=== PATIENT | male | born 1965 | race Caucasian/White ===

== ENCOUNTER 2024-02-22 17:30 | Outpatient (RCR) | payer SELFPAY | END 2024-02-22 23:59 | LOC: NS 17:30 | DX: Z71.3 Dietary counseling and surveillance (principal) ==

== ENCOUNTER 2025-03-17 12:22 | Inpatient (IN) | payer OTHER, SELFPAY ==
[2025-03-17 12:22] VITALS: BMI 38.8
--- OUTSIDE RECORDS SUMMARY | 2025-03-17 12:24 | XMS RPT_ITS | CCD ---
Author Organization [facility] Care Team Providers Care Application Chemist Name Role Phone Juan R Osullivan MD Primary Care Provider Referred, Self Attending Unavailable Referred, Self Attending Unavailable Juan R Osullivan MD Primary Care Provider [place] PATIENT SERVICE TECHNICIAN PST.[place] OLMEDO Unavailable [place] PATIENT SERVICE TECHNICIAN PST.Karla OLMEDO Unavailable PODLOGAR, [place] Referring Unavailable JUAN R OSULLIVAN Primary Care Unavailab le PODLOGAR, [place] Attending Unavailable JUAN R OSULLIVAN Primary Care Unavailab le [place] PATIENT SERVICE TECHNICIAN PST.Karla OLMEDO Unavailable Allergies Allergy Classification Reported Allergen(s) Allergy Type Date of Onset Reaction(s) Facility Angiotensin 2 Receptor Blockers (ARB) (1 source) Losartan Drug Allergy 2 GI Upset [facility] Work Phone: (20 sources) Seasonal allergy; Translations: [SEASONAL ALLERGIES] Allergy to substance 7 Other: See [facility] (20 sources) Losartan; Translations: [LOSARTAN] Drug Allergy 2 GI Upset [facility] Work Phone: (1 source) ALLERGIES NOT ON FILE; Translations: [ALLERGIES NOT ON FILE] Propensity to adverse reactions (disorder) [facility] Medications Current Medications Medication Drug Class(es) Dates Sig (Normalized) Sig (Original) atorvastatin 20 mg oral tablet (20 sources) HMG-CoA Reductase Inhibitor Start: 06-01-2022 End: 12-05-2023 take 1 tablet by mouth once daily at bedtime for hyperlipidemia atorvastatin (LIPITOR) 20 mg tablet Indications: Hyperlipidemia, mixed Take 1 tablet by mouth daily at bedtime. For cholesterol. 30 tablet 5 12/05/2023 Active Start: 03-09-2021 take 1 tablet by inge th once daily at bedtime for hyperlipidemia atorvastatin (LIPITOR) 20 mg tablet Indications: Hyperlipidemia, mixed Take 1 tablet by mouth daily at bedtime. For cholesterol. 30 tablet 5 03/09/2021 Active Comment on above: Take 1 tablet by inge th daily at bedtime. For cholesterol. bisacodyl 5 mg delayed release oral tablet (1 source) Stimulant Laxative Start: 03-15-20 25 Bisacodyl (DULCOLAX) 5 mg tab Take 2 tablets by mouth as needed for constipation. 20 tablet 03/15/2025 Active 12 hr cetirizine hydrochloride 5 mg / pseudoephedrine hydrochloride 120 mg extended release oral tablet (20 sources) alpha-Adrenergic Agonist, Histamine-1 Receptor Antagonist take 1 tablet by mouth once daily cetirizine-pseudoe phedrine (ZYRTEC-D) 5-120 mg per tablet Take 1 tablet by mouth once daily. Active Comment on above: Take 1 tablet by inge th once daily. CPAP (20 sources) Start: 10-18-19 18 CPAP Indications: SILVANO (obstructive sleep apnea) Initiate Auto PAP @ 5-20 cm of water with humidification. Mask (per patient preference) optional chin strap (if indicated) , filters, tubing, humidifier and lifetime supplies. 1 Device 10/17/2017 Active Start: 10-17-2017 CPAP Indicatio ns: SILVANO (obstructive sleep apnea) Initiate Auto PAP @ 5-20 cm of water with humidification. Mask (per patient preference) optional chin strap (if indicated) , filters, tubing, humidifier and lifetime supplies. 1 Device 0 10/17/2017 Active Comment on above: Initiate Auto PAP @ 5-20 cm of water with humidification. Mask (per patient preference) optional chin strap (if indicated) , filters, tubing, humidifier and lifetime supplies. empagliflozin 10 mg oral tablet (20 sources) Sodium-Glucose Cotransporter 2 Inhibitor Start: 024 End: 025 take 1 tablet by mouth once daily, then take 1 tablet by mouth once daily in the morning empagliflozin (JARDIANCE) 10 mg tablet Indications: Type 2 diabetes mellitus with hyperglycemia, unspecified whether jail insulin use (HCC) Take 1 tablet by mouth once daily. Take 1 tablet once daily in the morning 30 tablet 08/29/2024 Active Start: 12-23-2023 take 1 tablet by inge th once daily, then take 1 tablet by mouth once daily in the morning empagliflozin (JARDIANCE) 10 mg tablet Take 1 tablet by mouth once daily. Take 1 tablet once daily in the morning 30 tablet 1 12/23/2023 Active 3 ml insulin glargine 100 unt/ml pen injector (17 sources) Insulin Analog Start: 03-05-2024 End: 11-27-2024 inject 10 [IU] by subcutaneous injection once daily at bedtime insulin glargine (LANTUS SOLOSTAR U-100 INSULIN) 100 unit/mL (3 mL) Inject 10 Units subcutaneously daily at bedtime. 9 mL 08/29/2024 Active Start: 12-23-2023 inject 10 [IU] by lamar bcutaneous injection once daily at bedtime insulin glargine (LANTUS SOLOSTAR U-100 INSULIN) 100 unit/mL (3 mL) Inject 10 Units subcutaneously daily at bedtime. 3 Each 0 12/23/2023 Active lisinopril 10 mg oral tablet (20 sources) Angiotensin Converting Enzyme Inhibitor Start: 12-05-2023 take 1 tablet by mouth once daily lisinopril (ZESTRIL) 10 mg tablet Take 1 tablet by mouth once daily. 30 tablet 1 12/05/2023 Active Start: 05-27-2022 End: 12-05-2023 take 1 tablet by mouth once daily lisinopril (ZESTRIL, PRINIVIL) 20 mg tablet Indications: Essential hypertension Take 1 tablet by mouth once daily. 30 tablet 2 05/27/2022 12/05/2023 Discontinued Comment on above: Take 1 tablet by inge th once daily. polyethylene glycol 3350 40028 mg powder for oral solution (1 source) Osmotic Laxative Start: 03-15-2025 polyethylene glycol 3350 (MIRALAX) 17 gram/dose powder Dissolve dose in 4 - 8 ounces of liquid and take as directed. 116 g 03/15/2025 Active predniSONE 10 mg oral tablet (1 source) Start: 04-12-2023 End: 04-21-2023 predniSONE (DELTASONE) 10 mg tablet Indications: Irritant contact dermatitis, unspecified trigger Take 4 tabs daily for 3 days, then 2 tabs daily for 3 days, then 1 tab daily for 3 days with food. 21 tablet 0 04/12/2023 04/21/2023 Active Comment on above: Take 4 tabs daily fo r 3 days, then 2 tabs daily for 3 days, then 1 tab daily for 3 days with food. tadalafil 10 mg oral tablet (20 sources) Phosphodiesterase 5 Inhibitor Start: 06-22-2022 Tadalafil (CIALIS) 10 mg tablet Take 1 tablet by mouth as needed (Prior to sexual intercourse). 12 tablet 1 06/22/2022 Active Comment on above: Take 1 tablet by inge th as needed (Prior to sexual intercourse). Completed/Discontinued Medications Medication Drug Class(es) Dates Sig (Normalized) Sig (Original) famotidine 20 mg oral tablet (1 source) Histamine-2 Receptor Antagonist Start: 03-06-2021 End: 11-04-2021 take 1 tablet by mouth at bedtime as needed famotidine (PEPCID) 20 mg tablet Indications: Heartburn Take 1 tablet by mouth at bedtime as needed. 90 tablet 1 03/06/2021 11/04/2021 Discontinued (Course of therapy completed) Comment on above: Take 1 tablet by inge th at bedtime as needed. fluticasone propionate 0.05 mg/actuat metered dose nasal spray (3 sources) Corticosteroid End: 05-27-2022 take 1 spray(s) nasal route once daily fluticasone (FLONASE) 50 mcg/actuation nasal spray Use 1 [place] in each nostril once daily. 0 05/27/2022 Discontinued Comment on above: Use 1 [place] in each nostril once daily. losartan potassium 25 mg oral tablet (3 sources) Angiotensin 2 Receptor Gabriela Start: 11-04-2021 End: 05-27-2022 take 1 tablet by mouth once daily losartan (COZAAR) 25 mg tablet Indications: Hypertension, essential Take 1 tablet by mouth once daily. 90 tablet 1 11/04/2021 05/27/2022 Discontinued Comment on above: Take 1 tablet by inge th once daily. 24 hr metFORMIN hydrochloride 500 mg extended release oral tablet (7 sources) Biguanide Start: 06-01-2022 End: 12-05-2023 take 2 tablets by mouth twice daily at mealtime metFORMIN ER (GLUCOPHAGE XR) 500 mg 24 hr tablet Indications: Type 2 diabetes mellitus without complication, without long-term current use of insulin (HCC) Take 2 tablets by mouth twice daily with meals. 360 tablet 0 06/01/2022 12/05/2023 Discontinued (Course of therapy completed) Start: 05-27-2022 End: 11-23-2022 take 1 tablet by mouth once daily at breakfast metFORMIN ER (GLUCOPHAGE XR) 500 mg 24 hr tablet Indications: Type 2 diabetes mellitus without complication, without long-term current use of insulin (HCC) Take 1 tablet by mouth daily with breakfast. 90 tablet 1 05/27/2022 11/23/2022 Active Start: 03-09-2021 End: 05-27-2022 take 1 tablet by mouth once daily at breakfast metFORMIN (GLUCOPHAGE) 500 mg tablet Indications: Type 2 diabetes mellitus without complication, without long-term current use of insulin (HCC) Take 1 tablet by mouth daily with breakfast. 30 tablet 11 03/09/2021 05/27/2022 Discontinued Comment on above: Take 1 tablet by inge th daily with breakfast. Take 2 tablets by mo uth twice daily with meals. sildenafil 100 mg oral tablet (4 sources) Phosphodiesterase 5 Inhibitor Start: 11-26-2017 End: 06-22-2022 sildenafil (VIAGRA) 100 mg tablet Indications: Skin tag Take 1 tablet by mouth as needed (sexual intercourse). 6 tablet 2 11/26/2017 06/22/2022 Discontinued Comment on above: Take 1 tablet by inge th as needed (sexual intercourse). Problems Active Problems Problem Classification Problem Date Documented Da te Episodic/Chronic Allergic reactions (1 source) Irritant contact dermatitis; Translations: [Irritant contact dermatitis, unspecified cause] 04-12-2023 Episodic Diabetes mellitus with complications (5 sources) Hyperglycemia due to type 2 diabetes mellitus; Translations: [Type 2 diabetes mellitus with hyperglycemia] Onset: 5 03-06-2024 Chronic Diabetes mellitus without complication (20 sources) Type 2 diabetes mellitus without complication; Translations: [Type 2 diabetes mellitus without complications] Onset: 1 Chronic Diabetes mellitus without complication (20 sources) Prediabetes; Translations: [Prediabetes] 06-07-2017 Episodic Disorders of lipid metabolism (20 sources) Hyperlipidemia; Translations: [Hyperlipidemia, unspecified] Onset: 4 05-05-2017 Chronic Esophageal disorders (20 sources) Gastroesophageal reflux disease; Translations: [Gastro-esophageal reflux disease without esophagitis] 05-05-2017 Chronic Essential hypertension (20 sources) Essential hypertension; Translations: [Essential (primary) hypertension] Onset: 2 Chronic Immunizations and screening for infectious disease (2 sources) Needs influenza immunization; Translations: [Encounter for immunization] Episodic Other and unspecified benign neoplasm (1 source) Apocrine cystadenoma; Translations: [Other benign neoplasm of skin, unspecified] Episodic Other gastrointestinal disorders (4 sources) Acute constipation; Translations: [Constipation, unspecified] 03-15-2025 Episodic Other lower respiratory disease (20 sources) Snoring; Translations: [Snoring] 05-05-2017 Episodic Other male genital disorders (20 sources) Male erectile dysfunction, unspecified; Translations: [Impotence of organic origin] Onset: 8 10-17-2017 Chronic Other nutritional; endocrine; and metabolic disorders (20 sources) Body mass index 40+ - severely obese; Translations: [Morbid (severe) obesity due to excess calories] 05-05-2017 Chronic Other screening for suspected conditions (not mental disorders or infectious disease) (2 sources) Patient encounter status; Translations: [Encounter for screening for malignant neoplasm of prostate] Episodic Other skin disorders (1 source) Skin tag; Translations: [Other hypertrophic disorders of the skin] Episodic Other upper respiratory disease (20 sources) Seasonal allergy; Translations: [Other seasonal allergic rhinitis] 05-05-2017 Chronic Residual codes; unclassified (20 sources) Obstructive sleep apnea syndrome; Translations: [Obstructive sleep apnea (adult) (pediatric)] Chronic Residual codes; unclassified (1 source) Obstructive sleep apnea (adult) (pediatric); Translations: [SILVANO (obstructive sleep apnea)] Onset: 8 Chronic Past or Other Problems Problem Classification Problem Date Documented Da te Episodic/Chronic Other skin disorders (20 sources) Hidradenitis suppurativa; Translations: [Hidradenitis suppurativa] Onset: 07-22-2021 07-22-2021 Episodic Screening and history of mental health and substance abuse codes (1 source) Encounter for screening for depression; Translations: [Depression screening] Onset: 12-05-2023 Episodic Results Test Name Value Interpretation Reference Range Facil ity XR Abdomen Supine and Uprigh ton 03-15-2025 IMPRESSION: Moderate to large stool burden. Intranet Developer: MAYELIN Transcribe Date/Time: Mar 15 2025 2:49P Dictated by : RAUL YUSUF MD This examination was interpreted and the report reviewed and electronically signed by: RAUL YUSUF MD on Mar 15 2025 2:49PM EST DIVISION OF RADIOLOGY * * *Final Report* * * DATE OF EXAM: Mar 15 2025 2:37PM [id number] - XR ABD 2V SUPINE W UPR/DECUB/CTL / PROCEDURE REASON: Acute constipation * * * * Physician Interpretation * * * * EXAMINATION / TECHNIQUE: XR ABD 2V SUPINE W UPR/DECUB/CTL HISTORY: Acute constipation COMPARISON: None RESULT: Moderate to large stool burden. Nonobstructive bowel gas pattern. Degenerative spine changes. DIVISION OF RADIOLOGY Provider, [facility] - 03/15/2025 * * *Final Report* * * DATE OF EXAM: Mar 15 2025 2:37PM [id number] - XR ABD 2V SUPINE W UPR/DECUB/CTL / PROCEDURE REASON: Acute constipation * * * * Physician Interpretation * * * * EXAMINATION / TECHNIQUE: XR ABD 2V SUPINE W UPR/DECUB/CTL HISTORY: Acute constipation COMPARISON: None RESULT: Moderate to large stool burden. Nonobstructive bowel gas pattern. Degenerative spine changes. IMPRESSION IMPRESSION: Moderate to large stool burden. Intranet Developer: MAYELIN Transcribe Date/Time: Mar 15 2025 2:49P Dictated by : RAUL YUSUF MD This examination was interpreted and the report reviewed and electronically signed by: RAUL YUSUF MD on Mar 15 2025 2:49PM EST [facility] Radiology Study observation (narrative) [facility] XR Abdomen Supine and Uprigh tOrdered By: Cc Provider on 03-15-2025 [facility] Steven 11-14-2024 CNPN Telephone (FAMPWS) PHI GONZALEZ ([id number]) 1965 M Date Time Provider Department 11/14/24 JUAN R OSULLIVAN During your visit today, we recorded the following information about you: Juan R Osullivan MD 11/14/2024 2:57 PM Signed Patient is due for f/u on DM and SILVANO. Cancelled last 2 OV's. I got the following message from DM education: Saw this patient today for diabetes ed, just some thoughts for consideration. Refer to [facility] for evaluation, not using his CPAP at all. Second thought, consider a GLP-1, if he is a good candidate from a medical stand point, he is interested. Sleep apnea is now an indicator for [place]. Not sure if his insurance will cover and which one is preferred, but worth considering. Recommend OV in next 1-2 weeks. Jessica Wynn LPN 11/14/2024 3:26 PM Signed Contacted patient and agreeable. Patient scheduled for 11/30/24. Jessica Wynn LPN Allergies As of Date: 11/14/2024 Noted Allergy Reaction LOSARTAN 05/27/2022 8 - GI Upset SEASONAL ALLERGIES 05/05/2017 14 - Other: See Comments Comments: Watery eyes, cough, and stuffy nose Date Reviewed: 12/05/2023 Reviewed by: Trevor Hill LPN - Fully Assessed Reason for Visit: Appointment [[id number]] Prescriptions as of 11/14/2024 - insulin needles, DISPOSABLE, (PEN NEEDLE) 31 gauge x 5/16 Use one needle per dose. once per day. - insulin glargine (LANTUS SOLOSTAR U-100 INSULIN) 100 unit/mL (3 mL) Inject 10 Units subcutaneously daily at bedtime. - empagliflozin (JARDIANCE) 10 mg tablet Take 1 tablet by mouth once daily. Take 1 tablet once daily in the morning - empagliflozin (JARDIANCE) 10 mg tablet Take 1 tablet by mouth once daily. Take 1 tablet once daily in the morning - Lancets Test blood sugar(s) 3 times daily. Dx: Type 2 DM - Uncontrolled E11.65 Insulin: Yes - blood sugar diagnostic (BLOOD GLUCOSE TEST) test strip Test blood sugar(s) 3 times daily. Dx: Type 2 DM - Uncontrolled E11.65 Insulin: Yes - lisinopril (ZESTRIL) 10 mg tablet Take 1 tablet by mouth once daily. - atorvastatin (LIPITOR) 20 mg tablet Take 1 tablet by mouth daily at bedtime. For cholesterol. - Tadalafil (CIALIS) 10 mg tablet Take 1 tablet by mouth as needed (Prior to sexual intercourse). - CPAP Initiate Auto PAP @ 5-20 cm of water with humidification. Mask (per patient preference) optional chin strap (if indicated) , filters, tubing, humidifier and lifetime supplies. - cetirizine-pseudoeph edrine (ZYRTEC-D) 5-120 mg per tablet Take 1 tablet by mouth once daily. Problem List As Of Date 11/14/2024 Noted Resolved Morbid obesity with BMI of 40.0-44.9, adult (HC* GERD (gastroesophageal reflux disease) [K21.9] Seasonal allergies [J30.2] Snoring [R06.83] Hyperlipidemia [E78.5] Prediabetes [R73.03] SIVLANO (obstructive sleep apnea) [G47.33] Erectile dysfunction [N52.9] 10/17/2017 Type 2 diabetes mellitus without complication, *03/09/2021 Hidradenitis suppurativa [L73.2] 07/22/2021 Essential hypertension [I10] 05/27/2022 Encounter Status:Closed by JESSICA WYNN on 11/14/24 [facility] 10-18-2024 CNNURSE Nurse Visit (EDEDSJ) PHI GONZALEZ ([id number]) 1965 M Date Time Provider Department 10/18/24 3:00 PM DANIELE MCKEON During your visit today, we recorded the following information about you: Daniele Mckeon RN 10/18/2024 6:00 PM Signed DIABETES SELF-MANAGEMENT EDUCATION AND SUPPORT Location: [facility] Type of visit: Virtual (with video) individual I have communicated my name and active licensure. The patient's identity and physical location were verified at the time of this visit. Either the patient or their legal key account representative has been informed of the risks and benefits of -- and alternatives to -- treatment through a remote evaluation and consents to proceed with the evaluation remotely. Types of DSMES: Initial/Comprehensiv e (add to or update ADA spreadsheet) PATIENT'S MAIN CONCERN TODAY: my doctor suggested this visit a year ago but I never scheduled it. When my A1c went up to over 11, his nurse practitioner said I really need to take insulin, so I started. Support person present for education today: none Cognitive ability: Alert and oriented Motivation to learn: Interested Learning barriers identified by educator: none and openly discussed his lack of motivation to make healthy lifestyle changes but after more discussion, determined he has made some effort and praised for same Method of instruction: verbal INTERVENTIONS/TOPICS COVERED: -Diabetes Pathophysiology: diabetes disease process, role of insulin in the body, role of glucose in the body, difference between Type 1 and Type 2, Type 2 diabetes risk factors, progression of Type 2 , and symptoms of diabetes -Monitoring: A1c meaning and target <7%, BG targets, Pt able to do a successful self-check of BG with no coaching, and sharps disposal -Healthy Eating: impact of carbs on BG and portion sizes -Medications: medication safety/timing, reviewed home DM meds, basal insulin, oral agents discussed: empagliflozin (Jardiance), and discussed GLP-1 as an option, he was very interested, suggested he follow up discussion with PCP to determine if he would be a good candidate -Physical Activity: benefits of exercise and types of exercise -Acute Complications: hyperglycemia s/sx/tx -Chronic Complications: importance of BG control to reduce risks -Healthy Coping and Support: benefits of a support system, types of support (ex:family, friends, support groups, diabetes groups on social media) DIABETES ASSESSMENT: Referring Physician: [place] Tavares Previous Diabetes Education? No What are you hoping to gain from this visit? Help with a plan to manage and motivate In your words, what is diabetes? Body produces too much sugar What concerns you about having diabetes? Not really sure what it will take to make me take it more serious, even with my A1c high. There are things I can do to make it better, not sure why I don't. Diabetes History: Type of Diabetes: Type 2 What year were you diagnosed? 2021 Does anyone in your family have diabetes? asked/not answered unknown, adopted How do you learn best? 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 never How often does someone help you read your pill bottles? never How often does someone have to help you take care of your diabetes? never Major stressors:asked/not answered How do you manage stress? asked/not answered Do any of the following things get in the way of managing your diabetes? No self-identified issues Health History: Most recent eye exam: Asked/not answered Most recent dental exam:Asked/not answered Most recent foot exam:Asked/not answered How often do you inspect your feet at home? Asked/Not answered Do you use tobacco? Asked/not answered Do you use alcohol? Yes, How much? Has stopped drinking during the week, now just weekends, sips bourban, stopped Old fashion mixed drink, too much sugar In the past 12 months have you had any: Hospital Admissions: Asked/not answered ER Visits: Asked/not answered Primary Care Visits: Asked/not answered What are your general feelings about you overall health? Other I have sleep apnea, overweight, sedentary lifestyle, don't eat healthy, I have not changed and don't know why Medical Issues/Complications : reviewed below PAST MEDICAL HISTORY Diagnosis Date Coronary artery disease Erectile dysfunction Essential hypertension GERD (gastroesophageal reflux disease) Hyperlipidemia Morbid obesity with BMI of 40.0-44.9, adult (HCC) SILVANO (obstructive sleep apnea) severe (more content not included)... Normal [facility] Steven 08-29-2024 CNPN Telephone (FAMPWS) LISAPHI ([id number]) 1965 M Date Time Provider Department 08/29/24 JUAN R OSULLIVAN During your visit today, we recorded the following information about you: Carole Greer 08/29/2024 8:38 AM Signed Patient is asking for a refill that is empagliflozin (JARDIANCE) 10 mg tablet ( Patient last seen 12/05/23 Future visit scheduled: no PHARMACY: [facility]. Masha Aguayo MA 08/29/2024 8:48 AM Signed Per EPIC, Jardiance last prescribed 05/29/24, #30. Phone call to patient to see if he has been taking the jardiance. Pt states that he finished that prescription in June, so he has gone without all of July. Pt KILEY with [place] 12/04/24 and was asked to follow up in 3 months. DAVID Guillory Christopher B, MD 08/29/2024 9:52 AM Signed I will send in another 30 day refill, but needs OV in the next 1 month for DM follow up. Jessica Wynn LPN 08/29/2024 2:25 PM Signed Phoned patient and updated him with provider's message. Patient voiced understanding. Jessica Wynn LPN Allergies As of Date: 08/29/2024 Noted Allergy Reaction LOSARTAN 05/27/2022 8 - GI Upset SEASONAL ALLERGIES 05/05/2017 14 - Other: See Comments Comments: Watery eyes, cough, and stuffy nose Date Reviewed: 12/05/2023 Reviewed by: Trevor Hill LPN - Fully Assessed Reason for Visit: requesting refill that is [Other] Primary Visit Diagnosis:Type 2 diabetes mellitus with hyperglycemia, unspecified whether predatory animal exterminator insulin use (HCC) [E11.65] Order(s):empaglifloz in (JARDIANCE) 10 mg tabletTake 1 tablet by mouth once daily. Take 1 tablet once daily in the morningDisp: 30 tabletRfl: 0 Prescriptions as of 08/29/2024 - insulin glargine (LANTUS SOLOSTAR U-100 INSULIN) 100 unit/mL (3 mL) Inject 10 Units subcutaneously daily at bedtime. - empagliflozin (JARDIANCE) 10 mg tablet Take 1 tablet by mouth once daily. Take 1 tablet once daily in the morning - empagliflozin (JARDIANCE) 10 mg tablet Take 1 tablet by mouth once daily. Take 1 tablet once daily in the morning - insulin needles, DISPOSABLE, (PEN NEEDLE) 31 gauge x 5/16 Use one needle per dose. once per day. - Lancets Test blood sugar(s) 3 times daily. Dx: Type 2 DM - Uncontrolled E11.65 Insulin: Yes - blood sugar diagnostic (BLOOD GLUCOSE TEST) test strip Test blood sugar(s) 3 times daily. Dx: Type 2 DM - Uncontrolled E11.65 Insulin: Yes - lisinopril (ZESTRIL) 10 mg tablet Take 1 tablet by mouth once daily. - atorvastatin (LIPITOR) 20 mg tablet Take 1 tablet by mouth daily at bedtime. For cholesterol. - Tadalafil (CIALIS) 10 mg tablet Take 1 tablet by mouth as needed (Prior to sexual intercourse). - CPAP Initiate Auto PAP @ 5-20 cm of water with humidification. Mask (per patient preference) optional chin strap (if indicated) , filters, tubing, humidifier and lifetime supplies. - cetirizine-pseudoeph edrine (ZYRTEC-D) 5-120 mg per tablet Take 1 tablet by mouth once daily. Problem List As Of Date 08/29/2024 Noted Resolved Morbid obesity with BMI of 40.0-44.9, adult (HC* GERD (gastroesophageal reflux disease) [K21.9] Seasonal allergies [J30.2] Snoring [R06.83] Hyperlipidemia [E78.5] Prediabetes [R73.03] SILVANO (obstructive sleep apnea) [G47.33] Erectile dysfunction [N52.9] 10/17/2017 Type 2 diabetes mellitus without complication, *03/09/2021 Hidradenitis suppurativa [L73.2] 07/22/2021 Essential hypertension [I10] 05/27/2022 Prescriptions ordered this encounter Disp Refills Start End EMPAGLIFLOZIN 10 MG TABLET 30 t* 0 08/29/2024 09/28/2024 Route: ORAL Sig: Take 1 tablet by mouth once daily. Take 1 tablet once daily in the morning Medications Discontinued During This Encounter Prescriptions - empagliflozin (JARDIANCE) 10 mg tablet (Discontinued) Take 1 tablet by mouth once daily. Take 1 tablet once daily in the morning Encounter Status:Closed by JESSICA WYNN on 08/29/24 [facility] 06-27-2024 CNPN Telephone (FAMPWS) PHI GONZALEZ ([id number]) 1965 M Date Time Provider Department 06/27/24 JUAN R OSULLIVAN During your visit today, we recorded the following information about you: India Miller 06/27/2024 9:53 AM Signed Derik is calling Juan R Osullivan MD today to request an order for labs for his upcoming appointment. Please send a message in [employer] when labs are ordered. TY Patient has been identified by name and birthdate. Duration of symptoms: N/A Person calling: self Call patient at: at home [phone] (home) [phone] (cell) Was an appointment scheduled: No Closing statement: Results or non-symptom based questions: Thank you for calling [facility], your call will be returned within the next business day. Juan R Meng MD 06/27/2024 11:27 AM Signed Labs ordered to be completed 1-2 days prior to OV. Anthony Curran RN 06/27/2024 11:56 AM Signed [employer] msg sent to pt as requested. Allergies As of Date: 06/27/2024 Noted Allergy Reaction LOSARTAN 05/27/2022 8 - GI Upset SEASONAL ALLERGIES 05/05/2017 14 - Other: See Comments Comments: Watery eyes, cough, and stuffy nose Date Reviewed: 12/05/2023 Reviewed by: Trevor Hill LPN - Fully Assessed Reason for Visit: Orders [681] Primary Visit Diagnosis:Type 2 diabetes mellitus with hyperglycemia, unspecified whether jail insulin use (HCC) [E11.65] Order(s):ALBUMIN/CRE ATININE RATIO, URINE [SQUACR] Order #: [id number] FUTURE COMPREHENSIVE METABOLIC PANEL [SQCMP] Order #: [id number] FUTURE HEMOGLOBIN A1C [EEDWN1C] Order #: [id number] FUTURE COMPLETE BLOOD COUNT AND DIFFERENTIAL [SQCBCDIF] Order #: [id number] FUTURE LIPID PANEL, NONFASTING [SQLIPNF] Order #: [id number] FUTURE Prescriptions as of 06/27/2024 - empagliflozin (JARDIANCE) 10 mg tablet Take 1 tablet by mouth once daily. Take 1 tablet once daily in the morning - insulin glargine (LANTUS SOLOSTAR U-100 INSULIN) 100 unit/mL (3 mL) Inject 10 Units subcutaneously daily at bedtime. - insulin needles, DISPOSABLE, (PEN NEEDLE) 31 gauge x 5/16 Use one needle per dose. once per day. - Lancets Test blood sugar(s) 3 times daily. Dx: Type 2 DM - Uncontrolled E11.65 Insulin: Yes - blood sugar diagnostic (BLOOD GLUCOSE TEST) test strip Test blood sugar(s) 3 times daily. Dx: Type 2 DM - Uncontrolled E11.65 Insulin: Yes - lisinopril (ZESTRIL) 10 mg tablet Take 1 tablet by mouth once daily. - atorvastatin (LIPITOR) 20 mg tablet Take 1 tablet by mouth daily at bedtime. For cholesterol. - Tadalafil (CIALIS) 10 mg tablet Take 1 tablet by mouth as needed (Prior to sexual intercourse). - CPAP Initiate Auto PAP @ 5-20 cm of water with humidification. Mask (per patient preference) optional chin strap (if indicated) , filters, tubing, humidifier and lifetime supplies. - cetirizine-pseudoeph edrine (ZYRTEC-D) 5-120 mg per tablet Take 1 tablet by mouth once daily. Problem List As Of Date 06/27/2024 Noted Resolved Morbid obesity with BMI of 40.0-44.9, adult (HC* GERD (gastroesophageal reflux disease) [K21.9] Seasonal allergies [J30.2] Snoring [R06.83] Hyperlipidemia [E78.5] Prediabetes [R73.03] SILVANO (obstructive sleep apnea) [G47.33] Erectile dysfunction [N52.9] 10/17/2017 Type 2 diabetes mellitus without complication, *03/09/2021 Hidradenitis suppurativa [L73.2] 07/22/2021 Essential hypertension [I10] 05/27/2022 Encounter Status:Closed by ANTHONY CURRAN on 06/27/24 Normal [facility] CNCOon 05-07-2024 CNCO Letter Text Normal [facility] CNPNon 03-06-2024 CNPN Telephone (FAMPWS) PHI GONZALEZ ([id number]) 1965 M Date Time Provider Department 03/06/[facility] During your visit today, we recorded the following information about you: Daniele Cortez 03/06/2024 8:43 AM Signed Patient called to request lab orders for his upcoming follow up appt with Dr. Osullivan. Please call him at [phone] when placed. Juan R Osullivan MD 03/06/2024 10:06 AM Signed Labs ordered. Come in this week to have them done so we can review at his appointment. Iliana Irving LPN 03/06/2024 10:26 AM Signed Phoned patient left message to return call and ask to speak to a nurse. Yudi Pimentel MA 03/09/2024 10:51 AM Signed [employer] message sent to pt notifying him we tried to contact him with message left for a call back. Notified pt that fasting labs and a urine have been ordered to complete this week for his upcoming appt next week. Will keep encounter open to make sure pt has read his message. DAVID Jeter Lori, LPN 03/12/2024 3:33 PM Signed Phoned patient and advised him PCP placed orders last week and recommend at least 2 days prior to appt to complete labs. Patient reports he will try to come tomorrow to complete. Jessica Wynn LPN Allergies As of Date: 03/06/2024 Noted Allergy Reaction LOSARTAN 05/27/2022 8 - GI Upset SEASONAL ALLERGIES 05/05/2017 14 - Other: See Comments Comments: Watery eyes, cough, and stuffy nose Date Reviewed: 12/05/2023 Reviewed by: Trevor Hill LPN - Fully Assessed Reason for Visit: Lab Orders [1688] Primary Visit Diagnosis:Type 2 diabetes mellitus with hyperglycemia, unspecified whether jail insulin use (HCC) [E11.65] Order(s):COMPLETE BLOOD COUNT AND DIFFERENTIAL [SQCBCDIF] Order #: [id number] FUTURE COMPREHENSIVE METABOLIC PANEL [SQCMP] Order #: [id number] FUTURE HEMOGLOBIN A1C [VYFPH0R] Order #: [id number] FUTURE ALBUMIN/CREATININE RATIO, URINE [SQUACR] Order #: [id number] FUTURE LIPID PANEL, NONFASTING [SQLIPNF] Order #: [id number] FUTURE Prescriptions as of 03/12/2024 - empagliflozin (JARDIANCE) 10 mg tablet Take 1 tablet by mouth once daily. Take 1 tablet once daily in the morning - insulin glargine (LANTUS SOLOSTAR U-100 INSULIN) 100 unit/mL (3 mL) Inject 10 Units subcutaneously daily at bedtime. - insulin needles, DISPOSABLE, (PEN NEEDLE) 31 gauge x 5/16 Use one needle per dose. once per day. - Lancets Test blood sugar(s) 3 times daily. Dx: Type 2 DM - Uncontrolled E11.65 Insulin: Yes - blood sugar diagnostic (BLOOD GLUCOSE TEST) test strip Test blood sugar(s) 3 times daily. Dx: Type 2 DM - Uncontrolled E11.65 Insulin: Yes - lisinopril (ZESTRIL) 10 mg tablet Take 1 tablet by mouth once daily. - atorvastatin (LIPITOR) 20 mg tablet Take 1 tablet by mouth daily at bedtime. For cholesterol. - Tadalafil (CIALIS) 10 mg tablet Take 1 tablet by mouth as needed (Prior to sexual intercourse). - CPAP Initiate Auto PAP @ 5-20 cm of water with humidification. Mask (per patient preference) optional chin strap (if indicated) , filters, tubing, humidifier and lifetime supplies. - cetirizine-pseudoeph edrine (ZYRTEC-D) 5-120 mg per tablet Take 1 tablet by mouth once daily. Problem List As Of Date 03/06/2024 Noted Resolved Morbid obesity with BMI of 40.0-44.9, adult (HC* GERD (gastroesophageal reflux disease) [K21.9] Seasonal allergies [J30.2] Snoring [R06.83] Hyperlipidemia [E78.5] Prediabetes [R73.03] SILVANO (obstructive sleep apnea) [G47.33] Erectile dysfunction [N52.9] 10/17/2017 Type 2 diabetes mellitus without complication, *03/09/2021 Hidradenitis suppurativa [L73.2] 07/22/2021 Essential hypertension [I10] 05/27/2022 Encounter Status:Closed by JESSICA WYNN on 03/12/24 [facility] 02-02-2024 [facility] Telephone (PHMEWO) PHI GONZALEZ ([id number]) 1965 M Date Time Provider Department 02/02/24 CHARISSE NGUYEN KAIDEN During your visit today, we recorded the following information about you: Charisse Nguyen RPh 02/02/2024 3:58 PM Signed Primary Care Pharmacy Rescheduling Outreach Call center, please contact patient and reschedule in person, telephone, and virtual visit for Diabetes management within ~4 week(s). (Visit length: 60 minutes - NEW) Thank you, Charisse Nguyen, PharmD, BCACP Primary Care Clinical Director Of [employer] 02/02/2024 3:57 PM Madi Regan 02/02/2024 5:06 PM Signed Telephoned the patient regarding missed appt. Left a message. First attempt. Jennifer Regan HUC 02/03/2024 9:35 AM Addendum Telephoned the patient to schedule a new Primary Care pharmacy appt. Left a message.Second attempt. Made two attempts to contact the patient. Patient was sent [employer] message. If the patient returns a call, an appt will be scheduled. Madi Regan 02/09/2024 10:26 AM Signed Patient has not responded to outreach attempts via phone or [employer]. Two attempts to contact have been made. Routing to [facility]. Allergies As of Date: 02/02/2024 Noted Allergy Reaction LOSARTAN 05/27/2022 8 - GI Upset SEASONAL ALLERGIES 05/05/2017 14 - Other: See Comments Comments: Watery eyes, cough, and stuffy nose Date Reviewed: 12/05/2023 Reviewed by: Trevor Hill LPN - Fully Assessed Reason for Visit: Missed Appointment [1304] Cmt: Pharmacy Visit Rescheduling Prescriptions as of 02/09/2024 - insulin needles, DISPOSABLE, (PEN NEEDLE) 31 gauge x 5/16 Use one needle per dose. once per day. - Lancets Test blood sugar(s) 3 times daily. Dx: Type 2 DM - Uncontrolled E11.65 Insulin: Yes - blood sugar diagnostic (BLOOD GLUCOSE TEST) test strip Test blood sugar(s) 3 times daily. Dx: Type 2 DM - Uncontrolled E11.65 Insulin: Yes - empagliflozin (JARDIANCE) 10 mg tablet Take 1 tablet by mouth once daily. Take 1 tablet once daily in the morning - insulin glargine (LANTUS SOLOSTAR U-100 INSULIN) 100 unit/mL (3 mL) Inject 10 Units subcutaneously daily at bedtime. - lisinopril (ZESTRIL) 10 mg tablet Take 1 tablet by mouth once daily. - atorvastatin (LIPITOR) 20 mg tablet Take 1 tablet by mouth daily at bedtime. For cholesterol. - Tadalafil (CIALIS) 10 mg tablet Take 1 tablet by mouth as needed (Prior to sexual intercourse). - CPAP Initiate Auto PAP @ 5-20 cm of water with humidification. Mask (per patient preference) optional chin strap (if indicated) , filters, tubing, humidifier and lifetime supplies. - cetirizine-pseudoeph edrine (ZYRTEC-D) 5-120 mg per tablet Take 1 tablet by mouth once daily. Problem List As Of Date 02/02/2024 Noted Resolved Morbid obesity with BMI of 40.0-44.9, adult (HC* GERD (gastroesophageal reflux disease) [K21.9] Seasonal allergies [J30.2] Snoring [R06.83] Hyperlipidemia [E78.5] Prediabetes [R73.03] SILVANO (obstructive sleep apnea) [G47.33] Erectile dysfunction [N52.9] 10/17/2017 Type 2 diabetes mellitus without complication, *03/09/2021 Hidradenitis suppurativa [L73.2] 07/22/2021 Essential hypertension [I10] 05/27/2022 Encounter Status:[facility] (NANCY[facility] PHI GONZALEZ ([id number]) 1965 M Date Time Provider Department 01/27/24 INDIA TAVARES During your visit today, we recorded the following information about you: Masha Oreilly 01/27/2024 12:23 PM Livia More is calling India Tavares APRN.CNP today to request Medication Problem (Patient states that the insulin pen needles were not sent to the pharmacy. Please send script over to his pharmacy ) Patient has been identified by name and birthdate. Duration of symptoms: N/A Person calling: self Call patient at: at home [phone] (home) [phone] (cell) Was an appointment scheduled: No Closing statement: Results or non-symptom based questions: Thank you for calling [facility], your call will be returned within the next business day. India Mora APRN.CNP 01/27/2024 12:53 PM Signed Prescription sent. India Tavares APRN.Jessica Julien LPN 01/27/2024 12:59 PM Signed Patient updated and voiced understanding. Jessica Wynn LPN Allergies As of Date: 01/27/2024 Noted Allergy Reaction LOSARTAN 05/27/2022 8 - GI Upset SEASONAL ALLERGIES 05/05/2017 14 - Other: See Comments Comments: Watery eyes, cough, and stuffy nose Date Reviewed: 12/05/2023 Reviewed by: Trevor Hill LPN - Fully Assessed Reason for Visit: Medication Problem [65] Cmt: Patient states that the insulin pen needles were not sent to the pharmacy. Please send script over to his pharmacy Order(s):insulin needles, DISPOSABLE, (PEN NEEDLE) 31 gauge x 5/16Use one needle per dose. once per day.Disp: 100 EachRfl: 11 Prescriptions as of 01/27/2024 - insulin needles, DISPOSABLE, (PEN NEEDLE) 31 gauge x 5/16 Use one needle per dose. once per day. - Lancets Test blood sugar(s) 3 times daily. Dx: Type 2 DM - Uncontrolled E11.65 Insulin: Yes - blood sugar diagnostic (BLOOD GLUCOSE TEST) test strip Test blood sugar(s) 3 times daily. Dx: Type 2 DM - Uncontrolled E11.65 Insulin: Yes - empagliflozin (JARDIANCE) 10 mg tablet Take 1 tablet by mouth once daily. Take 1 tablet once daily in the morning - insulin glargine (LANTUS SOLOSTAR U-100 INSULIN) 100 unit/mL (3 mL) Inject 10 Units subcutaneously daily at bedtime. - lisinopril (ZESTRIL) 10 mg tablet Take 1 tablet by mouth once daily. - atorvastatin (LIPITOR) 20 mg tablet Take 1 tablet by mouth daily at bedtime. For cholesterol. - Tadalafil (CIALIS) 10 mg tablet Take 1 tablet by mouth as needed (Prior to sexual intercourse). - CPAP Initiate Auto PAP @ 5-20 cm of water with humidification. Mask (per patient preference) optional chin strap (if indicated) , filters, tubing, humidifier and lifetime supplies. - cetirizine-pseudoeph edrine (ZYRTEC-D) 5-120 mg per tablet Take 1 tablet by mouth once daily. Problem List As Of Date 01/27/2024 Noted Resolved Morbid obesity with BMI of 40.0-44.9, adult (HC* GERD (gastroesophageal reflux disease) [K21.9] Seasonal allergies [J30.2] Snoring [R06.83] Hyperlipidemia [E78.5] Prediabetes [R73.03] SILVANO (obstructive sleep apnea) [G47.33] Erectile dysfunction [N52.9] 10/17/2017 Type 2 diabetes mellitus without complication, *03/09/2021 Hidradenitis suppurativa [L73.2] 07/22/2021 Essential hypertension [I10] 05/27/2022 Prescriptions ordered this encounter Disp Refills Start End PEN NEEDLE, DIABETIC 31 GAUGE X 12/07 100 * 11 01/27/2024 Sig: Use one needle per dose. once per day. Encounter Status:Closed by JESSICA WYNN on 01/27/24 [facility] 12-26-2023 CNPN Telephone (PHARMN) PHI GONZALEZ ([id number]) 1965 M Date Time Provider Department 12/26/23 PHARMACIST PHARMN During your visit today, we recorded the following information about you: McconnellHemalatha Dodge 12/26/2023 10:26 AM Signed Called and spoke to patient to schedule Primary Care Pharmacy consult on 02/02/2024 (soonest available at [facility]). Allergies As of Date: 12/26/2023 Noted Allergy Reaction LOSARTAN 05/27/2022 8 - GI Upset SEASONAL ALLERGIES 05/05/2017 14 - Other: See Comments Comments: Watery eyes, cough, and stuffy nose Date Reviewed: 12/05/2023 Reviewed by: Trevor Hill LPN - Fully Assessed Reason for Visit: Appointment [186] Cmt: Primary Care Pharmacy Prescriptions as of 12/26/2023 - Lancets Test blood sugar(s) 3 times daily. Dx: Type 2 DM - Uncontrolled E11.65 Insulin: Yes - blood sugar diagnostic (BLOOD GLUCOSE TEST) test strip Test blood sugar(s) 3 times daily. Dx: Type 2 DM - Uncontrolled E11.65 Insulin: Yes - empagliflozin (JARDIANCE) 10 mg tablet Take 1 tablet by mouth once daily. Take 1 tablet once daily in the morning - insulin glargine (LANTUS SOLOSTAR U-100 INSULIN) 100 unit/mL (3 mL) Inject 10 Units subcutaneously daily at bedtime. - lisinopril (ZESTRIL) 10 mg tablet Take 1 tablet by mouth once daily. - atorvastatin (LIPITOR) 20 mg tablet Take 1 tablet by mouth daily at bedtime. For cholesterol. - Tadalafil (CIALIS) 10 mg tablet Take 1 tablet by mouth as needed (Prior to sexual intercourse). - CPAP Initiate Auto PAP @ 5-20 cm of water with humidification. Mask (per patient preference) optional chin strap (if indicated) , filters, tubing, humidifier and lifetime supplies. - cetirizine-pseudoeph edrine (ZYRTEC-D) 5-120 mg per tablet Take 1 tablet by mouth once daily. Problem List As Of Date 12/26/2023 Noted Resolved Morbid obesity with BMI of 40.0-44.9, adult (HC* GERD (gastroesophageal reflux disease) [K21.9] Seasonal allergies [J30.2] Snoring [R06.83] Hyperlipidemia [E78.5] Prediabetes [R73.03] SILVANO (obstructive sleep apnea) [G47.33] Erectile dysfunction [N52.9] 10/17/2017 Type 2 diabetes mellitus without complication, *03/09/2021 Hidradenitis suppurativa [L73.2] 07/22/2021 Essential hypertension [I10] 05/27/2022 Encounter Status:Closed by HEMALATHA DELANEY on 12/26/23 Normal [facility] Albumin/Creatinineon 30-2 024 Albumin/Creatinine DL <= 20 mg/L (U) [Mass ratio] 6.2 ug/mg Creat Normal <30.0 [facility] Comment on above: Performed By: #### 1 4959-1 #### TAO Loza ([id number]) [facility] ([facility]) [id number] [place] [address] 20298 Albumin/Creatinine DL <= 20 mg/L (U) [Mass ratio]on 12-22-2023 Albumin DL <= 20 mg/L (U) [Mass/Vol] 10.2 mg/L Normal Not established [facility] Comment on above: Performed By: #### 1 4959-1 #### TAO Loza ([id number]) [facility] ([facility]) [address] [place] [address] 01937 Creatinine (U) [Mass/Vol] 163.9 mg/dL Normal 20.0-370.0 [facility] Comment on above: Performed By: #### 1 4959-1 #### TAO Loza ([id number]) [facility] ([facility]) [address] [place] [address] 13921 CBC W Auto Differential pane l (Bld)on 12-22-2023 Basophils (Bld) [#/Vol] 0.06 x10*3/uL Normal 0.00-0.10 [facility] Comment on above: Performed By: #### 5 7021-8 #### ISABEL MENDEZ ([id number]) [facility] ([facility]) [address] [place] [address] 73580 Basophils/100 WBC (Bld) 0.9 % Normal 0.0-2.0 [facility] Comment on above: Performed By: #### 5 7021-8 #### SIABEL MENDEZ ([id number]) [facility] ([facility]) [address] [place] [address] 26759 Eosinophils (Bld) [#/Vol] 0.27 x10*3/uL Normal 0.00-0.70 [facility] Comment on above: Performed By: #### 5 7021-8 #### ISABEL MENDEZ ([id number]) [facility] ([facility]) [address] [place] [address] 81415 Eosinophils/100 WBC (Bld) 4.1 % Normal 0.0-6.0 [facility] Comment on above: Performed By: #### 5 7021-8 #### ISABEL MENDEZ ([id number]) [facility] ([facility]) [address] [place] [address] 15445 Erythrocyte distribution width (RBC) [Ratio] 12.1 % Normal 11.5-14.5 [facility] Comment on above: Performed By: #### 5 7021-8 #### ISABEL MENDEZ ([id number]) [facility] ([facility]) [address] [place] [address] Hematocrit (Bld) [Volume fraction] 46.0 % Normal 41.0-52.0 [facility] Comment on above: Performed By: #### 5 7021-8 #### ISABEL MENDEZ ([id number]) [facility] ([facility]) [address] [place] [address] Hemoglobin (Bld) [Mass/Vol] 15.3 g/dL Normal 13.5-17.5 [facility] Comment on above: Performed By: #### 5 7021-8 #### ISABEL MENDEZ ([id number]) [facility] ([facility]) [address] [place] [address] 35609 Immature granulocytes (Bld) [#/Vol] 0.02 x10*3/uL Normal 0.00-0.70 [facility] Comment on above: Performed By: #### 5 7021-8 #### ISABEL MENDEZ ([id number]) [facility] ([facility]) [address] [place] [address] 57385 Immature granulocytes/100 WBC (Bld) 0.3 % Normal 0.0-0.9 [facility] Comment on above: Result Comment: Debra ture Granulocyte Count (IG) includes promyelocytes, myelocytes and metamyelocytes but does not include bands. Percent differential counts (%) should be interpreted in the context of the absolute cell counts (cells/UL). Performed By: #### 5 7021-8 #### ISABEL MENDEZ ([id number]) [facility] ([facility]) [address] [place] [address] 47857 Lymphocytes (Bld) [#/Vol] 2.00 x10*3/uL Normal 1.20-4.80 [facility] Comment on above: Performed By: #### 5 7021-8 #### ISABEL MENDEZ ([id number]) [facility] ([facility]) [address] [place] [address] 18416 Lymphocytes/100 WBC (Bld) 30.4 % Normal 13.0-44.0 [facility] Comment on above: Performed By: #### 5 70-8 #### ISABEL MENDEZ ([id number]) [facility] ([facility]) [address] [place] [address] 10318 MCH (RBC) [Entitic mass] 28.9 pg Normal 26.0-34.0 [facility] Comment on above: Performed By: #### 5 7021-8 #### ISABEL MENDEZ ([id number]) [facility] ([facility]) [address] [place] [address] 73890 MCHC (RBC) [Mass/Vol] 33.3 g/dL Normal 32.0-36.0 [facility] Comment on above: Performed By: #### 5 7021-8 #### ISABEL MENDEZ ([id number]) [facility] ([facility]) [address] [place] [address] 46661 MCV (RBC) [Entitic vol] 87 fL Normal 80-100 [facility] Comment on above: Performed By: #### 5 7021-8 #### ISABEL MENDEZ ([id number]) [facility] ([facility]) [address] [place] [address] 13467 Monocytes (Bld) [#/Vol] 0.35 x10*3/uL Normal 0.10-1.00 [facility] Comment on above: Performed By: #### 5 7021-8 #### ISABEL MENDEZ ([id number]) [facility] ([facility]) [address] [place] [address] 00633 Monocytes/100 WBC (Bld) 5.3 % Normal 2.0-10.0 [facility] Comment on above: Performed By: #### 7021-8 #### ISABEL MENDEZ ([id number]) [facility] ([facility]) [address] [place] [address] 13780 Neutrophils (Bld) [#/Vol] 3.87 x10*3/uL Normal 1.20-7.70 [facility] Comment on above: Result Comment: Perc ent differential counts (%) should be interpreted in the context of the absolute cell counts (cells/uL). Performed By: #### 5 7021-8 #### ISABEL MENDEZ ([id number]) [facility] ([facility]) [address] [place] [address] 03526 Neutrophils/100 WBC (Bld) 59.0 % Normal 40.0-80.0 [facility] Comment on above: Performed By: #### 5 7021-8 #### ISABEL MENDEZ ([id number]) [facility] ([facility]) [address] [place] [address] 89695 Nucleated RBC/100 WBC (Bld) [Ratio] 0.0 /100 WBCs Normal 0.0-0.0 [facility] Comment on above: Performed By: #### 5 7021-8 #### ISABEL MENDEZ ([id number]) [facility] ([facility]) [address] [place] [address] 35116 Platelets (Bld) [#/Vol] 272 x10*3/uL Normal 150-450 [facility] Comment on above: Performed By: #### 5 7021-8 #### ISABEL MENDEZ ([id number]) [facility] ([facility]) [address] [place] [address] 62668 RBC (Bld) [#/Vol] 5.30 x10*6/uL Normal 4.50-5.90 [facility] Comment on above: Performed By: #### 5 7021-8 #### ISABEL MENDEZ ([id number]) [facility] ([facility]) [address] [place] [address] 39819 WBC (Bld) [#/Vol] 6.6 x10*3/uL Normal 4.4-11.3 [facility] Comment on above: Performed By: #### 5 7021-8 #### ISABEL MENDEZ ([id number]) [facility] ([facility]) [address] [place] [address] Cholesterol in LDL Direct as say [Mass/Vol]on 12-22-2023 Cholesterol in LDL [Mass/Vol] 110 mg/dL Normal 0-129 [facility] Comment on above: Order Comment: Tustin feliica levels of LDL cholesterol are recognized as a cleveland factor in the development of atherosclerosis and CHD. The direct LDL cholesterol test can be used to assess cardiovascular risk and monitor therapy as a follow up to a lipid profile when triglycerides are significantly elevated. Performed By: #### 1 8262-6 #### TAO Loza ([id number]) [facility] ([facility]) [address] [place] [address] Comprehensive metabolic 2000 panelon 12-22-2023 Albumin BCP dye [Mass/Vol] 3.9 g/dL Normal 3.4-5.0 [facility] Comment on above: Performed By: #### 2 4323-8 #### ISABEL MENDEZ ([id number]) [facility] ([facility]) [address] [place] [address] 23075 ALP [Catalytic activity/Vol] 56 U/L Normal 33-120 [facility] Comment on above: Performed By: #### 2 4323-8 #### ISABEL MENDEZ ([id number]) [facility] ([facility]) [address] [place] [address] 65362 ALT With P-5'-P [Catalytic activity/Vol] 22 U/L Normal 10-52 [facility] Comment on above: Result Comment: Ofelia ents treated with Sulfasalazine may generate falsely decreased results for ALT. Performed By: #### 2 4323-8 #### ISABEL MENDEZ ([id number]) [facility] ([facility]) [employer] [place] [address] Anion gap [Moles/Vol] 11 mmol/L Normal 10-20 [facility] Comment on above: Performed By: #### 2 4323-8 #### ISABEL MENDEZ ([id number]) [facility] ([facility]) [employer] [place] [address] AST With P-5'-P [Catalytic activity/Vol] 14 U/L Normal 9-39 [facility] Comment on above: Performed By: #### 2 4323-8 #### ISABEL MENDEZ ([id number]) [facility] ([facility]) [address] [place] [address] Bilirubin [Mass/Vol] 0.7 mg/dL Normal 0.0-1.2 [facility] Comment on above: Performed By: #### 2 4323-8 #### ISABEL MENDEZ ([id number]) [facility] ([facility]) [address] [place] [address]65 Calcium [Mass/Vol] 9.1 mg/dL Normal 8.6-10.3 [facility] Comment on above: Performed By: #### 2 4323-8 #### ISABEL MENDEZ ([id number]) [facility] ([facility]) [address] [place] [address] 59232 Chloride [Moles/Vol] 103 mmol/L Normal 98-107 [facility] Comment on above: Performed By: #### 2 4323-8 #### ISABEL MENDEZ ([id number]) [facility] ([facility]) [address] [place] [address] CO2 [Moles/Vol] 26 mmol/L Normal 21-[address] [facility] Comment on above: Performed By: #### 2 4323-8 #### ISABEL MENDEZ ([id number]) [facility] ([facility]) [address] [place] [address] 85606 Creatinine [Mass/Vol] 0.87 mg/dL Normal 0.50-1.30 [facility] Comment on above: Performed By: #### 2 4323-8 #### ISABEL MENDEZ ([id number]) [facility] ([facility]) [address] [place] [address] 22336 GFR/1.73 sq M.predicted MDRD (S/P/Bld) [Vol rate/Area] mL/min/{1.73_m2} Normal >60 [facility] Comment on above: Result Comment: Calc ulations of estimated GFR are performed using the 2021 CKD-EPI Study Refit equation without the race variable for the IDMS-Traceable creatinine methods. https://jasn.asnjournals.org/content//ASN.50859358 88 Performed By: #### 2 4323-8 #### ISABEL MENDEZ ([id number]) [facility] ([facility]) [address] [place] [address] 86671 Glucose [Mass/Vol] 217 mg/dL High 74-99 [facility] Comment on above: Performed By: #### 2 4323-8 #### ISABEL MENDEZ ([id number]) [facility] ([facility]) [address] [place] [address] 8[address] Potassium [Moles/Vol] 3.8 mmol/L Normal 3.5-5.3 [facility] Comment on above: Performed By: #### 2 3-8 #### ISABEL MENDEZ ([id number]) [facility] ([facility]) [address] [place] [address] 07226 Protein [Mass/Vol] 7.1 g/dL Normal 6.4-8.2 [facility] Comment on above: Performed By: #### 2 4323-8 #### ISABEL MENDEZ ([id number]) [facility] ([facility]) [address] [place] [address] 97787 Sodium [Moles/Vol] 136 mmol/L Normal 136-145 [facility] Comment on above: Performed By: #### 2 4323-8 #### ISABEL MENDEZ ([id number]) [facility] ([facility]) [address] [place] [address] 57504 Urea nitrogen [Mass/Vol] 15 mg/dL Normal 6-23 [facility] Comment on above: Performed By: #### 2 4323-8 #### ISABEL MENDEZ ([id number]) [facility] ([facility]) [address] [place] [address] 10070 HbA1c (Bld) [Mass fraction]o n 12-22-2023 Average glucose Estimated from glycated hemoglobin (Bld) [Mass/Vol] 278 mg/dL Normal Not Established [facility] Comment on above: Order Comment: Diagn osis of Diabetes-Adults Non-Diabetic: < or = 5.6% Increased risk for developing diabetes: 5.7-6.4% Diagnostic of diabetes: > or = 6.5% Monitoring of Diabetes Age (y)....................... Therapeutic Goal (%) Adults: >18.........................<7.0 Pediatrics: 13-18...................<7.5 Pediatrics: 7-12....................<8.0 Pediatrics: 0-6..................... 7.5-8.5 [place] [employer]. Diabetes Care 33(S1), Jul 2009 Performed By: #### 4 548-4 #### HALL ANDREA ([id number]) [facility] ([facility]) [address] [place] [address] Hemoglobin A1c/Hemoglobin.to yamileth 12-22-2023 HbA1c (Bld) [Mass fraction] 11.3 % High see below [facility] Comment on above: Order Comment: Diagn osis of Diabetes-Adults Non-Diabetic: < or = 5.6% Increased risk for developing diabetes: 5.7-6.4% Diagnostic of diabetes: > or = 6.5% Monitoring of Diabetes Age (y)....................... Therapeutic Goal (%) Adults: >18.........................<7.0 Pediatrics: 13-18...................<7.5 Pediatrics: 7-12....................<8.0 Pediatrics: 0-6..................... 7.5-8.5 [place] [employer]. Diabetes Care 33(S1), Jul 2009 Performed By: #### 4 548-4 #### ISABEL MENDEZ ([id number]) [facility] ([facility]) [employer] [place] [address] Lipid 1996 panelon 4 Cholesterol [Mass/Vol] 155 mg/dL Normal 0-199 [facility] Comment on above: Result Comment: Age Desirable Borderline High High 0-19 Y 0 - 169 170 - 199 >/= 200 20-24 Y 0 - 189 190 - 224 >/= 225 >24 Y 0 - 199 200 - 239 >/= 240 All ranges are based on fasting samples. Specific therapeutic targets will vary based on patient-specific cardiac risk. Pediatric guidelines reference:Pediatrics 2011, 128(S5).Adult guidelines reference: NCEP ATPIII Guidelines,RENZO 2001, 258:2486-97 Venipuncture immediately after or during the administration of Metamizole may lead to falsely low results. Testing should be performed immediately prior to Metamizole dosing. Performed By: #### 2 4331-1 #### ISABEL MENDEZ ([id number]) [facility] ([facility]) [employer] [place] [address] Cholesterol in HDL [Mass/Vol] 32.0 mg/dL Normal [facility] Comment on above: Result Comment: Age Very Low Low Normal High 0-19 Y < 35 < 40 40-45 ---- 20-24 Y ---- < 40 >45 ---- >24 Y ---- < 40 40-60 >60 Performed By: #### 2 4331-1 #### ISABEL MENDEZ ([id number]) [facility] ([facility]) [employer] [place] [address] Cholesterol in LDL [Mass/Vol] 86 mg/dL Normal <=99 [facility] Comment on above: Result Comment: Near Borderline AGE Desirable Optimal High High Very High 0-19 Y 0 - 109 --- 110-129 >/= 130 ---- 20-24 Y 0 - 119 --- 120-159 >/= 160 ---- >24 Y 0 - 99 100-129 130-159 160-189 >/=190 Performed By: #### 2 4331-1 #### ISABEL MENDEZ ([id number]) [facility] ([facility]) [address] [place] [address] 28651 Cholesterol in VLDL [Mass/Vol] 37 mg/dL Normal 0-40 [facility] Comment on above: Performed By: #### 2 4331-1 #### ISABEL MENDEZ ([id number]) [facility] ([facility]) [address] [place] [address] 03847 CHOLESTEROL/HDL RATIO 4.8 Normal [facility] Comment on above: Result Comment: Ref Values Desirable < 3.4 High Risk > 5.0 Performed By: #### 2 4331-1 #### ISABEL MENDEZ ([id number]) [facility] ([facility]) [address] [place] [address] 51759 NON HDL CHOLESTEROL 123 mg/dL Normal 0-149 [facility] Comment on above: Result Comment: Age Desirable Borderline High High Very High 0-19 Y 0 - 119 120 - 144 >/= 145 >/= 160 20-24 Y 0 - 149 150 - 189 >/= 190 ---- >24 Y 30 mg/dL above LDL Cholesterol goal Performed By: #### 2 4331-1 #### ISABEL MENDEZ ([id number]) [facility] ([facility]) [address] [place] [address] 50689 Triglyceride [Mass/Vol] 186 mg/dL High 0-149 [facility] Comment on above: Result Comment: Age Desirable Borderline High High Very High 0 D-90 D 19 - 174 ---- ---- ---- 91 D- 9 Y 0 - 74 75 - 99 >/= 100 ---- 10-19 Y 0 - 89 90 - 129 >/= 130 ---- 20-24 Y 0 - 114 115 - 149 >/= 150 ---- >24 Y 0 - 149 150 - 199 200- 499 >/= 500 Venipuncture immediately after or during the administration of Metamizole may lead to falsely low results. Testing should be performed immediately prior to Metamizole dosing. Performed By: #### 2 4331-1 #### ISABEL MENDEZ ([id number]) [facility] ([facility]) [address] [place] [id number] [facility] CNPN Telephone (FAMPWS) PHI GONZALEZ ([id number]) 1965 M Date Time Provider Department 12/13/23 JUAN R OSULLIVAN During your visit today, we recorded the following information about you: Carole Greer 12/13/2023 11:53 AM Signed Derik is calling Juan R Osullivan MD today with concern regarding CPAP order. Patient states that when he was in office a CPAP machine order was to be faxed to [facility]. [facility] [place] not yet received the order. Patient asking for the order to be faxed to [facility] today. Patient has been identified by name and birthdate. Duration of symptoms: N/A Person calling: self Call patient at: on cell [phone] (home) [phone] (cell) Was an appointment scheduled: No Closing statement: Results or non-symptom based questions: Thank you for calling [facility], your call will be returned within the next business day. Trevor Tidwell LPN 12/13/2023 1:24 PM Signed Order, demographics and office note faxed to [facility] at [phone]. Patient telephoned and notified. Will follow up with [facility]. Patient will call office back if has any further issues. Trevor Hill LPN Allergies As of Date: 12/13/2023 Noted Allergy Reaction LOSARTAN 05/27/2022 8 - GI Upset SEASONAL ALLERGIES 05/05/2017 14 - Other: See Comments Comments: Watery eyes, cough, and stuffy nose Date Reviewed: 12/05/2023 Reviewed by: Trevor Hill LPN - Fully Assessed Reason for Visit: CPAP order [Other] Prescriptions as of 12/13/2023 - lisinopril (ZESTRIL) 10 mg tablet Take 1 tablet by mouth once daily. - atorvastatin (LIPITOR) 20 mg tablet Take 1 tablet by mouth daily at bedtime. For cholesterol. - Tadalafil (CIALIS) 10 mg tablet Take 1 tablet by mouth as needed (Prior to sexual intercourse). - CPAP Initiate Auto PAP @ 5-20 cm of water with humidification. Mask (per patient preference) optional chin strap (if indicated) , filters, tubing, humidifier and lifetime supplies. - cetirizine-pseudoeph edrine (ZYRTEC-D) 5-120 mg per tablet Take 1 tablet by mouth once daily. Problem List As Of Date 12/13/2023 Noted Resolved Morbid obesity with BMI of 40.0-44.9, adult (HC* GERD (gastroesophageal reflux disease) [K21.9] Seasonal allergies [J30.2] Snoring [R06.83] Hyperlipidemia [E78.5] Prediabetes [R73.03] SILVANO (obstructive sleep apnea) [G47.33] Erectile dysfunction [N52.9] 10/17/2017 Type 2 diabetes mellitus without complication, *03/09/2021 Hidradenitis suppurativa [L73.2] 07/22/2021 Essential hypertension [I10] 05/27/2022 Encounter Status:Closed by TREVOR HILL on 12/13/23 [facility] 12-05-2023 [facility] Office Visit ([facility]) PHI GONZALEZ ([id number]) 1965 M Date Time Provider Department 12/05/23 2:40 PM INDIA TAVARES During your visit today, we recorded the following information about you: Pulse Respiration Blood pressure Weight 85/minute 18/minute 128/86 119.9 kg India Tavares APRN.CNP 12/05/2023 4:13 PM Signed 12/05/2023 Patient presents with: Yearly Exam SUBJECTIVE: This is a 58 year old that is here today for Above Complaints. Patient last seen in office on 05/27/2022. Has not taken any of his medications since that time Reports metformin made him have diarrhea. He also tried the extended release which did the same thing. Not checking blood sugars. Admits to polyuria and polydipsia. Inquiring about Jardiance - has a friend on it BP medication made him feel nervous so he quit taking. Does not check BP at home SILVANO: does not use CPAP- reports he has tried for years and he cannot fall asleep with something on his face. Reports Dr. Osullivan wrote order for different mas by he never went to try. PAST MEDICAL HISTORY Diagnosis Date Coronary artery disease Erectile dysfunction Essential hypertension GERD (gastroesophageal reflux disease) Hyperlipidemia Morbid obesity with BMI of 40.0-44.9, adult ([facility]) SILVANO (obstructive sleep apnea) severe Seasonal allergies Snoring Type 2 diabetes mellitus without complication, without long-term current use of insulin ([facility]) 03/09/2021 ALLERGIES Losartan and Seasonal Allergies MEDICATIONS Current Outpatient Medications Medication Sig Tadalafil (CIALIS) 10 mg tablet Take 1 tablet by mouth as needed (Prior to sexual intercourse). atorvastatin (LIPITOR) 20 mg tablet Take 1 tablet by mouth daily at bedtime. For cholesterol. metFORMIN ER (GLUCOPHAGE XR) 500 mg 24 hr tablet Take 2 tablets by mouth twice daily with meals. lisinopril (ZESTRIL, PRINIVIL) 20 mg tablet Take 1 tablet by mouth once daily. CPAP Initiate Auto PAP @ 5-20 cm of water with humidification. Mask (per patient preference) optional chin strap (if indicated) , filters, tubing, humidifier and lifetime supplies. (Patient not taking: Reported on 12/05/2023) cetirizine-pseudoeph edrine (ZYRTEC-D) 5-120 mg per tablet Take 1 tablet by mouth once daily. No current facility-administere d medications for this visit. Medications and allergies reviewed by this provider. SOCIAL HISTORY Social History Tobacco Use Smoking status: Never Smokeless tobacco: Never Substance Use Topics Alcohol use: Yes Comment: Occasionally twice per month Drug use: No REVIEW OF SYSTEMS GENERAL: No weight loss, malaise or fevers HEENT: Negative for frequent or significant headaches, No changes in hearing or vision, no nose bleeds or other nasal problems NECK: Negative for lumps, goiter, pain and significant neck swelling RESPIRATORY: Negative for cough, hemoptysis, wheezing, COPD, dyspnea or shortness of breath CARDIOVASCULAR: Negative for chest pain, leg swelling, hypertension, CHF or palpitations GI: No nausea, vomiting, or diarrhea : No history of dysuria, frequency or incontinence MUSCULOSKELETAL: Negative for joint pain or swelling, back pain or muscle pain SKIN: Negative for lesions, rash, and itching PSYCH: Negative for sleep disturbance, mood disorder and recent psychosocial stressors HEMATOLOGY/LYMPHOLOG Y: Negative for prolonged bleeding, bruising easily or swollen nodes ENDOCRINE: Negative for cold or heat intolerance, and goiter NEURO: No history of headaches, syncope, paralysis, seizures or tremors All other reviewed and negative other than HPI. OBJECTIVE: BP 128/86 Pulse 85 Resp 18 Wt 119.9 kg (264 lb 6.4 oz) SpO2 96% BMI 39.84 kg/m? . Vital signs reviewed by this provider. APPEARANCE Well appearing, alert, in no acute distress, well-hydrated, well nourished. EYES conjunctiva and sclera normal. NECK Supple, no adenopathy; thyroid symmetric, normal size, no bruits HEART RRR with normal S1 and S2, no murmurs, no gallops, no JVD appreciated LUNG clear to auscultation. No wheezes, rhonchi or rales EXTREMITIES Extremities normal, No deformities, No skin discoloration, No edema, and Normal pulses bilaterally. SKIN Skin color, texture, turgor normal, no suspicious rashes or lesions to exposed skin DM foot exam: shoes and socks removed, No deformities, ulcers, calluses, normal distal pulses, sensitive to 10 gm monofilament, and left great notable for Crumbly, Deformed, Hypertrophic, or Yellowish Pneumococcal Vaccine(1 of 2 - PCV) Never done Dilated Retinal Exam Never done BP Controlled (<130/80) Never done Shingrix Vaccine(1 of 2) Never done Urine Albumin:Creatinine Ratio due on 11/04/2022 HbA1C due on 11/24/2022 Covid-19 Vaccine(2022-24 season) Never done LDL Cholesterol due on 05/27/2023 Behavioral Health Screening Never done I (more content not included)... Normal [facility] CBC panel Auto (Bld)on 05-27 Erythrocyte distribution width (RBC) [Ratio] 12.2 % 11.5 - 15.0 % [facility] Hematocrit (Bld) [Volume fraction] 50.3 % 39.0 - 51.0 % [facility] Hemoglobin (Bld) [Mass/Vol] 16.8 g/dL 13.0 - 17.0 g/dL [facility] MCH (RBC) [Entitic mass] 29.4 pg 26.0 - 34.0 pg [facility] MCHC (RBC) [Mass/Vol] 33.4 g/dL 30.5 - 36.0 g/dL [facility] MCV (RBC) [Entitic vol] 88.1 fL 80.0 - 100.0 fL [facility] Nucleated RBC (Bld) [#/Vol] <0.01 k/uL [facility] Platelet mean volume (Bld) [Entitic vol] 9.4 fL 9.0 - 12.7 fL [facility] Platelets (Bld) [#/Vol] 274 10*3/uL 150 - 400 k/uL [facility] RBC (Bld) [#/Vol] 5.71 10*6/uL 4.20 - 6.00 m/uL [facility] WBC (Bld) [#/Vol] 10.76 10*3/uL 3.70 - 11 .00 k/uL [facility] Vital Signs Date Time Vital Sign Value Performing Clinician Scar nicoel 03-15-2025 14:14-0400 Body mass index (BMI) [Ratio] 39.03 kg/m2 Ingrid Saravia APRN.CNP Work Phone: [facility] 03-15-2025 14:140400 Body temperature 97.81 [degF] Ingrid Saravia APRN.AIR SURVEILLANCE OPERATOR Work Phone: [facility] 03-15-2025 14:14040 Body weight 117.5 kg Ingrid Saravia APRN.CNP Work Phone: [facility] 03-15-2025 14:140400 Diastolic blood pressure 100 mm[Hg] Ingrid Saravia APRN.CNP Work Phone: [facility] 03-15-2025 14:14-0400 Heart rate 79 /min Ingrid Saravia PATIENT SERVICE TECHNICIAN PST.AIR SURVEILLANCE OPERATOR Work Phone: [facility] 03-15-2025 14:14-0400 Respiratory rate 18 /min Ingrid Saravia PATIENT SERVICE TECHNICIAN PST.AIR SURVEILLANCE OPERATOR Work Phone: [facility] 03-15-2025 14:14-0400 SaO2% (BldA) [Mass fraction] 99 % Ingrid Saravia PATIENT SERVICE TECHNICIAN PST.AIR SURVEILLANCE OPERATOR Work Phone: [facility] 03-15-2025 14:14-0400 Systolic blood pressure 151 mm[Hg] Ingrid Saravia PATIENT SERVICE TECHNICIAN PST.AIR SURVEILLANCE OPERATOR Work Phone: [facility] 12-05-2023 14:47-0400 Body mass index (BMI) [Ratio] 39.84 kg/m2 India Podlogar PATIENT SERVICE TECHNICIAN PST.AIR SURVEILLANCE OPERATOR Work Phone: [facility] 12-05-2023 14:47-0400 Body weight 119.93 kg India Podlogar PATIENT SERVICE TECHNICIAN PST.AIR SURVEILLANCE OPERATOR Work Phone: [facility] 12-05-2023 14:47-0400 Diastolic blood pressure 86 mm[Hg] India Podlogar PATIENT SERVICE TECHNICIAN PST.AIR SURVEILLANCE OPERATOR Work Phone: [facility] 12-05-2023 14:47-0400 Heart rate 85 /min India Podlogar PATIENT SERVICE TECHNICIAN PST.AIR SURVEILLANCE OPERATOR Work Phone: [facility] 12-05-2023 14:47-0400 Respiratory rate 18 /min India Podlogar PATIENT SERVICE TECHNICIAN PST.AIR SURVEILLANCE OPERATOR Work Phone: [facility] 12-05-2023 14:47-0400 SaO2% (BldA) [Mass fraction] 96 % India Podlogar PATIENT SERVICE TECHNICIAN PST.AIR SURVEILLANCE OPERATOR Work Phone: [facility] 12-05-2023 14:47-0400 Systolic blood pressure 128 mm[Hg] India Podlogar PATIENT SERVICE TECHNICIAN PST.AIR SURVEILLANCE OPERATOR Work Phone: [facility] 05-27-2022 13:23-0400 Body height 173.5 cm Juan R Osullivan MD Work Phone: [facility] 05-27-2022 13:23-0400 Body weight 125.47 kg Juan R Osullivan MD Work Phone: [facility] 05-27-2022 13:23-0400 Diastolic blood pressure 78 mm[Hg] Juan R Osullivan MD Work Phone: [facility] 05-27-2022 13:23-0400 Heart rate 89 /min Juan R Osullivan MD Work Phone: [facility] 05-27-2022 13:23-0400 Respiratory rate 16 /min Juan R Osullivan MD Work Phone: [facility] 05-27-2022 13:23-0400 SaO2% (BldA) [Mass fraction] 96 % Juan R Osullivan MD Work Phone: [facility] 05-27-2022 13:23-0400 Systolic blood pressure 150 mm[Hg] Juan R Osullivan MD Work Phone: [facility] 11-04-2021 13:50-0400 Diastolic blood pressure 94 mm[Hg] India Podlogar PATIENT SERVICE TECHNICIAN PST.AIR SURVEILLANCE OPERATOR Work Phone: [facility] 11-04-2021 13:50-0400 Heart rate 88 /min India Podlogar PATIENT SERVICE TECHNICIAN PST.AIR SURVEILLANCE OPERATOR Work Phone: [facility] 11-04-2021 13:50-0400 Systolic blood pressure 149 mm[Hg] India Podlogar PATIENT SERVICE TECHNICIAN PST.AIR SURVEILLANCE OPERATOR Work Phone: [facility] 11-04-2021 13:12-0400 Body weight 121.66 kg India Podlogar PATIENT SERVICE TECHNICIAN PST.AIR SURVEILLANCE OPERATOR Work Phone: [facility] 11-04-2021 13:12-0400 Respiratory rate 18 /min India Podlogar PATIENT SERVICE TECHNICIAN PST.AIR SURVEILLANCE OPERATOR Work Phone: [facility] 11-04-2021 13:12-0400 SaO2% (BldA) [Mass fraction] 96 % India Podlogar PATIENT SERVICE TECHNICIAN PST.AIR SURVEILLANCE OPERATOR Work Phone: [facility] Encounters Encounter Date Encounter Type Care Provider Facility Start: 03-15-2025 End: 03-15-2025 Patient encounter procedure Ingrid Saravia PATIENT SERVICE TECHNICIAN PST.AIR SURVEILLANCE OPERATOR Work Phone: [facility] Comment on above: Acute constipation ( Primary Dx); Essential (primary) hypertension; Gastro-esophageal reflux disease without esophagitis; Type 2 diabetes mellitus without complication, unspecified whether predatory animal exterminator insulin use (HCC) Start: 03-15-2025 End: 03-15-2025 Subsequent hospital visit by physician Xr [facility] Work Phone: Radiology Comment on above: Acute constipation [ K59.00] Start: 10-18-2024 End: 10-18-2024 Nursing evaluation of patient and report Daniele Mckeon RN Work Phone: Diabetic Education [facility] Comment on above: Type 2 diabetes jayme itus with hyperglycemia, unspecified whether predatory animal exterminator insulin use (HCC) Start: 10-18-2024 End: 10-18-2024 ambulatory Daniele Mckeon RN Work Phone: Diabetic Education [facility] Comment on above: contact information Start: 10-18-2024 End: 10-18-2024 E-mail encounter from caregiver Daniele Mckeon RN Work Phone: Diabetic Education [facility] Start: 09-19-2024 End: 09-20-2024 Refill Juan R Osullivan MD Work Phone: [facility] Comment on above: Refill Request Start: 08-29-2024 End: 08-29-2024 Telephone encounter Juan R Osullivan MD Work Phone: [facility] Comment on above: requesting refill th at is Start: 06-27-2024 End: 06-27-2024 Telephone encounter Juan R Osullivan MD Work Phone: [facility] Comment on above: Orders Start: 05-28-2024 End: 05-29-2024 Refill Juan R Osullivan MD Work Phone: [facility] Comment on above: Refill Request Start: 05-07-2024 End: 05-07-2024 Refill Juan R Osullivan MD Work Phone: [facility] Comment on above: Refill Request Start: 04-17-2024 End: 04-17-2024 Refill Juan R Osullivan MD Work Phone: [facility] Comment on above: Refill Request Start: 03-06-2024 End: 03-12-2024 Patient Msg [facility] Provider [facility] Comment on above: Need lab orders Lab Orders Start: 03-04-2024 ambulatory Self Referred Facility: [facility] Start: 02-22-2024 End: 02-22-2024 ambulatory Self Referred Facility:[facility] Start: 02-14-2024 E-mail encounter virginia baumann caregiver Charisse Wendy [facility] Work Phone: [facility] Start: 02-14-2024 Patient encounter procedure Charissehernandez Nguyen [facility] Work Phone: [facility] Comment on above: Primary Care Pharmac ist Visit Start: 02-02-2024 Telephone encounter Charissehernandez Nguyen [facility] Work Phone: [facility] Comment on above: Missed Appointment ( Pharmacy Visit Rescheduling) Start: 01-27-2024 Telephone encounter India cast PATIENT SERVICE TECHNICIAN PST.AIR SURVEILLANCE OPERATOR Work Phone: [facility] Comment on above: Medication Problem ( Patient states that the insulin pen needles were not sent to the pharmacy. Please send script over to his pharmacy ) Start: 12-26-2023 Telephone encounter Pharmacist [facility] Comment on above: Appointment (Primary Care Pharmacy) Start: 12-22-2023 End: 12-22-2023 ambulatory [facility] Start: 12-13-2023 Telephone encounter Pepe Osullivan MD Work Phone: [facility] Comment on above: CPAP order Start: 12-05-2023 End: 12-05-2023 ambulatory INDIA PODLOGAR Facility:[facility] Start: 12-05-2023 End: 12-05-2023 Patient encounter procedure India Tavares APRN.AIR SURVEILLANCE OPERATOR Work Phone: [facility] Comment on above: Annual physical exam (Primary Dx); Type 2 diabetes mellitus without complication, without long-term current use of insulin (HCC); Elevated triglycerides with high cholesterol; Essential hypertension; Hyperlipidemia, mixed; SILVANO (obstructive sleep apnea); Depression screening Start: 04-12-2023 End: 04-12-2023 ambulatory India Tavares APRN.AIR SURVEILLANCE OPERATOR Work Phone: [facility] Comment on above: Irritant contact ashley matitis, unspecified trigger (Primary Dx) Start: 04-12-2023 End: 04-12-2023 Telemedicine consultation with patient India Tavares APRN.AIR SURVEILLANCE OPERATOR Work Phone: [facility] Start: 06-22-2022 Refill Juan R Osullivan MD Work Phone: [facility] Comment on above: Refill Request Start: 06-01-2022 Telephone encounter Pepe Osullivan MD Work Phone: [facility] Comment on above: Erroneous encounter- disregard Start: 05-27-2022 End: 05-27-2022 Patient encounter procedure Juan R Osullivan MD Work Phone: [facility] Comment on above: Annual physical exam (Primary Dx); Essential hypertension; Type 2 diabetes mellitus without complication, without long-term current use of insulin (HCC); SILVANO (obstructive sleep apnea); Hydrocystoma; Gastroesophageal reflux disease, unspecified whether esophagitis present; Morbid obesity with BMI of 40.0-44.9, adult (HCC); Pure hypercholesterolemia; Erectile dysfunction, unspecified erectile dysfunction type; Seasonal allergies; Need for influenza vaccination; Screening for HIV (human immunodeficiency virus); Screening for prostate cancer Start: 11-06-2021 Telephone encounter India cast APRN.AIR SURVEILLANCE OPERATOR Work Phone: [facility] Comment on above: Results Start: 11-04-2021 End: 11-04-2021 Patient encounter procedure India Tavares APRN.AIR SURVEILLANCE OPERATOR Work Phone: [facility] Comment on above: Type 2 diabetes jayme itus without complication, without long- term current use of insulin (HCC) (Primary Dx); Hypertension, essential; SILVANO (obstructive sleep apnea) Procedures Date Procedure Procedure Detail Performing Clinician Start: 03-15-2025 Radiologic exam abdo men 2 views Ingrid Saravia PATIENT SERVICE TECHNICIAN PST.AIR SURVEILLANCE OPERATOR Work Phone: Start: 12-05-2023 Adult depression scr eening assessment [facility] Provider Start: 05-27-2022 INFLUENZA VACCINE QUADRIVALENT 6 MO - 64 YRS IM Juan R Osullivan MD Work Phone: Start: 03-06-2021 Adult depression scr eening assessment India Tavares PATIENT SERVICE TECHNICIAN PST.AIR SURVEILLANCE OPERATOR Work Phone: Start: 09-22-2017 Colonoscopy India cast PATIENT SERVICE TECHNICIAN PST.AIR SURVEILLANCE OPERATOR Work Phone: Plan of Treatment Date Care Activity Detail Author Start: 09-23-2027 Colonoscopy COLONOSCOPY [facility] Start: 09-23-2027 COLORECTAL CANCER SCREENING COLORECTAL CANCER SCREENING [facility] Start: 09-23-2027 Screening for malignant neoplasm of colon [facility] Start: 05-27-2027 PROSTATE CANCER SCREENING DISCUSSION PROSTATE CANCER SCREENING DISCUSSION [facility] Start: 05-27-2027 Prostate specific antigen measurement Prostate Cancer Screening Discussion [facility] Start: 05-05-2027 Urine microalbumin profile [facility] Start: 03-25-2025 Influenza vaccination Influenza Vaccine (#1) [facility] Start: 03-19-2025 End: 03-19-2025 Patient encounter procedure 03/19/2025 7:20 AM EDT Office Visit [facility] [address] [place] [id number] Juan R Osullivan MD [address] [place] [id number] ov to discuss recommendations by DM educator and routine [facility] Comment on above: ov to discuss recommendations by DM educ ator and routine Start: 12-21-2024 Hepatitis B screening Urine Albumin:Creatinine Ratio [facility] Start: 12-21-2024 Hepatitis B surface antibody level LDL Cholesterol [facility] Start: 12-04-2024 Annual PCP Team Chronic Disease Visit Annual PCP Team Chronic Disease Visit [facility] Start: 12-04-2024 Anxiety Screening Anxiety Screening [facility] Start: 12-04-2024 Depression Screening Depression Screening [facility] Start: 12-04-2024 Diabetic foot examination Diabetic Foot Exam [facility] Start: 11-22-2024 End: 11-22-2024 ambulatory 11/22/2024 9:00 AM EDT [facility] Diabetic Education [facility] [id number] [place] [address] [place] [address] uncontrolled diabetes Diabetic [facility] Comment on above: uncontrolled diabetes Start: 10-26-2024 End: 10-26-2024 Nursing evaluation of patient and report 10/26/2024 3:00 PM EDT Nurse Visit Diabetic Education [facility] [address] [place] [address] [place] [address] [place] [address] follow up Diabetic Education [facility] Comment on above: follow up Start: 10-24-2024 End: 10-24-2024 Patient encounter procedure 10/24/2024 3:20 PM EDT Office Visit Family [facility] [address] [place] [address] India Tavares, PATIENT SERVICE TECHNICIAN PST.AIR SURVEILLANCE OPERATOR [address] [place] [address] past due 3 month follow up Family [facility] Comment on above: past due 3 month follow up Start: 10-01-2024 End: 10-01-2024 Patient encounter procedure 10/01/2024 1:40 PM EDT Office Visit Family [facility] M[facility] [address] [facility] [place] [address] India Tavares, PATIENT SERVICE TECHNICIAN PST.AIR SURVEILLANCE OPERATOR [address] [place] [address] past due 3 month follow up Family [facility]the[facility] Comment on above: past due 3 month follow up Start: 09-03-2024 End: 09-03-2024 Patient encounter procedure 09/03/2024 2:40 PM EST Office Visit Family [facility] [address] [facility] [place] [address] India Tavares APRN.AIR SURVEILLANCE OPERATOR [address] [facility] [place] [address] past due 3 month follow up Family [facility] Comment on above: past due 3 month follow up Start: 08-30-2024 End: 08-30-2024 ambulatory 08/30/2024 7:45 AM EST Results Only [facility] [address] [place] [address] [facility] Start: 07-10-2024 End: 07-10-2024 Nursing evaluation of patient and report 07/10/2024 3:00 PM EST Nurse Visit Endocrinology [address] [place] [address] Benitez Patricio, RN [address] [address] Controlling my blood sugar and working with meds Endocrinology Comment on above: Controlling my blood sugar and working w [facility] meds Start: 07-02-2024 End: 07-02-2024 Patient encounter procedure 07/02/2024 7:20 AM EST Office Visit Family Althea [facility] [address] [place] [address] India Tavares APRN.AIR SURVEILLANCE OPERATOR [address] [facility] [place] [address] follow up DM [facility] Comment on above: follow up DM Start: 06-29-2024 End: 06-29-2024 ambulatory 06/29/2024 8:45 AM EST Results Only [facility] [address] [place] [address] [facility] Start: 06-27-2024 End: 09-26-2024 CBC W Auto Differential panel - Blood COMPLETE BLOOD COUNT AND DIFFERENTIAL Lab Routine Type 2 diabetes mellitus with hyperglycemia, unspecified whether jail insulin use (HCC) Expected: 06/27/2024, Expires: 09/26/2024 [facility] Comment on above: Expected: 06/27/2024, Expires: Start: 06-27-2024 End: 09-26-2024 Comprehensive metabolic 2000 panel - Serum or Plasma COMPREHENSIVE METABOLIC PANEL Lab Routine Type 2 diabetes mellitus with hyperglycemia, unspecified whether predatory animal exterminator insulin use (HCC) Expected: 06/27/2024, Expires: 09/26/2024 [facility] Comment on above: Expected: 06/27/2024, Expires: Start: 06-27-2024 End: 09-26-2024 Hemoglobin A1c in Blood HEMOGLOBIN A1C Lab Routine Type 2 diabetes mellitus with hyperglycemia, unspecified whether predatory animal exterminator insulin use (HCC) Expected: 06/27/2024, Expires: 09/26/2024 [facility] Comment on above: Expected: 06/27/2024, Expires: Start: 06-27-2024 End: 09-26-2024 LIPID PANEL, NONFASTING LIPID PANEL, NONFASTING Lab Routine Type 2 diabetes mellitus with hyperglycemia, unspecified whether predatory animal exterminator insulin use (HCC) Expected: 06/27/2024, Expires: 09/26/2024 [facility] Comment on above: Expected: 06/27/2024, Expires: Start: 06-27-2024 End: 09-26-2024 Microalbumin/Creatinine [Mass Ratio] in Urine ALBUMIN/CREATININE RATIO, URINE Lab Routine Type 2 diabetes mellitus with hyperglycemia, unspecified whether jail insulin use (HCC) Expected: 06/27/2024, Expires: 09/26/2024 [facility] Work Phone: Comment on above: Expected: 06/27/2024, Expires: Start: 06-23-2024 Hemoglobin A1c measurement HbA1C [facility] Start: 06-05-2024 End: 06-05-2024 Patient encounter procedure 06/05/2024 8:40 AM EST Office Visit [facility] [address] [place] [address] India Tavares APRN.AIR SURVEILLANCE OPERATOR [address] [facility] [place] [address] follow up DM [facility] Comment on above: follow up DM Start: 05-07-2024 End: 05-07-2024 Patient encounter procedure [facility] [place] Comment on above: General appointment - changes in skin te xture and brown spots on head 3 month follow up Start: 04-12-2024 Annual PCP Team Chronic Disease Visit Annual PCP Team Chronic Disease Visit [facility] Start: 03-25-2024 Covid-19 Vaccine () Covid-19 Vaccine () [facility] Start: 03-25-2024 Influenza vaccination [facility] Start: 03-15-2024 End: 03-15-2024 Patient encounter procedure 03/15/2024 2:20 PM EDT Office Visit Family Althea Moyer [address] [place] [address] Juan R Osullivan MD [address] [place] [address] 3 month follow up Family [facility] Comment on above: 3 month follow up Start: 03-07-2024 End: 03-07-2024 ambulatory 03/07/2024 8:45 AM EDT Results Only [facility] [address] [place] [address] labs [facility] Comment on above: labs Start: 03-06-2024 End: 06-05-2024 CBC W Auto Differential panel - Blood COMPLETE BLOOD COUNT AND DIFFERENTIAL Lab Routine Type 2 diabetes mellitus with hyperglycemia, unspecified whether predatory animal exterminator insulin use (HCC) Expected: 03/06/2024, Expires: 06/05/2024 [facility] Work Phone: Comment on above: Expected: 03/06/2024, Expires: Start: 03-06-2024 End: 06-05-2024 Comprehensive metabolic 2000 panel - Serum or Plasma COMPREHENSIVE METABOLIC PANEL Lab Routine Type 2 diabetes mellitus with hyperglycemia, unspecified whether predatory animal exterminator insulin use (HCC) Expected: 03/06/2024, Expires: 06/05/2024 [facility] Comment on above: Expected: 03/06/2024, Expires: Start: 03-06-2024 End: 06-05-2024 Hemoglobin A1c in Blood HEMOGLOBIN A1C Lab Routine Type 2 diabetes mellitus with hyperglycemia, unspecified whether jail insulin use (HCC) Expected: 03/06/2024, Expires: 06/05/2024 [facility] Comment on above: Expected: 03/06/2024, Expires: Start: 03-06-2024 End: 06-05-2024 LIPID PANEL, NONFASTING LIPID PANEL, NONFASTING Lab Routine Type 2 diabetes mellitus with hyperglycemia, unspecified whether predatory animal exterminator insulin use (HCC) Expected: 03/06/2024, Expires: 06/05/2024 [facility] Comment on above: Expected: 03/06/2024, Expires: Start: 03-06-2024 End: 06-05-2024 Microalbumin/Creatinine [Mass Ratio] in Urine ALBUMIN/CREATININE RATIO, URINE Lab Routine Type 2 diabetes mellitus with hyperglycemia, unspecified whether predatory animal exterminator insulin use (HCC) Expected: 03/06/2024, Expires: 06/05/2024 [facility] Comment on above: Expected: 03/06/2024, Expires: Start: 03-06-2024 End: 03-06-2024 Patient encounter procedure 03/06/2024 10:40 AM EDT Office Visit [facility] [place] [address] [place] [id number] Kenia Manrique MD [address] [place] [address] General appointment - changes in skin texture and brown spots on head [facility] [place] Comment on above: General appointment - changes in skin te xture and brown spots on head Start: 02-02-2024 End: 02-02-2024 Patient encounter procedure 02/02/2024 3:00 PM EDT Office Visit [facility] [address] [place] [address] Charisse Nguyen, [facility] [address] [place], [place] [id number] Type 2 diabetes mellitus with hyperglycemia, unspecified whether jail insulin use (HCC) [E11.65] [facility] Comment on above: Type 2 diabetes mellitus with hyperglyce olman, unspecified whether predatory animal exterminator insulin use (HCC) [E11.65] Start: 2024 RSV Vaccine (1 - 1-dose 60+ series) RSV Vaccine (1 - 1-dose 60+ series) [facility] Start: 2024 RSV Vaccine (1 - Risk 60-74 years 1-dose series) RSV Vaccine (1 - Risk 60-74 years 1-dose series) [facility] Start: 12-05-2023 End: 03-05-2024 CBC panel - Blood by Automated count COMPLETE BLOOD COUNT Lab Routine Essential hypertension Expected: 12/05/2023, Expires: 03/05/2024 [facility] Comment on above: Expected: 12/05/2023, Expires: Start: 12-05-2023 End: 03-05-2024 Cholesterol in LDL [Mass/volume] in Serum or Plasma LDL CHOLESTEROL DIR Lab Routine Elevated triglycerides with high cholesterol Expected: 12/05/2023, Expires: 03/05/2024 [facility] Comment on above: Expected: 12/05/2023, Expires: Start: 12-05-2023 End: 03-05-2024 Comprehensive metabolic 2000 panel - Serum or Plasma COMPREHENSIVE METABOLIC PANEL Lab Routine Essential hypertension Expected: 12/05/2023, Expires: 03/05/2024 [facility] Comment on above: Expected: 12/05/2023, Expires: Start: 12-05-2023 End: 03-05-2024 Hemoglobin A1c in Blood HEMOGLOBIN A1C Lab Routine Type 2 diabetes mellitus without complication, without long-term current use of insulin (HCC) Expected: 12/05/2023, Expires: 03/05/2024 [facility] Work Phone: Comment on above: Expected: 12/05/2023, Expires: Start: 12-05-2023 End: 03-05-2024 Lipid 1996 panel - Serum or Plasma LIPID PANEL BASIC Lab Routine Elevated triglycerides with high cholesterol Expected: 12/05/2023, Expires: 03/05/2024 [facility] Comment on above: Expected: 12/05/2023, Expires: 4 Start: 12-05-2023 End: 03-05-2024 Microalbumin/Creatinine [Mass Ratio] in Urine ALBUMIN/CREATININE RATIO, URINE Lab Routine Type 2 diabetes mellitus without complication, without long-term current use of insulin (HCC) Expected: 12/05/2023, Expires: 03/05/2024 [facility] Comment on above: Expected: 12/05/2023, Expires: 4 Start: 05-27-2023 ANNUAL PCP TEAM CHRONIC DISEASE VISIT ANNUAL PCP TEAM CHRONIC DISEASE VISIT [facility] Start: 05-27-2023 COVID-19 VACCINE (#1) COVID-19 VACCINE (#1) [facility] Comment on above: Postponed from 1964 (Declined at t his time) Start: 05-27-2023 Hepatitis B surface antibody level LDL CHOLESTEROL [facility] Start: 05-27-2023 SHINGRIX VACCINE (1 of 2) SHINGRIX VACCINE (1 of 2) [facility] Comment on above: Postponed from 01/20/2014 (Declined at t his time) Start: 03-25-2023 Covid-19 Vaccine ( season) Covid-19 Vaccine ( season) [facility] Start: 03-25-2023 Influenza [facility] Start: 11-24-2022 Hemoglobin A1c measurement HbA1C [facility] Start: 11-24-2022 Hemoglobin A1c/Hemoglobin.total in Blood HBA1C [facility] Start: 11-04-2022 3 comp foot exam completed DIABETIC FOOT EXAM [facility] Start: 11-04-2022 ANNUAL PCP TEAM CHRONIC DISEASE VISIT ANNUAL PCP TEAM CHRONIC DISEASE VISIT [facility] Start: 11-04-2022 Hepatitis B screening URINE ALBUMIN:CREATININE RATIO [facility] Start: 07-25-2022 DEPRESSION ASSESSMENT DEPRESSION ASSESSMENT [facility] Start: 07-21-2022 ONE PNEUMOVAX PRIOR TO AGE 65 ONE PNEUMOVAX PRIOR TO AGE 65 [facility] Comment on above: Postponed from 1980 (Declined at t his time) Start: 07-21-2022 PNEUMOCOCCAL (1 - PCV) PNEUMOCOCCAL (1 - PCV) [facility] Comment on above: Postponed from 01/20/1970 (Declined at t his time) Start: 05-27-2022 End: 07-27-2022 Comprehensive metabolic 2000 panel - Serum or Plasma [facility] Work Phone: Comment on above: Expected: 05/27/2022, Expires: 3 Start: 05-27-2022 End: 07-27-2022 Hemoglobin A1c in Blood [facility] Work Phone: Comment on above: Expected: 05/27/2022, Expires: 3 Start: 05-27-2022 End: 07-27-2022 HIV 1+2 Ab [Presence] in Serum or Plasma by Immunoassay [facility] Work Phone: Comment on above: Expected: 05/27/2022, Expires: 3 Start: 05-27-2022 End: 07-27-2022 LIPID PANEL, NONFASTING [facility] Work Phone: Comment on above: Expected: 05/27/2022, Expires: 3 Start: 05-06-2022 Hemoglobin A1c/Hemoglobin.total in Blood HBA1C [facility] Start: 05-05-2022 PROSTATE CANCER SCREENING DISCUSSION PROSTATE CANCER SCREENING DISCUSSION [facility] Start: 03-25-2022 Influenza vaccination INFLUENZA (Season Ended) [facility] Start: 03-06-2022 Adult depression screening assessment DEPRESSION SCREENING [facility] Start: 03-06-2022 Hepatitis B surface antibody level LDL CHOLESTEROL [facility] Start: 03-06-2022 HIV SCREENING HIV SCREENING [facility] Comment on above: Postponed from 01/20/1982 (Declined at t his time) Start: 11-04-2021 End: 01-04-2022 ALBUMIN/CREAT RATIO RND UR [facility] Work Phone: Comment on above: Expected: 11/04/2021, Expires: 2 Start: 11-04-2021 End: 01-04-2022 Comprehensive metabolic 2000 panel - Serum or Plasma [facility] Work Phone: Comment on above: Expected: 11/04/2021, Expires: 2 Start: 11-04-2021 End: 01-04-2022 Hemoglobin A1c/Hemoglobin.total in Blood [facility] Work Phone: Comment on above: Expected: 11/04/2021, Expires: 2 Start: 09-06-2021 Hemoglobin A1c/Hemoglobin.total in Blood HBA1C [facility] Start: 01-20-2014 SHINGRIX VACCINE (1 of 2) SHINGRIX VACCINE (1 of 2) [facility] Start: 01-20-2009 COLOGUARD (FIT-DNA) COLOGUARD (FIT-DNA) [facility] Start: 01-20-[address] COLONOGRAPHY [facility] Start: 01-20-2009 FECAL OCCULT BLOOD FECAL OCCULT BLOOD [facility] Start: 01-20-2009 Screening for malignant neoplasm of colon [facility] Start: 01-20-2009 SIGMOIDOSCOPY SIGMOIDOSCOPY [facility] Start: 01-20-1983 Pneumococcal Vaccine: 50+ (1 of 2 - PCV) Pneumococcal Vaccine: 50+ (1 of 2 - PCV) [facility] Start: 01-20-1982 BP CONTROLLED (<130/80) BP CONTROLLED (<130/80) [facility] Start: 01-20-1982 HIV SCREENING HIV SCREENING [facility] Start: 01-20-1974 Glaucoma screening Dilated Retinal Exam [facility] Start: 01-20-1974 Hepatitis B screening URINE ALBUMIN:CREATININE RATIO [facility] Start: 01-20-1974 Hepatitis C antibody, confirmatory test DILATED RETINAL EXAM [facility] [facility]: [facility] PNEUMOCOCCAL (1 - PCV) PNEUMOCOCCAL (1 - PCV) [facility] ic Start: 01-20-1970 Pneumococcal vaccination [facility] Start: 01-20-1969 COVID-19 VACCINE (1) COVID-19 VACCINE (1) [facility] Immunizations Immunization Date Immunization Notes Care Provider Janell blanchard 05-27-2022 influenza, injectabl e, quadrivalent, contains preservative Juan R Osullivan MD Work Phone: [facility] 05-27-2022 influenza virus vaccine, unspecified formulation [employer] PATIENT SERVICE TECHNICIAN PST.AIR SURVEILLANCE OPERATOR Work Phone: [facility] 05-14-2018 influenza, injectabl e, quadrivalent, preservative free Juan R Osullivan MD Work Phone: [facility] Work Phone: 05-05-2017 influenza, injectabl e, quadrivalent, contains preservative [employer] PATIENT SERVICE TECHNICIAN PST.AIR SURVEILLANCE OPERATOR Work Phone: [facility] 05-05-2017 tetanus toxoid, reduced diphtheria toxoid, and acellular pertussis vaccine, adsorbed [employer] PATIENT SERVICE TECHNICIAN PST.AIR SURVEILLANCE OPERATOR Work Phone: [facility] Payers Date Payer Category Payer Self-pay 2024 Self-pay 2022 Private Health Insurance [id number] 2021 Private Health Insurance [id number] 2021 Unknown [employer] SS PPO [id number] 2021-Present [phone] [address] [place] [address] PPO [id number] 2020 Unknown EYE CARE PLAN OF [employer] [id number] 07/25/2020-Present [address] [place] [address] Indemnity [id number] 1965 Unknown [id number] Unknown [id number] Unknown [id number] Social History Date Type Detail Facility Start: 05-27-2022 Tobacco smoking status NHIS Never smoked tobacco [facility] Start: 11-04-2021 End: 03-15-2025 Alcohol intake Current drinker of alcohol (finding) [facility] Start: 07-20-2021 History SDOH Alcohol Frequency 4 [facility] Start: 07-20-2021 End: 05-26-2022 History SDOH Alcohol Std Drinks 1 [facility] Start: 05-05-2017 History SDOH Alcohol Comment Occasionally once per month [facility] Start: 07-20-2021 History SDOH Social Connections Phone 5 [facility] Start: 07-20-2021 History SDOH Social Connections Get Together 3 [facility] Start: 07-20-2021 End: 05-26-2022 History SDOH Stress 2 [facility] Start: 1965 Sex Assigned At Male [facility] Start: 10-16-2021 End: 05-27-2022 Exposure to SARS-CoV-2 (event) Not sure [facility] Work Phone: Start: 05-27-2022 Tobacco use and exposure Smokeless tobacco non-user [facility] Start: 05-27-2022 Alcohol Comment Occasionally twice per month [facility] Start: 12-05-2022 End: 01-07-2023 History of Social function [facility] Start: 12-05-2022 End: 01-07-2023 Social connection and isolation panel [facility] Start: 06-25-2012 Active Member of Clubs or Organizations Not on file [facility] Are you now , , , , never or living with a partner? [facility] How often to you hav e a drink containing alcohol? 2-4 times a month [facility] How many standard dr inks containing alcohol do you have on a typical day? 3 or 4 [facility] How often do you hav e 6 or more drinks on 1 occasion? Never [facility] Do you feel stress - tense, restless, nervous, or anxious, or unable to sleep at night because your mind is troubled all the time - these days [OSQ] To some extent [facility] (I/We) worried wheth er (my/our) food would run out before (I/we) got money to buy more. Never true [facility] In the past 12 month s, was there a time when you were not able to pay the mortgage or rent on time? No [facility] Start: 03-05-2021 Gender identity Identifies as male gender (finding) [facility] Start: 03-05-2021 Sexual orientation Heterosexual (finding) [facility] Medical Equipment Procedure Code Equipment Code Equipment Origin al Text Equipment Identifier Dates [id number] Start: 12-23-2023 Test blood sugar (s) 3 times daily. Dx: Type 2 DM - Uncontrolled E11.65 Insulin: Yes [id number] Start: 12-23-2023 Use one needle p er dose. once per day. [id number] Start: 01-27-2024 End: 09-19-2024 Use one needle p er dose. once per day. [id number] Start: 09-20-2024 Clinical Notes 11-04-2021 to 03-15-2025 Ingrid Sraavia APRN.AIR SURVEILLANCE OPERATOR - 03/15/2025 3:11 PM EDTPatient InstructionsRob Mckeon RT(R) - 03/15/2025 2:50 PM EDTCDaniele palencia RN - 10/18/2024 5:31 PM EDTPatient Instructions Note Date & Type Note Facility 03-15-2025 History of Present illness Narrative [facility] Phi Gonzalez is a 60 year old male. Patient presents with: Constipation: X9 days, used mag citrate w/o relief Constipation Constipation: - Chronic constipation for years, with episodes typically lasting 4-5 days. - Current episode of severe constipation lasting 9 days. - Minimal liquid stool passage; no solid stool passage. +flatus - Mild relief with taking magnesium citrate yesterday. - Took magnesium citrate yesterday afternoon; reports some stool passage and flatus since then. - Reports nausea and emesis of bile after straining. - Denies history of abdominal surgeries. Hypertension: - History of HTN. GERD: - History of acid reflux. Diabetes: - History of diabetes. PAST MEDICAL HISTORY Diagnosis Date Coronary artery disease Erectile dysfunction Essential hypertension GERD (gastroesophageal reflux disease) Hyperlipidemia Morbid obesity with BMI of 40.0-44.9, adult ([facility]) SILVANO (obstructive sleep apnea) severe Seasonal allergies Snoring Type 2 diabetes mellitus without complication, without long-term current use of insulin ([facility]) 03/09/2021 PAST SURGICAL HISTORY Procedure Laterality Date COLONOSCOPY FLX DX W/COLLJ SPEC WHEN PFRMD 09/22/2017 Colonoscopy ENDOSCOPIC EXCISION N-P MASS 11/10/2017 excision cyst mass colon ALLERGIES Losartan and Seasonal Allergies MEDICATIONS insulin needles, DISPOSABLE, (PEN NEEDLE) 31 gauge x /16 Use one needle per dose. once per day. insulin glargine (LANTUS SOLOSTAR U-100 INSULIN) 100 unit/mL (3 mL) Inject 10 Units subcutaneously daily at bedtime. empagliflozin (JARDIANCE) 10 mg tablet Take 1 tablet by mouth once daily. Take 1 tablet once daily in the morning Lancets Test blood sugar(s) 3 times daily. Dx: Type 2 DM - Uncontrolled E11.65 Insulin: Yes blood sugar diagnostic (BLOOD GLUCOSE TEST) test strip Test blood sugar(s) 3 times daily. Dx: Type 2 DM - Uncontrolled E11.65 Insulin: Yes lisinopril (ZESTRIL) 10 mg tablet Take 1 tablet by mouth once daily. atorvastatin (LIPITOR) 20 mg tablet Take 1 tablet by mouth daily at bedtime. For cholesterol. cetirizine-pseudoephedrine (ZYRTEC-D) 5-120 mg per tablet Take 1 tablet by mouth once daily. polyethylene glycol 3350 (MIRALAX) 17 gram/dose powder Dissolve dose in 4 - 8 ounces of liquid and take as directed. Bisacodyl (DULCOLAX) 5 mg tab Take 2 tablets by mouth as needed for constipation. empagliflozin (JARDIANCE) 10 mg tablet Take 1 tablet by mouth once daily. Take 1 tablet once daily in the morning (Patient not taking: Reported on 03/15/2025) Tadalafil (CIALIS) 10 mg tablet Take 1 tablet by mouth as needed (Prior to sexual intercourse). (Patient not taking: Reported on 03/15/2025) CPAP Initiate Auto PAP @ 5-20 cm of water with humidification. Mask (per patient preference) optional chin strap (if indicated) , filters, tubing, humidifier and lifetime supplies. (Patient not taking: Reported on 12/05/2023) FAMILY HISTORY Adopted: Yes Family history unknown: Yes SOCIAL HISTORY[1] Review of Systems Gastrointestinal: Positive for constipation. Constitutional: (+) fatigue Gastrointestinal: (+) constipation, (+) abdominal cramping, (+) nausea, (+) vomiting, (+) diarrhea, (+) hematochezia, (+) flatulence Objective BP 151/100 Pulse 79 Temp 36.6 C (97.8 F) Resp 18 Wt 117.5 kg (259 lb 0.7 oz) SpO2 99% BMI 39.03 kg/m Physical Exam Vitals and nursing note reviewed. Constitutional: General: He is not in acute distress. Appearance: Normal appearance. He is not ill-appearing, toxic-appearing or diaphoretic. HENT: Head: Normocephalic and atraumatic. Right Ear: External ear normal. Left Ear: External ear normal. Nose: Nose normal. No congestion or rhinorrhea. Mouth/Throat: Mouth: Mucous membranes are moist. Pharynx: Oropharynx is clear. No oropharyngeal exudate or posterior oropharyngeal erythema. Eyes: General: Right eye: No discharge. Left eye: No discharge. Extraocular Movements: Extraocular movements intact. Conjunctiva/sclera: Conjunctivae normal. Pupils: Pupils are equal, round, and reactive to light. Cardiovascular: Rate and Rhythm: Normal rate and regular rhythm. Pulses: Normal pulses. Heart sounds: Normal heart sounds. No murmur heard. No friction rub. No gallop. Pulmonary: Effort: Pulmonary effort is normal. No respiratory distress. Breath sounds: Normal breath sounds. No stridor. No wheezing, rhonchi or rales. Chest: Chest wall: No tenderness. Abdominal: General: Abdomen is flat. Bowel sounds are normal. There is no distension. Palpations: Abdomen is soft. There is no mass. Tenderness: There is no abdominal tenderness. There is no guarding or rebound. Hernia: No hernia is present. Musculoskeletal: General: No swelling, tenderness, deformity or signs of injury. Normal range of motion. Cervical back: Normal range of motion and neck supple. No rigidity or tenderness. Right lower leg: No edema. Left lower leg: No edema. Lymphadenopathy: Cervical: No cervical adenopathy. Skin: General: Skin is warm and dry. Capillary Refill: Capillary refill takes less than 2 seconds. Coloration: Skin is not jaundiced or pale. Findings: No bruising, lesion or rash. Neurological: General: No focal deficit present. Mental Status: He is alert and oriented to person, place, and time. Cranial Nerves: No cranial nerve deficit. Sensory: No sensory deficit. Motor: No weakness. Coordination: Coordination normal. Gait: Gait normal. Deep Tendon Reflexes: Reflexes normal. Psychiatric: Mood and Affect: Mood normal. Behavior: Behavior normal. Thought Content: Thought content normal. { 1. Acute constipation (K59.00) - Chronic constipation with acute exacerbation; KUB x-ray reveals moderate stool burden, non-obstructive bowel gas pattern. - Start Miralax twice a day - Start bisacodyl 10 mg tablet this evening, one-time dose. - Increase dietary fiber and fluid intake. Discussed red flags 2. Essential (primary) hypertension (I10) Continue medicines 3. Gastro-esophageal reflux disease without esophagitis (K21.9) Continue medicines 4. Type 2 diabetes mellitus without complication, unspecified whether predatory animal exterminator insulin use (HCC) (E11.9) and Recording using [employer]arch software for draft documentation of the visit was discussed with the patient/authorized key account representative; all questions welcomed and answered. Patient/authorized key account representative agreed to proceed MDM Procedures [1] Social History Tobacco Use Smoking status: Never Smokeless tobacco: Never Substance Use Topics Alcohol use: Yes Comment: Occasionally twice per month Drug use: No documented in this encounter [facility] 03-15-2025 Instructions Ingrid Saravia APRN.CNP - 03/15/2025 2:57 PM EDT Constipation Constipation can be an unpleasant topic to talk about. Most people have experienced constipation at some point in their life. Though typically not serious, constipation can be both painful and frustrating. What is constipation? Constipation occurs when bowel movements become difficult or less frequent than normal. The frequency or time between bowel movements ranges widely from person to person. Some people have bowel movements several times a day while others only one to two times a week. Going longer than three days without a bowel movement is too long. After three days, the stool becomes harder and more difficult to pass. What causes constipation? Constipation is most commonly caused by inadequate fiber in the diet or a disruption of the regular diet or routine. Chronic constipation may be due to a poor diet, dehydration, certain medications (such as antidepressants, strong pain medications), stress, or the pressure of other activities that force you to ignore the urge to empty the bowel. Various medical conditions can also cause or aggravate constipation. Some of the more common medical conditions that cause constipation include endocrine problems, such as decreased function of the thyroid gland or diabetes. Colorectal cancer is another medical condition that can cause constipation but it usually also accompanied by other symptoms including blood in the stool and weight loss. Common causes of constipation include the following: A diet low in fiber Not drinking enough water Lack of exercise Travel or another change in routine Eating large amounts of milk or cheese Stress or resisting the urge to have a bowel movement Medications strong pain medicines such as narcotics antidepressants antacids containing calcium or aluminum such as TUMS iron pills allergy medications such as antihistamines certain blood pressure medicines psychiatric medications herbal supplements Irritable bowel syndrome (IBS) Neurologic disorders including spinal cord injury and multiple sclerosis (MS) Slow transit of the colon How is constipation evaluated? Most people do not need extensive testing to evaluate constipation. Only a small number of patients with constipation have a serious underlying medical problem (such as poor function of the thyroid gland, diabetes, or colorectal cancer). If you have constipation that has persisted for more than two weeks, you should see a doctor to determine if you need further evaluation. For a patient who has colorectal cancer, early detection and treatment may be life-saving. Standard evaluation for constipation includes performing blood tests and examining the colon by colonoscopy, particularly for patients older than 50 years.. Other tests include colonic transit studies (time it takes for stools to move through the colon) and anal manometry (measures pressure and muscle function in the rectum and anus). Most patients with serious constipation, and without any obvious illness to explain their symptoms, suffer from one of two problems: Colonic inertia (also called lazy colon): a condition in which the colon contracts poorly and retains stool. This can be determined by colon transit studies. Obstructed defecation: a condition in which the colon contracts normally, but the patient is unable to expel stool from the rectum. This condition can be confirmed by a test called anal manometry. How can I prevent constipation? Eat a well-balanced diet with plenty of fiber. Good sources of fiber are fruits, vegetables, legumes, and whole-grain breads and cereals. Fiber and water help the colon pass stool. Most of the fiber in fruits is found in the skins, such as in apples. Fruits with seeds you can eat, like strawberries, have the most fiber. Bran is a great source of fiber: eat bran cereal or add bran cereal to other foods, like soup and yogurt. Drink eight 8-ounce glasses of water a day. (Note: Milk can cause constipation in some people.) Liquids that contain caffeine, such as coffee and soft drinks, have a dehydrating effect and may need to be avoided until your bowel habits return to normal. Exercise regularly. Move your bowels when you feel the urge. How is constipation treated? Drink two to four extra glasses of water a day. Try warm liquids, especially in the morning. Add fruits and vegetables to your diet. Eat prunes and/or bran cereal. Add supplemental fiber to your diet (there are several types, such as Metamucil, Citrucel, and Benefiber). If needed, use a very mild stool softener or laxative (such as colace [docusate] or Milk of Magnesia). Do not use laxatives for more than two weeks without calling your health care provider, as laxative overuse can aggravate your symptoms. When should I call my health care provider? Call your health care provider if: Constipation is a new problem for you. You have blood in your stool. You are losing weight unintentionally. You have severe pain with bowel movements. Your constipation has lasted more than three weeks. Where can I learn more? National Digestive Diseases Information Clearinghouse2 Information [place], [place] [address] www.digestive.niddk.nih.gov email: References: National Digestive Diseases Information Clearinghouse. Constipation. digestive.niddk.nih.gov Accessed April 28, 2012. [employer]. Understanding Constipation. www.gastro.org. Accessed April 28, 2012. Copyright 3518-9027 [facility]. All rights reserved This information is provided by the [facility] and is not intended to replace the medical advice of your doctor or health care provider. Please consult your health care provider for advice about a specific medical condition. For additional health information, please contact the Center for Consumer Health Information at the [facility] or toll-free extension [phone]. If you prefer, you may visit [email or web address].[email or web address]/ or www.[email or web address]. This document was last reviewed on: 2012 index #[id number] documented in this encounter [facility] 03-15-2025 History of Present illness Narrative Radiology Service Progress Note PATIENT NAME: Phi Gonzalez DATE OF SERVICE: March 15, 2025 TIME: 2:29 PM PATIENT IDENTITY VERIFICATION COMPLETED USING TWO (2) IDENTIFIERS: Name and Date of confirmed by patient verbally. FALL SCREENING: Has the patient had 2 falls in the last year or 1 fall with injury or currently using an Ambulatory Assistive Device (Walker, Cane, Wheelchair, Crutches, etc.)? No PATIENT GENDER DATA: Assigned male at PATIENT RELEVANT IMPLANT DATA REVIEWED: Not Applicable PATIENT PRESENTS WITH AN IMPLANTABLE OR ATTACHED MOVIE WRITER: No RADIOLOGY DEPARTMENT: General X-ray: Exam(s) Completed: Abdomen X-Ray: Abdomen with Upright PERIPHERAL IV DATA: Not applicable SIGNED BY: RT Aaron(R) March 15, 2025 2:29 PM documented in this encounter [facility] 10-18-2024 Note HNO ID: [id number] Author: DANIELE MCKEON RN Service: ? Author Type: Registered Nurse Type: Progress Notes Filed: 10/18/2024 18:00 Note Text: DIABETES SELF-MANAGEMENT EDUCATION AND SUPPORT Location: [facility] Type of visit: Virtual (with video) individual I have communicated my name and active licensure. The patient's identity and physical location were verified at the time of this visit. Either the patient or their legal key account representative has been informed of the risks and benefits of -- and alternatives to -- treatment through a remote evaluation and consents to proceed with the evaluation remotely. Types of DSMES: Initial/Comprehensive (add to or update ADA spreadsheet) PATIENT'S MAIN CONCERN TODAY: my doctor suggested this visit a year ago but I never scheduled it. When my A1c went up to over 11, his nurse practitioner said I really need to take insulin, so I started. Support person present for education today: none Cognitive ability: Alert and oriented Motivation to learn: Interested Learning barriers identified by educator: none and openly discussed his lack of motivation to make healthy lifestyle changes but after more discussion, determined he has made some effort and praised for same Method of instruction: verbal INTERVENTIONS/TOPICS COVERED: -Diabetes Pathophysiology: diabetes disease process, role of insulin in the body, role of glucose in the body, difference between Type 1 and Type 2, Type 2 diabetes risk factors, progression of Type 2 , and symptoms of diabetes -Monitoring: A1c meaning and target <7%, BG targets, Pt able to do a successful self-check of BG with no coaching, and sharps disposal -Healthy Eating: impact of carbs on BG and portion sizes -Medications: medication safety/timing, reviewed home DM meds, basal insulin, oral agents discussed: empagliflozin (Jardiance), and discussed GLP-1 as an option, he was very interested, suggested he follow up discussion with PCP to determine if he would be a good candidate -Physical Activity: benefits of exercise and types of exercise -Acute Complications: hyperglycemia s/sx/tx -Chronic Complications: importance of BG control to reduce risks -Healthy Coping and Support: benefits of a support system, types of support (ex:family, friends, support groups, diabetes groups on social media) DIABETES ASSESSMENT: Referring Physician: India Tavares Previous Diabetes Education? No What are you hoping to gain from this visit? Help with a plan to manage and motivate In your words, what is diabetes? Body produces too much sugar What concerns you about having diabetes? Not really sure what it will take to make me take it more serious, even with my A1c high. There are things I can do to make it better, not sure why I don't. Diabetes History: Type of Diabetes: Type 2 What year were you diagnosed? 2021 Does anyone in your family have diabetes? asked/not answered unknown, adopted How do you learn best? 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 never How often does someone help you read your pill bottles? never How often does someone have to help you take care of your diabetes? never Major stressors:asked/not answered How do you manage stress? asked/not answered Do any of the following things get in the way of managing your diabetes? No self-identified issues Health History: Most recent eye exam: Asked/not answered Most recent dental exam:Asked/not answered Most recent foot exam:Asked/not answered How often do you inspect your feet at home? Asked/Not answered Do you use tobacco? Asked/not answered Do you use alcohol? Yes, How much? Has stopped drinking during the week, now just weekends, sips bourban, stopped Old fashion mixed drink, too much sugar In the past 12 months have you had any: Hospital Admissions: Asked/not answered ER Visits: Asked/not answered Primary Care Visits: Asked/not answered What are your general feelings about you overall health? Other I have sleep apnea, overweight, sedentary lifestyle, don't eat healthy, I have not changed and don't know why Medical Issues/Complications: reviewed below PAST MEDICAL HISTORY Diagnosis Date Coronary artery disease Erectile dysfunction Essential hypertension GERD (gastroesophageal reflux disease) Hyperlipidemia Morbid obesity with BMI of 40.0-44.9, adult ([facility]) SILVANO (obstructive sleep apnea) severe Seasonal allergies Snoring Type 2 diabetes mellitus without complication, without long-term current use of insulin ([facility]) 03/09/2021 Most recent A1C Lab Results Component V (more content not included)... [facility] 10-18-2024 History of Present illness Narrative DIABETES SELF-MANAGEMENT EDUCATION AND SUPPORT Location: [facility] Type of visit: Virtual (with video) individual I have communicated my name and active licensure. The patient's identity and physical location were verified at the time of this visit. Either the patient or their legal key account representative has been informed of the risks and benefits of -- and alternatives to -- treatment through a remote evaluation and consents to proceed with the evaluation remotely. Types of DSMES: Initial/Comprehensive (add to or update ADA spreadsheet) PATIENT'S MAIN CONCERN TODAY: my doctor suggested this visit a year ago but I never scheduled it. When my A1c went up to over 11, his nurse practitioner said I really need to take insulin, so I started. Support person present for education today: none Cognitive ability: Alert and oriented Motivation to learn: Interested Learning barriers identified by educator: none and openly discussed his lack of motivation to make healthy lifestyle changes but after more discussion, determined he has made some effort and praised for same Method of instruction: verbal INTERVENTIONS/TOPICS COVERED: -Diabetes Pathophysiology: diabetes disease process, role of insulin in the body, role of glucose in the body, difference between Type 1 and Type 2, Type 2 diabetes risk factors, progression of Type 2 , and symptoms of diabetes -Monitoring: A1c meaning and target <7%, BG targets, Pt able to do a successful self-check of BG with no coaching, and sharps disposal -Healthy Eating: impact of carbs on BG and portion sizes -Medications: medication safety/timing, reviewed home DM meds, basal insulin, oral agents discussed: empagliflozin (Jardiance), and discussed GLP-1 as an option, he was very interested, suggested he follow up discussion with PCP to determine if he would be a good candidate -Physical Activity: benefits of exercise and types of exercise -Acute Complications: hyperglycemia s/sx/tx -Chronic Complications: importance of BG control to reduce risks -Healthy Coping and Support: benefits of a support system, types of support (ex:family, friends, support groups, diabetes groups on social media) DIABETES ASSESSMENT: Referring Physician: India Tavares Previous Diabetes Education? No What are you hoping to gain from this visit? Help with a plan to manage and motivate In your words, what is diabetes? Body produces too much sugar What concerns you about having diabetes? Not really sure what it will take to make me take it more serious, even with my A1c high. There are things I can do to make it better, not sure why I don't. Diabetes History: Type of Diabetes: Type 2 What year were you diagnosed? 2021 Does anyone in your family have diabetes? asked/not answered unknown, adopted How do you learn best? 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 never How often does someone help you read your pill bottles? never How often does someone have to help you take care of your diabetes? never Major stressors:asked/not answered How do you manage stress? asked/not answered Do any of the following things get in the way of managing your diabetes? No self-identified issues Health History: Most recent eye exam: Asked/not answered Most recent dental exam:Asked/not answered Most recent foot exam:Asked/not answered How often do you inspect your feet at home? Asked/Not answered Do you use tobacco? Asked/not answered Do you use alcohol? Yes, How much? Has stopped drinking during the week, now just weekends, sips bourban, stopped Old fashion mixed drink, too much sugar In the past 12 months have you had any: Hospital Admissions: Asked/not answered ER Visits: Asked/not answered Primary Care Visits: Asked/not answered What are your general feelings about you overall health? Other I have sleep apnea, overweight, sedentary lifestyle, don't eat healthy, I have not changed and don't know why Medical Issues/Complications: reviewed below PAST MEDICAL HISTORY Diagnosis Date Coronary artery disease Erectile dysfunction Essential hypertension GERD (gastroesophageal reflux disease) Hyperlipidemia Morbid obesity with BMI of 40.0-44.9, adult ([facility]) SILVANO (obstructive sleep apnea) severe Seasonal allergies Snoring Type 2 diabetes mellitus without complication, without long-term current use of insulin ([facility]) 03/09/2021 Most recent A1C Lab Results Component Value Date HBA1C 7.9 05/27/2022 HBA1C 6.2 11/04/2021 HBA1C 6.5 03/06/2021 HBA1C 5.9 10/17/2017 HBA1C 6.2 06/06/2017 Physical Activity: Do you do a regular exercise? No does track steps and gets 6 to 7000 at work Sick Days: How do you manage your diabetes when you are sick? Asked/not answered Sleep: Do you get at least 7 hrs of sleep most nights? Yes, not using CPAP, despite new smaller mask, cannot tolerate, feels like he is suffocating, would benefit from a new sleep assessment and recommended he discuss with PCP, ask for referral Current Outpatient Medications Medication Sig insulin needles, DISPOSABLE, (PEN NEEDLE) 31 gauge x 5/16 Use one needle per dose. once per day. insulin glargine (LANTUS SOLOSTAR U-100 INSULIN) 100 unit/mL (3 mL) Inject 10 Units subcutaneously daily at bedtime. empagliflozin (JARDIANCE) 10 mg tablet Take 1 tablet by mouth once daily. Take 1 tablet once daily in the morning Lancets Test blood sugar(s) 3 times daily. Dx: Type 2 DM - Uncontrolled E11.65 Insulin: Yes blood sugar diagnostic (BLOOD GLUCOSE TEST) test strip Test blood sugar(s) 3 times daily. Dx: Type 2 DM - Uncontrolled E11.65 Insulin: Yes lisinopril (ZESTRIL) 10 mg tablet Take 1 tablet by mouth once daily. atorvastatin (LIPITOR) 20 mg tablet Take 1 tablet by mouth daily at bedtime. For cholesterol. Tadalafil (CIALIS) 10 mg tablet Take 1 tablet by mouth as needed (Prior to sexual intercourse). empagliflozin (JARDIANCE) 10 mg tablet Take 1 tablet by mouth once daily. Take 1 tablet once daily in the morning CPAP Initiate Auto PAP @ 5-20 cm of water with humidification. Mask (per patient preference) optional chin strap (if indicated) , filters, tubing, humidifier and lifetime supplies. (Patient not taking: Reported on 12/05/2023) cetirizine-pseudoephedrine (ZYRTEC-D) 5-120 mg per tablet Take 1 tablet by mouth once daily. No current facility-administered medications for this visit. Medications for Diabetes: Name of Medication Dose When taken How often missed jardiance 10 mg daily never lantus 10 units bedtime never Injections Technique: Do you take insulin or a medication you inject for your diabetes? Yes;then if so answer the following questions: How do you inject your medicine Pen Where are your injections done? Stomach/abdomen Who prepares your syringes, pen, or pump infusion set? Self Who gives you injections or changes your pump sites? Me Where do you throw away your needles? sharps container Glucose Monitoring: Device: fingerstick meter (type: freestyle lite) Checking frequency: 2 times per day Checking times: before breakfast and before all/most meals How are glucose levels shared with diabetes provider? verbal listing from memory Lancet disposal: sharps container Management of Low Blood Sugar: What has been your lowest blood sugar in the last month? 170 to 180 fasting What are your symptoms of lows?never had How do you treat lows? asked/not answered Do you drive? yes If you are on a pump or MDI, do you have a prescription for Glucagon? n/a - not on a pump or MDI Management of High Blood Sugar: What has been you highest blood sugar in the last month? Mid 200's What are your symptoms of highs? Tired How do you treat your highs? Started taking insulin, I do take my medications consistently Meal Planning: Are you currently following any meal plan? None. Has been for 12 years, was doing all cooking so he shared he is not interested and either dines out or has used meal delivery in the past. Has questions about best options, wants something that requires no or minimal preparation and willing to pay for convenience. Who does the cooking in your house? Self Who does the grocery shopping? Self How often do you eat out? 6 or more times per week How many meals do you eat per day? Three Breakfast: eggs, toast and pancakes, Lunch: fast food, Dinner: restaurant most nights, trying to eat more fish instead of red meat, grills out at home, sides of more NS vegetables instead of potatoes, Which meals do you tend to skip? None Beverages: water, alcohol noted above, decreased frequency and content Reproductive Status (Females): Have you reached menopause? N/A (male patient) EDUCATION HANDOUTS: None LEARNING RESPONSE: Diabetes pathophysiology: Demonstrated understanding/competency today or at previous visit Healthy eating: Needs further instruction/review Being active: Needs further instruction/review Taking medications: Demonstrated understanding/competency today or at previous visit Monitoring glucose: Demonstrated understanding/competency today or at previous visit Acute complications: Demonstrated understanding/competency today or at previous visit Chronic complications: Demonstrated understanding/competency today or at previous visit Healthy coping: Demonstrated understanding/competency today or at previous visit Diabetes distress and support: Demonstrated understanding/competency today or at previous visit PATIENT SELECTED THE FOLLOWING GOALS: -Problem solving goal: address sleep apnea 2: I might be ready to make a plan -Other goal: consider GLP-1 if candidate and recommended by PCP 2: I might be ready to make a plan POSSIBLE FUTURE TOPICS: 1. The following topics were not assessed due to time limitations, but should be assessed at the next visit: all areas were assessed today or within the last 12 months. 2. The following topics should be taught or reinforced at the next visit: review most current A1c, review recommendations from PCP. DIABETES EDUCATION PLAN: Individual follow-up next week after visit with PCP and lab done, scheduled visit for MNT Time Spent (Minutes): 45 This visit note will be communicated to the healthcare provider via access to shared medical record. SIGNATURE: Daniele Mckeon RN PATIENT NAME: Phi Gonzalez DATE: October 18, 2024 TIME: 5:31 PM PAGER: documented in this encounter [facility] 09-20-2024 Telephone encounter Note Overdue for OV. Needs to schedule in next 30 days. [facility] 09-20-2024 Miscellaneous Notes Overdue for OV. Needs to schedule in next 30 days. The patient has been identified by name and date of : Yes Caregiver verified no other encounters exist for this prescription request: Yes Caregiver confirmed with patient/requestor that no other refills are due, in the near future, with this provider at this time: Yes The last office visit in the department: 12/05/2023 Does the patient have a future office visit with this provider/department: Yes 10/01/2024 Requested Prescriptions Pending Prescriptions Disp Refills insulin needles, DISPOSABLE, (PEN NEEDLE) 31 gauge x 5/16 100 Each 11 Sig: Use one needle per dose. once per day. Myriam Lynch RN September 19, 2024 4:58 PM documented in this encounter [facility] 09-19-2024 Telephone encounter Note The patient has been identified by name and date of : Yes Caregiver verified no other encounters exist for this prescription request: Yes Caregiver confirmed with patient/requestor that no other refills are due, in the near future, with this provider at this time: Yes The last office visit in the department: 12/05/2023 Does the patient have a future office visit with this provider/department: Yes 10/01/2024 Requested Prescriptions Pending Prescriptions Disp Refills insulin needles, DISPOSABLE, (PEN NEEDLE) 31 gauge x 5/16 100 Each 11 Sig: Use one needle per dose. once per day. Myriam Lynch RN September 19, 2024 4:58 PM [facility] 08-29-2024 Telephone encounter Note Phoned patient and updated him with provider's message. Patient voiced understanding. Jessica Wynn LPN [facility] 08-29-2024 Miscellaneous Notes Phoned patient and updated him with provider's message. Patient voiced understanding. Jessica Wynn LPN I will send in another 30 day refill, but needs OV in the next 1 month for DM follow up. Per EPIC, Jardiance last prescribed 05/29/24, #30. Phone call to patient to see if he has been taking the jardiance. Pt states that he finished that prescription in June, so he has gone without all of July. Pt KILEY with [place] 12/04/24 and was asked to follow up in 3 months. Masha Aguayo MA Patient is asking for a refill that is empagliflozin (JARDIANCE) 10 mg tablet ( Patient last seen 12/05/23 Future visit scheduled: no PHARMACY: [facility]. documented in this encounter [facility] 08-29-2024 Telephone encounter Note I will send in another 30 day refill, but needs OV in the next 1 month for DM follow up. [facility] 08-29-2024 Telephone encounter Note Per EPIC, Jardiance last prescribed 05/29/24, #30. Phone call to patient to see if he has been taking the jardiance. Pt states that he finished that prescription in June, so he has gone without all of July. Pt KILEY with [place] 12/04/24 and was asked to follow up in 3 months. Masha Aguayo MA [facility] 08-29-2024 Telephone encounter Note Patient is asking for a refill that is empagliflozin (JARDIANCE) 10 mg tablet ( Patient last seen 12/05/23 Future visit scheduled: no PHARMACY: [facility]. [facility] 06-27-2024 Telephone encounter Note MyChart msg sent to pt as requested. [facility] 06-27-2024 Miscellaneous Notes MyChart msg sent to pt as requested. Labs ordered to be completed 1-2 days prior to OV. Derik is calling Juan R Osullivan MD today to request an order for labs for his upcoming appointment. Please send a message in [employer] when labs are ordered. TY Patient has been identified by name and birthdate. Duration of symptoms: N/A Person calling: self Call patient at: at home [phone] (home) [phone] (cell) Was an appointment scheduled: No Closing statement: Results or non-symptom based questions: Thank you for calling [facility], your call will be returned within the next business day. India Miller documented in this encounter [facility] 06-27-2024 Telephone encounter Note Labs ordered to be completed 1-2 days prior to OV. [facility] 06-27-2024 Telephone encounter Note Derik is calling Juan R Osullivan MD today to request an order for labs for his upcoming appointment. Please send a message in [employer] when labs are ordered. TY Patient has been identified by name and birthdate. Duration of symptoms: N/A Person calling: self Call patient at: at home [phone] (home) [phone] (cell) Was an appointment scheduled: No Closing statement: Results or non-symptom based questions: Thank you for calling [facility], your call will be returned within the next business day. India Miller [facility] 05-29-2024 Telephone encounter Note Spoke with pt and apt booked and pt will get blood work done prior to apt. Sandhya Jackson LPN [facility] 05-29-2024 Miscellaneous Notes Spoke with pt and apt booked and pt will get blood work done prior to apt. Sandhya Jackson LPN Please let patient know he is overdue for follow up and needs schedule. Prescription Refill Information The patient has been identified by name and date of : Yes Caregiver verified no other encounters exist for this prescription request: Yes Caregiver confirmed with patient/requestor that no other refills are due, in the near future, with this provider at this time: Yes The last office visit in the department: 12-05-23 Does the patient have a future office visit with this provider/department: No Requested Prescriptions Pending Prescriptions Disp Refills empagliflozin (JARDIANCE) 10 mg tablet 90 tablet 0 Sig: Take 1 tablet by mouth once daily. Take 1 tablet once daily in the morning Klarissa Luna May 28, 2024 3:12 PM documented in this encounter [facility] 05-29-2024 Telephone encounter Note Please let patient know he is overdue for follow up and needs schedule. [facility] 05-28-2024 Telephone encounter Note Prescription Refill Information The patient has been identified by name and date of : Yes Caregiver verified no other encounters exist for this prescription request: Yes Caregiver confirmed with patient/requestor that no other refills are due, in the near future, with this provider at this time: Yes The last office visit in the department: 12-05-23 Does the patient have a future office visit with this provider/department: No Requested Prescriptions Pending Prescriptions Disp Refills empagliflozin (JARDIANCE) 10 mg tablet 90 tablet 0 Sig: Take 1 tablet by mouth once daily. Take 1 tablet once daily in the morning Klarissa Luna May 28, 2024 3:12 PM [facility] Work Phone: 05-07-2024 Telephone encounter Note Prescription Refill Information The patient has been identified by name and date of : Yes Caregiver verified no other encounters exist for this prescription request: Yes Caregiver confirmed with patient/requestor that no other refills are due, in the near future, with this provider at this time: Yes The last office visit in the department: 12-05-23 Does the patient have a future office visit with this provider/department: Yes Requested Prescriptions Pending Prescriptions Disp Refills insulin glargine (LANTUS SOLOSTAR U-100 INSULIN) 100 unit/mL (3 mL) 3 Each 0 Sig: Inject 10 Units subcutaneously daily at bedtime. Martita Luna May 07, 2024 1:31 PM [facility] 05-07-2024 Miscellaneous Notes Prescription Refill Information The patient has been identified by name and date of : Yes Caregiver verified no other encounters exist for this prescription request: Yes Caregiver confirmed with patient/requestor that no other refills are due, in the near future, with this provider at this time: Yes The last office visit in the department: 12-05-23 Does the patient have a future office visit with this provider/department: Yes Requested Prescriptions Pending Prescriptions Disp Refills insulin glargine (LANTUS SOLOSTAR U-100 INSULIN) 100 unit/mL (3 mL) 3 Each 0 Sig: Inject 10 Units subcutaneously daily at bedtime. Martita Luna May 07, 2024 1:31 PM documented in this encounter [facility] 04-17-2024 Telephone encounter Note Prescription Refill Information The patient has been identified by name and date of : Yes Caregiver verified no other encounters exist for this prescription request: Yes Caregiver confirmed with patient/requestor that no other refills are due, in the near future, with this provider at this time: Yes The last office visit in the department: 12/05/2023 Does the patient have a future office visit with this provider/department: Yes Requested Prescriptions Pending Prescriptions Disp Refills empagliflozin (JARDIANCE) 10 mg tablet 30 tablet 0 Sig: Take 1 tablet by mouth once daily. Take 1 tablet once daily in the morning Please send a 90 day supply to mail order pharmacy [facility] Quintero April 17, 2024 3:47 PM [facility] 04-17-2024 Miscellaneous Notes Prescription Refill Information The patient has been identified by name and date of : Yes Caregiver verified no other encounters exist for this prescription request: Yes Caregiver confirmed with patient/requestor that no other refills are due, in the near future, with this provider at this time: Yes The last office visit in the department: 12/05/2023 Does the patient have a future office visit with this provider/department: Yes Requested Prescriptions Pending Prescriptions Disp Refills empagliflozin (JARDIANCE) 10 mg tablet 30 tablet 0 Sig: Take 1 tablet by mouth once daily. Take 1 tablet once daily in the morning Please send a 90 day supply to mail order pharmacy [facility] Qu[facility] April 17, 2024 3:47 PM documented in this encounter [facility] 03-12-2024 Telephone encounter Note Phoned patient and advised him PCP placed orders last week and recommend at least 2 days prior to appt to complete labs. Patient reports he will try to come tomorrow to complete. Jessica Wynn LPN [facility] 03-12-2024 Miscellaneous Notes Phoned patient and advised him PCP placed orders last week and recommend at least 2 days prior to appt to complete labs. Patient reports he will try to come tomorrow to complete. Jessica Wynn LPN Mychart message sent to pt notifying him we tried to contact him with message left for a call back. Notified pt that fasting labs and a urine have been ordered to complete this week for his upcoming appt next week. Will keep encounter open to make sure pt has read his message. Yudi Pimentel MA Phoned patient left message to return call and ask to speak to a nurse. Labs ordered. Come in this week to have them done so we can review at his appointment. Patient called to request lab orders for his upcoming follow up appt with Dr. Osullivan. Please call him at [phone] when placed. documented in this encounter [facility] 03-09-2024 Telephone encounter Note Mychart message sent to pt notifying him we tried to contact him with message left for a call back. Notified pt that fasting labs and a urine have been ordered to complete this week for his upcoming appt next week. Will keep encounter open to make sure pt has read his message. Yudi Pimentel MA [facility] 03-06-2024 Telephone encounter Note Phoned patient left message to return call and ask to speak to a nurse. [facility] 03-06-2024 Telephone encounter Note Labs ordered. Come in this week to have them done so we can review at his appointment. [facility] 03-06-2024 Telephone encounter Note Patient called to request lab orders for his upcoming follow up appt with Dr. Osullivan. Please call him at [phone] when placed. [facility] 02-02-2024 Telephone encounter Note Telephoned the patient regarding missed appt. Left a message. First attempt. [facility] 02-02-2024 Miscellaneous Notes Telephoned the patient regarding missed appt. Left a message. First attempt. [facility] Pharmacy Rescheduling Outreach Call center, please contact patient and reschedule in person, telephone, and virtual visit for Diabetes management within ~4 week(s). (Visit length: 60 minutes - NEW) Thank you, Charisse Nguyen PharmD, BCACP [facility] [employer] 02/02/2024 3:57 PM documented in this encounter [facility] 02-02-2024 Telephone encounter Note Primary Care Pharmacy Rescheduling Outreach Call center, please contact patient and reschedule in person, telephone, and virtual visit for Diabetes management within ~4 week(s). (Visit length: 60 minutes - NEW) Thank you, Charisse Nguyen PharmD, BCACP Primary Care Clinical [facility] [employer] 02/02/2024 3:57 PM [facility] Work Phone: 01-27-2024 Telephone encounter Note Patient updated and voiced understanding. Jessica Wynn LPN [facility] 01-27-2024 Miscellaneous Notes Patient updated and voiced understanding. Jessica Wynn LPN Prescription sent. India Tavares APRN.CNP Derik is calling India Tavares APRN.CNP today to request Medication Problem (Patient states that the insulin pen needles were not sent to the pharmacy. Please send script over to his pharmacy ) Patient has been identified by name and birthdate. Duration of symptoms: N/A Person calling: self Call patient at: at home [phone] (home) [phone] (cell) Was an appointment scheduled: No Closing statement: Results or non-symptom based questions: Thank you for calling [facility], your call will be returned within the next business day. Masha Luna documented in this encounter [facility] 01-27-2024 Telephone encounter Note Prescription sent. India Tavares APRN.CNP [facility] 01-27-2024 Telephone encounter Note Derik is calling India Tavares APRN.CNP today to request Medication Problem (Patient states that the insulin pen needles were not sent to the pharmacy. Please send script over to his pharmacy ) Patient has been identified by name and birthdate. Duration of symptoms: N/A Person calling: self Call patient at: at home [phone] (home) [phone] (cell) Was an appointment scheduled: No Closing statement: Results or non-symptom based questions: Thank you for calling [facility], your call will be returned within the next business day. Masha Luna [facility] Work Phone: 12-26-2023 Telephone encounter Note Called and spoke to patient to schedule Primary Care Pharmacy consult on 02/02/2024 (soonest available at [facility]). [facility] 12-26-2023 Miscellaneous Notes Called and spoke to patient to schedule Primary Care Pharmacy consult on 02/02/2024 (soonest available at [facility]). documented in this encounter [facility] 12-13-2023 Telephone encounter Note Order, demographics and office note faxed to [facility] at [phone]. Patient telephoned and notified. Will follow up with [facility]. Patient will call office back if has any further issues. Trevor Hill LPN [facility] 12-13-2023 Miscellaneous Notes Order, demographics and office note [place] [facility] at [phone]. Patient telephoned and notified. Will follow up with [facility]. Patient will call office back if has any further issues. Trevor Hill LPN Derik is calling Juan R Osullivan MD today with concern regarding CPAP order. Patient states that when he was in office a CPAP machine order was to be faxed to [facility]. [facility] has not yet received the order. Patient asking for the order to be faxed to [facility] today. Patient has been identified by name and birthdate. Duration of symptoms: N/A Person calling: self Call patient at: on cell [phone] (home) [phone] (cell) Was an appointment scheduled: No Closing statement: Results or non-symptom based questions: Thank you for calling [facility], your call will be returned within the next business day. Carole Greer documented in this encounter [facility] 12-13-2023 Telephone encounter Note Derik is calling Juan R Osullivan MD today with concern regarding CPAP order. Patient states that when he was in office a CPAP machine order was to be faxed to [facility]. [facility] has not yet received the order. Patient asking for the order to be faxed to [facility] today. Patient has been identified by name and birthdate. Duration of symptoms: N/A Person calling: self Call patient at: on cell [phone] (home) [phone] (cell) Was an appointment scheduled: No Closing statement: Results or non-symptom based questions: Thank you for calling [facility], your call will be returned within the next business day. Carole Greer [facility] 12-05-2023 Instructions PodIndia breen APRN.HONORIO - 12/05/2023 3:15 PM EDT Images from the original note were not included. To schedule a diabetic eye exam at the [facility] [place], please call: [phone] Online resources to learn more https://my.[facility].org/hea lt/diseases/3759-fpdkabre-jturcph athy https://www.diabetes.org/diabetes/ complications/eye-complications https://www.aoa.org/healthy-eyes/e nj-jed-vjtixu-conditions/diabetic- retinopathy?sso=y https://www.[employer] References 1. National Diabetes Statistics Report 2020: Estimates of Diabetes and Its [place] in the [facility]. Center for Disease Control and Prevention; 2020. Available at: https://www.cdc.gov/diabetes/pdfs/ data/statistics/national-diabetes- statistics-report.pdf 2. Estefania Rios, Razia Bush, Bala [place], Kasie Hermosillo, Klarissa Farrell, Red Lewis, Walt Siegel, Madi Genao; Diabetic Retinopathy: A Position Statement by the [place] [employer]. Diabetes Care 22 September 2016; 40 (3): 412-418 documented in this encounter [facility] 12-05-2023 Note HNO ID: [id number] Author: INDIA TAVARES APRN.AIR SURVEILLANCE OPERATOR Service: ? Author Type: Nurse Practitioner Type: Progress Notes Filed: 12/05/2023 16:13 Note Text: 12/05/2023 Patient presents with: Yearly Exam SUBJECTIVE: This is a 58 year old that is here today for Above Complaints. Patient last seen in office on 05/27/2022. Has not taken any of his medications since that time Reports metformin made him have diarrhea. He also tried the extended release which did the same thing. Not checking blood sugars. Admits to polyuria and polydipsia. Inquiring about Jardiance - has a friend on it BP medication made him feel nervous so he quit taking. Does not check BP at home SILVANO: does not use CPAP- reports he has tried for years and he cannot fall asleep with something on his face. Reports Dr. Osullivan wrote order for different mas by he never went to try. PAST MEDICAL HISTORY Diagnosis Date Coronary artery disease Erectile dysfunction Essential hypertension GERD (gastroesophageal reflux disease) Hyperlipidemia Morbid obesity with BMI of 40.0-44.9, adult (HCC) SILVANO (obstructive sleep apnea) severe Seasonal allergies Snoring Type 2 diabetes mellitus without complication, without long-term current use of insulin ([facility] 03/09/2021 ALLERGIES Losartan and Seasonal Allergies MEDICATIONS Current Outpatient Medications Medication Sig Tadalafil (CIALIS) 10 mg tablet Take 1 tablet by mouth as needed (Prior to sexual intercourse). atorvastatin (LIPITOR) 20 mg tablet Take 1 tablet by mouth daily at bedtime. For cholesterol. metFORMIN ER (GLUCOPHAGE XR) 500 mg 24 hr tablet Take 2 tablets by mouth twice daily with meals. lisinopril (ZESTRIL, PRINIVIL) 20 mg tablet Take 1 tablet by mouth once daily. CPAP Initiate Auto PAP @ 5-20 cm of water with humidification. Mask (per patient preference) optional chin strap (if indicated) , filters, tubing, humidifier and lifetime supplies. (Patient not taking: Reported on 12/05/2023) cetirizine-pseudoephedrine (ZYRTEC-D) 5-120 mg per tablet Take 1 tablet by mouth once daily. No current facility-administered medications for this visit. Medications and allergies reviewed by this provider. SOCIAL HISTORY Social History Tobacco Use Smoking status: Never Smokeless tobacco: Never Substance Use Topics Alcohol use: Yes Comment: Occasionally twice per month Drug use: No REVIEW OF SYSTEMS GENERAL: No weight loss, malaise or fevers HEENT: Negative for frequent or significant headaches, No changes in hearing or vision, no nose bleeds or other nasal problems NECK: Negative for lumps, goiter, pain and significant neck swelling RESPIRATORY: Negative for cough, hemoptysis, wheezing, COPD, dyspnea or shortness of breath CARDIOVASCULAR: Negative for chest pain, leg swelling, hypertension, CHF or palpitations GI: No nausea, vomiting, or diarrhea : No history of dysuria, frequency or incontinence MUSCULOSKELETAL: Negative for joint pain or swelling, back pain or muscle pain SKIN: Negative for lesions, rash, and itching PSYCH: Negative for sleep disturbance, mood disorder and recent psychosocial stressors HEMATOLOGY/LYMPHOLOGY: Negative for prolonged bleeding, bruising easily or swollen nodes ENDOCRINE: Negative for cold or heat intolerance, and goiter NEURO: No history of headaches, syncope, paralysis, seizures or tremors All other reviewed and negative other than HPI. OBJECTIVE: BP 128/86 Pulse 85 Resp 18 Wt 119.9 kg (264 lb 6.4 oz) SpO2 96% BMI 39.84 kg/m? . Vital signs reviewed by this provider. APPEARANCE Well appearing, alert, in no acute distress, well-hydrated, well nourished. EYES conjunctiva and sclera normal. NECK Supple, no adenopathy; thyroid symmetric, normal size, no bruits HEART RRR with normal S1 and S2, no murmurs, no gallops, no JVD appreciated LUNG clear to auscultation. No wheezes, rhonchi or rales EXTREMITIES Extremities normal, No deformities, No skin discoloration, No edema, and Normal pulses bilaterally. SKIN Skin color, texture, turgor normal, no suspicious rashes or lesions to exposed skin DM foot exam: shoes and socks removed, No deformities, ulcers, calluses, normal distal pulses, sensitive to 10 gm monofilament, and left great notable for Crumbly, Deformed, Hypertrophic, or Yellowish Pneumococcal Vaccine(1 of 2 - PCV) Never done Dilated Retinal Exam Never done BP Controlled (<130/80) Never done Shingrix Vaccine(1 of 2) Never done Urine Albumin:Creatinine Ratio due on 11/04/2022 HbA1C due on 11/24/2022 Covid-19 Vaccine( season) Never done LDL Cholesterol due on 05/27/2023 Behavioral Health Screening Never done Influenza Vaccine(Season Ended) due on 03/25/2024 Diabetic Foot Exam due on 12/04/2024 Annual PCP Team Chronic Disease Visit due on 12/04/2024 DTaP,Tdap,Td Vaccine(2 - Td or Tdap) due on 05/05/2027 Prostate Cancer Screening Discussion due on 05/27/2027 Col (more content not included)... [facility] 12-05-2023 History of Present illness Narrative 12/05/2023 Patient presents with: Yearly Exam SUBJECTIVE: This is a 58 year old that is here today for Above Complaints. Patient last seen in office on 05/27/2022. Has not taken any of his medications since that time Reports metformin made him have diarrhea. He also tried the extended release which did the same thing. Not checking blood sugars. Admits to polyuria and polydipsia. Inquiring about Jardiance - has a friend on it BP medication made him feel nervous so he quit taking. Does not check BP at home SILVANO: does not use CPAP- reports he has tried for years and he cannot fall asleep with something on his face. Reports Dr. Osullivan wrote order for different mas by he never went to try. PAST MEDICAL HISTORY Diagnosis Date Coronary artery disease Erectile dysfunction Essential hypertension GERD (gastroesophageal reflux disease) Hyperlipidemia Morbid obesity with BMI of 40.0-44.9, adult ([facility]) SILVANO (obstructive sleep apnea) severe Seasonal allergies Snoring Type 2 diabetes mellitus without complication, without long-term current use of insulin ([facility]) 03/09/2021 ALLERGIES Losartan and Seasonal Allergies MEDICATIONS Current Outpatient Medications Medication Sig Tadalafil (CIALIS) 10 mg tablet Take 1 tablet by mouth as needed (Prior to sexual intercourse). atorvastatin (LIPITOR) 20 mg tablet Take 1 tablet by mouth daily at bedtime. For cholesterol. metFORMIN ER (GLUCOPHAGE XR) 500 mg 24 hr tablet Take 2 tablets by mouth twice daily with meals. lisinopril (ZESTRIL, PRINIVIL) 20 mg tablet Take 1 tablet by mouth once daily. CPAP Initiate Auto PAP @ 5-20 cm of water with humidification. Mask (per patient preference) optional chin strap (if indicated) , filters, tubing, humidifier and lifetime supplies. (Patient not taking: Reported on 12/05/2023) cetirizine-pseudoephedrine (ZYRTEC-D) 5-120 mg per tablet Take 1 tablet by mouth once daily. No current facility-administered medications for this visit. Medications and allergies reviewed by this provider. SOCIAL HISTORY Social History Tobacco Use Smoking status: Never Smokeless tobacco: Never Substance Use Topics Alcohol use: Yes Comment: Occasionally twice per month Drug use: No REVIEW OF SYSTEMS GENERAL: No weight loss, malaise or fevers HEENT: Negative for frequent or significant headaches, No changes in hearing or vision, no nose bleeds or other nasal problems NECK: Negative for lumps, goiter, pain and significant neck swelling RESPIRATORY: Negative for cough, hemoptysis, wheezing, COPD, dyspnea or shortness of breath CARDIOVASCULAR: Negative for chest pain, leg swelling, hypertension, CHF or palpitations GI: No nausea, vomiting, or diarrhea : No history of dysuria, frequency or incontinence MUSCULOSKELETAL: Negative for joint pain or swelling, back pain or muscle pain SKIN: Negative for lesions, rash, and itching PSYCH: Negative for sleep disturbance, mood disorder and recent psychosocial stressors HEMATOLOGY/LYMPHOLOGY: Negative for prolonged bleeding, bruising easily or swollen nodes ENDOCRINE: Negative for cold or heat intolerance, and goiter NEURO: No history of headaches, syncope, paralysis, seizures or tremors All other reviewed and negative other than HPI. OBJECTIVE: BP 128/86 Pulse 85 Resp 18 Wt 119.9 kg (264 lb 6.4 oz) SpO2 96% BMI 39.84 kg/m . Vital signs reviewed by this provider. APPEARANCE Well appearing, alert, in no acute distress, well-hydrated, well nourished. EYES conjunctiva and sclera normal. NECK Supple, no adenopathy; thyroid symmetric, normal size, no bruits HEART RRR with normal S1 and S2, no murmurs, no gallops, no JVD appreciated LUNG clear to auscultation. No wheezes, rhonchi or rales EXTREMITIES Extremities normal, No deformities, No skin discoloration, No edema, and Normal pulses bilaterally. SKIN Skin color, texture, turgor normal, no suspicious rashes or lesions to exposed skin DM foot exam: shoes and socks removed, No deformities, ulcers, calluses, normal distal pulses, sensitive to 10 gm monofilament, and left great notable for Crumbly, Deformed, Hypertrophic, or Yellowish Pneumococcal Vaccine(1 of 2 - PCV) Never done Dilated Retinal Exam Never done BP Controlled (<130/80) Never done Shingrix Vaccine(1 of 2) Never done Urine Albumin:Creatinine Ratio due on 11/04/2022 HbA1C due on 11/24/2022 Covid-19 Vaccine( season) Never done LDL Cholesterol due on 05/27/2023 Behavioral Health Screening Never done Influenza Vaccine(Season Ended) due on 03/25/2024 Diabetic Foot Exam due on 12/04/2024 Annual PCP Team Chronic Disease Visit due on 12/04/2024 DTaP,Tdap,Td Vaccine(2 - Td or Tdap) due on 05/05/2027 Prostate Cancer Screening Discussion due on 05/27/2027 Colorectal Cancer Screening due on 09/23/2027 Hepatitis C Screening Completed HIV Screening Completed ASSESSMENT/PLAN: 1. Annual physical exam - ICD9: V70.0, ICD10: Z00.00 (primary diagnosis) - Counseled on healthy diet and regular exercise - Discussed need for and benefit of weight loss. BMI 39.84 kg/(m^2) - Follow up for annual exam in one year 2. Type 2 diabetes mellitus without complication, without long-term current use of insulin (HCC) - ICD9: 250.00, ICD10: E11.9 - Control undetermined, due for labs - Statin prescribed - atorvastatin - Blood glucose monitoring on a twice daily schedule - Counseled on healthy diet and regular exercise - Discussed need for and benefit of weight loss. BMI 39.84 kg/(m^2) - HEMOGLOBIN A1C - ALBUMIN/CREATININE RATIO, URINE - will need to await A!C to determine medication needs - follow-up in 3 months 3. Elevated triglycerides with high cholesterol - ICD9: 272.2, ICD10: E78.2 - Uncontrolled - Restart atorvastatin (Lipitor) - Counseled on healthy diet and regular exercise - Discussed need for and benefit of weight loss. BMI 39.84 kg/(m^2) - Follow up in 3 months, sooner should any other issues arise. - LIPID PANEL BASIC - LDL CHOLESTEROL DIR 4. Essential hypertension - ICD9: 401.9, ICD10: I10 - Uncontrolled - restart lisinopril - Recommend home blood pressure monitoring, to bring results to next visit - Encouraged sodium restriction, DASH or Mediterranean diet - Recommend regular aerobic exercise - Discussed need for and benefit of weight loss. BMI 39.84 kg/(m^2) - Follow up in 3 months for hypertension visit - COMPREHENSIVE METABOLIC PANEL - COMPLETE BLOOD COUNT 5. Hyperlipidemia, mixed - ICD9: 272.2, ICD10: E78.2 - Control undetermined, due for labs - Counseled on healthy diet and regular exercise - Discussed need for and benefit of weight loss. BMI 39.84 kg/(m^2) - Follow up in 3 months, sooner should any other issues arise. - ATORVASTATIN 20 MG TABLET 6. SILVANO (obstructive sleep apnea) - ICD9: 327.23, ICD10: G47.33 - willing to try nasal pillow- [place] [facility] [place] discussed risks of untreated sleep apnea- verbalizes understanding - CPAP DEVICE, WITH HUMIDIFIER 7. Depression screening - ICD9: V79.0, ICD10: Z13.31 - BEHAVIORAL HEALTH SCREENING India Tavares APRN.AIR SURVEILLANCE OPERATOR Prescription instructions reviewed with patient as applicable. Patient advised if symptoms do not improve or if symptoms worsen sooner, to contact their primary care physician. Potential red flag symptoms discussed with the patient. Reviewed appropriate action plan to take if red flag symptoms occur. Patient agreeable to treatment plan. documented in this encounter [facility] 04-12-2023 History of Present illness Narrative 04/12/2023 Patient presents with: Rash I have communicated my name and active licensure. The patient's identity and physical location were verified at the time of this visit. Either the patient or their legal key account representative has been informed of the risks and benefits of -- and alternatives to -- treatment through a remote evaluation and consents to proceed with the evaluation remotely. SUBJECTIVE: This is a 58 year old that is here today for Above Complaints. Developed rash eight days ago after doing some landscaping. Originally on right arm, but has spread to the left arm and now a couple of spots on his left thigh. Has been using caladryl and medicated soap with little relief. Areas are itching PAST MEDICAL HISTORY Diagnosis Date Coronary artery disease Erectile dysfunction Essential hypertension GERD (gastroesophageal reflux disease) Hyperlipidemia Morbid obesity with BMI of 40.0-44.9, adult ([facility]) SILVANO (obstructive sleep apnea) severe Seasonal allergies Snoring Type 2 diabetes mellitus without complication, without long-term current use of insulin ([facility]) 03/09/2021 ALLERGIES Losartan and Seasonal Allergies MEDICATIONS Current Outpatient Medications Medication Sig Tadalafil (CIALIS) 10 mg tablet Take 1 tablet by mouth as needed (Prior to sexual intercourse). atorvastatin (LIPITOR) 20 mg tablet Take 1 tablet by mouth daily at bedtime. For cholesterol. metFORMIN ER (GLUCOPHAGE XR) 500 mg 24 hr tablet Take 2 tablets by mouth twice daily with meals. lisinopril (ZESTRIL, PRINIVIL) 20 mg tablet Take 1 tablet by mouth once daily. CPAP Initiate Auto PAP @ 5-20 cm of water with humidification. Mask (per patient preference) optional chin strap (if indicated) , filters, tubing, humidifier and lifetime supplies. cetirizine-pseudoephedrine (ZYRTEC-D) 5-120 mg per tablet Take 1 tablet by mouth once daily. No current facility-administered medications for this visit. Medications and allergies reviewed by this provider. SOCIAL HISTORY Social History Tobacco Use Smoking status: Never Smokeless tobacco: Never Substance Use Topics Alcohol use: Yes Comment: Occasionally twice per month Drug use: No REVIEW OF SYSTEMS All other reviewed and negative other than HPI. OBJECTIVE: There were no vitals taken for this visit.. Vital signs reviewed by this provider. APPEARANCE Well appearing, alert, in no acute distress, well-hydrated, well nourished. SKIN Forearms with multiple linear areas of vesicles formation without surrounding erythema or drainage Pneumococcal Vaccine(1 - PCV) Never done Dilated Retinal Exam Never done BP Controlled (<130/80) Never done Depression Assessment due on 07/25/2022 Urine Albumin:Creatinine Ratio due on 11/04/2022 Diabetic Foot Exam due on 11/04/2022 HbA1C due on 11/24/2022 Influenza Vaccine(1) due on 03/25/2023 Shingrix Vaccine(1 of 2) due on 05/27/2023 Covid-19 Vaccine(1) due on 05/27/2023 LDL Cholesterol due on 05/27/2023 Annual PCP Team Chronic Disease Visit due on 04/12/2024 DTaP,Tdap,Td Vaccine(2 - Td or Tdap) due on 05/05/2027 Prostate Cancer Screening Discussion due on 05/27/2027 Colorectal Cancer Screening due on 09/23/2027 Hepatitis C Screening Completed HIV Screening Completed ASSESSMENT/PLAN: 1. Irritant contact dermatitis, unspecified trigger - ICD9: 692.9, ICD10: L24.9 - Oral Steriod tx -Prednisone taper - Anti itch therapy of Calomine lotion, Oatmeal baths, and Oral Benydryl recommended prn - discussed skin care of rash - follow up if symptoms persist or worsen. - PREDNISONE 10 MG TABLET- common side effects discussed - follow-up if symptoms fail to improve India Tavares APRN.CNP Prescription instructions reviewed with patient as applicable. Patient advised if symptoms do not improve or if symptoms worsen sooner, to contact their primary care physician. Potential red flag symptoms discussed with the patient. Reviewed appropriate action plan to take if red flag symptoms occur. Patient agreeable to treatment plan. I spent a total of 15 minutes on the date of the service which included preparing to see the patient, [id number] patient care, completing clinical documentation, obtaining and/or reviewing separately obtained history, performing a medically appropriate examination, counseling and educating the patient/family/caregiver, and ordering medications, tests, or procedures. documented in this encounter [facility] 06-22-2022 Miscellaneous Notes Rx for Cialis 10 mg sent to pharmacy. Contact our office if symptoms not improved on this dosage. Patient contacted and states he would like to try the Cialis due to wanting something stronger than Viagra 100 mg. Uses [facility] in [place]. Thank you. He is on 100 mg of viagra which is max dose for this medication. Does he still want the refill? Would he like to try Cialis PRN instead to see if it works better for him? Pt calling and requesting refill of Viagra. He is also asking PCP if he can have a stronger dose? Script pended for review and completion. Please advise patient. Thank you. documented in this encounter [facility] 05-27-2022 History of Present illness Narrative Chief Complaint Patient presents with: Physical HPI Phi Gonzalez is a 57 year old male who presents here today for annual physical. DIABETES MELLITUS: Mr. Gonzalez was last seen 6 months ago. Since our last visit he denies excessive thirst or increased frequency of urination, new or unusual visual symptoms, and low sugar/hypoglycemic reactions. Positive for Neuropathy in 4th and 5th digits of left hand. Follows a diabetic diet generally not very much. He is compliant with medication(s) and is tolerating med(s) with diarrhea/loose stools 3x per day. Does not check sugars at home. Patient's last HgA1C was Hemoglobin A1C (%) Date Value 11/04/2021 6.2 03/06/2021 6.5 10/17/2017 5.9 ) Last Ophthalmology exam was within the past [address] Brandt in [place]. Reports this was normal/negative. Last Podiatry exam was within the past 12 months HTN: Mr. Gonzalez indicates that he is feeling well and denies any symptoms referable to elevated blood pressure. Specifically denies headache, chest pain, palpitations, dyspnea, and peripheral edema. Patient admits to having side effects of stomach aches with losartan. He does not check BP's generally. 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 He watches his diet for sodium, low fat and low cholesterol generally not very much. Last 3 Encounter BP Readings: Date: BP: 05/27/2022 150/78 11/04/2021 149/94 07/21/2021 140/78 SILVANO: Patient has auto pap at home and has not been using consistently because he still feels uncomfortable wearing his full face mask. Discussed trial of nasal pillows or nasal mask. PHQ-2 / Depression screen He in the past two weeks denies having felt down, depressed, hopeless or with little interest or pleasure in doing things. Has cysts on corners of his eyes for the last couple of months without pain or drainage. Would like flu shot today. Past medical history, appointments, medications, allergies reviewed. Previous Medical History PAST MEDICAL HISTORY Diagnosis Date Coronary artery disease Erectile dysfunction GERD (gastroesophageal reflux disease) Hyperlipidemia Morbid obesity with BMI of 40.0-44.9, adult ([facility]) SILVANO (obstructive sleep apnea) severe Prediabetes Seasonal allergies Snoring Type 2 diabetes mellitus without complication, without long-term current use of insulin ([facility]) 03/09/2021 Previous Surgical History PAST SURGICAL HISTORY Procedure Laterality Date COLONOSCOPY FLX DX W/COLLJ SPEC WHEN PFRMD 09/22/2017 Colonoscopy ENDOSCOPIC EXCISION N-P MASS 11/10/2017 excision cyst mass colon Family History FAMILY HISTORY Adopted: Yes Family history unknown: Yes Patient Allergies ALLERGIES Allergen Reactions Seasonal Allergies Other: See Comments Watery eyes, cough, and stuffy nose Current Medications Current Outpatient Medications on File Prior to Visit Medication Sig losartan (COZAAR) 25 mg tablet Take 1 tablet by mouth once daily. (Patient taking differently: Take 25 mg by mouth once daily. Taking once weekly per patient-) metFORMIN (GLUCOPHAGE) 500 mg tablet Take 1 tablet by mouth daily with breakfast. atorvastatin (LIPITOR) 20 mg tablet Take 1 tablet by mouth daily at bedtime. For cholesterol. sildenafil (VIAGRA) 100 mg tablet Take 1 tablet by mouth as needed (sexual intercourse). CPAP Initiate Auto PAP @ 5-20 cm of water with humidification. Mask (per patient preference) optional chin strap (if indicated) , filters, tubing, humidifier and lifetime supplies. cetirizine-pseudoephedrine (ZYRTEC-D) 5-120 mg per tablet Take 1 tablet by mouth once daily. fluticasone (FLONASE) 50 mcg/actuation nasal spray Use 1 [place] in each nostril once daily. (Patient not taking: Reported on 07/21/2021 ) No current facility-administered medications on file prior to visit. Social History Social History Tobacco Use Smoking status: Never Smokeless tobacco: Never Substance Use Topics Alcohol use: Yes Comment: Occasionally once per month Drug use: No Review of Symptoms REVIEW OF SYSTEMS GENERAL: No weight loss, malaise or fevers HEENT: Negative for frequent or significant headaches, No changes in hearing or vision, no nose bleeds or other nasal problems NECK: Negative for lumps, goiter, pain and significant neck swelling RESPIRATORY: Negative for cough, hemoptysis, wheezing, COPD, dyspnea or shortness of breath CARDIOVASCULAR: Negative for chest pain, leg swelling, hypertension, CHF or palpitations GI: No nausea, vomiting : No history of dysuria, frequency or incontinence, No difficulty urinating, nocturia > 1 time per night or hematuria MUSCULOSKELETAL: Negative for joint pain or swelling, back pain or muscle pain SKIN: See HPI EXAM: BP 150/78 Pulse 89 Resp 16 Ht 173.5 cm (5' 8.31) Wt 125.5 kg (276 lb 9.6 oz) SpO2 96% BMI 41.68 kg/m General Appearance: Well appearing, alert, in no acute distress, well-hydrated, well nourished.. Skin: Cysts on lateral corner of eyes bilaterally Head: Normocephalic, no masses, lesions, tenderness or abnormalities. Eyes: Anicteric sclera. Pupils are equally round and reactive to light. Extraocular movements are intact. . Ears: External ears normal, canals clear. Oropharynx: Lips, mucosa, and tongue normal, and Positive findings: Tonsills 2+ chronically with mild erythema. Broken molars on left lower jaw without infection or drainage. Neck: Supple, no adenopathy; thyroid symmetric, normal size, no bruits. Lungs: Lungs clear to auscultation. No wheezing, rhonchi, rales.. Heart: RRR without murmur, gallop, or rubs. No ectopy. Abdomen: Normal abdominal exam, Abdomen soft, non-tender. Bowel sounds normal. No masses, organomegaly. Extremities: No deformities, edema, skin discoloration, clubbing or cyanosis. Good capillary refill. Health Maintenance List HEPATITIS B(1 of 3 - 3-dose series) Never done COVID-19 VACCINE(1) Never done DILATED RETINAL EXAM Never done HIV SCREENING Never done SHINGRIX VACCINE(1 of 2) Never done DEPRESSION ASSESSMENT Never done LDL CHOLESTEROL due on 03/06/2022 INFLUENZA(1) due on 03/25/2022 HBA1C due on 05/06/2022 PROSTATE CANCER SCREENING DISCUSSION due on 05/05/2022 PNEUMOCOCCAL(1 - PCV) due on 07/21/2022 URINE ALBUMIN:CREATININE RATIO due on 11/04/2022 DIABETIC FOOT EXAM due on 11/04/2022 ANNUAL PCP TEAM CHRONIC DISEASE VISIT due on 11/04/2022 DTAP,TDAP,TD(2 - Td or Tdap) due on 05/05/2027 COLORECTAL CANCER SCREENING due on 09/23/2027 HEPATITIS C SCREENING Completed Data reviewed Component Latest Ref Rng & Units 03/06/2021 11/04/2021 Protein, Total 6.3 - 8.0 g/dL 7.5 7.8 Albumin 3.9 - 4.9 g/dL 3.7 (L) 4.1 Calcium 8.5 - 10.2 mg/dL 9.4 9.5 Bilirubin, Total 0.2 - 1.3 mg/dL 0.2 0.5 Alkaline Phosphatase 38 - 113 U/L 66 74 AST 14 - 40 U/L 19 22 Glucose 74 - 99 mg/dL 122 (H) 139 (H) BUN 9 - 24 mg/dL 16 17 Creatinine 0.73 - 1.22 mg/dL 0.94 0.97 Sodium 136 - 144 mmol/L 138 137 Potassium 3.7 - 5.1 mmol/L 4.1 3.8 Chloride 97 - 105 mmol/L 104 101 CO2 22 - 30 mmol/L 25 24 Anion Gap 9 - 18 mmol/L 9 12 ALT 10 - 54 U/L 21 18 eGFR- >60 eGFR-All Other Races . >60 eGFR >=60 mL/min/1.73m 91 Cholesterol, Total <200 mg/dL 198 Triglyceride <150 mg/dL 139 HDL Cholesterol >39 mg/dL 28 (L) LDL Cholesterol <100 mg/dL 142 (H) Non HDL Cholesterol <130 mg/dL 170 (H) Fasting Time hrs 12 VLDL Cholesterol <30 mg/dL 28 TC:HDL Ratio <5.10 7.07 (H) LDL:HDL Ratio <2.54 5.07 (H) Creatinine, Ur Random (UCRR) 20.0 - 300.0 mg/dL 269.5 Albumin, Urine Random mg/L 28.6 Albumin/Creat Ratio <30 mg/g 11 Hemoglobin A1C 4.3 - 5.6 % 6.5 (H) 6.2 (H) Estimated Average Glucose mg/dL 140 131 ASSESSMENT/PLAN: 1. Annual physical exam - ICD9: V70.0, ICD10: Z00.00 (primary diagnosis) - Counseled on healthy diet and regular exercise - Discussed need for and benefit of weight loss. BMI 41.68 kg/(m^2) - Counseled on limiting alcohol intake to 2 drinks per day - Depression screening tool completed and reviewed with patient. Based on score and interview, patient is not at risk for depression and recommended no further intervention at this time. - Follow up for annual exam in one year - DEPRESSION SCREENING/ASSESSMENT 2. Essential hypertension - ICD9: 401.9, ICD10: I10 - poor control - Add lisinopril (Zestril/Prinivil) - Discontinue losartan(Cozaar) - Encouraged dietary sodium restriction/DASH diet - Recommended regular aerobic exercise. - Follow up in 2 weeks for BP recheck. - Reviewed risks of HTN and principles of treatment - Goal of BP <140/90 - LISINOPRIL 20 MG TABLET 3. Type 2 diabetes mellitus without complication, without long-term current use of insulin (HCC) - ICD9: 250.00, ICD10: E11.9 Controlled. - Continue current medications - Encouraged regular aerobic exercise and weight loss - Daily Asprin therapy recommended - Follow up in 6 months, sooner should any other issues arise. - Discussed diabetic education issues of predatory animal exterminator diabetic complications, hypoglycemic symptoms, hyperglycemic symptoms, diet, medications- side effects and need for compliance, importance of exercise, and importance of annual examinations with Opthalmology with patient. - CBC - COMP METABOLIC PANEL - HGB A1C - METFORMIN ER 500 MG TABLET,EXTENDED RELEASE 24 HR 4. SILVANO (obstructive sleep apnea) - ICD9: 327.23, ICD10: G47.33 Having difficulty with full face mask. Will give rx for new supplies and he can try nasal mask/pillow. If not working, will refer to sleep medicine. 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 Discussed contacting optho for further evaluation and applying warm compresses. 6. Gastroesophageal reflux disease, unspecified whether esophagitis present - ICD9: 530.81, ICD10: K21.9 - Discussed lifestyle modifications including losing weight, limiting caffeine, no meals three hours before sleep, and head of bed elevation 7. Morbid obesity with BMI of 40.0-44.9, adult (HCC) - ICD9: 278.01, V85.41, ICD10: E66.01, Z68.41 Weight increasing - Behavioral intervention 8. Pure hypercholesterolemia - ICD9: 272.0, ICD10: E78.00 check - LIPID PANEL, NONFASTING 9. Erectile dysfunction, unspecified erectile dysfunction type - ICD9: 607.84, ICD10: N52.9 Continue viagra PRN. 10. Seasonal allergies - ICD9: 477.9, ICD10: J30.2 Continue zyrtec PRN. 11. Need for influenza vaccination - ICD9: V04.81, ICD10: Z23 - INFLUENZA VACCINE QUADRIVALENT 6 MO - 64 YRS IM 12. Screening for HIV (human immunodeficiency virus) - ICD9: V73.89, ICD10: Z11.4 - HIV 1 2 COMBO(AG/AB),WITH REFLEX TO DIFFERENTIATION 13. Screening for prostate cancer - ICD9: V76.44, ICD10: Z12.5 Denies symptoms of BPH. No known family history. No need for PSA at this time. Juan R Osullivan MD documented in this encounter [facility] 11-06-2021 Miscellaneous Notes Patient notified and voiced his understanding. Patient telephoned. Message left to call back for update. Trevor Hill LPN Please call patient and let him know A1c hs improved- continue current medication, diet and exercise. The rest of his blood work and his urine is normal. India Tavares APRN.HONORIO documented in this encounter [facility] 11-04-2021 History of Present illness Narrative 11/04/2021 Patient presents with: Diabetes Physical SUBJECTIVE: This is a 56 year old that is here today for Above Complaints. . DIABETES MELLITUS: Mr. Gonzalez was last seen on 03/23/2022. Since our last visit he denies excessive thirst or increased frequency of urination, chest pain or dyspnea , numbness, tingling or pain in extremities, new or unusual visual symptoms, low sugar/hypoglycemic reactions, weight loss/gain, lightheadedness/dizziness and bowel changes/loose stools. Follows a diabetic diet most of the time. He is compliant with medication(s) and is tolerating med(s) without any side effects. He reports checking his glucose on a infrequent to not at all basis schedule Patient's last HgA1C was Hemoglobin A1C (%) Date Value 03/06/2021 6.5 10/17/2017 5.9 ) Last Ophthalmology exam scheduled SILVANO: doesn't use as often as he should- uses it once every week. Doesn't like how it feels over his mouth and face. BP elevated today on arrival BP w/Orthostatic Vitals Date and Time Orthostatic BP Orthostatic Pulse BP Pulse BP Position BP Site BP Cuff Size 11/04/21 1350 -- -- 149/94 88 -- -- -- 11/04/21 1312 -- -- 140/88 87 -- -- -- Peak Flow Date and Time PF Resp 11/04/21 1312 -- 18 PAST MEDICAL HISTORY Diagnosis Date Coronary artery disease Erectile dysfunction GERD (gastroesophageal reflux disease) Hyperlipidemia Morbid obesity with BMI of 40.0-44.9, adult ([facility]) SILVANO (obstructive sleep apnea) severe Prediabetes Seasonal allergies Snoring Type 2 diabetes mellitus without complication, without long-term current use of insulin ([facility]) 03/09/2021 ALLERGIES Seasonal Allergies MEDICATIONS Current Outpatient Medications Medication Sig metFORMIN (GLUCOPHAGE) 500 mg tablet Take 1 tablet by mouth daily with breakfast. atorvastatin (LIPITOR) 20 mg tablet Take 1 tablet by mouth daily at bedtime. For cholesterol. sildenafil (VIAGRA) 100 mg tablet Take 1 tablet by mouth as needed (sexual intercourse). CPAP Initiate Auto PAP @ 5-20 cm of water with humidification. Mask (per patient preference) optional chin strap (if indicated) , filters, tubing, humidifier and lifetime supplies. cetirizine-pseudoephedrine (ZYRTEC-D) 5-120 mg per tablet Take 1 tablet by mouth once daily. fluticasone (FLONASE) 50 mcg/actuation nasal spray Use 1 [place] in each nostril once daily. (Patient not taking: Reported on 07/21/2021 ) No current facility-administered medications for this visit. Medications and allergies reviewed by this provider. SOCIAL HISTORY Social History Tobacco Use Smoking status: Never Smoker Smokeless tobacco: Never Used Substance Use Topics Alcohol use: Yes Comment: Occasionally once per month Drug use: No REVIEW OF SYSTEMS All other reviewed and negative other than HPI. OBJECTIVE: BP 149/94 Pulse 88 Resp 18 Wt 121.7 kg (268 lb 3.2 oz) SpO2 96% BMI 40.78 kg/m . Vital signs reviewed by this provider. APPEARANCE Well appearing, alert, in no acute distress, well-hydrated, well nourished. EYES PERRLA, conjunctiva and sclera normal. HEART RRR with normal S1 and S2, no murmurs, no gallops, no JVD appreciated LUNG clear to auscultation. No wheezes, rhonchi, or rales EXTREMITIES Extremities normal, No deformities, No skin discoloration, No edema and Normal pulses bilaterally. SKIN Skin color, texture, turgor normal, no suspicious rashes or lesions to exposed skin DM foot exam: shoes and socks removed, No deformities, ulcers, calluses, normal distal pulses and sensitive to 10 gm monofilament Component Latest Ref Rng & Units 03/06/2021 Protein, Total 6.3 - 8.0 g/dL 7.5 Albumin 3.9 - 4.9 g/dL 3.7 (L) Calcium 8.5 - 10.2 mg/dL 9.4 Bilirubin, Total 0.2 - 1.3 mg/dL 0.2 Alkaline Phosphatase 38 - 113 U/L 66 AST 14 - 40 U/L 19 Glucose 74 - 99 mg/dL 122 (H) BUN 9 - 24 mg/dL 16 Creatinine 0.73 - 1.22 mg/dL 0.94 Sodium 136 - 144 mmol/L 138 Potassium 3.7 - 5.1 mmol/L 4.1 Chloride 97 - 105 mmol/L 104 CO2 22 - 30 mmol/L 25 Anion Gap 9 - 18 mmol/L 9 ALT 10 - 54 U/L 21 eGFR- >60 eGFR-All Other Races . >60 Cholesterol, Total <200 mg/dL 198 Triglyceride <150 mg/dL 139 HDL Cholesterol >39 mg/dL 28 (L) LDL Cholesterol <100 mg/dL 142 (H) Non HDL Cholesterol <130 mg/dL 170 (H) Fasting Time hrs 12 VLDL Cholesterol <30 mg/dL 28 TC:HDL Ratio <5.10 7.07 (H) LDL:HDL Ratio <2.54 5.07 (H) Hemoglobin A1C 4.3 - 5.6 % 6.5 (H) Estimated Average Glucose mg/dL 140 COVID-19 VACCINE(1) Never done URINE ALBUMIN:CREATININE RATIO Never done DILATED RETINAL EXAM Never done SHINGRIX VACCINE(1 of 2) Never done HBA1C due on 09/06/2021 HIV SCREENING due on 03/06/2022 ONE PNEUMOVAX PRIOR TO AGE 65 due on 07/21/2022 LDL CHOLESTEROL due on 03/06/2022 DEPRESSION SCREENING due on 03/06/2022 INFLUENZA(Season Ended) due on 03/25/2022 PROSTATE CANCER SCREENING DISCUSSION due on 05/05/2022 DIABETIC FOOT EXAM due on 11/04/2022 ANNUAL PCP TEAM CHRONIC DISEASE VISIT due on 11/04/2022 DTAP,TDAP,TD(2 - Td or Tdap) due on 05/05/2027 COLORECTAL CANCER SCREENING due on 09/23/2027 HEPATITIS C SCREENING Completed MENINGOCOCCAL CONJUGATE Aged Out ASSESSMENT/PLAN: 1. Type 2 diabetes mellitus without complication, without long-term current use of insulin (HCC) - ICD9: 250.00, ICD10: E11.9 (primary diagnosis) Controlled. - Continue current medications - Blood glucose monitoring on a every other day schedule - Follow up in 6 months, sooner should any other issues arise. - BP goal of <130/80 - LDL goal of <100 - ALBUMIN/CREAT RATIO RND UR - HGB A1C - COMP METABOLIC PANEL 2. Hypertension, essential - ICD9: 401.9, ICD10: I10 - newly diagnosed - Begin losartan(Cozaar) - Encouraged dietary sodium restriction/DASH diet - Recommended regular aerobic exercise. - Recommend home blood pressure monitoring, to bring results in on next visit - Discussed need and benefit for weight loss. - Recheck in 2 weeks, sooner should new symptoms or problems arise. - Goal of BP <130/80 - Recommended no refined sugar, low refined starch, healthy oil intake (olive oil), healthy protein (fish) along the lines of the Mediterranean diet. - LOSARTAN 25 MG TABLET 3. SILVANO (obstructive sleep apnea) - ICD9: 327.23, ICD10: G47.33 - encouraged to work up to wearing nightly India Tavares APRN.CNP Prescription instructions reviewed with patient as applicable. Patient advised if symptoms do not improve or if symptoms worsen sooner, to contact their primary care physician. Potential red flag symptoms discussed with the patient. Reviewed appropriate action plan to take if red flag symptoms occur. Patient agreeable to treatment plan. documented in this encounter [facility] Evaluation note Diagnosis Type 2 diabetes mellitus without complication, without long-term current use of insulin (HCC)- Primary Hypertension, essential Unspecified essential hypertension SILVANO (obstructive sleep apnea) Obstructive sleep apnea (adult) (pediatric) [facility] Diagnosis Annual physical exam- Primary Routine general medical examination at a health care facility Essential hypertension Unspecified essential hypertension Type 2 diabetes mellitus without complication, without long-term current use of insulin (HCC) SILVANO (obstructive sleep apnea) Obstructive sleep apnea (adult) (pediatric) Hydrocystoma Benign neoplasm of skin, site unspecified Gastroesophageal reflux disease, unspecified whether esophagitis present Morbid obesity with BMI of 40.0-44.9, adult (HCC) Morbid obesity Pure hypercholesterolemia Erectile dysfunction, unspecified erectile dysfunction type Seasonal allergies Allergic rhinitis, cause unspecified Need for influenza vaccination Need for prophylactic vaccination and inoculation against influenza Screening for HIV (human immunodeficiency virus) Special screening examination for other specified viral diseases Screening for prostate cancer Special screening for malignant neoplasm of prostate documented in this encounter [facility] note* Diagnosis Skin tag Unspecified hypertrophic and atrophic condition of skin documented in this encounter [facility] note* Diagnosis Irritant contact dermatitis, unspecified trigger- Primary documented in this encounter [facility] note* Diagnosis Annual physical exam- Primary Routine general medical examination at a health care facility Type 2 diabetes mellitus without complication, without long-term current use of insulin (HCC) Elevated triglycerides with high cholesterol Mixed hyperlipidemia Essential hypertension Unspecified essential hypertension Hyperlipidemia, mixed Mixed hyperlipidemia SILVANO (obstructive sleep apnea) Obstructive sleep apnea (adult) (pediatric) Depression screening Screening for depression documented in this encounter [facility] note* Diagnosis Type 2 diabetes mellitus with hyperglycemia, unspecified whether jail insulin use (HCC)- Primary documented in this encounter [facility] note* Diagnosis Type 2 diabetes mellitus with hyperglycemia, unspecified whether jail insulin use (HCC)- Primary documented in this encounter [facility] note* Diagnosis Type 2 diabetes mellitus with hyperglycemia, unspecified whether predatory animal exterminator insulin use (HCC)- Primary documented in this encounter [facility] note* Diagnosis Type 2 diabetes mellitus with hyperglycemia, unspecified whether predatory animal exterminator insulin use (HCC) documented in this encounter [facility] note* Diagnosis Acute constipation- Primary Unspecified constipation Essential (primary) hypertension Unspecified essential hypertension Gastro-esophageal reflux disease without esophagitis Esophageal reflux Type 2 diabetes mellitus without complication, unspecified whether predatory animal exterminator insulin use (HCC) Acute constipation Unspecified constipation documented in this encounter [facility] note* Diagnosis Acute constipation Unspecified constipation documented in this encounter [facility] for visit Narrative* Diagnostic Procedure Only (Urgent) - Closed Specialty Diagnoses / Procedures Referred By Contac t Referred To Contact XR IMAGING Diagnoses Acute constipation Procedures XR ABDOMEN 2V ROUTINE SUPINE W UPRIGHT/DECUB/CTL RADIOLOGIC EXAM ABDOMEN 2 VIEWS Ingrid Saravia APRN.AIR SURVEILLANCE OPERATOR [id number] [facility] [place] [address] Phone: tel: fax: [place] [phone] Referral ID Status Reason Start Date Expiration Date V isits Requested Visits Authorized [id number] Closed Auto-Generate d Referral 03/15/2025 04/14/2026 1 1 [facility] Advance Directives Documents on File Type Date Recorded 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 Advance Directive(s) 11/10/2017 6:35 AM Advance Directive(s) 09/22/2017 7:48 AM Advance Directive(s) 09/14/2017 2:30 PM Summary Purpose Family History No Family History Records FoundNo Family History Records FoundNo Family History Records Found Additional Source Comments Source Comments (unrecognize d section and content) In the event this informatio n is protected by the Federal Confidentiality of Alcohol and Drug Abuse Patient Records regulations: The Federal rules restrict any use of the information to criminally investigate or prosecute any alcohol or drug abuse patient.[facility] the event this information is protected by the Federal Confidentiality of Alcohol and Drug Abuse Patient Records regulations: The Federal rules restrict any use of the information to criminally investigate or prosecute any alcohol or drug abuse patient.[facility] the event this information is protected by the Federal Confidentiality of Alcohol and Drug Abuse Patient Records regulations: The Federal rules restrict any use of the information to criminally investigate or prosecute any alcohol or drug abuse patient.[facility] the event this information is protected by the Federal Confidentiality of Alcohol and Drug Abuse Patient Records regulations: The Federal rules restrict any use of the information to criminally investigate or prosecute any alcohol or drug abuse patient.[facility] the event this information is protected by the Federal Confidentiality of Alcohol and Drug Abuse Patient Records regulations: The Federal rules restrict any use of the information to criminally investigate or prosecute any alcohol or drug abuse patient.[facility] the event this information is protected by the Federal Confidentiality of Alcohol and Drug Abuse Patient Records regulations: The Federal rules restrict any use of the information to criminally investigate or prosecute any alcohol or drug abuse patient.[facility] the event this information is protected by the Federal Confidentiality of Alcohol and Drug Abuse Patient Records regulations: The Federal rules restrict any use of the information to criminally investigate or prosecute any alcohol or drug abuse patient.[facility] the event this information is protected by the Federal Confidentiality of Alcohol and Drug Abuse Patient Records regulations: The Federal rules restrict any use of the information to criminally investigate or prosecute any alcohol or drug abuse patient.[facility] the event this information is protected by the Federal Confidentiality of Alcohol and Drug Abuse Patient Records regulations: The Federal rules restrict any use of the information to criminally investigate or prosecute any alcohol or drug abuse patient.[facility] the event this information is protected by the Federal Confidentiality of Alcohol and Drug Abuse Patient Records regulations: The Federal rules restrict any use of the information to criminally investigate or prosecute any alcohol or drug abuse patient.[facility] the event this information is protected by the Federal Confidentiality of Alcohol and Drug Abuse Patient Records regulations: The Federal rules restrict any use of the information to criminally investigate or prosecute any alcohol or drug abuse patient.[facility] Hospital[facility] the event this information is protected by the Federal Confidentiality of Alcohol and Drug Abuse Patient Records regulations: The Federal rules restrict any use of the information to criminally investigate or prosecute any alcohol or drug abuse patient.[facility] the event this information is protected by the Federal Confidentiality of Alcohol and Drug Abuse Patient Records regulations: The Federal rules restrict any use of the information to criminally investigate or prosecute any alcohol or drug abuse patient.[facility] HospitalIn the event this information is protected by the Federal Confidentiality of Alcohol and Drug Abuse Patient Records regulations: The Federal rules restrict any use of the information to criminally investigate or prosecute any alcohol or drug abuse patient.[facility] HospitalIn the event this information is protected by the Federal Confidentiality of Alcohol and Drug Abuse Patient Records regulations: The Federal rules restrict any use of the information to criminally investigate or prosecute any alcohol or drug abuse patient.[facility] HospitalIn the event this information is protected by the Federal Confidentiality of Alcohol and Drug Abuse Patient Records regulations: The Federal rules restrict any use of the information to criminally investigate or prosecute any alcohol or drug abuse patient.[facility] HospitalIn the event this information is protected by the Federal Confidentiality of Alcohol and Drug Abuse Patient Records regulations: The Federal rules restrict any use of the information to criminally investigate or prosecute any alcohol or drug abuse patient.[facility] HospitalIn the event this information is protected by the Federal Confidentiality of Alcohol and Drug Abuse Patient Records regulations: The Federal rules restrict any use of the information to criminally investigate or prosecute any alcohol or drug abuse patient.[facility] HospitalIn the event this information is protected by the Federal Confidentiality of Alcohol and Drug Abuse Patient Records regulations: The Federal rules restrict any use of the information to criminally investigate or prosecute any alcohol or drug abuse patient.[facility] HospitalIn the event this information is protected by the Federal Confidentiality of Alcohol and Drug Abuse Patient Records regulations: The Federal rules restrict any use of the information to criminally investigate or prosecute any alcohol or drug abuse patient.[facility] HospitalIn the event this information is protected by the Federal Confidentiality of Alcohol and Drug Abuse Patient Records regulations: The Federal rules restrict any use of the information to criminally investigate or prosecute any alcohol or drug abuse patient.[facility] HospitalIn the event this information is protected by the Federal Confidentiality of Alcohol and Drug Abuse Patient Records regulations: The Federal rules restrict any use of the information to criminally investigate or prosecute any alcohol or drug abuse patient.[facility] HospitalIn the event this information is protected by the Federal Confidentiality of Alcohol and Drug Abuse Patient Records regulations: The Federal rules restrict any use of the information to criminally investigate or prosecute any alcohol or drug abuse patient.[facility] HospitalIn the event this information is protected by the Federal Confidentiality of Alcohol and Drug Abuse Patient Records regulations: The Federal rules restrict any use of the information to criminally investigate or prosecute any alcohol or drug abuse patient.[facility] Reason for Visit (unrecogniz ed section and content) Reason Comments Diabetes Physical Reason Comments Results Reason Onset Date Comments Physical Immunizations 05/27/2022 Flu vaccination Specialty Diagnoses / Procedures Referred By Contac t Referred To Contact Family Medicine / FAMILY MEDICINE Diagnoses My a1c and general overall health Procedures [facility] Pcp, Juan R Ascencio MD [address] [place] [address] Referral ID Status Reason Start Date Expiration Date V isits Requested Visits Authorized [id number] Pending Review 05/04/2022 08/02/2022 1 1 Reason Onset Date Comments Refill Request 06/22/2022 Reason Comments Erroneous encounter-disregard Reason Comments Rash Reason Comments Yearly Exam Reason Comments CPAP order Reason Comments Appointment Primary Care Pharmac y Reason Comments Medication Problem Patient states that the insulin pen needles were not sent to the pharmacy. Please send script over to his pharmacy Reason Comments Missed Appointment Pharmacy Visit Stephany eduling Reason Comments Lab Orders Reason Onset Date Comments Refill Request 04/17/2024 Reason Onset Date Comments Refill Request 05/07/2024 Reason Onset Date Comments Refill Request 05/28/2024 Reason Comments Orders Reason Comments requesting refill that is Reason Onset Date Comments Refill Request 09/19/2024 Reason Comments Diabetes Specialty Diagnoses / Procedures Referred By Contac t Referred To Contact Diagnoses Type 2 diabetes mellitus with hyperglycemia, unspecified whether predatory animal exterminator insulin use (HCC) Procedures CONSULT TO DIABETES EDUCATION DSME/MNT MEDICAL NUTRITION ASSMT&IVNTJ INDIV EACH 15 [place] MEDICAL NUTRITION ASSMT&IVNTJ INDIV EACH 15 [place] MEDICAL NUTRITION ASSMT&IVNTJ INDIV EACH 15 [place] MEDICAL NUTRITION ASSMT&IVNTJ INDIV EACH 15 [place] [employer] breen APRN.AIR SURVEILLANCE OPERATOR [address] [place] [address] Phone: tel: fax: Endocrinology [address] [place] [address] Phone: tel: Referral ID Status Reason Start Date Expiration Date V isits Requested Visits Authorized [id number] Closed PCP Requested Referral 12/23/2023 12/22/2024 1 1 Reason Comments Constipation X9 days, used mag ci trate w/o relief Care Teams (unrecognized sec tion and content) Application Chemist Relationship Specialty Start Date End Date Juan R Osullivan MD [address], [place] [id number] PCP - General Family Practice 05/05/17 Application Chemist Relationship Specialty Start Date End Date Juan R Osullivan MD [address] [place], [place] [id number] PCP - General Family Practice 05/05/17 Application Chemist Relationship Specialty Start Date End Date Juan R Osullivan MD [address], [place] [id number] PCP - General Family Medicine 05/05/17 Application Chemist Relationship Specialty Start Date End Date Juan R Osullivan MD [address] [facility] [place] [address] PCP - General Family Medicine 05/05/17 Application Chemist Relationship Specialty Start Date End Date Juan R Osullivan MD [address] [facility] [place] [address] PCP - General Family Medicine 05/05/17 Application Chemist Relationship Specialty Start Date End Date Juan R Osullivan MD [address] [facility] [place] [address] PCP - General Family Medicine 05/05/17 Application Chemist Relationship Specialty Start Date End Date Juan R Osullivan MD [address] [facility] [place] [address] PCP - General Family Medicine 05/05/17 Application Chemist Relationship Specialty Start Date End Date Juan R Osullivan MD [address] [facility] [place] [address] PCP - General Family Medicine 05/05/17 Application Chemist Relationship Specialty Start Date End Date Juan R Osullivan MD [address] [facility] [place] [address] PCP - General Family Medicine 05/05/17 Application Chemist Relationship Specialty Start Date End Date Juan R Osullivan MD [address] [facility] [place] [address] PCP - General Family Medicine 05/05/17 Application Chemist Relationship Specialty Start Date End Date Juan R Osullivan MD [address] [facility] [place] [address] PCP - General Family Medicine 05/05/17 Application Chemist Relationship Specialty Start Date End Date Juan R Osullivan MD [address] [facility] [place] [address] PCP - General Family Medicine 05/05/17 Application Chemist Relationship Specialty Start Date End Date Juan R Osullivan MD [address] [facility] [place] [address] PCP - General Family Medicine 05/05/17 Application Chemist Relationship Specialty Start Date End Date Juan R Osullivan MD [address] [facility] [place] [address] PCP - General Family Medicine 05/05/17 Application Chemist Relationship Specialty Start Date End Date Juan R Osullivan MD [address] [place] [address] PCP - General Family Medicine 05/05/17 Application Chemist Relationship Specialty Start Date End Date Juan R Osullivan MD [address] [place] [address] PCP - General Family Medicine 05/05/17 [employer] APRN.AIR SURVEILLANCE OPERATOR [address] [facility] [place] [address] Electrical Helper Family Medicine 06/30/24 Application Chemist Relationship Specialty Start Date End Date Juan R Osullivan MD [address] [facility] [place] [address] PCP - General Family Medicine 05/05/17 [employer], ANDRES Osborne.AIR SURVEILLANCE OPERATOR [address] [facility] [place] [address] [facility] 06/30/24 Karla Almonte APRN.AIR SURVEILLANCE OPERATOR [address] [place] [address] [facility] 10/15/24 Application Chemist Relationship Specialty Start Date End Date Juan R Osullivan MD [address] [facility] [place] [address] PCP - General Family Medicine 05/05/17 [employer] PATIENT SERVICE TECHNICIAN PST.AIR SURVEILLANCE OPERATOR [address] [place] [address] [facility] 06/30/24 Karla Almonte APRN.AIR SURVEILLANCE OPERATOR [address] [place] [address] [facility] 10/15/24 Application Chemist Relationship Specialty Start Date End Date Juan R Osullivan MD [address] [facility] [place] [address] PCP - General Family Medicine 05/05/17 [employer] PATIENT SERVICE TECHNICIAN PST.AIR SURVEILLANCE OPERATOR [address] [place] [address] [facility] 06/30/24 Karla Almonte PATIENT SERVICE TECHNICIAN PST.AIR SURVEILLANCE OPERATOR [address] [facility] [place] [address] [facility] 01/03/25 Application Chemist Relationship Specialty Start Date End Date Juan R Osullivan MD [address] [facility] [place] [address] PCP - General Family Medicine 05/05/17 India Tavares, PATIENT SERVICE TECHNICIAN PST.AIR SURVEILLANCE OPERATOR [address] [place], [place] [address] [facility] 06/30/24 Karla Almonte APRN.AIR SURVEILLANCE OPERATOR [address] [place], [place] [id number] [facility] 01/03/25 (unrecognized sect ion and content) No Status Records FoundNo Status Records FoundNo Status Records Found INFORMATION SOURCE (unrecogn ized section and content) DATE CREATED AUTHOR 12/26/2023 [facility] DATE CREATED AUTHOR AUTHOR'S ORGANIZ ATION 03/10/2024 [facility] DATE CREATED AUTHOR AUTHOR'S ORGANIZ ATION 11/26/2024 [facility] FOR RECORDS PERTAINING TO PATIENTS WHO ARE OR HAVE BEEN ENROLLED IN A CHEMICAL DEPENDENCY/SUBSTANCEABUSE PROGRAM, SOME INFORMATION MAY BE OMITTED. This clinical summary was aggregated from multiple sources. Caution should be exercised in using it in the provision of clinical care. This summary normalizes information from multiple sources, and as a consequence, information in this document may materially change the coding, format and clinical context of patient data. In addition, data may be omitted in some cases. CLINICAL DECISIONS SHOULD BE BASED ON THE PRIMARY CLINICAL RECORDS. [facility]. provides no warranty or guarantee of the accuracy or completeness of information in this document.
[2025-03-17 12:27] VITALS: BP 134/84; PULSE 96; RESP 18; TEMP 36.9; O2SAT 98
--- OUTSIDE RECORDS SUMMARY | 2025-03-17 12:38 | XMS RPT_ITS | CCD ---
Author Organization [facility] Care Team Providers Care Centerless Grinder Set Up Operator Name Role Phone Juan R Osullivan MD Primary Care Provider Referred, Self Attending Unavailable Referred, Self Attending Unavailable Juan R Osullivan MD Primary Care Provider Podlogar SHIPPER RECEIVER.India OLMEDO Unavailable [place]le SHIPPER RECEIVER.Karla OLMEDO Unavailable PODLOGAR, [place] Referring Unavailable JUAN R OSULLIVAN Primary Care Unavailab le PODLOGAR, [place] Attending Unavailable JUAN R OSULLIVAN Primary Care Unavailab le [place]le SHIPPER RECEIVER.Karla OLMEDO Unavailable Allergies Allergy Classification Reported Allergen(s) Allergy Type Date of Onset Reaction(s) Facility Angiotensin 2 Receptor Blockers (ARB) (1 source) Losartan Drug Allergy 2 GI Upset [facility] Work Phone: (20 sources) Seasonal allergy; Translations: [SEASONAL ALLERGIES] Allergy to substance 7 Other: See [facility] (20 sources) Losartan; Translations: [LOSARTAN] Drug Allergy 2 GI Upset [facility] Work Phone: (1 source) ALLERGIES NOT ON FILE; Translations: [ALLERGIES NOT ON FILE] Propensity to adverse reactions (disorder) [facility] Medications Current Medications Medication Drug Class(es) Dates [...] 2 diabetes mellitus with hyperglycemia, unspecified whether residential insulin use (HCC) Take 1 tablet by [...] inge th once daily. polyethylene glycol 3350 90243 mg powder for oral solution (1 source) [...] (FLONASE) 50 mcg/actuation nasal spray Use 1 [place] in each nostril once daily. 0 05/27/2022 Discontinued Comment on above: Use 1 [place] in each nostril once daily. losartan potassium [...] 03-15-2025 IMPRESSION: Moderate to large stool burden. Package Clerk: MAYELIN Transcribe Date/Time: Mar 15 2025 2:49P [...] Degenerative spine changes. DIVISION OF RADIOLOGY Provider, [facility] [place] - 03/15/2025 * * *Final Report* * [...] IMPRESSION IMPRESSION: Moderate to large stool burden. Package Clerk: MAYELIN Transcribe Date/Time: Mar 15 2025 2:49P Dictated by : RAUL YUSUF MD This examination was interpreted and the report reviewed and electronically signed by: RAUL YUSUF MD on Mar 15 2025 2:49PM EST [facility] Radiology Study observation (narrative) [facility] XR Abdomen Supine and Uprigh tOrdered By: Cc Provider on 03-15-2025 [facility] Steven 11-14-2024 CNPN Telephone (FAMPWS) PHI GONZALEZ ([id number]) 1965 M Date Time Provider Department 11/14/24 [...] Encounter Status:Closed by JESSICA WYNN on 11/14/24 [facility] 10-18-2024 CNNURSE Nurse Visit (EDEDSJ) PHI GONZALEZ ([id number]) 1965 M Date Time Provider Department 10/18/24 3:00 PM DANIELE MCKEON During your visit today, we recorded the following information about you: Daniele Mckeon RN 10/18/2024 6:00 PM Signed DIABETES SELF-MANAGEMENT EDUCATION AND SUPPORT [facility] Type of visit: Virtual (with video) individual I have communicated my name and active licensure. The patient's identity and physical location were verified at the time of this visit. 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 Normal [facility] Steven 08-29-2024 CNPN Telephone (FAMPWS) LISAPHI ([id number]) 1965 M Date Time Provider Department 08/29/24 [...] Encounter Status:Closed by JESSICA WYNN on 08/29/24 [facility] 06-27-2024 CNPN Telephone (FAMPWS) PHI GONZALEZ ([id number]) 1965 M Date Time Provider Department 06/27/24 JUAN R OSULLIVAN During your visit today, we recorded the following information about you: India Miller 06/27/2024 9:53 AM Signed Derik is calling Juan R Osullivan MD today to request an order for labs for his upcoming appointment. Please send a message in Correlor when labs are ordered. TY Patient has been identified by name and birthdate. Duration of symptoms: N/A Person calling: self Call patient at: at home [phone] (home) [phone] (cell) Was an appointment scheduled: No Closing statement: Results or non-symptom based questions: Thank you for calling [facility], your call will be returned within the next business day. Juan R Meng MD 06/27/2024 11:27 AM Signed Labs ordered to be completed 1-2 days prior to OV. Anthony Curran RN 06/27/2024 11:56 AM Signed [employer] msg sent to pt as requested. Allergies As of Date: 06/27/2024 Noted Allergy Reaction LOSARTAN 05/27/2022 8 - GI Upset SEASONAL ALLERGIES 05/05/2017 14 - Other: See Comments Comments: Watery eyes, cough, and stuffy nose Date Reviewed: 12/05/2023 Reviewed by: Trevor Hill LPN - Fully Assessed Reason for Visit: Orders [681] Primary Visit Diagnosis:Type 2 diabetes mellitus with hyperglycemia, unspecified whether residential insulin use (HCC) [E11.65] Order(s):ALBUMIN/CRE ATININE RATIO, URINE [SQUACR] Order #: [id number] FUTURE COMPREHENSIVE METABOLIC PANEL [SQCMP] Order #: [id number] FUTURE HEMOGLOBIN A1C [VZQXM0X] Order #: [id number] FUTURE COMPLETE BLOOD COUNT AND DIFFERENTIAL [SQCBCDIF] Order #: [id number] FUTURE LIPID PANEL, NONFASTING [SQLIPNF] Order #: [id number] FUTURE Prescriptions as of 06/27/2024 - empagliflozin [...] Status:Closed by ANTHONY CURRAN on 06/27/24 Normal [facility] CNCOon 05-07-2024 CNCO Letter Text Normal [facility] CNPNon 03-06-2024 CNPN Telephone (FAMPWS) PHI GONZALEZ ([id number]) 1965 M Date Time Provider Department 03/06/24 [facility]AN R [facility]ULLIVAN [facility] During your visit today, we recorded the following information about you: Daniele Cortez 03/06/2024 8:43 AM Signed Patient called to request lab orders for his upcoming follow up appt with Dr. Osullivan. Please call him at [phone] when placed. Juan R Osullivan MD 03/06/2024 10:06 AM Signed Labs ordered. Come in this week to have them done so we can review at his appointment. Iliana Irving LPN 03/06/2024 10:26 AM Signed Phoned patient left message to return call and ask to speak to a nurse. Yudi Pimentel MA 03/09/2024 10:51 AM Signed [employer] message sent to pt notifying him we [...] 2 diabetes mellitus with hyperglycemia, unspecified whether residential insulin use (HCC) [E11.65] Order(s):COMPLETE BLOOD COUNT AND DIFFERENTIAL [SQCBCDIF] Order #: [id number] FUTURE COMPREHENSIVE METABOLIC PANEL [SQCMP] Order #: [id number] FUTURE HEMOGLOBIN A1C [[id number]] Order #: [id number] FUTURE ALBUMIN/CREATININE RATIO, URINE [SQUACR] Order #: [id number] FUTURE LIPID PANEL, NONFASTING [SQLIPNF] Order #: [id number] FUTURE Prescriptions as of 03/12/2024 - empagliflozin [...] Encounter Status:Closed by JESSICA WYNN on 03/12/24 [facility] Steven 02-02-2024 [facility] Telephone (PHMEWO) PHI GONZALEZ ([id number]) 1965 M Date Time Provider Department 02/02/24 [...] Charisse Nguyen, PharmD, BCACP Primary Care Clinical Ssrs Report Developer 02/02/2024 3:57 PM Madi Regan 02/02/2024 5:06 PM Signed Telephoned the patient regarding missed appt. Left a message. First attempt. Jennifer Regan HUC 02/03/2024 9:35 AM Addendum Telephoned the patient to schedule a new Primary Care pharmacy appt. Left a message.Second attempt. Made two attempts to contact the patient. Patient was sent [employer] message. If the patient returns a call, an appt will be scheduled. Madi Regan 02/09/2024 10:26 AM Signed Patient has not responded to outreach attempts via phone or [facility]. Two attempts to contact have been made. Routing to [facility]. Allergies As of Date: 02/02/2024 Noted [...] Encounter Status:Closed by [facility]ADI REG[facility] Tele[facility] (NANCY) PHI GONZALEZ ([id number]) 1965 M Date Time Provider Department 01/27/24 [...] calling: self Call patient at: at home [phone] (home) [phone] (cell) Was an appointment scheduled: No Closing statement: Results or non-symptom based questions: Thank you for calling [facility], your call will be returned within [...] Status:Closed by JESSICA WYNN on 01/27/24 Normal [facility] Steven 12-26-2023 CNPN Telephone (PHARMN) PHI GONZALEZ ([id number]) 1965 M Date Time Provider Department 12/26/23 PHARMACIST PHARMN During your visit today, we recorded the following information about you: McconnellHemalatha Dodge 12/26/2023 10:26 AM Signed Called and spoke to patient to schedule Primary Care Pharmacy consult on 02/02/2024 (soonest available at [facility]). Allergies As of Date: 12/26/2023 Noted [...] Status:Closed by HEMALATHA DELANEY on 12/26/23 Normal [facility] Albumin/Creatinineon 30-2 024 Albumin/Creatinine DL <= 20 mg/L (U) [Mass ratio] 6.2 ug/mg Creat Normal <30.0 [facility] Comment on above: Performed By: #### 1 4959-1 #### TAO Loza ([id number]) [facility] ([facility]) [address] [place] [address] 79890 Albumin/Creatinine DL <= 20 mg/L (U) [Mass ratio]on 12-22-2023 Albumin DL <= 20 mg/L (U) [Mass/Vol] 10.2 mg/L Normal Not established [facility] Comment on above: Performed By: #### 1 4959-1 #### TAO Loza ([id number]) [facility] ([facility]) [address] [place] [address] 14850 Creatinine (U) [Mass/Vol] 163.9 mg/dL Normal 20.0-370.0 [facility] Comment on above: Performed By: #### 1 4959-1 #### TAO Loza ([id number]) [facility] ([facility]) [address] [place] [address] 03927 CBC W Auto Differential pane l (Bld)on 12-22-2023 Basophils (Bld) [#/Vol] 0.06 x10*3/uL Normal 0.00-0.10 [facility] Comment on above: Performed By: #### 5 7021-8 #### ISABEL MENDEZ ([id number]) [facility] ([facility]) [address] [place] [address] 97839 Basophils/100 WBC (Bld) 0.9 % Normal 0.0-2.0 [facility] Comment on above: Performed By: #### 5 7021-8 #### ISABEL MENDEZ ([id number]) [facility] ([facility]) [address] [place] [address] 47399 Eosinophils (Bld) [#/Vol] 0.27 x10*3/uL Normal 0.00-0.70 [facility] Comment on above: Performed By: #### 5 7021-8 #### ISABEL MENDEZ ([id number]) [facility] ([facility]) [address] [place] [address] 27674 Eosinophils/100 WBC (Bld) 4.1 % Normal 0.0-6.0 [facility] Comment on above: Performed By: #### 5 7021-8 #### ISABEL MENDEZ ([id number]) [facility] ([facility]) [address] [place] [address] 08979 Erythrocyte distribution width (RBC) [Ratio] 12.1 % Normal 11.5-14.5 [facility] Comment on above: Performed By: #### 5 7021-8 #### ISABEL MENDEZ ([id number]) [facility] ([facility]) [address] [place] [address] Hematocrit (Bld) [Volume fraction] 46.0 % Normal 41.0-52.0 [facility] Comment on above: Performed By: #### 5 7021-8 #### ISABEL MENDEZ ([id number]) [facility] ([facility]) [address] [place] [address] Hemoglobin (Bld) [Mass/Vol] 15.3 g/dL Normal 13.5-17.5 [facility] Comment on above: Performed By: #### 5 7021-8 #### ISABEL MENDEZ ([id number]) [facility] ([facility]) [address] [place] [address] 33335 Immature granulocytes (Bld) [#/Vol] 0.02 x10*3/uL Normal 0.00-0.70 [facility] Comment on above: Performed By: #### 5 7021-8 #### ISABEL MENDEZ ([id number]) [facility] ([facility]) [address] [place] [address] 51709 Immature granulocytes/100 WBC (Bld) 0.3 % Normal 0.0-0.9 [facility] Comment on above: Result Comment: Debra ture Granulocyte Count (IG) includes promyelocytes, myelocytes and metamyelocytes but does not include bands. Percent differential counts (%) should be interpreted in the context of the absolute cell counts (cells/UL). Performed By: #### 5 7021-8 #### ISABEL MENDEZ ([id number]) [facility] ([facility]) [address] [place] [address] 17194 Lymphocytes (Bld) [#/Vol] 2.00 x10*3/uL Normal 1.20-4.80 [facility] Comment on above: Performed By: #### 5 7021-8 #### ISABEL MENDEZ ([id number]) [facility] ([facility]) [address] [place] [address] 54579 Lymphocytes/100 WBC (Bld) 30.4 % Normal 13.0-44.0 [facility] Comment on above: Performed By: #### 5 70-8 #### ISABEL MENDEZ ([id number]) [facility] ([facility]) [address] [place] [address] 93500 MCH (RBC) [Entitic mass] 28.9 pg Normal 26.0-34.0 [facility] Comment on above: Performed By: #### 5 7021-8 #### ISABEL MENDEZ ([id number]) [facility] ([facility]) [address] [place] [address] 12077 MCHC (RBC) [Mass/Vol] 33.3 g/dL Normal 32.0-36.0 [facility] Comment on above: Performed By: #### 5 7021-8 #### ISABEL MENDEZ ([id number]) [facility] ([facility]) [address] [place] [address] 90739 MCV (RBC) [Entitic vol] 87 fL Normal 80-100 [facility] Comment on above: Performed By: #### 5 7021-8 #### ISABEL MENDEZ ([id number]) [facility] ([facility]) [address] [place] [address] 49221 Monocytes (Bld) [#/Vol] 0.35 x10*3/uL Normal 0.10-1.00 [facility] Comment on above: Performed By: #### 5 7021-8 #### ISABEL MENDEZ ([id number]) [facility] ([facility]) [address] [place] [address] 74769 Monocytes/100 WBC (Bld) 5.3 % Normal 2.0-10.0 [facility] Comment on above: Performed By: #### 7021-8 #### ISABEL MENDEZ ([id number]) [facility] ([facility]) [address] [place] [address] 63564 Neutrophils (Bld) [#/Vol] 3.87 x10*3/uL Normal 1.20-7.70 [facility] Comment on above: Result Comment: Perc ent differential counts (%) should be interpreted in the context of the absolute cell counts (cells/uL). Performed By: #### 5 7021-8 #### ISABEL MENDEZ ([id number]) [facility] ([facility]) [address] [place] [address] 99624 Neutrophils/100 WBC (Bld) 59.0 % Normal 40.0-80.0 [facility] Comment on above: Performed By: #### 5 7021-8 #### ISABEL MENDEZ ([id number]) [facility] ([facility]) [address] [place] [address] 00787 Nucleated RBC/100 WBC (Bld) [Ratio] 0.0 /100 WBCs Normal 0.0-0.0 [facility] Comment on above: Performed By: #### 5 7021-8 #### ISABEL MENDEZ ([id number]) [facility] ([facility]) [address] [place] [address] 54610 Platelets (Bld) [#/Vol] 272 x10*3/uL Normal 150-450 [facility] Comment on above: Performed By: #### 5 7021-8 #### ISABEL MENDEZ ([id number]) [facility] ([facility]) [address] [place] [address] 16334 RBC (Bld) [#/Vol] 5.30 x10*6/uL Normal 4.50-5.90 [facility] Comment on above: Performed By: #### 5 7021-8 #### ISABEL MENDEZ ([id number]) [facility] ([facility]) [address] [place] [address] 34078 WBC (Bld) [#/Vol] 6.6 x10*3/uL Normal 4.4-11.3 [facility] Comment on above: Performed By: #### 5 7021-8 #### ISABEL MENDEZ ([id number]) [facility] ([facility]) [address] [place] [address] Cholesterol in LDL Direct as say [Mass/Vol]on 12-22-2023 Cholesterol in LDL [Mass/Vol] 110 mg/dL Normal 0-129 [facility] Comment on above: Order Comment: [place] felicia levels of LDL cholesterol are recognized as a [place] factor in the development of atherosclerosis and CHD. The direct LDL cholesterol test can be used to assess cardiovascular risk and monitor therapy as a follow up to a lipid profile when triglycerides are significantly elevated. Performed By: #### 1 8262-6 #### TAO Loza ([id number]) [facility] ([facility]) [address] [place] [address] Comprehensive metabolic 2000 panelon 12-22-2023 Albumin BCP dye [Mass/Vol] 3.9 g/dL Normal 3.4-5.0 [facility] Comment on above: Performed By: #### 2 4323-8 #### ISABEL MENDEZ ([id number]) [facility] ([facility]) [address] [place] [address] 47521 ALP [Catalytic activity/Vol] 56 U/L Normal 33-120 [facility] Comment on above: Performed By: #### 2 4323-8 #### ISABEL MENDEZ ([id number]) [facility] ([facility]) [address] [place] [address] 21194 ALT With P-5'-P [Catalytic activity/Vol] 22 U/L Normal 10-52 [facility] Comment on above: Result Comment: Ofelia ents treated with Sulfasalazine may generate falsely decreased results for ALT. Performed By: #### 2 4323-8 #### ISABEL MENDEZ ([id number]) [facility] ([facility]) [facility] [place] [address] Anion gap [Moles/Vol] 11 mmol/L Normal 10-20 [facility] Comment on above: Performed By: #### 2 4323-8 #### ISABEL MENDEZ (08059) [facility] ([facility]) [facility] [place] [address] AST With P-5'-P [Catalytic activity/Vol] 14 U/L Normal 9-39 [facility] Comment on above: Performed By: #### 2 4323-8 #### ISABEL MENDEZ ([id number]) [facility] ([facility]) [address] [place] [address] Bilirubin [Mass/Vol] 0.7 mg/dL Normal 0.0-1.2 [facility] Comment on above: Performed By: #### 2 4323-8 #### ISABEL MENDEZ ([id number]) [facility] ([facility]) [address] [place] [address] 12836 Calcium [Mass/Vol] 9.1 mg/dL Normal 8.6-10.3 [facility] Comment on above: Performed By: #### 2 4323-8 #### ISABEL MENDEZ ([id number]) [facility] ([facility]) [address] [place] [address] 68106 Chloride [Moles/Vol] 103 mmol/L Normal 98-107 [facility] Comment on above: Performed By: #### 2 4323-8 #### ISABEL MENDEZ ([id number]) [facility] ([facility]) [address] [place] [address] CO2 [Moles/Vol] 26 mmol/L Normal 21-32 [facility] Comment on above: Performed By: #### 2 4323-8 #### ISABEL MENDEZ ([id number]) [facility] ([facility]) [address] [place] [address] 73134 Creatinine [Mass/Vol] 0.87 mg/dL Normal 0.50-1.30 [facility] Comment on above: Performed By: #### 2 4323-8 #### ISABEL MENDEZ (85924) [facility] ([facility]) [address] [place] [address] 50666 GFR/1.73 sq M.predicted MDRD (S/P/Bld) [Vol rate/Area] mL/min/{1.73_m2} Normal >60 [facility] Comment on above: Result Comment: Calc ulations of estimated GFR are performed using the 2021 CKD-EPI Study Refit equation without the race variable for the IDMS-Traceable creatinine methods. https://jasn.asnjournals.org/content//ASN.98351473 88 Performed By: #### 2 4323-8 #### ISABEL MENDEZ (20925) [facility] ([facility]) [address] [place] [address] 40653 Glucose [Mass/Vol] 217 mg/dL High 74-99 [facility] Comment on above: Performed By: #### 2 4323-8 #### ISABEL MENDEZ ([id number]) [facility] ([facility]) [address] [place] [address] 09882 Potassium [Moles/Vol] 3.8 mmol/L Normal 3.5-5.3 [facility] Comment on above: Performed By: #### 2 3-8 #### ISABEL MENDEZ ([id number]) [facility] ([facility]) [address] [place] [address] 75229 Protein [Mass/Vol] 7.1 g/dL Normal 6.4-8.2 [facility] Comment on above: Performed By: #### 2 4323-8 #### ISABEL MENDEZ ([id number]) [facility] ([facility]) [address] [place] [address] 64707 Sodium [Moles/Vol] 136 mmol/L Normal 136-145 [facility] Comment on above: Performed By: #### 2 4323-8 #### ISABEL MENDEZ (99862) [facility] ([facility]) [address] [place] [address] 35553 Urea nitrogen [Mass/Vol] 15 mg/dL Normal 6-23 [facility] Comment on above: Performed By: #### 2 4323-8 #### ISABEL MENDEZ ([id number]) [facility] ([facility]) [address] [place] [address] 48360 HbA1c (Bld) [Mass fraction]o n 12-22-2023 Average glucose Estimated from glycated hemoglobin (Bld) [Mass/Vol] 278 mg/dL Normal Not Established [facility] Comment on above: Order Comment: Diagn osis of Diabetes-Adults Non-Diabetic: < or = 5.6% Increased risk for developing diabetes: 5.7-6.4% Diagnostic of diabetes: > or = 6.5% Monitoring of Diabetes Age (y)....................... Therapeutic Goal (%) Adults: >18.........................<7.0 Pediatrics: 13-18...................<7.5 Pediatrics: 7-12....................<8.0 Pediatrics: 0-6..................... 7.5-8.5 [place] [employer]. Diabetes Care 33(S1), Jul 2009 Performed By: #### 4 548-4 #### HALL ANDREA (33244) [facility] ([facility]) [address] [place] [address] Hemoglobin A1c/Hemoglobin.to yamileth 12-22-2023 HbA1c (Bld) [Mass fraction] 11.3 % High see below [facility] Comment on above: Order Comment: Diagn osis of Diabetes-Adults Non-Diabetic: < or = 5.6% Increased risk for developing diabetes: 5.7-6.4% Diagnostic of diabetes: > or = 6.5% Monitoring of Diabetes Age (y)....................... Therapeutic Goal (%) Adults: >18.........................<7.0 Pediatrics: 13-18...................<7.5 Pediatrics: 7-12....................<8.0 Pediatrics: 0-6..................... 7.5-8.5 [place] [employer]. Diabetes Care 33(S1), Jul 2009 Performed By: #### 4 548-4 #### ISABEL MENDEZ (19588) [facility] ([facility]) [facility] [place] [address] Lipid 1996 panelon 4 Cholesterol [Mass/Vol] 155 mg/dL Normal 0-199 [facility] Comment on above: Result Comment: Age [...] By: #### 2 4331-1 #### ISABEL MENDEZ (38405) [facility] ([facility]) [facility] [place] [address] Cholesterol in HDL [Mass/Vol] 32.0 mg/dL Normal [facility] Comment on above: Result Comment: Age Very Low Low Normal High 0-19 Y < 35 < 40 40-45 ---- 20-24 Y ---- < 40 >45 ---- >24 Y ---- < 40 40-60 >60 Performed By: #### 2 4331-1 #### ISABEL MENDEZ ([id number]) [facility] ([facility]) [facility] [place] [address] Cholesterol in LDL [Mass/Vol] 86 mg/dL Normal <=99 [facility] Comment on above: Result Comment: Near Borderline AGE Desirable Optimal High High Very High 0-19 Y 0 - 109 --- 110-129 >/= 130 ---- 20-24 Y 0 - 119 --- 120-159 >/= 160 ---- >24 Y 0 - 99 100-129 130-159 160-189 >/=190 Performed By: #### 2 4331-1 #### ISABEL MENDEZ (12434) [facility] ([facility]) [address] [place] [address] 36221 Cholesterol in VLDL [Mass/Vol] 37 mg/dL Normal 0-40 [facility] Comment on above: Performed By: #### 2 4331-1 #### ISABEL MENDEZ ([id number]) [facility] ([facility]) [address] [place] [address] 70309 CHOLESTEROL/HDL RATIO 4.8 Normal [facility] Comment on above: Result Comment: Ref Values Desirable < 3.4 High Risk > 5.0 Performed By: #### 2 4331-1 #### ISABEL MENDEZ (55571) [facility] ([facility]) [address] [place] [id number] NON HDL CHOLESTEROL 123 mg/dL Normal 0-149 [facility] Comment on above: Result Comment: Age Desirable Borderline High High Very High 0-19 Y 0 - 119 120 - 144 >/= 145 >/= 160 20-24 Y 0 - 149 150 - 189 >/= 190 ---- >24 Y 30 mg/dL above LDL Cholesterol goal Performed By: #### 2 4331-1 #### ISABEL MENDEZ ([id number]) [facility] ([facility]) [address] [place] [id number] Triglyceride [Mass/Vol] 186 mg/dL High 0-149 [facility] Comment on above: Result Comment: Age [...] By: #### 2 4331-1 #### ISABEL MENDEZ ([id number]) [facility] ([facility]) [address] [id number] [facility] CNPN Telephone (FAMPWS) PHI GONZALEZ ([id number]) 1965 M Date Time Provider Department 12/13/23 JUAN R OSULLIVAN During your visit today, we recorded the following information about you: Carole Greer 12/13/2023 11:53 AM Signed Derik is calling Juan R Osullivan MD today with concern regarding CPAP order. Patient states that when he was in office a CPAP machine order was to be faxed to [employer]. [facility] has not yet received the order. Patient asking for the order to be faxed to [employer] today. Patient has been identified by name and birthdate. Duration of symptoms: N/A Person calling: self Call patient at: on cell [phone] (home) [phone] (cell) Was an appointment scheduled: No Closing statement: Results or non-symptom based questions: Thank you for calling [facility], your call will be returned within the next business day. Trevor Tdiwell LPN 12/13/2023 1:24 PM Signed Order, demographics and office note faxed to [employer] at [phone]. Patient telephoned and notified. Will follow up with [employer]. Patient will call office back if has [...] Essential hypertension [I10] 05/27/2022 Encounter Status:Closed by TRVEOR HILL on 12/13/23 [facility] 12-05-2023 [facility] Office Visit ([facility]) PHI GONZALEZ ([id number]) 1965 M Date Time Provider Department 12/05/23 [...] Morbid obesity with BMI of 40.0-44.9, adult ([facility]) SILVANO (obstructive sleep apnea) severe Seasonal allergies Snoring Type 2 diabetes mellitus without complication, without long-term current use of insulin ([facility]) 03/09/2021 ALLERGIES Losartan and Seasonal Allergies MEDICATIONS [...] done I (more content not included)... Normal [facility] CBC panel Auto (Bld)on 05-27 Erythrocyte distribution width (RBC) [Ratio] 12.2 % 11.5 - 15.0 % [facility] Hematocrit (Bld) [Volume fraction] 50.3 % 39.0 - 51.0 % [facility] Hemoglobin (Bld) [Mass/Vol] 16.8 g/dL 13.0 - 17.0 g/dL [facility] MCH (RBC) [Entitic mass] 29.4 pg 26.0 - 34.0 pg [facility] MCHC (RBC) [Mass/Vol] 33.4 g/dL 30.5 - 36.0 g/dL [facility] MCV (RBC) [Entitic vol] 88.1 fL 80.0 - 100.0 fL [facility] Nucleated RBC (Bld) [#/Vol] <0.01 k/uL [facility] Platelet mean volume (Bld) [Entitic vol] 9.4 fL 9.0 - 12.7 fL [facility] Platelets (Bld) [#/Vol] 274 10*3/uL 150 - 400 k/uL [facility] RBC (Bld) [#/Vol] 5.71 10*6/uL 4.20 - 6.00 m/uL [facility] WBC (Bld) [#/Vol] 10.76 10*3/uL 3.70 - 11 .00 k/uL [facility] Vital Signs Date Time Vital Sign Value Performing Clinician Scar nicole 03-15-2025 14:14-0400 Body mass index (BMI) [Ratio] 39.03 kg/m2 Ingrid Saravia APRN.CNP Work Phone: [facility] 03-15-2025 14:140400 Body temperature 97.81 [degF] Ingrid Saravia APRN.PACKAGE CHECKER Work Phone: [facility] 03-15-2025 14:14040 Body weight 117.5 kg Ingrid Saravia APRN.CNP Work Phone: [facility] 03-15-2025 14:140400 Diastolic blood pressure 100 mm[Hg] Ingrid Saravia APRN.CNP Work Phone: [facility] 03-15-2025 14:14-0400 Heart rate 79 /min Ingrid Saravia SHIPPER RECEIVER.PACKAGE CHECKER Work Phone: [facility] 03-15-2025 14:14-0400 Respiratory rate 18 /min Ingrid Saravia SHIPPER RECEIVER.PACKAGE CHECKER Work Phone: [facility] 03-15-2025 14:14-0400 SaO2% (BldA) [Mass fraction] 99 % Ingrid Saravia SHIPPER RECEIVER.PACKAGE CHECKER Work Phone: [facility] 03-15-2025 14:14-0400 Systolic blood pressure 151 mm[Hg] Ingrid Saravia SHIPPER RECEIVER.PACKAGE CHECKER Work Phone: [facility] 12-05-2023 14:47-0400 Body mass index (BMI) [Ratio] 39.84 kg/m2 India Podlogar SHIPPER RECEIVER.PACKAGE CHECKER Work Phone: [facility] 12-05-2023 14:47-0400 Body weight 119.93 kg India Podlogar SHIPPER RECEIVER.PACKAGE CHECKER Work Phone: [facility] 12-05-2023 14:47-0400 Diastolic blood pressure 86 mm[Hg] India Podlogar SHIPPER RECEIVER.PACKAGE CHECKER Work Phone: [facility] 12-05-2023 14:47-0400 Heart rate 85 /min India Podlogar SHIPPER RECEIVER.PACKAGE CHECKER Work Phone: [facility] 12-05-2023 14:47-0400 Respiratory rate 18 /min India Podlogar SHIPPER RECEIVER.PACKAGE CHECKER Work Phone: [facility] 12-05-2023 14:47-0400 SaO2% (BldA) [Mass fraction] 96 % India Podlogar SHIPPER RECEIVER.PACKAGE CHECKER Work Phone: [facility] 12-05-2023 14:47-0400 Systolic blood pressure 128 mm[Hg] India Podlogar SHIPPER RECEIVER.PACKAGE CHECKER Work Phone: [facility] 05-27-2022 13:23-0400 Body height 173.5 cm Juan R Osullivan MD Work Phone: [facility] 05-27-2022 13:23-0400 Body weight 125.47 kg Juan R Osullivan MD Work Phone: [facility] 05-27-2022 13:23-0400 Diastolic blood pressure 78 mm[Hg] Juan R Osullivan MD Work Phone: [facility] 05-27-2022 13:23-0400 Heart rate 89 /min Juan R Osullivan MD Work Phone: [facility] 05-27-2022 13:23-0400 Respiratory rate 16 /min Juan R Osullivan MD Work Phone: [facility] 05-27-2022 13:23-0400 SaO2% (BldA) [Mass fraction] 96 % Juan R Osullivan MD Work Phone: [facility] 05-27-2022 13:23-0400 Systolic blood pressure 150 mm[Hg] Juan R Osullivan MD Work Phone: [facility] 11-04-2021 13:50-0400 Diastolic blood pressure 94 mm[Hg] India Podlogar SHIPPER RECEIVER.PACKAGE CHECKER Work Phone: [facility] 11-04-2021 13:50-0400 Heart rate 88 /min India Podlogar SHIPPER RECEIVER.PACKAGE CHECKER Work Phone: [facility] 11-04-2021 13:50-0400 Systolic blood pressure 149 mm[Hg] India Podlogar SHIPPER RECEIVER.PACKAGE CHECKER Work Phone: [facility] 11-04-2021 13:12-0400 Body weight 121.66 kg India Podlogar SHIPPER RECEIVER.PACKAGE CHECKER Work Phone: [facility] 11-04-2021 13:12-0400 Respiratory rate 18 /min India Podlogar SHIPPER RECEIVER.PACKAGE CHECKER Work Phone: [facility] 11-04-2021 13:12-0400 SaO2% (BldA) [Mass fraction] 96 % India Podlogar SHIPPER RECEIVER.PACKAGE CHECKER Work Phone: [facility] Encounters Encounter Date Encounter Type Care Provider Facility Start: 03-15-2025 End: 03-15-2025 Patient encounter procedure Ingrid Saravia SHIPPER RECEIVER.PACKAGE CHECKER Work Phone: [facility] Comment on above: Acute constipation ( Primary Dx); Essential (primary) hypertension; Gastro-esophageal reflux disease without esophagitis; Type 2 diabetes mellitus without complication, unspecified whether predatory animal exterminator insulin use (HCC) Start: 03-15-2025 End: 03-15-2025 Subsequent hospital visit by physician [facility] Work Phone: Radiology Comment on above: Acute constipation [ K59.00] Start: 10-18-2024 End: 10-18-2024 Nursing evaluation of patient and report Daniele Mckeon RN Work Phone: Di[facility] Comment on above: Type 2 diabetes jayme itus with hyperglycemia, unspecified whether predatory animal exterminator insulin use (HCC) Start: 10-18-2024 End: 10-18-2024 ambulatory Daniele Mckeon RN Work Phone: [facility] Comment on above: contact information Start: 10-18-2024 End: 10-18-2024 E-mail encounter from caregiver Daniele Mckeon RN Work Phone: [facility] Start: 09-19-2024 End: 09-20-2024 Refill [...] Refill Juan R Osullivan MD Work Phone: [facility] Comment on above: Refill Request Start: 04-17-2024 End: 04-17-2024 Refill Juan R Osullivan MD Work Phone: [facility] Comment on above: Refill Request Start: 03-06-2024 End: 03-12-2024 Patient Msg [facility] Provider [facility] Comment on above: Need lab orders Lab Orders Start: 03-04-2024 ambulatory Self Referred Facility: [facility] Start: 02-22-2024 End: 02-22-2024 ambulatory Self Referred Facility:[facility] Start: 02-14-2024 E-mail encounter virginia baumann caregiver Charisse Wendy [facility] Work Phone: [facility] Start: 02-14-2024 Patient encounter procedure Charissehernandez Nguyen [facility] Work Phone: [facility] Comment on above: Primary Care Pharmac ist Visit Start: 02-02-2024 Telephone encounter Charissehernandez Nguyen [facility] Work Phone: [facility] Comment on above: Missed Appointment ( Pharmacy Visit Rescheduling) Start: 01-27-2024 Telephone encounter India cast SHIPPER RECEIVER.PACKAGE CHECKER Work Phone: [facility] Comment on above: Medication Problem ( Patient states that the insulin pen needles were not sent to the pharmacy. Please send script over to his pharmacy ) Start: 12-26-2023 Telephone encounter Pharmacist [facility] Comment on above: Appointment (Primary Care Pharmacy) Start: 12-22-2023 End: 12-22-2023 ambulatory [facility] Start: 12-13-2023 Telephone encounter Pepe Osullivan MD Work Phone: [facility] Comment on above: CPAP order Start: 12-05-2023 End: 12-05-2023 ambulatory INDIA PODLOGAR Facility:[facility] Start: 12-05-2023 End: 12-05-2023 Patient encounter procedure India Tavares APRN.PACKAGE CHECKER Work Phone: [facility] Comment on above: Annual physical exam (Primary Dx); Type 2 diabetes mellitus without complication, without long-term current use of insulin (HCC); Elevated triglycerides with high cholesterol; Essential hypertension; Hyperlipidemia, mixed; SILVANO (obstructive sleep apnea); Depression screening Start: 04-12-2023 End: 04-12-2023 ambulatory India Tavares APRN.PACKAGE CHECKER Work Phone: [facility] Comment on above: Irritant contact ashley matitis, unspecified trigger (Primary Dx) Start: 04-12-2023 End: 04-12-2023 Telemedicine consultation with patient India Tavares APRN.PACKAGE CHECKER Work Phone: [facility] Start: 06-22-2022 Refill Juan R Osullivan MD Work Phone: [facility] Comment on above: Refill Request Start: 06-01-2022 Telephone encounter Pepe Osullivan MD Work Phone: [facility] Comment on above: Erroneous encounter- disregard Start: 05-27-2022 End: 05-27-2022 Patient encounter procedure Juan R Osullivan MD Work Phone: [facility] Comment on above: Annual physical exam [...] cancer Start: 11-06-2021 Telephone encounter India cast APRN.PACKAGE CHECKER Work Phone: [facility] Comment on above: Results Start: 11-04-2021 End: 11-04-2021 Patient encounter procedure India Tavares APRN.PACKAGE CHECKER Work Phone: [facility] Comment on above: Type 2 diabetes jyame itus without complication, without long- term current use of insulin (HCC) (Primary Dx); Hypertension, essential; SILVANO (obstructive sleep apnea) Procedures Date Procedure Procedure Detail Performing Clinician Start: 03-15-2025 Radiologic exam abdo men 2 views Ingrid Saravia SHIPPER RECEIVER.PACKAGE CHECKER Work Phone: Start: 12-05-2023 Adult depression scr eening assessment [facility] Provider Start: 05-27-2022 INFLUENZA VACCINE QUADRIVALENT 6 MO - 64 YRS IM Juan R Osullivan MD Work Phone: Start: 03-06-2021 Adult depression scr eening assessment India Tavares SHIPPER RECEIVER.PACKAGE CHECKER Work Phone: Start: 09-22-2017 Colonoscopy India cast SHIPPER RECEIVER.PACKAGE CHECKER Work Phone: Plan of Treatment Date Care Activity Detail Author Start: 09-23-2027 Colonoscopy COLONOSCOPY [facility] Start: 09-23-2027 COLORECTAL CANCER SCREENING COLORECTAL CANCER SCREENING [facility] Start: 09-23-2027 Screening for malignant neoplasm of colon [facility] Start: 05-27-2027 PROSTATE CANCER SCREENING DISCUSSION PROSTATE CANCER SCREENING DISCUSSION [facility] Start: 05-27-2027 Prostate specific antigen measurement Prostate Cancer Screening Discussion [facility] Start: 05-05-2027 Urine microalbumin profile [facility] Start: 03-25-2025 Influenza vaccination Influenza Vaccine (#1) [facility] Start: 03-19-2025 End: 03-19-2025 Patient encounter procedure 03/19/2025 7:20 AM EDT Office Visit [facility] [address] [place], [place] [id number] Juan R Osullivan MD [address] [place] [id number] ov to discuss recommendations by DM educator and routine [facility] Comment on above: ov to discuss recommendations by DM educ ator and routine Start: 12-21-2024 Hepatitis B screening Urine Albumin:Creatinine Ratio [facility] Start: 12-21-2024 Hepatitis B surface antibody level LDL Cholesterol [facility] Start: 12-04-2024 Annual PCP Team Chronic Disease Visit Annual PCP Team Chronic Disease Visit [facility] Start: 12-04-2024 Anxiety Screening Anxiety Screening [facility] Start: 12-04-2024 Depression Screening Depression Screening [facility] Start: 12-04-2024 Diabetic foot examination Diabetic Foot Exam [facility] Start: 11-22-2024 End: 11-22-2024 ambulatory 11/22/2024 9:00 AM EDT [facility] [address] [id number] [place] [address] [place] [address] uncontrolled diabetes [facility] Comment on above: uncontrolled diabetes Start: 10-26-2024 End: 10-26-2024 Nursing evaluation of patient and report 10/26/2024 3:00 PM EDT Nurse Visit [facility] [address] [place] [address] [place] [address] [place] [address] follow up [facility] Comment on above: follow up Start: 10-24-2024 End: 10-24-2024 Patient encounter procedure 10/24/2024 3:20 PM EDT Office Visit Family [facility]thea M[facility] [address] [place] [address] India Tavares, SHIPPER RECEIVER.PACKAGE CHECKER [address] [place] [address] past due 3 month follow up Family [facility] Comment on above: past due 3 month follow up Start: 10-01-2024 End: 10-01-2024 Patient encounter procedure 10/01/2024 1:40 PM EDT Office Visit Family Althea Moyer [address] [facility] [place] [address] India Tavares, SHIPPER RECEIVER.PACKAGE CHECKER [address] [place] [address] past due 3 month follow up Family Althea Moyer Comment on above: past due 3 month follow up Start: 09-03-2024 End: 09-03-2024 Patient encounter procedure 09/03/2024 2:40 PM EST Office Visit Family [facility] [address] [facility] [address] India Tavares APRN.PACKAGE CHECKER [address] [facility] [place] [address] past due 3 month follow up Family [facility] Comment on above: past due 3 month follow up Start: 08-30-2024 End: 08-30-2024 ambulatory 08/30/2024 7:45 AM EST Results Only [facility] [address] [place] [address] [facility] Start: 07-10-2024 End: 07-10-2024 Nursing evaluation of patient and report 07/10/2024 3:00 PM EST Nurse Visit Endocrinology [address] [place] [address] Benitez Patricio, RN [address] [address] Controlling my blood sugar and working with meds Endocrinology Comment on above: Controlling my blood sugar and working w [facility] meds Start: 07-02-2024 End: 07-02-2024 Patient encounter procedure 07/02/2024 7:20 AM EST Office Visit Family [facility] [address] [facility] [place] [address] India Tavares APRN.PACKAGE CHECKER [address] [facility] [place] [address] follow up DM [facility] Comment on above: follow up DM Start: 06-29-2024 End: 06-29-2024 ambulatory 06/29/2024 8:45 AM EST Results Only [facility] [address] [place] [address] [facility] Start: 06-27-2024 End: 09-26-2024 CBC W Auto Differential panel - Blood COMPLETE BLOOD COUNT AND DIFFERENTIAL Lab Routine Type 2 diabetes mellitus with hyperglycemia, unspecified whether residential insulin use (HCC) Expected: 06/27/2024, Expires: 09/26/2024 [facility] Comment on above: Expected: 06/27/2024, Expires: Start: 06-27-2024 End: 09-26-2024 Comprehensive metabolic 2000 panel - Serum or Plasma COMPREHENSIVE METABOLIC PANEL Lab Routine Type 2 diabetes mellitus with hyperglycemia, unspecified whether predatory animal exterminator insulin use (HCC) Expected: 06/27/2024, Expires: 09/26/2024 [facility] Comment on above: Expected: 06/27/2024, Expires: Start: 06-27-2024 End: 09-26-2024 Hemoglobin A1c in Blood HEMOGLOBIN A1C Lab Routine Type 2 diabetes mellitus with hyperglycemia, unspecified whether predatory animal exterminator insulin use (HCC) Expected: 06/27/2024, Expires: 09/26/2024 [facility] Comment on above: Expected: 06/27/2024, Expires: Start: 06-27-2024 End: 09-26-2024 LIPID PANEL, NONFASTING LIPID PANEL, NONFASTING Lab Routine Type 2 diabetes mellitus with hyperglycemia, unspecified whether predatory animal exterminator insulin use (HCC) Expected: 06/27/2024, Expires: 09/26/2024 [facility] Comment on above: Expected: 06/27/2024, Expires: Start: 06-27-2024 End: 09-26-2024 Microalbumin/Creatinine [Mass Ratio] in Urine ALBUMIN/CREATININE RATIO, URINE Lab Routine Type 2 diabetes mellitus with hyperglycemia, unspecified whether residential insulin use (HCC) Expected: 06/27/2024, Expires: 09/26/2024 [facility] Work Phone: Comment on above: Expected: 06/27/2024, Expires: Start: 06-23-2024 Hemoglobin A1c measurement HbA1C [facility] Start: 06-05-2024 End: 06-05-2024 Patient encounter procedure 06/05/2024 8:40 AM EST Office [facility] [address] [place] [address] India Tavares APRN.PACKAGE CHECKER [address] [facility] [place] [address] follow up DM [facility] Comment on above: follow up DM Start: 05-07-2024 End: 05-07-2024 Patient encounter procedure [facility] [place] Comment on above: General appointment - changes in skin te xture and brown spots on head 3 month follow up Start: 04-12-2024 Annual PCP Team Chronic Disease Visit Annual PCP Team Chronic Disease Visit [facility] Start: 03-25-2024 Covid-19 Vaccine () Covid-19 Vaccine () [facility] Start: 03-25-2024 Influenza vaccination [facility] Start: 03-15-2024 End: 03-15-2024 Patient encounter procedure 03/15/2024 2:20 PM EDT Office Visit Family [facility]thea [facility] [address] [place] [address] Juan R Osullivan MD [address] [place] [address] 3 month follow up Family [facility] Comment on above: 3 month follow up Start: 03-07-2024 End: 03-07-2024 ambulatory 03/07/2024 8:45 AM EDT Results Only [facility] [address] [place] [address] labs [facility] Comment on above: labs Start: 03-06-2024 End: 06-05-2024 CBC W Auto Differential panel - Blood COMPLETE BLOOD COUNT AND DIFFERENTIAL Lab Routine Type 2 diabetes mellitus with hyperglycemia, unspecified whether predatory animal exterminator insulin use (HCC) Expected: 03/06/2024, Expires: 06/05/2024 [facility] Work Phone: Comment on above: Expected: 03/06/2024, Expires: Start: 03-06-2024 End: 06-05-2024 Comprehensive metabolic 2000 panel - Serum or Plasma COMPREHENSIVE METABOLIC PANEL Lab Routine Type 2 diabetes mellitus with hyperglycemia, unspecified whether predatory animal exterminator insulin use (HCC) Expected: 03/06/2024, Expires: 06/05/2024 [facility] Comment on above: Expected: 03/06/2024, Expires: Start: 03-06-2024 End: 06-05-2024 Hemoglobin A1c in Blood HEMOGLOBIN A1C Lab Routine Type 2 diabetes mellitus with hyperglycemia, unspecified whether residential insulin use (HCC) Expected: 03/06/2024, Expires: 06/05/2024 [facility] Comment on above: Expected: 03/06/2024, Expires: Start: 03-06-2024 End: 06-05-2024 LIPID PANEL, NONFASTING LIPID PANEL, NONFASTING Lab Routine Type 2 diabetes mellitus with hyperglycemia, unspecified whether predatory animal exterminator insulin use (HCC) Expected: 03/06/2024, Expires: 06/05/2024 [facility] Comment on above: Expected: 03/06/2024, Expires: Start: 03-06-2024 End: 06-05-2024 Microalbumin/Creatinine [Mass Ratio] in Urine ALBUMIN/CREATININE RATIO, URINE Lab Routine Type 2 diabetes mellitus with hyperglycemia, unspecified whether predatory animal exterminator insulin use (HCC) Expected: 03/06/2024, Expires: 06/05/2024 [facility] Comment on above: Expected: 03/06/2024, Expires: Start: 03-06-2024 End: 03-06-2024 Patient encounter procedure 03/06/2024 10:40 AM EDT Office Visit [facility] [place] [address] [place] [id number] Kenia Manrique MD [address] [place] [address] General appointment - changes in skin texture and brown spots on head [facility] [place] Comment on above: General appointment - changes in skin te xture and brown spots on head Start: 02-02-2024 End: 02-02-2024 Patient encounter procedure 02/02/2024 3:00 PM EDT Office Visit [facility] [address] [place] [address] Charisse Nguyen, [facility] [address], [place] [id number] Type 2 diabetes mellitus with hyperglycemia, unspecified whether residential insulin use (HCC) [E11.65] [facility] Comment on above: Type 2 diabetes mellitus with hyperglyce olman, unspecified whether predatory animal exterminator insulin use (HCC) [E11.65] Start: 2024 RSV Vaccine (1 - 1-dose 60+ series) RSV Vaccine (1 - 1-dose 60+ series) [facility] Start: 2024 RSV Vaccine (1 - Risk 60-74 years 1-dose series) RSV Vaccine (1 - Risk 60-74 years 1-dose series) [facility] Start: 12-05-2023 End: 03-05-2024 CBC panel - Blood by Automated count COMPLETE BLOOD COUNT Lab Routine Essential hypertension Expected: 12/05/2023, Expires: 03/05/2024 [facility] Comment on above: Expected: 12/05/2023, Expires: Start: 12-05-2023 End: 03-05-2024 Cholesterol in LDL [Mass/volume] in Serum or Plasma LDL CHOLESTEROL DIR Lab Routine Elevated triglycerides with high cholesterol Expected: 12/05/2023, Expires: 03/05/2024 [facility] Comment on above: Expected: 12/05/2023, Expires: Start: 12-05-2023 End: 03-05-2024 Comprehensive metabolic 2000 panel - Serum or Plasma COMPREHENSIVE METABOLIC PANEL Lab Routine Essential hypertension Expected: 12/05/2023, Expires: 03/05/2024 [facility] Comment on above: Expected: 12/05/2023, Expires: Start: 12-05-2023 End: 03-05-2024 Hemoglobin A1c in Blood HEMOGLOBIN A1C Lab Routine Type 2 diabetes mellitus without complication, without long-term current use of insulin (HCC) Expected: 12/05/2023, Expires: 03/05/2024 [facility] Work Phone: Comment on above: Expected: 12/05/2023, Expires: Start: 12-05-2023 End: 03-05-2024 Lipid 1996 panel - Serum or Plasma LIPID PANEL BASIC Lab Routine Elevated triglycerides with high cholesterol Expected: 12/05/2023, Expires: 03/05/2024 [facility] Comment on above: Expected: 12/05/2023, Expires: 4 Start: 12-05-2023 End: 03-05-2024 Microalbumin/Creatinine [Mass Ratio] in Urine ALBUMIN/CREATININE RATIO, URINE Lab Routine Type 2 diabetes mellitus without complication, without long-term current use of insulin (HCC) Expected: 12/05/2023, Expires: 03/05/2024 [facility] Comment on above: Expected: 12/05/2023, Expires: 4 Start: 05-27-2023 ANNUAL PCP TEAM CHRONIC DISEASE VISIT ANNUAL PCP TEAM CHRONIC DISEASE VISIT [facility] Start: 05-27-2023 COVID-19 VACCINE (#1) COVID-19 VACCINE (#1) [facility] Comment on above: Postponed from 1965 (Declined at t his time) Start: 05-27-2023 Hepatitis B surface antibody level LDL CHOLESTEROL [facility] Start: 05-27-2023 SHINGRIX VACCINE (1 of 2) SHINGRIX VACCINE (1 of 2) [facility] Comment on above: Postponed from 01/20/2014 (Declined at t his time) Start: 03-25-2023 Covid-19 Vaccine ( season) Covid-19 Vaccine ( season) [facility] Start: 03-25-2023 Influenza [facility] Start: 11-24-2022 Hemoglobin A1c measurement HbA1C [facility] Start: 11-24-2022 Hemoglobin A1c/Hemoglobin.total in Blood HBA1C [facility] Start: 11-04-2022 3 comp foot exam completed DIABETIC FOOT EXAM [facility] Start: 11-04-2022 ANNUAL PCP TEAM CHRONIC DISEASE VISIT ANNUAL PCP TEAM CHRONIC DISEASE VISIT [facility] Start: 11-04-2022 Hepatitis B screening URINE ALBUMIN:CREATININE RATIO [facility] Start: 07-25-2022 DEPRESSION ASSESSMENT DEPRESSION ASSESSMENT [facility] Start: 07-21-2022 ONE PNEUMOVAX PRIOR TO AGE 65 ONE PNEUMOVAX PRIOR TO AGE 65 [facility] Comment on above: Postponed from 1980 (Declined at t his time) Start: 07-21-2022 PNEUMOCOCCAL (1 - PCV) PNEUMOCOCCAL (1 - PCV) [facility] Comment on above: Postponed from 01/20/1970 (Declined at t his time) Start: 05-27-2022 End: 07-27-2022 Comprehensive metabolic 2000 panel - Serum or Plasma [facility] Work Phone: Comment on above: Expected: 05/27/2022, Expires: 3 Start: 05-27-2022 End: 07-27-2022 Hemoglobin A1c in Blood [facility] Work Phone: Comment on above: Expected: 05/27/2022, Expires: 3 Start: 05-27-2022 End: 07-27-2022 HIV 1+2 Ab [Presence] in Serum or Plasma by Immunoassay [facility] Work Phone: Comment on above: Expected: 05/27/2022, Expires: 3 Start: 05-27-2022 End: 07-27-2022 LIPID PANEL, NONFASTING [facility] Work Phone: Comment on above: Expected: 05/27/2022, Expires: 3 Start: 05-06-2022 Hemoglobin A1c/Hemoglobin.total in Blood HBA1C [facility] Start: 05-05-2022 PROSTATE CANCER SCREENING DISCUSSION PROSTATE CANCER SCREENING DISCUSSION [facility] Start: 03-25-2022 Influenza vaccination INFLUENZA (Season Ended) [facility] Start: 03-06-2022 Adult depression screening assessment DEPRESSION SCREENING [facility] Start: 03-06-2022 Hepatitis B surface antibody level LDL CHOLESTEROL [facility] Start: 03-06-2022 HIV SCREENING HIV SCREENING [facility] Comment on above: Postponed from 01/20/1982 (Declined at t his time) Start: 11-04-2021 End: 01-04-2022 ALBUMIN/CREAT RATIO RND UR [facility] Work Phone: Comment on above: Expected: 11/04/2021, Expires: 2 Start: 11-04-2021 End: 01-04-2022 Comprehensive metabolic 2000 panel - Serum or Plasma [facility] Work Phone: Comment on above: Expected: 11/04/2021, Expires: 2 Start: 11-04-2021 End: 01-04-2022 Hemoglobin A1c/Hemoglobin.total in Blood [facility] Work Phone: Comment on above: Expected: 11/04/2021, Expires: 2 Start: 09-06-2021 Hemoglobin A1c/Hemoglobin.total in Blood HBA1C [facility] Start: 01-20-2014 SHINGRIX VACCINE (1 of 2) SHINGRIX VACCINE (1 of 2) [facility] Start: 01-20-2009 COLOGUARD (FIT-DNA) COLOGUARD (FIT-DNA) [facility] Start: 01-20-[address] COLONOGRAPHY [facility] Start: 01-20-2009 FECAL OCCULT BLOOD FECAL OCCULT BLOOD [facility] Start: 01-20-2009 Screening for malignant neoplasm of colon [facility] Start: 01-20-2009 SIGMOIDOSCOPY SIGMOIDOSCOPY [facility] Start: 01-20-1983 Pneumococcal Vaccine: 50+ (1 of 2 - PCV) Pneumococcal Vaccine: 50+ (1 of 2 - PCV) [facility] Start: 01-20-1982 BP CONTROLLED (<130/80) BP CONTROLLED (<130/80) [facility] Start: 01-20-1982 HIV SCREENING HIV SCREENING [facility] Start: 01-20-1974 Glaucoma screening Dilated Retinal Exam [facility] Start: 01-20-1974 Hepatitis B screening URINE ALBUMIN:CREATININE RATIO [facility] Start: 01-20-1974 Hepatitis C antibody, confirmatory test DILATED RETINAL EXAM [facility] Start: 01-20-1970 PNEUMOCOCCAL (1 - PCV) PNEUMOCOCCAL (1 - PCV) [facility] Start: 01-20-1970 Pneumococcal vaccination [facility] Start: 01-20-1969 COVID-19 VACCINE (1) COVID-19 VACCINE (1) [facility] Immunizations Immunization Date Immunization Notes Care Provider Janell blanchard 05-27-2022 influenza, injectabl e, quadrivalent, contains preservative Juan R Osullivan MD Work Phone: [facility] 05-27-2022 influenza virus vaccine, unspecified formulation [employer] SHIPPER RECEIVER.PACKAGE CHECKER Work Phone: [facility] 05-14-2018 influenza, injectabl e, quadrivalent, preservative free Juan R Osullivan MD Work Phone: [facility] Work Phone: 05-05-2017 influenza, injectabl e, quadrivalent, contains preservative [employer] SHIPPER RECEIVER.PACKAGE CHECKER Work Phone: [facility] 05-05-2017 tetanus toxoid, reduced diphtheria toxoid, and acellular pertussis vaccine, adsorbed [employer] SHIPPER RECEIVER.PACKAGE CHECKER Work Phone: [facility] Payers Date Payer Category Payer Self-pay 2024 Self-pay 2022 Private Health Insurance [id number] 2021 Private Health Insurance [id number] 2021 Unknown [employer] SS PPO [id number] 2021-Present [phone] [address] [place] [address] PPO [id number] 2020 Unknown EYE CARE PLAN OF [employer] [id number] 07/25/2020-Present [address] [place] [address] Indemnity [id number] 1965 Unknown [id number] Unknown [id number] Unknown [id number] Social History Date Type Detail Facility Start: 05-27-2022 Tobacco smoking status NHIS Never smoked tobacco [facility] Start: 11-04-2021 End: 03-15-2025 Alcohol intake Current drinker of alcohol (finding) [facility] Start: 07-20-2021 History SDOH Alcohol Frequency 4 [facility] Start: 07-20-2021 End: 05-26-2022 History SDOH Alcohol Std Drinks 1 [facility] Start: 05-05-2017 History SDOH Alcohol Comment Occasionally once per month [facility] Start: 07-20-2021 History SDOH Social Connections Phone 5 [facility] Start: 07-20-2021 History SDOH Social Connections Get Together 3 [facility] Start: 07-20-2021 End: 05-26-2022 History SDOH Stress 2 [facility] Start: 1965 Sex Assigned At Male [facility] Start: 10-16-2021 End: 05-27-2022 Exposure to SARS-CoV-2 (event) Not sure [facility] Work Phone: Start: 05-27-2022 Tobacco use and exposure Smokeless tobacco non-user [facility] Start: 05-27-2022 Alcohol Comment Occasionally twice per month [facility] Start: 12-05-2022 End: 01-07-2023 History of Social function [facility] Start: 12-05-2022 End: 01-07-2023 Social connection and isolation panel [facility] Start: 06-25-2012 Active Member of Clubs or Organizations Not on file [facility] Are you now , , , , never or living with a partner? [facility] How often to you hav e a drink containing alcohol? 2-4 times a month [facility] How many standard dr inks containing alcohol do you have on a typical day? 3 or 4 [facility] How often do you hav e 6 or more drinks on 1 occasion? Never [facility] Do you feel stress - tense, restless, nervous, or anxious, or unable to sleep at night because your mind is troubled all the time - these days [OSQ] To some extent [facility] (I/We) worried wheth er (my/our) food would run out before (I/we) got money to buy more. Never true [facility] In the past 12 month s, was there a time when you were not able to pay the mortgage or rent on time? No [facility] Start: 03-05-2021 Gender identity Identifies as male gender (finding) [facility] Start: 03-05-2021 Sexual orientation Heterosexual (finding) [facility] Medical Equipment Procedure Code Equipment Code Equipment Origin al Text Equipment Identifier Dates [id number] Start: 12-23-2023 Test blood sugar (s) 3 times daily. Dx: Type 2 DM - Uncontrolled E11.65 Insulin: Yes [id number] Start: 12-23-2023 Use one needle p er dose. once per day. [id number] Start: 01-27-2024 End: 09-19-2024 Use one needle p er dose. once per day. [id number] Start: 09-20-2024 Clinical Notes 11-04-2021 to 03-15-2025 Ingrid Saravia APRN.PACKAGE CHECKER - 03/15/2025 3:11 PM EDTPatient InstructionsRob Mckeon RT(R) - 03/15/2025 2:50 PM EDTCDaniele palencia RN - 10/18/2024 5:31 PM EDTPatient Instructions Note Date & Type Note Facility 03-15-2025 History of Present illness Narrative URGENT CARE [facility]i Gonzalez is a 60 year old [...] Morbid obesity with BMI of 40.0-44.9, adult ([facility]) SILVANO (obstructive sleep apnea) severe Seasonal allergies Snoring Type 2 diabetes mellitus without complication, without long-term current use of insulin ([facility]) 03/09/2021 PAST SURGICAL HISTORY Procedure Laterality Date [...] insulin use (HCC) (E11.9) and Recording using [employer] software for draft documentation of the visit was discussed with the patient/authorized personal financial representative; all questions welcomed and answered. Patient/authorized personal financial representative agreed to proceed MDM Procedures [1] Social History Tobacco Use Smoking status: Never Smokeless tobacco: Never Substance Use Topics Alcohol use: Yes Comment: Occasionally twice per month Drug use: No documented in this encounter [facility] 03-15-2025 Instructions Ingrid Saravia APRN.CNP - [...] more? National Digestive Diseases Information Clearinghouse2 Information [place], [place] [address] www.digestive.niddk.nih.gov email: References: National Digestive Diseases Information Clearinghouse. Constipation. digestive.niddk.nih.gov Accessed April 28, 2012. [place] [employer]. Understanding Constipation. www.gastro.org. Accessed April 28, 2012. Copyright 9547-8093 [facility]. All rights reserved This information is provided by the [facility] and is not intended to replace the medical advice of your doctor or health care provider. Please consult your health care provider for advice about a specific medical condition. For additional health information, please contact the Center for Consumer Health Information at the [facility] or toll-free extension [phone]. If you prefer, you may visit [email or web address]/ or [email or web address]. This document was last reviewed on: 2012 index #[id number] documented in this encounter [facility] 03-15-2025 History of Present illness Narrative [...] PATIENT PRESENTS WITH AN IMPLANTABLE OR ATTACHED APPLIANCES SAMPLE MAKER: No RADIOLOGY DEPARTMENT: General X-ray: Exam(s) Completed: Abdomen X-Ray: Abdomen with Upright PERIPHERAL IV DATA: Not applicable SIGNED BY: RT Aaron(R) March 15, 2025 2:29 PM documented in this encounter [facility] 10-18-2024 Note HNO ID: [id number] Author: DANIELE MCKEON RN Service: ? Author Type: Registered Nurse Type: Progress Notes Filed: 10/18/2024 18:00 Note Text: DIABETES SELF-MANAGEMENT EDUCATION AND SUPPORT [facility] Type of visit: Virtual (with video) individual I have communicated my name and active licensure. The patient's identity and physical location were verified at the time of this visit. 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 [facility] 10-18-2024 History of Present illness Narrative DIABETES SELF-MANAGEMENT EDUCATION AND SUPPORT [facility] Type of visit: Virtual (with video) individual I have communicated my name and active licensure. The patient's identity and physical location were verified at the time of this visit. 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 Needs to schedule in next 30 days. [facility] 09-20-2024 Miscellaneous Notes Overdue for OV. [...] 2024 4:58 PM documented in this encounter [facility] 09-19-2024 Telephone encounter Note The patient [...] Lynch RN September 19, 2024 4:58 PM [facility] 08-29-2024 Telephone encounter Note Phoned patient and updated him with provider's message. Patient voiced understanding. Jessica Wynn LPN [facility] 08-29-2024 Miscellaneous Notes Phoned patient and [...] PHARMACY: [facility]. documented in this encounter [facility] 08-29-2024 Telephone encounter Note I will send in another 30 day refill, but needs OV in the next 1 month for DM follow up. [facility] 08-29-2024 Telephone encounter Note Per EPIC, Jardiance last prescribed 05/29/24, #30. Phone call to patient to see if he has been taking the jardiance. Pt states that he finished that prescription in June, so he has gone without all of July. Pt KILEY with [place] 12/04/24 and was asked to follow up in 3 months. Masha Aguayo MA [facility] 08-29-2024 Telephone encounter Note Patient is asking for a refill that is empagliflozin (JARDIANCE) 10 mg tablet ( Patient last seen 12/05/23 Future visit scheduled: no PHARMACY: [facility]. [facility] 06-27-2024 Telephone encounter Note MyChart msg sent to pt as requested. [facility] 06-27-2024 Miscellaneous Notes MyChart msg sent to pt as requested. Labs ordered to be completed 1-2 days prior to OV. Derik is calling Juan R Osullivan MD today to request an order for labs for his upcoming appointment. Please send a message in Correlor when labs are ordered. TY Patient has been identified by name and birthdate. Duration of symptoms: N/A Person calling: self Call patient at: at home [phone] (home) [phone] (cell) Was an appointment scheduled: No Closing statement: Results or non-symptom based questions: Thank you for calling [facility], your call will be returned within the next business day. India Miller documented in this encounter [facility] 06-27-2024 Telephone encounter Note Labs ordered to be completed 1-2 days prior to OV. [facility] 06-27-2024 Telephone encounter Note Derik is calling Juan R Osullivan MD today to request an order for labs for his upcoming appointment. Please send a message in Correlor when labs are ordered. TY Patient has been identified by name and birthdate. Duration of symptoms: N/A Person calling: self Call patient at: at home [phone] (home) [phone] (cell) Was an appointment scheduled: No Closing statement: Results or non-symptom based questions: Thank you for calling [facility], your call will be returned within the next business day. India Miller [facility] 05-29-2024 Telephone encounter Note Spoke with pt and apt booked and pt will get blood work done prior to apt. Sandhya Jackson LPN [facility] 05-29-2024 Miscellaneous Notes Spoke with pt [...] 2024 3:12 PM documented in this encounter [facility] 05-29-2024 Telephone encounter Note Please let patient know he is overdue for follow up and needs schedule. [facility] 05-28-2024 Telephone encounter Note Prescription Refill [...] Klarissa Luna May 28, 2024 3:12 PM [facility] Work Phone: 05-07-2024 Telephone encounter Note [...] Martita Luna May 07, 2024 1:31 PM [facility] 05-07-2024 Miscellaneous Notes Prescription Refill Information [...] 2024 1:31 PM documented in this encounter [facility] 04-17-2024 Telephone encounter Note Prescription Refill [...] Clarisse Quintero April 17, 2024 3:47 PM [facility] 04-17-2024 Miscellaneous Notes Prescription Refill Information [...] 2024 3:47 PM documented in this encounter [facility] 03-12-2024 Telephone encounter Note Phoned patient and advised him PCP placed orders last week and recommend at least 2 days prior to appt to complete labs. Patient reports he will try to come tomorrow to complete. Jessica Wynn LPN [facility] 03-12-2024 Miscellaneous Notes Phoned patient and [...] with Dr. Osullivan. Please call him at [phone] when placed. documented in this encounter [facility] 03-09-2024 Telephone encounter Note Mychart message sent to pt notifying him we tried to contact him with message left for a call back. Notified pt that fasting labs and a urine have been ordered to complete this week for his upcoming appt next week. Will keep encounter open to make sure pt has read his message. Yudi Pimentel MA [facility] 03-06-2024 Telephone encounter Note Phoned patient left message to return call and ask to speak to a nurse. [facility] 03-06-2024 Telephone encounter Note Labs ordered. Come in this week to have them done so we can review at his appointment. [facility] 03-06-2024 Telephone encounter Note Patient called to request lab orders for his upcoming follow up appt with Dr. Osullivan. Please call him at [phone] when placed. [facility] 02-02-2024 Telephone encounter Note Telephoned the patient regarding missed appt. Left a message. First attempt. [facility] 02-02-2024 Miscellaneous Notes Telephoned the patient regarding missed appt. Left a message. First attempt. Primary Care Pharmacy Rescheduling Outreach Call center, please contact patient and reschedule in person, telephone, and virtual visit for Diabetes management within ~4 week(s). (Visit length: 60 minutes - NEW) Thank you, Charisse Nguyen PharmD, BCACP [facility] Clinical Ssrs Report Developer 02/02/2024 3:57 PM documented in this encounter [facility] 02-02-2024 Telephone encounter Note Primary Care Pharmacy Rescheduling Outreach Call center, please contact patient and reschedule in person, telephone, and virtual visit for Diabetes management within ~4 week(s). (Visit length: 60 minutes - NEW) Thank you, Charisse Nguyen PharmD, BCACP Primary Care Clinical Ssrs Report Developer 02/02/2024 3:57 PM [facility] Work Phone: 01-27-2024 Telephone encounter Note Patient updated and voiced understanding. Jessica Wynn LPN [facility] 01-27-2024 Miscellaneous Notes Patient updated and [...] calling: self Call patient at: at home [phone] (home) [phone] (cell) Was an appointment scheduled: No Closing statement: Results or non-symptom based questions: Thank you for calling [facility], your call will be returned within the next business day. Masha Luna documented in this encounter [facility] 01-27-2024 Telephone encounter Note Prescription sent. India Tavares APRN.CNP [facility] 01-27-2024 Telephone encounter Note Derik is calling India Tavares APRN.CNP today to request Medication Problem (Patient states that the insulin pen needles were not sent to the pharmacy. Please send script over to his pharmacy ) Patient has been identified by name and birthdate. Duration of symptoms: N/A Person calling: self Call patient at: at home [phone] (home) [phone] (cell) Was an appointment scheduled: No Closing statement: Results or non-symptom based questions: Thank you for calling [facility], your call will be returned within the next business day. Masha Luna [facility] Work Phone: 12-26-2023 Telephone encounter Note Called and spoke to patient to schedule Primary Care Pharmacy consult on 02/02/2024 (soonest available at [facility]). [facility] 12-26-2023 Miscellaneous Notes Called and spoke to patient to schedule Primary Care Pharmacy consult on 02/02/2024 (soonest available at [facility]). documented in this encounter [facility] 12-13-2023 Telephone encounter Note Order, demographics and office note faxed to [facility] at [phone]. Patient telephoned and notified. Will follow up with [employer]. Patient will call office back if has any further issues. Trevor Hill LPN [facility] 12-13-2023 Miscellaneous Notes Order, demographics and office note faxed to [facility] [place] at [phone]. Patient telephoned and notified. Will follow up [...] calling: self Call patient at: on cell [phone] (home) [phone] (cell) Was an appointment scheduled: No Closing statement: Results or non-symptom based questions: Thank you for calling [facility], your call will be returned within the next business day. Carole Greer documented in this encounter [facility] 12-13-2023 Telephone encounter Note Derik is [...] calling: self Call patient at: on cell [phone] (home) [phone] (cell) Was an appointment scheduled: No Closing statement: Results or non-symptom based questions: Thank you for calling [facility], your call will be returned within the next business day. Carole Greer [facility] 12-05-2023 Instructions PodIndia breen APRN.HONORIO - 12/05/2023 3:15 PM EDT Images from the original note were not included. To schedule a diabetic eye exam at the [facility] [place], please call: [phone] Online resources to learn more [email or web address]://[email or web address].org/hea lt/diseases/2496-azvxtjyu-uvlztte athy https://www.diabetes.org/diabetes/ complications/eye-complications https://www.aoa.org/healthy-eyes/e zb-cck-oujumz-conditions/diabetic- retinopathy?sso=y https://www.[employer] References 1. National Diabetes Statistics Report 2020: Estimates of Diabetes and Its [place] in the [facility]. Center for Disease Control and Prevention; 2020. Available at: https://www.cdc.gov/diabetes/pdfs/ data/statistics/national-diabetes- statistics-report.pdf 2. Estefania Rios, Razia Bush, Bala Monten[place], Kasie Hermosillo, Klarissa Farrell, Red Lewis, Walt Siegel, Madi Genao; Diabetic Retinopathy: A Position Statement by the [place] [employer] Association. Diabetes Care 22 September 2016; 40 (3): 412-418 documented in this encounter [facility] 12-05-2023 Note HNO ID: [id number] Author: INDIA TAVARES APRN.PACKAGE CHECKER Service: ? Author Type: Nurse Practitioner Type: [...] complication, without long-term current use of insulin ([facility]) 03/09/2021 ALLERGIES Losartan and Seasonal Allergies MEDICATIONS [...] on 05/27/2027 Col (more content not included)... [facility] 12-05-2023 History of Present [...] Morbid obesity with BMI of 40.0-44.9, adult ([facility]) SILVANO (obstructive sleep apnea) severe Seasonal allergies Snoring Type 2 diabetes mellitus without complication, without long-term current use of insulin ([facility]) 03/09/2021 ALLERGIES Losartan and Seasonal Allergies MEDICATIONS [...] to try nasal pillow- order faxed to [facility] [place] - discussed risks of untreated sleep apnea- verbalizes understanding - CPAP DEVICE, WITH HUMIDIFIER 7. Depression screening - ICD9: V79.0, ICD10: Z13.31 - BEHAVIORAL HEALTH SCREENING India Tavares APRN.PACKAGE CHECKER Prescription instructions reviewed with patient as applicable. Patient advised if symptoms do not improve or if symptoms worsen sooner, to contact their primary care physician. Potential red flag symptoms discussed with the patient. Reviewed appropriate action plan to take if red flag symptoms occur. Patient agreeable to treatment plan. documented in this encounter [facility] 04-12-2023 History of Present illness Narrative 04/12/2023 Patient presents with: Rash I have communicated my name and active licensure. The patient's identity and physical location were verified at the time of this visit. Either the patient or their legal personal financial representative has been informed of the risks [...] Morbid obesity with BMI of 40.0-44.9, adult ([facility]) SILVANO (obstructive sleep apnea) severe Seasonal allergies Snoring Type 2 diabetes mellitus without complication, without long-term current use of insulin ([facility]) 03/09/2021 ALLERGIES Losartan and Seasonal Allergies MEDICATIONS [...] which included preparing to see the patient, zljk-[id number] patient care, completing clinical documentation, obtaining and/or reviewing separately obtained history, performing a medically appropriate examination, counseling and educating the patient/family/caregiver, and ordering medications, tests, or procedures. documented in this encounter [facility] 06-22-2022 Miscellaneous Notes Rx for Cialis 10 mg sent to pharmacy. Contact our office if symptoms not improved on this dosage. Patient contacted and states he would like to try the Cialis due to wanting something stronger than Viagra 100 mg. Uses [facility] in [place]. Thank you. He is on 100 mg [...] patient. Thank you. documented in this encounter [facility] 05-27-2022 History of Present illness Narrative [...] past [address] Brandt in [place]. Reports this was normal/negative. Last Podiatry exam [...] Morbid obesity with BMI of 40.0-44.9, adult ([facility]) SILVANO (obstructive sleep apnea) severe Prediabetes Seasonal allergies Snoring Type 2 diabetes mellitus without complication, without long-term current use of insulin ([facility]) 03/09/2021 Previous Surgical History PAST SURGICAL HISTORY [...] (FLONASE) 50 mcg/actuation nasal spray Use 1 [place] in each nostril once daily. (Patient not [...] R Osullivan MD documented in this encounter [facility] 11-06-2021 Miscellaneous Notes Patient notified and voiced his understanding. Patient telephoned. Message left to call back for update. Trevor Hill LPN Please call patient and let him know A1c hs improved- continue current medication, diet and exercise. The rest of his blood work and his urine is normal. India Tavares APRN.HONORIO documented in this encounter [facility] 11-04-2021 History of Present illness Narrative [...] Morbid obesity with BMI of 40.0-44.9, adult ([facility]) SILVANO (obstructive sleep apnea) severe Prediabetes Seasonal allergies Snoring Type 2 diabetes mellitus without complication, without long-term current use of insulin ([facility]) 03/09/2021 ALLERGIES Seasonal Allergies MEDICATIONS Current Outpatient [...] (FLONASE) 50 mcg/actuation nasal spray Use 1 [place] in each nostril once daily. (Patient not [...] to treatment plan. documented in this encounter [facility] Evaluation note Diagnosis Type 2 diabetes mellitus without complication, without long-term current use of insulin (HCC)- Primary Hypertension, essential Unspecified essential hypertension SILVANO (obstructive sleep apnea) Obstructive sleep apnea (adult) (pediatric) [facility] Diagnosis Annual physical exam- Primary [...] neoplasm of prostate documented in this encounter [facility] note* Diagnosis Skin tag Unspecified hypertrophic and atrophic condition of skin documented in this encounter [facility] note* Diagnosis Irritant contact dermatitis, unspecified trigger- Primary documented in this encounter [facility] note* Diagnosis Annual physical exam- Primary Routine general medical examination at a health care facility Type 2 diabetes mellitus without complication, without long-term current use of insulin (HCC) Elevated triglycerides with high cholesterol Mixed hyperlipidemia Essential hypertension Unspecified essential hypertension Hyperlipidemia, mixed Mixed hyperlipidemia SILVANO (obstructive sleep apnea) Obstructive sleep apnea (adult) (pediatric) Depression screening Screening for depression documented in this encounter [facility] note* Diagnosis Type 2 diabetes mellitus with hyperglycemia, unspecified whether residential insulin use (HCC)- Primary documented in this encounter [facility] note* Diagnosis Type 2 diabetes mellitus with hyperglycemia, unspecified whether residential insulin use (HCC)- Primary documented in this encounter [facility] note* Diagnosis Type 2 diabetes mellitus with hyperglycemia, unspecified whether predatory animal exterminator insulin use (HCC)- Primary documented in this encounter [facility] note* Diagnosis Type 2 diabetes mellitus with hyperglycemia, unspecified whether predatory animal exterminator insulin use (HCC) documented in this encounter [facility] note* Diagnosis Acute constipation- Primary Unspecified constipation Essential (primary) hypertension Unspecified essential hypertension Gastro-esophageal reflux disease without esophagitis Esophageal reflux Type 2 diabetes mellitus without complication, unspecified whether predatory animal exterminator insulin use (HCC) Acute constipation Unspecified constipation documented in this encounter [facility] note* Diagnosis Acute constipation Unspecified constipation documented in this encounter [facility] for visit Narrative* Diagnostic Procedure Only (Urgent) - Closed Specialty Diagnoses / Procedures Referred By Contac t Referred To Contact XR IMAGING Diagnoses Acute constipation Procedures XR ABDOMEN 2V ROUTINE SUPINE W UPRIGHT/DECUB/CTL RADIOLOGIC EXAM ABDOMEN 2 VIEWS Ingrid Saravia APRN.PACKAGE CHECKER [address] [facility] [place] [address] Phone: tel: fax: [place] [address] Referral ID Status Reason Start Date Expiration Date V isits Requested Visits Authorized [id number] Closed Auto-Generate d Referral 03/15/2025 04/14/2026 1 1 [facility] Advance Directives Documents on File Type Date Recorded Patient Lung Gun Operator Expl 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 Advance Directive(s) 11/10/2017 6:35 AM [...] or prosecute any alcohol or drug abuse patient.[facility] the event this information is protected by the Federal Confidentiality of Alcohol and Drug Abuse Patient Records regulations: The Federal rules restrict any use of the information to criminally investigate or prosecute any alcohol or drug abuse patient.[facility] the event this information is protected by the Federal Confidentiality of Alcohol and Drug Abuse Patient Records regulations: The Federal rules restrict any use of the information to criminally investigate or prosecute any alcohol or drug abuse patient.[facility] the event this information is protected by the Federal Confidentiality of Alcohol and Drug Abuse Patient Records regulations: The Federal rules restrict any use of the information to criminally investigate or prosecute any alcohol or drug abuse patient.[facility] the event this information is protected by the Federal Confidentiality of Alcohol and Drug Abuse Patient Records regulations: The Federal rules restrict any use of the information to criminally investigate or prosecute any alcohol or drug abuse patient.[facility] the event this information is protected by the Federal Confidentiality of Alcohol and Drug Abuse Patient Records regulations: The Federal rules restrict any use of the information to criminally investigate or prosecute any alcohol or drug abuse patient.[facility] the event this information is protected by the Federal Confidentiality of Alcohol and Drug Abuse Patient Records regulations: The Federal rules restrict any use of the information to criminally investigate or prosecute any alcohol or drug abuse patient.[facility] the event this information is protected by the Federal Confidentiality of Alcohol and Drug Abuse Patient Records regulations: The Federal rules restrict any use of the information to criminally investigate or prosecute any alcohol or drug abuse patient.[facility] the event this information is protected by the Federal Confidentiality of Alcohol and Drug Abuse Patient Records regulations: The Federal rules restrict any use of the information to criminally investigate or prosecute any alcohol or drug abuse patient.[facility] the event this information is protected by the Federal Confidentiality of Alcohol and Drug Abuse Patient Records regulations: The Federal rules restrict any use of the information to criminally investigate or prosecute any alcohol or drug abuse patient.[facility] the event this information is protected by the Federal Confidentiality of Alcohol and Drug Abuse Patient Records regulations: The Federal rules restrict any use of the information to criminally investigate or prosecute any alcohol or drug abuse patient.[facility] the event this information is protected by the Federal Confidentiality of Alcohol and Drug Abuse Patient Records regulations: The Federal rules restrict any use of the information to criminally investigate or prosecute any alcohol or drug abuse patient.[facility] the event this information is protected by the Federal Confidentiality of Alcohol and Drug Abuse Patient Records regulations: The Federal rules restrict any use of the information to criminally investigate or prosecute any alcohol or drug abuse patient.[facility] the event this information is protected by the Federal Confidentiality of Alcohol and Drug Abuse Patient Records regulations: The Federal rules restrict any use of the information to criminally investigate or prosecute any alcohol or drug abuse patient.[facility] the event this information is protected by the Federal Confidentiality of Alcohol and Drug Abuse Patient Records regulations: The Federal rules restrict any use of the information to criminally investigate or prosecute any alcohol or drug abuse patient.[facility] the event this information is protected by the Federal Confidentiality of Alcohol and Drug Abuse Patient Records regulations: The Federal rules restrict any use of the information to criminally investigate or prosecute any alcohol or drug abuse patient.[facility] the event this information is protected by the Federal Confidentiality of Alcohol and Drug Abuse Patient Records regulations: The Federal rules restrict any use of the information to criminally investigate or prosecute any alcohol or drug abuse patient.[facility] the event this information is protected by the Federal Confidentiality of Alcohol and Drug Abuse Patient Records regulations: The Federal rules restrict any use of the information to criminally investigate or prosecute any alcohol or drug abuse patient.[facility] the event this information is protected by the Federal Confidentiality of Alcohol and Drug Abuse Patient Records regulations: The Federal rules restrict any use of the information to criminally investigate or prosecute any alcohol or drug abuse patient.[facility] the event this information is protected by the Federal Confidentiality of Alcohol and Drug Abuse Patient Records regulations: The Federal rules restrict any use of the information to criminally investigate or prosecute any alcohol or drug abuse patient.[facility] the event this information is protected by the Federal Confidentiality of Alcohol and Drug Abuse Patient Records regulations: The Federal rules restrict any use of the information to criminally investigate or prosecute any alcohol or drug abuse patient.[facility] the event this information is protected by the Federal Confidentiality of Alcohol and Drug Abuse Patient Records regulations: The Federal rules restrict any use of the information to criminally investigate or prosecute any alcohol or drug abuse patient.[facility] the event this information is protected by the Federal Confidentiality of Alcohol and Drug Abuse Patient Records regulations: The Federal rules restrict any use of the information to criminally investigate or prosecute any alcohol or drug abuse patient.[facility] the event this information is protected by the Federal Confidentiality of Alcohol and Drug Abuse Patient Records regulations: The Federal rules restrict any use of the information to criminally investigate or prosecute any alcohol or drug abuse patient.[facility] Reason for Visit (unrecogniz ed section and content) Reason Comments Diabetes Physical Reason Comments Results Reason Onset Date Comments Physical Immunizations 05/27/2022 Flu vaccination Specialty Diagnoses / Procedures Referred By Contac t Referred To Contact Family Medicine / FAMILY MEDICINE Diagnoses My a1c and general overall health Procedures [facility] Pcp, Juan R Ascencio MD [address] [place] [address] Referral ID Status Reason Start Date Expiration Date V isits Requested Visits Authorized [id number] Pending Review 05/04/2022 08/02/2022 1 1 Reason [...] DSME/MNT MEDICAL NUTRITION ASSMT&IVNTJ INDIV EACH 15 TX MEDICAL NUTRITION ASSMT&IVNTJ INDIV EACH 15 TX MEDICAL NUTRITION ASSMT&IVNTJ INDIV EACH 15 [place] MEDICAL NUTRITION ASSMT&IVNTJ INDIV EACH 15 [place] PodIndia breen APRN.PACKAGE CHECKER [address] [place] [address] Phone: tel: fax: Endocrinology [address] [place] [address] Phone: tel: Referral ID Status Reason Start Date Expiration Date V isits Requested Visits Authorized [id number] Closed PCP Requested Referral 12/23/2023 12/22/2024 1 1 Reason Comments Constipation X9 days, used mag ci trate w/o relief Care Teams (unrecognized sec tion and content) Centerless Grinder Set Up Operator Relationship Specialty Start Date End Date Juan R Osullivan MD [address] [place], [place] [id number] PCP - General Family Practice 05/05/17 Centerless Grinder Set Up Operator Relationship Specialty Start Date End Date Juan R Osullivan MD [address] [place], [place] [id number] PCP - General Family Practice 05/05/17 Centerless Grinder Set Up Operator Relationship Specialty Start Date End Date Juan R Osullivan MD [address] [place], [place] [id number] PCP - General Family Medicine 05/05/17 Centerless Grinder Set Up Operator Relationship Specialty Start Date End Date Juan R Osullivan MD [address] [facility] [place] [address] PCP - General Family Medicine 05/05/17 Centerless Grinder Set Up Operator Relationship Specialty Start Date End Date Juan R Osullivan MD [address] [facility] [place] [address] PCP - General Family Medicine 05/05/17 Centerless Grinder Set Up Operator Relationship Specialty Start Date End Date Juan R Osullivan MD [address] [facility] [place] [address] PCP - General Family Medicine 05/05/17 Centerless Grinder Set Up Operator Relationship Specialty Start Date End Date Juan R Osullivan MD [address] [facility] [place] [address] PCP - General Family Medicine 05/05/17 Centerless Grinder Set Up Operator Relationship Specialty Start Date End Date Juan R Osullivan MD [address] [facility] [place] [address] PCP - General Family Medicine 05/05/17 Centerless Grinder Set Up Operator Relationship Specialty Start Date End Date Juan R Osullivan MD [address] [facility] [place] [address] PCP - General Family Medicine 05/05/17 Centerless Grinder Set Up Operator Relationship Specialty Start Date End Date Juan R Osullivan MD [address] [facility] [place] [address] PCP - General Family Medicine 05/05/17 Centerless Grinder Set Up Operator Relationship Specialty Start Date End Date Juan R Osullivan MD [address] [facility] [place] [address] PCP - General Family Medicine 05/05/17 Centerless Grinder Set Up Operator Relationship Specialty Start Date End Date Juan R Osullivan MD [address] [facility] [place] [address] PCP - General Family Medicine 05/05/17 Centerless Grinder Set Up Operator Relationship Specialty Start Date End Date Juan R Osullivan MD [address] [facility] [place] [address] PCP - General Family Medicine 05/05/17 Centerless Grinder Set Up Operator Relationship Specialty Start Date End Date Juan R Osullivan MD [address] [facility] [place] [address] PCP - General Family Medicine 05/05/17 Centerless Grinder Set Up Operator Relationship Specialty Start Date End Date Juan R Osullivan MD [address] [place] [address] PCP - General Family Medicine 05/05/17 Centerless Grinder Set Up Operator Relationship Specialty Start Date End Date Juan R Osullivan MD [address] [place] [address] PCP - General Family Medicine 05/05/17 PodlogarIndia APRN.PACKAGE CHECKER [address] [facility] [place] [address] Supervisor Cytology Family Medicine 06/30/24 Centerless Grinder Set Up Operator Relationship Specialty Start Date End Date Juan R Osullivan MD [address] [facility] [place] [address] PCP - General Family Medicine 05/05/17 Podlogar, ANDRES Osborne.PACKAGE CHECKER [address] [facility] [place] [address] [facility] 06/30/24 Karla Almonte APRN.PACKAGE CHECKER [address] [facility] [place] [address] [facility] 10/15/24 Centerless Grinder Set Up Operator Relationship Specialty Start Date End Date Juan R Osullivan MD [address] [facility] [place] [address] PCP - General Family Medicine 05/05/17 PodlogarIndia SHIPPER RECEIVER.PACKAGE CHECKER [address] [place] [address] [facility] 06/30/24 Karla Almonte APRN.PACKAGE CHECKER [address] [place] [address] [facility] 10/15/24 Centerless Grinder Set Up Operator Relationship Specialty Start Date End Date Juan R Osullivan MD [address] [facility] [place] [address] PCP - General Family Medicine 05/05/17 PodlogarIndia SHIPPER RECEIVER.PACKAGE CHECKER [address] [place] [address] [facility] 06/30/24 Karla Almonte SHIPPER RECEIVER.PACKAGE CHECKER [address] [facility] [place] [address] [facility] 01/03/25 Centerless Grinder Set Up Operator Relationship Specialty Start Date End Date Juan R Osullivan MD [address] [facility] [place] [address] PCP - General Family Medicine 05/05/17 India Tavares, SHIPPER RECEIVER.PACKAGE CHECKER [address] [place], [place] [id number] [facility] 06/30/24 Karla Almonte APRN.PACKAGE CHECKER [address] [place], [place] [address] [facility] 01/03/25 (unrecognized sect ion and content) No Status Records FoundNo Status Records FoundNo Status Records Found INFORMATION SOURCE (unrecogn ized section and content) DATE CREATED AUTHOR 12/26/2023 [facility] DATE CREATED AUTHOR AUTHOR'S ORGANIZ ATION 03/10/2024 [facility] DATE CREATED AUTHOR AUTHOR'S ORGANIZ ATION 11/26/2024 [facility] FOR RECORDS PERTAINING TO [...] BE BASED ON THE PRIMARY CLINICAL RECORDS. [employer] [facility]. provides no warranty or guarantee of the accuracy or completeness of information in this document.
--- OUTSIDE RECORDS SUMMARY | 2025-03-17 12:39 | XMS RPT_ITS | CCD ---
Author Organization [facility] Care Team Providers Care Fur Drummer Name Role Phone Juan R Osullivan MD Primary Care Provider Referred, Self Attending Unavailable Referred, Self Attending Unavailable Juan R Osullivan MD Primary Care Provider Podlogar TUBULAR RIVETER.[place] OLMEDO Unavailable [place] TUBULAR RIVETER.Karla OLMEDO Unavailable PODLOGAR, [place] Referring Unavailable JUAN R OSULLIVAN Primary Care Unavailab le PODLOGAR, [place] Attending Unavailable JUAN R OSULLIVAN Primary Care Unavailab le [place] TUBULAR RIVETER.Karla OLMEDO Unavailable Allergies Allergy Classification Reported Allergen(s) Allergy Type Date of Onset Reaction(s) Facility Angiotensin 2 Receptor Blockers (ARB) (1 source) Losartan Drug Allergy 2 GI Upset [facility] Work Phone: (20 sources) Seasonal allergy; Translations: [SEASONAL ALLERGIES] Allergy to substance 7 Other: See [facility] (20 sources) Losartan; Translations: [LOSARTAN] Drug Allergy 2 GI Upset [facility] Work Phone: (1 source) ALLERGIES NOT ON FILE; Translations: [ALLERGIES NOT ON FILE] Propensity to adverse reactions (disorder) [facility] Medications Current Medications Medication Drug Class(es) [...] Comment on above: Take 1 tablet by nige th once daily. CPAP (20 sources) Start: [...] 2 diabetes mellitus with hyperglycemia, unspecified whether care home insulin use (HCC) Take 1 tablet by [...] inge th once daily. polyethylene glycol 3350 64926 mg powder for oral solution (1 source) [...] (FLONASE) 50 mcg/actuation nasal spray Use 1 Pomeroy in each nostril once daily. 0 05/27/2022 Discontinued Comment on above: Use 1 Pomeroy in each nostril once daily. losartan potassium [...] 03-15-2025 IMPRESSION: Moderate to large stool burden. Manager School: [employer] Transcribe Date/Time: Mar 15 2025 2:49P [...] OF RADIOLOGY Provider, [facility] - 03/15/2025 * * *Final Report* * [...] IMPRESSION IMPRESSION: Moderate to large stool burden. Manager School: [employer] Transcribe Date/Time: Mar 15 2025 2:49P Dictated by : RAUL YUSUF MD This examination was interpreted and the report reviewed and electronically signed by: RAUL YUSUF MD on Mar 15 2025 2:49PM EST [facility] Radiology Study observation (narrative) [facility] XR Abdomen Supine and Uprigh tOrdered By: Cc Provider on 03-15-2025 [facility] Steven 11-14-2024 CNPN Telephone (FAMPWS) PHI GONZALEZ ([id number]) 1965 M Date Time Provider Department 11/14/24 [...] Encounter Status:Closed by JESSICA WYNN on 11/14/[address] [facility] 10-18-2024 CNNURSE Nurse Visit (EDEDSJ) PHI GONZALEZ ([id number]) 1965 M Date Time Provider Department 10/18/24 3:00 PM DANIELE MCKEON During your visit today, we recorded the following information about you: Daniele Mckeon RN 10/18/2024 6:00 PM Signed DIABETES SELF-MANAGEMENT EDUCATION AND SUPPORT Location: [facility] Type of visit: Virtual (with video) individual I have communicated my name and active licensure. The patient's identity and physical location were verified at the time of this visit. 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 Normal [facility] Steven 08-29-2024 CNPN Telephone (FAMPWS) LISAPHI ([id number]) 1965 M Date Time Provider Department 08/29/24 [...] 1 month for DM follow up. Jessica Wnyn LPN 08/29/2024 2:25 PM Signed Phoned patient [...] 2 diabetes mellitus with hyperglycemia, unspecified whether parts counterman insulin use (HCC) [E11.65] Order(s):empaglifloz in (JARDIANCE) [...] Encounter Status:Closed by JESSICA WYNN on 08/29/24 [facility] 06-27-2024 CNPN Telephone (FAMPWS) PHI GONZALEZ ([id number]) 1965 M Date Time Provider Department 06/27/24 JUAN R OSULLIVAN During your visit today, we recorded the following information about you: India Miller 06/27/2024 9:53 AM Signed Derik is calling Juan R Osullivan MD today to request an order for labs for his upcoming appointment. Please send a message in Biglion when labs are ordered. TY Patient has been identified by name and birthdate. Duration of symptoms: N/A Person calling: self Call patient at: at home [phone] (home) [phone] (cell) Was an appointment scheduled: No Closing statement: Results or non-symptom based questions: Thank you for calling [facility], your call will be returned within the next business day. Juan R Meng MD 06/27/2024 11:27 AM Signed Labs ordered to be completed 1-2 days prior to OV. Anthony Curran RN 06/27/2024 11:56 AM Signed [employer] msg sent to pt as requested. Allergies As of Date: 06/27/2024 Noted Allergy Reaction LOSARTAN 05/27/2022 8 - GI Upset SEASONAL ALLERGIES 05/05/2017 14 - Other: See Comments Comments: Watery eyes, cough, and stuffy nose Date Reviewed: 12/05/2023 Reviewed by: Trevor Hill LPN - Fully Assessed Reason for Visit: Orders [681] Primary Visit Diagnosis:Type 2 diabetes mellitus with hyperglycemia, unspecified whether care home insulin use (HCC) [E11.65] Order(s):ALBUMIN/CRE ATININE RATIO, URINE [SQUACR] Order #: [id number] FUTURE COMPREHENSIVE METABOLIC PANEL [SQCMP] Order #: [id number] FUTURE HEMOGLOBIN A1C [RGAME4H] Order #: [id number] FUTURE COMPLETE BLOOD COUNT AND DIFFERENTIAL [SQCBCDIF] Order #: [id number] FUTURE LIPID PANEL, NONFASTING [SQLIPNF] Order #: [id number] FUTURE Prescriptions as of 06/27/2024 - empagliflozin [...] Status:Closed by ANTHONY CURRAN on 06/27/24 Normal [facility] CNCOon 05-07-2024 CNCO Letter Text Normal [facility] CNPNon 03-06-2024 CNPN Telephone (FAMPWS) PHI GONZALEZ ([id number]) 1965 M Date Time Provider Department 03/06/24 [facility]AN R [facility]ULLIVAN [facility] During your visit today, we recorded the following information about you: Daniele Cortez 03/06/2024 8:43 AM Signed Patient called to request lab orders for his upcoming follow up appt with Dr. Osullivan. Please call him at [phone] when placed. Juan R Osullivan MD 03/06/2024 10:06 AM Signed Labs ordered. Come in this week to have them done so we can review at his appointment. Iliana Irving LPN 03/06/2024 10:26 AM Signed Phoned patient left message to return call and ask to speak to a nurse. Yudi Pimentel MA 03/09/2024 10:51 AM Signed [employer] message sent to pt notifying him we [...] 2 diabetes mellitus with hyperglycemia, unspecified whether care home insulin use (HCC) [E11.65] Order(s):COMPLETE BLOOD COUNT AND DIFFERENTIAL [SQCBCDIF] Order #: [id number] FUTURE COMPREHENSIVE METABOLIC PANEL [SQCMP] Order #: [id number] FUTURE HEMOGLOBIN A1C [QYAIC8W] Order #: [id number] FUTURE ALBUMIN/CREATININE RATIO, URINE [SQUACR] Order #: [id number] FUTURE LIPID PANEL, NONFASTING [SQLIPNF] Order #: [id number] FUTURE Prescriptions as of 03/12/2024 - empagliflozin [...] Encounter Status:Closed by JESSICA WYNN on 03/12/24 [facility] Steven 02-02-2024 [place] Telephone (PHMEWO) PHI GONZALEZ ([id number]) 1965 M Date Time Provider Department 02/02/24 [...] Charisse Nguyen, PharmD, BCACP Primary Care Clinical Grievance And Appeals Specialist 02/02/2024 3:57 PM Madi Regan 02/02/2024 5:06 PM Signed Telephoned the patient regarding missed appt. Left a message. First attempt. Jennifer Regan HUC 02/03/2024 9:35 AM Addendum Telephoned the patient to schedule a new Primary Care pharmacy appt. Left a message.Second attempt. Made two attempts to contact the patient. Patient was sent [employer] message. If the patient returns a call, an appt will be scheduled. Madi Regan 02/09/2024 10:26 AM Signed Patient has not responded to outreach attempts via phone or Plaxicah[employer]. Two attempts to contact have been made. Routing to [facility]. Allergies As of Date: 02/02/2024 Noted Allergy [...] Encounter Status:Closed by MADI REGAN on 02/02/24 [facility] [place] Telephone (NANCY) PHI GONZALEZ ([id number]) 1965 M Date Time Provider Department 01/27/24 [...] calling: self Call patient at: at home [phone] (home) [phone] (cell) Was an appointment scheduled: No Closing statement: Results or non-symptom based questions: Thank you for calling [facility], your call will be returned within [...] Status:Closed by JESSICA WYNN on 01/27/24 Normal [facility] Steven 12-26-2023 CNPN Telephone (PHARMN) PHI GONZALEZ ([id number]) 1965 M Date Time Provider Department 12/26/23 PHARMACIST PHARMN During your visit today, we recorded the following information about you: McconnellHemalatha Dodge 12/26/2023 10:26 AM Signed Called and spoke to patient to schedule Primary Care Pharmacy consult on 02/02/2024 (soonest available at [facility]). Allergies As of Date: 12/26/2023 Noted Allergy [...] Status:Closed by HEMALATHA DELANEY on 12/26/23 Normal [facility] Albumin/Creatinineon 30-2 024 Albumin/Creatinine DL <= 20 mg/L (U) [Mass ratio] 6.2 ug/mg Creat Normal <30.0 [facility] Comment on above: Performed By: #### 1 4959-1 #### TAO Loza ([id number]) [facility] ([facility]) [id number] [place] [address] 24796 Albumin/Creatinine DL <= 20 mg/L (U) [Mass ratio]on 12-22-2023 Albumin DL <= 20 mg/L (U) [Mass/Vol] 10.2 mg/L Normal Not established [facility] Comment on above: Performed By: #### 1 4959-1 #### TAO Loza ([id number]) [facility] ([facility]) [id number] [place] [address] 44790 Creatinine (U) [Mass/Vol] 163.9 mg/dL Normal 20.0-370.0 [facility] Comment on above: Performed By: #### 1 4959-1 #### TAO Loza ([id number]) [facility] ([facility]) [id number] [place] [address] 17715 CBC W Auto Differential pane l (Bld)on 12-22-2023 Basophils (Bld) [#/Vol] 0.06 x10*3/uL Normal 0.00-0.10 [facility] Comment on above: Performed By: #### 5 7021-8 #### ISABEL MENDEZ ([id number]) [facility]) [address] [place] [address] 24288 Basophils/100 WBC (Bld) 0.9 % Normal 0.0-2.0 [facility] Comment on above: Performed By: #### 5 7021-8 #### ISABEL MENDEZ (05853) [facility]) [address] [place] [address] 82539 Eosinophils (Bld) [#/Vol] 0.27 x10*3/uL Normal 0.00-0.70 [facility] Comment on above: Performed By: #### 5 7021-8 #### ISABEL MENDEZ (93091) [facility]) [address] [place] [address] 32336 Eosinophils/100 WBC (Bld) 4.1 % Normal 0.0-6.0 [facility] Comment on above: Performed By: #### 5 7021-8 #### ISABEL MENDEZ (47287) [facility]) [address] [place] [address] 72650 Erythrocyte distribution width (RBC) [Ratio] 12.1 % Normal 11.5-14.5 [facility] Comment on above: Performed By: #### 5 7021-8 #### ISABEL MENDEZ (18809) [facility]) [address] [place] [address] Hematocrit (Bld) [Volume fraction] 46.0 % Normal 41.0-52.0 [facility] Comment on above: Performed By: #### 5 7021-8 #### ISABEL MENDEZ (91813) [facility]) [address] [place] [address] Hemoglobin (Bld) [Mass/Vol] 15.3 g/dL Normal 13.5-17.5 [facility] Comment on above: Performed By: #### 5 7021-8 #### ISABEL MENDEZ ([id number]) [facility]) [address] [place] [address] 76269 Immature granulocytes (Bld) [#/Vol] 0.02 x10*3/uL Normal 0.00-0.70 [facility] Comment on above: Performed By: #### 5 7021-8 #### ISABEL MENDEZ ([id number]) [facility]) [address] [place] [address] 45935 Immature granulocytes/100 WBC (Bld) 0.3 % Normal 0.0-0.9 [facility] Comment on above: Result Comment: Debra ture Granulocyte Count (IG) includes promyelocytes, myelocytes and metamyelocytes but does not include bands. Percent differential counts (%) should be interpreted in the context of the absolute cell counts (cells/UL). Performed By: #### 5 7021-8 #### ISABEL MENDEZ ([id number]) [facility]) [address] [place] [address] 78558 Lymphocytes (Bld) [#/Vol] 2.00 x10*3/uL Normal 1.20-4.80 [facility] Comment on above: Performed By: #### 5 7021-8 #### ISABEL MENDEZ (67073) [facility]) [address] [place] [address] 29844 Lymphocytes/100 WBC (Bld) 30.4 % Normal 13.0-44.0 [facility] Comment on above: Performed By: #### 5 70-8 #### ISABEL MENDEZ ([id number]) [facility]) [address] [place] [address] 40190 MCH (RBC) [Entitic mass] 28.9 pg Normal 26.0-34.0 [facility] Comment on above: Performed By: #### 5 7021-8 #### ISABEL MENDEZ ([id number]) [facility]) [address] [place] [address] 71443 MCHC (RBC) [Mass/Vol] 33.3 g/dL Normal 32.0-36.0 [facility] Comment on above: Performed By: #### 5 7021-8 #### ISABEL MENDEZ (75587) [facility] ([facility]) [address] [place] [address] 18694 MCV (RBC) [Entitic vol] 87 fL Normal 80-100 [facility] Comment on above: Performed By: #### 5 7021-8 #### ISABEL MENDEZ ([id number]) [facility] ([facility]) [address] [place] [address] 33140 Monocytes (Bld) [#/Vol] 0.35 x10*3/uL Normal 0.10-1.00 [facility] Comment on above: Performed By: #### 5 7021-8 #### ISABEL MENDEZ (05425) [facility] ([facility]) [address] [place] [address] 80901 Monocytes/100 WBC (Bld) 5.3 % Normal 2.0-10.0 [facility] Comment on above: Performed By: #### 7021-8 #### ISABEL MENDEZ (83971) [facility] ([facility]) [address] [place] [address] 04959 Neutrophils (Bld) [#/Vol] 3.87 x10*3/uL Normal 1.20-7.70 [facility] Comment on above: Result Comment: Perc ent differential counts (%) should be interpreted in the context of the absolute cell counts (cells/uL). Performed By: #### 5 7021-8 #### ISABEL MENDEZ (23067) [facility]) [address] [place] [address] 71879 Neutrophils/100 WBC (Bld) 59.0 % Normal 40.0-80.0 [facility] Comment on above: Performed By: #### 5 7021-8 #### ISABEL MENDEZ (24358) [facility] ([facility]) [address] [place] [address] 33919 Nucleated RBC/100 WBC (Bld) [Ratio] 0.0 /100 WBCs Normal 0.0-0.0 [facility] Comment on above: Performed By: #### 5 7021-8 #### ISABEL MENDEZ (17101) [facility] ([facility]) [address] [place] [address] 46171 Platelets (Bld) [#/Vol] 272 x10*3/uL Normal 150-450 [facility] Comment on above: Performed By: #### 5 7021-8 #### ISABEL MENDEZ (56890) [facility]) [address] [place] [address] 17206 RBC (Bld) [#/Vol] 5.30 x10*6/uL Normal 4.50-5.90 [facility] Comment on above: Performed By: #### 5 7021-8 #### ISABEL MENDEZ (00546) [facility] ([facility]) [address] [place] [address] 67260 WBC (Bld) [#/Vol] 6.6 x10*3/uL Normal 4.4-11.3 [facility] Comment on above: Performed By: #### 5 7021-8 #### ISABEL MENDEZ ([id number]) [facility] ([facility]) [address] [place] [address] Cholesterol in LDL Direct as say [Mass/Vol]on 12-22-2023 Cholesterol in LDL [Mass/Vol] 110 mg/dL Normal 0-129 [facility] Comment on above: Order Comment: [place] felicia levels of LDL cholesterol are recognized as a [place] factor in the development of atherosclerosis and CHD. The direct LDL cholesterol test can be used to assess cardiovascular risk and monitor therapy as a follow up to a lipid profile when triglycerides are significantly elevated. Performed By: #### 1 8262-6 #### TAO Loza (55493) [facility] ([facility]) [address] [place] [address] Comprehensive metabolic 2000 panelon 12-22-2023 Albumin BCP dye [Mass/Vol] 3.9 g/dL Normal 3.4-5.0 [facility] Comment on above: Performed By: #### 2 4323-8 #### ISABEL MENDEZ (52066) [facility] ([facility]) [address] [place] [address] 20007 ALP [Catalytic activity/Vol] 56 U/L Normal 33-120 [facility] Comment on above: Performed By: #### 2 4323-8 #### ISABEL MENDEZ (20011) [facility] ([facility]) [address] [place] [address] 45267 ALT With P-5'-P [Catalytic activity/Vol] 22 U/L Normal 10-52 [facility] Comment on above: Result Comment: Ofelia ents treated with Sulfasalazine may generate falsely decreased results for ALT. Performed By: #### 2 4323-8 #### ISABEL MENDEZ ([id number]) [facility] ([facility]) [facility] [place] [address] Anion gap [Moles/Vol] 11 mmol/L Normal 10-20 [facility] Comment on above: Performed By: #### 2 4323-8 #### ISABEL MENDEZ ([id number]) [facility] ([facility]) [facility] [place] [address] AST With P-5'-P [Catalytic activity/Vol] 14 U/L Normal 9-39 [facility] Comment on above: Performed By: #### 2 4323-8 #### ISABEL MENDEZ (75438) [facility] ([facility]) [address] [place] [address] Bilirubin [Mass/Vol] 0.7 mg/dL Normal 0.0-1.2 [facility] Comment on above: Performed By: #### 2 4323-8 #### ISABEL MENDEZ (20041) [facility] ([facility]) [address] [place] [address] 25075 Calcium [Mass/Vol] 9.1 mg/dL Normal 8.6-10.3 [facility] Comment on above: Performed By: #### 2 4323-8 #### ISABEL MENDEZ (11952) [facility] ([facility]) [address] [place] [address] 84108 Chloride [Moles/Vol] 103 mmol/L Normal 98-107 [facility] Comment on above: Performed By: #### 2 4323-8 #### ISABEL MENDEZ (95802) [facility] ([facility]) [address] [place] [address] CO2 [Moles/Vol] 26 mmol/L Normal 21-32 [facility] Comment on above: Performed By: #### 2 4323-8 #### ISABEL MENDEZ ([id number]) [facility] ([facility]) [address] [place] [address] 66181 Creatinine [Mass/Vol] 0.87 mg/dL Normal 0.50-1.30 [facility] Comment on above: Performed By: #### 2 4323-8 #### ISABEL MENDEZ (00542) [facility] ([facility]) [address] [place] [address] 94314 GFR/1.73 sq M.predicted MDRD (S/P/Bld) [Vol rate/Area] mL/min/{1.73_m2} Normal >60 [facility] Comment on above: Result Comment: Calc ulations of estimated GFR are performed using the 2021 CKD-EPI Study Refit equation without the race variable for the IDMS-Traceable creatinine methods. https://jasn.asnjournals.org/content//ASN.76354113 88 Performed By: #### 2 4323-8 #### ISABEL MENDEZ (82478) [facility] ([facility]) [address] [place] [address] 03790 Glucose [Mass/Vol] 217 mg/dL High 74-99 [facility] Comment on above: Performed By: #### 2 4323-8 #### ISABEL MENDEZ (94813) [facility] ([facility]) [address] [place] [address] 05943 Potassium [Moles/Vol] 3.8 mmol/L Normal 3.5-5.3 [facility] Comment on above: Performed By: #### 2 3-8 #### ISABEL MENDEZ (42788) [facility] ([facility]) [address] [place] [address] 30630 Protein [Mass/Vol] 7.1 g/dL Normal 6.4-8.2 [facility] Comment on above: Performed By: #### 2 4323-8 #### ISABEL MENDEZ ([id number]) [facility] ([facility]) [address] [place] [address] 45256 Sodium [Moles/Vol] 136 mmol/L Normal 136-145 [facility] Comment on above: Performed By: #### 2 4323-8 #### ISABEL MENDEZ (59090) [facility] ([facility]) [address] [place] [address] 74929 Urea nitrogen [Mass/Vol] 15 mg/dL Normal 6-23 [facility] Comment on above: Performed By: #### 2 4323-8 #### ISABEL MENDEZ (50736) [facility] ([facility]) [address] [place] [address] 50900 HbA1c (Bld) [Mass fraction]o n 12-22-2023 Average glucose Estimated from glycated hemoglobin (Bld) [Mass/Vol] 278 mg/dL Normal Not Established [facility] Comment on above: Order Comment: Diagn osis of Diabetes-Adults Non-Diabetic: < or = 5.6% Increased risk for developing diabetes: 5.7-6.4% Diagnostic of diabetes: > or = 6.5% Monitoring of Diabetes Age (y)....................... Therapeutic Goal (%) Adults: >18.........................<7.0 Pediatrics: 13-18...................<7.5 Pediatrics: 7-12....................<8.0 Pediatrics: 0-6..................... 7.5-8.5 [place] [employer]. Diabetes Care 33(S1), Jul 2009 Performed By: #### 4 548-4 #### HALL ANDREA (11290) [facility]) [address] [place] [address] Hemoglobin A1c/Hemoglobin.to yamileth 12-22-2023 HbA1c (Bld) [Mass fraction] 11.3 % High see below [facility] Comment on above: Order Comment: Diagn osis of Diabetes-Adults Non-Diabetic: < or = 5.6% Increased risk for developing diabetes: 5.7-6.4% Diagnostic of diabetes: > or = 6.5% Monitoring of Diabetes Age (y)....................... Therapeutic Goal (%) Adults: >18.........................<7.0 Pediatrics: 13-18...................<7.5 Pediatrics: 7-12....................<8.0 Pediatrics: 0-6..................... 7.5-8.5 [place] [employer]. Diabetes Care 33(S1), Jul 2009 Performed By: #### 4 548-4 #### ISABEL MENDEZ (99890) [facility] ([facility]) [facility] [place] [address] Lipid 1996 panelon 4 Cholesterol [Mass/Vol] 155 mg/dL Normal 0-199 [facility] Comment on above: Result Comment: [...] By: #### 2 4331-1 #### ISABEL MENDEZ (18175) [facility]) [facility] [place] [address] Cholesterol in HDL [Mass/Vol] 32.0 mg/dL Normal [facility] Comment on above: Result Comment: Age Very Low Low Normal High 0-19 Y < 35 < 40 40-45 ---- 20-24 Y ---- < 40 >45 ---- >24 Y ---- < 40 40-60 >60 Performed By: #### 2 4331-1 #### ISABEL MENDEZ (74742) [facility] ([facility]) [facility] [place] [address] Cholesterol in LDL [Mass/Vol] 86 mg/dL Normal <=99 [facility] Comment on above: Result Comment: Near Borderline AGE Desirable Optimal High High Very High 0-19 Y 0 - 109 --- 110-129 >/= 130 ---- 20-24 Y 0 - 119 --- 120-159 >/= 160 ---- >24 Y 0 - 99 100-129 130-159 160-189 >/=190 Performed By: #### 2 4331-1 #### ISABEL MENDEZ (11649) [facility] LAB ([facility]) [address] [place] [address] [id number] Cholesterol in VLDL [Mass/Vol] 37 mg/dL Normal 0-40 [facility] Comment on above: Performed By: #### 2 4331-1 #### ISABEL MENDEZ ([id number]) [facility] ([facility]) [address] [place] [address] 06059 CHOLESTEROL/HDL RATIO 4.8 Normal [facility] Comment on above: Result Comment: Ref Values Desirable < 3.4 High Risk > 5.0 Performed By: #### 2 4331-1 #### ISABEL MENDEZ ([id number]) [facility] ([facility]) [address] [place] [address] 36650 NON HDL CHOLESTEROL 123 mg/dL Normal 0-149 [facility] Comment on above: Result Comment: Age Desirable Borderline High High Very High 0-19 Y 0 - 119 120 - 144 >/= 145 >/= 160 20-24 Y 0 - 149 150 - 189 >/= 190 ---- >24 Y 30 mg/dL above LDL Cholesterol goal Performed By: #### 2 4331-1 #### ISABEL MENDEZ ([id number]) [facility] ([facility]) [address] [place] [address] 17742 Triglyceride [Mass/Vol] 186 mg/dL High 0-149 [facility] Comment on above: Result Comment: [...] By: #### 2 4331-1 #### ISABEL MENDEZ ([id number]) [facility] ([facility]) [address] [id number] [facility] CNPN Telephone (FAMPWS) PHI GONZALEZ ([id number]) 1965 M Date Time Provider Department 12/13/23 JUAN R OSULLIVAN During your visit today, we recorded the following information about you: Carole Greer 12/13/2023 11:53 AM Signed Derik is calling Juan R Osullivan MD today with concern regarding CPAP order. Patient states that when he was in office a CPAP machine order was to be faxed to [facility]. [facility] has not yet received the order. Patient asking for the order to be faxed to [facility] today. Patient has been identified by name and birthdate. Duration of symptoms: N/A Person calling: self Call patient at: on cell [phone] (home) [phone] (cell) Was an appointment scheduled: No Closing statement: Results or non-symptom based questions: Thank you for calling [facility], your call will be returned within the next business day. Trevor Tidwell LPN 12/13/2023 1:24 PM Signed Order, demographics and office note faxed to [facility] at [phone]. Patient telephoned and notified. Will follow up with [facility]. Patient will call office back if has [...] Encounter Status:Closed by TREVOR HILL on 12/13/23 [facility] 12-05-2023 [facility] Office Visit ([facility]) PHI GONZALEZ ([id number]) 1965 M Date Time Provider Department 12/05/23 [...] Morbid obesity with BMI of 40.0-44.9, adult ([facility]) SILVANO (obstructive sleep apnea) severe Seasonal allergies Snoring Type 2 diabetes mellitus without complication, without long-term current use of insulin ([facility]) 03/09/2021 ALLERGIES Losartan and Seasonal Allergies MEDICATIONS [...] done I (more content not included)... Normal [facility] CBC panel Auto (Bld)on 05-27 Erythrocyte distribution width (RBC) [Ratio] 12.2 % 11.5 - 15.0 % [facility] Hematocrit (Bld) [Volume fraction] 50.3 % 39.0 - 51.0 % [facility] Hemoglobin (Bld) [Mass/Vol] 16.8 g/dL 13.0 - 17.0 g/dL [facility] MCH (RBC) [Entitic mass] 29.4 pg 26.0 - 34.0 pg [facility] MCHC (RBC) [Mass/Vol] 33.4 g/dL 30.5 - 36.0 g/dL [facility] MCV (RBC) [Entitic vol] 88.1 fL 80.0 - 100.0 fL [facility] Nucleated RBC (Bld) [#/Vol] <0.01 k/uL [facility] Platelet mean volume (Bld) [Entitic vol] 9.4 fL 9.0 - 12.7 fL [facility] Platelets (Bld) [#/Vol] 274 10*3/uL 150 - 400 k/uL [facility] RBC (Bld) [#/Vol] 5.71 10*6/uL 4.20 - 6.00 m/uL [facility] WBC (Bld) [#/Vol] 10.76 10*3/uL 3.70 - 11 .00 k/uL [facility] Vital Signs Date Time Vital Sign Value Performing Clinician Scar nicole 03-15-2025 14:14-0400 Body mass index (BMI) [Ratio] 39.03 kg/m2 Ingrid Saravia APRN.CNP Work Phone: [facility] 03-15-2025 14:140400 Body temperature 97.81 [degF] Ingrid Saravia APRN.PLASTER BLOCK LAYER Work Phone: [facility] 03-15-2025 14:14040 Body weight 117.5 kg Ingrid Saravia APRN.CNP Work Phone: [facility] 03-15-2025 14:140400 Diastolic blood pressure 100 mm[Hg] Ingrid Saravia APRN.CNP Work Phone: [facility] 03-15-2025 14:14-0400 Heart rate 79 /min Ingrid Saravia TUBULAR RIVETER.PLASTER BLOCK LAYER Work Phone: [facility] 03-15-2025 14:14-0400 Respiratory rate 18 /min Ingrid Saravia TUBULAR RIVETER.PLASTER BLOCK LAYER Work Phone: [facility] 03-15-2025 14:14-0400 SaO2% (BldA) [Mass fraction] 99 % Ingrid Saravia TUBULAR RIVETER.PLASTER BLOCK LAYER Work Phone: [facility] 03-15-2025 14:14-0400 Systolic blood pressure 151 mm[Hg] Ingrid Saravia TUBULAR RIVETER.PLASTER BLOCK LAYER Work Phone: [facility] 12-05-2023 14:47-0400 Body mass index (BMI) [Ratio] 39.84 kg/m2 India Podlogar TUBULAR RIVETER.PLASTER BLOCK LAYER Work Phone: [facility] 12-05-2023 14:47-0400 Body weight 119.93 kg India Podlogar TUBULAR RIVETER.PLASTER BLOCK LAYER Work Phone: [facility] 12-05-2023 14:47-0400 Diastolic blood pressure 86 mm[Hg] India Podlogar TUBULAR RIVETER.PLASTER BLOCK LAYER Work Phone: [facility] 12-05-2023 14:47-0400 Heart rate 85 /min India Podlogar TUBULAR RIVETER.PLASTER BLOCK LAYER Work Phone: [facility] 12-05-2023 14:47-0400 Respiratory rate 18 /min India Podlogar TUBULAR RIVETER.PLASTER BLOCK LAYER Work Phone: [facility] 12-05-2023 14:47-0400 SaO2% (BldA) [Mass fraction] 96 % India Podlogar TUBULAR RIVETER.PLASTER BLOCK LAYER Work Phone: [facility] 12-05-2023 14:47-0400 Systolic blood pressure 128 mm[Hg] India Podlogar TUBULAR RIVETER.PLASTER BLOCK LAYER Work Phone: [facility] 05-27-2022 13:23-0400 Body height 173.5 cm Juan R Osullivan MD Work Phone: [facility] 05-27-2022 13:23-0400 Body weight 125.47 kg Juan R Osullivan MD Work Phone: [facility] 05-27-2022 13:23-0400 Diastolic blood pressure 78 mm[Hg] Juan R Osullivan MD Work Phone: [facility] 05-27-2022 13:23-0400 Heart rate 89 /min Juan R Osullivan MD Work Phone: [facility] 05-27-2022 13:23-0400 Respiratory rate 16 /min Juan R Osullivan MD Work Phone: [facility] 05-27-2022 13:23-0400 SaO2% (BldA) [Mass fraction] 96 % Juan R Osullivan MD Work Phone: [facility] 05-27-2022 13:23-0400 Systolic blood pressure 150 mm[Hg] Juan R Osullivan MD Work Phone: [facility] 11-04-2021 13:50-0400 Diastolic blood pressure 94 mm[Hg] India Podlogar TUBULAR RIVETER.PLASTER BLOCK LAYER Work Phone: [facility] 11-04-2021 13:50-0400 Heart rate 88 /min India Podlogar TUBULAR RIVETER.PLASTER BLOCK LAYER Work Phone: [facility] 11-04-2021 13:50-0400 Systolic blood pressure 149 mm[Hg] India Podlogar TUBULAR RIVETER.PLASTER BLOCK LAYER Work Phone: [facility] 11-04-2021 13:12-0400 Body weight 121.66 kg India Podlogar TUBULAR RIVETER.PLASTER BLOCK LAYER Work Phone: [facility] 11-04-2021 13:12-0400 Respiratory rate 18 /min India Podlogar TUBULAR RIVETER.PLASTER BLOCK LAYER Work Phone: [facility] 11-04-2021 13:12-0400 SaO2% (BldA) [Mass fraction] 96 % India Podlogar TUBULAR RIVETER.PLASTER BLOCK LAYER Work Phone: [facility] Encounters Encounter Date Encounter Type Care Provider Facility Start: 03-15-2025 End: 03-15-2025 Patient encounter procedure Ingrid Saravia TUBULAR RIVETER.PLASTER BLOCK LAYER Work Phone: [facility] Comment on above: Acute constipation ( Primary Dx); Essential (primary) hypertension; Gastro-esophageal reflux disease without esophagitis; Type 2 diabetes mellitus without complication, unspecified whether parts counterman insulin use (HCC) Start: 03-15-2025 End: 03-15-2025 Subsequent hospital visit by physician Xr [facility] Work Phone: Radiology Comment on above: Acute constipation [ K59.00] Start: 10-18-2024 End: 10-18-2024 Nursing evaluation of patient and report Daniele Mckeon RN Work Phone: [facility] Comment on above: Type 2 diabetes jayme itus with hyperglycemia, unspecified whether parts counterman insulin use (HCC) Start: 10-18-2024 End: 10-18-2024 ambulatory Daniele Mckeon RN Work Phone: [facility] Comment on above: contact information Start: 10-18-2024 End: 10-18-2024 E-mail encounter from caregiver Daniele Mckeon RN Work Phone: [facility] Start: 09-19-2024 End: 09-20-2024 Refill Juan [...] Refill Juan R Osullivan MD Work Phone: [facility] Comment on above: Refill Request Start: 04-17-2024 End: 04-17-2024 Refill Juan R Osullivan MD Work Phone: [facility] Comment on above: Refill Request Start: 03-06-2024 End: 03-12-2024 Patient Msg [facility] Provider [facility] Comment on above: Need lab orders Lab Orders Start: 03-04-2024 ambulatory Self Referred Facility: [facility] Start: 02-22-2024 End: 02-22-2024 ambulatory Self Referred Facility:[facility] Start: 02-14-2024 E-mail encounter virginia baumann caregiver Charisse Wendy [facility] Work Phone: [facility] Start: 02-14-2024 Patient encounter procedure Charissehernandez Nguyen [facility] Work Phone: [facility] Comment on above: Primary Care Pharmac ist Visit Start: 02-02-2024 Telephone encounter Charissehernandez Nguyen [facility] Work Phone: [facility] Comment on above: Missed Appointment ( Pharmacy Visit Rescheduling) Start: 01-27-2024 Telephone encounter India cast TUBULAR RIVETER.PLASTER BLOCK LAYER Work Phone: [facility] Comment on above: Medication Problem ( Patient states that the insulin pen needles were not sent to the pharmacy. Please send script over to his pharmacy ) Start: 12-26-2023 Telephone encounter Pharmacist [facility] Comment on above: Appointment (Primary Care Pharmacy) Start: 12-22-2023 End: 12-22-2023 ambulatory [facility] Start: 12-13-2023 Telephone encounter Pepe Osullivan MD Work Phone: [facility] Comment on above: CPAP order Start: 12-05-2023 End: 12-05-2023 ambulatory INDIA PODLOGAR Facility:[facility] Start: 12-05-2023 End: 12-05-2023 Patient encounter procedure India Tavares APRN.PLASTER BLOCK LAYER Work Phone: [facility] Comment on above: Annual physical exam (Primary Dx); Type 2 diabetes mellitus without complication, without long-term current use of insulin (HCC); Elevated triglycerides with high cholesterol; Essential hypertension; Hyperlipidemia, mixed; SILVANO (obstructive sleep apnea); Depression screening Start: 04-12-2023 End: 04-12-2023 ambulatory India Tavares APRN.PLASTER BLOCK LAYER Work Phone: [facility] Comment on above: Irritant contact ashley matitis, unspecified trigger (Primary Dx) Start: 04-12-2023 End: 04-12-2023 Telemedicine consultation with patient India Tavares APRN.PLASTER BLOCK LAYER Work Phone: [facility] Start: 06-22-2022 Refill Juan R Osullivan MD Work Phone: [facility] Comment on above: Refill Request Start: 06-01-2022 Telephone encounter Pepe Osullivan MD Work Phone: [facility] Comment on above: Erroneous encounter- disregard Start: 05-27-2022 End: 05-27-2022 Patient encounter procedure Juan R Osullivan MD Work Phone: [facility] Comment on above: Annual physical [...] cancer Start: 11-06-2021 Telephone encounter India cast APRN.PLASTER BLOCK LAYER Work Phone: [facility] Comment on above: Results Start: 11-04-2021 End: 11-04-2021 Patient encounter procedure India Tavares APRN.PLASTER BLOCK LAYER Work Phone: [facility] Comment on above: Type 2 diabetes jayme itus without complication, without long- term current use of insulin (HCC) (Primary Dx); Hypertension, essential; SILVANO (obstructive sleep apnea) Procedures Date Procedure Procedure Detail Performing Clinician Start: 03-15-2025 Radiologic exam abdo men 2 views Ingrid Saravia TUBULAR RIVETER.PLASTER BLOCK LAYER Work Phone: Start: 12-05-2023 Adult depression scr eening assessment [facility] Provider Start: 05-27-2022 INFLUENZA VACCINE QUADRIVALENT 6 MO - 64 YRS IM Juan R Osullivan MD Work Phone: Start: 03-06-2021 Adult depression scr eening assessment India Tavares TUBULAR RIVETER.PLASTER BLOCK LAYER Work Phone: Start: 09-22-2017 Colonoscopy India cast TUBULAR RIVETER.PLASTER BLOCK LAYER Work Phone: Plan of Treatment Date Care Activity Detail Author Start: 09-23-2027 Colonoscopy COLONOSCOPY [facility] Start: 09-23-2027 COLORECTAL CANCER SCREENING COLORECTAL CANCER SCREENING [facility] Start: 09-23-2027 Screening for malignant neoplasm of colon [facility] Start: 05-27-2027 PROSTATE CANCER SCREENING DISCUSSION PROSTATE CANCER SCREENING DISCUSSION [facility] Start: 05-27-2027 Prostate specific antigen measurement Prostate Cancer Screening Discussion [facility] Start: 05-05-2027 Urine microalbumin profile [facility] Start: 03-25-2025 Influenza vaccination Influenza Vaccine (#1) [facility] Start: 03-19-2025 End: 03-19-2025 Patient encounter procedure 03/19/2025 7:20 AM EDT Office [facility] [address] [place] [id number] Juan R Osullivan MD [address] [place] [id number] ov to discuss recommendations by DM educator and routine [facility] Comment on above: ov to discuss recommendations by DM educ ator and routine Start: 12-21-2024 Hepatitis B screening Urine Albumin:Creatinine Ratio [facility] Start: 12-21-2024 Hepatitis B surface antibody level LDL Cholesterol [facility] Start: 12-04-2024 Annual PCP Team Chronic Disease Visit Annual PCP Team Chronic Disease Visit [facility] Start: 12-04-2024 Anxiety Screening Anxiety Screening [facility] Start: 12-04-2024 Depression Screening Depression Screening [facility] Start: 12-04-2024 Diabetic foot examination Diabetic Foot Exam [facility] Start: 11-22-2024 End: 11-22-2024 ambulatory 11/22/2024 9:00 AM EDT [facility] [address] [id number] [place] [address] [place] [address] uncontrolled diabetes [facility] Comment on above: uncontrolled diabetes Start: 10-26-2024 End: 10-26-2024 Nursing evaluation of patient and report 10/26/2024 3:00 PM EDT Nurse Visit Diabetic [facility] [address] [place] [address] [place] [address] [place] [address] follow up [facility] Comment on above: follow up Start: 10-24-2024 End: 10-24-2024 Patient encounter procedure 10/24/2024 3:20 PM EDT Office Visit Family Althea Moyer [address] [place] [address] India Tavares, TUBULAR RIVETER.PLASTER BLOCK LAYER [address] [place] [address] past due 3 month follow up Family Althea [facility] Comment on above: past due 3 month follow up Start: 10-01-2024 End: 10-01-2024 Patient encounter procedure 10/01/2024 1:40 PM EDT Office Visit Family Althea Moyer [address] [facility] [place] [address] India Tavares, TUBULAR RIVETER.PLASTER BLOCK LAYER [address] [place] [address] past due 3 month follow up Family Althea Moyer Comment on above: past due 3 month follow up Start: 09-03-2024 End: 09-03-2024 Patient encounter procedure 09/03/2024 2:40 PM EST Office Visit Family [facility] [address] [facility] [place] [address] India Tavares APRN.PLASTER BLOCK LAYER [address] [facility] [place] [place] [address] past due 3 month follow up Family [facility] Comment on above: past due 3 month follow up Start: 08-30-2024 End: 08-30-2024 ambulatory 08/30/2024 7:45 AM EST Results Only [facility] [address] [place] [address] [facility] Start: 07-10-2024 End: 07-10-2024 Nursing evaluation of patient and report 07/10/2024 3:00 PM EST Nurse Visit Endocrinology [address] [place] [address] Benitez Patricio, RN [address] [address] Controlling my blood sugar and working with meds Endocrinology Comment on above: Controlling my blood sugar and working w [facility] Start: 07-02-2024 End: 07-02-2024 Patient encounter procedure 07/02/2024 7:20 AM EST Office Visit Family [facility] [address] [facility] [place] [address] India Tavares APRN.PLASTER BLOCK LAYER [address] [facility] [place] [place] [address] follow up DM [facility] Comment on above: follow up DM Start: 06-29-2024 End: 06-29-2024 ambulatory 06/29/2024 8:45 AM EST Results Only [facility] [address] [place] [address] [facility] Start: 06-27-2024 End: 09-26-2024 CBC W Auto Differential panel - Blood COMPLETE BLOOD COUNT AND DIFFERENTIAL Lab Routine Type 2 diabetes mellitus with hyperglycemia, unspecified whether care home insulin use (HCC) Expected: 06/27/2024, Expires: 09/26/2024 [facility] Comment on above: Expected: 06/27/2024, Expires: Start: 06-27-2024 End: 09-26-2024 Comprehensive metabolic 2000 panel - Serum or Plasma COMPREHENSIVE METABOLIC PANEL Lab Routine Type 2 diabetes mellitus with hyperglycemia, unspecified whether parts counterman insulin use (HCC) Expected: 06/27/2024, Expires: 09/26/2024 [facility] Comment on above: Expected: 06/27/2024, Expires: Start: 06-27-2024 End: 09-26-2024 Hemoglobin A1c in Blood HEMOGLOBIN A1C Lab Routine Type 2 diabetes mellitus with hyperglycemia, unspecified whether parts counterman insulin use (HCC) Expected: 06/27/2024, Expires: 09/26/2024 [facility] Comment on above: Expected: 06/27/2024, Expires: Start: 06-27-2024 End: 09-26-2024 LIPID PANEL, NONFASTING LIPID PANEL, NONFASTING Lab Routine Type 2 diabetes mellitus with hyperglycemia, unspecified whether parts counterman insulin use (HCC) Expected: 06/27/2024, Expires: 09/26/2024 [facility] Comment on above: Expected: 06/27/2024, Expires: Start: 06-27-2024 End: 09-26-2024 Microalbumin/Creatinine [Mass Ratio] in Urine ALBUMIN/CREATININE RATIO, URINE Lab Routine Type 2 diabetes mellitus with hyperglycemia, unspecified whether care home insulin use (HCC) Expected: 06/27/2024, Expires: 09/26/2024 [facility] Work Phone: Comment on above: Expected: 06/27/2024, Expires: Start: 06-23-2024 Hemoglobin A1c measurement HbA1C [facility] Start: 06-05-2024 End: 06-05-2024 Patient encounter procedure 06/05/2024 8:40 AM EST Office Visit [facility] [address] [place] [address] India Tavares APRN.PLASTER BLOCK LAYER [address] [facility] [address] follow up DM [facility] Comment on above: follow up DM Start: 05-07-2024 End: 05-07-2024 Patient encounter procedure [facility] [place] Comment on above: General appointment - changes in skin te xture and brown spots on head 3 month follow up Start: 04-12-2024 Annual PCP Team Chronic Disease Visit Annual PCP Team Chronic Disease Visit [facility] Start: 03-25-2024 Covid-19 Vaccine () Covid-19 Vaccine () [facility] Start: 03-25-2024 Influenza vaccination [facility] Start: 03-15-2024 End: 03-15-2024 Patient encounter procedure 03/15/2024 2:20 PM EDT Office Visit Family Althea Moyer [address] [place] [address] Juan R Osullivan MD [address] [place] [address] 3 month follow up Family Althea [facility]oyer Comment on above: 3 month follow up Start: 03-07-2024 End: 03-07-2024 ambulatory 03/07/2024 8:45 AM EDT Results Only [facility] [address] [place] [address] labs [facility] Comment on above: labs Start: 03-06-2024 End: 06-05-2024 CBC W Auto Differential panel - Blood COMPLETE BLOOD COUNT AND DIFFERENTIAL Lab Routine Type 2 diabetes mellitus with hyperglycemia, unspecified whether parts counterman insulin use (HCC) Expected: 03/06/2024, Expires: 06/05/2024 [facility] Work Phone: Comment on above: Expected: 03/06/2024, Expires: Start: 03-06-2024 End: 06-05-2024 Comprehensive metabolic 2000 panel - Serum or Plasma COMPREHENSIVE METABOLIC PANEL Lab Routine Type 2 diabetes mellitus with hyperglycemia, unspecified whether parts counterman insulin use (HCC) Expected: 03/06/2024, Expires: 06/05/2024 [facility] Comment on above: Expected: 03/06/2024, Expires: Start: 03-06-2024 End: 06-05-2024 Hemoglobin A1c in Blood HEMOGLOBIN A1C Lab Routine Type 2 diabetes mellitus with hyperglycemia, unspecified whether care home insulin use (HCC) Expected: 03/06/2024, Expires: 06/05/2024 [facility] Comment on above: Expected: 03/06/2024, Expires: Start: 03-06-2024 End: 06-05-2024 LIPID PANEL, NONFASTING LIPID PANEL, NONFASTING Lab Routine Type 2 diabetes mellitus with hyperglycemia, unspecified whether parts counterman insulin use (HCC) Expected: 03/06/2024, Expires: 06/05/2024 [facility] Comment on above: Expected: 03/06/2024, Expires: Start: 03-06-2024 End: 06-05-2024 Microalbumin/Creatinine [Mass Ratio] in Urine ALBUMIN/CREATININE RATIO, URINE Lab Routine Type 2 diabetes mellitus with hyperglycemia, unspecified whether parts counterman insulin use (HCC) Expected: 03/06/2024, Expires: 06/05/2024 [facility] Comment on above: Expected: 03/06/2024, Expires: Start: 03-06-2024 End: 03-06-2024 Patient encounter procedure 03/06/2024 10:40 AM EDT Office Visit [facility] [place] [address] [place] [id number] Kenia Manrique MD [address] [place] [address] General appointment - changes in skin texture and brown spots on head [facility] [place] Comment on above: General appointment - changes in skin te xture and brown spots on head Start: 02-02-2024 End: 02-02-2024 Patient encounter procedure 02/02/2024 3:00 PM EDT Office Visit [facility] [address] [place] [address] Charisse Nguyen, [facility] [address], [place] [id number] Type 2 diabetes mellitus with hyperglycemia, unspecified whether care home insulin use (HCC) [E11.65] [facility] Comment on above: Type 2 diabetes mellitus with hyperglyce olman, unspecified whether parts counterman insulin use (HCC) [E11.65] Start: 2024 RSV Vaccine (1 - 1-dose 60+ series) RSV Vaccine (1 - 1-dose 60+ series) [facility] Start: 2024 RSV Vaccine (1 - Risk 60-74 years 1-dose series) RSV Vaccine (1 - Risk 60-74 years 1-dose series) [facility] Start: 12-05-2023 End: 03-05-2024 CBC panel - Blood by Automated count COMPLETE BLOOD COUNT Lab Routine Essential hypertension Expected: 12/05/2023, Expires: 03/05/2024 [facility] Comment on above: Expected: 12/05/2023, Expires: Start: 12-05-2023 End: 03-05-2024 Cholesterol in LDL [Mass/volume] in Serum or Plasma LDL CHOLESTEROL DIR Lab Routine Elevated triglycerides with high cholesterol Expected: 12/05/2023, Expires: 03/05/2024 [facility] Comment on above: Expected: 12/05/2023, Expires: Start: 12-05-2023 End: 03-05-2024 Comprehensive metabolic 2000 panel - Serum or Plasma COMPREHENSIVE METABOLIC PANEL Lab Routine Essential hypertension Expected: 12/05/2023, Expires: 03/05/2024 [facility] Comment on above: Expected: 12/05/2023, Expires: Start: 12-05-2023 End: 03-05-2024 Hemoglobin A1c in Blood HEMOGLOBIN A1C Lab Routine Type 2 diabetes mellitus without complication, without long-term current use of insulin (HCC) Expected: 12/05/2023, Expires: 03/05/2024 [facility] Work Phone: Comment on above: Expected: 12/05/2023, Expires: Start: 12-05-2023 End: 03-05-2024 Lipid 1996 panel - Serum or Plasma LIPID PANEL BASIC Lab Routine Elevated triglycerides with high cholesterol Expected: 12/05/2023, Expires: 03/05/2024 [facility] Comment on above: Expected: 12/05/2023, Expires: 4 Start: 12-05-2023 End: 03-05-2024 Microalbumin/Creatinine [Mass Ratio] in Urine ALBUMIN/CREATININE RATIO, URINE Lab Routine Type 2 diabetes mellitus without complication, without long-term current use of insulin (HCC) Expected: 12/05/2023, Expires: 03/05/2024 [facility] Comment on above: Expected: 12/05/2023, Expires: 4 Start: 05-27-2023 ANNUAL PCP TEAM CHRONIC DISEASE VISIT ANNUAL PCP TEAM CHRONIC DISEASE VISIT [facility] Start: 05-27-2023 COVID-19 VACCINE (#1) COVID-19 VACCINE (#1) [facility] Comment on above: Postponed from 1964 (Declined at t his time) Start: 05-27-2023 Hepatitis B surface antibody level LDL CHOLESTEROL [facility] Start: 05-27-2023 SHINGRIX VACCINE (1 of 2) SHINGRIX VACCINE (1 of 2) [facility] Comment on above: Postponed from 01/20/2014 (Declined at t his time) Start: 03-25-2023 Covid-19 Vaccine ( season) Covid-19 Vaccine ( season) [facility] Start: 03-25-2023 Influenza [facility] Start: 11-24-2022 Hemoglobin A1c measurement HbA1C [facility] Start: 11-24-2022 Hemoglobin A1c/Hemoglobin.total in Blood HBA1C [facility] Start: 11-04-2022 3 comp foot exam completed DIABETIC FOOT EXAM [facility] Start: 11-04-2022 ANNUAL PCP TEAM CHRONIC DISEASE VISIT ANNUAL PCP TEAM CHRONIC DISEASE VISIT [facility] Start: 11-04-2022 Hepatitis B screening URINE ALBUMIN:CREATININE RATIO [facility] Start: 07-25-2022 DEPRESSION ASSESSMENT DEPRESSION ASSESSMENT [facility] Start: 07-21-2022 ONE PNEUMOVAX PRIOR TO AGE 65 ONE PNEUMOVAX PRIOR TO AGE 64 [facility] Comment on above: Postponed from 1980 (Declined at t his time) Start: 07-21-2022 PNEUMOCOCCAL (1 - PCV) PNEUMOCOCCAL (1 - PCV) [facility] Comment on above: Postponed from 01/20/1970 (Declined at t his time) Start: 05-27-2022 End: 07-27-2022 Comprehensive metabolic 2000 panel - Serum or Plasma [facility] Work Phone: Comment on above: Expected: 05/27/2022, Expires: 3 Start: 05-27-2022 End: 07-27-2022 Hemoglobin A1c in Blood [facility] Work Phone: Comment on above: Expected: 05/27/2022, Expires: 3 Start: 05-27-2022 End: 07-27-2022 HIV 1+2 Ab [Presence] in Serum or Plasma by Immunoassay [facility] Work Phone: Comment on above: Expected: 05/27/2022, Expires: 3 Start: 05-27-2022 End: 07-27-2022 LIPID PANEL, NONFASTING [facility] Work Phone: Comment on above: Expected: 05/27/2022, Expires: 3 Start: 05-06-2022 Hemoglobin A1c/Hemoglobin.total in Blood HBA1C [facility] Start: 05-05-2022 PROSTATE CANCER SCREENING DISCUSSION PROSTATE CANCER SCREENING DISCUSSION [facility] Start: 03-25-2022 Influenza vaccination INFLUENZA (Season Ended) [facility] Start: 03-06-2022 Adult depression screening assessment DEPRESSION SCREENING [facility] Start: 03-06-2022 Hepatitis B surface antibody level LDL CHOLESTEROL [facility] Start: 03-06-2022 HIV SCREENING HIV SCREENING [facility] Comment on above: Postponed from 01/20/1982 (Declined at t his time) Start: 11-04-2021 End: 01-04-2022 ALBUMIN/CREAT RATIO RND UR [facility] Work Phone: Comment on above: Expected: 11/04/2021, Expires: 2 Start: 11-04-2021 End: 01-04-2022 Comprehensive metabolic 2000 panel - Serum or Plasma [facility] Work Phone: Comment on above: Expected: 11/04/2021, Expires: 2 Start: 11-04-2021 End: 01-04-2022 Hemoglobin A1c/Hemoglobin.total in Blood [facility] Work Phone: Comment on above: Expected: 11/04/2021, Expires: 2 Start: 09-06-2021 Hemoglobin A1c/Hemoglobin.total in Blood HBA1C [facility] Start: 01-20-2014 SHINGRIX VACCINE (1 of 2) SHINGRIX VACCINE (1 of 2) [facility] Start: 01-20-2009 COLOGUARD (FIT-DNA) COLOGUARD (FIT-DNA) [facility] Start: 01-20-[address] COLONOGRAPHY [facility] Start: 01-20-2009 FECAL OCCULT BLOOD FECAL OCCULT BLOOD [facility] Start: 01-20-2009 Screening for malignant neoplasm of colon [facility] Start: 01-20-2009 SIGMOIDOSCOPY SIGMOIDOSCOPY [facility] Start: 01-20-1983 Pneumococcal Vaccine: 50+ (1 of 2 - PCV) Pneumococcal Vaccine: 50+ (1 of 2 - PCV) [facility] Start: 01-20-1982 BP CONTROLLED (<130/80) BP CONTROLLED (<130/80) [facility] Start: 01-20-1982 HIV SCREENING HIV SCREENING [facility] Start: 01-20-1974 Glaucoma screening Dilated Retinal Exam [facility] Start: 01-20-1974 Hepatitis B screening URINE ALBUMIN:CREATININE RATIO [facility] Start: 01-20-1974 Hepatitis C antibody, confirmatory test DILATED RETINAL EXAM [facility] Start: 01-20-1970 PNEUMOCOCCAL (1 - PCV) PNEUMOCOCCAL (1 - PCV) [facility] Start: 01-20-1970 Pneumococcal vaccination [facility] Start: 01-20-1969 COVID-19 VACCINE (1) COVID-19 VACCINE (1) [facility] Immunizations Immunization Date Immunization Notes Care Provider Janell blanchard 05-27-2022 influenza, injectabl e, quadrivalent, contains preservative Juan R Osullivan MD Work Phone: [facility] 05-27-2022 influenza virus vaccine, unspecified formulation [employer] TUB[employer] RIVETER.[employer] Work Phone: [facility] 05-14-2018 influenza, injectabl e, quadrivalent, preservative free Juan R Osullivan MD Work Phone: [facility] Work Phone: 05-05-2017 influenza, injectabl e, quadrivalent, contains preservative [employer] TUBULAR RIVETER.PLASTER BLOCK LAYER Work Phone: [facility] 05-05-2017 tetanus toxoid, reduced diphtheria toxoid, and acellular pertussis vaccine, adsorbed [employer] TUBULAR RIVETER.PLASTER BLOCK LAYER Work Phone: [facility] Payers Date Payer Category Payer Self-pay 2024 Self-pay 2022 Private Health Insurance [id number] 2021 Private Health Insurance [id number] 2021 Unknown [employer] PPO [id number] 2021-Present [phone] [address] [place] [address] PPO [id number] 2020 Unknown EYE CARE PLAN OF [employer]ISION [id number] 07/25/2020-Present [address] [place] [address] Indemnity [id number] 1965 Unknown [id number] Unknown [id number] Unknown [id number] Social History Date Type Detail Facility Start: 05-27-2022 Tobacco smoking status NHIS Never smoked tobacco [facility] Start: 11-04-2021 End: 03-15-2025 Alcohol intake Current drinker of alcohol (finding) [facility] Start: 07-20-2021 History SDOH Alcohol Frequency 4 [facility] Start: 07-20-2021 End: 05-26-2022 History SDOH Alcohol Std Drinks 1 [facility] Start: 05-05-2017 History SDOH Alcohol Comment Occasionally once per month [facility] Start: 07-20-2021 History SDOH Social Connections Phone 5 [facility] Start: 07-20-2021 History SDOH Social Connections Get Together 3 [facility] Start: 07-20-2021 End: 05-26-2022 History SDOH Stress 2 [facility] Start: 1965 Sex Assigned At Male [facility] Start: 10-16-2021 End: 05-27-2022 Exposure to SARS-CoV-2 (event) Not sure [facility] Work Phone: Start: 05-27-2022 Tobacco use and exposure Smokeless tobacco non-user [facility] Start: 05-27-2022 Alcohol Comment Occasionally twice per month [facility] Start: 12-05-2022 End: 01-07-2023 History of Social function [facility] Start: 12-05-2022 End: 01-07-2023 Social connection and isolation panel [facility] Start: 06-25-2012 Active Member of Clubs or Organizations Not on file [facility] Are you now , , , , never or living with a partner? [facility] How often to you hav e a drink containing alcohol? 2-4 times a month [facility] How many standard dr inks containing alcohol do you have on a typical day? 3 or 4 [facility] How often do you hav e 6 or more drinks on 1 occasion? Never [facility] Do you feel stress - tense, restless, nervous, or anxious, or unable to sleep at night because your mind is troubled all the time - these days [OSQ] To some extent [facility] (I/We) worried wheth er (my/our) food would run out before (I/we) got money to buy more. Never true [facility] In the past 12 month s, was there a time when you were not able to pay the mortgage or rent on time? No [facility] Start: 03-05-2021 Gender identity Identifies as male gender (finding) [facility] Start: 03-05-2021 Sexual orientation Heterosexual (finding) [facility] Medical Equipment Procedure Code Equipment Code Equipment Origin al Text Equipment Identifier Dates [id number] Start: 12-23-2023 Test blood sugar (s) 3 times daily. Dx: Type 2 DM - Uncontrolled E11.65 Insulin: Yes [id number] Start: 12-23-2023 Use one needle p er dose. once per day. [id number] Start: 01-27-2024 End: 09-19-2024 Use one needle p er dose. once per day. [id number] Start: 09-20-2024 Clinical Notes 11-04-2021 to 03-15-2025 Ingrid Saravia APRN.PLASTER BLOCK LAYER - 03/15/2025 3:11 PM EDTPatient InstructionsRob Mckeon RT(R) - 03/15/2025 2:50 PM EDTCDaniele palencia RN - 10/18/2024 5:31 PM EDTPatient Instructions Note Date & Type Note Facility 03-15-2025 History of Present illness Narrative URGENT CARE [facility] Phi Gonzalez is a 60 [...] Morbid obesity with BMI of 40.0-44.9, adult ([facility]) SILVANO (obstructive sleep apnea) severe Seasonal allergies Snoring Type 2 diabetes mellitus without complication, without long-term current use of insulin ([facility]) 03/09/2021 PAST SURGICAL HISTORY Procedure Laterality Date [...] 2 diabetes mellitus without complication, unspecified whether parts counterman insulin use (HCC) (E11.9) and Recording using G2Link software for draft documentation of the visit was discussed with the patient/authorized employment program representative; all questions welcomed and answered. Patient/authorized employment program representative agreed to proceed MDM Procedures [1] Social History Tobacco Use Smoking status: Never Smokeless tobacco: Never Substance Use Topics Alcohol use: Yes Comment: Occasionally twice per month Drug use: No documented in this encounter [facility] 03-15-2025 Instructions Ingrid Saravia APRN.CNP - [...] more? National Digestive Diseases Information Clearinghouse2 Information [place], [place] [address] www.digestive.niddk.nih.gov email: References: National Digestive Diseases Information Clearinghouse. Constipation. digestive.niddk.nih.gov Accessed April 28, 2012. [place] [employer]. Understanding Constipation. www.gastro.org. Accessed April 28, 2012. Copyright 3012-3587 [facility]. All rights reserved This information is provided by the [facility] and is not intended to replace the medical advice of your doctor or health care provider. Please consult your health care provider for advice about a specific medical condition. For additional health information, please contact the Center for Consumer Health Information at the [facility] or toll-free extension [phone]. If you prefer, you may visit [email or web address]/ or [email or web address]. This document was last reviewed on: 2012 index #[id number] documented in this encounter [facility] 03-15-2025 History of Present illness Narrative [...] PATIENT PRESENTS WITH AN IMPLANTABLE OR ATTACHED BEFORE AND AFTER SCHOOL DAYCARE WORKER: No RADIOLOGY DEPARTMENT: General X-ray: Exam(s) Completed: Abdomen X-Ray: Abdomen with Upright PERIPHERAL IV DATA: Not applicable SIGNED BY: RT Aaron(R) March 15, 2025 2:29 PM documented in this encounter [facility] 10-18-2024 Note HNO ID: [id number] Author: DANIELE MCKEON RN Service: ? Author Type: Registered Nurse Type: Progress Notes Filed: 10/18/2024 18:00 Note Text: DIABETES SELF-MANAGEMENT EDUCATION AND SUPPORT Location: [facility] Type of visit: Virtual (with video) individual I have communicated my name and active licensure. The patient's identity and physical location were verified at the time of this visit. 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 [facility] 10-18-2024 History of Present illness Narrative DIABETES SELF-MANAGEMENT EDUCATION AND SUPPORT Location: [facility] Type of visit: Virtual (with video) individual I have communicated my name and active licensure. The patient's identity and physical location were verified at the time of this visit. 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 Needs to schedule in next 30 days. [facility] 09-20-2024 Miscellaneous Notes Overdue for OV. [...] 2024 4:58 PM documented in this encounter [facility] 09-19-2024 Telephone encounter Note The patient [...] Lynch RN September 19, 2024 4:58 PM [facility] 08-29-2024 Telephone encounter Note Phoned patient and updated him with provider's message. Patient voiced understanding. Jessica Wynn LPN [facility] 08-29-2024 Miscellaneous Notes Phoned patient and [...] PHARMACY: [facility]. documented in this encounter [facility] 08-29-2024 Telephone encounter Note I will send in another 30 day refill, but needs OV in the next 1 month for DM follow up. [facility] 08-29-2024 Telephone encounter Note Per EPIC, Jardiance last prescribed 05/29/24, #30. Phone call to patient to see if he has been taking the jardiance. Pt states that he finished that prescription in June, so he has gone without all of July. Pt KILEY with [place] 12/04/24 and was asked to follow up in 3 months. Masha Aguayo MA [facility] 08-29-2024 Telephone encounter Note Patient is asking for a refill that is empagliflozin (JARDIANCE) 10 mg tablet ( Patient last seen 12/05/23 Future visit scheduled: no PHARMACY: [facility]. [facility] 06-27-2024 Telephone encounter Note MyChart msg sent to pt as requested. [facility] 06-27-2024 Miscellaneous Notes MyChart msg sent to pt as requested. Labs ordered to be completed 1-2 days prior to OV. Derik is calling Juan R Osullivan MD today to request an order for labs for his upcoming appointment. Please send a message in Biglion when labs are ordered. TY Patient has been identified by name and birthdate. Duration of symptoms: N/A Person calling: self Call patient at: at home [phone] (home) [phone] (cell) Was an appointment scheduled: No Closing statement: Results or non-symptom based questions: Thank you for calling [facility], your call will be returned within the next business day. India Miller documented in this encounter [facility] 06-27-2024 Telephone encounter Note Labs ordered to be completed 1-2 days prior to OV. [facility] 06-27-2024 Telephone encounter Note Derik is calling Juan R Osullivan MD today to request an order for labs for his upcoming appointment. Please send a message in Biglion when labs are ordered. TY Patient has been identified by name and birthdate. Duration of symptoms: N/A Person calling: self Call patient at: at home [phone] (home) [phone] (cell) Was an appointment scheduled: No Closing statement: Results or non-symptom based questions: Thank you for calling [facility], your call will be returned within the next business day. India Miller [facility] 05-29-2024 Telephone encounter Note Spoke with pt and apt booked and pt will get blood work done prior to apt. Sandhya Jackson LPN [facility] 05-29-2024 Miscellaneous Notes Spoke with pt [...] 2024 3:12 PM documented in this encounter [facility] 05-29-2024 Telephone encounter Note Please let patient know he is overdue for follow up and needs schedule. [facility] 05-28-2024 Telephone encounter Note Prescription Refill [...] Klarissa Luna May 28, 2024 3:12 PM [facility] Work Phone: 05-07-2024 Telephone encounter Note [...] Martita Luna May 07, 2024 1:31 PM [facility] 05-07-2024 Miscellaneous Notes Prescription Refill Information [...] 2024 1:31 PM documented in this encounter [facility] 04-17-2024 Telephone encounter Note Prescription Refill [...] Clarisse Quintero April 17, 2024 3:47 PM [facility] 04-17-2024 Miscellaneous Notes Prescription Refill Information [...] 2024 3:47 PM documented in this encounter [facility] 03-12-2024 Telephone encounter Note Phoned patient and advised him PCP placed orders last week and recommend at least 2 days prior to appt to complete labs. Patient reports he will try to come tomorrow to complete. Jessica Wynn LPN [facility] 03-12-2024 Miscellaneous Notes Phoned patient and [...] with Dr. Osullivan. Please call him at [phone] when placed. documented in this encounter [facility] 03-09-2024 Telephone encounter Note Mychart message sent to pt notifying him we tried to contact him with message left for a call back. Notified pt that fasting labs and a urine have been ordered to complete this week for his upcoming appt next week. Will keep encounter open to make sure pt has read his message. Yudi Pimentel MA [facility] 03-06-2024 Telephone encounter Note Phoned patient left message to return call and ask to speak to a nurse. [facility] 03-06-2024 Telephone encounter Note Labs ordered. Come in this week to have them done so we can review at his appointment. [facility] 03-06-2024 Telephone encounter Note Patient called to request lab orders for his upcoming follow up appt with Dr. Osullivan. Please call him at [phone] when placed. [facility] 02-02-2024 Telephone encounter Note Telephoned the patient regarding missed appt. Left a message. First attempt. [facility] 02-02-2024 Miscellaneous Notes Telephoned the patient regarding missed appt. Left a message. First attempt. Primary Care Pharmacy Rescheduling Outreach Call center, please contact patient and reschedule in person, telephone, and virtual visit for Diabetes management within ~4 week(s). (Visit length: 60 minutes - NEW) Thank you, Charisse Nguyen PharmD, BCACP [facility] Clinical Grievance And Appeals Specialist 02/02/2024 3:57 PM documented in this encounter [facility] 02-02-2024 Telephone encounter Note Primary Care Pharmacy Rescheduling Outreach Call center, please contact patient and reschedule in person, telephone, and virtual visit for Diabetes management within ~4 week(s). (Visit length: 60 minutes - NEW) Thank you, Charisse Nguyen PharmD, BCACP Primary Care Clinical Grievance And Appeals Specialist 02/02/2024 3:57 PM [facility] Work Phone: 01-27-2024 Telephone encounter Note Patient updated and voiced understanding. Jessica Wynn LPN [facility] 01-27-2024 Miscellaneous Notes Patient updated and [...] calling: self Call patient at: at home [phone] (home) [phone] (cell) Was an appointment scheduled: No Closing statement: Results or non-symptom based questions: Thank you for calling [facility], your call will be returned within the next business day. Masha Luna documented in this encounter [facility] 01-27-2024 Telephone encounter Note Prescription sent. India Tavares APRN.CNP [facility] 01-27-2024 Telephone encounter Note Derik is calling India Tavares APRN.CNP today to request Medication Problem (Patient states that the insulin pen needles were not sent to the pharmacy. Please send script over to his pharmacy ) Patient has been identified by name and birthdate. Duration of symptoms: N/A Person calling: self Call patient at: at home [phone] (home) [phone] (cell) Was an appointment scheduled: No Closing statement: Results or non-symptom based questions: Thank you for calling [facility], your call will be returned within the next business day. Masha Luna [facility] Work Phone: 12-26-2023 Telephone encounter Note Called and spoke to patient to schedule Primary Care Pharmacy consult on 02/02/2024 (soonest available at [facility]). [facility] 12-26-2023 Miscellaneous Notes Called and spoke to patient to schedule Primary Care Pharmacy consult on 02/02/2024 (soonest available at [facility]). documented in this encounter [facility] 12-13-2023 Telephone encounter Note Order, demographics and office note faxed to [facility] at [phone]. Patient telephoned and notified. Will follow up with [employer]. Patient will call office back if has any further issues. Trevor Hill LPN [facility] 12-13-2023 Miscellaneous Notes Order, demographics and office note faxed to [facility] at [phone]. Patient telephoned and notified. Will follow up [...] calling: self Call patient at: on cell [phone] (home) [phone] (cell) Was an appointment scheduled: No Closing statement: Results or non-symptom based questions: Thank you for calling [facility], your call will be returned within the next business day. Carole Greer documented in this encounter [facility] 12-13-2023 Telephone encounter Note Derik is [...] calling: self Call patient at: on cell [phone] (home) [phone] (cell) Was an appointment scheduled: No Closing statement: Results or non-symptom based questions: Thank you for calling [facility], your call will be returned within the next business day. Carole Greer [facility] 12-05-2023 Instructions PodIndia breen APRN.HONORIO - 12/05/2023 3:15 PM EDT Images from the original note were not included. To schedule a diabetic eye exam at the [facility] [place], please call: [phone] Online resources to learn more [email or web address] lt/diseases/[email or web address]-yykygjyb-nvnjcbn athy https://www.diabetes.org/diabetes/ complications/eye-complications https://www.aoa.org/healthy-eyes/e te-ddd-swbvrs-conditions/diabetic- retinopathy?sso=y https://www.[employer].com.Oonair References 1. National Diabetes Statistics Report 2020: Estimates of Diabetes and Its [place] in the [facility]. Center for Disease Control and Prevention; 2020. Available at: https://www.cdc.gov/diabetes/pdfs/ data/statistics/national-diabetes- statistics-report.pdf 2. Estefania Rios, Razia Bush, Bala Montenegro, Kasie Hermosillo, Klarissa Farrell, Red Lewis, Walt Siegel, Madi Genao; Diabetic Retinopathy: A Position Statement by the [place] [employer]. Diabetes Care 22 September 2016; 40 (3): 412-418 documented in this encounter [facility] 12-05-2023 Note HNO ID: [id number] Author: INDIA TAVARES APRN.PLASTER BLOCK LAYER Service: ? Author Type: Nurse Practitioner Type: [...] complication, without long-term current use of insulin ([facility]) 03/09/2021 ALLERGIES Losartan and Seasonal Allergies MEDICATIONS [...] on 05/27/2027 Col (more content not included)... [facility] 12-05-2023 History of Present illness Narrative 12/05/2023 [...] Morbid obesity with BMI of 40.0-44.9, adult ([facility]) SILVANO (obstructive sleep apnea) severe Seasonal allergies Snoring Type 2 diabetes mellitus without complication, without long-term current use of insulin ([facility]) 03/09/2021 ALLERGIES Losartan and Seasonal Allergies MEDICATIONS [...] to try nasal pillow- order faxed to [facility] - discussed risks of untreated sleep apnea- verbalizes understanding - CPAP DEVICE, WITH HUMIDIFIER 7. Depression screening - ICD9: V79.0, ICD10: Z13.31 - BEHAVIORAL HEALTH SCREENING India Tavares APRN.PLASTER BLOCK LAYER Prescription instructions reviewed with patient as applicable. Patient advised if symptoms do not improve or if symptoms worsen sooner, to contact their primary care physician. Potential red flag symptoms discussed with the patient. Reviewed appropriate action plan to take if red flag symptoms occur. Patient agreeable to treatment plan. documented in this encounter [facility] 04-12-2023 History of Present illness Narrative 04/12/2023 Patient presents with: Rash I have communicated my name and active licensure. The patient's identity and physical location were verified at the time of this visit. Either the patient or their legal employment program representative has been informed of the risks [...] Morbid obesity with BMI of 40.0-44.9, adult ([facility]) SILVANO (obstructive sleep apnea) severe Seasonal allergies Snoring Type 2 diabetes mellitus without complication, without long-term current use of insulin ([facility]) 03/09/2021 ALLERGIES Losartan and Seasonal Allergies MEDICATIONS [...] which included preparing to see the patient, [id number] patient care, completing clinical documentation, obtaining and/or reviewing separately obtained history, performing a medically appropriate examination, counseling and educating the patient/family/caregiver, and ordering medications, tests, or procedures. documented in this encounter [facility] 06-22-2022 Miscellaneous Notes Rx for Cialis 10 mg sent to pharmacy. Contact our office if symptoms not improved on this dosage. Patient contacted and states he would like to try the Cialis due to wanting something stronger than Viagra 100 mg. Uses [facility] in [place]. Thank you. He is on 100 mg [...] patient. Thank you. documented in this encounter [facility] 05-27-2022 History of Present illness Narrative [...] past [address] Brandt in [place]. Reports this was normal/negative. Last Podiatry exam [...] Morbid obesity with BMI of 40.0-44.9, adult ([facility]) SILVANO (obstructive sleep apnea) severe Prediabetes Seasonal allergies Snoring Type 2 diabetes mellitus without complication, without long-term current use of insulin ([facility]) 03/09/2021 Previous Surgical History PAST SURGICAL HISTORY [...] (FLONASE) 50 mcg/actuation nasal spray Use 1 Pomeroy in each nostril once daily. (Patient not [...] arise. - Discussed diabetic education issues of parts counterman diabetic complications, hypoglycemic symptoms, hyperglycemic symptoms, diet, [...] R Osullivan MD documented in this encounter [facility] 11-06-2021 Miscellaneous Notes Patient notified and voiced his understanding. Patient telephoned. Message left to call back for update. Trevor Hill LPN Please call patient and let him know A1c hs improved- continue current medication, diet and exercise. The rest of his blood work and his urine is normal. India Tavares APRN.HONORIO documented in this encounter [facility] 11-04-2021 History of Present illness Narrative [...] Morbid obesity with BMI of 40.0-44.9, adult ([facility]) SILVANO (obstructive sleep apnea) severe Prediabetes Seasonal allergies Snoring Type 2 diabetes mellitus without complication, without long-term current use of insulin ([facility]) 03/09/2021 ALLERGIES Seasonal Allergies MEDICATIONS Current Outpatient [...] (FLONASE) 50 mcg/actuation nasal spray Use 1 Pomeroy in each nostril once daily. (Patient not [...] to treatment plan. documented in this encounter [facility] Evaluation note Diagnosis Type 2 diabetes mellitus without complication, without long-term current use of insulin (HCC)- Primary Hypertension, essential Unspecified essential hypertension SILVANO (obstructive sleep apnea) Obstructive sleep apnea (adult) (pediatric) [facility] Diagnosis Annual physical exam- Primary [...] neoplasm of prostate documented in this encounter [facility] note* Diagnosis Skin tag Unspecified hypertrophic and atrophic condition of skin documented in this encounter [facility] note* Diagnosis Irritant contact dermatitis, unspecified trigger- Primary documented in this encounter [facility] note* Diagnosis Annual physical exam- Primary Routine general medical examination at a health care facility Type 2 diabetes mellitus without complication, without long-term current use of insulin (HCC) Elevated triglycerides with high cholesterol Mixed hyperlipidemia Essential hypertension Unspecified essential hypertension Hyperlipidemia, mixed Mixed hyperlipidemia SILVANO (obstructive sleep apnea) Obstructive sleep apnea (adult) (pediatric) Depression screening Screening for depression documented in this encounter [facility] note* Diagnosis Type 2 diabetes mellitus with hyperglycemia, unspecified whether care home insulin use (HCC)- Primary documented in this encounter [facility] note* Diagnosis Type 2 diabetes mellitus with hyperglycemia, unspecified whether care home insulin use (HCC)- Primary documented in this encounter [facility] note* Diagnosis Type 2 diabetes mellitus with hyperglycemia, unspecified whether parts counterman insulin use (HCC)- Primary documented in this encounter [facility] note* Diagnosis Type 2 diabetes mellitus with hyperglycemia, unspecified whether parts counterman insulin use (HCC) documented in this encounter [facility] note* Diagnosis Acute constipation- Primary Unspecified constipation Essential (primary) hypertension Unspecified essential hypertension Gastro-esophageal reflux disease without esophagitis Esophageal reflux Type 2 diabetes mellitus without complication, unspecified whether parts counterman insulin use (HCC) Acute constipation Unspecified constipation documented in this encounter [facility] note* Diagnosis Acute constipation Unspecified constipation documented in this encounter [facility] for visit Narrative* Diagnostic Procedure Only (Urgent) - Closed Specialty Diagnoses / Procedures Referred By Contac t Referred To Contact XR IMAGING Diagnoses Acute constipation Procedures XR ABDOMEN 2V ROUTINE SUPINE W UPRIGHT/DECUB/CTL RADIOLOGIC EXAM ABDOMEN 2 VIEWS Ingrid Saravia APRN.PLASTER BLOCK LAYER [address] [facility] [place] [address] Phone: tel: fax: [place] [address] Referral ID Status Reason Start Date Expiration Date V isits Requested Visits Authorized [id number] Closed Auto-Generate d Referral 03/15/2025 04/14/2026 1 1 [facility] Advance Directives Documents on File Type Date Recorded 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 Advance Directive(s) 11/10/2017 6:35 AM [...] or prosecute any alcohol or drug abuse patient.[facility] the event this information is protected by the Federal Confidentiality of Alcohol and Drug Abuse Patient Records regulations: The Federal rules restrict any use of the information to criminally investigate or prosecute any alcohol or drug abuse patient.[facility] the event this information is protected by the Federal Confidentiality of Alcohol and Drug Abuse Patient Records regulations: The Federal rules restrict any use of the information to criminally investigate or prosecute any alcohol or drug abuse patient.[facility] the event this information is protected by the Federal Confidentiality of Alcohol and Drug Abuse Patient Records regulations: The Federal rules restrict any use of the information to criminally investigate or prosecute any alcohol or drug abuse patient.[facility] the event this information is protected by the Federal Confidentiality of Alcohol and Drug Abuse Patient Records regulations: The Federal rules restrict any use of the information to criminally investigate or prosecute any alcohol or drug abuse patient.[facility] the event this information is protected by the Federal Confidentiality of Alcohol and Drug Abuse Patient Records regulations: The Federal rules restrict any use of the information to criminally investigate or prosecute any alcohol or drug abuse patient.[facility] the event this information is protected by the Federal Confidentiality of Alcohol and Drug Abuse Patient Records regulations: The Federal rules restrict any use of the information to criminally investigate or prosecute any alcohol or drug abuse patient.[facility] Hospital[facility] the event this information is protected by the Federal Confidentiality of Alcohol and Drug Abuse Patient Records regulations: The Federal rules restrict any use of the information to criminally investigate or prosecute any alcohol or drug abuse patient.[facility] HospitalIn the event this information is protected by the Federal Confidentiality of Alcohol and Drug Abuse Patient Records regulations: The Federal rules restrict any use of the information to criminally investigate or prosecute any alcohol or drug abuse patient.[facility] Hospital[facility] the event this information is protected by the Federal Confidentiality of Alcohol and Drug Abuse Patient Records regulations: The Federal rules restrict any use of the information to criminally investigate or prosecute any alcohol or drug abuse patient.[facility] Hospital[facility] the event this information is protected by the Federal Confidentiality of Alcohol and Drug Abuse Patient Records regulations: The Federal rules restrict any use of the information to criminally investigate or prosecute any alcohol or drug abuse patient.[facility] Hospital[facility] the event this information is protected by the Federal Confidentiality of Alcohol and Drug Abuse Patient Records regulations: The Federal rules restrict any use of the information to criminally investigate or prosecute any alcohol or drug abuse patient.[facility] Hospital[facility] the event this information is protected by the Federal Confidentiality of Alcohol and Drug Abuse Patient Records regulations: The Federal rules restrict any use of the information to criminally investigate or prosecute any alcohol or drug abuse patient.[facility] HospitalIn the event this information is protected by the Federal Confidentiality of Alcohol and Drug Abuse Patient Records regulations: The Federal rules restrict any use of the information to criminally investigate or prosecute any alcohol or drug abuse patient.[facility] HospitalIn the event this information is protected by the Federal Confidentiality of Alcohol and Drug Abuse Patient Records regulations: The Federal rules restrict any use of the information to criminally investigate or prosecute any alcohol or drug abuse patient.[facility] HospitalIn the event this information is protected by the Federal Confidentiality of Alcohol and Drug Abuse Patient Records regulations: The Federal rules restrict any use of the information to criminally investigate or prosecute any alcohol or drug abuse patient.[facility] HospitalIn the event this information is protected by the Federal Confidentiality of Alcohol and Drug Abuse Patient Records regulations: The Federal rules restrict any use of the information to criminally investigate or prosecute any alcohol or drug abuse patient.[facility] HospitalIn the event this information is protected by the Federal Confidentiality of Alcohol and Drug Abuse Patient Records regulations: The Federal rules restrict any use of the information to criminally investigate or prosecute any alcohol or drug abuse patient.[facility] HospitalIn the event this information is protected by the Federal Confidentiality of Alcohol and Drug Abuse Patient Records regulations: The Federal rules restrict any use of the information to criminally investigate or prosecute any alcohol or drug abuse patient.[facility] HospitalIn the event this information is protected by the Federal Confidentiality of Alcohol and Drug Abuse Patient Records regulations: The Federal rules restrict any use of the information to criminally investigate or prosecute any alcohol or drug abuse patient.[facility] HospitalIn the event this information is protected by the Federal Confidentiality of Alcohol and Drug Abuse Patient Records regulations: The Federal rules restrict any use of the information to criminally investigate or prosecute any alcohol or drug abuse patient.[facility] HospitalIn the event this information is protected by the Federal Confidentiality of Alcohol and Drug Abuse Patient Records regulations: The Federal rules restrict any use of the information to criminally investigate or prosecute any alcohol or drug abuse patient.[facility] HospitalIn the event this information is protected by the Federal Confidentiality of Alcohol and Drug Abuse Patient Records regulations: The Federal rules restrict any use of the information to criminally investigate or prosecute any alcohol or drug abuse patient.[facility] HospitalIn the event this information is protected by the Federal Confidentiality of Alcohol and Drug Abuse Patient Records regulations: The Federal rules restrict any use of the information to criminally investigate or prosecute any alcohol or drug abuse patient.[facility] Reason for Visit (unrecogniz ed section and content) Reason Comments Diabetes Physical Reason Comments Results Reason Onset Date Comments Physical Immunizations 05/27/2022 Flu vaccination Specialty Diagnoses / Procedures Referred By Contac t Referred To Contact Family Medicine / FAMILY MEDICINE Diagnoses My a1c and general overall health Procedures [facility] Pcp, Juan R Ascencio MD [address] [place] [address] Referral ID Status Reason Start Date Expiration Date V isits Requested Visits Authorized [id number] Pending Review 05/04/2022 08/02/2022 1 1 Reason [...] 2 diabetes mellitus with hyperglycemia, unspecified whether parts counterman insulin use (HCC) Procedures CONSULT TO DIABETES EDUCATION DSME/MNT MEDICAL NUTRITION ASSMT&IVNTJ INDIV EACH 15 WI MEDICAL NUTRITION ASSMT&IVNTJ INDIV EACH 15 WI MEDICAL NUTRITION ASSMT&IVNTJ INDIV EACH 15 WI MEDICAL NUTRITION ASSMT&IVNTJ INDIV EACH 15 [place] PodIndia breen APRN.PLASTER BLOCK LAYER [address] [place] [address] Phone: tel: fax: Endocrinology [address] [place] [address] Phone: tel: Referral ID Status Reason Start Date Expiration Date V isits Requested Visits Authorized [id number] Closed PCP Requested Referral 12/23/2023 12/22/2024 1 1 Reason Comments Constipation X9 days, used mag ci trate w/o relief Care Teams (unrecognized sec tion and content) Fur Drummer Relationship Specialty Start Date End Date Juan R Osullivan MD [address] [place], [place] [id number] PCP - General Family Practice 05/05/17 Fur Drummer Relationship Specialty Start Date End Date Juan R Osullivan MD [address] [place], [place] [id number] PCP - General Family Practice 05/05/17 Fur Drummer Relationship Specialty Start Date End Date Juan R Osullivan MD [address] [place], [place] [id number] PCP - General Family Medicine 05/05/17 Fur Drummer Relationship Specialty Start Date End Date Juan R Osullivan MD [address] [place] [address] PCP - General Family Medicine 05/05/17 Fur Drummer Relationship Specialty Start Date End Date Juan R Osullivan MD [address] [place] [address] PCP - General Family Medicine 05/05/17 Fur Drummer Relationship Specialty Start Date End Date Juan R Osullivan MD [address] [place] [address] PCP - General Family Medicine 05/05/17 Fur Drummer Relationship Specialty Start Date End Date Juan R Osullivan MD [address] [place] [address] PCP - General Family Medicine 05/05/17 Fur Drummer Relationship Specialty Start Date End Date Juan R Osullivan MD [address] [place] [address] PCP - General Family Medicine 05/05/17 Fur Drummer Relationship Specialty Start Date End Date JuanR Osullivan MD [address] [place] [address] PCP - General Family Medicine 05/05/17 Fur Drummer Relationship Specialty Start Date End Date Juan R Osullivan MD [address] [place] [address] PCP - General Family Medicine 05/05/17 Fur Drummer Relationship Specialty Start Date End Date Juan R Osullivan MD [address] [place] [address] PCP - General Family Medicine 05/05/17 Fur Drummer Relationship Specialty Start Date End Date Juan R Osullivan MD [address] [place] [address] PCP - General Family Medicine 05/05/17 Fur Drummer Relationship Specialty Start Date End Date Juan R Osullivan MD [address] [place] [address] PCP - General Family Medicine 05/05/17 Fur Drummer Relationship Specialty Start Date End Date Juan R Osullivan MD [address] [place] [address] PCP - General Family Medicine 05/05/17 Fur Drummer Relationship Specialty Start Date End Date Juan R Osullivan MD [address] [place] [address] PCP - General Family Medicine 05/05/17 Fur Drummer Relationship Specialty Start Date End Date Juan R Osullivan MD [address] [place] [address] PCP - General Family Medicine 05/05/17 PodlogarIndia APRN.PLASTER BLOCK LAYER [address] [place] [address] Oxygraph Operator Family Medicine 06/30/24 Fur Drummer Relationship Specialty Start Date End Date Juan R Osullivan MD [address] [place] [address] PCP - General Family Medicine 05/05/17 Podlogar, ANDRES Osborne.PLASTER BLOCK LAYER [address] [place] [address] [facility] 06/30/24 Karla Almonte APRN.PLASTER BLOCK LAYER [address] [place] [address] [facility] 10/15/24 Fur Drummer Relationship Specialty Start Date End Date Juan R Osullivan MD [address] [place] [address] PCP - General Family Medicine 05/05/17 PodlogarIndia TUBULAR RIVETER.PLASTER BLOCK LAYER [address] [place] [address] [facility] 06/30/24 Karla Almonte APRN.PLASTER BLOCK LAYER [address] [place] [address] [facility] 10/15/24 Fur Drummer Relationship Specialty Start Date End Date Juan R Osullivan MD [address] [place] [address] PCP - General Family Medicine 05/05/17 PodlogarIndia TUBULAR RIVETER.PLASTER BLOCK LAYER [address] [place] [address] [facility] 06/30/24 Karla Almonte TUBULAR RIVETER.PLASTER BLOCK LAYER [address] [place] [address] [facility] 01/03/25 Fur Drummer Relationship Specialty Start Date End Date Juan R Osullivan MD [address] [place] [address] PCP - General Family Medicine 05/05/17 India Tavares, TUBULAR RIVETER.PLASTER BLOCK LAYER [address] [place], [place] [id number] [facility] 06/[facility]/24 Karla Almonte APRN.PLASTER BLOCK LAYER [address] [place], [place] [address] [facility] 01/03/25 (unrecognized sect ion and content) No Status Records FoundNo Status Records FoundNo Status Records Found INFORMATION SOURCE (unrecogn ized section and content) DATE CREATED AUTHOR 12/26/2023 [facility] DATE CREATED AUTHOR AUTHOR'S ORGANIZ ATION 03/10/2024 [facility] DATE CREATED AUTHOR AUTHOR'S ORGANIZ ATION 11/26/2024 [facility] FOR RECORDS PERTAINING TO PATIENTS WHO ARE [...] BE BASED ON THE PRIMARY CLINICAL RECORDS. [employer] [facility]. provides no warranty or guarantee of the accuracy or completeness of information in this document.
--- NOTE | 2025-03-17 12:46 | NURSING ---
Dr. Wilburn and Dr. Caceres notified of pt's arrival. Called [facility] ER and requested imaging be sent to [facility] as was not sent with the patient.
--- NOTE | 2025-03-17 12:49 | HP.PCM.HOS_ITS ---
HPI - General General Date of Admission: 03/17/25 Date of Service: 03/17/25 Chief Complaint: Constipation HPI Narrative PHI CHA, is a 60 M who presents with 11-day history of constipation. Patient initially presented to [place] emergency department CT of the abdomen and pelvis was questionable for diverticulitis with an abscess versus sigmoid mass. Patient did receive IV antibiotics plan was for patient to have been admitted for subsequent eval patient however requested to be transferred to [facility]. Patient did report nausea but denied any vomiting. Reports passing some mucus per rectum. The surgeon on-call was notified prior to patient being admitted. [facility] Medical History HTN (hypertension) Diabetes Sleep apnea Home Medications ?Medication ?Instructions ?Recorded ?Last Taken ?Type empagliflozin 10 mg tablet 10 mg PO DAILY 03/17/25 Unk nown History (Jardiance) insulin glargine 100 unit/mL (3 10 unit subcut QPM Unknown History mL) subcutaneous pen (Lantus Solostar U-100 Insulin) Allergy/AdvReac Type Severity Reaction Status Date / Time lisinopril AdvReac Mild Nausea Verified 03/17/25 12:48 Surgical History no surgical history Social History (System 03/08/24 @ 13:33 by Hetal Echols) Smoking Status: Never smoker ROS ROS Narrative GENERAL: denies fever, chills, night sweats, weight loss, anorexia HEENT: denies headache, sinus congestion, or drainage, dysphagia RESPIRATORY: denies cough, sputum production, shortness of breath, dyspnea on exertion CARDIAC: denies chest pain, palpitations, orthopnea, PND GASTROINTESTINAL: Constipation and nausea GENITOURINARY: denies dysuria, urgency, frequency, heamaturia EXTREMITY: denies swelling MUSCULOSKELETAL: denies current joint pain or tenderness NEUROLOGIC: denies focal numbness, weakness, tingling HEMATOLOGIC: denies easy bruising and/or hemorrhage INTEGUMENT: denies rashes PSYCHIATRIC: denies suicidal or homicidal ideation Vital Signs Vital Signs Vital Signs: 03/17/25 12:27 Temperature 98.5 F Temperature Source Oral Pulse Rate 96 Respiratory Rate 18 Blood Pressure 134/84 H Blood Pressure Mean 100 Blood Pressure Source Monitor Blood Pressure Position Semi-Fowlers Blood Pressure Location Right Arm Pulse Ox 98 Oxygen Delivery Method Room Air Weight Weight: 115.893 kg Body Mass Index (BMI) 38.8 Physical Exam Narrative GENERAL: cooperative HEENT: Atraumatic; normocephalic EYES; Anicteric, Normal Conjunctiva NECK; supple, normal thyroid, RESPIRATORY: Diminished to auscultation CARDIOVASCULAR: Regular S1 S2, GI: soft but protuberant, normoactive bowel sounds, : No Renal angle tenderness; EXTREMITIES: No edema, no clubbing, MUSCULOSKELETAL: no muscle wasting NEURO: Awake; no lateralizing signs. SKIN: No Rash PSYCH; Flat affect Assessment & Plan Assessment/Plan (1) Colonic mass: PLAN: Plan Patient is a 60-year-old gentleman presenting with 11-day history of constipation found to have colonic mass on imaging study obtained on outside hospital 1. Colonic mass ? Patient presented with 7-day history of constipation. Patient has been admitted to regular nursing floor. Bowel prep initiated. Consult placed to b [facility] GI?Dr. Wilburn as well as Dr. Caceres with general surgery 2. Hypokalemia this has been corrected per protocol repeat K levels ordered to assess response to therapy 3. Diabetes mellitus type II -patient's oral hypoglycemics held. Placed on long acting insulin, Accu-Cheks a.c. and at bedtime and covered with sliding scale insulin 4. Hypertension ? Blood pressure controlled, home medications continued with dose adjustment as needed 5. Class II obesity with BMI of 38.8 ? Complicating care weight loss advised 6. Dyslipidemia ?Patient is on statin therapy, continued at home dose 7. Obstructive sleep apnea ? Consistent use of PAP therapy encouraged 8. DVT prophylaxis ? SCDs for now with plan to initiate chemoprophylaxis following any surgical intervention Time spent in the patient's overall evaluation,decision-making process, review of diagnostic data, adjustment of management, discussion with other providers, nursing nursing and ancillary staff involved in patient's care documentation, 55 Minutes Advance planning; did discuss with the patient regarding advanced directives as well as CODE STATUS. Did explain the various scenarios involved ( FULL CODE, DNR CCA, DNR CCA with no intubation, and DNR CC and what each meant) patient elected to remain full code with CPR intubation if warranted. Order was placed. Time spent on discussion 16 minutes. Charges/Coding Multi Select Codes Visit Charges Visit Charges: 35649 Init Hosp L2 Hospitalists' Procedures Procedures: 85098 Advncd Care Plan 30 Min
--- NOTE | 2025-03-17 12:53 | CT_ITS ---
PROCEDURE: ABDOMEN/PELVIS WITH CONTRAST 03/17/2025 REASON FOR EXAM: CONSTIPATION QUESTIONABLE COLON MASS TECHNIQUE: ABDOMEN/PELVIS WITH CONTRAST Coronal and Sagittal reconstruction series were provided. CONTRAST: Isovue 370 VOLUME: 97 mL One or more dose reduction techniques were used (e.g., Automated exposure control, adjustment of the mA and/or kV according to patient size, use of iterative reconstruction technique. RADIATION DOSE SUMMARY: CTDlvol: 9.47 and 32.86 mGy DLP: 1872.67 mGycm FINDINGS: Lung bases: Clear. No pleural effusions. Normal Liver: Normal Gallbladder: Intact. Vague suggestion of radiolucent stones Spleen: Unremarkable Pancreas: No inflammatory stranding or pseudocyst. Unremarkable pancreas. Adrenals: Normal Kidneys: Bilateral small renal cysts, Bosniak 1 requiring no follow-up. Kidneys are otherwise normal in location, contour and enhancement. No hydronephrosis. Bladder: Unremarkable Reproductive Organs: Enlarged prostate Bowel: Thickening and inflammatory stranding in the distal sigmoid colon. This is likely diverticulitis but has a masslike appearance and neoplasm can not be entirely excluded. Appendix: Normal appendix. Lymph nodes: No adenopathy. Vasculature: Unremarkable aorta and IVC Peritoneum / Retroperitoneum: Trace fluid around the inflamed sigmoid colon. No free air. Bones: No aggressive bony process. CT/Abdomen/Pelvis WITH Contrast IMPRESSION: Inflammatory sigmoid colon finding. More likely than not this is diverticuliti s, but lesion has a masslike appearance is sigmoid colon carcinoma can not be entirely excluded. Subtle suggestion of radiolucent gallstones. Consider gallbladder ultrasound f ollow-up if clinically relevant Reading Location: [facility]
[2025-03-17 13:05] LABS: Hematocrit 40.9 % (40-54); Hemoglobin 14.2 g/dL (13.0-16.5); Immature Granulocytes Count 0.030 X10^3/uL (0.0-0.0); Mean Corp Hgb Conc 34.7 g/dL (32-36); Mean Corpuscular Volume 84.9 fL (80-94); Mean Platelet Vol. 8.7 fl (6.2-12.0); NRBC Flagged by Analyzer 0 % (0-5); Platelet Count 326 K/mm3 (150-450); RBC Distribution Width CV 11.7 % (11.6-14.6); RBC Distribution Width SD 35.8 fl (35.1-43.9); Red Blood Count 4.82 M/mm3 (4.6-6.2); White Blood Count 11.6 K/mm3 (4.4-11.0)
[2025-03-17 13:28] LABS: AST(SGOT) 15 U/L (<=37); Alanine Aminotransfer ALT/SGPT 12 U/L (<=46); Albumin, Serum 3.6 g/dL (3.4-4.8); Alkaline Phosphatase 69 U/L (40-129); Anion Gap 13 (5-15); BUN 9 mg/dL (4-19); BUN/Creat Ratio 9.9 RATIO (10-20); Calcium,Total 8.8 mg/dL (7.6-11.0); Carbon Dioxide 23.6 mmol/L (21.0-32.0); Chloride 97 mmol/L (98-108); Estimated Creatinine Clearance 99.89 ml/min (50-250); Globulin 3.8 g/dL (2.2-4.2); Glucose 171 mg/dL (70-99); Magnesium 2.3 mg/dL (1.5-2.2); Potassium 3.3 mmol/L (3.3-5.1)
[2025-03-17 14:07] VITALS: O2SAT 98
[2025-03-17] MEDS: 0.9% Saline Lock 10 ML Syringe IV ×2 (14:26→21:11)
[2025-03-17 14:28] VITALS: BP 148/89; PULSE 79; RESP 18; TEMP 36.6; O2SAT 97
[2025-03-17] MEDS: Potassium Chloride Oral Tablet 20 MEQ PO (16:35)
[2025-03-17] MEDS: Polyethylene Glycol 3350 BOWEL PREP PO (16:36)
--- NOTE | 2025-03-17 17:56 | EX.PCM.CON.S ---
Assessment & Plan Assessment/Plan (1) Colonic mass: PLAN: Patient is 60-year-old male, past medical history of poorly controlled diabetes, who presents from outside facility with diagnosis of left colon mass that is causing at least partial large bowel obstruction. Patient reports 1 previous colonoscopy approximately 10 years ago that was unremarkable and his findings. However, for the last 11 days he has not had a true bowel movement. CT imaging demonstrates 10 x 7 cm mass of the sigmoid colon with surrounding diverticular disease. Therefore, differential must include neoplastic versus diverticular disease with intramural abscess. Repeat CT imaging with p.o. contrast was obtained but phase was suboptimal since contrast is yet to reach the area of the mass lesion. I have discussed with radiology techs that we should plan to obtain delayed pictures. Patient is currently completing a bowel prep for planned colonoscopy tomorrow. I discussed findings of patient's workup thus far with him at some length. Hand drawings were used to illustrate relevant anatomy and I also reviewed with him his index CT imaging. I shared the possibility of laparoscopic assisted sigmoid colectomy versus LAR with primary colorectal anastomosis versus sigmoid colectomy with ostomy versus diverting ostomy. I shared that if he is unable to have much output with his colon prep and his A1c remains prohibitive then I would strongly recommend we proceed with a colostomy as his risks for anastomotic leak would be prohibitive. He confirmed understanding of this conversation. I have obtained a updated hemoglobin A1c to assess for his glucose control given that his previous value is now 15 months old. Will continue to follow and evaluate patient next tomorrow a.m. Please notify of any acute changes. Fadi Caceres MD General Surgery Endocrine Surgery Pager: [facility] [address] [place] [address], [address] [place] [address] Office: [phone] (2) Large bowel obstruction: HPI Consult Data Date of Consult: 03/17/25 HPI Narrative Reason for Consultation: Concern for left colon mass HPI Narrative: PHI GONZALEZ, is a 60 M who presents to [facility] in direct transfer from [facility] after he presented there with complaints of constipation over the last 11 days. He states that his last bowel movement was 12 days ago and the following day when he went to have a bowel movement he only passed mucus. Since that time he has had constant cramping of his left lower quadrant and the result of attempted bowel movements has always been the same; mucus with some bright red blood. He reports feeling hot several days but is unable to say whether or not he has had any fevers or chills. He denies any nausea or vomiting. He denies any recent weight loss, but states that he has been reluctant to eat. Patient's ED workup that outside hospital showed mild leukocytosis of 11,[address] imaging demonstrating evidence of a sigmoid based mass measuring 10 x 7 cm. I was contacted by outside hospital for possible transfer after patient requested. For the interim patient has been started on a bowel prep by gastroenterology and also a CT scan with p.o. contrast has been completed but not yet read. Patient has a history of intermittent constipation which she states occurred approximately every 12 to 14 months but never lasted more than 3 to 5 days. Outside of this he shares a history of a colonoscopy completed between 9 and 11 years ago at an outpatient facility in [facility]. He reports this was done with Dr. Gutierrez and denies recalling any significant findings. Mr. Gonzalez denies any personal history of diverticulitis and unfortunately is unclear on his family history as he is adopted. Patient has a history of diabetes and reports his last A1c was 10.9 but this was obtained in November 2023. He shares that he has had to cancel a number of visits with his PCP due to his restricted work schedule. However, for the last 14 months he does report that he has been working to improve his glycemic control. He has no history of prior abdominal surgery. [facility] Medical History HTN (hypertension) Diabetes Sleep apnea Home Medications ?Medication ?Instructions ?Recorded ?Last Taken ?Type empagliflozin 10 mg tablet 10 mg PO DAILY 03/17/25 Unknown History (Jardiance) insulin glargine 100 unit/mL (3 10 unit subcut QPM 03/17/25 Unknown History mL) subcutaneous pen (Lantus Solostar U-100 Insulin) Allergy/AdvReac Type Severity Reaction Status Date / Time lisinopril AdvReac Mild Nausea Verified 03/17/25 12:48 Surgical History no surgical history Social History (System 03/08/24 @ 13:33 by Hetal Echols) Smoking Status: Never smoker Physical Exam Const alert, oriented x3, no apparent distress and well nourished General Appearance: cooperative Nutritional Appearance: obese Resp normal respiratory effort GI GI Narrative: Morbidly obese, no scars, no visible hernia, mildly distended, soft, mild tenderness to palpation of the left lower quadrant. Lab / Micro Data 03/17/25 12:55 03/17/25 12:55 Labs: Laboratory Results - last 24 hr 03/17/25 12:55: WBC 11.6 H, RBC 4.82, Hgb 14.2, Hct 40.9, MCV 84.9, MCH 29.5, MCHC 34.7, RDW Std Deviation 35.8, RDW Coeff of Tre 11.7, Plt Count 326, MPV 8.7, Immature Gran % (Auto) 0.300, Neut % (Auto) 82.0 H, Lymph % (Auto) 10.9 L, Sterling % (Auto) 6.0, Eos % (Auto) 0.5, Baso % (Auto) 0.3, Absolute Neuts (auto) 9.5 H, Absolute Lymphs (auto) 1.27, Nucleated RBC % 0, Sodium 134, Potassium 3.3, Chloride 97 L, Carbon Dioxide 23.6, Anion Gap 13, BUN 9, Creatinine 0.96, Estim Creat Clear Calc 99.89, Est GFR (MDRD) Non-Af 90, BUN/Creatinine Ratio 9.9 L, Glucose 171 H, Calcium 8.8, Phosphorus 2.9, Magnesium 2.3 H, Total Bilirubin 0.67, AST 15, ALT 12, Alkaline Phosphatase 69, Total Protein 7.3, Albumin 3.6, Globulin 3.8, Albumin/Globulin Ratio 0.9 03/17/25 16:32: POC Glucose 128 H Charges/Coding Visit Charges Inpatient E&M: 13431 Init Hosp L2
--- NOTE | 2025-03-17 19:41 | CT_ITS ---
PROCEDURE: ABDOMEN/PELVIS WITHOUT IV CONTRAST 03/17/2025 REASON FOR EXAM: CONSTIPATION,QUESTIONABLE COLON MASS TECHNIQUE: ABDOMEN/PELVIS WITHOUT CONT Noncontrast technique limits evaluation of the abdominal and pelvic viscera. Coronal and Sagittal reconstruction series were provided. One or more dose reduction techniques were used (e.g., Automated exposure control, adjustment of the mA and/or kV according to patient size, use of iterative reconstruction technique). RADIATION DOSE SUMMARY: CTDlvol: 20.8 mGy DLP: 5 1151.22 mGycm COMPARISON: Earlier today FINDINGS: Lung bases: Unremarkable. No infiltrates or nodules. Liver: No evidence of liver metastatic disease. Gallbladder: Normal Spleen: Normal Pancreas: Normal Adrenals: Normal Kidneys: Simple cyst right kidney otherwise unremarkable Bladder: Unremarkable Reproductive Organs: Enlarged prostate Bowel: 10 cm lesion is located in the mid to proximal sigmoid colon. This seems to have a nearly apple-core appearance to it this is a barium enema finding indicating colon carcinoma. The thickened tumor produces a nearly occlusive passage to contrast, but there is contrast seen on both sides a vague suggestion of a string of contrast getting through, also findings associated with colon cancer Appendix: Normal Lymph nodes: No pathologically enlarged lymph nodes are identified. Questionable punctate lymph nodes in the mesentery Vasculature: Aorta and IVC are unremarkable. Peritoneum / Retroperitoneum: Trace fluid around the lesion no free air. Bones: No aggressive bony lesion identified. CT/Abdomen/Pelvis without Cont IMPRESSION: Large 10 cm lesion in the proximal to mid sigmoid colon, likely representing co jaime carcinoma. Diverticulitis is considered much less likely. Reading Location[facility]
[2025-03-17 21:05] VITALS: BP 127/79; PULSE 81; RESP 18; TEMP 37; O2SAT 97
[2025-03-17] MEDS: 0.9% Normal Saline (250mL Bag) 250 ML 15 ML IV (21:10)
[2025-03-17] MEDS: Piperacil/Tazobactam 3.375 GM in 0.9% Normal Saline (50mL MB+) 50 ML IV (21:13)
[2025-03-18] VITALS (12 sets, daily range): BP systolic 108–151; BP diastolic 71–89; PULSE 72–85; RESP 16–18; TEMP 36.1–37.1; O2SAT 95–99; BMI 38.2; BMI 38.3
--- NOTE | 2025-03-18 | MASS_PTH ---
PATIENT: PHI CHA LOC: MS3 U#:[id number] AGE/SX: 60/M ROOM: [facility] RE03/17/[address]: Dr. Henrry Tian MD : 1965 BED: 1 DIS: 03/19/2025 SPEC #: [id number] RECD: 03/18/25 15:47 STATUS: MADDISON REShruti #: [id number] MICHAEL: 03/18/25 00:[address]: Sae Wilburn DEPT: SURGICAL PATHOLOGY RECD BY: Tavon Duarte ENTERED: 03/18/25 16:00 SP TYPE: Mass OTHR DR: MD Dr. Benitez Coello MD Dr. Michael Bortz, MD Dr. Nicholas F Kotsonis, MD Dr. Prakash Chand, MD Heather Evans, AUTISM SPECIALIST-C Klarissa Butler, AUTISM SPECIALIST-C MATTHEW Brizuela Tissues: A - COLON BIOPSY B - COLON BIOPSY Procedures: Frozen Section (charge) Surgery Specimen Level IV HEADER OPERATION: Colonoscopy, biopsy, frozen section PRE-OP DIAGNOSIS: Large bowel obstruction, colonic mass TISSUE SUBMITTED: A- Colonic mass for frozen section, B- Colonic mass biopsy FROZEN SECTION DIAGNOSIS A. Colon, mass, biopsy: Inflammatory lesion. MS.mr 03/18/2025 MICROSCOPIC DIAGNOSIS A. Colon, mass, biopsy: - Colonic mucosa with acute and chronic inflammation. - Negative for malignancy. B. Colon, mass, biopsy: - Colonic mucosa with acute and chronic inflammation - see note. - Negative for malignancy. Note: Reactive epithelial change is noted. No definitive dysplasia or significant crypt distortion is observed in these sections. MICROSCOPIC DESCRIPTION Slides are reviewed. GROSS DESCRIPTION A. Received fresh for frozen section diagnosis labeled with the patient's name and date of . Designated as colonic mass are 4 rodrigues-red tissue fragments, 0.2 cm to 0.5 cm. Entirely submitted for frozen section diagnosis and subsequently placed in cassette A1 for permanent sections. B. Received in fixative is one container labeled with the patient's name and designated Colonic mass biopsy. The specimen consists of a 1.1 x 0.4 x 0.2 cm aggregate of rodrigues tissue fragments. Entirely submitted in 1 cassette. DE 03/18/2025 CPT:66739o6,26792
[2025-03-18 04:46] LABS: Hematocrit 41.8 % (40-54); Hemoglobin 14.3 g/dL (13.0-16.5); Immature Granulocytes Count 0.040 X10^3/uL (0.0-0.0); Mean Corp Hgb Conc 34.2 g/dL (32-36); Mean Corpuscular Volume 85.5 fL (80-94); Mean Platelet Vol. 9.0 fl (6.2-12.0); NRBC Flagged by Analyzer 0 % (0-5); Platelet Count 335 K/mm3 (150-450); RBC Distribution Width CV 11.8 % (11.6-14.6); RBC Distribution Width SD 37.1 fl (35.1-43.9); Red Blood Count 4.89 M/mm3 (4.6-6.2); White Blood Count 9.7 K/mm3 (4.4-11.0)
[2025-03-18] MEDS: Piperacil/Tazobactam 3.375 GM in 0.9% Normal Saline (50mL MB+) 50 ML IV ×3 (05:15→22:04)
[2025-03-18 05:18] LABS: Anion Gap 14 (5-15); BUN 12 mg/dL (4-19); BUN/Creat Ratio 12.0 RATIO (10-20); Calcium,Total 9.1 mg/dL (7.6-11.0); Carbon Dioxide 25.0 mmol/L (21.0-32.0); Chloride 98 mmol/L (98-108); Estimated Creatinine Clearance 95.89 ml/min (50-250); Glucose 114 mg/dL (70-99); Potassium 3.3 mmol/L (3.3-5.1)
--- NOTE | 2025-03-18 06:00 | EKG12_ITS ---
Test Reason : AM EKG Blood Pressure : */* mmHG Vent. Rate : 79 BPM Atrial Rate : 79 BPM P-R Int : 142 ms QRS Dur : 94 ms QT Int : 394 ms P-R-T Axes : 42 -16 20 degrees QTcB Int : 451 ms Normal sinus rhythm Normal ECG No previous ECGs available Confirmed by JOSÉ SKINNER, CLAY ([id number]), assignment editor MAYNOR KWONG ([id number]) on 03/18/2025 12:59:34 PM Referred By: TATE Confirmed By: CLAY KUMAR MD
[2025-03-18] MEDS: 0.9% Normal Saline (1000mL) 1,000 ML 75 ML IV ×2 (09:46→22:08)
--- NOTE | 2025-03-18 10:13 | PN.SURG_ITS ---
Subjective Subjective Patient evaluated resting comfortably in bed. He is currently bowel prepping for a colonoscopy today. He notes only small amount of of loose stools. He denies any other concerns or compliants. Objective Data Objective Data Vital Signs: Vital Signs Temp Pulse Resp BP Pulse Ox O2 Del Method 97.2 F L 80 18 121/71 H 99 Room Air 03/18/25 07:44 03/18/25 07:44 03/18/25 07:44 03/18/25 07:44 03/18/25 07:44 03/18/25 07:44 Oxygen Delivery Method Room Air Weight: 252 lb 6.868 oz Body Mass Index (BMI) 38.2 Intake & Output: Intake and Output for Last 24 Hours 03/16/25 03/17/25 03/18/25 23:59 23:59 23:59 Intake Total 1000.25 / 1000.25 160 / 160 Balance 1000.25 / 1000.25 160 / 160 Lab / Micro Data 03/18/25 03:51 03/18/25 03:51 Labs: Laboratory Results - last 24 hr 03/17/25 12:55: WBC 11.6 H, RBC 4.82, Hgb 14.2, Hct 40.9, MCV 84.9, MCH 29.5, MCHC 34.7, RDW Std Deviation 35.8, RDW Coeff of Tre 11.7, Plt Count 326, MPV 8.7, Immature Gran % (Auto) 0.300, Neut % (Auto) 82.0 H, Lymph % (Auto) 10.9 L, Wells % (Auto) 6.0, Eos % (Auto) 0.5, Baso % (Auto) 0.3, Absolute Neuts (auto) 9.5 H, Absolute Lymphs (auto) 1.27, Nucleated RBC % 0, Sodium 134, Potassium 3.3, Chloride 97 L, Carbon Dioxide 23.6, Anion Gap 13, BUN 9, Creatinine 0.96, Estim Creat Clear Calc 99.89, Est GFR (MDRD) Non-Af 90, BUN/Creatinine Ratio 9.9 L, Glucose 171 H, Hemoglobin A1c 9.9 H, Calcium 8.8, Phosphorus 2.9, Magnesium 2.3 H, Total Bilirubin 0.67, AST 15, ALT 12, Alkaline Phosphatase 69, Total Protein 7.3, Albumin 3.6, Globulin 3.8, Albumin/Globulin Ratio 0.9 03/17/25 16:32: POC Glucose 128 H 03/17/25 21:08: POC Glucose 150 H 03/18/25 03:51: WBC 9.7, RBC 4.89, Hgb 14.3, Hct 41.8, MCV 85.5, MCH 29.2, MCHC 34.2, RDW Std Deviation 37.1, RDW Coeff of Tre 11.8, Plt Count 335, MPV 9.0, Immature Gran % (Auto) 0.400, Neut % (Auto) 69.0, Lymph % (Auto) 20.0, Wells % (Auto) 8.0, Eos % (Auto) 1.9, Baso % (Auto) 0.7, Absolute Neuts (auto) 6.7, Absolute Lymphs (auto) 1.94, Nucleated RBC % 0, Sodium 137, Potassium 3.3, Chloride 98, Carbon Dioxide 25.0, Anion Gap 14, BUN 12, Creatinine 1.00, Estim Creat Clear Calc 95.89, Est GFR (MDRD) Non-Af 86, BUN/Creatinine Ratio 12.0, G lucose 114 H, Calcium 9.1, TSH 3.780 03/18/25 06:35: POC Glucose 127 H Radiography Diagnostic Testing: Radiology Impression Abdomen/Pelvis CT 03/17/25 12:53 IMPRESSION: Inflammatory sigmoid colon finding. More likely than not this is diverticulitis, but lesion has a masslike appearance is sigmoid colon carcinoma can not be entirely excluded. Subtle suggestion of radiolucent gallstones. Consider gallbladder ultrasound follow-up if clinically relevant Reading Location: [facility] Abdomen/Pelvis CT 03/17/25 19:41 IMPRESSION: Large 10 cm lesion in the proximal to mid sigmoid colon, likely representing colon carcinoma. Diverticulitis is considered much less likely. Reading Location: [facility] Physical Exam GI GI Narrative: Abdomen- obtunded. Soft. Non-tender Assessment & Plan Assessment/Plan (1) Colonic mass: (2) Large bowel obstruction: PLAN: Plan I am following this patient in conjunction with Dr. Caceres. He has independently evaluated this patient. Labs reviewed Repeat delayed CT scan yesterday demonstrated a 10 cm apple-core lesion within the sigmoid colon Dr. Wilburn will plan to perform a colonoscopy today Dr. Caceres has discussed a laparoscopic possible conversion to open sigmoid colectomy with possible colostomy creation on Tuesday morning We will continue to monitor this patient Charges/Coding Visit Charges Inpatient E&M: 53692 [facility] Hosp L2
--- NOTE | 2025-03-18 10:17 | PN.HOSP_ITS ---
Subjective Subjective No issues overnight, doing well. Plan for colonoscopy today with plan for possible surgical intervention on Tuesday or Objective Data Objective Data Vital Signs: Vital Signs Temp Pulse Resp BP Pulse Ox O2 Del Method 97.2 F L 80 18 121/71 H 99 Room Air 03/18/25 07:44 03/18/25 07:44 03/18/25 07:44 03/18/25 07:44 03/18/25 07:44 03/18/25 07:44 Oxygen Delivery Method Room Air Weight: 252 lb 6.868 oz Body Mass Index (BMI) 38.2 Intake & Output: Intake and Output for Last 24 Hours 03/17/25 03/18/25 03/19/25 03:59 03:59 03:59 Intake Total 1050.25 / 1050.25 110 / 110 Balance 1050.25 / 1050.25 110 / 110 Lab / Micro Data 03/18/25 03:51 03/18/25 03:51 Labs: Laboratory Results - last 24 hr 03/17/25 12:55: WBC 11.6 H, RBC 4.82, Hgb 14.2, Hct 40.9, MCV 84.9, MCH 29.5, MCHC 34.7, RDW Std Deviation 35.8, RDW Coeff of Tre 11.7, Plt Count 326, MPV 8.7, Immature Gran % (Auto) 0.300, Neut % (Auto) 82.0 H, Lymph % (Auto) 10.9 L, [place] % (Auto) 6.0, Eos % (Auto) 0.5, Baso % (Auto) 0.3, Absolute Neuts (auto) 9.5 H, Absolute Lymphs (auto) 1.27, Nucleated RBC % 0, Sodium 134, Potassium 3.3, Chloride 97 L, Carbon Dioxide 23.6, Anion Gap 13, BUN 9, Creatinine 0.96, Estim Creat Clear Calc 99.89, Est GFR (MDRD) Non-Af 90, BUN/Creatinine Ratio 9.9 L, Glucose 171 H, Hemoglobin A1c 9.9 H, Calcium 8.8, Phosphorus 2.9, Magnesium 2.3 H, Total Bilirubin 0.67, AST 15, ALT 12, Alkaline Phosphatase 69, Total Protein 7.3, Albumin 3.6, Globulin 3.8, Albumin/Globulin Ratio 0.9 03/17/25 16:32: POC Glucose 128 H 03/17/25 21:08: POC Glucose 150 H 03/18/25 03:51: WBC 9.7, RBC 4.89, Hgb 14.3, Hct 41.8, MCV 85.5, MCH 29.2, MCHC 34.2, RDW Std Deviation 37.1, RDW Coeff of Tre 11.8, Plt Count 335, MPV 9.0, Immature Gran % (Auto) 0.400, Neut % (Auto) 69.0, Lymph % (Auto) 20.0, [place] % (Auto) 8.0, Eos % (Auto) 1.9, Baso % (Auto) 0.7, Absolute Neuts (auto) 6.7, Absolute Lymphs (auto) 1.94, Nucleated RBC % 0, Sodium 137, Potassium 3.3, Chloride 98, Carbon Dioxide 25.0, Anion Gap 14, BUN 12, Creatinine 1.00, Estim Creat Clear Calc 95.89, Est GFR (MDRD) Non-Af 86, BUN/Creatinine Ratio 12.0, G lucose 114 H, Calcium 9.1, TSH 3.780 03/18/25 06:35: POC Glucose 127 H Radiography Diagnostic Testing: Radiology Impression Abdomen/Pelvis CT 03/17/25 12:53 IMPRESSION: Inflammatory sigmoid colon finding. More likely than not this is diverticulitis, but lesion has a masslike appearance is sigmoid colon carcinoma can not be entirely excluded. Subtle suggestion of radiolucent gallstones. Consider gallbladder ultrasound follow-up if clinically relevant Reading Location: [facility] Abdomen/Pelvis CT 03/17/25 19:41 IMPRESSION: Large 10 cm lesion in the proximal to mid sigmoid colon, likely representing colon carcinoma. Diverticulitis is considered much less likely. Reading Location: [facility] Physical Exam Narrative General: Alert, Oriented x3, Cooperative, No apparent distress HEENT: Atraumatic, PERRLA, EOMI, Normocephalic Oral: Moist Mucosa Neck: Supple, No JVD Lungs: Clear to auscultation, Normal air movement, No rhonchi, No wheeze, No rales Cardiovascular: Regular rate, Regular Rhythm, Normal S1, Normal S2, No murmurs Abdomen: Soft, Non Tender, Non-Distended, No Hepato-splenomegaly Extremities: No edema, Capillary Refill Less than 3 Seconds Skin: No rashes, No breakdown Musculoskeletal: No Tenderness to Palpation of Joints or Extremities Neurological: No focal neurological deficits, Motor Exam 5/5 strength throughout, Sensory exam intact to light touch and pain Psych/Mental Status: Normal Affect, Appropriate Assessment & Plan Assessment/Plan (1) Colonic mass: PLAN: Plan 1. Colonic mass ? Unclear etiology, he had a colonoscopy about 10 years ago which was unremarkable. ? Plan for colonoscopy today and then surgery on Tuesday or for possible ostomy ? It appears of the concern for the ostomy is due to his diabetes as his A1c was 9.9 however his blood sugars here in the hospital have been in the 130s to 150s so very controlled 2. DM2 ? A1c of 9.9 ? Takes Jardiance and Lantus at home ? Accu-Cheks, sliding scale insulin ? Will monitor make adjustments as necessary DVT: SCDs Charges/Coding Visit Charges Inpatient E&M: 73374 Subs Hosp L2
--- NOTE | 2025-03-18 11:34 | WOUNDNOTE ---
In to talk with patient per nursing request. had also talked with Dr Caceres this am about pt as well. pt is scheduled for lap, sigmoid colectomy with probable colostomy on 03/20/25. Pt slightly tearful with discussion. started some discussion about what a colostomy is, what an appliance looks like, changing and emptying the appliance, showering, etc. Reviewed the teaching booklet. after discussion, patient was very appreciative. will talk with patient again tomorrow and porter for stoma if Dr Caceres desires. will continue ostomy care with patient post op. encouraged patient to have home health care at discharge as well for continuation of teaching and support. pt denies further questions at this time.
--- NOTE | 2025-03-18 12:07 | CASEMGMT ---
RN WILMA Assessment Face to Face with patient for initial transition planning/care coordination assessment. RN CM introduced self and role at [facility], pt voices understanding. Pt is A&Ox4 and is resting comfortably in bed and is calm. Care providers, pharmacy, and demographics verified. Admitting dx: Jenn RODRIGES Strata: 1 PCP: Zach Osullivan Specialists: Denies Preferred Pharmacy: [facility] Insurance:[employer] Prescription Benefit: Yes LNOK: Kasey Gonzalez (Friend), Ele (Daughter) Living Arrangements: Pt reports that he lives alone in a 2 story home with 3 total steps to enter ADLs/IADLs: Indep. 6-Click score is 24. Denies concerns Transportation: Self, friend, daughter DME: CPAP @ HS with no additional oxygen. BGM with sufficient supplies HHC/SNF: Denies hx of Pt?s goal: Home Plan: Anticipate home with skilled HHC (SN). Per chart review, pt is scheduled for a scope today at 1600 and possible surgery for colostomy placement Tuesday, 03/20. See wound care center consultant note. At this time, the pt states that he would be interested in SN HHC to help care for the potential new ostomy. [facility] DPA notified and plans to generate a list of options for the pt. Pt thanks this RN CM and denies further questions or concerns at this time. CM to follow. Alicia Jefferson RN, CM
--- NOTE | 2025-03-18 12:42 | CASEMGMT ---
Social Work SW spoke w/pt, he states daughter Kenia and son Lloyd are his HCPOAs, and his daughter will bring in the documents tomorrow. LUCÍA Angel
--- NOTE | 2025-03-18 12:43 | CASEMGMT ---
Discharge Planning A list of?HH providers including quality and resource use data and consistent with the patient's preferred geographic region, medical needs, and insurance network was created in [employer] Guide.? This list was provided to the RN WILMA. Jessica Castro, Discharge Planning Asst.
[2025-03-18] MEDS: Lactated Ringers 1,000 ML 15 ML IV (14:23)
--- NOTE | 2025-03-18 14:32 | PRE.ANES_ITS ---
ASA Classification* ASA Classification ASA Classification: 3 Assessment & Plan Anesthesia* Anesthesia Assessment Anesthesia Assessment: Discussed sedation and/or anesthesia options, risks, benefits, and alternatives with patient/parents/legal guardian/POA. Questions invited. The patient/parents/legal guardian/POA seems to understand and agrees to proceed with anesthesia plan. Reviewed the physical assessment, medical history, allergy history and patient home medications list prior to surgery/procedure/anesthetic and documented any changes. Performed airway and anesthesia risk assessments. Anesthesia Type Anesthesia Type: MAC Anesthesia Focused Assessment* Temperature: 98.7 F Pulse Rate: 84 Blood Pressure: 138/81 Respiratory Rate: 18 Pulse Ox: 96 Oxygen Delivery Method: Room Air Airway Assessment Mouth opens: 2 cm Mallampati Score: II Teeth Condition: Intact Labs Anesthesia Preop lab: CBC WBC 9.7 K/mm3 (4.4-11.0) 03/18/25 03:51 03/18/25 RBC 4.89 M/mm3 (4.6-6.2) 03/18/25 03:51 03/18/25 Hgb 14.3 g/dL (13.0-16.5) 03/18/25 03:51 03/18/25 Hct 41.8 % (40-54) 03/18/25 03:51 03/18/25 Plt Count 335 K/mm3 (150-450) 03/18/25 03:51 03/18/25 CHEMISTRY Potassium 3.3 mmol/L (3.3-5.1) 03/18/25 03:51 03/18/25 Sodium 137 mmol/L (133-145) 03/18/25 03:51 03/18/25 Magnesium 2.3 mg/dL (1.5-2.2) H 03/17/25 12:55 03/17/25 Phosphorus 2.9 mg/dL (2.7-4.5) 03/17/25 12:55 03/17/25 BUN 12 mg/dL (4-19) 03/18/25 03:51 03/18/25 Creatinine 1.00 mg/dL (0.70-1.20) 03/18/25 03:51 03/18/25 Glucose 114 mg/dL (70-99) H 03/18/25 03:51 03/18/25 POC Glucose 119 mg/dL (74-106) H 03/18/25 11:42 03/18/25 TSH 3.780 uIU/mL (0.300-4.200) 03/18/25 03:51 02/23 12/16 COAG Pre-Assessment Diagnosis/Proposed Procedure Planned Operative Procedure(s): Colonoscopy Anesthesia History 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 When Was Last Pacemaker Check QUESTION #4 FULL TEXT: You/Your Family Experience fever (hyperthermia) with Anesthesia Last Oral Intake Last Oral intake: Last Oral Intake NPO since 00:00 03/18/25 13:53 Meds taken in AM with sips of water? Meds patient instructed to take am of surgery PONV PONV - healthcare sales representative: PONV - healthcare sales representative Female HX of Motion Sickness HX of N/V After Surgery Non-Smoker Duration of Surgery greater than 60 minutes Number of Risk Factors PONV Score Height & Weight Height & Weight: Anesthesia: Height & Weight Height 5 ft 8 in 03/18/25 13:53 Weight: 114.5 kg 03/18/25 13:53 Body Mass Index (BMI) 38.3 03/18/25 13:53 Respiratory Assessment Respiratory Assessment - healthcare sales representative: Respiratory Tract Infection Hx - healthcare sales representative Hx Respiratory Tract Infection No 03/18/25 03:44 STOP Sleep Apnea STOP Sleep Apnea - healthcare sales representative: STOP Sleep Apnea - healthcare sales representative Hx Hypertension Yes 03/17/25 12:22 Hx Sleep Apnea Yes 03/17/25 12:22 CPAP No 03/17/25 12:22 BIPAP No 03/17/25 12:22 Do you snore loudly (louder than talking or can be heard Do you often feel tired/ fatigued/ sleepy during daytime? Has anyone observed you stop breathing during sleep? STOP Results Positive 03/17/25 12:22 QUESTION #5 FULL TEXT : Do you snore loudly (louder than talking or can be heard through closed doors)? 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 Specify any problems Hx of Preganancy in last 3 N/A 03/17/25 12:22 Months Nurse Filling Out Transfusion KMESSENGE 03/17/25 12:22 & Questions: Date: 03/17/25 03/17/25 12:22 Time: 12:36 03/17/25 12:22 Patient unable to answer at this time (ie. confused, unrespo /Reproduction History /Reproductive History - healthcare sales representative: /Reproductive Hx- healthcare sales representative Hx Now Gestational Age (in weeks): EDC: Hx Hx Para Hx Section SAB Active Medications Active Medications: Current Medications Generic Name Dose Route Start Last Admin Trade Name Freq PRN Reason Stop Dose Admin Acetaminophen 650 mg 03/17/25 12:33 03/17/25 19:30 Acetaminophen 325 Mg Tablet PO 650 mg Q6H PRN PRN Administration Pain 1-10 Or Fever>100.7 Al Hydroxide/Mg Hydroxide 30 ml 03/17/25 12:33 Mag Hydrox/Al Hydrox/Simeth 30 Ml Udc PO Q6H PRN PRN Gastric Burning Albuterol Sulfate 2.5 mg 03/17/25 12:33 Albuterol 2.5 Mg/3 Ml Vial.Neb. INHALATION Q2H PRN PRN SOB &/OR WHEEZING Glucagon 1 mg 03/17/25 12:54 Glucagon 1 Mg/Ml Syringe IM X1 PRN Hypoglycemia Protocol Guaifenesin 20 ml 03/17/25 12:33 Guaifenesin 10 Ml Udc (200mg/10ml) PO Q4H PRN PRN COUGH Sodium Chloride 250 mls @ 15 mls/hr 03/17/25 12:24 03/18/25 05:15 IV 0 mls/hr .[id number] PRN Infusion Saline Flush Sodium Chloride 250 mls @ 15 mls/hr 03/17/25 12:24 IV .[id number] PRN Additional IVPB Infusion Dextrose 250 mls @ 0 mls/hr 03/17/25 12:54 Dextrose 10%-Water IV .Q0M PRN HYPOGLYCEMIA Protocol As Directed Piperacillin Sod/Tazobactam 50 mls @ 12.5 mls/hr 03/17/25 22:00 03/18/25 09:15 Sod 3.375 gm/ Sodium Chloride IV Infused Q8 DIDI Infusion Sodium Chloride 1,000 mls @ 75 mls/hr 03/18/25 09:30 03/18/25 09:46 IV 75 mls/hr .[id number] DIDI Administration Lactated Ringer's 1,000 mls @ 15 mls/hr 03/18/25 14:15 03/18/25 14:23 IV 15 mls/hr .Q48H DDII Administration Insulin Glargine 10 unit 03/17/25 22:00 03/17/25 21:09 Insulin Glargine-Yfgn 100 Unit/Ml Pen SC Not Given QHS DIDI Protocol Insulin Human Lispro 0 unit 03/17/25 16:00 03/18/25 14:18 Insulin Lispro 100 Unit/Ml Insuln.Pen SC Not Given ACHS DIDI Protocol Melatonin 3 mg 03/17/25 12:33 Melatonin 3 Mg Tablet PO QHS PRN PRN INSOMNIA Ondansetron HCl 4 mg 03/17/25 12:33 Ondansetron 4 Mg/2 Ml Vial IV Q8H PRN PRN NAUSEA/VOMITING Potassium Chloride 20 meq 03/17/25 17:00 03/18/25 09:51 Potassium Chloride Oral Tablet 20 Meq PO Not Given BIDCM DIDI Sodium Chloride 10 - 40 ml 03/17/25 12:24 03/17/25 21:11 0.9% Saline Lock 10 Ml Syringe IV 10 ml UD PRN Administration SALINE FLUSH PFSH Medical History HTN (hypertension) Diabetes Sleep apnea Home Medications ?Medication ?Instructions ?Recorded ?Last Taken ?Type empagliflozin 10 mg tablet 10 mg PO DAILY 03/17/25 Unk nown History (Jardiance) insulin glargine 100 unit/mL (3 10 unit subcut QPM Unknown History mL) subcutaneous pen (Lantus Solostar U-100 Insulin) Allergy/AdvReac Type Severity Reaction Status Date / Time lisinopril AdvReac Mild Nausea Verified 03/17/25 12:48 Surgical History no surgical history Social History (System 03/08/24 @ 13:33 by Hetal Echols) Smoking Status: Never smoker Review of Systems (Anesthesia) ROS Narrative System reviewed and no additional complaints, except as documented.
--- NOTE | 2025-03-18 15:16 | HP.PCM_ITS ---
HPI - General General Date of Admission: 03/17/25 Date of Service: 03/18/25 Chief Complaint: Constipation HPI Narrative PHI CHA, is a 60 M who presents with 11-day history of constipation. Patient initially presented to [place] emergency department CT of the abdomen and pelvis was questionable for diverticulitis with an abscess versus sigmoid mass. Patient did receive IV antibiotics plan was for patient to have been admitted for subsequent eval patient however requested to be transferred to [facility]. Patient did report nausea but denied any vomiting. Reports passing some mucus per rectum. CT/Abdomen/Pelvis WITH Contrast at outside institution IMPRESSION: Inflammatory sigmoid colon finding. More likely than not this is diverticulitis, but lesion has a masslike appearance is sigmoid colon carcinoma can not be entirely excluded. CT/Abdomen/Pelvis without Cont at our institution IMPRESSION: Large 10 cm lesion in the proximal to mid sigmoid colon, likely representing colon carcinoma. Diverticulitis is considered much less likely. [facility] Medical History HTN (hypertension) Diabetes Sleep apnea Home Medications ?Medication ?Instructions ?Recorded ?Last Taken ?Type empagliflozin 10 mg tablet 10 mg PO DAILY 03/17/25 Unk nown History (Jardiance) insulin glargine 100 unit/mL (3 10 unit subcut QPM Unknown History mL) subcutaneous pen (Lantus Solostar U-100 Insulin) Allergy/AdvReac Type Severity Reaction Status Date / Time lisinopril AdvReac Mild Nausea Verified 03/17/25 12:48 Surgical History no surgical history Social History Smoking Status: Never smoker ROS Constitutional Constitutional: Denies fatigue, fever(s), poor appetite, weight gain or weight loss Gastrointestinal Gastrointestinal: Denies belching, bloating, change in bowel habits, change in stool character, chewing difficulty, coffee ground emesis, constipation, cramping, diarrhea, dyspepsia, dysphagia, early satiety, excessive flatus, fecal incontinence, heartburn, hematemesis, hematochezia, hemorrhoids, loose stools, melena, nausea, odynophagia, rectal bleeding, tenesmus, vomiting or weight changes Vital Signs Vital Signs Vital Signs: 03/17/25 19:33 03/17/25 21:05 03/18/25 03:47 Temperature 98.6 F 97.3 F L Temperature Source Oral Oral Pulse Rate 81 82 Pulse Strength Respiratory Rate 18 18 Respiratory Effort Normal Respiratory Depth Normal Respiratory Pattern Normal Blood Pressure 127/79 H 132/84 H Blood Pressure Mean 95 100 Blood Pressure Source Blood Pressure Position Blood Pressure Location Pulse Ox 97 97 Oxygen Delivery Method Room Air Room Air Room Air 03/18/25 07:44 03/18/25 08:00 03/18/25 10:00 Temperature 97.2 F L Temperature Source Temporal Pulse Rate 80 Pulse Strength Normal (2+) Respiratory Rate 18 Respiratory Effort Respiratory Depth Respiratory Pattern Blood Pressure 121/71 H Blood Pressure Mean 87 Blood Pressure Source Monitor Blood Pressure Position Right Lateral Blood Pressure Location Right Arm Pulse Ox 99 Oxygen Delivery Method Room Air Room Air 03/18/25 10:30 03/18/25 13:53 03/18/25 13:53 Temperature 98.7 F 98.7 F Temperature Source Oral Oral Pulse Rate 84 84 Pulse Strength Respiratory Rate 18 18 Respiratory Effort Respiratory Depth Respiratory Pattern Blood Pressure 138/81 H Blood Pressure Mean 100 Blood Pressure Source Monitor Blood Pressure Position Semi-Fowlers Blood Pressure Location Right Arm Pulse Ox 97 96 96 Oxygen Delivery Method Room Air Room Air Room Air 03/18/25 14:32 Temperature 98.7 F Temperature Source Pulse Rate 84 Pulse Strength Respiratory Rate 18 Respiratory Effort Respiratory Depth Respiratory Pattern Blood Pressure 138/81 H Blood Pressure Mean Blood Pressure Source Blood Pressure Position Blood Pressure Location Pulse Ox 96 Oxygen Delivery Method Room Air Weight Weight: 252 lb 6.868 oz Body Mass Index (BMI) 38.3 Physical Exam Const alert, oriented x3, no apparent distress and healthy appearing General Appearance: cooperative GI normal to inspection, nondistended, normoactive bowel sounds, soft to palpation, non-tender and non-distended Percussion: normal to percussion Rectal Exam: deferred Results Lab / Micro Data 03/18/25 03:51 03/18/25 03:51 Labs: Laboratory Results - last 24 hr 03/17/25 12:55: Hemoglobin A1c 9.9 H 03/17/25 16:32: POC Glucose 128 H 03/17/25 21:08: POC Glucose 150 H 03/18/25 03:51: WBC 9.7, RBC 4.89, Hgb 14.3, Hct 41.8, MCV 85.5, MCH 29.2, MCHC 34.2, RDW Std Deviation 37.1, RDW Coeff of Tre 11.8, Plt Count 335, MPV 9.0, Immature Gran % (Auto) 0.400, Neut % (Auto) 69.0, Lymph % (Auto) 20.0, [place] % (Auto) 8.0, Eos % (Auto) 1.9, Baso % (Auto) 0.7, Absolute Neuts (auto) 6.7, Absolute Lymphs (auto) 1.94, Nucleated RBC % 0, Sodium 137, Potassium 3.3, Chloride 98, Carbon Dioxide 25.0, Anion Gap 14, BUN 12, Creatinine 1.00, Estim Creat Clear Calc 95.89, Est GFR (MDRD) Non-Af 86, BUN/Creatinine Ratio 12.0, G lucose 114 H, Calcium 9.1, TSH 3.780 03/18/25 06:35: POC Glucose 127 H 03/18/25 11:42: POC Glucose 119 H Imaging Radiology Impression Abdomen/Pelvis CT 03/17/25 12:53 IMPRESSION: Inflammatory sigmoid colon finding. More likely than not this is diverticulitis, but lesion has a masslike appearance is sigmoid colon carcinoma can not be entirely excluded. Subtle suggestion of radiolucent gallstones. Consider gallbladder ultrasound follow-up if clinically relevant Reading Location: [facility] Abdomen/Pelvis CT 03/17/25 19:41 IMPRESSION: Large 10 cm lesion in the proximal to mid sigmoid colon, likely representing colon carcinoma. Diverticulitis is considered much less likely. Reading Location: [facility] Assessment & Plan Assessment/Plan (1) Large bowel obstruction: (2) Colonic mass: PLAN: Plan Patient is a 60-year-old gentleman presenting with 11-day history of constipation found to have colonic mass on imaging study obtained on outside hospital and at our hospital in a patient with new onset constipation and weight loss. He will undergo colonoscopy to evaluate his lower GI tract. He was explained alternatives, risk and benefits include not withstanding bleeding, infection, sepsis, perforation, need for charge and . He will have an ASA of 3. Charges/Coding Visit Charges Inpatient E&M: 80846 Init Hosp L2
[2025-03-18] MEDS: Lactated Ringers 500 ML IV (15:25)
--- NOTE | 2025-03-18 15:32 | CASEMGMT ---
DALJIT CM into pt room to deliver HH list, pt is off of the floor at this time.
--- NOTE | 2025-03-18 15:51 | PCM.POST.ANE ---
Anesthesia: Postop Eval I Current Vital Signs Temperature: 97.9 F Pulse Rate: 85 Blood Pressure: 111/78 Respiratory Rate: 16 Pulse Ox: 98 Assessment Airway patent: Yes Spontaneous unlabored respirations: Yes nausea: No Vomiting: No Anesthesia Complication: No Fluid Hydration Crystalloid volume administer (ml): 500 Total IV fluid infused: 500 Progress Note Anesthesia document: Postop Eval 1 completed: Yes
--- NOTE | 2025-03-18 16:00 | OP.COLON_ITS ---
Patient Name: Azar Gonzalez Procedure Date: 03/18/2025 3:19 PM Date of : 1965 Age: 60 Procedure: Colonoscopy Indications: Abdominal pain in the left lower quadrant, Abnormal CT of the GI tract Providers: Sae Wilburn DO Medicines: Monitored Anesthesia Care Patient Profile: This is a 60 year old male. Refer to note in patient chart for documentation of history and physical. Last Colonoscopy: several years ago. Complications: No immediate complications. Procedure: Pre-Anesthesia Assessment: - Prior to the procedure, a History and Physical was performed, and patient medications and allergies were reviewed. The patient is competent. The risks and benefits of the procedure and the sedation options and risks were discussed with the patient. All questions were answered and informed consent was obtained. Patient identification and proposed procedure were verified by the physician in the pre-procedure area. Mental Status Examination: alert and oriented. Airway Examination: normal oropharyngeal airway and neck mobility. Respiratory Examination: clear to auscultation. CV Examination: normal. Prophylactic Antibiotics: The patient does not require prophylactic antibiotics. Prior Anticoagulants: The patient has taken no anticoagulant or antiplatelet agents. ASA Grade Assessment: III - A patient with severe systemic disease. After reviewing the risks and benefits, the patient was deemed in satisfactory condition to undergo the procedure. The anesthesia plan was to use monitored anesthesia care (MAC). Immediately prior to administration of medications, the patient was re-assessed for adequacy to receive sedatives. The heart rate, respiratory rate, oxygen saturations, blood pressure, adequacy of pulmonary ventilation, and response to care were monitored throughout the procedure. The physical status of the patient was re-assessed after the procedure. After I obtained informed consent, the scope was passed under direct vision. Throughout the procedure, the patient's blood pressure, pulse, and oxygen saturations were monitored continuously. The Colonoscope was introduced through the anus and advanced to the cecum, identified by appendiceal orifice and ileocecal valve. The colonoscopy was performed without difficulty. The patient tolerated the procedure well. The quality of the bowel preparation was poor. Anatomical landmarks were photographed. Scope In: 3:32:50 PM Scope Out: 3:43:03 PM Total Procedure Duration Time 0 hours 10 minutes 13 seconds Findings: The perianal and digital rectal examinations were normal. Multiple small and large-mouthed diverticula were found in the recto-sigmoid colon, sigmoid colon and descending colon. Segmental severe inflammation characterized by granularity and deep ulcerations was found in the recto-sigmoid colon, in the sigmoid colon and in the descending colon. Biopsies were taken with a cold forceps for histology. Verification of patient identification for the specimen was done. Estimated blood loss was minimal. An ulcerated non-obstructing large mass was found in the sigmoid colon and in the descending colon. The mass was circumferential. The mass measured seven cm in length. In addition, its diameter measured four mm. No bleeding was present. This was biopsied with a cold forceps for histology and diagnostic purposes. Verification of patient identification for the specimen was done. Estimated blood loss was minimal. A large amount of stool was found in the sigmoid colon, in the descending colon, at the splenic flexure, in the transverse colon, at the hepatic flexure, in the ascending colon and in the cecum. Impression: - Preparation of the colon was poor. - Diverticulosis in the recto-sigmoid colon, in the sigmoid colon and in the descending colon. - Segmental severe inflammation was found in the recto-sigmoid colon, in the sigmoid colon and in the descending colon secondary to ischemic colitis. Biopsied. - Benign tumor in the sigmoid colon and in the descending colon. Biopsied. - Stool in the sigmoid colon, in the descending colon, at the splenic flexure, in the transverse colon, at the hepatic flexure, in the ascending colon and in the cecum. Recommendation: - Return patient to [facility] for ongoing care. - Full liquid diet today. - Continue present medications. - Await pathology results. - Repeat colonoscopy in 4 months for surveillance. Procedure Code(s): --- Professional --- 12398, Colonoscopy, flexible; with biopsy, single or multiple CPT copyright 2021 [employer]. All rights reserved. The codes documented in this report are preliminary and upon medical billing coder review may be revised to meet current compliance requirements. Sae Wilburn DO 03/18/2025 3:59:43 PM This report has been signed electronically. Number of Addenda: 0 Note Initiated On: 03/18/2025 3:19 PM
--- NOTE | 2025-03-18 16:00 | OP.PROVAT_ITS ---
03/18/2025 Pepe Osullivan Re : Colonoscopy procedure for Azar Osullivan This procedure was performed on Tuesday, March 18, 2025. My impressions and recommendations are as follows: Impressions : - Preparation of the colon was poor. - Diverticulosis in the recto-sigmoid colon, in the sigmoid colon and in the descending colon. - Segmental severe inflammation was found in the recto-sigmoid colon, in the sigmoid colon and in the descending colon secondary to ischemic colitis. Biopsied. - Benign tumor in the sigmoid colon and in the descending colon. Biopsied. - Stool in the sigmoid colon, in the descending colon, at the splenic flexure, in the transverse colon, at the hepatic flexure, in the ascending colon and in the cecum. Recommendations : - Return patient to [facility] for ongoing care. - Full liquid diet today. - Continue present medications. - Await pathology results. - Repeat colonoscopy in 4 months for surveillance. My findings are described in the full procedure note, which is enclosed. If I can be of further assistance, please feel free to contact me at . Sincerely, Sae Wilburn, 03/18/2025 3:59:43 PM This report has been signed electronically.
[2025-03-18] MEDS: Potassium Chloride Oral Tablet 20 MEQ PO (17:44)
[2025-03-19 05:21] VITALS: BP 139/86; PULSE 80; RESP 16; TEMP 36.5; O2SAT 98
[2025-03-19] MEDS: Piperacil/Tazobactam 3.375 GM in 0.9% Normal Saline (50mL MB+) 50 ML IV (05:29)
[2025-03-19 06:00] VITALS: BMI 38.6
[2025-03-19 07:39] LABS: Hematocrit 39.2 % (40-54); Hemoglobin 13.5 g/dL (13.0-16.5); Immature Granulocytes Count 0.050 X10^3/uL (0.0-0.0); Mean Corp Hgb Conc 34.4 g/dL (32-36); Mean Corpuscular Volume 85.8 fL (80-94); Mean Platelet Vol. 9.1 fl (6.2-12.0); NRBC Flagged by Analyzer 0 % (0-5); Platelet Count 330 K/mm3 (150-450); RBC Distribution Width CV 11.8 % (11.6-14.6); RBC Distribution Width SD 36.9 fl (35.1-43.9); Red Blood Count 4.57 M/mm3 (4.6-6.2); White Blood Count 9.8 K/mm3 (4.4-11.0)
[2025-03-19 08:14] VITALS: O2SAT 95
[2025-03-19 08:31] LABS: Anion Gap 12 (5-15); BUN 12 mg/dL (4-19); BUN/Creat Ratio 13.6 RATIO (10-20); Calcium,Total 8.6 mg/dL (7.6-11.0); Carbon Dioxide 22.8 mmol/L (21.0-32.0); Chloride 102 mmol/L (98-108); Estimated Creatinine Clearance 108.63 ml/min (50-250); Glucose 98 mg/dL (70-99); Potassium 3.4 mmol/L (3.3-5.1)
[2025-03-19 08:38] VITALS: BP 133/77; PULSE 71; RESP 18; TEMP 36.3; O2SAT 99
[2025-03-19] MEDS: Potassium Chloride Oral Tablet 20 MEQ PO (08:41)
--- NOTE | 2025-03-19 08:52 | DCINST_ITS ---
Discharge Instructions DC O2, CPAP, BIPAP needs Home O2 Discharge instructions: No Dressing / Incision Discharge Activity: Return to Normal Activity Dressing / Incision Call your doctor if you observe: Fever of 101 or Higher, Shortness of breath, Dizziness, Fainting spells, Swelling in the ankles, Chest pain and Increased palpitations (irregular heartbeat) Follow Up Care Test Results: Test results from this visit will be discussed in further detail at your follow- up appointment, if applicable. Discharge Plan Admission Admit Date/Time: 03/17/25 12:22 Attending Provider: Henrry Tian Primary Care Provider: Pepe Osullivan Consulting Providers: Colby Romo; Sae Wilburn; Gwendolyn Cooper; Klarissa Butler; Caitie Sher; Fadi Caceres; Benitez Bianchi Instructions Patient Instructions: Diabetes Food Tips Ch, Diabetes Exercise Program Start, Diabetes Fitness Progress, Diabetes Carbs Fats Protein Discharge Orders/Prescriptions Prescriptions: New amoxicillin-pot clavulanate 875-125 mg tablet 1 tab PO BID Qty: 16 0RF Continued Jardiance 10 mg tablet 10 mg PO DAILY insulin glargine [Lantus Solostar U-100 Insulin] 100 unit/mL (3 mL) insulin pen 10 unit subcut QPM Referrals / Follow Up: Pepe Osullivan MD [Primary Care Provider] - Within 1 Week Fadi Caceres MD [Med Staff - Active Staff] - Within 2 Weeks Sae Wilburn DO [Med Staff - Active Staff] - Within 1 Month Disposition Disposition (needs filled in before D/C Order can be placed): Home, Self Care
--- NOTE | 2025-03-19 09:16 | CASEMGMT ---
Pt has an order for DC placed. Pt to DC as long as he tolerates his diet today. Per chart review, colostomy surgery for tomorrow has been canceled. See colonoscopy results. DALJIT CM to the pt room at this time. Pt is sitting up in the bed and is eating breakfast. Pt states that he is happy about the colonoscopy results and that he plans to follow up as an OP in 4 months for a repeat scope. Pt states that he feels safe returning home today and denies the need for HH now. Pt's only concern at this time is that he would like to talk to the solderer furnace prior to DC. TC to [facility] solderer furnace at this time and notified. Pt denies any further DC needs.
--- NOTE | 2025-03-19 10:31 | PHA.DC_ITS ---
Pharmacy [facility] [place] [facility] has performed discharge medication reconciliation and counseling for this patient. 1. AUGMENTIN 875MG PO BID X 8 DAYS The patient's discharge medication list was reviewed for discrepancies and discrepancies were resolved. The patient was counseled on the following discharge medications and changes in medications for homegoing were reviewed. The Reason for Use, instructions for use, and potential side effects were reviewed for all new medications. The patient's questions regarding all of their medications were answered. The patient was able to verbally demonstrate an understanding of their discharge medications. Medications at Discharge Home Medications empagliflozin 10 mg tablet (Jardiance) 10 mg PO DAILY 03/17/25 insulin glargine 100 unit/mL (3 mL) subcutaneous pen (Lantus Solostar U-100 Insulin) 10 unit subcut QPM 03/17/25 amoxicillin 875 mg-potassium clavulanate 125 mg tablet 1 tab PO BID #16 tabs 03/19/25
--- NOTE | 2025-03-19 11:24 | PCM.PN.SRG ---
Subjective Subjective Patient evaluated resting comfortably in bed. He notes feeling much improved. He denies any abdominal pain. He is passing a little flatus and having loose stools. He he notes tolerating full liquids. Objective Data Objective Data Vital Signs: Vital Signs Temp Pulse Resp BP Pulse Ox O2 Del Method 97.4 F L 71 18 133/77 H 99 Room Air 03/19/25 08:38 03/19/25 08:38 03/19/25 08:38 03/19/25 08:38 03/19/25 08:38 03/19/25 08:38 Oxygen Delivery Method Room Air Weight: 253 lb 15.56 oz Body Mass Index (BMI) 38.6 Intake & Output: Intake and Output for Last 24 Hours 03/17/25 03/18/25 03/19/25 23:59 23:59 23:59 Intake Total 1000. / 1000.25 1506.5 / 1506.5 400 / 400 Balance 1000. / 1000.25 1506.5 / 1506.5 400 / 400 Lab / Micro Data 03/19/25 06:31 03/19/25 06:31 Labs: Laboratory Results - last 24 hr 03/18/25 11:42: POC Glucose 119 H 03/18/25 17:25: POC Glucose 91 03/18/25 22:03: POC Glucose 117 H 03/19/25 06:31: WBC 9.8, RBC 4.57 L, Hgb 13.5, Hct 39.2 L, MCV 85.8, MCH 29.5, MCHC 34.4, RDW Std Deviation 36.9, RDW Coeff of Tre 11.8, Plt Count 330, MPV 9.1, Immature Gran % (Auto) 0.500, Neut % (Auto) 76.2 H, Lymph % (Auto) 12.8 L, [place] % (Auto) 7.2, Eos % (Auto) 2.8, Baso % (Auto) 0.5, Absolute Neuts (auto) 7.5, Absolute Lymphs (auto) 1.26, Nucleated RBC % 0, Sodium 137, Potassium 3.4, Chloride 102, Carbon Dioxide 22.8, Anion Gap 12, BUN 12, Creatinine 0.88, Estim Creat Clear Calc 108.63, Est GFR (MDRD) Non-Af 98, BUN/Creatinine Ratio 13.6, Glucose 98, Calcium 8.6 03/19/25 06:32: POC Glucose 104 Physical Exam GI GI Narrative: Abdomen- obese, nontender Assessment & Plan Assessment/Plan (1) Colonic mass: (2) Ischemic colitis: PLAN: Plan I am following this patient in conjunction with Dr. Boykin in Dr. Caceres's absence. he has independently evaluated this patient. Patient completed c-scope with Dr. Wilburn yesterday which demonstrated ischemic colitis with an inflammatory mass. Plan is to let patient start diet if tolerates may be discharged to home on oral antibiotics Plan for a colonoscopy in 3-[address] Wilburn and follow-up in 1 month Follow-up with Dr. Caceres in 2 weeks Discussed low residue/low fiber diet with the patient Tomorrow's OR procedure canceled for the patient Charges/Coding Visit Charges Inpatient E&M: 06388 Subs Hosp L2
--- NOTE | 2025-03-19 15:32 | DS.PCM_ITS ---
Providers Date of Admission: 03/17/25 Primary Care Physician: Dr. Pepe Osullivan MD Consultations 03/17/25 12:33 Consult: Gastroenterology Routine Consulting Provider: Seamus Gastroenteros[facility]is Reason for Consult: Colonic mass EMERGENT Consult: No Notified: Yes Date Notified: 03/17/25 Time Notified: 12:25 Method of Notification: Verbal Consult: General Surgery Routine Consulting Provider: Fadi Caceres Reason for Consult: Colonic mass EMERGENT Consult: No Notified: Yes Date Notified: 03/17/25 Time Notified: 12:25 Method of Notification: Verbal Reason For Visit: COLONIC MASS Diagnosis Discharge Diagnosis (1) Colonic mass: Status: Acute Code(s): K63.89 - Other specified diseases of intestine (2) Ischemic colitis: Status: Acute Code(s): K55.9 - Vascular disorder of intestine, unspecified Medications at Discharge Home Medications empagliflozin 10 mg tablet (Jardiance) 10 mg PO DAILY 03/17/25 insulin glargine 100 unit/mL (3 mL) subcutaneous pen (Lantus Solostar U-100 Insulin) 10 unit subcut QPM 03/17/25 amoxicillin 875 mg-potassium clavulanate 125 mg tablet 1 tab PO BID #16 tabs 03/19/25 Hospital Course Operations None Procedures Colonoscopy Summary of Care Provided Minutes Spent on Discharge: 42 Hospital Course: Per HPI: PHI CHA, is a 60 M who presents with 11-day history of constipation. Patient initially presented to [place] emergency department CT of the abdomen and pelvis was questionable for diverticulitis with an abscess versus sigmoid mass. Patient did receive IV antibiotics plan was for patient to have been admitted for subsequent eval patient however requested to be transferred to [facility]. Patient did report nausea but denied any vomiting. Reports passing some mucus per rectum. The surgeon on-call was notified prior to patient being admitted. Hospital Course: 1. Acute diverticulitis?60-year-old male presented to the hospital with significant constipation, he presented to [facility] where they performed a CT scan of his abdomen and pelvis that demonstrated diverticulitis versus sigmoid mass. Repeat CT scan here seem to show a more definitive sigmoid mass with obstruction so a colonoscopy was performed however it demonstrated inflammation and he was able to pass the scope through the obstruction. Today the abdominal pain is much improved and he is having bowel movements, albeit liquid, and is passing gas. Because of this improvement and the findings of the colonoscopy that did not demonstrate a colonic mass the possibility of discharge was discussed with him and he expressed understanding of the risks and benefits of going home and would like to try to go home today. I discussed the case with general surgery who was okay with it assuming he tolerated lunch which he did. He was given recommendations for a low residue diet and I did spend about 30 to 45 minutes discussing lifestyle modifications specifically dietary modifications for his diabetes and weight loss. The plan will be for him to follow-up with gastroenterology to schedule an outpatient colonoscopy in 3 to 4 months, and then he will follow-up with general surgery as well because he will still likely regardless of the pathology we will need his the sigmoid section resected however if he can get his blood sugar under control and he can potentially avoid an ostomy from his outpatient surgery. Also recommend follow-up with his PCP in 3 to 5 days. Will continue with Augmentin for another 8 days to complete treatment of his acute diverticulitis. 2. Type 2 diabetes?when extensive discussion on lifestyle modifications as well as dietary changes. Will not change his blood sugar medications at this time and will continue with his Lantus and his Jardiance. He will need close follow- up as he can become severely hypoglycemic if he does make significant lifestyle changes with these medications. Of note his A1c was 9.9 but he does admit to not following any kind of specific diet for the last 5 to 6 weeks because of work. Physical Exam Narrative General: Alert, Oriented x3, Cooperative, No apparent distress HEENT: Atraumatic, PERRLA, EOMI, Normocephalic Oral: Moist Mucosa Neck: Supple, No JVD Lungs: Clear to auscultation, Normal air movement, No rhonchi, No wheeze, No rales Cardiovascular: Regular rate, Regular Rhythm, Normal S1, Normal S2, No murmurs Abdomen: Soft, Non Tender, Non-Distended, No Hepato-splenomegaly Extremities: No edema, Capillary Refill Less than 3 Seconds Skin: No rashes, No breakdown Musculoskeletal: No Tenderness to Palpation of Joints or Extremities Neurological: No focal neurological deficits, Motor Exam 5/5 strength throughout, Sensory exam intact to light touch and pain Psych/Mental Status: Normal Affect, Appropriate Weight / BMI Weight Weight: 253 lb 15.56 oz Body Mass Index (BMI) 38.6 ABG / Lab / Microbiology Data 08/26/25 06:31 03/19/25 06:31 Laboratory: Laboratory Results - last 24 hr 03/18/25 17:25: POC Glucose 91 03/18/25 22:03: POC Glucose 117 H 03/19/25 06:31: WBC 9.8, RBC 4.57 L, Hgb 13.5, Hct 39.2 L, MCV 85.8, MCH 29.5, MCHC 34.4, RDW Std Deviation 36.9, RDW Coeff of Tre 11.8, Plt Count 330, MPV 9.1, Immature Gran % (Auto) 0.500, Neut % (Auto) 76.2 H, Lymph % (Auto) 12.8 L, [place] % (Auto) 7.2, Eos % (Auto) 2.8, Baso % (Auto) 0.5, Absolute Neuts (auto) 7.5, Absolute Lymphs (auto) 1.26, Nucleated RBC % 0, Sodium 137, Potassium 3.4, Chloride 102, Carbon Dioxide 22.8, Anion Gap 12, BUN 12, Creatinine 0.88, Estim Creat Clear Calc 108.63, Est GFR (MDRD) Non-Af 98, BUN/Creatinine Ratio 13.6, Glucose 98, Calcium 8.6 03/19/25 06:32: POC Glucose 104 D/C Instructions Call your doctor if you observe: Fever of 101 or Higher, Shortness of breath, Dizziness, Fainting spells, Swelling in the ankles, Chest pain and Increased palpitations (irregular heartbeat) DC O2, CPAP, BIPAP Needs Home O2 Discharge instructions: No Meaningful Use Info Meaningful Use Meaningful Use Diagnoses (Choose all that apply): None applicable Discharge Plan Admission Admit Date/Time: 03/17/25 12:22 Attending Provider: Henrry Tian Primary Care Provider: Pepe Osullivan Consulting Providers: Colby Romo; Sae Wilburn; Gwendolyn Cooper; Klarissa Butler; Caitie Sher; Fadi Caceres; Benitez Bianchi Instructions Patient Instructions: Diabetes Food Tips Ch, Diabetes Exercise Program Start, Diabetes Fitness Progress, Diabetes Carbs Fats Protein Additional Instructions / Restrictions: What are low-fiber foods? If your doctor tells you to follow a low-fiber diet, here are low-fiber foods you can eat and higher-fiber foods you should avoid. Remember to always choose foods that you would normally eat. Do not try any foods that caused you discomfort or allergic reactions in the past. If you are on a ?low-residue diet,? your food choices are even more restricted than those listed below. Talk with your cancer care team or dietitian if you have questions about certain foods or amounts. Meat, fish, poultry, and protein Eat: Tender cuts of meat Ground meat Tofu Fish and shellfish Smooth peanut butter Eggs Bake, broil, or poach meats, and use mild seasonings. Try preparing meats as stews, roasts, meatloaves, casseroles, sandwiches, and soups using ingredients on the approved lists. Scramble, poach, or boil eggs; or make omelets, souffl?s, custard, puddings, and casseroles, using ingredients noted below. You might want to ask your doctor, nurse, or dietitian about other foods may be OK for you to eat, and find out when you can go back to your normal diet. Avoid: All beans, nuts, peas, lentils, and legumes Processed meats, hot dogs, sausage, and cold cuts Tough meats with gristle Dairy: Milk and cheese Eat: Only in small to medium amounts and only if they don?t cause problems for you Milk, chocolate milk, buttermilk, and milk drinks Yogurt without seeds or granola Sour cream Cheese Cottage cheese Custard or pudding Ice cream or frozen desserts (without nuts) Cream sauces, soups, and casseroles You can use these items in desserts, snacks, or breads. Bread, cereals, and grains Eat: White breads, waffles, Lao toast, plain white rolls, or white bread toast Pretzels Plain pasta or noodles White rice Crackers, zwieback, cari, and matzoh (no cracked wheat or whole grains) Cereals without whole grains, added fiber, seeds, raisins, or other dried fruit Use white flour for baking and making sauces. Grains, such as white rice, Cream of Wheat, or grits, should be well-cooked. Include the above grains in casseroles, dumplings, souffl?s, cheese strata, kugels, and pudding. Avoid any food that contains: Brown or wild rice Whole grains, cracked grains, or whole wheat products Kasha (buckwheat) Cornbread or cornmeal Keegan crackers Bran Wheat germ Nuts Granola Coconut Dried fruit Seeds Vegetables and potatoes Eat: Tender, well-cooked fresh or canned vegetables without seeds, stems, or skins Cooked sweet or white potatoes without skins Strained vegetable juices without pulp or spices You can also eat these with cream sauces, or in soups, souffl?s, kugels, and casseroles. Avoid: All raw or steamed vegetables All types of beans Potatoes with skin Peas White Earth Cabbage, broccoli, cauliflower, [place] sprouts, and greens Sauerkraut Onions Fruits and desserts Eat: Soft canned or cooked fruit without seeds or skins (small amounts) Small amounts of well-ripened banana Strained or clear juices Small amounts of soft cantaloupe or honeydew melon Cookies and other desserts without whole grains, dried fruit, berries, nuts, or coconut Sherbet and popsicles Serving suggestions include gelatins, milk shakes, frozen desserts, puddings, tapioca, cakes, and sauces. Avoid: All raw or dried fruits Berries Prune juice, prunes, and raisins Other foods Eat: Mayonnaise and mild salad dressings Margarine, butter, cream, and oils in small amounts Plain gravies Plain bouillon and broth Ketchup and mild mustard Spices, cooked herbs, and salt Sugar, honey, and syrup Clear jellies Hard candy and marshmallows Plain chocolate Avoid: Marmalade Pickles, olives, relish, and horseradish Popcorn Potato chips Liquids Keep in mind that low-fiber foods cause fewer bowel movements and smaller stools. You may need to drink extra fluids to help prevent constipation while you are on a low-fiber diet. Drink plenty of water unless your doctor tells you otherwise, and use juices and milk as noted above. Discharge Orders/Prescriptions Prescriptions: New amoxicillin-pot clavulanate 875-125 mg tablet 1 tab PO BID Qty: 16 0RF Continued Jardiance 10 mg tablet 10 mg PO DAILY insulin glargine [Lantus Solostar U-100 Insulin] 100 unit/mL (3 mL) insulin pen 10 unit subcut QPM Referrals / Follow Up: Pepe Osullivan MD [Primary Care Provider] - Within 1 Week Fadi Caceres MD [Med Staff - Active Staff] - Within 2 Weeks Sae Wilburn DO [Med Staff - Active Staff] - Within 1 Month Disposition Disposition (needs filled in before D/C Order can be placed): Home, Self Care Charges/Coding Visit Charges Inpatient E&M: 39358 Disch Hosp >30min
== END 2025-03-19 15:37 | disposition home or self-care (01) | DRG 394 ==
PROVIDERS: Internal Medicine Gastroenterology; Surgery; Admitting Provider Internal Medicine; PCP Family Medicine; Visit Provider Family Medicine
PROC: 0DJD8ZZ Inspection of Lower Intestinal Tract, Via Natural or Artificial Opening Endoscopic (ICD-10-PCS; CPT 45378; principal; 2025-03-18 15:55)
DX: K55.9 Vascular disorder of intestine, unspecified (principal); K57.92 Diverticulitis of intestine, part unspecified, without perforation or abscess without bleeding; K56.690 Other partial intestinal obstruction; Z66 Do not resuscitate; E11.649 Type 2 diabetes mellitus with hypoglycemia without coma; I10 Essential (primary) hypertension; Z68.38 Body mass index [BMI] 38.0-38.9, adult; E66.01 Morbid (severe) obesity due to excess calories; K57.30 Diverticulosis of large intestine without perforation or abscess without bleeding; E78.5 Hyperlipidemia, unspecified; G47.33 Obstructive sleep apnea (adult) (pediatric); E87.6 Hypokalemia; Z79.4 Long term (current) use of insulin; Z79.84 Long term (current) use of oral hypoglycemic drugs; Z71.3 Dietary counseling and surveillance; E66.812 Obesity, class 2
CPT/HCPCS: 36415; 74176; 74177; 80048; 80053; 82962; 83036; 83735; 84100; 84443; 85025; 88305; 88331; 93005; 94668; 97802; 99252; Q9967; A4216; G0463

== ENCOUNTER 2025-04-08 10:21 | Day surgery (SDC) | payer OTHER, SELFPAY ==
--- NOTE | 2025-04-08 10:25 | PCM.PRE.AN2 ---
ASA Classification* ASA Classification ASA Classification: 2 Assessment & Plan Anesthesia* Anesthesia Assessment Anesthesia Assessment: Discussed sedation and/or anesthesia options, risks, benefits, and alternatives with patient/parents/legal guardian/POA. Questions invited. The patient/parents/legal guardian/POA seems to understand and agrees to proceed with anesthesia plan. Reviewed the physical assessment, medical history, allergy history and patient home medications list prior to surgery/procedure/anesthetic and documented any changes. Performed airway and anesthesia risk assessments. Anesthesia Type Anesthesia Type: MAC Anesthesia Focused Assessment* Airway Assessment Mouth opens: >3 cm Mallampati Score: II Labs Anesthesia Preop lab: CBC WBC 9.8 K/mm3 (4.4-11.0) 03/19/25 06:31 03/19/25 RBC 4.57 M/mm3 (4.6-6.2) L 03/19/25 06:31 03/19/25 Hgb 13.5 g/dL (13.0-16.5) 03/19/25 06:31 03/19/25 Hct 39.2 % (40-54) L 03/19/25 06:31 03/19/25 Plt Count 330 K/mm3 (150-450) 03/19/25 06:31 03/19/25 CHEMISTRY Potassium 3.4 mmol/L (3.3-5.1) 03/19/25 06:31 03/19/25 Sodium 137 mmol/L (133-145) 03/19/25 06:31 03/19/25 Magnesium 2.3 mg/dL (1.5-2.2) H 03/17/25 12:55 03/17/25 Phosphorus 2.9 mg/dL (2.7-4.5) 03/17/25 12:55 03/17/25 BUN 12 mg/dL (4-19) 03/19/25 06:31 03/19/25 Creatinine 0.88 mg/dL (0.70-1.20) 03/19/25 06:31 03/19/25 Glucose 98 mg/dL (70-99) 03/19/25 06:31 03/19/25 POC Glucose 104 mg/dL (74-106) 03/19/25 06:32 03/19/25 TSH 3.780 uIU/mL (0.300-4.200) 03/18/25 03:51 03/18/25 COAG Pre-Assessment Diagnosis/Proposed Procedure Planned Operative Procedure(s): COLONOSCOPY Anesthesia History 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 When Was Last Pacemaker Check QUESTION #4 FULL TEXT: You/Your Family Experience fever (hyperthermia) with Anesthesia Last Oral Intake Last Oral intake: Last Oral Intake NPO since Meds taken in AM with sips of water? Meds patient instructed to take am of surgery PONV PONV - top installer: PONV - top installer Female No 04/03/25 11:47 HX of Motion Sickness No 04/03/25 11:47 HX of N/V After Surgery No 04/03/25 11:47 Non-Smoker Yes 04/03/25 11:47 Duration of Surgery greater No 04/03/25 11:47 than 60 minutes Number of Risk Factors 1 04/03/25 11:47 PONV Score Low Risk 04/03/25 11:47 Height & Weight Height & Weight: Anesthesia: Height & Weight Height 5 ft 8 in 04/01/25 14:49 Respiratory Assessment Respiratory Assessment - top installer: Respiratory Tract Infection Hx - top installer Hx Respiratory Tract Infection No 04/03/25 11:47 STOP Sleep Apnea STOP Sleep Apnea - top installer: STOP Sleep Apnea - top installer Hx Hypertension Yes: PT TO STARTED BP 04/03/25 11:47 25 Hx Sleep Apnea Yes 04/03/25 11:47 CPAP Yes: WEARS OCCAS. 04/03/25 11:47 BIPAP No 04/03/25 11:47 Do you snore loudly (louder than talking or can be heard Do you often feel tired/ fatigued/ sleepy during daytime? Has anyone observed you stop breathing during sleep? STOP Results Positive 04/03/25 11:47 QUESTION #5 FULL TEXT : Do you snore loudly (louder than talking or can be heard through closed doors)? 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 Specify any problems Hx of Preganancy in last 3 N/A 04/03/25 11:47 Months Nurse Filling Out Transfusion VCHRISTIN 04/03/25 11:47 & Questions: Date: 04/03/25 04/03/25 11:47 Time: 11:49 04/03/25 11:47 Patient unable to answer at this time (ie. confused, unrespo /Reproduction History /Reproductive History - top installer: /Reproductive Hx- top installer Hx Now No 04/03/25 11:47 Gestational Age (in weeks): EDC: Hx Hx Para Hx Section SAB No 04/03/25 11:47 PFSH Medical History Wears glasses Alcohol use Insulin dependent diabetes mellitus History of diverticulitis Non-smoker CPAP (continuous positive airway pressure) dependence HTN (hypertension) Diabetes Sleep apnea Home Medications ?Medication ?Instructions ?Recorded ?Last Taken ?Type empagliflozin 10 mg tablet 10 mg PO DAILY 03/17/25 Unknown History (Jardiance) insulin glargine 100 unit/mL (3 10 unit subcut QPM 03/17/25 Unknown History mL) subcutaneous pen (Lantus Solostar U-100 Insulin) lisinopril 10 mg tablet 10 mg PO QDAY 03/28/25 Unknown History semaglutide 0.25 mg or 0.5 mg (2 0.25 mg subcut QWEEK 03/28/25 Unknown History mg/3 mL) subcutaneous pen injector (Ozempic) Allergy/AdvReac Type Severity Reaction Status Date / Time No Known Allergies Allergy Verified 04/03/25 11:37 Surgical History History of esophagogastroduodenoscopy (EGD) Hx of colonoscopy Social History Smoking Status: Never smoker alcohol intake: current details: social substance use type: does not use what type of physical activity do you participate in: none Review of Systems (Anesthesia) ROS Narrative System reviewed and no additional complaints, except as documented.
[2025-04-08] MEDS: Lactated Ringers 1,000 ML 15 ML IV (10:48)
[2025-04-08 10:49] VITALS: BP 126/86; PULSE 76; RESP 16; TEMP 36.4; O2SAT 96; BMI 37.6
--- NOTE | 2025-04-08 11:23 | PCM.HP.STD ---
HPI - General General Date of Admission: 04/08/25 Date of Service: 04/08/25 Chief Complaint: abnormal CT scan HPI Narrative PHI CHA, is a 60-year-old male, past medical history of poorly controlled diabetes, who presents from outside facility with diagnosis of left colon mass that is causing at least partial large bowel obstruction. Patient reports 1 previous colonoscopy approximately 10 years ago that was unremarkable and his findings. However, for the last 11 days he has not had a true bowel movement. CT imaging demonstrates 10 x 7 cm mass of the sigmoid colon with surrounding diverticular disease. Therefore, differential must include neoplastic versus diverticular disease with intramural abscess. Repeat CT imaging with p.o. contrast was obtained but phase was suboptimal since contrast is yet to reach the area of the mass lesion. I have discussed with radiology techs that we should plan to obtain delayed pictures. Patient is currently completing a bowel prep for planned colonoscopy tomorrow. I discussed findings of patient's workup thus far with him at some length. Hand drawings were used to illustrate relevant anatomy and I also reviewed with him his index CT imaging. I shared the possibility of laparoscopic assisted sigmoid colectomy versus LAR with primary colorectal anastomosis versus sigmoid colectomy with ostomy versus diverting ostomy. I shared that if he is unable to have much output with his colon prep and his A1c remains prohibitive then I would strongly recommend we proceed with a colostomy as his risks for anastomotic leak would be prohibitive. He confirmed understanding of this conversation. I have obtained a updated hemoglobin A1c to assess for his glucose control given that his previous value is now 15 months old. Will continue to follow and evaluate patient next tomorrow a.m. Please notify of any acute changes. CT 03/17/2025 10 cm lesion is located in the mid to proximal sigmoid colon. This seems to have a nearly apple-core appearance to it this is a barium enema finding indicating colon carcinoma. The thickened tumor produces a nearly occlusive passage to contrast, but there is contrast seen on both sides a vague suggestion of a string of contrast getting through, also findings associated with colon cancer No pathologically enlarged lymph nodes are identified. Questionable punctate lymph nodes in the mesentery COLON 03/18/2025 - inflammatory lesion - Preparation of the colon was poor. - Diverticulosis in the recto-sigmoid colon, in the sigmoid colon and in the descending colon. - Segmental severe inflammation was found in the recto-sigmoid colon, in the sigmoid colon and in the descending colon secondary to ischemic colitis. Biopsied. - Benign tumor in the sigmoid colon and in the descending colon. Biopsied. - Stool in the sigmoid colon, in the descending colon, at the splenic flexure, in the transverse colon, at the hepatic flexure, in the ascending colon and in the cecum. F/U w/ Dr. Caceres 03/28/2025 Patient is 60-year-old male who makes post hospital follow-up today after admission for sigmoid colon mass that appeared nearly obstructing, however, subsequent workup showed it to be nonobstructive and inflammatory in nature. Patient appears to be doing quite well today with no clinical symptoms of either abdominal pain or obstruction. He completed his prescribed antibiotic course and appears to be making significant strides with his diabetes control. I shared that I remain cautiously optimistic as I have had past patients where initial colonoscopic biopsies were benign but final surgical pathology still showed an underlying malignancy. I recommended follow-up CT imaging now that we are 2 weeks out from his prior studies and he has clinically shown some any improvements. Additionally he has pending follow-up with GI next week presumably to schedule follow-up colonoscopy. For the interim he is encouraged to try to increase his protein intake can liberalize his dietary intake. I also shared there may be some benefit him beginning a probiotic in addition to his activity having recently completed antibiotics. Lastly I encouraged him to continue his work with his fluid intake and diabetes control (I stated that the potential side effects of Ozempic appeared outweighed by the potential benefits of improved glycemic control as he increases his dietary intake). Plan: ? Repeat CT abdomen pelvis with p.o. and IV contrast ? Continue restricted diet but incorporate more protein ? Continued diligence with maintaining well-hydrated ? Continue to work on diabetes control ? Follow-up GI reevaluation and repeat colonoscopy (2) Colonic mass: Status: Acute Orders: Orders Abdomen/Pelvis WITH Contrast [facility]CHO [facility] Medical History Wears glasses Alcohol use Insulin dependent diabetes mellitus History of diverticulitis Non-smoker CPAP (continuous positive airway pressure) dependence HTN (hypertension) Diabetes Sleep apnea Home Medications ?Medication ?Instructions ?Recorded ?Last Taken ?Type empagliflozin 10 mg tablet 10 mg PO DAILY 03/17/25 04/04/25 History (Jardiance) insulin glargine 100 unit/mL (3 10 unit subcut QPM 03/17/25 Unknown History mL) subcutaneous pen (Lantus Solostar U-100 Insulin) lisinopril 10 mg tablet 10 mg PO QDAY 03/28/25 Unknown History semaglutide 0.25 mg or 0.5 mg (2 0.25 mg subcut QWEEK 03/28/25 Unknown History mg/3 mL) subcutaneous pen injector (Ozempic) Allergy/AdvReac Type Severity Reaction Status Date / Time No Known Allergies Allergy Verified 04/08/25 10:41 Surgical History History of esophagogastroduodenoscopy (EGD) Hx of colonoscopy Social History Smoking Status: Never smoker alcohol intake: current details: social substance use type: does not use what type of physical activity do you participate in: none ROS Constitutional Constitutional: Denies fatigue, fever(s), poor appetite, weight gain or weight loss Gastrointestinal Gastrointestinal: Denies belching, bloating, change in bowel habits, change in stool character, chewing difficulty, coffee ground emesis, constipation, cramping, diarrhea, dyspepsia, dysphagia, early satiety, excessive flatus, fecal incontinence, heartburn, hematemesis, hematochezia, hemorrhoids, loose stools, melena, nausea, odynophagia, rectal bleeding, tenesmus, vomiting or weight changes Vital Signs Vital Signs Vital Signs: 04/08/25 10:49 04/08/25 10:49 Temperature 97.5 F L Temperature Source Temporal Pulse Rate 76 Respiratory Rate 16 Respiratory Pattern Normal Blood Pressure 126/86 H Blood Pressure Mean 99 Blood Pressure Source Monitor Blood Pressure Position Sitting Blood Pressure Location Left Arm Pulse Ox 96 Oxygen Delivery Method Room Air Weight Weight: 247 lb 9.266 oz Body Mass Index (BMI) 37.6 Physical Exam Const alert, oriented x3, no apparent distress and healthy appearing General Appearance: cooperative GI normal to inspection, nondistended, normoactive bowel sounds, soft to palpation, non-tender and non-distended Percussion: normal to percussion Rectal Exam: deferred Assessment & Plan Assessment/Plan (1) Abnormal finding on GI tract imaging: (2) Constipation: (3) Ischemic colitis: PLAN: Assessment and Plan Assessment and Plan (1) Abnormal finding on GI tract imaging: Status: Acute (2) Constipation: Status: Acute Plan: Continuing with hydration and dietary modifications alongside MiraLax administration to alleviate constipation. Monitor bowel movements and reassess digestive function post-dietary change. Plan 60-year-old male with a history of severe constipation and recently diagnosed severe diverticulitis presenting with suspicion of a colonic mass. Initial presentations suggested constipation linked to motility issues, possibly exacerbated by lack of adequate solid diet intake and water consumption. Imaging raised concerns of a possible mass, meriting further investigation via colonoscopy and additional CT imaging to ensure comprehensive assessment for malignancy exclusion. The patient's stable vital signs and absence of acute abdominal pain post-discharge denote a favorable response to antibiotics and dietary modifications pending further evaluations. Patient Instructions: - Follow your restricted diet and gradually reintroduce solid foods based on comfort. - Drink enough water to help with bowel regularity. - Take MiraLax as directed to prevent constipation. - Attend all scheduled appointments, including the upcoming CT scan and colonoscopy. - SuTab (Jardiance 3d hold) - Cease Ozempic initiation until further notice, pending CT scan review. - Report any new symptoms, especially abdominal pain or changes in bowel habits, promptly.
--- NOTE | 2025-04-08 11:30 | COLBX_PTH ---
PATIENT: PHI CHA LOC: EN U#:[id number] AGE/SX: 60/M ROOM: RE04/08/[address]: Dr. Sae Wilburn DO : 1965 BED: DIS: 04/08/2025 SPEC #: [id number] RECD: 04/08/25 13:42 STATUS: MADDISON REShruti #: [id number] MICHAEL: 04/08/25 11:[address]: Sae Wilburn DEPT: SURGICAL PATHOLOGY RECD BY: Tavon Duarte ENTERED: 04/08/25 14:24 SP TYPE: COLON BX OTHR DR: Dr. Pepe Osullivan MD Tissues: A - Sigmoid colon biopsy Procedures: Surgery Specimen Level IV HEADER OPERATION: Colonoscopy with biopsy and tattoo PRE-OP DIAGNOSIS: Abnormal finding on GI tract imaging, constipation TISSUE SUBMITTED: A- Sigmoid mass biopsy MICROSCOPIC DIAGNOSIS A. Sigmoid colon, mass, biopsy: - Hyperplastic crypt change, focal hemorrhagic lamina propria, multiple fragments - see note. Note: If this biopsy represents only a portion of a larger mass lesion, the findings may not be real estate representative. Recommend correlation with clinical and endoscopic findings. MICROSCOPIC DESCRIPTION Slides are reviewed. GROSS DESCRIPTION A. Received in fixative is one container labeled with the patient's name and designated Sigmoid mass biopsy. The specimen consists of six irregular fragments of light rodrigues soft tissue that measure 0.3 to 0.4 cm. The specimen is totally submitted in one cassette. NC 04/08/2025 CPT:22612
[2025-04-08 12:10] VITALS: BP 112/74; BP 126/86; PULSE 74; RESP 16; TEMP 36.7; O2SAT 96
--- NOTE | 2025-04-08 12:13 | PCM.POST.ANE ---
Anesthesia: Postop Eval I Current Vital Signs Temperature: 98.1 F Pulse Rate: 81 Blood Pressure: 112/74 Respiratory Rate: 16 Pulse Ox: 98 Oxygen Delivery Method: Room Air Assessment Airway patent: Yes Spontaneous unlabored respirations: Yes Mental status: Awake and Calm nausea: No Vomiting: No Anesthesia Complication: No Fluid Hydration Crystalloid volume administer (ml): 600 Total IV fluid infused: 600 Progress Note Anesthesia document: Postop Eval 1 completed: Yes
[2025-04-08 12:14] VITALS: BP 112/74; PULSE 81; RESP 16; TEMP 36.7; O2SAT 98
--- NOTE | 2025-04-08 12:14 | OP.COLON_ITS ---
Patient Name: Azar Gonzalez Procedure Date: 04/08/2025 11:30 AM Date of : 1965 Age: 60 Procedure: Colonoscopy Indications: Hematochezia, Abnormal CT of the GI tract, Acute ischemic colitis Providers: Sae Wilburn DO Referring MD: Pepe Osullivan Medicines: Monitored Anesthesia Care Patient Profile: This is a 60 year old male. Refer to note in patient chart for documentation of history and physical. Last Colonoscopy: within the past 3 months. Complications: No immediate complications. Procedure: Pre-Anesthesia Assessment: - Prior to the procedure, a History and Physical was performed, and patient medications and allergies were reviewed. The patient is competent. The risks and benefits of the procedure and the sedation options and risks were discussed with the patient. All questions were answered and informed consent was obtained. Patient identification and proposed procedure were verified by the physician. Mental Status Examination: normal. Prophylactic Antibiotics: The patient does not require prophylactic antibiotics. Prior Anticoagulants: The patient has taken no anticoagulant or antiplatelet agents except for NSAID medication. ASA Grade Assessment: II - A patient with mild systemic disease. After reviewing the risks and benefits, the patient was deemed in satisfactory condition to undergo the procedure. The anesthesia plan was to use monitored anesthesia care (MAC). Immediately prior to administration of medications, the patient was re-assessed for adequacy to receive sedatives. The heart rate, respiratory rate, oxygen saturations, blood pressure, adequacy of pulmonary ventilation, and response to care were monitored throughout the procedure. The physical status of the patient was re-assessed after the procedure. After I obtained informed consent, the scope was passed under direct vision. Throughout the procedure, the patient's blood pressure, pulse, and oxygen saturations were monitored continuously. The Colonoscope was introduced through the anus and advanced to the cecum, identified by appendiceal orifice and ileocecal valve. The colonoscopy was performed without difficulty. The patient tolerated the procedure well. The quality of the bowel preparation was adequate. The ileocecal valve, appendiceal orifice, and rectum were photographed. Scope In: 11:47:23 AM Scope Withdrawal Time 0 hours 14 minutes 44 seconds Scope Out: 12:05:20 PM Total Procedure Duration Time 0 hours 17 minutes 57 seconds Findings: The perianal and digital rectal examinations were normal. Segmental moderate mucosal changes characterized by congestion (edema), erythema and granularity were found in the sigmoid colon. Biopsies were taken with a cold forceps for histology. Verification of patient identification for the specimen was done. Estimated blood loss was minimal. Area was tattooed with an injection of 3 mL of Saida ink. Multiple small and large-mouthed diverticula were found in the recto-sigmoid colon and sigmoid colon. The exam was otherwise without abnormality on direct and retroflexion views. Impression: - Segmental moderate mucosal changes were found in the sigmoid colon secondary to ischemic colitis. Biopsied. Tattooed. At the start of inflammation at 40 cm from the anal verge down to 15 cm to the anal verge - Diverticulosis in the recto-sigmoid colon and in the sigmoid colon. - The examination was otherwise normal on direct and retroflexion views. Recommendation: - Discharge patient to home. - Resume previous diet. - Continue present medications. - Await pathology results. - Repeat colonoscopy in 6 months for surveillance. Procedure Code(s): --- Professional --- 06634, Colonoscopy, flexible; with biopsy, single or multiple 22575, Colonoscopy, flexible; with directed submucosal injection(s), any substance CPT copyright 202 [employer]. All rights reserved. The codes documented in this report are preliminary and upon manager configuration review may be revised to meet current compliance requirements. Sae Wilburn DO 04/08/2025 12:13:59 PM This report has been signed electronically. Number of Addenda: 0 Note Initiated On: 04/08/2025 11:30 AM
--- NOTE | 2025-04-08 12:14 | OP.PROVAT_ITS ---
04/08/2025 Pepe Osullivan Re : Colonoscopy procedure for Azar Osullivan This procedure was performed on Tuesday, April 08, 2025. My impressions and recommendations are as follows: Impressions : - Segmental moderate mucosal changes were found in the sigmoid colon secondary to ischemic colitis. Biopsied. Tattooed. At the start of inflammation at 40 cm from the anal verge down to 15 cm to the anal verge - Diverticulosis in the recto-sigmoid colon and in the sigmoid colon. - The examination was otherwise normal on direct and retroflexion views. Recommendations : - Discharge patient to home. - Resume previous diet. - Continue present medications. - Await pathology results. - Repeat colonoscopy in 6 months for surveillance. My findings are described in the full procedure note, which is enclosed. If I can be of further assistance, please feel free to contact me at . Sincerely, Sae Wilburn, 04/08/2025 12:13:59 PM This report has been signed electronically.
[2025-04-08 12:15] VITALS: BP 124/103; BP 126/86; PULSE 70; RESP 16; O2SAT 97
[2025-04-08 12:20] VITALS: BP 113/80; BP 126/86; PULSE 78; RESP 16; TEMP 36.9; O2SAT 98
--- NOTE | 2025-04-08 12:21 | PCM.POSTANE2 ---
Anesthesia Postop Eval I Sum Postop Eval Completion status Anesthesia document: Postop Eval 1 completed: Yes Anesthesia Postop Eval I Summary Anesthesia Postop Eval I Summary: Anesthesia Postop Eval I: Assessment Summary Airway patent Yes 04/08/25 12:14 [email or web address] Spontaneous unlabored Yes 04/08/25 12:14 [email or web address] respirations Mental status Awake,Calm 04/08/25 12:14 [email or web address] nausea No 04/08/25 12:14 [email or web address] Vomiting No 04/08/25 12:14 [email or web address] Anesthesia Postop Eval I: Fluid Summary Crystalloid volume administer 600 04/08/25 12:14 [email or web address] (ml) Colloids volume administered ( ml) Blood Product volume administered (ml) Total IV fluid infused 600 04/08/25 12:14 [email or web address] Anesthesia Postop Eval I: Summary Notes Anesthesia Complication No 04/08/25 12:14 [email or web address] Anesthesia Complication Comment: Post-operative progress note Anesthesia: Postop Eval II Evaluation Mental status: Awake Pain Level: 0 nausea: No Vomiting: No
[2025-04-08 12:41] VITALS: BP 126/86
[2025-04-08 15:50] LABS: CRP 7.71 mg/L (0.0-3.0); LDH 160 U/L (87-241)
[2025-04-11 15:09] LABS: Albumin 3.4 g/dL (2.9-4.4); Carcinoembryonic Antigen 2139 2.2 ng/mL (0.0-4.7); Gamma Globulin 1.4 g/dL (0.4-1.8); Immunoglobulin A 230 mg/dL (61-437); Immunoglobulin G 1447 mg/dL (603-1613); Immunoglobulin M 106 mg/dL (20-172); PROEL- TOTAL PROTEIN 6.9 g/dL (6.0-8.5)
== END 2025-04-08 13:02 | disposition home or self-care (01) ==
LOC: EN 10:23 → AC 10:26
PROVIDERS: PCP Family Medicine; Referring Provider Family Medicine; Visit Provider Internal Medicine Gastroenterology
PROC: 0DJD8ZZ Inspection of Lower Intestinal Tract, Via Natural or Artificial Opening Endoscopic (ICD-10-PCS; CPT 45378; principal; 2025-04-08 11:25)
DX: K55.9 Vascular disorder of intestine, unspecified (principal); E11.9 Type 2 diabetes mellitus without complications; Z79.85 Long-term (current) use of injectable non-insulin antidiabetic drugs; K57.30 Diverticulosis of large intestine without perforation or abscess without bleeding; Z79.84 Long term (current) use of oral hypoglycemic drugs; I10 Essential (primary) hypertension; Z79.899 Other long term (current) drug therapy
CPT/HCPCS: 45380; 45381; 36415; 82378; 82784; 82962; 83615; 84165; 85652; 86140; 86334; 88305; A4648; J2405

== ENCOUNTER → 2025-04-11 | Outpatient (CLI) | payer OTHER, SELFPAY ==
--- OUTSIDE RECORDS SUMMARY | 2025-04-11 06:18 | XMS RPT_ITS | CCD ---
Author Organization [facility] Care Team Providers Care Manual Plate Filler Name Role Phone Juan R Osullivan MD Primary Care Provider Juan R Osullivan MD Primary Care Provider Podlogar FRENCH CORD BINDER.[employer]ORTS FITNESS AND WELLNESS DIRECTORIndia Unavailable Knoble FRENCH CORD BINDER.SPORTS FITNESS AND WELLNESS DIRECTORKarla Unavailable Knoble FRENCH CORD BINDER.SPORTS FITNESS AND WELLNESS DIRECTORKarla Unavailable Dr. Benitez Bianchi MD Admit Provider Unavailable Dr. Benitez Bianchi MD Other Provider Unavailable Abran SKINNER, Dr. Cantu Primary Care Provider Dr. Colby Romo MD Other Provider Dr. Sae Wilburn DO Other Provider Kenneth MANAGEMENT INTERNSHIP-CGwendolyn Other Provider Luke MANAGEMENT INTERNSHIP-CKlarissa Other Provider Caitie Lazaro Other Provider [phone] Fadi Caceres MD Other Provider Dr. Henrry Tian MD Attending Provider Dr. Benitez Bianchi MD Attending Provider Unavaila Dr. Fadi He MD Attending Provider Dr. Henrry Tian MD Other Provider Ele Riley PA-C Attending Provider Dr. Sae Wilburn DO Attending Provider JUAN R OSULLIVAN Primary Care Unava CHAVEZ Herbert Attending Unavail able Abran SKINNER, Dr. Cantu Referring Provider Luke TAFOYA-CKlarissa Attending Provider THAO OSULLIVANER B Primary Care Unavailab le PODLOGAR, IND[place] Referring Unavailable BURSLEY, CHRISTOPHER B Referring Unavailab le BURSLEY, CHRISTOPHER B Primary Care Unavailab le BURSLEY, CHRISTOPHER B Primary Care Unavailab le BURSLEY, CHRISTMARINEER B Attending Unavailab le BURSLEY, CHRISTOPHER B Primary Care Unavailab le HUERTA, INGRID Referring Unavailable BURSLEY, CHRISTOPHER B Primary Care Unavailab le HUERTA, INGRID Attending Unavailable Asmita SKINNER, Dr. Henrry Alejo Referring Provider Henrry Tian Attending Unavailable Benitez Bianchi Admitting Unavailable Demetrius, Colby Consulting Unavailable Bursley, Pepe Primary Care Unavailable Friend, Sae Consulting Unavailable Gwendolyn Cooper Consulting Unavailable Klarissa Butler Consulting Unavailable Caitie Sher Consulting Unavailable Fadi Caceres Consulting Unavailable Benitez Bianchi Consulting Unavailable Henrry Tian Consulting Unavailable Ele Moreno Attending Unavailable FriendSae Attending Unavailable Christineley, Pepe Referring Unavailable Bursley, Pepe Primary Care Unavailable Fadi Caceres Attending Unavailable Fadi Caceres Referring Unavailable Bursley, Pepe Primary Care Unavailable Henrry Tian Attending Unavailable Benitez Bianchi Admitting Unavailable Demetrius, Colby Consulting Unavailable Bursley, Pepe Primary Care Unavailable Friend, Sae Consulting Unavailable Gwendolyn Cooper Consulting Unavailable Klarissa Butler Consulting Unavailable Caitie Sher Consulting Unavailable Fadi Caceres Consulting Unavailable Benitez Bianchi Consulting Unavailable Henrry Tian Referring Unavailable Friend, Sae Attending Unavailable Klarissa Butler Attending Unavailable Bursley, Pepe Referring Unavailable Bursley, Pepe Primary Care Unavailable Fadi Caceres Attending Unavailable Bursley, Pepe Referring Unavailable Bursley, Pepe Primary Care Unavailable Benitez Bianchi Attending Unavailable Fadi Caceres Attending Unavailable Friend, Sae Consulting Unavailable Friend, Sae Attending Unavailable Bursley, Pepe Referring Unavailable Bursley, Pepe Primary Care Unavailable Allergies Allergy Classification Reported Allergen(s) Allergy Type Date of Onset Reaction(s) Facility Angiotensin 2 Receptor Blockers (ARB) (1 source) Losartan Drug Allergy 2 GI Upset [facility] Work Phone: (20 sources) Seasonal allergy; Translations: [SEASONAL ALLERGIES] Allergy to substance 7 Other: See Comments [facility] (20 sources) Losartan; Translations: [LOSARTAN] Drug Allergy 2 GI Upset [facility] Work Phone: (1 source) ALLERGIES NOT ON FILE; Translations: [ALLERGIES NOT ON FILE] Propensity to adverse reactions (disorder) [facility] (2 sources) Lisinopril; Translations: [LISINOPRIL] Drug Allergy 5 Nausea [facility] (4 sources) metFORMIN; Translations: [METFORMIN] Drug Allergy 5 Diarrhea [facility] (1 source) Lisinopril Drug Allergy 5 [facility] Repository Medications Current Medications Medication Drug Class(es) Dates Sig (Normalized) Sig (Original) amoxicillin 875 mg / clavulanate 125 mg oral tablet (7 sources) Penicillin-class Antibacterial Start: 03-19-2025 take 1 tablet by mouth every twelve hours amoxicillin-clav ulanate potassium (AUGMENTIN) 875-125 mg per tablet Take 1 tablet by mouth every 12 hours. 03/19/2025 Active Start: 03-19-2025 End: 03-28-2025 Amoxicillin-Pot Clavulanate 875-125 mg tablet Discontinued 1 {tbl} PO TWICE A DAY 16 March 19, 2025 12:00am March 28, 2025 10:12am atorvastatin 20 mg oral tablet (20 sources) [...] inge th daily at bedtime. For cholesterol. 12 hr cetirizine hydrochloride 5 mg / [...] (20 sources) Sodium-Glucose Cotransporter 2 Inhibitor Start: 03-05-20 End: 06-24-20 25 take 1 tablet by mouth once daily Empagliflozin (Jardiance) 10 mg tablet Active 10 mg PO DAILY March 17, 2025 12:00am Start: 12-23-2023 take 1 tablet by inge th once daily, then take 1 tablet by mouth once daily in the morning empagliflozin (JARDIANCE) 10 mg tablet Take 1 tablet by mouth once daily. Take 1 tablet once daily in the morning 30 tablet 1 12/23/2023 Active 3 ml insulin glargine 100 unt/ml pen injector (20 sources) Insulin Analog Start: 03-17-2025 Insulin Glargi ne (Lantus Solostar U-100 Insulin) 100 unit/mL (3 mL) insulin pen Active 10 U SC EVERY EVENING March 17, 2025 12:00am Start: 03-05-2024 End: 06-24-2025 inject 10 [IU] by subcutaneous injection once daily at bedtime insulin glargine (LANTUS SOLOSTAR U-100 INSULIN) 100 unit/mL (3 mL) Inject 10 Units subcutaneously daily at bedtime. 9 mL 03/26/2025 06/24/2025 Active Start: 12-23-2023 inject 10 [IU] by lamar bcutaneous injection once daily at bedtime insulin glargine (LANTUS SOLOSTAR U-100 INSULIN) 100 unit/mL (3 mL) Inject 10 Units subcutaneously daily at bedtime. 3 Each 0 12/23/2023 Active lisinopril 10 mg oral tablet (20 sources) Angiotensin Converting Enzyme Inhibitor Start: 03-28-2025 take 1 tablet by mouth once daily Lisinopril 10 mg tablet Active 10 mg PO daily March 28, 2025 12:00am Start: 12-05-2023 End: 03-26-2025 take 1 tablet by mouth once daily lisinopril (ZESTRIL) 10 mg tablet Take 1 tablet by mouth once daily. 30 tablet 1 03/26/2025 Active Start: 05-27-2022 End: 12-05-2023 take 1 tablet by mouth once daily lisinopril (ZESTRIL, PRINIVIL) 20 mg tablet Indications: Essential hypertension Take 1 tablet by mouth once daily. 30 tablet 2 05/27/2022 12/05/2023 Discontinued Comment on above: Take 1 tablet by inge once daily. predniSONE 10 mg oral tablet (1 source) [...] tab daily for 3 days with food. Semaglutide (3 sources) Start: 03-28-2025 Semaglutide (Ozempic) 0.25 mg or 0.5 mg (2 mg/3 mL) pen injector Active 0.25 mg SC EVERY WEEK March 28, 2025 12:00am Start: 03-28-2025 Semaglutide (O zempic) 0.25 mg or 0.5 mg (2 mg/3 mL) pen injector Active mg SC March 28, 2025 12:00am semaglutide (OZEMPIC) 0.25 mg or 0.5 mg (2 mg/3 mL) pen (6 sources) Start: 05-06-2025 inject 0.5 mg by subcutaneous injection every week semaglutide (OZEMPIC) 0.25 mg or 0.5 mg (2 mg/3 mL) pen Indications: Type 2 diabetes mellitus with hyperglycemia, with long-term current use of insulin (HCC) Inject 0.5 mg subcutaneously one time a week. Patient should start on May 06, 2025. 9 mL 05/06/2025 Active Start: 03-26-2025 End: 05-07-2025 inject 0.25 mg by subcutaneous injection every week, then inject 0.5 mg by subcutaneous injection every week semaglutide (OZEMPIC) 0.25 mg or 0.5 mg (2 mg/3 mL) pen Indications: Type 2 diabetes mellitus with hyperglycemia, with long-term current use of insulin (HCC) Inject 0.25 mg subcutaneously one time a week for 28 days, THEN 0.5 mg one time a week for 14 days. 3 mL 03/26/2025 05/07/2025 Active Completed/Discontinued Medications Medication Drug Class(es) Dates Sig (Normalized) Sig (Original) bisacodyl 5 mg delayed release oral tablet (3 sources) Stimulant Laxative Start: 03-15-2025 End: 03-26-2025 Bisacodyl (DULCOLAX) 5 mg tab Take 2 tablets by mouth as needed for constipation. 20 tablet 03/15/2025 03/26/2025 Discontinued famotidine 20 mg oral tablet (1 source) [...] (FLONASE) 50 mcg/actuation nasal spray Use 1 [place] in each nostril once daily. 0 05/27/2022 Discontinued Comment on above: Use 1 [place] in each nostril once daily. losartan potassium [...] by mo uth twice daily with meals. polyethylene glycol 3350 81786 mg powder for oral solution (3 sources) Osmotic Laxative Start: 03-15-2025 End: 03-26-2025 polyethylene glycol 3350 (MIRALAX) 17 gram/dose powder Dissolve dose in 4 - 8 ounces of liquid and take as directed. 116 g 03/15/2025 03/26/2025 Discontinued sildenafil 100 mg oral tablet (4 sources) Phosphodiesterase 5 Inhibitor Start: 11-26-2017 End: 06-22-2022 sildenafil (VIAGRA) 100 mg tablet Indications: Skin tag Take 1 tablet by mouth as needed (sexual intercourse). 6 tablet 2 11/26/2017 06/22/2022 Discontinued Comment on above: Take 1 tablet by inge th as needed (sexual intercourse). tadalafil 10 mg oral tablet (20 sources) Phosphodiesterase 5 Inhibitor Start: 06-22-2022 End: 03-26-2025 Tadalafil (CIALIS) 10 mg tablet Take 1 tablet by mouth as needed (Prior to sexual intercourse). 12 tablet 1 06/22/2022 03/26/2025 Discontinued (Course of therapy completed) Comment on above: Take 1 tablet by inge th as needed (Prior to sexual intercourse). Problems Active Problems Problem Classification Problem Date Documented Da te Episodic/Chronic Abdominal pain (2 sources) Unspecified abdominal pain; Translations: [Unspecified abdominal pain] Onset: 5 Episodic Allergic reactions (1 source) Irritant contact dermatitis; Translations: [Irritant contact dermatitis, unspecified cause] 04-12-2023 Episodic Diabetes mellitus with complications (10 sources) Hyperglycemia due to type 2 diabetes mellitus; Translations: [Type 2 diabetes mellitus with hyperglycemia] Onset: 1 03-06-2024 Chronic Diabetes mellitus without complication (20 sources) Type 2 diabetes mellitus without complication; Translations: [Type 2 diabetes mellitus without complications] Onset: 1 Chronic Diabetes mellitus without complication (20 sources) Prediabetes; Translations: [Prediabetes] 06-07-2017 Episodic Disorders of lipid metabolism (20 sources) Hyperlipidemia; Translations: [Hyperlipidemia, unspecified] Onset: 7 05-05-2017 Chronic Diverticulosis and diverticulitis (5 sources) Diverticulitis of intestine; Translations: [Diverticulitis of intestine, part unspecified, without perforation or abscess without bleeding] Onset: 5 03-26-2025 Chronic Esophageal disorders (20 sources) Gastroesophageal reflux disease; Translations: [Gastro-esophageal reflux disease without esophagitis] Onset: 5 05-05-2017 Chronic Essential hypertension (20 sources) Essential hypertension; Translations: [Essential (primary) hypertension] Onset: 2 Chronic Fluid and electrolyte disorders (2 sources) Hypokalemia; Translations: [Hypokalemia] Onset: 5 Episodic Immunizations and screening for infectious disease (2 sources) Needs influenza immunization; Translations: [Encounter for immunization] Episodic Intestinal obstruction without hernia (9 sources) Large bowel obstruction; Translations: [Unspecified intestinal obstruction, unspecified as to partial versus complete obstruction] Onset: 5 03-17-2025 Episodic Other and unspecified benign neoplasm (1 source) Apocrine cystadenoma; Translations: [Other benign neoplasm of skin, unspecified] Episodic Other gastrointestinal disorders (5 sources) Acute constipation; Translations: [Constipation, unspecified] 03-15-2025 Episodic Other gastrointestinal disorders (10 sources) Mass of colon; Translations: [Other specified diseases of intestine] 03-17-2025 Episodic Other gastrointestinal disorders (5 sources) Constipation, unspecified; Translations: [Constipation, unspecified] Onset: 5 Episodic Other gastrointestinal disorders (4 sources) Other specified diseases of intestine; Translations: [Other specified diseases of intestine] Onset: 5 Episodic Other gastrointestinal disorders (5 sources) Constipation; Translations: [Constipation, unspecified] 04-01-2025 Episodic Other lower respiratory disease (20 sources) [...] conditions (not mental disorders or infectious disease) (9 sources) Patient encounter status; Translations: [Encounter for screening for malignant neoplasm of prostate] Onset: 5 Episodic Other skin disorders (1 source) Skin tag; Translations: [Other hypertrophic disorders of the skin] Episodic Other upper respiratory disease (20 sources) Seasonal allergy; Translations: [Other seasonal allergic rhinitis] 05-05-2017 Chronic Peripheral and visceral atherosclerosis (15 sources) Ischemic colitis; Translations: [Vascular disorder of intestine, unspecified] Onset: 03-19-2025 Chronic Comment on above: Patient is 60-year-o ld male who makes post hospital follow-up today after admission for sigmoid colon mass that appeared nearly obstructing, however, subsequent workup showed it to be nonobstructive and inflammatory in nature. Patient appears to be doing quite well today with no clinical symptoms of either abdominal pain or obstruction. He completed his prescribed antibiotic course and appears to be making significant strides with his diabetes control. I shared that I remain cautiously optimistic as I have had past patients where initial colonoscopic biopsies were benign but final surgical pathology still showed an underlying malignancy. I recommended follow-up CT imaging now that we are 2 weeks out from his prior studies and he has clinically shown some any improvements. Additionally he has pending follow-up with GI next week presumably to schedule follow-up colonoscopy. For the interim he is encouraged to try to increase his protein intake can liberalize his dietary intake. I also shared there may be some benefit him beginning a probiotic in addition to his activity having recently completed antibiotics. Lastly I encouraged him to continue his work with his fluid intake and diabetes control (I stated that the potential side effects of Ozempic appeared outweighed by the potential benefits of improved glycemic control as he increases his dietary intake). Residual codes; unclassified (20 sources) Obstructive sleep apnea syndrome; Translations: [Obstructive sleep apnea (adult) (pediatric)] Chronic Residual codes; unclassified (1 source) Obstructive sleep apnea (adult) (pediatric); Translations: [SILVANO (obstructive sleep apnea)] Onset: Chronic Past or Other Problems Problem Classification Problem Date Documented Da te Episodic/Chronic Other aftercare (1 source) senior living (current) use of insulin; Translations: [Type 2 diabetes mellitus with hyperglycemia, with long-term current use of insulin (HCC)] Onset: 03-09-2021 Episodic Other skin disorders (20 sources) Hidradenitis suppurativa; Translations: [Hidradenitis suppurativa] Onset: 07-22-2021 07-22-2021 Episodic Results Test Name Value Interpretation Reference Range Facility Bedside Glucoseon 04-08-2025 FINGERSTICK GLU 117 mg/dL High 74-106 [facility] Comment on above: Result Comment: FATIMAH MADDENSTEPHEN OF PATIENT CARE PER NURSING PROTOCOL Performed By: #### L 501.080 #### [facility] [address] [place], [address] CRPon 04-08-2025 C-REACTIVE PROT 7.71 mg/L High 0.0-3.0 [facility] Comment on above: Performed By: #### L 501.6710, L504.2610, L101.9900 #### [facility] [address] [place], [address] Colonoscopy Reporton 025 Colonoscopy Report [facility] Medical Records Department [address] [place] [address] Colonoscopy Report MR#: [id number] Acct: [id number] Name: PHI GONZALEZ Rep #: [id number] : 1965 60 From: Sae Wilburn DO PCP: Dr. Pepe Osullivan MD Status:[facility] Patient Name: hPi Gonzalez Procedure Date: 04/08/2025 11:30 AM Date of : 1965 Age: 60 Procedure: Colonoscopy Indications: Hematochezia, Abnormal CT of the GI tract, Acute ischemic colitis Providers: Sae Wilburn DO Referring MD: Pepe Osullivan Medicines: Monitored Anesthesia Care Patient Profile: This is a 60 year old male. Refer to note in patient chart for documentation of history and physical. Last Colonoscopy: within the past 3 months. Complications: No immediate complications. Procedure: Pre-Anesthesia Assessment: - Prior to the procedure, a History and Physical was performed, and patient medications and allergies were reviewed. The patient is competent. The risks and benefits of the procedure and the sedation options and risks were discussed with the patient. All questions were answered and informed consent was obtained. Patient identification and proposed procedure were verified by the physician. Mental Status Examination: normal. Prophylactic Antibiotics: The patient does not require prophylactic antibiotics. Prior Anticoagulants: The patient has taken no anticoagulant or antiplatelet agents except for NSAID medication. ASA Grade Assessment: II - A patient with mild systemic disease. After reviewing the risks and benefits, the patient was deemed in satisfactory condition to undergo the procedure. The anesthesia plan was to use monitored anesthesia care (MAC). Immediately prior to administration of medications, the patient was re-assessed for adequacy to receive sedatives. The heart rate, respiratory rate, oxygen saturations, blood pressure, adequacy of pulmonary ventilation, and response to care were monitored throughout the procedure. The physical status of the patient was re-assessed after the procedure. After I obtained informed consent, the scope was passed under direct vision. Throughout the procedure, the patient's blood pressure, pulse, and oxygen saturations were monitored continuously. The Colonoscope was introduced through the anus and advanced to the cecum, identified by appendiceal orifice and ileocecal valve. The colonoscopy was performed without difficulty. The patient tolerated the procedure well. The quality of the bowel preparation was adequate. The ileocecal valve, appendiceal orifice, and rectum were photographed. Scope In: 11:47:23 AM Scope Withdrawal Time 0 hours 14 minutes 44 seconds Scope Out: 12:05:20 PM Total Procedure Duration Time 0 hours 17 minutes 57 seconds Findings: The perianal and digital rectal examinations were normal. Segmental moderate mucosal changes characterized by congestion (edema), erythema and granularity were found in the sigmoid colon. Biopsies were taken with a cold forceps for histology. Verification of patient identification for the specimen was done. Estimated blood loss was minimal. Area was tattooed with an injection of 3 mL of Saida ink. Multiple small and large-mouthed diverticula were found in the recto-sigmoid colon and sigmoid colon. The exam was otherwise without abnormality on direct and retroflexion views. Impression: - Segmental moderate mucosal changes were found in the sigmoid colon secondary to ischemic colitis. Biopsied. Tattooed. At the start of inflammation at 40 cm from the anal verge down to 15 cm to the anal verge - Diverticulosis in the recto-sigmoid colon and in the sigmoid colon. - The examination was otherwise normal on direct and retroflexion views. Recommendation: - Discharge patient to home. - Resume previous diet. - Continue present medications. - Await pathology results. - Repeat colonoscopy in 6 months for surveillance. Procedure Code(s): --- Professional --- 43576, Colonoscopy, flexible; with biopsy, single or multiple 01546, Colonoscopy, flexible; with directed submucosal injection(s), any substance CPT copyright 2021 [employer] [place] [employer]. All rights reserved. The codes documented in this report are preliminary and upon oil tester review may be revised to meet current compliance requirements. Sae Wilburn DO 04/08/2025 12:13:59 PM This report has been signed electronically. Number of Addenda: 0 Note Initiated On: 04/08/2025 11:30 AM 04/08/25 1214 Date Sae Wilburn DO Cosigner Signature: Date (if indicated) CC: Dr. Pepe Osullivan MD; Sae Wilburn DO Date Dictated: 04/08/25 1130 Date Transcribed: Bag Inspector: (more content not included)... Normal [facility] Erythrocyte Sed Rateon 04-08 SED RATE 28 mm/hr High 0-20 [facility] Comment on above: Performed By: #### L 501.6710, L504.2610, L101.9900 #### [facility] [address] [place], [place], [address] Gl[facility] at [facility] deOrdered By: Sae Wilburn on 04-08-2025 Glucose [Mass/Vol] 117 mg/dL High 74-106 [facility] Comment on above: MANAGEMENT OF PATIEN T CARE PER NURSING PROTOCOL LDHon 04-08-2025 LDH 160 U/L Normal 87-241 [facility] Comment on above: Order Comment: 1 Performed By: #### L 501.6710, L504.2610, L101.9900 #### [facility] [address] [place], [address] MR/OP.PROVAToashutosh 04-08-2025 MR/OP.[facility] Medical Records Department [address] [place] [address] Provation Physician Letter MR#: [id number] Acct: [id number] Name: PHI GONZALEZ Rep #: [id number] : 1965 60 From: Sae Wilburn DO PCP: Dr. Pepe Osullivan MD [facility] 04/08/2025 Pepe Osullivan Re : Colonoscopy procedure for Phi Brownr Abran This procedure was performed on Tuesday, April 08, 2025. My impressions and recommendations are as follows: Impressions : - Segmental moderate mucosal changes were found in the sigmoid colon secondary to ischemic colitis. Biopsied. Tattooed. At the start of inflammation at 40 cm from the anal verge down to 15 cm to the anal verge - Diverticulosis in the recto-sigmoid colon and in the sigmoid colon. - The examination was otherwise normal on direct and retroflexion views. Recommendations : - Discharge patient to home. - Resume previous diet. - Continue present medications. - Await pathology results. - Repeat colonoscopy in 6 months for surveillance. My findings are described in the full procedure note, which is enclosed. If I can be of further assistance, please feel free to contact me at . Sincerely, Sae Wilburn DO 04/08/2025 12:13:59 PM This report has been signed electronically. 04/08/25 1214 Date Sae Lott Signature: Date (if indicated) CC: Dr. Pepe Osullivan MD; Sae Wilburn DO Date Dictated: 04/08/25 1130 Date Transcribed: Bag Inspector: DEMI Signed [facility] MR/POSTOP.ANEon 04-08-2025 MR/POSTOP.ANE [facility] Medical Records Department [address] [place] [address] Anesthesia Postop Eval I 04/08/25 1213 MR#: [id number] Acct: [id number] Name: PHI GONZALEZ Rep #: [id number] : 1965 60 From: Madi Garza PCP: Dr. Pepe Osullivan MD Status:[facility] [place] Race: C Location: [place] [address] Anesthesia: Postop Eval I Current Vital Signs Temperature: 98.1 F Pulse Rate: 81 Blood Pressure: 112/74 Respiratory Rate: 16 Pulse Ox: 98 Oxygen Delivery Method: Room Air Assessment Airway patent: Yes Spontaneous unlabored respirations: Yes Mental status: Awake and Calm nausea: No Vomiting: No Anesthesia Complication: No Fluid Hydration Crystalloid volume administer (ml): 600 Total IV fluid infused: 600 Progress Note Anesthesia document: Postop Eval 1 completed: Yes 04/08/25 1214 Date Madi Kelley Signature: Date CC: Signed Normal [facility] MR/HLHNTANP6ev 04-08-2025 /POST[address] Medical Records Department [address] [place] [address] Anesthesia Postop Eval II 04/08/25 1221 MR#: [id number] Acct: [id number] Name: PHI GONZALEZ Rep #: [id number] : 1965 60 From: Asaf Keyes MD PCP: Dr. Pepe Osullivan MD Status:[facility] [place] Race: C Location: [place] [address] Anesthesia Postop Eval I Sum Postop Eval Completion status Anesthesia document: Postop Eval 1 completed: Yes Anesthesia Postop Eval I Summary Anesthesia Postop Eval I Summary: Anesthesia Postop Eval I: Assessment Summary Airway patent Yes 04/08/25 12:14 [email or web address] Spontaneous unlabored Yes 04/08/25 12:14 [email or web address] respirations Mental status Awake,Calm 04/08/25 12:14 [email or web address] nausea No 04/08/25 12:14 [email or web address] Vomiting No 04/08/25 12:14 [email or web address] Anesthesia Postop Eval I: Fluid Summary Crystalloid volume administer 600 04/08/25 12:14 [email or web address] (ml) Colloids volume administered ( ml) Blood Product volume administered (ml) Total IV fluid infused 600 04/08/25 12:14 [email or web address] Anesthesia Postop Eval I: Summary Notes Anesthesia Complication No 04/08/25 12:14 [email or web address] Anesthesia Complication Comment: Post-operative progress note Anesthesia: Postop Eval II Evaluation Mental status: Awake Pain Level: 0 nausea: No Vomiting: No 04/08/25 1221 Date Asaf Kelley Signature: Date CC: Signed Normal [facility] Gastroenterology Visit Repor ton 04-01-2025 Gastroenterology Visit Report [facility] [address] [place] [address] OFFICE VISIT Date of Service: 04/01/25 MR#: [id number] Acct: [id number] Name: PHI GONZALEZ Rep #: [id number] : 1965 Provider: ISABELLE pyle Age/Sex: 60/M Location: [facility] Status: Signed Intake Vital Signs 03/19/25 10:39 03/28/25 10:10 04/01/25 14:49 Height 5 ft 8 in 5 ft 8 in 5 ft 8 in Weight: 253 lb 15.56 oz 252 lb 4 oz 251 lb 4 oz BMI 38.3 38.2 BP 163/92 H 121/74 H Blood Pressure Location Rt brachial Position Sitting Respiration 18 16 Pulse 80 71 Pulse Source Monitor Temp 97.8 F 92.8 F L Temp Source Temporal Temporal Pulse Oximetry (%) 97 96 Oxygen Delivery Method room air room air Intake Visit Reasons: HOSP FU Chief Complaint: hospital f/u- colonic mass [employer] 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: No Accompanied by: Self Is patient in pain?: No Allergies No Known Allergies Allergy (Verified 04/01/25 14:44) Medications ???Medication ???Instructions ???Recorded ???Confirmed ???Type empagliflozin 10 mg tablet 10 mg PO DAILY 03/17/25 04/01/25 H istory (Jardiance) insulin glargine 100 unit/mL (3 10 unit subcut QPM 03/17/25 History mL) subcutaneous pen (Lantus Solostar U-100 Insulin) lisinopril 10 mg tablet 10 mg PO QDAY 03/28/25 04/01/25 Hi story semaglutide 0.25 mg or 0.5 mg (2 mg subcut 03/28/25 04/01/25 Histor y mg/3 mL) subcutaneous pen injector (Ozempic) PFSH Medical History HTN (hypertension) Diabetes Sleep apnea Social History Smoking Status: Never smoker alcohol intake: current details: social substance use type: does not use what type of physical activity do you participate in: none HPI HPI Chief Complaint: hospital f/u- colonic mass Details: Dr. Caceres Consult 03/17/2025 Colonic mass: PLAN: Patient is 60-year-old male, past medical history of poorly controlled diabetes, who presents from outside facility with diagnosis of left colon mass that is causing at least partial large bowel obstruction. Patient reports 1 previous colonoscopy approximately 10 years ago that was unremarkable and his findings. However, for the last 11 days he has not had a true bowel movement. CT imaging demonstrates 10 x 7 cm mass of the sigmoid colon with surrounding diverticular disease. Therefore, differential must include neoplastic versus diverticular disease with intramural abscess. Repeat CT imaging with p.o. contrast was obtained but phase was suboptimal since contrast is yet to reach the area of the mass lesion. I have discussed with radiology techs that we should plan to obtain delayed pictures. Patient is currently completing a bowel prep for planned colonoscopy tomorrow. I discussed findings of patient's workup thus far with him at some length. Hand drawings were used to illustrate relevant anatomy and I also reviewed with him his index CT imaging. I shared the possibility of laparoscopic assisted sigmoid colectomy versus LAR with primary colorectal anastomosis versus sigmoid colectomy with ostomy versus diverting ostomy. I shared that if he is unable to have much output with his colon prep and his A1c remains prohibitive then I would strongly recommend we proceed with a colostomy as his risks for anastomotic leak would be prohibitive. He confirmed understanding of this conversation. I have obtained a updated hemoglobin A1c to assess for his glucose control given that his previous value is now 15 months old. Will continue to follow and evaluate patient next tomorrow a.m. Please notify of any acute changes. CT 03/17/2025 10 cm lesion is located in the mid to proximal sigmoid colon. This seems to have a nearly apple- core appearance to it this is a barium enema finding indicating colon carcinoma. The thickened tumor produces a nearly occlusive passage to contrast, but there is contrast seen on both sides a vague suggestion of a string of contrast getting through, also findings associated with colon cancer No pathologically enlarged lymph nodes are identified. Questionable punctate lymph nodes in the mesentery COLON 03/18/2025 - inflammatory lesion - Preparation of the colon was poor. - Diverticulosis in the recto-sigmoid colon, in the sigmoid colon and in the descending colon. - Segmental severe inflammation was found in the recto-sigmoid colon, in the sigmoid colon and in the descending colon secondary to ischemic colitis. Biopsied. - Benign tumor in the sigmoid colon and in the descending colon. Biopsied. - Stool in the sigmoid colon, in the descending colon, at the splenic flexure, in the transverse colon, at the hepatic flexure, in the ascending colon and in the cecum. (more content not included)... Normal [facility] Surgery Visit Reporton 03-28 Surgery Visit Report [facility] [address] [place] [address] OFFICE VISIT Date of Service: 03/28/25 MR#: [id number] Acct: [id number] Name: PHI GONZALEZ Rep #: [id number] : 1965 Provider: Dr. Fadi urban MD Age/Sex: 60/M Location: [facility] Status: Signed Intake Vital Signs 03/19/25 10:39 03/28/25 10:10 Height 5 ft 8 in 5 ft 8 in Weight: 253 lb 15.56 oz 252 lb 4 oz BMI 38.3 BP 163/92 H Blood Pressure Location Rt brachial Position Sitting Respiration 18 Pulse 80 Pulse Source Monitor Temp 97.8 F Temp Source Temporal Pulse Oximetry (%) 97 Oxygen Delivery Method room air Intake Visit Reasons: HOSPITAL F/U - COLONIC MASS Chief Complaint: hospital f/u- colonic mass [facility] Medical History HTN (hypertension) Diabetes Sleep apnea Social History (Updated 03/28/25 @ 10:10 by Kamille Moore LPN) Smoking Status: Never smoker alcohol intake: never substance use type: does not use HPI HPI HPI: Patient is a 60-year-old male who makes follow-up after recent inpatient admission occasioned by finding of a 10 cm mass of the patient's sigmoid colon at outside hospital. Given his other clinical stability he was managed conservatively with dietary restriction, institution of empiric antibiotic therapy, and colonoscopy. Surprisingly, colonoscopy showed inflammatory changes only and patient resumed normal bowel function so he was granted discharge to home. He arrives to today's visit accompanied by his ex-. He shares that he has absolutely no abdominal pain at this point. He confirms he completed his prescribed antibiotic course last night without difficulty. He denies any difficulty with constipation but shares that he is apprehensive to eat solid food and details his diet since discharge from the hospital is including soup broth, crackers, Jell-O, yogurt, and cream of wheat. He describes his bowel habits through this dietary intake is occurring some 5-6 times per day and liquidy in character but with a brown color. Additionally shares that his water intake has increased significantly and he is now consuming 8-10 bottles of water daily. Concerning his blood sugars he provides a log that demonstrates all values to be less than 160 mg/dL. He notes that he has been taking Jardiance as previously prescribed and was also recently prescribed Ozempic by his PCP, Dr. Vazquez, but is yet to initiate this medication. There are some concerns about taking this medication and potential effects on slowing the GI. Lastly Mr. Gonzalez does report that he has experienced some weight loss with his dietary restrictions (he estimates approximately 13 pounds since discharge). ROS General General: Yes weight change; No appetite, fatigue, colon cancer, breast cancer or weakness HEENT HEENT: No difficulty swallowing, eye injury, eye surgery, swollen glands or hoarseness Endo Endocrine: Yes diabetes mellitus; No thyroid disease, thyroid cancer, Hair loss, heat intolerance or cold intolerance Skin Skin: No rash or changing moles Musc Musculoskeletal: No back problems, arthritis, rheumatoid arthritis, gout or joint pain Cardio Cardiovascular: No murmur, pacemaker, heart disease, atrial fibrillation, high blood pressure, heart attack, heart stent, palpitations, shortness of breath with exertion or chest pain Psych Psychiatric: No depression, anxiety or hearing voices Resp Respiratory: No shortness of breath, Yes sleep apnea, No cough, No COPD, No asthma, No emphysema and No wheezing Gastro Gastrointestinal: Yes abdominal pain, No nausea or vomiting, No diarrhea, Yes constipation, No blood in stool, No acid reflux, No hemorrhoids, No ulcers, No gallbladder problem and No black,tarry stools Rosas Hematologic: No blood thinners, No blood disorders, No bleeding, No anemia and No blood clots Neuro Neurologic: No numbness, No tingling and No weakness Exam Const General: cooperative and comfortable Orientation: alert, awake and oriented x3 Resp Effort Inspection: normal respiratory effort GI Other: Obese but appears visibly more slender, nondistended, soft, nontender to palpation despite deeper palpation lower abdominal quadrants. Assessment and Plan Assessment and Plan (1) Ischemic colitis: Status: Acute Comment: Patient is 60-year-old male who makes post hospital follow-up today after admission for sigmoid colon mass that appeared nearly obstructing, however, subsequent workup showed it to be nonobstructive and inflammatory in nature. Patient appears to be doing quite well today with no clinical symptoms of either abdominal pain or obstruction. He completed his prescribed antibiotic course and appears to be making significant stride (more content not included)... [facility] (PHARMN) ---- PHI GONZALEZ ([id number]) 1965 M Date Time Provider Department 03/27/25 TREVOR MARTINEZ PHARMN During your visit today, we recorded the following information about you: Trevor Martinez PSS 03/27/2025 2:04 PM Signed Telephoned the patient to schedule a new Primary Care pharmacy appt. Left a message. Trevor Martinez PSS 03/28/2025 10:08 AM Signed Telephoned the patient to schedule a new Primary Care pharmacy appt. Left a message. Made two attempts to contact the patient. Patient has not returned the call. If the patient returns a call, an appt will be scheduled. Encounter routed to the clinical pharmacist. Juan R Osullivan MD 04/05/2025 7:04 AM Signed Reviewed. Can we send a letter to remind him to schedule? Yusuf Adkins LPN 04/05/2025 9:04 AM Signed MC message sent to pt from pharmacy. Pt read MC message on 03/28/25 regarding need for appt without response. Allergies As of Date: 03/27/2025 Noted Allergy Reaction LOSARTAN 05/27/2022 8 - GI Upset METFORMIN 03/26/2025 6 - Diarrhea Comments: With IR and ER SEASONAL ALLERGIES 05/05/2017 14 - Other: See Comments Comments: Watery eyes, cough, and stuffy nose Date Reviewed: 03/26/2025 Reviewed by: Caitie Squires MA - Fully Assessed Reason for Visit: Primary Care Pharmacy Appt [Other] Prescriptions as of 04/05/2025 - amoxicillin-clavula casi potassium (AUGMENTIN) 875-125 mg per tablet Take 1 tablet by mouth every 12 hours. - semaglutide (OZEMPIC) 0.25 mg or 0.5 mg (2 mg/3 mL) pen Inject 0.25 mg subcutaneously one time a week for 28 days, THEN 0.5 mg one time a week for 14 days. - semaglutide (OZEMPIC) 0.25 mg or 0.5 mg (2 mg/3 mL) pen Inject 0.5 mg subcutaneously one time a week. Patient should start on May 06, 2025. - empagliflozin (JARDIANCE) 10 mg tablet Take 1 tablet by mouth once daily. Take 1 tablet once daily in the morning - insulin glargine (LANTUS SOLOSTAR U-100 INSULIN) 100 unit/mL (3 mL) Inject 10 Units subcutaneously daily at bedtime. - lisinopril (ZESTRIL) 10 mg tablet Take 1 tablet by mouth once daily. - insulin needles, DISPOSABLE, (PEN NEEDLE) 31 gauge x 5/16 Use one needle per dose. once per day. - Lancets Test blood sugar(s) 3 times daily. Dx: Type 2 DM - Uncontrolled E11.65 Insulin: Yes - blood sugar diagnostic (BLOOD GLUCOSE TEST) test strip Test blood sugar(s) 3 times daily. Dx: Type 2 DM - Uncontrolled E11.65 Insulin: Yes - atorvastatin (LIPITOR) 20 mg tablet Take 1 tablet by mouth daily at bedtime. For cholesterol. - CPAP Initiate Auto PAP @ 5-20 cm of water with humidification. Mask (per patient preference) optional chin strap (if indicated) , filters, tubing, humidifier and lifetime supplies. - cetirizine-pseudoep hedrine (ZYRTEC-D) 5-120 mg per tablet Take 1 tablet by mouth once daily. Problem List As Of Date 03/27/2025 Noted Resolved Morbid obesity with BMI of 40.0-44.9, adult (HC* GERD (gastroesophageal reflux disease) [K21.9] Seasonal allergies [J30.2] Snoring [R06.83] Hyperlipidemia [E78.5] Prediabetes [R73.03] SILVANO (obstructive sleep apnea) [G47.33] Erectile dysfunction [N52.9] 10/17/2017 Type 2 diabetes mellitus without complication, *03/09/2021 Hidradenitis suppurativa [L73.2] 07/22/2021 Essential hypertension [I10] 05/27/2022 Diverticulitis [K57.92] Encounter Status:Closed by TREVOR MARTINEZ on 03/28/25 Normal [facility] ALBUMIN/CREATININE RATIO, AMNA Lu 03-26-2025 Albumin DL <= 20 mg/L (U) [Mass/Vol] mg/dL Normal [facility] Comment on above: Order Comment: Speci men Type: URINE SPECIMENOrdering Facility: [facility] Address: [address] [place] [address] Performed By: #### U ACR ####[facility] LABCLIA [id number] [place] [address] [place] Albumin/Creatinine (U) [Mass ratio] <8 Normal <30 [facility] Comment on above: Order Comment: Speci men Type: URINE SPECIMENOrdering Facility: [facility] Address: [address] [place] [address] Result Comment: Adul t Male and Female Nephrotic Criteria: <30 mg/g is considered normal to mildly increased 30-300 mg/g is considered moderately increased >300 mg/g is considered severely increased KDIGO. (2013). KDIGO 2012 Clinical Practice Guideline for the Evaluation and Management of Chronic Kidney Disease. Official Journal of the International Society of Nephrology, 3(1), 1-150. Performed By: #### U ACR ####[facility] LABCLIA [id number] [place] [id number] [place] Creatinine (U) [Mass/Vol] 147.4 mg/dL Normal 20.0-300.0 [facility] Comment on above: Order Comment: Speci men Type: URINE SPECIMENOrdering Facility: [facility] Address: [address] [place] [address] Performed By: #### U ACR ####[facility] LABCLIA [id number] [place] [id number] [place] CBC W Auto Differential pane l (Bld)on 03-26-2025 Basophils (Bld) [#/Vol] 0.08 10*3/uL Normal <0.11 [facility] Comment on above: Order Comment: Speci men Type: BLOOD SPECIMENOrdering Facility: [facility] Address: [address] [place] [address] Performed By: #### 5 7021-8 ####[facility] LABCLIA [id number] [facility] [address], [place] [address] [place] Basophils/100 WBC (Bld) 1.1 % Normal [facility] Comment on above: Order Comment: Speci men Type: BLOOD SPECIMENOrdering Facility: [facility] Address: [address] [place] [address] Performed By: #### 5 7021-8 ####[facility] LABCLIA [id number] [facility] [address], [place] [address] [place] Differential cell count method Nom (Bld) Auto Normal [facility] Comment on above: Order Comment: Speci men Type: BLOOD SPECIMENOrdering Facility: [facility] Address: [address] [place] [address] Performed By: #### 5 7021-8 ####[facility] LABCLIA [id number] [facility] [address], [place] [address] [place] Eosinophils (Bld) [#/Vol] 0.21 10*3/uL Normal <0.46 [facility] Comment on above: Order Comment: Speci men Type: BLOOD SPECIMENOrdering Facility: [facility] Address: [address] [place] [address] Performed By: #### 5 7021-8 ####[facility] LABCLIA [id number] [address] [place] Eosinophils/100 WBC (Bld) 2.9 % Normal [facility] Comment on above: Order Comment: Speci men Type: BLOOD SPECIMENOrdering Facility: [facility] Address: [address] [place] [address] Performed By: #### 5 7021-8 ####[facility] LABCLIA [id number] [facility] [address], [place] [address] [place] Erythrocyte distribution width (RBC) [Ratio] 11.9 % Normal 11.5-15.0 [facility] Comment on above: Order Comment: Speci men Type: BLOOD SPECIMENOrdering Facility: [facility] Address: [address] [place] [address] Performed By: #### 5 7021-8 ####[facility] LABIA [id number] [place] [address] [place] Hematocrit (Bld) [Volume fraction] 42.2 % Normal 39.0-51.0 [facility] Comment on above: Order Comment: Speci men Type: BLOOD SPECIMENOrdering Facility: [facility] Address: [address] [place] [address] Performed By: #### 5 7021-8 ####[facility] LABIA [id number] [place] [address] [place] Hemoglobin (Bld) [Mass/Vol] 14.4 g/dL Normal 13.0-17.0 [facility] Comment on above: Order Comment: Speci men Type: BLOOD SPECIMENOrdering Facility: [facility] Address: [address] [place] [address] Performed By: #### 5 7021-8 ####[facility] LABIA [id number] [place] [address] [place] Immature granulocytes (Bld) [#/Vol] 0.03 10*3/uL Normal <0.10 [facility] Comment on above: Order Comment: Speci men Type: BLOOD SPECIMENOrdering Facility: [facility] Address: [address] [place] [address] Performed By: #### 5 7021-8 ####[facility] LABIA [id number] [place] [address] [place] Immature granulocytes/100 WBC (Bld) 0.4 % Normal [facility] Comment on above: Order Comment: Speci men Type: BLOOD SPECIMENOrdering Facility: [facility] Address: [address] [place] [address] Performed By: #### 5 7021-8 ####[facility] LABCLIA [id number] [place] [address] [place] Lymphocytes (Bld) [#/Vol] 1.80 10*3/uL Normal 1.00-4.00 [facility] Comment on above: Order Comment: Speci men Type: BLOOD SPECIMENOrdering Facility: [facility] Address: [address] [place] [address] Performed By: #### 5 7021-8 ####[facility] LABCLIA [id number] [place] [address] [place] Lymphocytes/100 WBC (Bld) 25.0 % Normal [facility] Comment on above: Order Comment: Speci men Type: BLOOD SPECIMENOrdering Facility: [facility] Address: [address] [place] [address] Performed By: #### 5 7021-8 ####[facility] LABIA [id number] [place] [address] [place] MCH (RBC) [Entitic mass] 29.6 pg Normal 26.0-34.0 [facility] Comment on above: Order Comment: Speci men Type: BLOOD SPECIMENOrdering Facility: [facility] Address: [address] [place] [address] Performed By: #### 5 7021-8 ####[facility] LABIA [id number] [place] [address] [place] MCHC (RBC) [Mass/Vol] 34.1 g/dL Normal 30.5-36.0 [facility] Comment on above: Order Comment: Speci men Type: BLOOD SPECIMENOrdering Facility: [facility] Address: [address] [place] [address] Performed By: #### 5 7021-8 ####[facility] LABIA [id number] [place] [address] [place] MCV (RBC) [Entitic vol] 86.7 fL Normal 80.0-100.0 [facility] Comment on above: Order Comment: Speci men Type: BLOOD SPECIMENOrdering Facility: [facility] Address: [address] [place] [address] Performed By: #### 5 7021-8 ####[facility] LABCLIA [id number] [facility] [place] [id number] [address] [place] Monocytes (Bld) [#/Vol] 0.46 10*3/uL Normal <0.87 [facility] Comment on above: Order Comment: Speci men Type: BLOOD SPECIMENOrdering Facility: [facility] Address: [address] [place] [address] Performed By: #### 5 7021-8 ####[facility] LABCLIA [id number] [address], [place] [address] [place] Monocytes/100 WBC (Bld) 6.4 % Normal [facility] Comment on above: Order Comment: Speci men Type: BLOOD SPECIMENOrdering Facility: [facility] Address: [address] [place] [address] Performed By: #### 5 7021-8 ####[facility] LABCLIA [id number] [facility] [address] [place] [address] [place] Neutrophils (Bld) [#/Vol] 4.63 10*3/uL Normal 1.45-7.50 [facility] Comment on above: Order Comment: Speci men Type: BLOOD SPECIMENOrdering Facility: [facility] Address: [address] [place] [address] Performed By: #### 5 7021-8 ####[facility] LABCLIA [id number] [address] [address] [place] Neutrophils/100 WBC (Bld) 64.2 % Normal [facility] Comment on above: Order Comment: Speci men Type: BLOOD SPECIMENOrdering Facility: [facility] Address: [address] [place] [address] Performed By: #### 5 7021-8 ####[facility] LABCLIA [id number] [address] [place] [address] [place] Nucleated RBC (Bld) [#/Vol] 0.04 10*3/uL High <0.01 [facility] Comment on above: Order Comment: Speci men Type: BLOOD SPECIMENOrdering Facility: [facility] Address: [address] [place] [address] Performed By: #### 5 7021-8 ####[facility] LABCLIA [id number] [address], [facility] [place] Nucleated RBC/100 WBC (Bld) [Ratio] 0.6 /100 WBC Normal [facility] Comment on above: Order Comment: Speci men Type: BLOOD SPECIMENOrdering Facility: [facility] Address: [address] [place] [address] Performed By: #### 5 7021-8 ####[facility] LABIA [id number] [address], [place] [address] [place] Platelet mean volume (Bld) [Entitic vol] 9.5 fL Normal 9.0-12.7 [facility] Comment on above: Order Comment: Speci men Type: BLOOD SPECIMENOrdering Facility: [facility] Address: [address] [place] [address] Performed By: #### 5 7021-8 ####[facility] LABCLIA [id number] [address] [place] [address] [place] Platelets (Bld) [#/Vol] 413 10*3/uL High 150-400 [facility] Comment on above: Order Comment: Speci men Type: BLOOD SPECIMENOrdering Facility: [facility] Address: [address] [place] [address] Performed By: #### 5 7021-8 ####[facility] LABCLIA [id number] [address] [place] [address] [place] RBC (Bld) [#/Vol] 4.87 10*6/uL Normal 4.20-6.00 [facility] Comment on above: Order Comment: Speci men Type: BLOOD SPECIMENOrdering Facility: [facility] Address: [address] [place] [address] Performed By: #### 5 7021-8 ####[facility] LABCLIA [id number] [address] [place] WBC (Bld) [#/Vol] 7.21 10*3/uL Normal 3.70-11.00 [facility] Comment on above: Order Comment: Speci men Type: BLOOD SPECIMENOrdering Facility: [facility] Address: [address] [place] [address] Performed By: #### 5 7021-8 ####[facility] LABCLIA [id number] [address] OF [facility] CNOVon 03-26-2025 CNOV Office Visit (FAMPWS) ---- PHI GONZALEZ ([id number]) 1965 M Date Time Provider Department 03/26/25 2:20 PM JUAN R OSULLIVAN FAMPWS During your visit today, we recorded the following information about you: Pulse Blood pressure Weight Height 79/minute 134/94 115.1 kg 1.735 m Juan R Osullivan MD 03/26/2025 3:25 PM Signed Chief Complaint Patient presents with: Transition Of Care Recording using ambient 3KeyIt software for draft documentation of the visit was discussed with the patient/authorized medical representative; all questions welcomed and answered. Patient/authorized medical representative agreed to proceed HPI Phi Gonzalez is a 60 year old male who presents here today for Hospital Discharge Follow up. Colonic Mass and Ischemic Colitis: - Derik Gonzalez was hospitalized at [facility] from 03/17 to 03/19 for colonic mass and ischemic colitis. - Initial presentation included 11-day history of constipation; seen at [place] [facility] where CT A/P was questionable for diverticulitis with abscess vs. sigmoid mass. - Received IV antibiotics and was transferred to [facility] at Derik's request. - Repeat CT scan at [place] showed a definitive sigmoid mass with obstruction; colonoscopy performed showed inflammation and was able to pass the scope through the obstruction. - Abdominal pain improved after colonoscopy; able to have bowel movements, though they were liquid stools, and was passing gas. - Discharged on a low-residue diet and Augmentin for 8 days; told to follow up with gastroenterology to schedule an outpatient colonoscopy in 3-4 months and to follow up with general surgery. - Reports fear of eating food, leading to a diet of bone chicken broth, Jell-O, cream of wheat, [place] yogurt, Activia yogurt, and minimal solid food intake. - Denies abdominal pain, fevers, chills, nausea, or emesis. - Stools have been loose but brown in color. Diabetes Mellitus: - Uncontrolled during hospitalization; A1c was 9.9. - Currently on Jardiance and Lantus; unable to tolerate metformin. - Reports poor dietary habits and lack of exercise contributing to uncontrolled diabetes. - Recent blood glucose readings have been in the 120s-150s, but were higher (190s-224) before hospitalization when diet was poor. - Denies family history of thyroid cancer or personal history of pancreatitis. TRANSITION CARE MANAGEMENT (TCM) INITIAL CONTACT [facility] Provider Action/FYI: Initial contact with patient post discharge, spoke to patient. Patient identified by name and . TRANSITION CARE MANAGEMENT INITIAL OUTREACH DOCUMENTATION: No data to display SUMMARY: -Pt discharged from [facility] on 03/19/25. -Admitted for: Colonic mass Do you have a hospital follow up appointment with your PCP? Appointment on 03/26/[address] Osullivan. Yes. Remind patient of appointment date, time, and location. If not within 14 calendar days of discharge - please reschedule accordingly. MEDICATIONS: Many patients have questions or concerns about their medications once they are home. Were you prescribed any new medications? Yes. Amoxicillin 875-125 mg 1 PO BID Were you told to hold any medications? No Were any of your medications discontinued? No Do you have any questions about getting or taking your medications? No Your discharge instructions/After visit Summary (AVS) are important in guiding you through the recovery process. Is there anything I might help you understand? No Do you have all the necessary equipment and supplies at home? Yes Medical records from recent hospitalization: Placed for provider to review Past medical history, appointments, medications, allergies reviewed. Previous Medical History PAST MEDICAL HISTORY Diagnosis Date Coronary artery disease Diverticulitis Erectile dysfunction Essential hypertension GERD (gastroesophageal reflux disease) Hyperlipidemia Morbid obesity with BMI of 40.0-44.9, adult ([facility]) SILVANO (obstructive sleep apnea) severe Seasonal allergies Snoring Type 2 diabetes mellitus without complication, without long-term current use of insulin ([facility]) 03/09/2021 Previous Surgical History PAST SURGICAL HISTORY Procedure Laterality Date COLONOSCOPY FLX DX W/COLLJ SPEC WHEN PFRMD 09/22/2017 Colonoscopy ENDOSCOPIC EXCISION N-P MASS 11/10/2017 excision cyst mass colon Family History FAMILY HISTORY Adopted: Yes Family history unknown: Yes Patient Allergies ALLERGIES Allergen Reactions Losartan GI Upset Metformin Diarrhea With IR and ER Seasonal Allergies Other: See Comments Watery eyes, cough, and stuffy nose Current Medications Current Outpatient Medications on File Prior to Visit Medication Sig amoxicillin-clavula casi potassium (AUGMENTIN) 875-125 mg per tablet Take 1 tablet by mouth every 12 hours. (more content not included)... Normal [facility] Comprehensive metabolic 2000 panelon 03-26-2025 Albumin [Mass/Vol] 3.8 g/dL Low 3.9-4.[address] [facility] Comment on above: Order Comment: Speci men Type: BLOOD SPECIMENOrdering Facility: [facility] Address: [address] [place] [address] Performed By: #### 2 4323-8, LIPNF ####[facility] LABCLIA [id number] [place] [address] [place] ALP [Catalytic activity/Vol] 55 U/L Normal 38-113 [facility] Comment on above: Order Comment: Speci men Type: BLOOD SPECIMENOrdering Facility: [facility] Address: [address] [place] [address] Performed By: #### 2 4323-8, LIPNF ####[facility] LABCLIA [id number] [place] [address] [place] ALT [Catalytic activity/Vol] 20 U/L Normal 10-54 [facility] Comment on above: Order Comment: Speci men Type: BLOOD SPECIMENOrdering Facility: [facility] Address: [address] [place] [address] Performed By: #### 2 4323-8, LIPNF ####[facility] LABCLIA [id number] [place] [address] [place] Anion gap [Moles/Vol] 12 mmol/L Normal 8-15 [facility] Comment on above: Order Comment: Speci men Type: BLOOD SPECIMENOrdering Facility: [facility] Address: [address] [place] [address] Performed By: #### 2 4323-8, LIPNF ####[facility] LABCLIA [id number] [place] [address] [place] AST [Catalytic activity/Vol] 22 U/L Normal 14-40 [facility] Comment on above: Order Comment: Speci men Type: BLOOD SPECIMENOrdering Facility: [facility] Address: [address] [place] [address] Performed By: #### 2 4323-8, LIPNF ####[facility] LABCLIA [id number] [place] [address] [place] Bilirubin [Mass/Vol] 0.3 mg/dL Normal 0.2-1.3 [facility] Comment on above: Order Comment: Speci men Type: BLOOD SPECIMENOrdering Facility: [facility] Address: [address] [place] [address] Performed By: #### 2 4323-8, LIPNF ####[facility] LABCLIA [id number] [place] [address] [place] Calcium [Mass/Vol] 9.4 mg/dL Normal 8.5-10.[address] [facility] Comment on above: Order Comment: Speci men Type: BLOOD SPECIMENOrdering Facility: [facility] Address: [address] [place] [address] Performed By: #### 2 4323-8, LIPNF ####[facility] LABCLIA [id number] [facility] [place] [id number] [place] Chloride [Moles/Vol] 101 mmol/L Normal 98-107 [facility] Comment on above: Order Comment: Speci men Type: BLOOD SPECIMENOrdering Facility: [facility] Address: [address] [place] [address] Performed By: #### 2 4323-8, LIPNF ####[facility] LABCLIA [id number] [place] [address] [place] CO2 [Moles/Vol] 24 mmol/L Normal 22-30 [facility] Comment on above: Order Comment: Speci men Type: BLOOD SPECIMENOrdering Facility: [facility] Address: [address] [place], [place] [address] Performed By: #### 2 4323-8, LIPNF ####[facility] LABCLIA [id number] [place] [address] [place] Creatinine [Mass/Vol] 1.10 mg/dL Normal 0.73-1.22 [facility] Comment on above: Order Comment: Speci men Type: BLOOD SPECIMENOrdering Facility: [facility] Address: [address] [place] [address] Performed By: #### 2 4323-8, LIPNF ####[facility] LABCLIA [id number] [place] [id number] [place] eGFRcr SerPlBld CKD-EPI 2020 76 mL/min/1.73m??? Normal >=60 [facility] Comment on above: Order Comment: Speci men Type: BLOOD SPECIMENOrdering Facility: [facility] Address: [address] [place] [address] Result Comment: Angelita mated Glomerular Filtration Rate (eGFR) is calculated using the 2020 CKD-EPI creatinine equation. This equation utilizes serum creatinine, sex, and age as parameters. The creatinine assay has traceable calibration to isotope dilution-mass spectrometry. Refer to KDIGO guidelines for clinical interpretation. In patients with unstable renal function, e.g. those with acute kidney injury, the eGFR may not accurately reflect actual GFR. Performed By: #### 2 4323-8, LIPNF ####[facility] LABIA [id number] [place] [address] [place] Glucose [Mass/Vol] 125 mg/dL High 74-[address] [facility] Comment on above: Order Comment: Speci men Type: BLOOD SPECIMENOrdering Facility: [facility] Address: [address] [place] [address] Result Comment: The [place] Diabetes Association (ADA) provides guidance for cutoff values for fasting glucose and random glucose. The ADA defines fasting as no caloric intake for at least 8 hours. Fasting plasma glucose results between 100 to 125 mg/dL indicate increased risk for diabetes (prediabetes). Fasting plasma glucose results greater than or equal to 126 mg/dL meet the criteria for diagnosis of diabetes. In the absence of unequivocal hyperglycemia, results should be confirmed by repeat testing. In a patient with classic symptoms of hyperglycemia or hyperglycemic crisis, random plasma glucose results greater than or equal to 200 mg/dL meet the criteria for diagnosis of diabetes. Reference: Standards of Medical Care in Diabetes 2016, [place] Diabetes Association. Diabetes Care. 2016.39(Suppl 1). Performed By: #### 2 4323-8, LIPNF ####[facility] LABIA [id number] [place] [address] [place] Potassium [Moles/Vol] 4.2 mmol/L Normal 3.7-5.1 [facility] Comment on above: Order Comment: Speci men Type: BLOOD SPECIMENOrdering Facility: [facility] Address: [address] [place] [address] Performed By: #### 2 4323-8, LIPNF ####[facility] LABCLIA [id number] [address] [address] [place] Protein [Mass/Vol] 7.4 g/dL Normal 6.3-8.[address] [facility] Comment on above: Order Comment: Speci men Type: BLOOD SPECIMENOrdering Facility: [facility] Address: [address] [place] [address] Performed By: #### 2 4323-8, LIPNF ####[facility] LABCLIA [id number] [address] [place] [address] [place] Sodium [Moles/Vol] 137 mmol/L Normal 136-[address] [facility] Comment on above: Order Comment: Speci men Type: BLOOD SPECIMENOrdering Facility: [facility] Address: [address] [place] [address] Performed By: #### 2 4323-8, LIPNF ####[facility] LABCLIA [id number] [place] [address] [place] Urea nitrogen [Mass/Vol] 13 mg/dL Normal 9-24 [facility] Comment on above: Order Comment: Speci men Type: BLOOD SPECIMENOrdering Facility: [facility] Address: [address] [place] [address] Performed By: #### 2 4323-8, LIPNF ####[facility] LABCLIA [id number] [place] [id number] [place] LIPID PANEL, NONFASTINGon Cholesterol [Mass/Vol] 189 mg/dL Normal <200 [facility] Comment on above: Order Comment: Speci men Type: BLOOD SPECIMENOrdering Facility: [facility] Address: [address] [place] [address] Result Comment: <200 mg/dL, Desirable 200-239 mg/dL, Borderline high >239 mg/dL, High Performed By: #### 2 4323-8, LIPNF ####[facility] LABCLIA [id number] [address] HDL CHOLESTEROL, NF 28 mg/dL Low >39 [facility] Comment on above: Order Comment: Ghassansidra serna Type: BLOOD SPECIMENOrdering Facility: [facility] Address: [address] [place] [address] Result Comment: 40-5 9 mg/dL, Acceptable >59 mg/dL, High: Negative risk factor for coronary heart disease <40 mg/dL, Low: Positive risk factor for coronary heart disease Performed By: #### 2 4323-8, LIPNF ####[facility] LABCLIA [id number] [address] LDL CHOLESTEROL CALCULATED, NF 125 mg/dL High <100 [facility] Comment on above: Order Comment: Cody daphne Type: BLOOD SPECIMENOrdering Facility: [facility] Address: [address] [place] [address] Result Comment: <100 mg/dL, Optimal 100-129 mg/dL, Near optimal/above optimal 130-159 mg/dL, Borderline high 160-189 mg/dL, High >189 mg/dL, Very high Secondary prevention optimal LDL Cholesterol levels are recommended to be <70 mg/dL LDL cholesterol is calculated using the Heller-NIH equation. Performed By: #### 2 4323-8, LIPNF ####[facility] LABCLIA [id number] [address] LDL/HDL RATIO, NF 4.46 mg/dL High <2.54 [facility] Comment on above: Order Comment: Ghassansidra serna Type: BLOOD SPECIMENOrdering Facility: [facility] Address: [address] [place] [address] Result Comment: Kapil kuhn: 1. National Cholesterol Education Program ATP III Guideline At-A-Glance Quick Desk Reference: National Heart, Lung, and Blood [place]. National Institutes of Health. 2001: NIH Publication No. 01-3305. 2. An International Atherosclerosis Society position paper: global recommendations for the management of dyslipidemia: executive summary, Atherosclerosis. 2014: 232(2):410-413. Performed By: #### 2 4323-8, LIPNF ####[facility] LABCLIA [id number] [place] [address] [place] NON HDL CHOL, NF 161 mg/dL High <130 [facility] Comment on above: Order Comment: Speci men Type: BLOOD SPECIMENOrdering Facility: [facility] Address: [address] [place] [address] Result Comment: <130 mg/dL, Optimal 130-159 mg/dL, Near optimal/above optimal 160-189 mg/dL, Borderline high 190-219 mg/dL, High >219 mg/dL, Very high Secondary prevention optimal non HDL Cholesterol levels are recommended to be <100 mg/dL Performed By: #### 2 4323-8, LIPNF ####[facility] LABCLIA [id number] [place] [address] [place] T CHOL/HDL RATIO NF 6.75 mg/dL High <5.10 [facility] Comment on above: Order Comment: Speci men Type: BLOOD SPECIMENOrdering Facility: [facility] Address: [address] [place] [address] Performed By: #### 2 4323-8, LIPNF ####[facility] LABCLIA [id number] [place] [address] [place] TRIGLYCERIDES, NF 202 mg/dL High <150 [facility] Comment on above: Order Comment: Speci men Type: BLOOD SPECIMENOrdering Facility: [facility] Address: [address] [place] [id number] Result Comment: <150 mg/dL, Normal 150-199 mg/dL, Borderline high 200-499 mg/dL, High >499 mg/dL, Very high Performed By: #### 2 4323-8, LIPNF ####[facility] LABCLIA [id number] [place] [id number] [place] VLDL CHOLESTEROL, NF 35 mg/dL High <30 [facility] Comment on above: Order Comment: Speci men Type: BLOOD SPECIMENOrdering Facility: [facility] Address: [address] [place] [address] Performed By: #### 2 4323-8, TISHA ####[facility] LABCLIA [id number] [address] MCKEON [id number] [place] [address] [place] [facility] CNPNon 03-21-2025 CNPN Telephone (FAMPWS) ---- PHI GONZALEZ ([id number]) 1965 M Date Time Provider Department 03/21/[facility] your visit today, we recorded the following information about you: Caitie Squires MA 03/21/2025 2:13 PM Signed TRANSITION CARE MANAGEMENT (TCM) INITIAL CONTACT [facility] Provider Action/FYI: Initial contact with patient post discharge, spoke to patient. Patient identified by name and . TRANSITION CARE MANAGEMENT INITIAL OUTREACH DOCUMENTATION: No data to display SUMMARY: -Pt discharged from [facility] on 03/19/25. -Admitted for: Colonic mass Do you have a hospital follow up appointment with your PCP? Appointment on 03/26/[address] Osullivan. Yes. Remind patient of appointment date, time, and location. If not within 14 calendar days of discharge - please reschedule accordingly. MEDICATIONS: Many patients have questions or concerns about their medications once they are home. Were you prescribed any new medications? Yes. Amoxicillin 875-125 mg 1 PO BID Were you told to hold any medications? No Were any of your medications discontinued? No Do you have any questions about getting or taking your medications? No Your discharge instructions/After visit Summary (AVS) are important in guiding you through the recovery process. Is there anything I might help you understand? No Do you have all the necessary equipment and supplies at home? Yes Medical records from recent hospitalization: Placed for provider to review Allergies As of Date: 03/21/2025 Noted Allergy Reaction LOSARTAN 05/27/2022 8 - GI Upset SEASONAL ALLERGIES 05/05/2017 14 - Other: See Comments Comments: Watery eyes, cough, and stuffy nose Date Reviewed: 03/15/2025 Reviewed by: Janelle Knowles MA - Fully Assessed Reason for Visit: Transition Of Care [4074] Prescriptions as of 03/21/2025 - polyethylene glycol 3350 (MIRALAX) 17 gram/dose powder Dissolve dose in 4 - 8 ounces of liquid and take as directed. - Bisacodyl (DULCOLAX) 5 mg tab Take 2 tablets by mouth as needed for constipation. - insulin needles, DISPOSABLE, (PEN NEEDLE) 31 [...] filters, tubing, humidifier and lifetime supplies. - cetirizine-pseudoep hedrine (ZYRTEC-D) 5-120 mg per tablet Take 1 tablet by mouth once daily. Problem List As Of Date 03/21/2025 Noted Resolved Morbid obesity with BMI of 40.0-44.9, adult (HC* GERD (gastroesophageal reflux disease) [K21.9] Seasonal allergies [J30.2] Snoring [R06.83] Hyperlipidemia [E78.5] Prediabetes [R73.03] SILVANO (obstructive sleep apnea) [G47.33] Erectile dysfunction [N52.9] 10/17/2017 Type 2 diabetes mellitus without complication, *03/09/2021 Hidradenitis suppurativa [L73.2] 07/22/2021 Essential hypertension [I10] 05/27/2022 Encounter Status:Closed by CAITIE SQUIRES on 03/21/25 Normal [facility] Absolute lymphocyte countOrd ered By: Henrry Tian on 03-19-2025 Lymphocytes Auto (Unsp spec) [#/Vol] 1.26 10*3/uL 0.83-4.51 [facility] Absolute neutrophil countOrd ered By: Henrry Tian on 03-19-2025 Neutrophils (Bld) [#/Vol] 7.5 10*3/uL 2.0-7.7 [facility] Anion gap in Serum or Plasma Ordered By: Henrry Tian on 03-19-2025 Anion gap [Moles/Vol] 12 mmol/L 5-15 [facility] Automated lymphocyte count a s percentage of total leukocytesOrdered By: Henrry Tian on 03-19-2025 Lymphocytes/100 WBC Auto (Unsp spec) 12.8 % Low 19-41 [facility] BUN/creatinine ratioOrdered By: Henrry Tian on 03-19-2025 Urea nitrogen/Creatinine [Mass ratio] 13.6 mg/mg 10- [facility] Basic Metabolic Profile (BMP )on 03-19-2025 BUN/CRE 13.6 RATIO Normal - [facility] Comment on above: Performed By: #### L 501.6710, L504.2610, L101.9900 #### [facility] [address] [place], [address] Calcium [Mass/Vol] 8.6 mg/dL Normal 7.6-11.0 [facility] Comment on above: Performed By: #### L 501.6710, L504.2610, L101.9900 #### [facility] [address] [place], [address] Chloride [Moles/Vol] 102 mmol/L Normal 98-108 [facility] Comment on above: Performed By: #### L 501.6710, L504.2610, L101.9900 #### [facility] [address] [place], [address] CO2 [Moles/Vol] 22.8 mmol/L Normal 21.0-32.0 [facility] Comment on above: Performed By: #### L 501.6710, L504.2610, L101.9900 #### [facility] [address] [place], [address] Creatinine [Mass/Vol] 0.88 mg/dL Normal 0.70-1.20 [facility] Comment on above: Performed By: #### L 501.6710, L504.2610, L101.9900 #### [facility] [address] [place], [address] ECRCL 108.63 ml/min Normal 50-250 [facility] Comment on above: Performed By: #### L 501.6710, L504.2610, L101.9900 #### [facility] [address] [place], [address] GAP 12 Normal 5-15 [facility] Comment on above: Performed By: #### L 501.6710, L504.2610, L101.9900 #### [facility] [address] [place], [address] GFR/1.73 sq M.predicted among non-blacks MDRD (S/P/Bld) [Vol rate/Area] 98 mL/min/{1.73_m2} Normal >60 [facility] Comment on above: Result Comment: mL/m in/1.73m2 CKD-EPI Creatinine Equation (2020) Performed By: #### L 501.6710, L504.2610, L101.9900 #### [facility] [address] [place], [address] Glucose [Mass/Vol] 98 mg/dL Normal 70-99 [facility] Comment on above: Performed By: #### L 501.6710, L504.2610, L101.9900 #### [facility] [address] [place], [address] Potassium [Moles/Vol] 3.4 mmol/L Normal 3.3-5.1 [facility] Comment on above: Performed By: #### L 501.6710, L504.2610, L101.9900 #### [facility] [address] [place], [address] Sodium [Moles/Vol] 137 mmol/L Normal 133-145 [facility] Comment on above: Performed By: #### L 501.6710, L504.2610, L101.9900 #### [facility] [address] [place], [address] Urea nitrogen [Mass/Vol] 12 mg/dL Normal 4-19 [facility] Comment on above: Performed By: #### L 501.6710, L504.2610, L101.9900 #### [facility] [address] [place], [address] Basophil percentageOrdered B y: Henrryargentina Tian on 03-19-2025 Basophils/100 WBC (Bld) 0.5 % 0-1 [facility] Bedside Glucoseon 03-19-2025 FINGERSTICK GLU 104 mg/dL Normal 74-106 [facility] Comment on above: Result Comment: FATIMAH LEHMAN OF PATIENT CARE PER NURSING PROTOCOL Performed By: #### L 501.080 #### [facility] [address] [place], [address] CBC W/Diff, Automatedon 08-2 -2024 Absolute Lymph 1.26 X10 3/uL Normal 0.83-4.51 [facility] Comment on above: Performed By: #### L 501.6710, L504.2610, L101.9900 #### [facility] [address] [place], [address] Absolute Neut 7.5 X10 3/uL Normal 2.0-7.7 [facility] Comment on above: Performed By: #### L 501.6710, L504.2610, L101.9900 #### [facility] [address] [place], [address] Basophils/100 WBC (Bld) 0.5 % Normal 0-1 [facility] Comment on above: Performed By: #### L 501.6710, L504.2610, L101.9900 #### [facility] [address] [place], [address] Eosinophils/100 WBC (Bld) 2.8 % Normal 0-5 [facility] Comment on above: Performed By: #### L 501.6710, L504.2610, L101.9900 #### [facility] [address] [place], [address] Erythrocyte distribution width (RBC) [Ratio] 11.8 % Normal 11.6-14.6 [facility] Comment on above: Performed By: #### L 501.6710, L504.2610, L101.9900 #### [facility] [address] [place], [address] Hematocrit (Bld) [Volume fraction] 39.2 % Low 40-54 [facility] Comment on above: Performed By: #### L 501.6710, L504.2610, L101.9900 #### [facility] [address] [place], [address] Hemoglobin (Bld) [Mass/Vol] 13.5 g/dL Normal 13.0-16.5 [facility] Comment on above: Performed By: #### L 501.6710, L504.2610, L101.9900 #### [facility] [address] [place], [address] IG% 0.500 Normal 0.0-0.9 [facility] Comment on above: Result Comment: IG% - Immature Granulocytes (promyelocytes, myelocytes and metamyelocytes) > 1% indicates that a LEFT SHIFT is Present. Performed By: #### L 501.6710, L504.2610, L101.9900 #### [facility] [address] [place], [address] Lymphocytes/100 WBC (Bld) 12.8 % Low 19-41 [facility] Comment on above: Performed By: #### L 501.6710, L504.2610, L101.9900 #### [facility] [address] [place], [address] MCH (RBC) [Entitic mass] 29.5 pg Normal 27.0-32.0 [facility] Comment on above: Performed By: #### L 501.6710, L504.2610, L101.9900 #### [facility] [address] [place], [address] MCHC (RBC) [Mass/Vol] 34.4 g/dL Normal 32-36 [facility] Comment on above: Performed By: #### L 501.6710, L504.2610, L101.9900 #### [facility] [address] [place], [address] MCV (RBC) [Entitic vol] 85.8 fL Normal 80-94 [facility] Comment on above: Performed By: #### L 501.6710, L504.2610, L101.9900 #### [facility] [address] [place], [address] Monocytes/100 WBC (Bld) 7.2 % Normal 0-10 [facility] Comment on above: Performed By: #### L 501.6710, L504.2610, L101.9900 #### [facility] [address] [place], [address] Neutrophils/100 WBC (Bld) 76.2 % High 47-70 [facility] Comment on above: Performed By: #### L 501.6710, L504.2610, L101.9900 #### [facility] [address] [place], [address] Nucleated RBC (Bld) [#/Vol] 0 10*3/uL Normal 0-5 [facility] Comment on above: Performed By: #### L 501.6710, L504.2610, L101.9900 #### [facility] [address] [place], [address] Platelet mean volume (Bld) [Entitic vol] 9.1 fL Normal 6.2-12.0 [facility] Comment on above: Performed By: #### L 501.6710, L504.2610, L101.9900 #### [facility] [address] [place], [address] Platelets (Bld) [#/Vol] 330 10*3/uL Normal 150-450 [facility] Comment on above: Performed By: #### L 501.6710, L504.2610, L101.9900 #### [facility] [address] [place], [address] RBC (Bld) [#/Vol] 4.57 10*6/uL Low 4.6-6.2 [facility] Comment on above: Performed By: #### L 501.6710, L504.2610, L101.9900 #### [facility] [address] [place], [address] RDW SD 36.9 fl Normal 35.1-43.9 [facility] Comment on above: Performed By: #### L 501.6710, L504.2610, L101.9900 #### [facility] [address] [place], [address] WBC (Bld) [#/Vol] 9.8 10*3/uL Normal 4.4-11.0 [facility] Comment on above: Performed By: #### L 501.6710, L504.2610, L101.9900 #### [facility] [address] [place], [address] Carbon dioxide, total [Moles /volume] in Central venous bloodOrdered By: Henrry Tian on 03-19-2025 CO2 [Moles/Vol] 22.8 mmol/L 21.0-32.0 [facility] Chloride assayOrdered By: Belen Tian on 03-19-2025 Chloride [Moles/Vol] 102 mmol/L 98-108 [facility] Discharge Instructionon 02-23 Discharge Instruction [facility] Medical Records Department [address] [place] [address] Instructions for Home/Discharge Instructions 03/19/25 0852 MR#: [id number] Acct: [id number] Name: PHI GONZALEZ Rep #: [id number] : 1965 60 From: Henrry Tian MD PCP: Dr. Pepe Osullivan MD Status:ADM IN Discharge Instructions DC O2, CPAP, BIPAP needs Home O2 Discharge instructions: No Dressing / Incision Discharge Activity: Return to Normal Activity Dressing / Incision Call your doctor if you observe: Fever of 101 or Higher, Shortness of breath, Dizziness, Fainting spells, Swelling in the ankles, Chest pain and Increased palpitations (irregular heartbeat) Follow Up Care Test Results: Test results from this visit will be discussed in further detail at your follow-up appointment, if applicable. Discharge Plan Admission Admit Date/Time: 03/17/25 12:22 Attending Provider: Henrry Tian Primary Care Provider: Pepe Osullivan Consulting Providers: Colby Romo; Sae Wilburn; Gwendolyn Cooper; Klarissa Butler; Caitie Sher; Fadi Caceres; Benitez Bianchi Instructions Patient Instructions: Diabetes Food Tips Ch, Diabetes Exercise Program Start, Diabetes Fitness Progress, Diabetes Carbs Fats Protein Discharge Orders/Prescription s Prescriptions: New amoxicillin-pot clavulanate 875-125 mg tablet 1 tab PO BID Qty: 16 0RF Continued Jardiance 10 mg tablet 10 mg PO DAILY insulin glargine [Lantus Solostar U-100 Insulin] 100 unit/mL (3 mL) insulin pen 10 unit subcut QPM Referrals / Follow Up: Pepe Osullivan MD [Primary Care Provider] - Within 1 Week Fadi Caceres MD [Med Staff - Active Staff] - Within 2 Weeks Sae Wilburn DO [Med Staff - Active Staff] - Within 1 Month Disposition Disposition (needs filled in before D/C Order can be placed): Home, Self Care 03/19/25 0857 Henrry Tian MD CC: [employer] Gwendolyn Cooper; [employer] Klarissa Butler; Dr. Pepe Osullivan MD; Dr. Benitez Bianchi MD; Dr. Fadi Caceres MD; Dr. Colby Romo MD; MATTHEW Brizuela; Sae Wilburn DO Signed Normal [facility] Eosinophil percentageOrdered By: Henrry Tian on 03-19-2025 Eosinophils/100 WBC (Bld) 2.8 % 0-5 [facility] Erythrocyte distribution wid th ratioOrdered By: Henrry Tian on 03-19-2025 Erythrocyte distribution width (RBC) [Ratio] 11.8 % 11.6-14.6 [facility] Erythrocyte distribution wid th standard deviationOrdered By: Henrry Tian on 03-19-2025 Erythrocyte distribution width (RBC) [Ratio] 36.9 fl 35.1-43.9 [facility] Glomerular filtration rate ( GFR) estimation/1.73 sq m using serum, plasma, or whole bOrdered By: Henrry Tian on 03-19-2025 GFR/1.73 sq M.predicted among non-blacks MDRD (S/P/Bld) [Vol rate/Area] 98 mL/min/{1.73_m2} >60 [facility] Comment on above: mL/min/1.73m2 CKD-EP I Creatinine Equation (2020) [facility] deOrdered By: Henrry Tian on 03-19-2025 Glucose [Mass/Vol] 104 mg/dL 74-106 [facility] Comment on above: MANAGEMENT OF PATIEN T CARE PER NURSING PROTOCOL Hematocrit Auto (Bld) [Volum e fraction]Ordered By: Henrry Tian on 03-19-2025 Hematocrit (Bld) [Volume fraction] 39.2 % Low 40-54 [facility] Hemoglobin measurementOrdere d By: Henrry Tian on 03-19-2025 Hemoglobin (Bld) [Mass/Vol] 13.5 g/dL 13.0-16.5 [facility] Immature granulocytes/100 WB C Auto (Bld)Ordered By: Henrry Tian on 03-19-2025 Immature granulocytes/100 WBC (Bld) 0.500 % 0.0-0.9 [facility] Comment on above: IG% - Immature Granu locytes (promyelocytes, myelocytes and metamyelocytes) > 1% indicates that a LEFT SHIFT is Present. MCV (mean corpuscular volume ) determinationOrdered By: Henrry Tian on 03-19-2025 MCV (RBC) [Entitic vol] 85.8 fL 80-94 [facility] Mean corpuscular hemoglobin (MCH) determinationOrdered By: Henrry Tian on 03-19-2025 MCH (RBC) [Entitic mass] 29.5 pg 27.0-32.0 [facility] Mean corpuscular hemoglobin concentration (MCHC) determinationOrdered By: Henrry Tian on 03-19-2025 MCHC (RBC) [Mass/Vol] 34.4 g/dL 32-36 [facility] Mean platelet volume determi nationOrdered By: Henrry Tian on 03-19-2025 Platelet mean volume (Bld) [Entitic vol] 9.1 fL 6.2-12.0 [facility] Monocyte percentageOrdered B y: Henrry Tian on 03-19-2025 Monocytes/100 WBC (Bld) 7.2 % 0-10 [facility] Neutrophil percentageOrdered By: Henrry Tian on 03-19-2025 Neutrophils/100 WBC (Bld) 76.2 % High 47-70 [facility] Nucleated red blood cell per centageOrdered By: Henrry Tian on 03-19-2025 Nucleated RBC/100 WBC (Bld) [Ratio] 0 % 0-5 [facility] Platelet countOrdered By: Belen Tian on 03-19-2025 Platelets (Bld) [#/Vol] 330 10*3/uL 150-450 [facility] Potassium measurement (mass/ volume)Ordered By: Henrry Tian on 03-19-2025 Potassium (Unsp spec) [Mass/Vol] 3.4 mmol/L 3.3-5.1 [facility] RBC Auto (Bld) [#/Vol]Ordere d By: Henrry Tian on 03-19-2025 RBC (Bld) [#/Vol] 4.57 10*6/uL Low 4.6-6.2 [facility] Serum creatinine measurement (mass/volume)Ordered By: Henrry Tian on 03-19-2025 Creatinine [Mass/Vol] 0.88 mg/dL 0.70-1.20 [facility] Serum glucose measurement (m ass/volume)Ordered By: Henrry Tian on 03-19-2025 Glucose [Mass/Vol] 98 mg/dL 70-99 [facility] Serum or plasma calcium pradeep urement (mass/volume)Ordered By: Henrry Tian on 03-19-2025 Calcium [Mass/Vol] 8.6 mg/dL 7.6-11.0 [facility] Serum or plasma urea nitroge n measurement (mass/volume)Ordered By: Henrry Tian on 03-19-2025 Urea nitrogen [Mass/Vol] 12 mg/dL 4-19 [facility] Sodium levelOrdered By: Rajeev Tian on 03-19-2025 Sodium [Moles/Vol] 137 mmol/L 133-145 [facility] White blood cell (WBC) count Ordered By: Henrry Tian on 03-19-2025 WBC (Bld) [#/Vol] 9.8 10*3/uL 4.4-11.0 [facility] 12 Lead EKGon 03-18-2025 12 Lead EKG [facility] Cardiovascular Services [address] [place] [place] [address] 12 Lead EKG 03/18/25 0405 MR#: [id number] Acct: [id number] Name: PHI GONZALEZ Rep #: [id number] : 1965 60 From: Kirby Durham MD Attending Dr: Dr. Henrry Tian MD Status : ADM IN Ordering Dr: Sarath Talamantes MD Date: 03/18/25 [place] [facility] [place]: M C Admitted: 03/17/25 Test Reason : AM EKG Blood Pressure : */* mmHG Vent. Rate : 79 BPM Atrial Rate : 79 BPM P-R Int : 142 ms QRS Dur : 94 ms QT Int : 394 ms P-R-T Axes : 42 -16 20 degrees QTcB Int : 451 ms Normal sinus rhythm Normal ECG No previous ECGs available Confirmed by KIRBY DURHAM MD ([id number]), senior technical editor MAYNOR KWONG ([id number]) on 03/18/2025 12:59:34 PM Referred By: TATE Confirmed By: KIRBY DURHAM MD 03/18/25 1259 Date Kirby Durham MD CC: Dr. Pepe Osullivan MD; Dr. Sarath Talamantes MD; Dr. Henrry Tian MD Signed Normal [facility] Basic Metabolic Profile (BMP )on 03-18-2025 BUN/CRE 12.0 RATIO Normal 10-20 [facility] Comment on above: Performed By: #### L 500.2500, L501.9520, L100.0100 #### [facility] [address] [place], [address] Calcium [Mass/Vol] 9.1 mg/dL Normal 7.6-11.0 [facility] Comment on above: Performed By: #### L 500.2500, L501.9520, L100.0100 #### [facility] [address] [place], [address] Chloride [Moles/Vol] 98 mmol/L Normal 98-108 [facility] Comment on above: Performed By: #### L 500.2500, L501.9520, L100.0100 #### [facility] [address] [place], [address] CO2 [Moles/Vol] 25.0 mmol/L Normal 21.0-32.0 [facility] Comment on above: Performed By: #### L 500.2500, L501.9520, L100.0100 #### [facility] [address] [place], [address] Creatinine [Mass/Vol] 1.00 mg/dL Normal 0.70-1.20 [facility] Comment on above: Performed By: #### L 500.2500, L501.9520, L100.0100 #### [facility] [address] [place], [address] ECRCL 95.89 ml/min Normal 50-250 [facility] Comment on above: Performed By: #### L 500.2500, L501.9520, L100.0100 #### [facility] [address] [place], [address] GAP 14 Normal 5-15 [facility] Comment on above: Performed By: #### L 500.2500, L501.9520, L100.0100 #### [facility] [address] [place], [address] GFR/1.73 sq M.predicted among non-blacks MDRD (S/P/Bld) [Vol rate/Area] 86 mL/min/{1.73_m2} Normal >60 [facility] Comment on above: Result Comment: mL/m in/1.73m2 CKD-EPI Creatinine Equation (2020) Performed By: #### L 500.2500, L501.9520, L100.0100 #### [facility] [address] [place], [address] Glucose [Mass/Vol] 114 mg/dL High 70-99 [facility] Comment on above: Performed By: #### L 500.2500, L501.9520, L100.0100 #### [facility] [address] [place], [address] Potassium [Moles/Vol] 3.3 mmol/L Normal 3.3-5.1 [facility] Comment on above: Performed By: #### L 500.2500, L501.9520, L100.0100 #### [facility] [address] [place], [address] Sodium [Moles/Vol] 137 mmol/L Normal 133-145 [facility] Comment on above: Performed By: #### L 500.2500, L501.9520, L100.0100 #### [facility] [address] [place], [address] Urea nitrogen [Mass/Vol] 12 mg/dL Normal 4-19 [facility] Comment on above: Performed By: #### L 500.2500, L501.9520, L100.0100 #### [facility] [address] [place], [address] Bedside Glucoseon 03-18-2025 FINGERSTICK GLU 117 mg/dL High 74-106 [facility] Comment on above: Result Comment: FATIMAH GEMENT OF PATIENT CARE PER NURSING PROTOCOL Performed By: #### L 501.6710, L504.2610, L101.9900 #### [facility] [address] [place], [address] FINGERSTICK GLU 91 mg/dL Normal 74-106 [facility] Comment on above: Result Comment: FATIMAH GEMENT OF PATIENT CARE PER NURSING PROTOCOL Performed By: #### L 501.080 #### [facility] [address] [place], [address] FINGERSTICK GLU 119 mg/dL High 74-106 [facility] Comment on above: Result Comment: FATIMAH GEMENT OF PATIENT CARE PER NURSING PROTOCOL Performed By: #### L 501.6710, L504.2610, L101.9900 #### [facility] [address] [place], [address] FINGERSTICK GLU 127 mg/dL High 74-106 [facility] Comment on above: Result Comment: FATIMAH GEMENT OF PATIENT CARE PER NURSING PROTOCOL Performed By: #### L 501.6710, L504.2610, L101.9900 #### [facility] [address] [place], [address] CBC W/Diff, Automatedon 08-2 -2024 Absolute Lymph 1.94 X10 3/uL Normal 0.83-4.51 [facility] Comment on above: Performed By: #### L 500.2500, L501.9520, L100.0100 #### [facility] [address] [place], [address] Absolute Neut 6.7 X10 3/uL Normal 2.0-7.7 [facility] Comment on above: Performed By: #### L 500.2500, L501.9520, L100.0100 #### [facility] [address] [place], [address] Basophils/100 WBC (Bld) 0.7 % Normal 0-1 [facility] Comment on above: Performed By: #### L 500.2500, L501.9520, L100.0100 #### [facility] [address] [place], [address] Eosinophils/100 WBC (Bld) 1.9 % Normal 0-5 [facility] Comment on above: Performed By: #### L 500.2500, L501.9520, L100.0100 #### [facility] [address] [place], [address] Erythrocyte distribution width (RBC) [Ratio] 11.8 % Normal 11.6-14.6 [facility] Comment on above: Performed By: #### L 500.2500, L501.9520, L100.0100 #### [facility] [address] [place], [address] Hematocrit (Bld) [Volume fraction] 41.8 % Normal 40-54 [facility] Comment on above: Performed By: #### L 500.2500, L501.9520, L100.0100 #### [facility] [address] [place], [address] Hemoglobin (Bld) [Mass/Vol] 14.3 g/dL Normal 13.0-16.5 [facility] Comment on above: Performed By: #### L 500.2500, L501.9520, L100.0100 #### [facility] [address] [place], [address] IG% 0.400 Normal 0.0-0.9 [facility] Comment on above: Result Comment: IG% - Immature Granulocytes (promyelocytes, myelocytes and metamyelocytes) > 1% indicates that a LEFT SHIFT is Present. Performed By: #### L 500.2500, L501.9520, L100.0100 #### [facility] [address] [place], [address] Lymphocytes/100 WBC (Bld) 20.0 % Normal 19-41 [facility] Comment on above: Performed By: #### L 500.2500, L501.9520, L100.0100 #### [facility] [address] [place], [address] MCH (RBC) [Entitic mass] 29.2 pg Normal 27.0-32.0 [facility] Comment on above: Performed By: #### L 500.2500, L501.9520, L100.0100 #### [facility] [address] [place], [address] MCHC (RBC) [Mass/Vol] 34.2 g/dL Normal 32-36 [facility] Comment on above: Performed By: #### L 500.2500, L501.9520, L100.0100 #### [facility] [address] [place], [address] MCV (RBC) [Entitic vol] 85.5 fL Normal 80-94 [facility] Comment on above: Performed By: #### L 500.2500, L501.9520, L100.0100 #### [facility] [address] [place], [address] Monocytes/100 WBC (Bld) 8.0 % Normal 0-10 [facility] Comment on above: Performed By: #### L 500.2500, L501.9520, L100.0100 #### [facility] [address] [place], [address] Neutrophils/100 WBC (Bld) 69.0 % Normal 47-70 [facility] Comment on above: Performed By: #### L 500.2500, L501.9520, L100.0100 #### [facility] [address] [place], [address] Nucleated RBC (Bld) [#/Vol] 0 10*3/uL Normal 0-5 [facility] Comment on above: Performed By: #### L 500.2500, L501.9520, L100.0100 #### [facility] [address] [place], [address] Platelet mean volume (Bld) [Entitic vol] 9.0 fL Normal 6.2-12.0 [facility] Comment on above: Performed By: #### L 500.2500, L501.9520, L100.0100 #### [facility] [address] [place], [address] Platelets (Bld) [#/Vol] 335 10*3/uL Normal 150-450 [facility] Comment on above: Performed By: #### L 500.2500, L501.9520, L100.0100 #### [facility] [address] [place], [address] RBC (Bld) [#/Vol] 4.89 10*6/uL Normal 4.6-6.2 [facility] Comment on above: Performed By: #### L 500.2500, L501.9520, L100.0100 #### [facility] [address] [place], [address] RDW SD 37.1 fl Normal 35.1-43.9 [facility] Comment on above: Performed By: #### L 500.2500, L501.9520, L100.0100 #### [facility] [address] [place], [address] WBC (Bld) [#/Vol] 9.7 10*3/uL Normal 4.4-11.0 [facility] Comment on above: Performed By: #### L 500.2500, L501.9520, L100.0100 #### [facility] [address] [place], [address] Colonoscopy Reporton 025 Colonoscopy Report [facility] Medical Records Department [address] [place] [address] Colonoscopy Report MR#: [id number] Acct: [id number] Name: PHI GONZALEZ Rep #: [id number] : 1965 60 From: Sae Wilburn DO PCP: Dr. Pepe Osullivan MD Status:ADM IN Patient Name: Phi Gonzalez Procedure Date: 03/18/2025 3:19 PM Date of : 1965 Age: 60 Procedure: Colonoscopy Indications: Abdominal pain in the left lower quadrant, Abnormal CT of the GI tract Providers: Sae Wilburn DO Medicines: Monitored Anesthesia Care Patient Profile: This is a 60 year old male. Refer to note in patient chart for documentation of history and physical. Last Colonoscopy: several years ago. Complications: No immediate complications. Procedure: Pre-Anesthesia Assessment: - Prior to the procedure, a History and Physical was performed, and patient medications and allergies were reviewed. The patient is competent. The risks and benefits of the procedure and the sedation options and risks were discussed with the patient. All questions were answered and informed consent was obtained. Patient identification and proposed procedure were verified by the physician in the pre-procedure area. Mental Status Examination: alert and oriented. Airway Examination: normal oropharyngeal airway and neck mobility. Respiratory Examination: clear to auscultation. CV Examination: normal. Prophylactic Antibiotics: The patient does not require prophylactic antibiotics. Prior Anticoagulants: The patient has taken no anticoagulant or antiplatelet agents. ASA Grade Assessment: III - A patient with severe systemic disease. After reviewing the risks and benefits, the patient was deemed in satisfactory condition to undergo the procedure. The anesthesia plan was to use monitored anesthesia care (MAC). Immediately prior to administration of medications, the patient was re-assessed for adequacy to receive sedatives. The heart rate, respiratory rate, oxygen saturations, blood pressure, adequacy of pulmonary ventilation, and response to care were monitored throughout the procedure. The physical status of the patient was re-assessed after the procedure. After I obtained informed consent, the scope was passed under direct vision. Throughout the procedure, the patient's blood pressure, pulse, and oxygen saturations were monitored continuously. The Colonoscope was introduced through the anus and advanced to the cecum, identified by appendiceal orifice and ileocecal valve. The colonoscopy was performed without difficulty. The patient tolerated the procedure well. The quality of the bowel preparation was poor. Anatomical landmarks were photographed. Scope In: 3:32:50 PM Scope Out: 3:43:03 PM Total Procedure Duration Time 0 hours 10 minutes 13 seconds Findings: The perianal and digital rectal examinations were normal. Multiple small and large-mouthed diverticula were found in the recto-sigmoid colon, sigmoid colon and descending colon. Segmental severe inflammation characterized by granularity and deep ulcerations was found in the recto-sigmoid colon, in the sigmoid colon and in the descending colon. Biopsies were taken with a cold forceps for histology. Verification of patient identification for the specimen was done. Estimated blood loss was minimal. An ulcerated non-obstructing large mass was found in the sigmoid colon and in the descending colon. The mass was circumferential. The mass measured seven cm in length. In addition, its diameter measured four mm. No bleeding was present. This was biopsied with a cold forceps for histology and diagnostic purposes. Verification of patient identification for the specimen was done. Estimated blood loss was minimal. A large amount of stool was found in the sigmoid colon, in the descending colon, at the splenic flexure, in the transverse colon, at the hepatic flexure, in the ascending colon and in the cecum. Impression: - Preparation of the colon was poor. - Diverticulosis in the recto-sigmoid colon, in the sigmoid colon and in the descending colon. - Segmental severe inflammation was found in the recto-sigmoid colon, in the sigmoid colon and in the descending colon secondary to ischemic colitis. Biopsied. - Benign tumor in the sigmoid colon and in the descending colon. Biopsied. - Stool in the sigmoid colon, in the descending colon, at the splenic flexure, in the transverse colon, at the hepatic flexure, in the ascending colon and in the cecum. Recommendation: - Return patient to [facility] for ongoing care. - Full liquid diet today. - Continue present medications. - Await pathology results. - Repeat colonoscopy in 4 months for surveillance. Procedure Code(s): --- Professional --- 86962, Colonoscopy, flexible; with biopsy, single or (more content not included)... Normal [facility] Electrocardiogram reportOrde red By: Kirby Durham on 03-18-2025 EKG study [facility] Cardiovascular Services [address] [place] [address] 12 Lead EKG 03/18/25 0405 MR#: [id number] Acct: [id number] Name: PHI GONZALEZ Rep #:[id number] : 1965 60 From: Kirby Durham MD Attending Dr: Dr. Henrry Tian MD Status: ADM IN Ordering Dr: Sarath Talamantes MD Date: Location: MS3 Sex: M C Admitted: 03/17/25 Test Reason : AM EKG Blood Pressure : */* mmHG Vent. Rate : 79 BPM Atrial Rate : 79 BPM P-R Int : 142 ms QRS Dur : 94 ms QT Int : 394 ms P-R-T Axes : 42 -16 20 degrees QTcB Int : 451 ms Normal sinus rhythm Normal ECG No previous ECGs available Confirmed by JOSÉ SKINNER, KIRBY ([id number]), senior technical editor MANYOR KWONG ([id number]) on 03/18/2025 12:59:34 PM Referred By: TATE Confirmed By: KIRBY DURHAM MD 03/18/25 1259 Date _ Kirby Durham MD CC: Dr. Pepe Osullivan MD; Dr. Sarath Talamantes MD; Dr. Henrry Tian MD ~ Signed [facility] Other Frozen Section (charge)on Frozen Section (charge) --- Patient Age/Sex Location Account Attending Physician PHI GONZALEZ 60/M MS3 [id number] Dr. Henrry Tian MD Specimen: [id number] Received: 03/18/25 Status: MADDISON Vasquez Num: [id number] Spec Type: Mass Subm Dr: Sae Wilburn DO HEADCARLA OPERATION: Colonoscopy, biopsy, frozen section PRE-OP DIAGNOSIS: Large bowel obstruction, colonic mass TISSUE SUBMITTED: A- Colonic mass for frozen section, B- Colonic mass biopsy FROZEN SECTION DIAGNOSIS A. Colon, mass, biopsy: Inflammatory lesion. MS.mr 03/18/2025 MICROSCOPIC DIAGNOSIS A. Colon, mass, biopsy: - Colonic mucosa with acute and chronic inflammation. - Negative for malignancy. B. Colon, mass, biopsy: - Colonic mucosa with acute and chronic inflammation - see note. - Negative for malignancy. Note: Reactive epithelial change is noted. No definitive dysplasia or significant crypt distortion is observed in these sections. MICROSCOPIC DESCRIPTION Slides are reviewed. GROSS DESCRIPTION A. Received fresh for frozen section diagnosis labeled with the patient's name and date of . Designated as colonic mass are 4 rodrigues-red tissue fragments, 0.2 cm to 0.5 cm. Entirely submitted for frozen section diagnosis and subsequently placed in cassette A1 for permanent sections. B. Received in fixative is one container labeled with the patient's name and designated Colonic mass biopsy. The specimen consists of a 1.1 x 0.4 x 0.2 cm aggregate of rodrigues tissue fragments. Entirely submitted in 1 cassette. VT 03/18/2025 CPT:78817b1,69653 Patient Age/Sex Location Account Attending Physician PHI GONZALEZ 60/M MS3 [id number] Dr. Henrry Tian MD Signed (signatur e on file) Dr. Keyla Jung MD 03/21/25 1329 Normal [facility] Comment on above: Performed By: #### L 501.6710, L504.2610, L101.9900 #### [facility] Laboratory [address] [place], [address] MR/OP.PROVATon 03-18-2025 MR/OP.PROVAT [facility] Medical Records Department [address] [place] [address] Provation Physician Letter MR#: [id number] Acct: [id number] Name: PHI GONZALEZ Rep #: [id number] : 1965 60 From: Sae Wilburn DO PCP: Dr. Pepe Osullivan MD Status:ADM IN 03/18/2025 Pepe Osullivan Re : Colonoscopy procedure for Phi Gonzalez Lisa Osullivan This procedure was performed on Tuesday, March 18, 2025. My impressions and recommendations are as follows: Impressions : - Preparation of the colon was poor. - Diverticulosis in the recto-sigmoid colon, in the sigmoid colon and in the descending colon. - Segmental severe inflammation was found in the recto-sigmoid colon, in the sigmoid colon and in the descending colon secondary to ischemic colitis. Biopsied. - Benign tumor in the sigmoid colon and in the descending colon. Biopsied. - Stool in the sigmoid colon, in the descending colon, at the splenic flexure, in the transverse colon, at the hepatic flexure, in the ascending colon and in the cecum. Recommendations : - Return patient to hospital [facility] for ongoing care. - Full liquid diet today. - Continue present medications. - Await pathology results. - Repeat colonoscopy in 4 months for surveillance. My findings are described in the full procedure note, which is enclosed. If I can be of further assistance, please feel free to contact me at . Sincerely, Sae Wilburn DO 03/18/2025 3:59:43 PM This report has been signed electronically. 03/18/25 9046 Date Sae Wilburn DO Cosigner Signature: Date (if indicated) CC: MANAGEMENT INTERNSHIP-Sharda Cooper; MANAGEMENT INTERNS[employer]IP-Sharda Butler; Dr. Pepe Osullivan MD; Dr. Benitez Bianchi MD; Dr. Fadi Caceres MD; Dr. Henrry Tian MD; Dr. Colby Romo MD; MATTHEW Brizuela; Sae Wilburn DO Date Dictated: 03/18/25 1519 Date Transcribed: Bag Inspector: DEMI Bhakta [facility]OP[facility] Medical Records Department [address] [place] [address] Anesthesia Postop Eval I 03/18/25 1551 MR#: [id number] Acct: [id number] Name: LISAPHI DERIK Rep #: [id number] : 1965 60 From: Nick Carter CRNA PCP: Dr. Pepe Osullivan MD Status:ADM IN Y Race: C Location: [place] [address] Anesthesia: Postop Eval I Current Vital Signs Temperature: 97.9 F Pulse Rate: 85 Blood Pressure: 111/78 Respiratory Rate: 16 Pulse Ox: 98 Assessment Airway patent: Yes Spontaneous unlabored respirations: Yes nausea: No Vomiting: No Anesthesia Complication: No Fluid Hydration Crystalloid volume administer (ml): 500 Total IV fluid infused: 500 Progress Note Anesthesia document: Postop Eval 1 completed: Yes 03/18/25 1551 Date Nick [place] BLOCK SAW OPERATOR Cosigner Signature: Date CC: Signed Normal [facility] TSH DL <= 0.005 mIU/L QnOrde red By: Benitez Bianchi on 03-18-2025 TSH Qn 3.780 uIU/mL 0.300-4.200 [facility] Thyroid Stim Hormone (TSH)on 03-18-2025 TSH 3.780 uIU/mL Normal 0.300-4.200 [facility] Comment on above: Performed By: #### L 500.2500, L501.9520, L100.0100 #### [facility] Laboratory [address] [facility] [place], [place], [address] Abdomen/Pelvis WITH Contrast on 03-17-2025 Abdomen/Pelvis WITH Contrast [facility] Imaging Services [address] [place], [place] [address] Abdomen/Pelvis WITH Contrast MR#: [id number] Acct: [id number] Name: PHI GONZALEZ Rep #: [id number] : 1965 M 60 From: Hair Méndez DO PCP: Dr. Pepe Osullivan MD Status: ADM IN Study: Abdomen/Pelvis WITH Contrast Date of Exam: Exam# [id number] Ordering Dr: Sae Wilburn DO PROCEDURE: ABDOMEN/PELVIS WITH CONTRAST 03/17/2025 REASON FOR EXAM: CONSTIPATION QUESTIONABLE COLON MASS TECHNIQUE: ABDOMEN/PELVIS WITH CONTRAST Coronal and Sagittal reconstruction series were provided. CONTRAST: Isovue 370 VOLUME: 97 mL One or more dose reduction techniques were used (e.g., Automated exposure control, adjustment of the mA and/or kV according to patient size, use of iterative reconstruction technique. RADIATION DOSE SUMMARY: CTDlvol: 9.47 and 32.86 mGy DLP: 1872.67 mGycm FINDINGS: Lung bases: Clear. No pleural effusions. Normal Liver: Normal Gallbladder: Intact. Vague suggestion of radiolucent stones Spleen: Unremarkable Pancreas: No inflammatory stranding or pseudocyst. Unremarkable pancreas. Adrenals: Normal Kidneys: Bilateral small renal cysts, Bosniak 1 requiring no follow-up. Kidneys are otherwise normal in location, contour and enhancement. No hydronephrosis. Bladder: Unremarkable Reproductive Organs: Enlarged prostate Bowel: Thickening and inflammatory stranding in the distal sigmoid colon. This is likely diverticulitis but has a masslike appearance and neoplasm can not be entirely excluded. Appendix: Normal appendix. Lymph nodes: No adenopathy. Vasculature: Unremarkable aorta and IVC Peritoneum / Retroperitoneum: Trace fluid around the inflamed sigmoid colon. No free air. Bones: No aggressive bony process. CT/Abdomen/Pelvis WITH Contrast IMPRESSION: Inflammatory sigmoid colon finding. More likely than not this is diverticulitis, but lesion has a masslike appearance is sigmoid colon carcinoma can not be entirely excluded. Subtle suggestion of radiolucent gallstones. Consider gallbladder ultrasound follow-up if clinically relevant Reading Location: [facility] CC: Dr. Pepe Osullivan MD; Sae Wilburn DO Bag Inspector: Signed Normal [facility] Abdomen/Pelvis without Conto n 03-17-2025 Abdomen/Pelvis without Cont [facility] Imaging Services [address] [place] [address] Abdomen/Pelvis without Cont MR#: [id number] Acct: [id number] Name: PHI GONZALEZ Rep #: [id number] : 1965 M 60 From: Hair Méndez DO PCP: Dr. Pepe Osullivan MD Status: ADM IN Study: Abdomen/Pelvis without Cont Date of Exam: 02/23 11/16 Exam# [id number] Ordering Dr: Fadi Caceres MD PROCEDURE: ABDOMEN/PELVIS WITHOUT IV CONTRAST 03/17/2025 REASON FOR EXAM: CONSTIPATION,QUESTI ONABLE COLON MASS TECHNIQUE: ABDOMEN/PELVIS WITHOUT CONT Noncontrast technique limits evaluation of the abdominal and pelvic viscera. Coronal and Sagittal reconstruction series were provided. One or more dose reduction techniques were used (e.g., Automated exposure control, adjustment of the mA and/or kV according to patient size, use of iterative reconstruction technique). RADIATION DOSE SUMMARY: CTDlvol: 20.8 mGy DLP: 5 1151.22 mGycm COMPARISON: Earlier today FINDINGS: Lung bases: Unremarkable. No infiltrates or nodules. Liver: No evidence of liver metastatic disease. Gallbladder: Normal Spleen: Normal Pancreas: Normal Adrenals: Normal Kidneys: Simple cyst right kidney otherwise unremarkable Bladder: Unremarkable Reproductive Organs: Enlarged prostate Bowel: 10 cm lesion is located in the mid to proximal sigmoid colon. This seems to have a nearly apple-core appearance to it this is a barium enema finding indicating colon carcinoma. The thickened tumor produces a nearly occlusive passage to contrast, but there is contrast seen on both sides a vague suggestion of a string of contrast getting through, also findings associated with colon cancer Appendix: Normal Lymph nodes: No pathologically enlarged lymph nodes are identified. Questionable punctate lymph nodes in the mesentery Vasculature: Aorta and IVC are unremarkable. Peritoneum / Retroperitoneum: Trace fluid around the lesion no free air. Bones: No aggressive bony lesion identified. CT/Abdomen/Pelvis without Cont IMPRESSION: Large 10 cm lesion in the proximal to mid sigmoid colon, likely representing colon carcinoma. Diverticulitis is considered much less likely. Reading Location[facility] CC: Dr. Pepe Osullivan MD; Dr. Fadi Caceres MD Bag Inspector: Signed Normal [facility] Bedside Glucoseon 03-17-2025 FINGERSTICK GLU 150 mg/dL High 74-106 [facility] Comment on above: Result Comment: FATIMAH GEMENT OF PATIENT CARE PER NURSING PROTOCOL Performed By: #### L 501.080 #### [facility] Laboratory [address] [place], [place], [address] FINGERSTICK GLU 128 mg/dL High 74-106 [facility] Comment on above: Result Comment: FATIMAH GEMENT OF PATIENT CARE PER NURSING PROTOCOL Performed By: #### L 501.6710, L504.2610, L101.9900 #### [facility] [address] [place], [address] Bilirubin, totalOrdered By: Benitez Bianchi on 03-17-2025 Bilirubin [Mass/Vol] 0.67 mg/dL 0.00-1.30 [facility] CBC W/Diff, Automatedon 08-2 4-2025 Absolute Lymph 1.27 X10 3/uL Normal 0.83-4.51 [facility] Comment on above: Performed By: #### L 501.6710, L504.2610, L101.9900 #### [facility] [address] [place], [address] Absolute Neut 9.5 X10 3/uL High 2.0-7.7 [facility] Comment on above: Performed By: #### L 501.6710, L504.2610, L101.9900 #### [facility] [address] [place], [address] Basophils/100 WBC (Bld) 0.3 % Normal 0-1 [facility] Comment on above: Performed By: #### L 501.6710, L504.2610, L101.9900 #### [facility] [address] [place], [address] Eosinophils/100 WBC (Bld) 0.5 % Normal 0-5 [facility] Comment on above: Performed By: #### L 501.6710, L504.2610, L101.9900 #### [facility] [address] [place], [address] Erythrocyte distribution width (RBC) [Ratio] 11.7 % Normal 11.6-14.6 [facility] Comment on above: Performed By: #### L 501.6710, L504.2610, L101.9900 #### [facility] [address] [place], [address] Hematocrit (Bld) [Volume fraction] 40.9 % Normal 40-54 [facility] Comment on above: Performed By: #### L 501.6710, L504.2610, L101.9900 #### [facility] [address] [place], [address] Hemoglobin (Bld) [Mass/Vol] 14.2 g/dL Normal 13.0-16.5 [facility] Comment on above: Performed By: #### L 501.6710, L504.2610, L101.9900 #### [facility] [address] [place], [address] IG% 0.300 Normal 0.0-0.9 [facility] Comment on above: Result Comment: IG% - Immature Granulocytes (promyelocytes, myelocytes and metamyelocytes) > 1% indicates that a LEFT SHIFT is Present. Performed By: #### L 501.6710, L504.2610, L101.9900 #### [facility] [address] [place], [address] Lymphocytes/100 WBC (Bld) 10.9 % Low 19-41 [facility] Comment on above: Performed By: #### L 501.6710, L504.2610, L101.9900 #### [facility] [address] [place], [address] MCH (RBC) [Entitic mass] 29.5 pg Normal 27.0-32.0 [facility] Comment on above: Performed By: #### L 501.6710, L504.2610, L101.9900 #### [facility] [address] [place], [address] MCHC (RBC) [Mass/Vol] 34.7 g/dL Normal 32-36 [facility] Comment on above: Performed By: #### L 501.6710, L504.2610, L101.9900 #### [facility] [address] [place], [address] MCV (RBC) [Entitic vol] 84.9 fL Normal 80-94 [facility] Comment on above: Performed By: #### L 501.6710, L504.2610, L101.9900 #### [facility] [address] [place], [address] Monocytes/100 WBC (Bld) 6.0 % Normal 0-10 [facility] Comment on above: Performed By: #### L 501.6710, L504.2610, L101.9900 #### [facility] [address] [place], [address] Neutrophils/100 WBC (Bld) 82.0 % High 47-70 [facility] Comment on above: Performed By: #### L 501.6710, L504.2610, L101.9900 #### [facility] [address] [place], [address] Nucleated RBC (Bld) [#/Vol] 0 10*3/uL Normal 0-5 [facility] Comment on above: Performed By: #### L 501.6710, L504.2610, L101.9900 #### [facility] [address] [place], [address] Platelet mean volume (Bld) [Entitic vol] 8.7 fL Normal 6.2-12.0 [facility] Comment on above: Performed By: #### L 501.6710, L504.2610, L101.9900 #### [facility] [address] [place], [address] Platelets (Bld) [#/Vol] 326 10*3/uL Normal 150-450 [facility] Comment on above: Performed By: #### L 501.6710, L504.2610, L101.9900 #### [facility] [address] [place], [address] RBC (Bld) [#/Vol] 4.82 10*6/uL Normal 4.6-6.2 [facility] Comment on above: Performed By: #### L 501.6710, L504.2610, L101.9900 #### [facility] [address] [place], [address] RDW SD 35.8 fl Normal 35.1-43.9 [facility] Comment on above: Performed By: #### L 501.6710, L504.2610, L101.9900 #### [facility] [address] [place], [address] WBC (Bld) [#/Vol] 11.6 10*3/uL High 4.4-11.0 [facility] Comment on above: Performed By: #### L 501.6710, L504.2610, L101.9900 #### [facility] [address] [place], [address] CT ABDOMEN PELVIS WITH IV CO NTRAST ONLYon 03-17-2025 CT ABDOMEN PELVIS WITH IV CONTRAST ONLY EXAMINATION: CT ABDOMEN PELVIS WITH IV CONTRAST ONLY, 03/17/2025 HISTORY: ORDERING SYSTEM PROVIDED HISTORY: Abd pain, constipation, TECHNOLOGIST PROVIDED HISTORY: Illness/Other Reason for exam: abd pain, constipation Encounter Type: Initial Additional signs and symptoms: constipation x 11 days ORDERING SYSTEM PROVIDED DIAGNOSIS CODES: COMPARISON: None TECHNIQUE: CT examination of the abdomen and pelvis following the administration of intravenous contrast. Coronal and sagittal reformations were performed. Dose reduction techniques were achieved by using automated exposure control and/or adjustment of mA and/or kV according to patient size and/or use of iterative reconstruction technique. CONTRAST: IOPAMIDOL 370 MG IODINE/ML (76 %) INTRAVENOUS SOLUTION - 75 mL, FINDINGS: Large soft tissue density is seen in the sigmoid colon with surrounding stranding and mild enlarged regional lymph nodes, concerning for malignancy with surrounding inflammation/divert iculitis. The soft tissue lesion measures approximately 10 x 7 cm. Multiple diverticula seen in the sigmoid colon. There is moderate stool in the colon. The stomach and small bowel loops are nondilated. The appendix is unremarkable. Mild hepatic steatosis with probable subcentimeter cyst in the dome of the liver. Patent portal venous system. The spleen, gallbladder, bile ducts, pancreas and both adrenal glands are unremarkable. Multiple bilateral renal cysts. No hydronephrosis or hydroureter. Partially filled urinary bladder. Moderate prostatic enlargement. Bilateral small inguinal hernias containing predominantly fatty tissue. Small fat containing umbilical hernia. No free fluid in the peritoneal cavity the bone windows demonstrate grade 1 anterolisthesis of L5 over S1 with bilateral pars defect. Scans through the lung bases are clear. IMPRESSION: 1. Soft tissue density in the sigmoid colon measuring 10 x 7 cm, with surrounding areas of stranding and mild regional lymph node enlargement, concerning for malignancy with probable inflammation/divert iculitis. 2. Mild hepatic steatosis and probable subcentimeter cyst. 3. Bilateral renal cortical cysts. 4. Small umbilical and inguinal hernias. Workstation ID: [id number] Dictated by: ELÍAS COOPER on TueMar 17, 2025 8:14:44 AM EDT Transcribed by: ELÍAS COOPER on [facility] Mar 17, 2025 8:14:44 AM EDT Finalized by: ELÍAS COOPER on [facility] Mar 17, 2025 8:14:44 AM EDT [facility] Comment on above: Order Comment: Injur y/Trauma or Illness?:Illness/Other How long have you had these symptoms (acute/chronic)?:Acute Reason for exam?:abd pain, constipation Type of Exam?:Initial Additional signs and symptoms?:constipation x 11 days Comprehensive Metabolic Prof [facility] 03-17-2025 Albumin [Mass/Vol] 3.6 g/dL Normal 3.4-4.8 [facility] Comment on above: Performed By: #### L 501.6710, L504.2610, L101.9900 #### [facility] [address] [place], [address] Albumin/Globulin [Mass ratio] 0.9 {ratio} Normal 0.9-2.4 [facility] Comment on above: Performed By: #### L 501.6710, L504.2610, L101.9900 #### [facility] [address] [place], [address] ALK PHOS 69 U/L Normal 40-129 [facility] Comment on above: Performed By: #### L 501.6710, L504.2610, L101.9900 #### [facility] [address] [place], [address] ALT [Catalytic activity/Vol] 12 U/L Normal <=46 [facility] Comment on above: Performed By: #### L 501.6710, L504.2610, L101.9900 #### [facility] [address] [place], [address] AST [Catalytic activity/Vol] 15 U/L Normal <=37 [facility] Comment on above: Performed By: #### L 501.6710, L504.2610, L101.9900 #### [facility] [address] [place], [address] Bilirubin [Mass/Vol] 0.67 mg/dL Normal 0.00-1.30 [facility] Comment on above: Performed By: #### L 501.6710, L504.2610, L101.9900 #### [facility] [address] [place], [address] BUN/CRE 9.9 RATIO Low 10-20 [facility] Comment on above: Performed By: #### L 501.6710, L504.2610, L101.9900 #### [facility] [address] [place], [address] Calcium [Mass/Vol] 8.8 mg/dL Normal 7.6-11.0 [facility] Comment on above: Performed By: #### L 501.6710, L504.2610, L101.9900 #### [facility] [address] [place], [address] Chloride [Moles/Vol] 97 mmol/L Low 98-108 [facility] Comment on above: Performed By: #### L 501.6710, L504.2610, L101.9900 #### [facility] [address] [place], [address] CO2 [Moles/Vol] 23.6 mmol/L Normal 21.0-32.0 [facility] Comment on above: Performed By: #### L 501.6710, L504.2610, L101.9900 #### [facility] [address] [place], [address] Creatinine [Mass/Vol] 0.96 mg/dL Normal 0.70-1.20 [facility] Comment on above: Performed By: #### L 501.6710, L504.2610, L101.9900 #### [facility] [address] [place], [address] ECRCL 99.89 ml/min Normal 50-250 [facility] Comment on above: Performed By: #### L 501.6710, L504.2610, L101.9900 #### [facility] [address] [place], [address] GAP 13 Normal 5-15 [facility] Comment on above: Performed By: #### L 501.6710, L504.2610, L101.9900 #### [facility] [address] [place], [address] GFR/1.73 sq M.predicted among non-blacks MDRD (S/P/Bld) [Vol rate/Area] 90 mL/min/{1.73_m2} Normal >60 [facility] Comment on above: Result Comment: mL/m in/1.73m2 CKD-EPI Creatinine Equation (2020) Performed By: #### L 501.6710, L504.2610, L101.9900 #### [facility] [address] [place], [address] Globulin (S) [Mass/Vol] 3.8 g/dL Normal 2.2-4.2 [facility] Comment on above: Performed By: #### L 501.6710, L504.2610, L101.9900 #### [facility] [address] [place], [id number] Glucose [Mass/Vol] 171 mg/dL High 70-99 [facility] Comment on above: Performed By: #### L 501.6710, L504.2610, L101.9900 #### [facility] [address] [place], [address] Potassium [Moles/Vol] 3.3 mmol/L Normal 3.3-5.1 [facility] Comment on above: Performed By: #### L 501.6710, L504.2610, L101.9900 #### [facility] [address] [place], [address] Sodium [Moles/Vol] 134 mmol/L Normal 133-145 [facility] Comment on above: Performed By: #### L 501.6710, L504.2610, L101.9900 #### [facility] [address] [place], [address] T PROT 7.3 g/dL Normal 5.9-8.4 [facility] Comment on above: Performed By: #### L 501.6710, L504.2610, L101.9900 #### [facility] [address] [place], [address] Urea nitrogen [Mass/Vol] 9 mg/dL Normal 4-19 [facility] Comment on above: Performed By: #### L 501.6710, L504.2610, L101.9900 #### [facility] [address] [place], [address] Consultation - Surgicalon Consultation - Surgical [facility] Medical Records Department [address] [place] [address] Consultation - Surgical 03/17/25 1756 MR#: [id number] Acct: [id number] Name: PHI GONZALEZ Rep #: [id number] : 1965 60 From: Fadi Caceres MD PCP: Dr. Pepe Osullivan MD Status:ADM IN Location: MS3 RH255-1 Assessment Plan Assessment/Plan (1) Colonic mass: PLAN: Patient is 60-year-old male, past medical history of poorly controlled diabetes, who presents from outside facility with diagnosis of left colon mass that is causing at least partial large bowel obstruction. Patient reports 1 previous colonoscopy approximately 10 years ago that was unremarkable and his findings. However, for the last 11 days he has not had a true bowel movement. CT imaging demonstrates 10 x 7 cm mass of the sigmoid colon with surrounding diverticular disease. Therefore, differential must include neoplastic versus diverticular disease with intramural abscess. Repeat CT imaging with p.o. contrast was obtained but phase was suboptimal since contrast is yet to reach the area of the mass lesion. I have discussed with radiology techs that we should plan to obtain delayed pictures. Patient is currently completing a bowel prep for planned colonoscopy tomorrow. I discussed findings of patient's workup thus far with him at some length. Hand drawings were used to illustrate relevant anatomy and I also reviewed with him his index CT imaging. I shared the possibility of laparoscopic assisted sigmoid colectomy versus LAR with primary colorectal anastomosis versus sigmoid colectomy with ostomy versus diverting ostomy. I shared that if he is unable to have much output with his colon prep and his A1c remains prohibitive then I would strongly recommend we proceed with a colostomy as his risks for anastomotic leak would be prohibitive. He confirmed understanding of this conversation. I have obtained a updated hemoglobin A1c to assess for his glucose control given that his previous value is now 15 months old. Will continue to follow and evaluate patient next tomorrow a.m. Please notify of any acute changes. Fadi Caceres MD General Surgery Endocrine Surgery Pager: [facility] [address] [place] [address], [address] [place] [address] Office: [phone] (2) Large bowel obstruction: HPI Consult Data Date of Consult: 03/17/25 HPI Narrative Reason for Consultation: Concern for left colon mass HPI Narrative: PHI GONZALEZ, is a 60 M who presents to [facility] in direct transfer from [facility] after he presented there with complaints of constipation over the last 11 days. He states that his last bowel movement was 12 days ago and the following day when he went to have a bowel movement he only passed mucus. Since that time he has had constant cramping of his left lower quadrant and the result of attempted bowel movements has always been the same; mucus with some bright red blood. He reports feeling hot several days but is unable to say whether or not he has had any fevers or chills. He denies any nausea or vomiting. He denies any recent weight loss, but states that he has been reluctant to eat. Patient's ED workup that outside hospital showed mild leukocytosis of 11,[address] imaging demonstrating evidence of a sigmoid based mass measuring 10 x 7 cm. I was contacted by outside hospital for possible transfer after patient requested. For the interim patient has been started on a bowel prep by gastroenterology and also a CT scan with p.o. contrast has been completed but not yet read. Patient has a history of intermittent constipation which she states occurred approximately every 12 to 14 months but never lasted more than 3 to 5 days. Outside of this he shares a history of a colonoscopy completed between 9 and 11 years ago at an outpatient facility in [facility]. He reports this was done with Dr. Gutierrez and denies recalling any significant findings. Mr. Gonzalez denies any personal history of diverticulitis and unfortunately is unclear on his family history as he is adopted. Patient has a history of diabetes and reports his last A1c was 10.9 but this was obtained in November 2023. He shares that he has had to cancel a number of visits with his PCP due to his restricted work schedule. However, for the last 14 months he does report that he has been working to improve his glycemic control. He has no history of prior abdominal surgery. [facility] Medical History HTN (hypertension) Diabetes Sleep apnea Home Medications ???Medication ???Instructions ???Recorded ???Last Taken ???Type empagliflozin 10 mg tablet 10 mg PO DAILY 03/17/25 Unknown Hi story (Jardiance) insulin glargine 100 unit/mL (3 10 unit subcut QPM 03/17 (more content not included)... Normal [facility] ED Prov Noteon 03-17-2025 ED Prov Note PCP - Juan R Osullivan MD Chief Complaint Patient presents with Constipation HPI Phi is a pleasant 60-year-old gentleman with history of hypertension, insulin-dependent diabetes presenting here for evaluation of abdominal pain and constipation. He notes symptoms been progressive for the last 11 days or so. He normally has bowel movements daily but for the last 11 days has not had anything besides a tiny bit of watery bowel movement with some blood streaks. He notes that he has had abdominal pain progressive over this time which is worst in the lower abdomen but radiates diffusely. He has felt tactile fever and chills in the last 24 hours. He notes a little bit of discomfort with urination over the last 24 hours as well. He went to outside hospital emergency department 3 days ago and had x-ray performed which was reportedly benign. He had already used Colace, magnesium citrate, enema at home and added MiraLAX and senna as recommended by the [place] emergency department but symptoms have not improved. He has some nausea without vomiting. He notes that he will occasionally have some constipation like this but usually it resolves with stool softener and increased fluids. He denies surgical history. MDM/COURSE I did personally review Phi's past medical history, surgical history, social history, as well as family history (when relevant). In this case, I also oversaw the his drug management by reviewing his medication list, allergy list, as well as the medications that I prescribed during the ED course and/or recommended as an out-patient (including possible OTC medications such as acetaminophen, NSAIDs , etc). His past medical problem list included: Active Ambulatory Problems Diagnosis Date Noted No Active Ambulatory Problems Resolved Ambulatory Problems Diagnosis Date Noted No Resolved Ambulatory Problems Past Medical History: Diagnosis Date Diabetes mellitus (HCC) Hypertension ED MEDICATIONS GIVEN: Medications sodium chloride (PF) (NS) flush 5 mL (has no administration in time range) And sodium chloride 0.9% (NS) (has no administration in time range) sodium chloride 0.9% (NS) bolus 1,000 mL (1,000 mL Intravenous New Bag 03/17/25 6652) potassium chloride 20 mEq in 100 mL IVPB (has no administration in time range) sodium chloride (PF) (NS) 0.9 % contrast line flush 10 mL (10 mL Intravenous Given 03/17/25 8734) And sodium chloride (PF) (NS) 0.9 % contrast line flush 80 mL (80 mL Intravenous Given 03/17/25 8585) iopamidoL (ISOVUE-370) 370 mg iodine /mL (76 %) injection 75 mL (75 mL Intravenous Contrast Administered 03/17/25 1472) After reviewing the items above, I did look at previous medical documentation, such as recent hospitalizations, office visits, and/or recent consultations with PCP/specialist. SDOH: Another factor that I considered in Phi's care was his Social Determinants of Health (SDOH). During this ED encounter, he did NOT appear to have any significant issues identified. LAB TESTING: Labs were obtained during this encounter. Labs were compared to prior values labs with mild hypokalemia RADIOLOGY: I did consider radiological studies for Phi's care today. Radiology testing was notable for CT abdomen pelvis with large stool burden without small bowel obstruction with stranding and distal obstruction from the proximal sigmoid colon of unclear significance, independent review of CT abdomen pelvis. DIFFERENTIAL DIAGNOSES: Some general clinical impressions that I considered included constipation, obstruction, stercoral colitis ED COURSE: Patient stable on reassessment. Potassium will be repleted IV. He is signed out to Dr. العلي pending CT read On this particular ED encounter, I did utilize shared decision making. After consideration of the risks of hospitalization such as nosocomial infections, falls, thromboembolic disease as well as being discharged(worsenin g condition or complications up to cardiopulmonary arrest) at this time the most appropriate disposition for Phi is held over pending reassessment. . IMPRESSION 1. Abdominal pain, unspecified abdominal location 2. Constipation, unspecified constipation type 3. Hypokalemia Past Medical History Past Medical History: Diagnosis Date Diabetes mellitus (HCC) Hypertension Past Surgical History History reviewed. No pertinent surgical history. Family History History reviewed. No pertinent family history. Social History Social History[1] Allergies Allergies[2] Medications Active Home Medications Medication Sig Take Last Dose On Take Morning of Surgery Comment(s) empagliflozin (Jardiance) 10 mg Tab Take 1 (one) tablet (10 mg total) by mouth daily . insulin lispro 100 unit/mL InPn Inject under the skin . Physical Exam Initial Vital Signs BP 131/88 (BP Location: Left arm, Patient Position: Sitting) Pulse 86 Temp (more content not included)... Normal [facility] H AND P Exam - [facility] 03-17-2025 H&P Exam - Hospitalist [facility] Medical Records Department [address] [place] [address] H P Exam - Hospitalist 03/17/25 1249 MR#: [id number] Acct: [id number] Name: PHI GONZALEZ Rep #: [id number] : 1965 60 From: Benitez Bianchi MD PCP: Dr. Pepe Osullivan MD Status:ADM IN [id number] HPI - General General Date of Admission: 03/17/25 Date of Service: 03/17/25 Chief Complaint: Constipation HPI Narrative PHI GONZALEZ, is a 60 M who presents with 11-day history of constipation. Patient initially presented to [place] emergency department CT of the abdomen and pelvis was questionable for diverticulitis with an abscess versus sigmoid mass. Patient did receive IV antibiotics plan was for patient to have been admitted for subsequent eval patient however requested to be transferred to [facility]. Patient did report nausea but denied any vomiting. Reports passing some mucus per rectum. The surgeon on-call was notified prior to patient being admitted. [facility] Medical History HTN (hypertension) Diabetes Sleep apnea Home Medications ???Medication ???Instructions ???Recorded ???Last Taken ???Type empagliflozin 10 mg tablet 10 mg PO DAILY 03/17/25 Unknown Hi story (Jardiance) insulin glargine 100 unit/mL (3 10 unit subcut QPM 03/17/25 Unknow n History mL) subcutaneous pen (Lantus Solostar U-100 Insulin) Allergy/AdvReac Type Severity Reaction Status Date / Time lisinopril AdvReac Mild Nausea Verified 03/17/25 12:48 Surgical History no surgical history Social History (System 03/08/24 @ 13:33 by Hetal Echols) Smoking Status: Never smoker ROS ROS Narrative GENERAL: denies fever, chills, night sweats, weight loss, anorexia HEENT: denies headache, sinus congestion, or drainage, dysphagia RESPIRATORY: denies cough, sputum production, shortness of breath, dyspnea on exertion CARDIAC: denies chest pain, palpitations, orthopnea, PND GASTROINTESTINAL: Constipation and nausea GENITOURINARY: denies dysuria, urgency, frequency, heamaturia EXTREMITY: denies swelling MUSCULOSKELETAL: denies current joint pain or tenderness NEUROLOGIC: denies focal numbness, weakness, tingling HEMATOLOGIC: denies easy bruising and/or hemorrhage INTEGUMENT: denies rashes PSYCHIATRIC: denies suicidal or homicidal ideation Vital Signs Vital Signs Vital Signs: 03/17/25 12:27 Temperature 98.5 F Temperature Source Oral Pulse Rate 96 Respiratory Rate 18 Blood Pressure 134/84 H Blood Pressure Mean 100 Blood Pressure Source Monitor Blood Pressure Position Semi-Fowlers Blood Pressure Location Right Arm Pulse Ox 98 Oxygen Delivery Method Room Air Weight Weight: 115.893 kg Body Mass Index (BMI) 38.8 Physical Exam Narrative GENERAL: cooperative HEENT: Atraumatic; normocephalic EYES; Anicteric, Normal Conjunctiva NECK; supple, normal thyroid, RESPIRATORY: Diminished to auscultation CARDIOVASCULAR: Regular S1 S2, GI: soft but protuberant, normoactive bowel sounds, : No Renal angle tenderness; EXTREMITIES: No edema, no clubbing, MUSCULOSKELETAL: no muscle wasting NEURO: Awake; no lateralizing signs. SKIN: No Rash PSYCH; Flat affect Assessment Plan Assessment/Plan (1) Colonic mass: PLAN: Plan Patient is a 60-year-old gentleman presenting with 11-day history of constipation found to have colonic mass on imaging study obtained on outside hospital 1. Colonic mass ??? Patient presented with 7-day history of constipation. Patient has been admitted to regular nursing floor. Bowel prep initiated. Consult placed to both GI???Dr. Wilburn as well as Dr. Caceres with general surgery 2. Hypokalemia this has been corrected per protocol repeat K levels ordered to assess response to therapy 3. Diabetes mellitus type II -patient's oral hypoglycemics held. Placed on long acting insulin, Accu-Cheks a.c. and at bedtime and covered with sliding scale insulin 4. Hypertension ??? Blood pressure controlled, home medications continued with dose adjustment as needed 5. Class II obesity with BMI of 38.8 ??? Complicating care weight loss advised 6. Dyslipidemia ???Patient is on statin therapy, continued at home dose 7. Obstructive sleep apnea ??? Consistent use of PAP therapy encouraged 8. DVT prophylaxis ??? SCDs for now with plan to initiate chemoprophylaxis following any surgical intervention Time spent in the patient's overall evaluation,decision -making process, review of diagnostic data, adjustment of management, discussion with other providers, nursing nursing and ancillary staff involved in patient's care documentation, 55 Minutes Advance planning; did discuss with the patient regarding advanced directives as well as CODE STATUS. (more content not included)... Normal [facility] Hemoglobin A1con 03-17-2025 HbA1c (Bld) [Mass fraction] 9.9 % High <=5.6 [facility] Comment on above: Result Comment: Norm al < 5.7 % Prediabetic 5.7 - 6.4 % Diabetic >or= 6.5 % Please note range changes. Performed By: #### L 501.6710, L504.2610, L101.9900 #### [facility] [address] [place], [place], [id number] Hemoglobin A1c percentageOrd ered By: Fadi Caceres on 03-17-2025 HbA1c (Bld) [Mass fraction] 9.9 % High <5.7 [facility] Comment on above: Normal < 5.7 % Predi abetic 5.7 - 6.4 % Diabetic >or= 6.5 % Please note range changes. Laboratory - Chemistry and C hemistry - challengeOrdered By: Benitez Bianchi on 03-17-2025 AST [Catalytic activity/Vol] 15 U/L <38 [facility] Magnesiumon 03-17-2025 Magnesium [Mass/Vol] 2.3 mg/dL High 1.5-2.2 [facility] Comment on above: Performed By: #### L 501.6710, L504.2610, L101.9900 #### [facility] [address] [place], [address] Magnesium measurement (mass/ volume)Ordered By: Benitez Bianchi on 03-17-2025 Magnesium (Unsp spec) [Mass/Vol] 2.3 mg/dL High 1.5-2.2 [facility] POC BASIC METABOLIC PANEL - [facility] 03-17-2025 Chloride [Moles/Vol] 99 mmol/L Normal 98-108 [facility] Comment on above: Order Comment: [facility] Services has implemented the eGFR calculation approach that does not have a coefficient for race that conforms to the NKF-ASN Task Force Recommendations. CO2 [Moles/Vol] 30 mmol/L Normal 21-32 [facility] Comment on above: Order Comment: [facility] has implemented the eGFR calculation approach that does not have a coefficient for race that conforms to the NKF-ASN Task Force Recommendations. Creatinine [Mass/Vol] 0.84 mg/dL Normal 0.80-1.30 [facility] Comment on above: Order Comment: [facility] has implemented the eGFR calculation approach that does not have a coefficient for race that conforms to the NKF-ASN Task Force Recommendations. Glucose [Mass/Vol] 166 mg/dL High 65-99 [facility] Comment on above: Order Comment: [facility] has implemented the eGFR calculation approach that does not have a coefficient for race that conforms to the NKF-ASN Task Force Recommendations. POC GFR 99 mL/min/1.73 m2 Normal >=60 [facility] Comment on above: Order Comment: [facility] has implemented the eGFR calculation approach that does not have a coefficient for race that conforms to the NKF-ASN Task Force Recommendations. Result Comment: Angelita mated GFR was calculated using the 2020 CKD-EPI creatinine equation. POC IONIZED CALCIUM 4.5 mg/dL Normal 4.5-5.3 [facility] Comment on above: Order Comment: [facility] has implemented the eGFR calculation approach that does not have a coefficient for race that conforms to the NKF-ASN Task Force Recommendations. Potassium [Moles/Vol] 3.2 mmol/L Low 3.5-5.1 [facility] Comment on above: Order Comment: [facility] has implemented the eGFR calculation approach that does not have a coefficient for race that conforms to the NKF-ASN Task Force Recommendations. Sodium [Moles/Vol] 137 mmol/L Normal 135-145 [facility] Comment on above: Order Comment: [facility] has implemented the eGFR calculation approach that does not have a coefficient for race that conforms to the NKF-ASN Task Force Recommendations. Urea nitrogen [Mass/Vol] 9 mg/dL Normal 8-25 [facility] Comment on above: Order Comment: [facility] has implemented the eGFR calculation approach that does not have a coefficient for race that conforms to the NKF-ASN Task Force Recommendations. POC CBC AND DIFFERENTIALon 0 03-17-2025 BASOPHILS ABSOLUTE COUNT 0.04 K/mcL Normal 0.00-0.30 [facility] Basophils/100 WBC (Bld) 0.3 % Normal [facility] Eosinophils (Bld) [#/Vol] 0.18 10*3/uL Normal 0.00-0.50 [facility] Eosinophils/100 WBC (Bld) 1.6 % Normal [facility] Erythrocyte distribution width (RBC) [Ratio] 11.6 % Normal 11.6-14.8 [facility] Hematocrit (Bld) [Volume fraction] 43.9 % Normal 41.0-53.0 [facility] Hemoglobin (Bld) [Mass/Vol] 15.3 g/dL Normal 13.5-17.5 [facility] IG ABSOLUTE 0.02 K/mcL Normal 0.00-0.30 [facility] IG PERCENT 0.20 % Normal [facility] Comment on above: Result Comment: The IG parameter is the percentage of metamyelocytes, myelocytes and promyelocytes. An immature granulocyte count (IG) of 1% or more suggests the possibility of infection, an IG count of 3% is very likely related to an infection. Lymphocytes (Bld) [#/Vol] 1.47 10*3/uL Normal 0.90-4.00 [facility] Lymphocytes/100 WBC (Bld) 12.7 % Normal [facility] MCH (RBC) [Entitic mass] 29.8 pg Normal 26.0-34.0 [facility] MCV (RBC) [Entitic vol] 85.4 fL Normal 80.0-100.0 [facility] MEAN CORPUSCULAR HEMOGLOBIN CONC 34.9 g/dL Normal 31.0-37.0 [facility] Monocytes (Bld) [#/Vol] 0.80 10*3/uL Normal 0.30-0.90 [facility] Monocytes/100 WBC (Bld) 6.9 % Normal [facility] NEUTROPHILS ABSOLUTE COUNT 9.04 K/mcL High 1.70-7.00 [facility] Neutrophils/100 WBC (Bld) 78.3 % Normal [facility] Platelet mean volume (Bld) [Entitic vol] 8.8 fL Low 9.4-12.4 [facility] Platelets (d) [#/Vol] 321 10*3/uL Normal 150-400 [facility] RBC (d) [#/Vol] 5.14 10*6/uL Normal 4.50-5.90 [facility] WBC (d) [#/Vol] 11.55 10*3/uL High 4.50-11.00 [facility] POC URINALYSIS DIPSTICK,AUTO - RALSon 03-17-2025 POC BILIRUBIN, URINE Negative Normal Negative [facility] POC BLOOD, URINE Negative Normal Negative [facility] POC GLUCOSE, URINE Negative Normal Negative [facility] POC KETONES, URINE Trace Abnormal Negative [facility] POC LEUKOCYTE ESTERASE, URINE Negative Normal Negative [facility] POC NITRITE, URINE Negative Normal Negative [facility] POC PH, URINE 7.0 Normal 5.0-7.0 [facility] POC PROTEIN, URINE Negative Normal Negative [facility] POC SPECIFIC GRAVITY <= Normal 1.005-1.025 [facility] POC UROBILINOGEN 0.2 mg/dL Normal < 2.0 [facility] Phosphoruson 03-17-2025 Phosphate [Mass/Vol] 2.9 mg/dL Normal 2.7-4.5 [facility] Comment on above: Performed By: #### L 501.6710, L504.2610, L101.9900 #### [facility] [address] [place] [address]. [place], [place], [id number] Serum globulin measurementOr dered By: Benitez Bianchi on 03-17-2025 Globulin (S) [Mass/Vol] 3.8 g/dL 2.2-4.2 [facility] Serum or plasma alanine norton otransferase (ALT) measurementOrdered By: Benitez Bianchi on 03-17-2025 ALT [Catalytic activity/Vol] 12 U/L <47 [facility] Serum or plasma albumin pradeep urement (mass/volume)Ordered By: Benitez Bianchi on 03-17-2025 Albumin [Mass/Vol] 3.6 g/dL 3.4-4.8 [facility] Serum or plasma albumin/glob ulin mass ratioOrdered By: Benitez Bianchi on 03-17-2025 Albumin/Globulin [Mass ratio] 0.9 {ratio} 0.9-2.4 [facility] Serum or plasma alkaline fermin sphatase measurementOrdered By: Benitez Bianchi on 03-17-2025 ALP [Catalytic activity/Vol] 69 U/L 40-129 [facility] Total proteinOrdered By: Zack Bianchi on 03-17-2025 Protein [Mass/Vol] 7.3 g/dL 5.9-8.4 [facility] CNOVon 03-15-2025 CNOV Office Visit ([facility]) ---- PHI GONZALEZ ([id number]) 1965 M Date Time Provider Department 03/15/25 2:30 PM INGRID HUERTA During your visit today, we recorded the following information about you: Temperature Pulse Respiration Blood pressure 97.8 degrees 79/minute 18/minute 151/100 Weight 117.5 kg Ingrid Huerta APRN.[employer] AND WELLNESS DIRECTOR 03/15/2025 2:57 PM Signed Constipation Constipation can be an unpleasant topic [...] bran cereal. Add supplemental fiber to your (more content not included)... Normal [facility] XR ABD 2V SUPINE W UPR/DECUB /CTLon 03-15-2025 XR ABD 2V SUPINE W UPR/DECUB/CTL * * *Final Report* * * DATE [...] Nonobstructive bowel gas pattern. Degenerative spine changes. IMPRESSION: Moderate to large stool burden. Bag Inspector: MAYELIN Transcribe Date/Time: Mar 15 2025 2:49P Dictated by : RAUL YUSUF MD This examination was interpreted and the report reviewed and electronically signed by: RAUL YUSUF MD on Mar 15 2025 2:49PM EST [id number] Normal [facility] XR Abdomen Supine and Uprigh ton 03-15-2025 IMPRESSION: Moderate to large stool burden. Bag Inspector: PSCB Transcribe Date/Time: Mar 15 2025 2:49P Dictated [...] Degenerative spine changes. DIVISION OF RADIOLOGY Provider, [facility] [place] - 03/15/2025 * * *Final Report* * [...] IMPRESSION IMPRESSION: Moderate to large stool burden. Bag Inspector: MAYELIN Transcribe Date/Time: Mar 15 2025 2:49P Dictated by : RAUL YUSUF MD This examination was interpreted and the report reviewed and electronically signed by: RAUL YUSFU MD on Mar 15 2025 2:49PM EST [facility] Radiology Study observation (narrative) [facility] Abdomen Supine and Uprigh tOrdered By: [facility] Provider on 03-15-2025 [facility] CNPNon 11-14-2024 CNPN Telephone (FAMPWS) ---- PHI GONZALEZ ([id number]) 1965 M Date Time Provider Department 11/14/24 [...] Sleep apnea is now an indicator for [place]. Not sure if his insurance will cover [...] stuffy nose Date Reviewed: 12/05/2023 Reviewed by: Leann Hill LPN - Fully Assessed Reason for [...] filters, tubing, humidifier and lifetime supplies. - cetirizine-pseudoep hedrine (ZYRTEC-D) 5-120 mg per tablet Take 1 [...] Encounter Status:Closed by JESSICA WYNN [facility] Nurse Visit (EDEDSJ) ---- PHI GONZALEZ ([id number]) 1965 M Date Time Provider Department 10/18/24 3:00 PM DANIELE MCKEON During your visit today, we recorded the following information about you: Daniele Mckeon, RN 10/18/2024 6:00 PM Signed DIABETES SELF-MANAGEMENT EDUCATION AND SUPPORT Location: [facility] Type of visit: Virtual (with video) individual I have communicated my name and active licensure. The patient's identity and physical location were verified at the time of this visit. Either the patient or their legal medical representative has been informed of the risks and benefits of -- and alternatives to -- treatment through a remote evaluation and consents to proceed with the evaluation remotely. 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 [facility] ---- PHI GONZALEZ ([id number]) 1965 M Date Time Provider Department 08/29/24 [facility] During your visit today, we recorded the [...] stuffy nose Date Reviewed: 12/05/2023 Reviewed by: Leann Hill LPN - Fully Assessed Reason for Visit: requesting refill that is [Other] Primary Visit Diagnosis:Type 2 diabetes mellitus with hyperglycemia, unspecified whether residential insulin use (HCC) [E11.65] Order(s):empagliflo zin (JARDIANCE) 10 mg tabletTake 1 tablet by [...] filters, tubing, humidifier and lifetime supplies. - cetirizine-pseudoep hedrine (ZYRTEC-D) 5-120 mg per tablet Take 1 [...] Encounter Status:Closed by JESSICA WYNN on 08/29/24 [facility] Steven 06-27-2024 [facility] ---- PHI GONZALEZ ([id number]) 1965 M Date Time Provider Department 06/27/24 JUAN R OSULLIVAN During your visit today, we recorded the following information about you: India Miller 06/27/2024 9:53 AM Signed Derik is calling Juan R Osullivan MD today to request an order for labs for his upcoming appointment. Please send a message in Nimbix when labs are ordered. TY Patient has been identified by name and birthdate. Duration of symptoms: N/A Person calling: self Call patient at: at home [phone] (home) [phone] (cell) Was an appointment scheduled: No Closing statement: Results or non-symptom based questions: Thank you for calling [facility], your call will be returned within the next business day. Juan R Meng MD 06/27/2024 11:27 AM Signed Labs ordered to be completed 1-2 days prior to OV. Anthony Curran RN 06/27/2024 11:56 AM Signed Yidio msg sent to pt as requested. Allergies As of Date: 06/27/2024 Noted Allergy Reaction LOSARTAN 05/27/2022 8 - GI Upset SEASONAL ALLERGIES 05/05/2017 14 - Other: See Comments Comments: Watery eyes, cough, and stuffy nose Date Reviewed: 12/05/2023 Reviewed by: Leann Hill LPN - Fully Assessed Reason for Visit: Orders [681] Primary Visit Diagnosis:Type 2 diabetes mellitus with hyperglycemia, unspecified whether terminal makeup operator insulin use (HCC) [E11.65] Order(s):ALBUMIN/CR EATININE RATIO, URINE [SQUACR] Order #: [id number] FUTURE COMPREHENSIVE METABOLIC PANEL [SQCMP] Order #: [id number] FUTURE HEMOGLOBIN A1C [KAWIS7V] Order #: [id number] FUTURE COMPLETE BLOOD COUNT AND DIFFERENTIAL [SQCBCDIF] Order #: [id number] FUTURE LIPID PANEL, NONFASTING [SQLIPNF] Order #: [id number] FUTURE Prescriptions as of 06/27/2024 - empagliflozin [...] filters, tubing, humidifier and lifetime supplies. - cetirizine-pseudoep hedrine (ZYRTEC-D) 5-120 mg per tablet Take 1 [...] Status:Closed by ANTHONY CURRAN on 06/27/24 Normal [facility] CNCOon 05-07-2024 CNCO Letter Text Normal [facility] Albumin/Creatinineon 024 Albumin/Creatinine DL <= 20 mg/L (U) [Mass ratio] 6.2 ug/mg Creat Normal <30.[address] [facility] Comment on above: Performed By: #### 1 4959-1 #### TAO Loza ([id number]) [facility] ([facility]) [address] [place] [address] 12577 Albumin/Creatinine DL <= 20 mg/L (U) [Mass ratio]on 12-22-2023 Albumin DL <= 20 mg/L (U) [Mass/Vol] 10.2 mg/L Normal Not established [facility] Comment on above: Performed By: #### 1 4959-1 #### TAO Loza ([id number]) [facility] ([facility]) [address] [place] [address] 82652 Creatinine (U) [Mass/Vol] 163.9 mg/dL Normal 20.0-370.0 [facility] Comment on above: Performed By: #### 1 4959-1 #### TAO Loza ([id number]) [facility] ([facility]) [address] [place] [address] 79725 CBC W Auto Differential pane l (Bld)on 12-22-2023 Basophils (Bld) [#/Vol] 0.06 x10*3/uL Normal 0.00-0.10 [facility] Comment on above: Performed By: #### 5 7021-8 #### ISABEL MENDEZ ([id number]) [facility] ([facility]) [address] [place] [address] 98389 Basophils/100 WBC (Bld) 0.9 % Normal 0.0-2.0 [facility] Comment on above: Performed By: #### 5 7021-8 #### ISABEL MENDEZ ([id number]) [facility] ([facility]) [address] [place] [address] 61603 Eosinophils (Bld) [#/Vol] 0.27 x10*3/uL Normal 0.00-0.70 [facility] Comment on above: Performed By: #### 5 7021-8 #### ISABEL MENDEZ ([id number]) [facility] ([facility]) [address] [place] [address] 79512 Eosinophils/100 WBC (Bld) 4.1 % Normal 0.0-6.0 [facility] Comment on above: Performed By: #### 5 7021-8 #### ISABEL MENDEZ ([id number]) [facility] ([facility]) [address] [place] [address] 48858 Erythrocyte distribution width (RBC) [Ratio] 12.1 % Normal 11.5-14.5 [facility] Comment on above: Performed By: #### 5 7021-8 #### ISABEL MENDEZ ([id number]) [facility] ([facility]) [address] [place] [address] 06863 Hematocrit (Bld) [Volume fraction] 46.0 % Normal 41.0-52.0 [facility] Comment on above: Performed By: #### 5 7021-8 #### ISABEL MENDEZ ([id number]) [facility] ([facility]) [address] [place] [address] 95068 Hemoglobin (Bld) [Mass/Vol] 15.3 g/dL Normal 13.5-17.5 [facility] Comment on above: Performed By: #### 5 7021-8 #### ISABEL MENDEZ ([id number]) [facility] ([facility]) [address] [place] [address] 54780 Immature granulocytes (Bld) [#/Vol] 0.02 x10*3/uL Normal 0.00-0.70 [facility] Comment on above: Performed By: #### 5 7021-8 #### ISABEL MENDEZ ([id number]) [facility] ([facility]) [address] [place] [address] 14917 Immature granulocytes/100 WBC (Bld) 0.3 % Normal 0.0-0.9 [facility] Comment on above: Result Comment: Debra ture Granulocyte Count (IG) includes promyelocytes, myelocytes and metamyelocytes but does not include bands. Percent differential counts (%) should be interpreted in the context of the absolute cell counts (cells/UL). Performed By: #### 5 7021-8 #### ISABEL MENDEZ ([id number]) [facility] ([facility]) [address] [place] [address] 54774 Lymphocytes (Bld) [#/Vol] 2.00 x10*3/uL Normal 1.20-4.80 [facility] Comment on above: Performed By: #### 5 7021-8 #### ISABEL MENDEZ ([id number]) [facility] ([facility]) [address] [place] [address] 41424 Lymphocytes/100 WBC (Bld) 30.4 % Normal 13.0-44.0 [facility] Comment on above: Performed By: #### 5 7021-8 #### ISABEL MENDEZ ([id number]) [facility] ([facility]) [address] [place] [address] 81600 MCH (RBC) [Entitic mass] 28.9 pg Normal 26.0-34.0 [facility] Comment on above: Performed By: #### 5 7021-8 #### ISABEL MENDEZ ([id number]) [facility] ([facility]) [address] [place] [address] 37592 MCHC (RBC) [Mass/Vol] 33.3 g/dL Normal 32.0-36.0 [facility] Comment on above: Performed By: #### 5 7021-8 #### ISABEL MENDEZ ([id number]) [facility] ([facility]) [address] [place] [address] 30016 MCV (RBC) [Entitic vol] 87 fL Normal 80-100 [facility] Comment on above: Performed By: #### 5 7021-8 #### ISABEL MENDEZ ([id number]) [facility] ([facility]) [address] [place] [address] 54150 Monocytes (Bld) [#/Vol] 0.35 x10*3/uL Normal 0.10-1.00 [facility] Comment on above: Performed By: #### 5 7021-8 #### ISABEL MENDEZ ([id number]) [facility] ([facility]) [address] [place] [address] 25404 Monocytes/100 WBC (Bld) 5.3 % Normal 2.0-10.0 [facility] Comment on above: Performed By: #### 5 7021-8 #### ISABEL MENDEZ ([id number]) [facility] ([facility]) [address] [place] [address] 95542 Neutrophils (Bld) [#/Vol] 3.87 x10*3/uL Normal 1.20-7.70 [facility] Comment on above: Result Comment: Perc ent differential counts (%) should be interpreted in the context of the absolute cell counts (cells/uL). Performed By: #### 5 7021-8 #### ISABEL MENDEZ ([id number]) [facility] ([facility]) [address] [place] [address] 49382 Neutrophils/100 WBC (Bld) 59.0 % Normal 40.0-80.0 [facility] Comment on above: Performed By: #### 5 7021-8 #### ISABEL MENDEZ ([id number]) [facility] ([facility]) [address] [place] [address] 55573 Nucleated RBC/100 WBC (Bld) [Ratio] 0.0 /100 WBCs Normal 0.0-0.0 [facility] Comment on above: Performed By: #### 5 7021-8 #### ISABEL MENDEZ ([id number]) [facility] ([facility]) [address] [place] [address] 24887 Platelets (Bld) [#/Vol] 272 x10*3/uL Normal 150-450 [facility] Comment on above: Performed By: #### 5 7021-8 #### ISABEL MENDEZ ([id number]) [facility] ([facility]) [address] [place] [address] 72844 RBC (Bld) [#/Vol] 5.30 x10*6/uL Normal 4.50-5.90 [facility] Comment on above: Performed By: #### 5 7021-8 #### ISABEL MENDEZ ([id number]) [facility] ([facility]) [address] [place] [address] 88392 WBC (Bld) [#/Vol] 6.6 x10*3/uL Normal 4.4-11.3 [facility] Comment on above: Performed By: #### 5 7021-8 #### ISABEL MENDEZ ([id number]) [facility] ([facility]) [address] [place] [address] 25548 Cholesterol in LDL Direct as say [Mass/Vol]on 12-22-2023 Cholesterol in LDL [Mass/Vol] 110 mg/dL Normal 0-129 [facility] Comment on above: Order Comment: Thorp felicia levels of LDL cholesterol are recognized as a cleveland factor in the development of atherosclerosis and CHD. The direct LDL cholesterol test can be used to assess cardiovascular risk and monitor therapy as a follow up to a lipid profile when triglycerides are significantly elevated. Performed By: #### 1 8262-6 #### TAO Loza ([id number]) [facility] ([facility]) [address] [place] [address] Comprehensive metabolic 2000 panelon 12-22-2023 Albumin BCP dye [Mass/Vol] 3.9 g/dL Normal 3.4-5.0 [facility] Comment on above: Performed By: #### 2 4323-8 #### ISABEL MENDEZ ([id number]) [facility] ([facility]) [address] [place] [address] 24108 ALP [Catalytic activity/Vol] 56 U/L Normal 33-120 [facility] Comment on above: Performed By: #### 2 4323-8 #### ISABEL MENDEZ ([id number]) [facility] ([facility]) [address] [place] [address] 71575 ALT With P-5'-P [Catalytic activity/Vol] 22 U/L Normal 10-[address] [facility] Comment on above: Result Comment: Ofelia ents treated with Sulfasalazine may generate falsely decreased results for ALT. Performed By: #### 2 4323-8 #### ISABEL MENDEZ ([id number]) [facility] ([facility]) [address] [place] [address] 95764 Anion gap [Moles/Vol] 11 mmol/L Normal 10-20 [facility] Comment on above: Performed By: #### 2 4323-8 #### ISABEL MENDEZ ([id number]) [facility] ([facility]) [address] [place] [address] 17708 AST With P-5'-P [Catalytic activity/Vol] 14 U/L Normal 9-[address] [facility] Comment on above: Performed By: #### 2 4323-8 #### ISABEL MENDEZ ([id number]) [facility] ([facility]) [address] [place] [address] 37185 Bilirubin [Mass/Vol] 0.7 mg/dL Normal 0.0-1.2 [facility] Comment on above: Performed By: #### 2 432-8 #### ISABEL MENDEZ ([id number]) [facility] ([facility]) [address] [place] [address] 83790 Calcium [Mass/Vol] 9.1 mg/dL Normal 8.6-10.3 [facility] Comment on above: Performed By: #### 2 432-8 #### ISABEL MENDEZ ([id number]) [facility] ([facility]) [address] [place] [address] 49407 Chloride [Moles/Vol] 103 mmol/L Normal 98-107 [facility] Comment on above: Performed By: #### 2 432-8 #### ISABEL MENDEZ ([id number]) [facility] ([facility]) [address] [place] [address] 68888 CO2 [Moles/Vol] 26 mmol/L Normal 21-32 [facility] Comment on above: Performed By: #### 2 4323-8 #### ISABEL MENDEZ ([id number]) [facility] ([facility]) [address] [place] [address] 41000 Creatinine [Mass/Vol] 0.87 mg/dL Normal 0.50-1.30 [facility] Comment on above: Performed By: #### 2 4323-8 #### ISABEL MENDEZ ([id number]) [facility] ([facility]) [address] [place] [address] 24755 GFR/1.73 sq M.predicted MDRD (S/P/Bld) [Vol rate/Area] mL/min/{1.73_m2} Normal >60 [facility] Comment on above: Result Comment: Calc ulations of estimated GFR are performed using the 2020 CKD-EPI Study Refit equation without the race variable for the IDMS-Traceable creatinine methods. https://jasn.asnjournals.org/content/early//ASN.795 5312065 Performed By: #### 2 4323-8 #### ISABEL MENDEZ ([id number]) [facility] ([facility]) [address] [place] [address] 84658 Glucose [Mass/Vol] 217 mg/dL High 74-99 [facility] Comment on above: Performed By: #### 2 4323-8 #### ISABEL MENDEZ ([id number]) [facility] ([facility]) [address] [place] [address] 22056 Potassium [Moles/Vol] 3.8 mmol/L Normal 3.5-5.3 [facility] Comment on above: Performed By: #### 2 4323-8 #### ISABEL MENDEZ ([id number]) [facility] ([facility]) [address] [place] [address] 17540 Protein [Mass/Vol] 7.1 g/dL Normal 6.4-8.2 [facility] Comment on above: Performed By: #### 2 4323-8 #### ISABEL MENDEZ ([id number]) [facility] ([facility]) [address] [place] [address] 91769 Sodium [Moles/Vol] 136 mmol/L Normal 136-145 [facility] Comment on above: Performed By: #### 2 4323-8 #### ISABEL MENDEZ ([id number]) [facility] ([facility]) [address] [place] [address] 39123 Urea nitrogen [Mass/Vol] 15 mg/dL Normal 6-23 [facility] Comment on above: Performed By: #### 2 4323-8 #### HALL ANDREA ([id number]) [facility] ([facility]) [address] [id number] HbA1c (Bld) [Mass fraction]o n 12-22-2023 Average glucose Estimated from glycated hemoglobin (Bld) [Mass/Vol] 278 mg/dL Normal Not Established [facility] Comment on above: Order Comment: Diagn osis of Diabetes-Adults Non-Diabetic: < or = 5.6% Increased risk for developing diabetes: 5.7-6.4% Diagnostic of diabetes: > or = 6.5% Monitoring of Diabetes Age (y)....................... Therapeutic Goal (%) Adults: >18.........................<7.0 Pediatrics: 13-18...................<7.5 Pediatrics: 7-12....................<8.0 Pediatrics: 0-6..................... 7.5-8.5 [place] Diabetes Association. Diabetes Care 33(S1), Jul 2009 Performed By: #### 4 548-4 #### HALL ANDREA ([id number]) [facility] ([facility]) [address] [place], [place] [id number] Hemoglobin A1c/Hemoglobin.to yamileth 12-22-2023 HbA1c (Bld) [Mass fraction] 11.3 % High see below [facility] Comment on above: Order Comment: Diagn osis of Diabetes-Adults Non-Diabetic: < or = 5.6% Increased risk for developing diabetes: 5.7-6.4% Diagnostic of diabetes: > or = 6.5% Monitoring of Diabetes Age (y)....................... Therapeutic Goal (%) Adults: >18.........................<7.0 Pediatrics: 13-18...................<7.5 Pediatrics: 7-12....................<8.0 Pediatrics: 0-6..................... 7.5-8.5 Citizen [place] Diabetes Association. Diabetes Care 33(S1), Jul 2009 Performed By: #### 4 548-4 #### ISABEL MENDEZ ([id number]) [facility] ([facility]) [facility] [place] [address] Lipid 1996 panelon 4 Cholesterol [Mass/Vol] 155 mg/dL Normal 0-199 [facility] Comment on above: Result Comment: Age [...] By: #### 2 4331-1 #### ISABEL MENDEZ ([id number]) [facility] ([facility]) [address] [place] [address] 26057 Cholesterol in HDL [Mass/Vol] 32.0 mg/dL Normal [facility] Comment on above: Result Comment: Age Very Low Low Normal High 0-19 Y < 35 < 40 40-45 ---- 20-24 Y ---- < 40 >45 ---- >24 Y ---- < 40 40-60 >60 Performed By: #### 2 4331-1 #### ISABEL MENDEZ ([id number]) [facility] ([facility]) [facility] [place] [address] Cholesterol in LDL [Mass/Vol] 86 mg/dL Normal <=99 [facility] Comment on above: Result Comment: Near Borderline AGE Desirable Optimal High High Very High 0-19 Y 0 - 109 --- 110-129 >/= 130 ---- 20-24 Y 0 - 119 --- 120-159 >/= 160 ---- >24 Y 0 - 99 100-129 130-159 160-189 >/=190 Performed By: #### 2 4331-1 #### ISABEL MENDEZ ([id number]) [facility] ([facility]) [address] [place] [address] Cholesterol in VLDL [Mass/Vol] 37 mg/dL Normal 0-40 [facility] Comment on above: Performed By: #### 2 4331-1 #### ISABEL MENDEZ ([id number]) [facility] ([facility]) [address] [place] [address] CHOLESTEROL/HDL RATIO 4.8 Normal [facility] Comment on above: Result Comment: Ref Values Desirable < 3.4 High Risk > 5.0 Performed By: #### 2 4331-1 #### ISABEL MENDEZ ([id number]) [facility] ([facility]) [address] [place] [address] NON HDL CHOLESTEROL 123 mg/dL Normal 0-149 [facility] Comment on above: Result Comment: Age Desirable Borderline High High Very High 0-19 Y 0 - 119 120 - 144 >/= 145 >/= 160 20-24 Y 0 - 149 150 - 189 >/= 190 ---- >24 Y 30 mg/dL above LDL Cholesterol goal Performed By: #### 2 4331-1 #### ISABEL MENDEZ ([id number]) [facility] ([facility]) [facility] [place] [address] Triglyceride [Mass/Vol] 186 mg/dL High 0-149 [facility] Comment on above: Result Comment: Age [...] dosing. Performed By: #### 2 4331-1 #### HALL ANDREA ([id number]) [facility] ([facility]) [address] [place] [address] CBC panel Auto (Bld)on 05-27 Erythrocyte distribution width (RBC) [Ratio] 12.2 % 11.5 - 15.0 % [facility] Hematocrit (Bld) [Volume fraction] 50.3 % 39.0 - 51.0 % [facility] Hemoglobin (Bld) [Mass/Vol] 16.8 g/dL 13.0 - 17.0 g/dL [facility] MCH (RBC) [Entitic mass] 29.4 pg 26.0 - 34.0 pg [facility] MCHC (RBC) [Mass/Vol] 33.4 g/dL 30.5 - 36.0 g/dL [facility] MCV (RBC) [Entitic vol] 88.1 fL 80.0 - 100.0 fL [facility] Nucleated RBC (Bld) [#/Vol] <0.01 k/uL [facility] Platelet mean volume (Bld) [Entitic vol] 9.4 fL 9.0 - 12.7 fL [facility] Platelets (Bld) [#/Vol] 274 10*3/uL 150 - 400 k /uL [facility] RBC (Bld) [#/Vol] 5.71 10*6/uL 4.20 - 6.0 0 m/uL [facility] WBC (Bld) [#/Vol] 10.76 10*3/uL 3.70 - 11 .00 k/uL [facility] Vital Signs Date Time Vital Sign Value Performing Clinician Scar nicole 04-08-2025 12:20-0400 Body temperature 98.4 [degF] Dr. Benitez Bianchi MD [facility] 04-08-2025 12:20-0400 Diastolic blood pressure 80 mm[Hg] Dr. Benitez Bianchi MD [facility] 04-08-2025 12:20-0400 Heart rate 78 /min Dr. Benitez Bianchi MD [facility] 04-08-2025 12:20-0400 Respiratory rate 16 /min Dr. Benitez Bianchi MD [facility] 04-08-2025 12:20-0400 SaO2% (BldA) [Mass fraction] 98 % Dr. Benitez Bianchi MD [facility] 04-08-2025 12:20-0400 Systolic blood pressure 113 mm[Hg] Dr. Benitez Bianchi MD [facility] 04-08-2025 10:49-0400 Body height 172.[address] Benitez Bianchi MD [facility] 04-08-2025 10:49-0400 Body mass index (BMI) [Ratio] 37.6 kg/m2 Dr. Benitez Bianchi MD [facility] 04-08-2025 10:49-0400 Body weight 112.[address] Benitez Bianchi MD [facility] 04-01-2025 14:49-0400 Body height 172.[address] Benitez Bianchi MD [facility] 04-01-2025 14:49-0400 Body mass index (BMI) [Ratio] 38.2 kg/m2 Dr. Benitez Bianchi MD [facility] 04-01-2025 14:49-0400 Body temperature 92.8 [degF] Dr. Benitez Bianchi MD [facility] 04-01-2025 14:49-0400 Body weight 113.[address] Benitez Bianchi MD [facility] 04-01-2025 14:49-0400 Diastolic blood pressure 74 mm[Hg] Dr. Benitez Bianchi MD [facility] 04-01-2025 14:49-0400 Heart rate 71 /min Dr. Benitez Bianchi MD [facility] 04-01-2025 14:49-0400 Respiratory rate 16 /min Dr. Benitez Bianchi MD [facility] 04-01-2025 14:49-0400 SaO2% (BldA) [Mass fraction] 96 % Dr. Benitez Bianchi MD [facility] 04-01-2025 14:49-0400 Systolic blood pressure 121 mm[Hg] Dr. Benitez Bianchi MD [facility] 03-28-2025 10:10-0400 Body height 172.[address] Benitez Bianchi MD [facility] 03-28-2025 10:10-0400 Body mass index (BMI) [Ratio] 38.3 kg/m2 Dr. Benitez Bianchi MD [facility] 03-28-2025 10:10-0400 Body temperature 97.8 [degF] Dr. Benitez Bianchi MD [facility] 03-28-2025 10:10-0400 Body weight 114.[address] Benitez Bianchi MD [facility] 03-28-2025 10:10-0400 Diastolic blood pressure 92 mm[Hg] Dr. Benitez Bianchi MD [facility] 03-28-2025 10:10-0400 Heart rate 80 /min Dr. Benitez Bianchi MD [facility] 03-28-2025 10:10-0400 Respiratory rate 18 /min Dr. Benitez Bianchi MD [facility] 03-28-2025 10:10-0400 SaO2% (BldA) [Mass fraction] 97 % Dr. Benitez Bianchi MD [facility] 03-28-2025 10:10-0400 Systolic blood pressure 163 mm[Hg] Dr. Benitez Bianchi MD [facility] 03-26-2025 15:15-0400 Diastolic blood pressure 94 mm[Hg] Juan R Osullivan MD Work Phone: [facility] 03-26-2025 15:15-0400 Systolic blood pressure 134 mm[Hg] Juan R Osullivan MD Work Phone: [facility] 03-26-2025 14:36-0400 Body height 173.5 cm Juan R Osullivan MD Work Phone: [facility] 03-26-2025 14:36-0400 Body mass index (BMI) [Ratio] 38.24 kg/m2 Juan R Osullivan MD Work Phone: [facility] 03-26-2025 14:36-0400 Body weight 115.12 kg Juan R Osullivan MD Work Phone: [facility] 03-26-2025 14:36-0400 Heart rate 79 /min Juan R Osullivan MD Work Phone: [facility] 03-26-2025 14:36-0400 SaO2% (BldA) [Mass fraction] 98 % Juan R Osullivan MD Work Phone: [facility] 03-19-2025 10:39-0400 Body height 172.[address] Benitez Bianchi MD [facility] 03-19-2025 10:39-0400 Body weight 115.[address] Benitez Bianchi MD [facility] 03-19-2025 08:38-0400 Body temperature 97.4 [degF] Dr. Benitez Bianchi MD [facility] 03-19-2025 08:38-0400 Diastolic blood pressure 77 mm[Hg] Dr. Benitez Bianchi MD [facility] 03-19-2025 08:38-0400 Heart rate 71 /min Dr. Benitez Bianchi MD [facility] 03-19-2025 08:38-0400 Respiratory rate 18 /min Dr. Benitez Bianchi MD [facility] 03-19-2025 08:38-0400 SaO2% (BldA) [Mass fraction] 99 % Dr. Benitez Bianchi MD [facility] 03-19-2025 08:38-0400 Systolic blood pressure 133 mm[Hg] Dr. Benitez Bianchi MD [facility] 03-19-2025 06:00-0400 Body mass index (BMI) [Ratio] 38.6 kg/m2 Dr. Benitez Bianchi MD [facility] 03-15-2025 14:14-0400 Body mass index (BMI) [Ratio] 39.03 kg/m2 Ingrid Huerta [employer] WELLNESS DIRECTOR Work Phone: [facility] 03-15-2025 14:14-0400 Body temperature 97.81 [degF] Ingrid Huerta [employer] AND WELLNESS DIRECTOR Work Phone: [facility] 03-15-2025 14:14-0400 Body weight 117.5 kg Ingrid Huerta [employer] FITNESS AND WELLNESS DIRECTOR Work Phone: [facility] 03-15-2025 14:14-0400 Diastolic blood pressure 100 mm[Hg] Ingrid Huerta [employer]ER.[employer] FITNESS AND WELLNESS DIRECTOR Work Phone: [facility] 03-15-2025 14:14-0400 Heart rate 79 /min Ingrid Huerta [employer]ER.[employer] FITNESS AND WELLNESS DIRECTOR Work Phone: [facility] 03-15-2025 14:14-0400 Respiratory rate 18 /min Ingrid Huerta [employer] B[employer]ER.[employer]OR[employer] FITNESS AND WELLNESS DIRECTOR Work Phone: [facility] 03-15-2025 14:14-0400 SaO2% (BldA) [Mass fraction] 99 % Ingrid Huerta [employer] FITNESS AND WELLNESS DIRECTOR Work Phone: [facility] 03-15-2025 14:14-0400 Systolic blood pressure 151 mm[Hg] Ingrid Huerta [employer] AND WELLNESS DIRECTOR Work Phone: [facility] 12-05-2023 14:47-0400 Body mass index (BMI) [Ratio] 39.84 kg/m2 India Podlogar [employer] AND WELLNESS DIRECTOR Work Phone: [facility] 12-05-2023 14:47-0400 Body weight 119.93 kg India Podlogar [employer] FITNESS AND WELLNESS DIRECTOR Work Phone: [facility] 12-05-2023 14:47-0400 Diastolic blood pressure 86 mm[Hg] India Podlogar [employer] FITNESS AND WELLNESS DIRECTOR Work Phone: [facility] 12-05-2023 14:47-0400 Heart rate 85 /min India Podlogar [employer] FITNESS AND WELLNESS DIRECTOR Work Phone: [facility] 12-05-2023 14:47-0400 Respiratory rate 18 /min India Podlogar [employer] FITNESS AND WELLNESS DIRECTOR Work Phone: [facility] 12-05-2023 14:47-0400 SaO2% (BldA) [Mass fraction] 96 % India Podlogar [employer] FITNESS AND WELLNESS DIRECTOR Work Phone: [facility] 12-05-2023 14:47-0400 Systolic blood pressure 128 mm[Hg] India Podlogar [employer] FITNESS AND WELLNESS DIRECTOR Work Phone: [facility] 05-27-2022 13:23-0400 Body height 173.5 cm Juan R Osullivan MD Work Phone: [facility] 05-27-2022 13:23-0400 Body weight 125.47 kg Juan R Osullivan MD Work Phone: [facility] 05-27-2022 13:23-0400 Diastolic blood pressure 78 mm[Hg] Juan R Osullivan MD Work Phone: [facility] 05-27-2022 13:23-0400 Heart rate 89 /min Juan R Osullivan MD Work Phone: [facility] 05-27-2022 13:23-0400 Respiratory rate 16 /min Juan R Osullivan MD Work Phone: [facility] 05-27-2022 13:23-0400 SaO2% (BldA) [Mass fraction] 96 % Juan R Osullivan MD Work Phone: [facility] 05-27-2022 13:23-0400 Systolic blood pressure 150 mm[Hg] Juan R Osullivan MD Work Phone: [facility] 11-04-2021 13:50-0400 Diastolic blood pressure 94 mm[Hg] India Podlogar [employer] AND WELLNESS DIRECTOR Work Phone: [facility] 11-04-2021 13:50-0400 Heart rate 88 /min India Podlogar [employer] FITNESS AND WELLNESS DIRECTOR Work Phone: [facility] 11-04-2021 13:50-0400 Systolic blood pressure 149 mm[Hg] India Podlogar [employer]OR[employer] FITNESS AND WELLNESS DIRECTOR Work Phone: [facility] 11-04-2021 13:12-0400 Body weight 121.66 kg India Podlogar [employer] FITNESS AND WELLNESS DIRECTOR Work Phone: [facility] 11-04-2021 13:12-0400 Respiratory rate 18 /min India Podlogar [employer] B[employer]ER.[employer]OR[employer] FITNESS AND WELLNESS DIRECTOR Work Phone: [facility] 11-04-2021 13:120400 SaO2% (BldA) [Mass fraction] 96 % India Tavares APRN.[employer]ORTS FITNESS AND WELLNESS DIRECTOR Work Phone: [facility] Encounters Encounter Date Encounter Type Care Provider Facility Start: 04-11-2025 ambulatory Fadi Caceres Facility: [facility] Start: 04-08-2025 ambulatory Saejozef Wilburn Facility :[facility] Start: 04-08-2025 Non-patient / Non-visit Saejozef Haile mu DO -[facility] Start: 04-08-2025 End: 04-08-2025 Admission to same day surgery center Saejozef Wilburn DO -Endoscopy Work Phone: Start: 04-08-2025 End: 04-08-[address] Benitez Bianchi MD -Endoscopy Start: 04-01-2025 End: 04-01-[address] Benitez Bianchi MD -[facility] Start: 04-01-2025 End: 04-01-2025 Patient encounter procedure Klarissa WALTON -[facility] Work Phone: Start: 03-28-2025 End: 03-28-2025 Follow-up encounter Juan R Osullivan MD Work Phone: [facility] Start: 03-28-2025 End: 03-28-[address] Fadi Caceres MD -[facility] Work Phone: Start: 03-28-2025 End: 03-28-[address] Benitez Bianchi MD [facility] Start: 03-27-2025 End: 03-28-2025 Telephone encounter Trevor Martinez [facility] Comment on above: Primary Care Pharmac y Appt Start: 03-26-2025 End: 03-26-2025 ambulatory JUAN R OSULLIVAN Facility:[facility] Start: 03-26-2025 End: 03-26-2025 Patient encounter procedure Juan R Osullivan MD Work Phone: [facility] Comment on above: Acute diverticulitis (Primary Dx); Ischemic colitis (HCC); Acute constipation; Type 2 diabetes mellitus with hyperglycemia, with long-term current use of insulin (HCC); Essential hypertension; Pure hypercholesterolemia; SILVANO (obstructive sleep apnea) Start: 03-26-2025 End: 03-26-2025 ambulatory JUAN R OSULLIVAN Facility:[facility] Start: 03-21-2025 End: 03-21-2025 Telephone encounter Juan R Osullivan MD Work Phone: [facility] Comment on above: Transition Of Care Start: 03-19-2025 Non-patient / Non-visit Dr. Belen Tian MD -[facility] Work Phone: Start: 03-19-2025 Non-patient / Non-visit Ele Riley PA-C -[facility] Start: 03-18-2025 Non-patient / Non-visit Sae Haile nd, [facility] Start: 03-18-2025 Non-patient / Non-visit Dr. Belen Tian MD -[facility] Work Phone: Start: 03-17-2025 Non-patient / Non-visit Dr. [place] Caceres MD -[facility] Start: 03-17-2025 Non-patient / Non-visit Dr. Benitez srinivasan MD -[facility] Work Phone: Start: 03-17-2025 ambulatory Henrry Tian Fac ility:[facility] Start: 03-17-2025 End: 03-19-2025 Evaluation and management of inpatient Dr. Henrry Tian MD -[facility] Work Phone: Start: 03-17-2025 End: 03-17-2025 Emergency department patient visit JUAN R OSULLIVAN [facility] Start: 03-15-2025 End: 03-15-2025 Patient encounter procedure Ingrid Huerta APRN.[employer] WELLNESS DIRECTOR Work Phone: [facility] Comment on above: Acute constipation ( Primary Dx); Essential (primary) hypertension; Gastro-esophageal reflux disease without esophagitis; Type 2 diabetes mellitus without complication, unspecified whether residential insulin use (HCC) Start: 03-15-2025 End: 03-15-2025 Subsequent hospital visit by physician Corie [facility] Work Phone: Radiology Comment on above: Acute constipation [ K59.00] Start: 03-15-2025 End: 03-15-2025 ambulatory JUAN R OSULLIVAN Facility:[facility] Start: 10-18-2024 End: 10-18-2024 Nursing evaluation of patient and report Daniele Mckeon RN Work Phone: Diabetic Education [facility] Comment on above: Type 2 diabetes jayme itus with hyperglycemia, unspecified whether terminal makeup operator insulin use (HCC) Start: 10-18-2024 End: 10-18-2024 ambulatory Daniele Mckeon RN Work Phone: Diabetic Education [facility] Comment on above: contact information Start: 10-18-2024 End: 10-18-2024 E-mail encounter from caregiver Daniele Mckeon RN Work Phone: Diabetic Education [facility] Start: 09-19-2024 End: 09-20-2024 Refill Juan R [...] Juan R Osullivan MD Work Phone: Family [facility] [place] Comment on above: Refill Request Start: 04-17-2024 End: 04-17-2024 Refill Juan R Osullivan MD Work Phone: [facility] [place] Comment on above: Refill Request Start: 03-06-2024 End: 03-12-2024 Patient Msg [facility] Provider [facility] Comment on above: Need lab orders Lab Orders Start: 02-14-2024 E-mail encounter fro m caregiver [facility] Work Phone: [facility] Start: 02-14-2024 Patient encounter procedure [facility] Work Phone: [facility] Comment on above: Primary Care Pharmac ist Visit Start: 02-02-2024 Telephone encounter [facility] Work Phone: [facility] Comment on above: Missed Appointment ( Pharmacy Visit Rescheduling) Start: 01-27-2024 Telephone encounter India cast APRN.[employer]OR[employer] FITNESS AND WELLNESS DIRECTOR Work Phone: [facility] Comment on above: Medication Problem ( Patient states that the insulin pen needles were not sent to the pharmacy. Please send script over to his pharmacy ) Start: 12-26-2023 Telephone encounter Pharmacist [facility] Comment on above: Appointment (Primary Care Pharmacy) Start: 12-22-2023 End: 12-22-2023 ambulatory [facility] Start: 12-13-2023 Telephone encounter Pepe Osullivan MD Work Phone: [facility] [place] Comment on above: CPAP order Start: 12-05-2023 End: 12-05-2023 Patient encounter procedure India Tavares APRN.[employer] AND WELLNESS DIRECTOR Work Phone: [facility] [place] Comment on above: Annual physical exam (Primary Dx); Type 2 diabetes mellitus without complication, without long-term current use of insulin (HCC); Elevated triglycerides with high cholesterol; Essential hypertension; Hyperlipidemia, mixed; SILVANO (obstructive sleep apnea); Depression screening Start: 04-12-2023 End: 04-12-2023 ambulatory India Tavares APRN.[employer]OR[employer] FITNESS AND WELLNESS DIRECTOR Work Phone: [facility] [place] Comment on above: Irritant contact ashley matitis, unspecified trigger (Primary Dx) Start: 04-12-2023 End: 04-12-2023 Telemedicine consultation with patient India Chaitanya RESTREPOSPORTS FITNESS AND WELLNESS DIRECTOR Work Phone: [facility] Start: 06-22-2022 Refill Juan R Osullivan MD Work Phone: [facility] Comment on above: Refill Request Start: 06-01-2022 Telephone encounter Pepe Osullivan MD Work Phone: [facility] Comment on above: Erroneous encounter- disregard Start: 05-27-2022 End: 05-27-2022 Patient encounter procedure Juan R Osullivan MD Work Phone: [facility] Comment on above: Annual physical exam (Primary [...] cancer Start: 11-06-2021 Telephone encounter India cast APRN.CNP Work Phone: [facility] Comment on above: Results Start: 11-04-2021 End: 11-04-2021 Patient encounter procedure India Tavares APRN.[employer] AND WELLNESS DIRECTOR Work Phone: [facility] Comment on above: Type 2 diabetes jayme itus without complication, without long- term current use of insulin (HCC) (Primary Dx); Hypertension, essential; SILVANO (obstructive sleep apnea) Procedures Date Procedure Procedure Detail Performing Clinician Start: 04-08-[address] Benitez Bianchi MD Start: 03-19-[address] Benitez Bianchi MD Start: 03-18-[address] Benitez Bianchi MD Start: 03-17-2025 CT of abdomen and pe lvis without contrast Dr. Benitez Bianchi MD Start: 03-17-2025 Serum inorganic phos phate measurement Dr. Benitez Bianchi MD Start: 03-17-2025 Computed tomography of abdomen and pelvis with contrast Dr. Benitez Bianchi MD Start: 03-15-2025 Radiologic exam abdo men 2 views Ingrid Huerta FR[employer]CH C[employer] B[employer]ER.[employer] AND WELLNESS DIRECTOR Work Phone: Start: 12-05-2023 Adult depression scr eening assessment [facility] Provider Start: 05-27-2022 INFLUENZA VACCINE QUADRIVALENT 6 MO - 64 YRS IM Juan R Osullivan MD Work Phone: Start: 03-06-2021 Adult depression scr eening assessment India Tavares [employer] B[employer]ER.[employer] FITNESS AND WELLNESS DIRECTOR Work Phone: Start: 09-22-2017 Colonoscopy India cast [employer] B[employer]ER.[employer]ORTS FITNESS AND WELLNESS DIRECTOR Work Phone: Plan of Treatment Date Care Activity Detail Author Start: 09-23-2027 Colonoscopy COLONOSCOPY [facility] Start: 09-23-2027 COLORECTAL CANCER SCREENING COLORECTAL CANCER SCREENING [facility] Start: 09-23-2027 Screening for malignant neoplasm of colon [facility] Start: 05-27-2027 PROSTATE CANCER SCREENING DISCUSSION PROSTATE CANCER SCREENING DISCUSSION [facility] Start: 05-27-2027 Prostate specific antigen measurement Prostate Cancer Screening Discussion [facility] Start: 05-05-2027 Urine microalbumin profile [facility] Start: 03-26-2026 Annual PCP Team Chronic Disease Visit Annual PCP Team Chronic Disease Visit [facility] Start: 03-26-2026 Hepatitis B screening Urine Albumin:Creatinine Ratio [facility] Start: 03-26-2026 Hepatitis B surface antibody level LDL Cholesterol [facility] Start: 04-08-2025 Patient discharge [facility] Start: 03-26-2025 End: 03-26-2025 Patient encounter procedure 03/26/2025 2:20 PM EDT Office Visit [facility] [address] [place] [id number] Juan R Osullivan MD [address] [place] [id number] [facility] Comment on above: TCM Start: 03-26-2025 End: 06-25-2025 CBC W Auto Differential panel - Blood [facility] Comment on above: Expected: 03/26/2025, Expires: Start: 03-26-2025 End: 06-25-2025 Comprehensive metabolic 2000 panel - Serum or Plasma [facility] Work Phone: Comment on above: Expected: 03/26/2025, Expires: Start: 03-26-2025 End: 06-25-2025 LIPID PANEL, NONFASTING [facility] Comment on above: Expected: 03/26/2025, Expires: Start: 03-26-2025 End: 06-25-2025 Microalbumin/Creatinine [Mass Ratio] in Urine [facility] Comment on above: Expected: 03/26/2025, Expires: Start: 03-25-2025 Influenza vaccination Influenza Vaccine (#1) [facility] Start: 03-19-2025 Patient discharge [facility] Start: 03-19-2025 End: 03-19-2025 Patient encounter procedure 03/19/2025 7:20 AM EDT Office Visit [facility] [address] [place] [address] Juan R Osullivan MD [address] [place], [place] [phone] ov to discuss recommendations by DM educator and routine [facility] Comment on above: ov to discuss recommendations by DM educ ator and routine Start: 03-19-2025 Patient referral to dietitian [facility] Start: 03-18-2025 [facility] Start: 03-17-2025 Care regimes management [facility] Start: 03-17-2025 Notification of physician [facility] Start: 03-17-2025 Application of intermittent pneumatic compression device [facility] Start: 03-17-2025 Ambulation without limitation [facility] Start: 03-17-2025 Assessment of risk of venous thromboembolism [facility] Start: 03-17-2025 Catheterization of vein [facility] Start: 03-17-2025 Insertion of catheter into peripheral vein [facility] Start: 03-17-2025 Measuring intake and output [facility] Start: 03-17-2025 Providing care according to standard [facility] Start: 03-17-2025 Referral to gastroenterology service [facility] Start: 03-17-2025 Referral to general surgeon [facility] Start: 03-17-2025 End: 03-17-2025 [facility] Start: 03-17-2025 Following clinical pathway protocol [facility] Start: 03-17-2025 Admission procedure [facility] Start: 12-21-2024 Hepatitis B screening Urine Albumin:Creatinine Ratio [facility] Start: 12-21-2024 Hepatitis B surface antibody level LDL Cholesterol [facility] Start: 12-04-2024 Annual PCP Team Chronic Disease Visit Annual PCP Team Chronic Disease Visit [facility] Start: 12-04-2024 Anxiety Screening Anxiety Screening [facility] Start: 12-04-2024 Depression Screening Depression Screening [facility] Start: 12-04-2024 Diabetic foot examination Diabetic Foot Exam [facility] Start: 11-22-2024 End: 11-22-2024 ambulatory 11/22/2024 9:00 AM EDT [facility] Diabetic Education [facility] [address] [place] [id number] [place] [address] [place] [address] uncontrolled diabetes Diabetic [facility] Comment on above: uncontrolled diabetes Start: 10-26-2024 End: 10-26-2024 Nursing evaluation of patient and report 10/26/2024 3:00 PM EDT Nurse Visit Diabetic Education [facility] [address] [place] [id number] [place] [address] [address] [place] [id number] follow up Diabetic Education [facility] Comment on above: follow up Start: 10-24-2024 End: 10-24-2024 Patient encounter procedure 10/24/2024 3:20 PM EDT Office Visit [facility] [address] [place] [address] India Tavares APRN.[employer] AND WELLNESS DIRECTOR [address] [place] [address] past due 3 month follow up Althea Moyer Comment on above: past due 3 month follow up Start: 10-01-2024 End: 10-01-2024 Patient encounter procedure 10/01/2024 1:40 PM EDT Office Visit Family Althea Moyer [address] [place] [address] PodIndia breen APRN.[employer]OR[employer] FITNESS AND WELLNESS DIRECTOR [address] [place] [address] past due 3 month follow up Althea Moyer Comment on above: past due 3 month follow up Start: 09-03-2024 End: 09-03-2024 Patient encounter procedure 09/03/2024 2:40 PM EST Office Visit [facility] Althea Moyer [address] [place] [address] India Tavares, ANDRES.SPORTS FITNESS AND WELLNESS DIRECTOR [address] [place] [address] past due 3 month follow up Althea Moyer Comment on above: past due 3 month follow up Start: 08-30-2024 End: 08-30-2024 ambulatory 08/30/2024 7:45 AM EST Results Only [facility] [address] [place] [address] [facility] Start: 07-10-2024 End: 07-10-2024 Nursing evaluation of patient and report 07/10/2024 3:00 PM EST Nurse Visit Endocrinology [address] [place] [address] Benitez Patricio, RN [address] [address] Controlling my blood sugar and working with meds Endocrinology Comment on above: Controlling my blood sugar and working w [facility] meds Start: 07-02-2024 End: 07-02-2024 Patient encounter procedure 07/02/2024 7:20 AM EST Office Visit Family Althea Moyer [address] [place] [address] India Tavares APRN.SPOR[employer] FITNESS AND WELLNESS DIRECTOR [address] [facility] [place] [address] follow up DM [facility] Comment on above: follow up DM Start: 06-29-2024 End: 06-29-2024 ambulatory 06/29/2024 8:45 AM EST Results Only [facility] [address] [place] [address] [facility] Start: 06-27-2024 End: 09-26-2024 CBC W Auto Differential panel - Blood COMPLETE BLOOD COUNT AND DIFFERENTIAL Lab Routine Type 2 diabetes mellitus with hyperglycemia, unspecified whether residential insulin use (HCC) Expected: 06/27/2024, Expires: 09/26/2024 [facility] Comment on above: Expected: 06/27/2024, Expires: Start: 06-27-2024 End: 09-26-2024 Comprehensive metabolic 2000 panel - Serum or Plasma COMPREHENSIVE METABOLIC PANEL Lab Routine Type 2 diabetes mellitus with hyperglycemia, unspecified whether terminal makeup operator insulin use (HCC) Expected: 06/27/2024, Expires: 09/26/2024 [facility] Comment on above: Expected: 06/27/2024, Expires: Start: 06-27-2024 End: 09-26-2024 Hemoglobin A1c in Blood HEMOGLOBIN A1C Lab Routine Type 2 diabetes mellitus with hyperglycemia, unspecified whether terminal makeup operator insulin use (HCC) Expected: 06/27/2024, Expires: 09/26/2024 [facility] Comment on above: Expected: 06/27/2024, Expires: Start: 06-27-2024 End: 09-26-2024 LIPID PANEL, NONFASTING LIPID PANEL, NONFASTING Lab Routine Type 2 diabetes mellitus with hyperglycemia, unspecified whether terminal makeup operator insulin use (HCC) Expected: 06/27/2024, Expires: 09/26/2024 [facility] Comment on above: Expected: 06/27/2024, Expires: Start: 06-27-2024 End: 09-26-2024 Microalbumin/Creatinine [Mass Ratio] in Urine ALBUMIN/CREATININE RATIO, URINE Lab Routine Type 2 diabetes mellitus with hyperglycemia, unspecified whether terminal makeup operator insulin use (HCC) Expected: 06/27/2024, Expires: 09/26/2024 [facility] Work Phone: Comment on above: Expected: 06/27/2024, Expires: Start: 06-23-2024 Hemoglobin A1c measurement HbA1C [facility] Start: 06-05-2024 End: 06-05-2024 Patient encounter procedure 06/05/2024 8:40 AM EST Office Visit Family Althea Moyer [address] [place] [address] [employer] marc APRN.SPORTS FITNESS AND WELLNESS DIRECTOR [address] [facility] [address] follow up DM Family Althea Moyer Comment on above: follow up DM Start: 05-07-2024 End: 05-07-2024 Patient encounter procedure Dermatology Cassia Comment on above: General appointment - changes in skin te xture and brown spots on head 3 month follow up Start: 04-12-2024 Annual PCP Team Chronic Disease Visit Annual PCP Team Chronic Disease Visit [facility] Start: 03-25-2024 Covid-19 Vaccine ( season) Covid-19 Vaccine ( season) [facility] Start: 03-25-2024 Influenza vaccination [facility] Start: 03-15-2024 End: 03-15-2024 Patient encounter procedure 03/15/2024 2:20 PM EDT Office Visit [facility] Althea Moyer [address] [facility] [place] [address] Juan R Osullivan MD [address] [facility] [place] [address] 3 month follow up Family Althea Moyer Comment on above: 3 month follow up Start: 03-07-2024 End: 03-07-2024 ambulatory 03/07/2024 8:45 AM EDT Results Only [facility] [address] [place] [address] labs [facility] Comment on above: labs Start: 03-06-2024 End: 06-05-2024 CBC W Auto Differential panel - Blood COMPLETE BLOOD COUNT AND DIFFERENTIAL Lab Routine Type 2 diabetes mellitus with hyperglycemia, unspecified whether terminal makeup operator insulin use (HCC) Expected: 03/06/2024, Expires: 06/05/2024 [facility] Work Phone: Comment on above: Expected: 03/06/2024, Expires: Start: 03-06-2024 End: 06-05-2024 Comprehensive metabolic 2000 panel - Serum or Plasma COMPREHENSIVE METABOLIC PANEL Lab Routine Type 2 diabetes mellitus with hyperglycemia, unspecified whether residential insulin use (HCC) Expected: 03/06/2024, Expires: 06/05/2024 [facility] Comment on above: Expected: 03/06/2024, Expires: Start: 03-06-2024 End: 06-05-2024 Hemoglobin A1c in Blood HEMOGLOBIN A1C Lab Routine Type 2 diabetes mellitus with hyperglycemia, unspecified whether residential insulin use (HCC) Expected: 03/06/2024, Expires: 06/05/2024 [facility] Comment on above: Expected: 03/06/2024, Expires: Start: 03-06-2024 End: 06-05-2024 LIPID PANEL, NONFASTING LIPID PANEL, NONFASTING Lab Routine Type 2 diabetes mellitus with hyperglycemia, unspecified whether terminal makeup operator insulin use (HCC) Expected: 03/06/2024, Expires: 06/05/2024 [facility] Comment on above: Expected: 03/06/2024, Expires: Start: 03-06-2024 End: 06-05-2024 Microalbumin/Creatinine [Mass Ratio] in Urine ALBUMIN/CREATININE RATIO, URINE Lab Routine Type 2 diabetes mellitus with hyperglycemia, unspecified whether terminal makeup operator insulin use (HCC) Expected: 03/06/2024, Expires: 06/05/2024 [facility] Comment on above: Expected: 03/06/2024, Expires: Start: 03-06-2024 End: 03-06-2024 Patient encounter procedure 03/06/2024 10:40 AM EDT Office Visit Dermatology [place] [address] [place] [id number] Kenia Manrique MD [address] [place] [address] General appointment - changes in skin texture and brown spots on head Dermatology [facility] Comment on above: General appointment - changes in skin te xture and brown spots on head Start: 02-02-2024 End: 02-02-2024 Patient encounter procedure 02/02/2024 3:00 PM EDT [facility] [address] [place] [address] [facility] [address] [place] [address] Type 2 diabetes mellitus with hyperglycemia, unspecified whether terminal makeup operator insulin use (HCC) [E11.65] [facility] Comment on above: Type 2 diabetes mellitus with hyperglyce olman, unspecified whether residential insulin use (HCC) [E11.65] Start: 2024 RSV Vaccine (1 - 1-dose 60+ series) RSV Vaccine (1 - 1-dose 60+ series) [facility] Start: 2024 RSV Vaccine (1 - Risk 60-74 years 1-dose series) RSV Vaccine (1 - Risk 60-74 years 1-dose series) [facility] Start: 12-05-2023 End: 03-05-2024 CBC panel - Blood by Automated count COMPLETE BLOOD COUNT Lab Routine Essential hypertension Expected: 12/05/2023, Expires: 03/05/2024 [facility] Comment on above: Expected: 12/05/2023, Expires: Start: 12-05-2023 End: 03-05-2024 Cholesterol in LDL [Mass/volume] in Serum or Plasma LDL CHOLESTEROL DIR Lab Routine Elevated triglycerides with high cholesterol Expected: 12/05/2023, Expires: 03/05/2024 [facility] Comment on above: Expected: 12/05/2023, Expires: Start: 12-05-2023 End: 03-05-2024 Comprehensive metabolic 2000 panel - Serum or Plasma COMPREHENSIVE METABOLIC PANEL Lab Routine Essential hypertension Expected: 12/05/2023, Expires: 03/05/2024 [facility] Comment on above: Expected: 12/05/2023, Expires: Start: 12-05-2023 End: 03-05-2024 Hemoglobin A1c in Blood HEMOGLOBIN A1C Lab Routine Type 2 diabetes mellitus without complication, without long-term current use of insulin (HCC) Expected: 12/05/2023, Expires: 03/05/2024 [facility] Work Phone: Comment on above: Expected: 12/05/2023, Expires: Start: 12-05-2023 End: 03-05-2024 Lipid 1996 panel - Serum or Plasma LIPID PANEL BASIC Lab Routine Elevated triglycerides with high cholesterol Expected: 12/05/2023, Expires: 03/05/2024 [facility] Comment on above: Expected: 12/05/2023, Expires: Start: 12-05-2023 End: 03-05-2024 Microalbumin/Creatinine [Mass Ratio] in Urine ALBUMIN/CREATININE RATIO, URINE Lab Routine Type 2 diabetes mellitus without complication, without long-term current use of insulin (HCC) Expected: 12/05/2023, Expires: 03/05/2024 [facility] Comment on above: Expected: 12/05/2023, Expires: Start: 05-27-2023 ANNUAL PCP TEAM CHRONIC DISEASE VISIT ANNUAL PCP TEAM CHRONIC DISEASE VISIT [facility] Start: 05-27-2023 COVID-19 VACCINE (#1) COVID-19 VACCINE (#1) [facility] Comment on above: Postponed from 1965 (Declined at t his time) Start: 05-27-2023 Hepatitis B surface antibody level LDL CHOLESTEROL [facility] Start: 05-27-2023 SHINGRIX VACCINE (1 of 2) SHINGRIX VACCINE (1 of 2) [facility] Comment on above: Postponed from 01/20/2014 (Declined at t his time) Start: 03-25-2023 Covid-19 Vaccine () Covid-19 Vaccine () [facility] Start: 03-25-2023 Influenza vaccination Influenza Vaccine (#1) [facility] Start: 11-24-2022 Hemoglobin A1c measurement HbA1C [facility] Start: 11-24-2022 Hemoglobin A1c/Hemoglobin.total in Blood HBA1C [facility] Start: 11-04-2022 3 comp foot exam completed DIABETIC FOOT EXAM [facility] Start: 11-04-2022 ANNUAL PCP TEAM CHRONIC DISEASE VISIT ANNUAL PCP TEAM CHRONIC DISEASE VISIT [facility] Start: 11-04-2022 Hepatitis B screening URINE ALBUMIN:CREATININE RATIO [facility] Start: 07-25-2022 DEPRESSION ASSESSMENT DEPRESSION ASSESSMENT [facility] Start: 07-21-2022 ONE PNEUMOVAX PRIOR TO AGE 65 ONE PNEUMOVAX PRIOR TO AGE 64 [facility] Comment on above: Postponed from 1980 (Declined at t his time) Start: 07-21-2022 PNEUMOCOCCAL (1 - PCV) PNEUMOCOCCAL (1 - PCV) [facility] Comment on above: Postponed from 01/20/1970 (Declined at t his time) Start: 05-27-2022 End: 07-27-2022 Comprehensive metabolic 2000 panel - Serum or Plasma [facility] Work Phone: Comment on above: Expected: 05/27/2022, Expires: 3 Start: 05-27-2022 End: 07-27-2022 Hemoglobin A1c in Blood [facility] Work Phone: Comment on above: Expected: 05/27/2022, Expires: 3 Start: 05-27-2022 End: 07-27-2022 HIV 1+2 Ab [Presence] in Serum or Plasma by Immunoassay [facility] Work Phone: Comment on above: Expected: 05/27/2022, Expires: 3 Start: 05-27-2022 End: 07-27-2022 LIPID PANEL, NONFASTING [facility] Work Phone: Comment on above: Expected: 05/27/2022, Expires: 3 Start: 05-06-2022 Hemoglobin A1c/Hemoglobin.total in Blood HBA1C [facility] Start: 05-05-2022 PROSTATE CANCER SCREENING DISCUSSION PROSTATE CANCER SCREENING DISCUSSION [facility] Start: 03-25-2022 Influenza vaccination INFLUENZA (Season Ended) [facility] Start: 03-06-2022 Adult depression screening assessment DEPRESSION SCREENING [facility] Start: 03-06-2022 Hepatitis B surface antibody level LDL CHOLESTEROL [facility] Start: 03-06-2022 HIV SCREENING HIV SCREENING [facility] Comment on above: Postponed from 01/20/1982 (Declined at t his time) Start: 11-04-2021 End: 01-04-2022 ALBUMIN/CREAT RATIO RND UR [facility] Work Phone: Comment on above: Expected: 11/04/2021, Expires: 2 Start: 11-04-2021 End: 01-04-2022 Comprehensive metabolic 2000 panel - Serum or Plasma [facility] Work Phone: Comment on above: Expected: 11/04/2021, Expires: 2 Start: 11-04-2021 End: 01-04-2022 Hemoglobin A1c/Hemoglobin.total in Blood [facility] Work Phone: Comment on above: Expected: 11/04/2021, Expires: 2 Start: 09-06-2021 Hemoglobin A1c/Hemoglobin.total in Blood HBA1C [facility] Start: 01-20-2014 SHINGRIX VACCINE (1 of 2) SHINGRIX VACCINE (1 of 2) [facility] Start: 01-20-2009 COLOGUARD (FIT-DNA) COLOGUARD (FIT-DNA) [facility] Start: 01-20-[address] COLONOGRAPHY [facility] Start: 01-20-2009 FECAL OCCULT BLOOD FECAL OCCULT BLOOD [facility] Start: 01-20-2009 Screening for malignant neoplasm of colon [facility] Start: 01-20-2009 SIGMOIDOSCOPY SIGMOIDOSCOPY [facility] Start: 01-20-1983 Pneumococcal Vaccine: 50+ (1 of 2 - PCV) Pneumococcal Vaccine: 50+ (1 of 2 - PCV) [facility] Start: 01-20-1982 BP CONTROLLED (<130/80) BP CONTROLLED (<130/80) [facility] Start: 01-20-1982 HIV SCREENING HIV SCREENING [facility] Start: 01-20-1974 Glaucoma screening Dilated Retinal Exam [facility] Start: 01-20-1974 Hepatitis B screening URINE ALBUMIN:CREATININE RATIO [facility] Start: 01-20-1974 Hepatitis C antibody, confirmatory test DILATED RETINAL EXAM [facility] Start: 01-20-1970 PNEUMOCOCCAL (1 - PCV) PNEUMOCOCCAL (1 - PCV) [facility] Start: 01-20-1970 Pneumococcal vaccination [facility] Start: 01-20-1969 COVID-19 VACCINE (1) COVID-19 VACCINE (1) [facility] Colonoscopy [facility] CT Abdomen and Pelvi s W contrast IV [facility] Patient Education Diabetes Food Tips Ch Diabetes Exercise Program Start Diabetes Fitness Progress Diabetes Carbs Fats Protein [facility] Immunizations Immunization Date Immunization Notes Care Provider Janell blanchard 05-27-2022 influenza, injectabl e, quadrivalent, contains preservative Juan R Osullivan MD Work Phone: [facility] 05-27-2022 influenza virus vaccine, unspecified formulation [place] [employer] BINDER.SPORTS FITNESS AND WELLNESS DIRECTOR Work Phone: [facility] 05-14-2018 influenza, injectabl e, quadrivalent, preservative free Juan R Osullivan MD Work Phone: [facility] Work Phone: 05-05-2017 influenza, injectabl e, quadrivalent, contains preservative [place] [employer] C[employer] BINDER.SPORTS FITNESS AND WELLNESS DIRECTOR Work Phone: [facility] 05-05-2017 tetanus toxoid, reduced diphtheria toxoid, and acellular pertussis vaccine, adsorbed [place] [employer]EN[employer] CORD BINDER.SPORTS FITNESS AND WELLNESS DIRECTOR Work Phone: [facility] Payers Date Payer Category Payer Self-pay 2022 Private Health Insurance [id number] 2021 Private Health Insurance [id number] 2021 Unknown ARASH RADHA ACKERMAN PPO [id number] 2021-Present [phone] [address] [place] [address] PPO [id number] 2020 Unknown EYE CARE PLAN OF [facility] VISION [id number] 07/25/2020-Present [address] [facility] [address] Indemnity [id number] 1965 Unknown [id number] 1964 Unknown [id number] [id number] Self-pay Unknown [id number] [id number] Unknown [id number] [id number] Unknown [id number]. 2.462 Unknown [id number]. 2.462 Unknown [id number] [id number]. 2.462 Unknown [id number]. 2.462 Unknown [id number]. 2.462 Unknown [id number]. 2.462 Unknown [id number]. 2.462 Unknown [id number] [id number]. 2.462 Unknown [id number] [id number]. 2.462 Unknown [id number]. 2.462 Unknown [id number] 2.462 Social History Date Type Detail Facility Start: 05-27-2022 End: 04-03-2025 Tobacco smoking status NHIS Never smoked tobacco [facility] Start: 11-04-2021 End: 03-26-2025 Alcohol intake Current drinker of alcohol (finding) [facility] Start: 07-20-2021 History SDOH Alcohol Frequency 4 [facility] Start: 07-20-2021 End: 05-26-2022 History SDOH Alcohol Std Drinks 1 [facility] Start: 05-05-2017 History SDOH Alcohol Comment Occasionally once per month [facility] Start: 07-20-2021 History SDOH Social Connections Phone 5 [facility] Start: 07-20-2021 History SDOH Social Connections Get Together 3 [facility] Start: 07-20-2021 End: 05-26-2022 History SDOH Stress 2 [facility] Start: 1965 Sex Assigned At Male [facility] Start: 10-16-2021 End: 05-27-2022 Exposure to SARS-CoV-2 (event) Not sure [facility] Work Phone: Start: 05-27-2022 Tobacco use and exposure Smokeless tobacco non-user [facility] Start: 05-27-2022 Alcohol Comment Occasionally twice per month [facility] Start: 12-05-2022 End: 01-07-2023 History of Social function [facility] Start: 12-05-2022 End: 01-07-2023 Social connection and isolation panel [facility] Start: 06-25-2012 Active Member of Clubs or Organizations Not on file [facility] Are you now , , , , never or living with a partner? [facility] How often to you hav e a drink containing alcohol? 2-4 times a month [facility] How many standard dr inks containing alcohol do you have on a typical day? 3 or 4 [facility] How often do you hav e 6 or more drinks on 1 occasion? Never [facility] Do you feel stress - tense, restless, nervous, or anxious, or unable to sleep at night because your mind is troubled all the time - these days [OSQ] To some extent [facility] (I/We) worried wheth er (my/our) food would run out before (I/we) got money to buy more. Never true [facility] In the past 12 month s, was there a time when you were not able to pay the mortgage or rent on time? No [facility] Start: 03-05-2021 Gender identity Identifies as male gender (finding) [facility] Start: 03-05-2021 Sexual orientation Heterosexual (finding) [facility] Do you belong to any clubs or organizations such as baptist groups, unions, [employer] or athletic groups, or school groups? Yes [facility] How often to you hav e a drink containing alcohol? 2-3 time sa week [facility] How many standard dr inks containing alcohol do you have on a typical day? 1 or 2 [facility] Medical Equipment Procedure Code Equipment Code Equipment Origin al Text Equipment Identifier Dates [id number] Start: 12-23-2023 Test blood sugar (s) 3 times daily. Dx: Type 2 DM - Uncontrolled E11.65 Insulin: Yes [id number] Start: 12-23-2023 Use one needle p er dose. once per day. [id number] Start: 01-27-2024 End: 09-19-2024 Use one needle p er dose. once per day. [id number] Start: 09-20-2024 Goals Date Patient Goal Desired Activity /State Functional Status Date Assessment Result Facility 03-19-2025 Functional status Bathroom Privilege [facility] Work Phone: Mental Status Date Assessment Result Facility 04-08-2025 Cognitive function Level Of Consciousness Drowsy [facility] Work Phone: 04-08-2025 Cognitive function Voice/Name [facility] Work Phone: 03-18-2025 Cognitive function Voice/Name [facility] Work Phone: Clinical Notes 11-04-2021 to 04-08-2025 Note Date & Type Note Facility 04-08-2025 Consult note [facility] 04-08-2025 Consult note Note Date/Time April 08, 2025 10:25am [facility] Medical Records Department [address] [place] [address] Pre-Anesthesia Evaluation 04/08/25 1025 MR#: [id number] Acct: [id number] Name: PHI GONZALEZ Rep #:[id number] : 1965 60 From: Asaf Keyes MD PCP: Dr. Pepe Osullivan MD Status :REG SDC Y Race: C Location: EN ASA Classification* ASA Classification ASA Classification: 2 Assessment & Plan Anesthesia* Anesthesia Assessment Anesthesia Assessment: Discussed sedation and/or anesthesia options, risks, benefits, and alternatives with patient/parents/legal guardian/POA. Questions invited. The patient/parents/legal guardian/POA seems to understand and agrees to proceedwith anesthesia plan. Reviewed the physical assessment, medical history, allergy history and patient home medications list prior to surgery/procedure/anesthetic and documented any changes. Performed airway and anesthesia risk assessments. Anesthesia Type Anesthesia Type: MAC Anesthesia Focused Assessment* Airway Assessment Mouth opens: >3 cm Mallampati Score: II Labs Anesthesia Preop lab: CBC WBC 9.8 K/mm3 (4.4-11.0) 03/19/25 06:31 03/19/25 RBC 4.57 M/mm3 (4.6-6.2) L 03/19/25 06:31 03/19/25 Hgb 13.5 g/dL (13.0-16.5) 03/19/25 06:31 03/19/25 Hct 39.2 % (40-54) L 03/19/25 06:31 03/19/25 Plt Count 330 K/mm3 (150-450) 03/19/25 06:31 03/19/25 CHEMISTRY Potassium 3.4 mmol/L (3.3-5.1) 03/19/25 06:31 03/19/25 Sodium 137 mmol/L (133-145) 03/19/25 06:31 03/19/25 Magnesium 2.3 mg/dL (1.5-2.2) H 03/17/25 12:55 03/17/25 Phosphorus 2.9 mg/dL (2.7-4.5) 03/17/25 12:55 03/17/25 BUN 12 mg/dL (4-19) 03/19/25 06:31 03/19/25 Creatinine 0.88 mg/dL (0.70-1.20) 03/19/25 06:31 03/19/25 Glucose 98 mg/dL (70-99) 03/19/25 06:31 03/19/25 POC Glucose 104 mg/dL (74-106) 03/19/25 06:32 03/19/25 TSH 3.780 uIU/mL (0.300-4.200) 03/18/25 03:51 08/12/16 COAG Pre-Assessment Diagnosis/Proposed Procedure Planned Operative Procedure(s): COLONOSCOPY Anesthesia History Anesthesia History - core mounter: Anesthesia History - core mounter Hx Hospitalization Yes: 02/202504/03/25 11:47 Any Problems With Anesthesia No 04/03/25 11:47 Cholinesterase deficiency No 04/03/25 11:47 You/Your Family Experience No 04/03/25 11:47 fever (hyperthermia) with Relationship Recent Exposure to Contagious No 03/18/25 03:44 Disease Does patient have nerve No 04/03/25 11:47 stimulator Patient instructed to have device shut off --Does patient have Pacemaker or ICD? When Was Last Pacemaker Check QUESTION #4 FULL TEXT: You/Your Family Experience fever (hyperthermia) with Anesthesia Last Oral Intake Last Oral intake: Last Oral Intake NPO since Meds taken in AM with sips of water? Meds patient instructed to take am of surgery PONV PONV - core mounter: PONV - core mounter Female No 04/03/25 11:47 HX of Motion Sickness No 04/03/25 11:47 HX of N/V After Surgery No 04/03/25 11:47 Non-Smoker Yes 04/03/25 11:47 Duration of Surgery greater No 04/03/25 11:47 than 60 minutes Number of Risk Factors 1 04/03/25 11:47 PONV Score Low Risk 04/03/25 11:47 Height & Weight Height & Weight: Anesthesia: Height & Weight Height 5 ft 8 in 04/01/25 14:49 Respiratory Assessment Respiratory Assessment - core mounter: Respiratory Tract Infection Hx - core mounter Hx Respiratory Tract Infection No 04/03/25 11:47 STOP Sleep Apnea STOP Sleep Apnea - core mounter: STOP Sleep Apnea - core mounter Hx Hypertension Yes: PT TO STARTED BP 04/03/25 11:47 25 Hx Sleep Apnea Yes 04/03/25 11:47 CPAP Yes: WEARS OCCAS. 04/03/25 11:47 BIPAP No 04/03/25 11:47 Do you snore loudly (louder than talking or can be heard Do you often feel tired/ fatigued/ sleepy during daytime? Has anyone observed you stop breathing during sleep? STOP Results Positive 04/03/25 11:47 QUESTION #5 FULL TEXT : Do you snore loudly (louder than talking or can be heard through closed doors)? 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 Specify any problems Hx of Preganancy in last 3 N/A 04/03/25 11:47 Months Nurse Filling Out Transfusion VCHRISTIN 04/03/25 11:47 & Questions: Date: 04/03/25 04/03/25 11:47 Time: 11:49 04/03/25 11:47 Patient unable to answer at this time (ie. confused, unrespo /Reproduction History /Reproductive History - core mounter: /Reproductive Hx- core mounter Hx Now No 04/03/25 11:47 Gestational Age (in weeks): EDC: Hx Hx Para Hx Section SAB No 04/03/25 11:47 PFSH Medical History Wears glasses Alcohol use Insulin dependent diabetes mellitus History of diverticulitis Non-smoker CPAP (continuous positive airway pressure) dependence HTN (hypertension) Diabetes Sleep apnea Home Medications ?Medication ?Instructions ?Recorded ?Last Taken ?Type empagliflozin 10 mg tablet 10 mg PO DAILY 03/17/25 Unk nown History (Jardiance) insulin glargine 100 unit/mL (3 10 unit subcut QPM Unknown History mL) subcutaneous pen (Lantus Solostar U-100 Insulin) lisinopril 10 mg tablet 10 mg PO QDAY 03/28/25 Unkno wn History semaglutide 0.25 mg or 0.5 mg (2 0.25 mg subcut QWEEK 03/28/25 Unknown History mg/3 mL) subcutaneous pen injector (Ozempic) Allergy/AdvReac Type Severity Reaction Status Date / Time No Known Allergies Allergy Verified 04/03/25 11:37 Surgical History History of esophagogastroduodenoscopy (EGD) Hx of colonoscopy Social History Smoking Status: Never smoker alcohol intake: current details: social substance use type: does not use what type of physical activity do you participate in: none Review of Systems (Anesthesia) ROS Narrative System reviewed and no additional complaints, except as documented. 04/08/25 1024 <Electronically signed by Asaf Keyes MD > Date _ Asaf Keyes MD Cosigner Signature: Date CC: ~ Signed [facility] Work Phone: 1(484) 590-157009-15-2025 Consult note [facility] Medical Records Department [address] [facility] [place] [address] Anesthesia Postop Eval I 04/08/25 1213 MR#: [id number] Acct: [id number] Name: PHI GONZALEZ Rep #:[id number] : 1965 60 From: Madi Garza PCP: Dr. Pepe Osullivan MD Status :REG SDC Y Race: C Location: [place] [address] Anesthesia: Postop Eval I Current Vital Signs Temperature: 98.1 F Pulse Rate: 81 Blood Pressure: 112/74 Respiratory Rate: 16 Pulse Ox: 98 Oxygen Delivery Method: Room Air Assessment Airway patent: Yes Spontaneous unlabored respirations: Yes Mental status: Awake and Calm nausea: No Vomiting: No Anesthesia Complication: No Fluid Hydration Crystalloid volume administer (ml): 600 Total IV fluid infused: 600 Progress Note Anesthesia document: Postop Eval 1 completed: Yes 04/08/25 1214 > Date _ Madi Kelley Signature: Date CC: ~ Signed [facility]09-15-2025 Procedure note [facility] Medical Records Department [address] [place] [address] Colonoscopy Report MR#: [id number] Acct: [id number] Name: PIH GONZALEZ Rep #:[id number] : 1965 60 From: Sae Wilburn DO PCP: Dr. Pepe Osullivan MD [facility] Patient Name: Phi Gonzalez Procedure Date: 04/08/2025 11:30 AM Date of : 1965 Age: 60 Procedure: Colonoscopy Indications: Hematochezia, Abnormal CT of the GI tract, Acute ischemic colitis Providers: Sae Wilburn DO Referring MD: Pepe Osullivan Medicines: Monitored Anesthesia Care Patient Profile: This is a 60 year old male. Refer to note in patient chart for documentation of history and physical. Last Colonoscopy: within the past 3 months. Complications: No immediate complications. Procedure: Pre-Anesthesia Assessment: - Prior to the procedure, a History and Physical was performed, and patient medications and allergies were reviewed. The patient is competent. The risks and benefits of the procedure and the sedation options and risks were discussed with the patient. All questions were answered and informed consent was obtained. Patient identification and proposed procedure were verified by the physician. Mental Status Examination: normal. Prophylactic Antibiotics: The patient does not require prophylactic antibiotics. Prior Anticoagulants: The patient has taken no anticoagulant or antiplatelet agents except for NSAID medication. ASA Grade Assessment: II - A patient with mild systemic disease. After reviewing the risks and benefits, the patient was deemed in satisfactory condition to undergo the procedure. The anesthesia plan was to use monitored anesthesia care (MAC). Immediately prior to administration of medications, the patient was re-assessed for adequacy to receive sedatives. The heart rate, respiratory rate, oxygen saturations, blood pressure, adequacy of pulmonary ventilation, and response to care were monitored throughout the procedure. The physical status of the patient was re-assessed after the procedure. After I obtained informed consent, the scope was passed under direct vision. Throughout the procedure, the patient's blood pressure, pulse, and oxygen saturations were monitored continuously. The Colonoscope was introduced through the anus and advanced to the cecum, identified by appendiceal orifice and ileocecal valve. The colonoscopy was performed without difficulty. The patient tolerated the procedure well. The quality of the bowel preparation was adequate. The ileocecal valve, appendiceal orifice, and rectum were photographed. Scope In: 11:47:23 AM Scope Withdrawal Time 0 hours 14 minutes 44 seconds Scope Out: 12:05:20 PM Total Procedure Duration Time 0 hours 17 minutes 57 seconds Findings: The perianal and digital rectal examinations were normal. Segmental moderate mucosal changes characterized by congestion (edema), erythema and granularity were found in the sigmoid colon. Biopsies were taken with a cold forceps for histology. Verification of patient identification for the specimen was done. Estimated blood loss was minimal. Area was tattooed with an injection of 3 mL of Saida ink. Multiple small and large-mouthed diverticula were found in the recto-sigmoid colon and sigmoid colon. The exam was otherwise without abnormality on direct and retroflexion views. Impression: - Segmental moderate mucosal changes were found in the sigmoid colon secondary to ischemic colitis. Biopsied. Tattooed. At the start of inflammation at 40 cm from the anal verge down to 15 cm to the anal verge - Diverticulosis in the recto-sigmoid colon and in the sigmoid colon. - The examination was otherwise normal on direct and retroflexion views. Recommendation: - Discharge patient to home. - Resume previous diet. - Continue present medications. - Await pathology results. - Repeat colonoscopy in 6 months for surveillance. Procedure Code(s): --- Professional --- 47547, Colonoscopy, flexible; with biopsy, single or multiple 48846, Colonoscopy, flexible; with directed submucosal injection(s), any substance CPT copyright 2021 [employer] [place] [employer]. All rights reserved. The codes documented in this report are preliminary and upon oil tester review may be revised to meet current compliance requirements. Sae Wilburn DO 04/08/2025 12:13:59 PM This report has been signed electronically. Number of Addenda: 0 Note Initiated On: 04/08/2025 11:30 AM 04/08/25 1214 Date _ Sae Wilburn DO Cosigner Signature: Date (if indicated) CC: Dr. Pepe Osullivan MD; Sae Wilburn DO ~ Date Dictated: 04/08/25 1130 Date Transcribed: Bag Inspector: RF Signed [facility]09-15-2025 Procedure note [facility] Medical Records Department [address] [place] [id number] Provation Physician Letter MR#: [id number] Acct: [id number] Name: PHI GONZALEZ DERIK Rep #:[id number] : 1965 60 From: Sae Wilburn DO PCP: Dr. Pepe Osullivan MD Status :[facility] 04/08/2025 Pepe Osullivan Re : Colonoscopy procedure for Phi Lisa Osullivan This procedure was performed on Tuesday, April 08, 2025. My impressions and recommendations are as follows: Impressions : - Segmental moderate mucosal changes were found in the sigmoid colon secondary to ischemic colitis. Biopsied. Tattooed. At the start of inflammation at 40 cm from the anal verge down to 15 cm to the anal verge - Diverticulosis in the recto-sigmoid colon and in the sigmoid colon. - The examination was otherwise normal on direct and retroflexion views. Recommendations : - Discharge patient to home. - Resume previous diet. - Continue present medications. - Await pathology results. - Repeat colonoscopy in 6 months for surveillance. My findings are described in the full procedure note, which is enclosed. If I can be of further assistance, please feel free to contact me at . Sincerely, Sae Wilburn DO 04/08/2025 12:13:59 PM This report has been signed electronically. 04/08/25 1214 Date _ Sae Wilburn DO Cosigner Signature: Date (if indicated) CC: Dr. Pepe Osullivan MD; Sae Wilburn DO ~ Date Dictated: 04/08/25 1130 Date Transcribed: Bag Inspector: RF Signed [facility]09-15-2025 History and physical note [facility] Medical Records Department [address] [place] [address] History & Physical Exam 04/08/25 1123 MR#: [id number] Acct: [id number] Name: PHI GONZALEZ Rep #:[id number] : 1965 60 From: Sae Wilburn DO PCP: Dr. Pepe Osullivan MD [facility] Location: [place] [address] HPI - General General Date of Admission: 04/08/25 Date of Service: 04/08/25 Chief Complaint: abnormal CT scan HPI Narrative PHI GONZALEZ, is a 60-year-old male, past medical history of poorly controlleddiabetes, who presents from outside facility with diagnosis of left colon mass that is causing at least partial large bowel obstruction. Patient reports 1 previous colonoscopy approximately 10 years ago that was unremarkable and his findings. However, for the last 11 days he has not had a true bowel movement. CT imaging demonstrates 10 x 7 cm mass of the sigmoid colon with surrounding diverticular disease. Therefore, differential must include neoplastic versus diverticular disease with intramural abscess. Repeat CT imaging with p.o. contrast was obtained but phase was suboptimal since contrast is yet to reach the area of the mass lesion. I have discussed with radiology techs that we should plan to obtain delayed pictures. Patient is currently completing a bowelprep for planned colonoscopy tomorrow. I discussed findings of patient's workupthus far with him at some length. Hand drawings were used to illustrate relevant anatomy and I also reviewed with him his index CT imaging. I shared the possibility of laparoscopic assisted sigmoid colectomy versus LAR with primary colorectal anastomosis versus sigmoidcolectomy with ostomy versus diverting ostomy. I shared that if he is unable to have much output with his colon prep and his A1c remains prohibitive then I would strongly recommend we proceed with a colostomy as his risks for anastomotic leak would be prohibitive. He confirmed understanding of thisconversation. I have obtained a updated hemoglobin A1c to assess for his glucose control given thathis previous value is now 15 months old. Will continue to follow and evaluate patient next tomorrow a.m. Please notify of any acute changes. CT 03/17/2025 10 cm lesion is located in the mid to proximal sigmoid colon. This seems to have a nearly apple-core appearance to it this is a barium enema finding indicating colon carcinoma. The thickened tumor produces a nearly occlusive passage to contrast, but there is contrast seen on both sides a vague suggestion of a string of contrast getting through, also findings associated with colon cancer No pathologically enlarged lymph nodes are identified. Questionable punctate lymph nodes in the mesentery COLON 03/18/2025 - inflammatory lesion - Preparation of the colon was poor. - Diverticulosis in the recto-sigmoid colon, in the sigmoid colon and in the descending colon. - Segmental severe inflammation was found in the recto-sigmoid colon, in the sigmoid colon and in the descending colon secondary to ischemic colitis. Biopsied. - Benign tumor in the sigmoid colon and in the descending colon. Biopsied. - Stool in the sigmoid colon, in the descending colon, at the splenic flexure, in the transverse colon, at the hepatic flexure, in the ascending colon and in the cecum. F/U w/ Dr. Caceres 03/28/2025 Patient is 60-year-old male who makes post hospital follow-up today after admission for sigmoid colon mass that appeared nearly obstructing, however, subsequent workup showed it to be nonobstructive and inflammatory in nature. Patient appears to be doing quite well today with no clinical symptoms of eitherabdominal pain or obstruction. He completed his prescribed antibiotic course and appears to be making significant strides with his diabetes control. I sharedthat I remain cautiously optimisticas I have had past patients where initial colonoscopic biopsies were benign but final surgical pathology still showed an underlying malignancy. I recommended follow-up CT imaging now that we are 2 weeks out from his prior studies and he has clinically shown some any improvements. Additionally he has pending follow-up with GI next week presumably to schedule follow-up colonoscopy. For the interim he is encouraged to try to increase his protein intake can liberalize his dietary intake. I alsoshared there may be some benefit him beginning a probiotic in addition to his activity having recently completed antibiotics. Lastly I encouraged him to continue his work with his fluid intake and diabetes control (I stated that the potential side effects of Ozempic appeared outweighed by the potential benefits of improved glycemic control as he increases his dietary intake). Plan: ? Repeat CT abdomen pelvis with p.o. and IV contrast ? Continue restricted diet but incorporate more protein ? Continued diligence with maintaining well-hydrated ? Continue to work on diabetes control ? Follow-up GI reevaluation and repeat colonoscopy (2) Colonic mass: Status: Acute Orders: Orders Abdomen/Pelvis WITH Contrast [facility] Medical History Wears glasses Alcohol use Insulin dependent diabetes mellitus History of diverticulitis Non-smoker CPAP (continuous positive airway pressure) dependence HTN (hypertension) Diabetes Sleep apnea Home Medications ?Medication ?Instructions ?Recorded ?Last Taken ?Type empagliflozin 10 mg tablet 10 mg PO DAILY 03/17/2506/18 History (Jardiance) insulin glargine 100 unit/mL (3 10 unit subcut QPM Unknown History mL) subcutaneous pen (Lantus Solostar U-100 Insulin) lisinopril 10 mg tablet 10 mg PO QDAY 03/28/25 Unkno wn History semaglutide 0.25 mg or 0.5 mg (2 0.25 mg subcut QWEEK 03/28/25 Unknown History mg/3 mL) subcutaneous pen injector (Ozempic) Allergy/AdvReac Type Severity Reaction Status Date / Time No Known Allergies Allergy Verified 04/08/25 10:41 Surgical History History of esophagogastroduodenoscopy (EGD) Hx of colonoscopy Social History Smoking Status: Never smoker alcohol intake: current details: social substance use type: does not use what type of physical activity do you participate in: none ROS Constitutional Constitutional: Denies fatigue, fever(s), poor appetite, weight gain or weight loss Gastrointestinal Gastrointestinal: Denies belching, bloating, change in bowel habits, change in stool character, chewing difficulty, coffee ground emesis, constipation, cramping, diarrhea, dyspepsia, dysphagia, earlysatiety, excessive flatus, fecalincontinence, heartburn, hematemesis, hematochezia, hemorrhoids, loose stools, melena, nausea, odynophagia, rectal bleeding, tenesmus, vomiting or weight changes Vital Signs Vital Signs Vital Signs: 04/08/25 10:49 04/08/25 10:49 Temperature 97.5 F L Temperature Source Temporal Pulse Rate 76 Respiratory Rate 16 Respiratory Pattern Normal Blood Pressure 126/86 H Blood Pressure Mean 99 Blood Pressure Source Monitor Blood Pressure Position Sitting Blood Pressure Location Left Arm Pulse Ox 96 Oxygen Delivery Method Room Air Weight Weight: 247 lb 9.266 oz Body Mass Index (BMI) 37.6 Physical Exam Const alert, oriented x3, no apparent distress and healthy appearing General Appearance: cooperative GI normal to inspection, nondistended, normoactive bowel sounds, soft to palpation,non-tender and non-distended Percussion: normal to percussion Rectal Exam: deferred Assessment & Plan Assessment/Plan (1) Abnormal finding on GI tract imaging: (2) Constipation: (3) Ischemic colitis: PLAN: Assessment and Plan Assessment and Plan (1) Abnormal finding on GI tract imaging: Status: Acute (2) Constipation: Status: Acute Plan: Continuing with hydration and dietary modifications alongside MiraLax administration to alleviate constipation. Monitor bowel movements and reassess digestive function post-dietary change. Plan 60-year-old male with a history of severe constipation and recently diagnosed severe diverticulitispresenting with suspicion of a colonic mass. Initial presentations suggested constipation linked tomotility issues, possibly exacerbated by lack of adequate solid diet intake and water consumption. I magingraised concerns of a possible mass, meriting further investigation via colonoscopy and additional CT imaging to ensure comprehensive assessment for malignancy exclusion. The patient's stable vital signs and absence of acute abdominal pain post-discharge denote a favorable response to antibiotics and dietary modifications pending further evaluations. Patient Instructions: - Follow your restricted diet and gradually reintroduce solid foods based on comfort. - Drink enough water to help with bowel regularity. - Take MiraLax as directed to prevent constipation. - Attend all scheduled appointments, including the upcoming CT scan and colonoscopy. - SuTab (Jardiance 3d hold) - Cease Ozempic initiation until further notice, pending CT scan review. - Report any new symptoms, especially abdominal pain or changes in bowel habits,promptly. 04/08/25 1126 Cosigner Signature (if applicable): CC: Dr. Pepe Osullivan MD; Sae Wilburn DO~ Signed [facility]09-15-2025 [facility] Medical Records Department [address] [place] [address] History Physical Exam 04/08/25 1123 MR#: [id number] Acct: [id number] Name: PHI GONZALEZ Rep #: [id number] : 1965 60 From: Sae Wilburn DO PCP: Dr. Pepe Osullivan MD [facility] Location: [place] [address] HPI - General General Date of Admission: 04/08/25 Date of Service: 04/08/25 Chief Complaint: abnormal CT scan HPI Narrative PHI GONZALEZ, is a 60-year-old male, past medical history of poorly controlled diabetes, who presents from outside facility with diagnosis of left colon mass that is causing at least partial large bowel obstruction. Patient reports 1 previous colonoscopy approximately 10 years ago that was unremarkable and his findings. However, for the last 11 days he has not had a true bowel movement. CT imaging demonstrates 10 x 7 cm mass of the sigmoid colon with surrounding diverticular disease. Therefore, differential must include neoplastic versus diverticular disease with intramural abscess. Repeat CT imaging with p.o. contrast was obtained but phase was suboptimal since contrast is yet to reach the area of the mass lesion. I have discussed with radiology techs that we should plan to obtain delayed pictures. Patient is currently completing a bowel prep for planned colonoscopy tomorrow. I discussed findings of patient's workup thus far with him at some length. Hand drawings were used to illustrate relevant anatomy and I also reviewed with him his index CT imaging. I shared the possibility of laparoscopic assisted sigmoid colectomy versus LAR with primary colorectal anastomosis versus sigmoid colectomy with ostomy versus diverting ostomy. I shared that if he is unable to have much output with his colon prep and his A1c remains prohibitive then I would strongly recommend we proceed with a colostomy as his risks for anastomotic leak would be prohibitive. He confirmed understanding of this conversation. I have obtained a updated hemoglobin A1c to assess for his glucose control given that his previous value is now 15 months old. Will continue to follow and evaluate patient next tomorrow a.m. Please notify of any acute changes. CT 03/17/2025 10 cm lesion is located in the mid to proximal sigmoid colon. This seems to have a nearly apple- core appearance to it this is a barium enema finding indicating colon carcinoma. The thickened tumor produces a nearly occlusive passage to contrast, but there is contrast seen on both sides a vague suggestion of a string of contrast getting through, also findings associated with colon cancer No pathologically enlarged lymph nodes are identified. Questionable punctate lymph nodes in the mesentery COLON 03/18/2025 - inflammatory lesion - Preparation of the colon was poor. - Diverticulosis in the recto-sigmoid colon, in the sigmoid colon and in the descending colon. - Segmental severe inflammation was found in the recto-sigmoid colon, in the sigmoid colon and in the descending colon secondary to ischemic colitis. Biopsied. - Benign tumor in the sigmoid colon and in the descending colon. Biopsied. - Stool in the sigmoid colon, in the descending colon, at the splenic flexure, in the transverse colon, at the hepatic flexure, in the ascending colon and in the cecum. F/U w/ Dr. Caceres 03/28/2025 Patient is 60-year-old male who makes post hospital follow-up today after admission for sigmoid colon mass that appeared nearly obstructing, however, subsequent workup showed it to be nonobstruct genesis and inflammatory in nature. Patient appears to be doing quite well today with no clinical symptoms of either abdominal pain or obstruction. He completed his prescribed antibiotic course and appears to be making significant strides with his diabetes control. I shared that I remain cautiously optimistic as I have had past patients where initial colonoscopic biopsies were benign but final surgical pathology still showed an underlying malignancy. I recommended follow-up CT imaging now that we are 2 weeks out from his prior studies and he has clinically shown some any improvements. Additionally he has pending follow-up with GI next week presumably to schedule follow-up colonoscopy. For the interim he is encouraged to try to increase his protein intake can liberalize his dietary intake. I also shared there may be some benefit him beginning a probiotic in addition to his activity having recently completed antibiotics. Lastly I encouraged him to continue his work with his fluid intake and diabetes control (I stated that the potential side effects of Ozempic appeared outweighed by the potential benefits of improved glycemic control as he increases his dietary intake). Plan: ??? Repeat CT abdomen pelvis with p.o. and IV contrast ??? Continue restricted diet but incorporate more protein ??? Continued diligenc (more content not included)...[facility] 04-08-2025 Consult note [facility] Medical Records Department [address] [place] [address] Pre-Anesthesia Evaluation 04/08/25 1025 MR#: [id number] Acct: [id number] Name: PHI GONZALEZ Rep #:[id number] : 1965 60 From: Asaf Keyes MD PCP: Dr. Pepe Osullivan MD Status :REG [facility] Y Race: C Location: EN ASA Classification* ASA Classification ASA Classification: 2 Assessment & Plan Anesthesia* Anesthesia Assessment Anesthesia Assessment: Discussed sedation and/or anesthesia options, risks, benefits, and alternatives with patient/parents/legal guardian/POA. Questions invited. The patient/parents/legal guardian/POA seems to understand and agrees to proceedwith anesthesia plan. Reviewed the physical assessment, medical history, allergy history and patient home medications list prior to surgery/procedure/anesthetic and documented any changes. Performed airway and anesthesia risk assessments. Anesthesia Type Anesthesia Type: MAC Anesthesia Focused Assessment* Airway Assessment Mouth opens: >3 cm Mallampati Score: II Labs Anesthesia Preop lab: CBC WBC 9.8 K/mm3 (4.4-11.0) 03/19/25 06:31 03/19/25 RBC 4.57 M/mm3 (4.6-6.2) L 03/19/25 06:31 03/19/25 Hgb 13.5 g/dL (13.0-16.5) 03/19/25 06:31 03/19/25 Hct 39.2 % (40-54) L 03/19/25 06:31 03/19/25 Plt Count 330 K/mm3 (150-450) 03/19/25 06:31 03/19/25 CHEMISTRY Potassium 3.4 mmol/L (3.3-5.1) 03/19/25 06:31 03/19/25 Sodium 137 mmol/L (133-145) 03/19/25 06:31 03/19/25 Magnesium 2.3 mg/dL (1.5-2.2) H 03/17/25 12:55 03/17/25 Phosphorus 2.9 mg/dL (2.7-4.5) 03/17/25 12:55 03/17/25 BUN 12 mg/dL (4-19) 03/19/25 06:31 03/19/25 Creatinine 0.88 mg/dL (0.70-1.20) 03/19/25 06:31 03/19/25 Glucose 98 mg/dL (70-99) 03/19/25 06:31 03/19/25 POC Glucose 104 mg/dL (74-106) 03/19/25 06:32 03/19/25 TSH 3.780 uIU/mL (0.300-4.200) 03/18/25 03:51 02/23 12/16 COAG Pre-Assessment Diagnosis/Proposed Procedure Planned Operative Procedure(s): COLONOSCOPY Anesthesia History Anesthesia History - core mounter: Anesthesia History - core mounter Hx Hospitalization Yes: 02/202504/03/25 11:47 Any Problems With Anesthesia No 04/03/25 11:47 Cholinesterase deficiency No 04/03/25 11:47 You/Your Family Experience No 04/03/25 11:47 fever (hyperthermia) with Relationship Recent Exposure to Contagious No 03/18/25 03:44 Disease Does patient have nerve No 04/03/25 11:47 stimulator Patient instructed to have device shut off --Does patient have Pacemaker or ICD? When Was Last Pacemaker Check QUESTION #4 FULL TEXT: You/Your Family Experience fever (hyperthermia) with Anesthesia Last Oral Intake Last Oral intake: Last Oral Intake NPO since Meds taken in AM with sips of water? Meds patient instructed to take am of surgery PONV PONV - core mounter: PONV - core mounter Female No 04/03/25 11:47 HX of Motion Sickness No 04/03/25 11:47 HX of N/V After Surgery No 04/03/25 11:47 Non-Smoker Yes 04/03/25 11:47 Duration of Surgery greater No 04/03/25 11:47 than 60 minutes Number of Risk Factors 1 04/03/25 11:47 PONV Score Low Risk 04/03/25 11:47 Height & Weight Height & Weight: Anesthesia: Height & Weight Height 5 ft 8 in 04/01/25 14:49 Respiratory Assessment Respiratory Assessment - core mounter: Respiratory Tract Infection Hx - core mounter Hx Respiratory Tract Infection No 04/03/25 11:47 STOP Sleep Apnea STOP Sleep Apnea - core mounter: STOP Sleep Apnea - core mounter Hx Hypertension Yes: PT TO STARTED BP 04/04/ 04/03/25 11:47 25 Hx Sleep Apnea Yes 04/03/25 11:47 CPAP Yes: WEARS OCCAS. 04/03/25 11:47 BIPAP No 04/03/25 11:47 Do you snore loudly (louder than talking or can be heard Do you often feel tired/ fatigued/ sleepy during daytime? Has anyone observed you stop breathing during sleep? STOP Results Positive 04/03/25 11:47 QUESTION #5 FULL TEXT : Do you snore loudly (louder than talking or can be heard through closeddoors)? 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 Specify any problems Hx of Preganancy in last 3 N/A 04/03/25 11:47 Months Nurse Filling Out Transfusion VCHRISTIN 04/03/25 11:47 & Questions: Date: 04/03/25 04/03/25 11:47 Time: 11:49 04/03/25 11:47 Patient unable to answer at this time (ie. confused, unrespo /Reproduction History /Reproductive History - core mounter: /Reproductive Hx- core mounter Hx Now No 04/03/25 11:47 Gestational Age (in weeks): EDC: Hx Hx Para Hx Section SAB No 04/03/25 11:47 [facility] Medical History Wears glasses Alcohol use Insulin dependent diabetes mellitus History of diverticulitis Non-smoker CPAP (continuous positive airway pressure) dependence HTN (hypertension) Diabetes Sleep apnea Home Medications ?Medication ?Instructions ?Recorded ?Last Taken ?Type empagliflozin 10 mg tablet 10 mg PO DAILY 03/17/25 Unk nown History (Jardiance) insulin glargine 100 unit/mL (3 10 unit subcut QPM Unknown History mL) subcutaneous pen (Lantus Solostar U-100 Insulin) lisinopril 10 mg tablet 10 mg PO QDAY 03/28/25 Unkno wn History semaglutide 0.25 mg or 0.5 mg (2 0.25 mg subcut QWEEK 03/28/25 Unknown History mg/3 mL) subcutaneous pen injector (Ozempic) Allergy/AdvReac Type Severity Reaction Status Date / Time No Known Allergies Allergy Verified 04/03/25 11:37 Surgical History History of esophagogastroduodenoscopy (EGD) Hx of colonoscopy Social History Smoking Status: Never smoker alcohol intake: current details: social substance use type: does not use what type of physical activity do you participate in: none Review of Systems (Anesthesia) ROS Narrative System reviewed and no additional complaints, except as documented. 04/08/25 1025 > Date _ Asaf Keyes MD Cosigner Signature: Date CC: ~ Signed [facility]09-04-2025 Telephone encounter Note* Telephone Encounter - Caitie Squires MA - 03/28/2025 1:32 PM EDT Patient viewed message via my chart. Caitie Squires MA [facility]09-04-2025 Miscellaneous Notes* Telephone Encounter - Caitie Squires MA - 03/28/2025 1:32 PM EDT Patient viewed message via my chart. Caitie Squires MA * Telephone Encounter - Caitie Squires MA - 03/28/2025 1:31 PM EDT ----- Message from Juan R Osullivan MD sent at 03/28/2025 8:58 AM EDT ----- Bloodwork shows improving cholesterol with LDL still above goal of <70. Recommend increasing hisLipitor from 20 to 40 mg daily and rechecking in 3 months. If agreeable, will send rx. Otherwise unremarkable. Continue current regimen. ----- Message ----- From: Lab, Background User Sent: 03/27/2025 1:43 AM EDT To: Juan R Osullivan MD documented in this encounterC[facility] Telephone encounter Note * Telephone Encounter - Caitie Squires MA - 03/28/2025 1:31 PM EDT ----- Message from Juan R Osullivan MD sent at 03/28/2025 8:58 AM EDT ----- Bloodwork shows improving cholesterol with LDL still above goal of <70. Recommend increasing hisLipitor from 20 to 40 mg daily and rechecking in 3 months. If agreeable, will send rx. Otherwise unremarkable. Continue current regimen. ----- Message ----- From: Lab, Background User Sent: 03/27/2025 1:43 AM EDT To: Juan R Osullivan MD [facility]09-04-2025 Telephone encounter Note* Telephone Encounter - Trevor Martinez PSS - 03/28/2025 10:06 AM EDT Telephoned the patient to schedule a new Primary Care pharmacy appt. Left a message. Made two attempts to contact the patient. Patient has not returned the call. If the patient returns a call, an appt will be scheduled. Encounter routed to the clinical pharmacist. [facility]09-04-2025 Miscellaneous Notes* Telephone Encounter - Trevor Martinez PSS - 03/28/2025 10:06 AM EDT Telephoned the patient to schedule a new Primary Care pharmacy appt. Left a message. Made two attempts to contact the patient. Patient has not returned the call. If the patient returns a call, an appt will be scheduled. Encounter routed to the clinical pharmacist. * Telephone Encounter - Trevor Martinez PSS - 03/27/2025 2:03 PM EDT Telephoned the patient to schedule a new Primary Care pharmacy appt. Left a message. documented in this encounterC[facility] Telephone encounter Note * Telephone Encounter - Trevor Martinez PSS - 03/27/2025 2:03 PM EDT Telephoned the patient to schedule a new Primary Care pharmacy appt. Left a message. [facility]09-02-2025 Instructions* Patient Instructions* Juan R Osullivan MD - 03/26/2025 3:20 PM EDT - Finish your Augmentin antibiotic course at home (total of 8 days) and take the last doses as prescribed. - Refill and continue your Lantus insulin at 10 units nightly (90-day supply sent to [facility]) and keep enough lancets on hand for testing. - Continue Jardiance daily as before. - Begin Ozempic injections under your skin once a week: 0.25 mg weekly for 4 weeks, then increase to 0.5 mg weekly. Inject into your abdominal area, removing the plastic cap first. Call us right awayif you develop severe nausea or vomiting. - Follow a low-residue (low-fiber) diet initially and slowly add back your usual foods over the next few days. - Go to the ER if you develop severe abdominal pain, fever, new constipation, blood in your stool, or black/tarry stools. - Check your blood sugar before breakfast and before bedtime each day. Record your readings and send them via Yidio in about 2 weeks so we can adjust your medications. - Contact the diabetes pharmacist (referral placed) within the next month for medication review andsupport (you can meet in person or virtually). - Schedule a diabetic eye exam if you haven t had one in the past year. - If your blood sugar drops below 70 mg/dL, treat with 15 g of fast-acting carbs (juice, glucose tablets, candy), wait 15 minutes, then recheck and repeat if still below 70 mg/dL. - Complete today s blood and urine tests (white blood cell count, anemia, kidney/liver function, urine albumin). - Keep your appointment with Dr. Caceres (general surgery) on as scheduled. - See Dr. Wilburn (gastroenterology) in about one month. - Arrange an outpatient colonoscopy in 3-4 months to re-evaluate your colon. - Return to this clinic in 6 weeks to review your progress, test results, and reports from your surgeon and GI specialist. documented in this encounterCincinnati [facility]09-02-2025 NoteHNO ID: [id number] Author: JUAN R OSULLIVAN MD Service: ? Author Type: Physician Type: Progress Notes Filed: 03/26/2025 15:25 Note Text: Chief Complaint Patient presents with: Transition Of Care Recording using [employer] software for draft documentation of the visit was discussed with the patient/authorized medical representative; all questions welcomed and answered. Patient/authorized medical representative agreed to proceed HPI Phi Gonzalez is a 60 year old male who presents here today for Hospital Discharge Follow up. Colonic Mass and Ischemic Colitis: - Derik Gonzalez was hospitalized at [facility] from 03/17 to 03/19 for colonic mass and ischemic colitis. - Initial presentation included 11-day history of constipation; seen at [place] [facility] where CT A/P was questionable for diverticulitis with abscess vs. sigmoid mass. - Received IV antibiotics and was transferred to [facility] at [place]'s request. - Repeat CT scan at [place] showed a definitive sigmoid mass with obstruction; colonoscopy performed showed inflammation and was able to pass the scope through the obstruction. - Abdominal pain improved after colonoscopy; able to have bowel movements, though they were liquid stools, and was passing gas. - Discharged on a low-residue diet and Augmentin for 8 days; told to follow up with gastroenterology to schedule an outpatient colonoscopy in 3-4 months and to follow up with general surgery. - Reports fear of eating food, leading to a diet of bone chicken broth, Jell-O, cream of wheat, [place] yogurt, Activia yogurt, and minimal solid food intake. - Denies abdominal pain, fevers, chills, nausea, or emesis. - Stools have been loose but brown in color. Diabetes Mellitus: - Uncontrolled during hospitalization; A1c was 9.9. - Currently on Jardiance and Lantus; unable to tolerate metformin. - Reports poor dietary habits and lack of exercise contributing to uncontrolled diabetes. - Recent blood glucose readings have been in the 120s-150s, but were higher (190s-224) before hospitalization when diet was poor. - Denies family history of thyroid cancer or personal history of pancreatitis. TRANSITION CARE MANAGEMENT (TCM) INITIAL CONTACT [facility] Provider Action/FYI: Initial contact with patient post discharge, spoke to patient. Patient identified by name and . TRANSITION CARE MANAGEMENT INITIAL OUTREACH DOCUMENTATION: No data to display SUMMARY: -Pt discharged from [facility] on 03/19/25. -Admitted for: Colonic mass Do you have a hospital follow up appointment with your PCP? Appointment on 03/26/[address] Osullivan. Yes. Remind patient of appointment date, time, and location. If not within 14 calendar days of discharge - please reschedule accordingly. MEDICATIONS: Many patients have questions or concerns about their medications once they are home. Were you prescribed any new medications? Yes. Amoxicillin 875-125 mg 1 PO BID Were you told to hold any medications? No Were any of your medications discontinued? No Do you have any questions about getting or taking your medications? No Your discharge instructions/After visit Summary (AVS) are important in guiding you through the recovery process. Is there anything I might help you understand? No Do you have all the necessary equipment and supplies at home? Yes Medical records from recent hospitalization: Placed for provider to review Past medical history, appointments, medications, allergies reviewed. Previous Medical History PAST MEDICAL HISTORY Diagnosis Date Coronary artery disease Diverticulitis Erectile dysfunction Essential hypertension GERD (gastroesophageal reflux disease) Hyperlipidemia Morbid obesity with BMI of 40.0-44.9, adult ([facility]) SILVANO (obstructive sleep apnea) severe Seasonal allergies Snoring Type 2 diabetes mellitus without complication, without long-term current use of insulin ([facility]) 03/09/2021 Previous Surgical History PAST SURGICAL HISTORY Procedure Laterality Date COLONOSCOPY FLX DX W/COLLJ SPEC WHEN PFRMD 09/22/2017 Colonoscopy ENDOSCOPIC EXCISION N-P MASS 11/10/2017 excision cyst mass colon Family History FAMILY HISTORY Adopted: Yes Family history unknown: Yes Patient Allergies ALLERGIES Allergen Reactions Losartan GI Upset Metformin Diarrhea With IR and ER Seasonal Allergies Other: See Comments Watery eyes, cough, and stuffy nose Current Medications Current Outpatient Medications on File Prior to Visit Medication Sig amoxicillin-clavulanate potassium (AUGMENTIN) 875-125 mg per tablet Take 1 tablet by mouth every 12 hours. insulin needles, DISPOSABLE, (PEN NEEDLE) 31 gauge x 5/16 Use one needle per dose. once per day. insulin glargine (LANTUS SOLOSTAR U-100 INSULIN) 100 unit/mL (3 mL) Inject 10 Units subcutaneously daily at bedtime. empagliflozin (JARDIANCE) 10 mg tablet Take 1 ta (more content not included)... [facility]09-02-2025 History of Present illness Narrative* Juan R Osullivan MD - 03/26/2025 2:39 PM EDT Images from the original note were not included. Chief Complaint Patient presents with: Transition Of Care Recording using [employer] software for draft documentation of the visit was discussed with the patient/authorized medical representative; all questions welcomed and answered. Patient/authorized medical representative agreed to proceed HPI Phi Gonzalez is a 60 year old male who presents here today for Hospital Discharge Follow up. Colonic Mass and Ischemic Colitis: - Derik Gonzalez was hospitalized at [facility] from 03/17 to 03/19 for colonic mass and ischemic colitis. - Initial presentation included 11-day history of constipation; seen at [place] [facility] where CT A/P wasquestionable for diverticulitis with abscess vs. sigmoid mass. - Received IV antibiotics and was transferred to [facility] at [place]'s request. - Repeat CT scan at [place] showed a definitive sigmoid mass with obstruction; colonoscopy performed showed inflammation and was able to pass the scope through the obstruction. - Abdominal pain improved after colonoscopy; able to have bowel movements, though they were liquid stools, and was passing gas. - Discharged on a low-residue diet and Augmentin for 8 days; told to follow up with gastroenterology to schedule an outpatient colonoscopy in 3-4 months and to follow up with general surgery. - Reports fear of eating food, leading to a diet of bone chicken broth, Jell-O, cream of wheat, [place] yogurt, Activia yogurt, and minimal solid food intake. - Denies abdominal pain, fevers, chills, nausea, or emesis. - Stools have been loose but brown in color. Diabetes Mellitus: - Uncontrolled during hospitalization; A1c was 9.9. - Currently on Jardiance and Lantus; unable to tolerate metformin. - Reports poor dietary habits and lack of exercise contributing to uncontrolled diabetes. - Recent blood glucose readings have been in the 120s-150s, but were higher (190s-224) before hospitalization when diet was poor. - Denies family history of thyroid cancer or personal history of pancreatitis. TRANSITION CARE MANAGEMENT (TCM) INITIAL CONTACT [facility] Provider Action/FYI: Initial contact with patient post discharge, spoke to patient. Patient identified by name and . TRANSITION CARE MANAGEMENT INITIAL OUTREACH DOCUMENTATION: No data to display SUMMARY: -Pt discharged from [facility] on 03/19/25. -Admitted for: Colonic mass Do you have a hospital follow up appointment with your PCP? Appointment on 03/26/[address] Osullivan. Yes. Remind patient of appointment date, time, and location. If not within 14 calendar days of discharge - please reschedule accordingly. MEDICATIONS: Many patients have questions or concerns about their medications once they are home. Were you prescribed any new medications? Yes. Amoxicillin 875-125 mg 1 PO BID Were you told to hold any medications? No Were any of your medications discontinued? No Do you have any questions about getting or taking your medications? No Your discharge instructions/After visit Summary (AVS) are important in guiding you through the recovery process. Is there anything I might help you understand? No Do you have all the necessary equipment and supplies at home? Yes Medical records from recent hospitalization: Placed for provider to review Past medical history, appointments, medications, allergies reviewed. Previous Medical History PAST MEDICAL HISTORY Diagnosis Date Coronary artery disease Diverticulitis Erectile dysfunction Essential hypertension GERD (gastroesophageal reflux disease) Hyperlipidemia Morbid obesity with BMI of 40.0-44.9, adult ([facility]) SILVANO (obstructive sleep apnea) severe Seasonal allergies Snoring Type 2 diabetes mellitus without complication, without long-term current use of insulin ([facility]) 03/09/2021 Previous Surgical History PAST SURGICAL HISTORY Procedure Laterality Date COLONOSCOPY FLX DX W/COLLJ SPEC WHEN PFRMD 09/22/2017 Colonoscopy ENDOSCOPIC EXCISION N-P MASS 11/10/2017 excision cyst mass colon Family History FAMILY HISTORY Adopted: Yes Family history unknown: Yes Patient Allergies ALLERGIES Allergen Reactions Losartan GI Upset Metformin Diarrhea With IR and ER Seasonal Allergies Other: See Comments Watery eyes, cough, and stuffy nose Current Medications Current Outpatient Medications on File Prior to Visit Medication Sig amoxicillin-clavulanate potassium (AUGMENTIN) 875-125 mg per tablet Take 1 tablet by mouth every 12hours. insulin needles, DISPOSABLE, (PEN NEEDLE) 31 gauge [...] 2 DM - Uncontrolled E11.65 Insulin: Yes atorvastatin (LIPITOR) 20 mg tablet Take 1 tablet by mouth daily at bedtime. For cholesterol. cetirizine-pseudoephedrine (ZYRTEC-D) 5-120 mg per tablet Take 1 tablet by mouth once daily. empagliflozin (JARDIANCE) 10 mg tablet Take 1 tablet by mouth once daily. Take 1 tablet once daily in the morning (Patient not taking: Reported on 03/15/2025) lisinopril (ZESTRIL) 10 mg tablet Take 1 tablet by mouth once daily. (Patient not taking: Reported on 03/26/2025) Tadalafil (CIALIS) 10 mg tablet Take 1 tablet by mouth as needed (Prior to sexual intercourse). (Patient not taking: Reported on 03/15/2025) CPAP Initiate Auto PAP @ 5-20 cm of water with humidification. Mask (per patient preference) optional chin strap (if indicated) , filters, tubing, humidifier and lifetime supplies. (Patient not taking: Reported on 12/05/2023) No current facility-administered medications on file prior to visit. Social History SOCIAL HISTORY[1] Review of Symptoms REVIEW OF SYSTEMS GENERAL: No weight loss, malaise or fevers RESPIRATORY: Negative for cough, hemoptysis, wheezing, COPD, dyspnea or shortness of breath CARDIOVASCULAR: Negative for chest pain, leg swelling, hypertension, CHF or palpitations GI: See HPI SKIN: Negative for lesions, rash, and itching EXAM: BP 134/94 Pulse 79 Ht 173.5 cm (5' 8.31) Wt 115.1 kg (253 lb 12.8 oz) SpO2 98% BMI 38.24kg/m General Appearance: Well appearing, alert, in no acute distress, well-hydrated, well nourished.. Skin: Skin color, texture, turgor normal, no suspicious rashes or lesions. Lungs: Lungs clear to auscultation. No wheezing, rhonchi, rales.. Heart: RRR without murmur, gallop, or rubs. No ectopy. Abdomen: Normal abdominal exam, Abdomen soft, non-tender. Bowel sounds normal. No masses, organomegaly. Extremities: No deformities, edema, skin discoloration, clubbing or cyanosis. Good capillary refill. . Health Maintenance List Dilated Retinal Exam Never done Pneumococcal Vaccine: 50+(1 of 2 - PCV) Never done Shingrix Vaccine(1 of 2) Never done RSV Vaccine(1 - Risk 60-74 years 1-dose series) Never done HbA1C due on 06/23/2024 Diabetic Foot Exam due on 12/04/2024 Depression Screening due on 12/04/2024 Anxiety Screening due on 12/04/2024 Urine Albumin:Creatinine Ratio due on 12/21/2024 LDL Cholesterol due on 12/21/2024 Influenza Vaccine(1) due on 03/25/2025 Annual PCP Team Chronic Disease Visit due on 03/26/2026 DTaP,Tdap,Td Vaccine(2 - Td or Tdap) due on 05/05/2027 Prostate Cancer Screening Discussion due on 05/27/2027 Colorectal Cancer Screening due on 09/23/2027 Hepatitis C Screening Completed HIV Screening Completed 1. Acute diverticulitis (K57.92) 2. Ischemic colitis (HCC) (K55.9) 3. Acute constipation (K59.00) - Recent hospitalization (03/17-03/19) for severe diverticulitis and ischemic colitis following 11 days of constipation; initial CT scans suggested possible sigmoid mass with obstruction, but colonoscopy revealed severe inflammation without definitive mass. - Abdominal pain and constipation improved post-colonoscopy; currently on low- residue diet and completing 8-day course of Augmentin. - Advised to continue low-residue diet as instructed and gradually reintroduce normal foods; educated on signs and symptoms warranting urgent evaluation (e.g., recurrent severe abdominal pain, fevers, hematochezia, melena). - Outpatient colonoscopy recommended in 3-4 months to reassess for any underlying mass once inflammation has resolved. - Follow-up with general surgery (Dr. Caceres) in 2 weeks and gastroenterology (Dr. Wilburn) in 1 month; patient encouraged to keep these appointments and seek second opinion if not comfortable with surgical recommendations. - Additional blood and urine testing ordered today to monitor for resolution of inflammation, anemia, and assess kidney and liver function. 4. Type 2 diabetes mellitus with hyperglycemia, with long-term current use of insulin (HCC) (E11.65) 5. Controlled type 2 diabetes mellitus without complication, with long-term current use of insulin (HCC) (E11.9) - Uncontrolled during hospitalization; recent A1c 9.9%. - Currently on Jardiance and Lantus 10 units at bedtime; unable to tolerate metformin. - Start Ozempic 0.25 mg SQ weekly for 28 days, then increase to 0.5 mg weekly; continue Jardiance and Lantus as prescribed. - Educated on potential side effects of Ozempic (nausea, vomiting) and instructed to report any intolerable symptoms. - Advised to check blood glucose before breakfast and bedtime daily, record readings, and report in2 weeks via [employer] for medication adjustment. - Referral to diabetes pharmacist for medication management and follow-up within the next month. - Provided education on hypoglycemia management and importance of dietary modifications; encouragedto follow diabetic diet and attend diabetes education program. - Advised to obtain diabetic eye exam if not done within the past year. - Follow-up in 6 weeks to reassess glycemic control and review recommendations from pharmacist, surgeon, and GI. 6. Essential hypertension (I10) - Restart lisinopril 10 mg daily. Recheck blood pressure at upcoming OV. 7. Pure hypercholesterolemia (E78.00) - Continue statin. Juan R Osullivan MD [1] Social History Tobacco Use Smoking status: Never Smokeless tobacco: Never Substance Use Topics Alcohol use: Yes Comment: Occasionally twice per month Drug use: No documented in this encounterC[facility]innati [facility]08-28-[facility] Telephone encounter Note * Telephone Encounter - Caitie Squires MA - 03/21/2025 1:23 PM EDT Images from the original note were not included. TRANSITION CARE MANAGEMENT (TCM) INITIAL CONTACT [facility] Provider Action/FYI: Initial contact with patient post discharge, spoke to patient. Patient identified by name and . TRANSITION CARE MANAGEMENT INITIAL OUTREACH DOCUMENTATION: No data to display SUMMARY: -Pt discharged from [facility] on 03/19/25. -Admitted for: Colonic mass Do you have a hospital follow up appointment with your PCP? Appointment on 03/26/[address] Osullivan. Yes. Remind patient of appointment date, time, and location. If not within 14 calendar days of discharge - please reschedule accordingly. MEDICATIONS: Many patients have questions or concerns about their medications once they are home. Were you prescribed any new medications? Yes. Amoxicillin 875-125 mg 1 PO BID Were you told to hold any medications? No Were any of your medications discontinued? No Do you have any questions about getting or taking your medications? No Your discharge instructions/After visit Summary (AVS) are important in guiding you through the recovery process. Is there anything I might help you understand? No Do you have all the necessary equipment and supplies at home? Yes Medical records from recent hospitalization: Placed for provider to review [facility]08-28-2025 Miscellaneous Notes* Telephone Encounter - Caitie Squires MA - 03/21/2025 1:23 PM EDT Images from the original note were not included. TRANSITION CARE MANAGEMENT (TCM) INITIAL CONTACT [facility] Provider Action/FYI: Initial contact with patient post discharge, spoke to patient. Patient identified by name and . TRANSITION CARE MANAGEMENT INITIAL OUTREACH DOCUMENTATION: No data to display SUMMARY: -Pt discharged from [facility] on 03/19/25. -Admitted for: Colonic mass Do you have a hospital follow up appointment with your PCP? Appointment on 03/26/[address] Osullivan. Yes. Remind patient of appointment date, time, and location. If not within 14 calendar days of discharge - please reschedule accordingly. MEDICATIONS: Many patients have questions or concerns about their medications once they are home. Were you prescribed any new medications? Yes. Amoxicillin 875-125 mg 1 PO BID Were you told to hold any medications? No Were any of your medications discontinued? No Do you have any questions about getting or taking your medications? No Your discharge instructions/After visit Summary (AVS) are important in guiding you through the recovery process. Is there anything I might help you understand? No Do you have all the necessary equipment and supplies at home? Yes Medical records from recent hospitalization: Placed for provider to review [facility] Dis[facility] Medical Records Department [address] [place] [address] Discharge Summary 03/19/25 1532 MR#: [id number] Acct: [id number] Name: PHI GONZALEZ Rep #:[id number] : 1965 60 From: Henrry landers MD PCP: Dr. Pepe Osullivan MD Status :ADM IN Location: [place] [address] Providers Date of Admission: 03/17/25 Primary Care Physician: Dr. Pepe Osullivan MD Consultations 03/17/25 12:33 Consult: Gastroenterology Routine Consulting Provider: [facility] Reason for Consult: Colonic mass EMERGENT Consult: No MD Notified: Yes Date Notified: 03/17/25 Time Notified: 12:25 Method of Notification: Verbal Consult: General Surgery Routine Consulting Provider: Fadi Caceres Reason for Consult: Colonic mass EMERGENT Consult: No MD Notified: Yes Date Notified: 03/17/25 Time Notified: 12:25 Method of Notification: Verbal Reason For Visit: COLONIC MASS Diagnosis Discharge Diagnosis (1) Colonic mass: Status: Acute Code(s): K63.89 - Other specified diseases of intestine (2) Ischemic colitis: Status: Acute Code(s): K55.9 - Vascular disorder of intestine, unspecified Medications at Discharge Home Medications empagliflozin 10 mg tablet (Jardiance) 10 mg PO DAILY 03/17/25 insulin glargine 100 unit/mL (3 mL) subcutaneous pen (Lantus Solostar U-100 Insulin) 10 unit subcutQPM 03/17/25 amoxicillin 875 mg-potassium clavulanate 125 mg tablet 1 tab PO BID #16 tabs 03/19/25 Hospital Course Operations None Procedures Colonoscopy Summary of Care Provided Minutes Spent on Discharge: 42 Hospital Course: Per HPI: PHI GONZALEZ, is a 60 M who presents with 11-day history of constipation. Patient initially presented to [place] emergency department CT ofthe abdomen and pelvis was questionable for diverticulitis with an abscess versus sigmoid mass. Patient did receive IV antibiotics plan was for patient tohave been admitted for subsequent eval patient however requested to be transferred to [facility]. Patient did report nausea but denied any vomiting. Reportspassing some mucus per rectum. The surgeon on-call was notified prior to patient being admitted. Hospital Course: 1. Acute diverticulitis?60-year-old male presented to the hospital with significant constipation, he presented to [facility] where they performed a CT scan of his abdomen and pelvis that demonstrated diverticulitis versus sigmoid mass. Repeat CT scan here seem to show a more definitive sigmoid mass with obstruction so a colonoscopy was performed however it demonstrated inflammation and he was able to pass the scope through the obstruction. Today the abdominal pain is much improved and he is having bowel movements, albeit liquid, and is passing gas. Because of this improvement and the findings of thecolonoscopy that did not demonstrate a colonic mass the possibility of dischargewas discussed with him and he expressed understanding of the risks and benefits of going home and would like to try to go home today. I discussed the case withgeneral surgery who was okay with it assuming hetolerated lunch which he did. He was given recommendations for a low residue diet and I did spend ab out 30 to 45 minutes discussing lifestyle modifications specifically dietary modificationsfor his diabetes and weight loss. The plan will be for him to follow-up with gastroenterology to schedule an outpatient colonoscopy in 3 to 4 months, and then he will follow-up with general surgery as well because he will still likelyregardless of the pathology we will need his the sigmoid section resected however if he can get his blood sugar under control and he can potentially avoidan ostomy from his outpatient surgery. Also recommend follow-up with his PCP in3 to 5 days. Will continue with Augmentin for another 8 days to complete treatment of his acute diverticulitis. 2. Type 2 diabetes?when extensive discussion on lifestyle modifications as wellas dietary changes. Will not change his blood sugar medications at this time and will continue with his Lantus and his Jardiance. He will need close follow- up as he can become severely hypoglycemic if he does make significant lifestyle changes with these medications. Of note his A1c was 9.9 but he does admit to not following any kind of specific diet for the last 5 to 6 weeks because of work. Physical Exam Narrative General: Alert, Oriented x3, Cooperative, No apparent distress HEENT: Atraumatic, PERRLA, EOMI, Normocephalic Oral: Moist Mucosa Neck: Supple, No JVD Lungs: Clear to auscultation, Normal air movement, No rhonchi, No wheeze, No rales Cardiovascular: Regular rate, Regular Rhythm, Normal S1, Normal S2, No murmurs Abdomen: Soft, Non Tender, Non-Distended, No Hepato-splenomegaly Extremities: No edema, Capillary Refill Less than 3 Seconds Skin: No rashes, No breakdown Musculoskeletal: No Tenderness to Palpation of Joints or Extremities Neurological: No focal neurological deficits, Motor Exam 5/5 strength throughout, Sensory exam intact to light touch and pain Psych/Mental Status: Normal Affect, Appropriate Weight / BMI Weight Weight: 253 lb 15.56 oz Body Mass Index (BMI) 38.6 ABG / Lab / Microbiology Data 03/19/25 06:31 03/19/25 06:31 Laboratory: Laboratory Results - last 24 hr 03/18/25 17:25: POC Glucose 91 03/18/25 22:03: POC Glucose 117 H 03/19/25 06:31: WBC 9.8, RBC 4.57 L, Hgb 13.5, Hct 39.2 L, MCV 85.8, MCH 29.5, MCHC 34.4, RDW Std Deviation 36.9, RDW Coeff of Tre 11.8, Plt Count 330, MPV 9.1, Immature Gran % (Auto) 0.500, Neut % (Auto) 76.2 H, Lymph % (Auto) 12.8 L, [place] % (Auto) 7.2, Eos % (Auto) 2.8, Baso % (Auto) 0.5, Absolute Neuts (auto) 7.5, Absolute Lymphs (auto) 1.26, Nucleated RBC % 0, Sodium 137, Potassium 3.4, Chloride 102, Carbon Dioxide 22.8, Anion Gap 12, BUN 12, Creatinine 0.88, Estim Creat Clear Calc 108.63, Est GFR (MDRD) Non-Af 98, BUN/Creatinine Ratio 13.6, Glucose 98, Calcium 8.6 03/19/25 06:32: POC Glucose 104 D/C Instructions Call your doctor if you observe: Fever of 101 or Higher, Shortness of breath, Dizziness, Fainting spells, Swelling in the ankles, Chest pain and Increased palpitations (irregular heartbeat) DC O2, CPAP, BIPAP Needs Home O2 Discharge instructions: No Meaningful Use Info Meaningful Use Meaningful Use Diagnoses (Choose all that apply): None applicable Discharge Plan Admission Admit Date/Time: 03/17/25 12:22 Attending Provider: Henrry Tian Primary Care Provider: Pepe Osullivan Consulting Providers: Colby Romo; Cosmo,Sae; Gwendolyn Cooper; Klarissa Butler; Caitie Sher; Fadi aCceres; Benitez Bianchi Instructions Patient Instructions: Diabetes Food Tips Ch, Diabetes Exercise Program Start, Diabetes Fitness Progress, Diabetes Carbs Fats Protein Additional Instructions / Restrictions: What are low-fiber foods? If your doctor tells you to follow a low-fiber diet, here are low-fiber foods you can eat and higher-fiber foods you should avoid. Remember to always choose foods that you would normally eat. Do not try any foods that caused you discomfort or allergic reactions in the past. If you are on a ?low-residue diet,? your food choices are even more restricted than those listed below. Talk with your cancer care team or dietitian if you have questions about certainfoods or amounts. Meat, fish, poultry, and protein Eat: Tender cuts of meat Ground meat Tofu Fish and shellfish Smooth peanut butter Eggs Bake, broil, or poach meats, and use mild seasonings. Try preparing meats as stews, roasts, meatloaves, casseroles, sandwiches, and soups using ingredients on the approved lists. Scramble, poach, or boil eggs; or make omelets, souffl?s, custard, puddings, andcasseroles, using ingredients noted below. You might want to ask your doctor, nurse, or dietitian about other foods maybe OK for you to eat, and find out when you can go back to your normal diet. Avoid: All beans, nuts, peas, lentils, and legumes Processed meats, hot dogs, sausage, and cold cuts Tough meats with gristle Dairy: Milk and cheese Eat: Only in small to medium amounts and only if they don?t cause problems for you Milk, chocolate milk, buttermilk, and milk drinks Yogurt without seeds or granola Sour cream Cheese Cottage cheese Custard or pudding Ice cream or frozen desserts (without nuts) Cream sauces, soups, and casseroles You can use these items in desserts, snacks, or breads. Bread, cereals, and grains Eat: White breads, waffles, Mongolian toast, plain white rolls, or white bread toast Pretzels Plain pasta or noodles White rice Crackers, zwieback, cari, and matzoh (no cracked wheat or whole grains) Cereals without whole grains, added fiber, seeds, raisins, or other dried fruit Use white flour for baking and making sauces. Grains, such as white rice, Cream of Wheat, or grits,should be well-cooked. Include the above grains in casseroles, dumplings, souffl?s, cheese strata, kugels, and pudding. Avoid any food that contains: Brown or wild rice Whole grains, cracked grains, or whole wheat products Kasha (buckwheat) Cornbread or cornmeal Keegan crackers Bran Wheat germ Nuts Granola Coconut Dried fruit Seeds Vegetables and potatoes Eat: Tender, well-cooked fresh or canned vegetables without seeds, stems, or skins Cooked sweet or white potatoes without skins Strained vegetable juices without pulp or spices You can also eat these with cream sauces, or in soups, souffl?s, kugels, and casseroles. Avoid: All raw or steamed vegetables All types of beans Potatoes with skin Peas [place] Cabbage, broccoli, cauliflower, [place] sprouts, and greens Sauerkraut Onions Fruits and desserts Eat: Soft canned or cooked fruit without seeds or skins (small amounts) Small amounts of well-ripened banana Strained or clear juices Small amounts of soft cantaloupe or honeydew melon Cookies and other desserts without whole grains, dried fruit, berries, nuts, or coconut Sherbet and popsicles Serving suggestions include gelatins, milk shakes, frozen desserts, puddings, tapioca, cakes, and sauces. Avoid: All raw or dried fruits Berries Prune juice, prunes, and raisins Other foods Eat: Mayonnaise and mild salad dressings Margarine, butter, cream, and oils in small amounts Plain gravies Plain bouillon and broth Ketchup and mild mustard Spices, cooked herbs, and salt Sugar, honey, and syrup Clear jellies Hard candy and marshmallows Plain chocolate Avoid: Marmalade Pickles, olives, relish, and horseradish Popcorn Potato chips Liquids Keep in mind that low-fiber foods cause fewer bowel movements and smaller stools. You may need to drink extra fluids to help prevent constipation while you are on a low-fiber diet. Drink plenty of water unless your doctor tells you otherwise, and use juices and milk as noted above. Discharge Orders/Prescriptions Prescriptions: New amoxicillin-pot clavulanate 875-125 mg tablet 1 tab PO BID Qty: 16 0RF Continued Jardiance 10 mg tablet 10 mg PO DAILY insulin glargine [Lantus Solostar U-100 Insulin] 100 unit/mL (3 mL) insulin pen 10 unit subcut QPM Referrals / Follow Up: Pepe Osullivan MD [Primary Care Provider] - Within 1 Week Fadi Caceres MD [Med Staff - Active Staff] - Within 2 Weeks Sae Wilburn DO [Med Staff - Active Staff] - Within 1 Month Disposition Disposition (needs filled in before D/C Order can be placed): Home, Self Care Charges/Coding Visit Charges Inpatient E&M: 63968 Disch Hosp >30min 03/19/25 1538 Cosigner Signature (if applicable): CC: Dr. Pepe Osullivan MD; Dr. Henrry Tian MD~ Signed [facility]08-26-2025 [facility] Medical Records Department [address] [place] [address] Discharge Summary 03/19/25 1532 MR#: [id number] Acct: [id number] Name: PHI GONZALEZ #: [id number] : 1965 60 From: Henrry Tian MD PCP: Dr. Pepe Osullivan MD Status:ADM IN [place] [facility] [id number] Providers Date of Admission: 03/17/25 Primary Care Physician: Dr. Pepe Osullivan MD Consultations 03/17/25 12:33 Consult: Gastroenterology Routine Consulting Provider: [facility] Reason for Consult: Colonic mass EMERGENT Consult: No MD Notified: Yes Date Notified: 03/17/25 Time Notified: 12:25 Method of Notification: Verbal Consult: General Surgery Routine Consulting Provider: Fadi Caceres Reason for Consult: Colonic mass EMERGENT Consult: No MD Notified: Yes Date Notified: 03/17/25 Time Notified: 12:25 Method of Notification: Verbal Reason For Visit: COLONIC MASS Diagnosis Discharge Diagnosis (1) Colonic mass: Status: Acute Code(s): K63.89 - Other specified diseases of intestine (2) Ischemic colitis: Status: Acute Code(s): K55.9 - Vascular disorder of intestine, unspecified Medications at Discharge Home Medications empagliflozin 10 mg tablet (Jardiance) 10 mg PO DAILY 03/17/25 insulin glargine 100 unit/mL (3 mL) subcutaneous pen (Lantus Solostar U-100 Insulin) 10 unit subcut QPM 03/17/25 amoxicillin 875 mg-potassium clavulanate 125 mg tablet 1 tab PO BID #16 tabs 03/19/25 Hospital Course Operations None Procedures Colonoscopy Summary of Care Provided Minutes Spent on Discharge: 42 Hospital Course: Per HPI: PHI GONZALEZ, is a 60 M who presents with 11-day history of constipation. Patient initially presented to [place] emergency department CT of the abdomen and pelvis was questionable for diverticulitis with an abscess versus sigmoid mass. Patient did receive IV antibiotics plan was for patient to have been admitted for subsequent eval patient however requested to be transferred to [facility]. Patient did report nausea but denied any vomiting. Reports passing some mucus per rectum. The surgeon on-call was notified prior to patient being admitted. Hospital Course: 1. Acute diverticulitis???60-year-old male presented to the hospital with significant constipation, he presented to [facility] where they performed a CT scan of his abdomen and pelvis that demonstrated diverticulitis versus sigmoid mass. Repeat CT scan here seem to show a more definitive sigmoid mass with obstruction so a colonoscopy was performed however it demonstrated inflammation and he was able to pass the scope through the obstruction. Today the abdominal pain is much improved and he is having bowel movements, albeit liquid, and is passing gas. Because of this improvement and the findings of the colonoscopy that did not demonstrate a colonic mass the possibility of discharge was discussed with him and he expressed understanding of the risks and benefits of going home and would like to try to go home today. I discussed the case with general surgery who was okay with it assuming he tolerated lunch which he did. He was given recommendations for a low residue diet and I did spend about 30 to 45 minutes discussing lifestyle modifications specifically dietary modifications for his diabetes and weight loss. The plan will be for him to follow-up with gastroenterology to schedule an outpatient colonoscopy in 3 to 4 months, and then he will follow-up with general surgery as well because he will still likely regardless of the pathology we will need his the sigmoid section resected however if he can get his blood sugar under control and he can potentially avoid an ostomy from his outpatient surgery. Also recommend follow-up with his PCP in 3 to 5 days. Will continue with Augmentin for another 8 days to complete treatment of his acute diverticulitis. 2. Type 2 diabetes???when extensive discussion on lifestyle modifications as well as dietary changes. Will not change his blood sugar medications at this time and will continue with his Lantus and his Jardiance. He will need close follow-up as he can become severely hypoglycemic if he does make significant lifestyle changes with these medications. Of note his A1c was 9.9 but he does admit to not following any kind of specific diet for the last 5 to 6 weeks because of work. Physical Exam Narrative General: Alert, Oriented x3, Cooperative, No apparent distress HEENT: Atraumatic, PERRLA, EOMI, Normocephalic Oral: Moist Mucosa Neck: Supple, No JVD Lungs: Clear to auscultation, Normal air movement, No rhonchi, No wheeze, No rales Cardiovascular: Regular rate, Regular Rhythm, Normal S1, Normal S2, No murmurs Abdomen: Soft, Non Tender, Non-Distended, No Hepato-splenomegaly Extremities: No edema, Capillary Refill Less than 3 Seconds (more content not included)...[facility]08-26-2025 Progress note [facility] Medical Records Department [address] [place] [address] Progress Note - Surgery 03/19/25 1124 MR#: [id number] Acct: [id number] Name: PHI GONZALEZ Rep #:[id number] : 1965 60 From: Ele CASTRO PA-C PCP: Dr. Pepe Osullivan MD Status :ADM IN Location: MS3 [id number] Subjective Subjective Patient evaluated resting comfortably in bed. He notes feeling much improved. Hedenies any abdominal pain. He is passing a little flatus and having loose stools. He he notes tolerating full liquids. Objective Data Objective Data Vital Signs: Vital Signs Temp Pulse Resp BP Pulse Ox O2 Del Method 97.4 F L 71 18 133/77 H 99 Room Air 03/19/25 08:38 03/19/25 08:38 03/19/25 08:38 03/19/25 08:38 03/19/25 08:38 03/19/25 08:38 Oxygen Delivery Method Room Air Weight: 253 lb 15.56 oz Body Mass Index (BMI) 38.6 Intake & Output: Intake and Output for Last 24 Hours 03/17/25 03/18/25 03/19/25 23:59 23:59 23:59 Intake Total 1000.25 / 1000.25 1506.5 / 1506.5 400 / 400 Balance 1000.25 / 1000.25 1506.5 / 1506.5 400 / 400 Lab / Micro Data 03/19/25 06:31 03/19/25 06:31 Labs: Laboratory Results - last 24 hr 03/18/25 11:42: POC Glucose 119 H 03/18/25 17:25: POC Glucose 91 03/18/25 22:03: POC Glucose 117 H 03/19/25 06:31: WBC 9.8, RBC 4.57 L, Hgb 13.5, Hct 39.2 L, MCV 85.8, MCH 29.5, MCHC 34.4, RDW Std Deviation 36.9, RDW Coeff of Tre 11.8, Plt Count 330, MPV 9.1, Immature Gran % (Auto) 0.500, Neut % (Auto) 76.2 H, Lymph % (Auto) 12.8 L, [place] % (Auto) 7.2, Eos % (Auto) 2.8, Baso % (Auto) 0.5, Absolute Neuts (auto) 7.5, Absolute Lymphs (auto) 1.26, Nucleated RBC % 0, Sodium 137, Potassium 3.4, Chloride 102, Carbon Dioxide 22.8, Anion Gap 12, BUN 12, Creatinine 0.88, Estim Creat Clear Calc 108.63, Est GFR (MDRD) Non-Af 98, BUN/Creatinine Ratio 13.6, Glucose 98, Calcium 8.6 03/19/25 06:32: POC Glucose 104 Physical Exam GI GI Narrative: Abdomen- obese, nontender Assessment & Plan Assessment/Plan (1) Colonic mass: (2) Ischemic colitis: PLAN: Plan I am following this patient in conjunction with Dr. Boykin in Dr. Caceres's absence. he has independently evaluated this patient. Patient completed c-scope with Dr. Wilburn yesterday which demonstrated ischemic colitis with an inflammatory mass. Plan is to let patient start diet if tolerates may be discharged to home on oralantibiotics Plan for a colonoscopy in 3-[address] Wilburn and follow-up in 1 month Follow-up with Dr. Caceres in 2 weeks Discussed low residue/low fiber diet with the patient Tomorrow's OR procedure canceled for the patient Charges/Coding Visit Charges Inpatient E&M: 01010 Subs Hosp L2 03/19/25 1152 Cosigner Signature (if applicable): CC: ~ Signed ADDENDUM by Dr. Miguelito Boykin MD on 03/19/25 at 1526 Addendum Patient seen and examined this morning on rounds. Agree with assessment and plan as outlined by MATTHEW Lynn Patient is a 60-year-old male admitted with abdominal pain and CT scan showing possible mass versusdiverticulitis involving the sigmoid colon.. Patient was tentatively scheduled for sigmoid colectomy with colostomy tomorrow however patient underwent colonoscopy yesterday and this seemed to be moreconsistent with inflammation and/or ischemic colitis. There did not appear to be any evidence of obstruction as the colonoscope was easily able to pass this region of colon. It was decided to treat the patient conservatively with IV antibiotics and better diet management. The plan is to repeat colonoscopy in a couple of months and then consider surgical resection if indicated. All biopsies were ne gative for malignancy. Patient will follow-up with Dr. Caceres aswell as GI. Patient is clinically doing well with passing bowel movements and tolerating diet. He is agreeable to this plan. Hopefully if surgery is ultimately required this could be performed with the intention of a primary anastomosiswhich would minimize the number of additional surgeries. He is agreeable this plan. This was discussed with Dr. Caceres as well as the hospital medicine physician caring for the patient as well 03/19/25 1526 Cosigner Signature (if applicable): cc: ~* Signed [facility]08-26-2025 Progress note Author Ele Riley [facility] Note Date/Time March 19, 2025 3: 27pm [facility] Medical Records Department [address] [place] [address] Progress Note - Surgery 03/19/25 1124 MR#: [id number] Acct: [id number] Name: PHI GONZALEZ Rep #:[id number] : 1965 60 From: Ele CASTRO PA-C PCP: Dr. Pepe Osullivan MD Status :ADM IN [facility] Subjective Patient evaluated resting comfortably in bed. He notes feeling much improved. Hedenies any abdominal pain. He is passing a little flatus and having loose stools. He he notes tolerating full liquids. Objective Data Objective Data Vital Signs: Vital Signs Temp Pulse Resp BP Pulse Ox O2 Del Method 97.4 F L 71 18 133/77 H 99 Room Air 03/19/25 08:38 03/19/25 08:38 03/19/25 08:38 03/19/25 08:38 03/19/25 08:38 03/19/25 08:38 Oxygen Delivery Method Room Air Weight: 253 lb 15.56 oz Body Mass Index (BMI) 38.6 Intake & Output: Intake and Output for Last 24 Hours 03/17/25 03/18/25 03/19/25 23:59 23:59 23:59 Intake Total 1000.25 / 1000.25 1506.5 / 1506.5 400 / 400 Balance 1000.25 / 1000.25 1506.5 / 1506.5 400 / 400 Lab / Micro Data 03/19/25 06:31 03/19/25 06:31 Labs: Laboratory Results - last 24 hr 03/18/25 11:42: POC Glucose 119 H 03/18/25 17:25: POC Glucose 91 03/18/25 22:03: POC Glucose 117 H 03/19/25 06:31: WBC 9.8, RBC 4.57 L, Hgb 13.5, Hct 39.2 L, MCV 85.8, MCH 29.5, MCHC 34.4, RDW Std Deviation 36.9, RDW Coeff of Tre 11.8, Plt Count 330, MPV 9.1, Immature Gran % (Auto) 0.500, Neut % (Auto) 76.2 H, Lymph % (Auto) 12.8 L, [place] % (Auto) 7.2, Eos % (Auto) 2.8, Baso % (Auto) 0.5, Absolute Neuts (auto) 7.5, Absolute Lymphs (auto) 1.26, Nucleated RBC % 0, Sodium 137, Potassium 3.4, Chloride 102, Carbon Dioxide 22.8, Anion Gap 12, BUN 12, Creatinine 0.88, Estim Creat Clear Calc 108.63, Est GFR (MDRD) Non-Af 98, BUN/Creatinine Ratio 13.6, Glucose 98, Calcium 8.6 03/19/25 06:32: POC Glucose 104 Physical Exam GI GI Narrative: Abdomen- obese, nontender Assessment & Plan Assessment/Plan (1) Colonic mass: (2) Ischemic colitis: PLAN: Plan I am following this patient in conjunction with Dr. Boykin in Dr. Caceres's absence. he has independently evaluated this patient. Patient completed c-scope with Dr. Wilburn yesterday which demonstrated ischemic colitis with an inflammatory mass. Plan is to let patient start diet if tolerates may be discharged to home on oralantibiotics Plan for a colonoscopy in 3-[address] Wilburn and follow-up in 1 month Follow-up with Dr. Caceres in 2 weeks Discussed low residue/low fiber diet with the patient Tomorrow's OR procedure canceled for the patient Charges/Coding Visit Charges Inpatient E&M: 65454 Subs Hosp L2 03/19/25 1152 <Electronically signed by Ele Riley PA PA-C> Cosigner Signature (if applicable): CC: ~ Signed ADDENDUM by Dr. Miguelito Boykin MD on 03/19/25 at 1526 Addendum Patient seen and examined this morning on rounds. Agree with assessment and plan as outlined by MATTHEW Lynn Patient is a 60-year-old male admitted with abdominal pain and CT scan showing possible mass versus diverticulitis involving the sigmoid colon.. Patient was tentatively scheduled for sigmoid colectomy with colostomy tomorrow however patient underwent colonoscopy yesterday and this seemed to be more consistent with inflammation and/or ischemic colitis. There did not appear to be any evidence of obstruction as the colonoscope was easily able to pass this region of colon. It was decided to treat the patient conservatively with IV antibiotics and better diet management. The plan is to repeat colonoscopy in a couple of months and then consider surgical resection if indicated. All biopsies were negative for malignancy. Patient will follow-up with Dr. Caceres aswell as GI. Patient is clinically doing well with passing bowel movements and tolerating diet. He is agreeable to this plan. Hopefully if surgery is ultimately required this could be performed with the intention of a primary anastomosis which would minimize the number of additional surgeries. He is agreeable this plan. This was discussed with Dr. Caceres as well as the hospital medicine physician caring for the patient as well 03/19/25 1526<Electronically signed by Miguelito Boykin MD> Cosigner Signature (if applicable): cc: ~* Signed [facility] Work Phone: 1(553) 644-221908-26-2025 Consult note Author Heather Perdue [facility] Note Date/Time March 19, 2025 10 :32am [facility] Medical Records Department [address] [place] [address] Counseling Note - Pharmacy 03/19/25 1031 MR#: [id number] Acct: [id number] Name: PHI GONZALEZ Rep #:[id number] : 1965 60 From: Heather Perdue PCP: Dr. Pepe Osullivan MD Status :ADM IN Location: [place] [address] Pharmacy [facility] Counseling Pharmacy Service has performed discharge medication reconciliation and counseling for this patient. 1. AUGMENTIN 875MG PO BID X 8 DAYS The patient's discharge medication list was reviewed for discrepancies and discrepancies were resolved. The patient was counseled on the following discharge medications and changes in medications for homegoing were reviewed. The Reason for Use, instructions for use, and potential side effects were reviewed for all new medications. The patient's questions regarding all of their medications were answered. The patient was able to verbally demonstrate an understanding of their dischargemedications. Medications at Discharge Home Medications empagliflozin 10 mg tablet (Jardiance) 10 mg PO DAILY 03/17/25 insulin glargine 100 unit/mL (3 mL) subcutaneous pen (Lantus Solostar U-100 Insulin) 10 unit subcut QPM 03/17/25 amoxicillin 875 mg-potassium clavulanate 125 mg tablet 1 tab PO BID #16 tabs 03/19/25 03/19/25 1032 <Electronically signed by Heather Perdue> Date _ Heather Perdue Cosigner Signature (if applicable): Date CC: ~ Signed [facility] Work Phone: 1(447) 393-155408-26-2025 Discharge summary Author Henrry Tian [facility] Note Date/Time March 19, 2025 8: 57am [facility] Medical Records Department [address] [place] [address] Instructions for Home/Discharge Instructions 03/19/25 0852 MR#: [id number] Acct: [id number] Name: PHI GONZALEZ DERIK Rep #:[id number] : 1965 60 From: Henrry landers MD PCP: Dr. Pepe Osullivan MD Status :ADM IN Discharge Instructions DC O2, CPAP, BIPAP needs Home O2 Discharge instructions: No Dressing / Incision Discharge Activity: Return to Normal Activity Dressing / Incision Call your doctor if you observe: Fever of 101 or Higher, Shortness of breath, Dizziness, Fainting spells, Swelling in the ankles, Chest pain and Increased palpitations (irregular heartbeat) Follow Up Care Test Results: Test results from this visit will be discussed in further detail at your follow- up appointment, if applicable. Discharge Plan Admission Admit Date/Time: 03/17/25 12:22 Attending Provider: Henrry Tian Primary Care Provider: Pepe Osullivan Consulting Providers: Colby Romo; Sae Wilburn; Gwendolyn Cooper; Klarissa Butler; Caitie Sher; Fadi Caceres; Benitez Bianchi Instructions Patient Instructions: Diabetes Food Tips Ch, Diabetes Exercise Program Start, Diabetes Fitness Progress, Diabetes Carbs Fats Protein Discharge Orders/Prescriptions Prescriptions: New amoxicillin-pot clavulanate 875-125 mg tablet 1 tab PO BID Qty: 16 0RF Continued Jardiance 10 mg tablet 10 mg PO DAILY insulin glargine [Lantus Solostar U-100 Insulin] 100 unit/mL (3 mL) insulin pen 10 unit subcut QPM Referrals / Follow Up: Pepe Osullivan MD [Primary Care Provider] - Within 1 Week Fadi Caceres MD [Med Staff - Active Staff] - Within 2 Weeks Sae Wilburn DO [Med Staff - Active Staff] - Within 1 Month Disposition Disposition (needs filled in before D/C Order can be placed): Home, Self Care 03/19/25 0857<Electronically signed by Henrry Tian MD>Henrry Tian MD CC: MANAGEMENT INTERNSHIPDanielle Cooper; MANAGEMENT INTERNSHIPKimC Klarissa Butler; Dr. Pepe Osullivan MD; Dr. Benitez Bianchi MD; Dr. Fadi Caceres MD; Dr. Colby Romo MD; MATTHEW Brizuela; Sae Wilburn DO ~ Signed [facility] Work Phone: 1(552) 339-719208-26-2025 Consult note [facility] Medical Records Department [address] [place] [address] Counseling Note - Pharmacy 03/19/25 1031 MR#: [id number] Acct: [id number] Name: PHI GONZALEZ Rep #:[id number] : 1965 60 From: Heather Perdue PCP: Dr. Pepe Osullivan MD Status :ADM IN Y Location: [place] Pharmacy [facility] Counseling Pharmacy Service has performed discharge medication reconciliation and counseling for this patient. 1. AUGMENTIN 875MG PO BID X 8 DAYS The patient's discharge medication list was reviewed for discrepancies and discrepancies were resolved. The patient was counseled on the following discharge medications and changes in medications for homegoing were reviewed. The Reason for Use, instructions for use, and potential side effects were reviewed for all new medications. The patient's questions regarding all of their medications were answered. The patient was able to verbally demonstrate an understanding of their dischargemedications. Medications at Discharge Home Medications empagliflozin 10 mg tablet (Jardiance) 10 mg PO DAILY 03/17/25 insulin glargine 100 unit/mL (3 mL) subcutaneous pen (Lantus Solostar U-100 Insulin) 10 unit subcutQPM 03/17/25 amoxicillin 875 mg-potassium clavulanate 125 mg tablet 1 tab PO BID #16 tabs 03/19/25 03/19/25 1032 Date _ Heather Kelley Signature (if applicable): Date CC: ~ Signed [facility]08-26-2025 Discharge summary [facility] Medical Records Department [address] [place] [address] Instructions for Home/Discharge Instructions 03/19/25 0852 MR#: [id number] Acct: [id number] Name: PHI GONZALEZ Rep #:[id number] : 1965 60 From: Henrry landers MD PCP: Dr. Pepe Osullivan MD Status :ADM IN Discharge Instructions DC O2, CPAP, BIPAP needs Home O2 Discharge instructions: No Dressing / Incision Discharge Activity: Return to Normal Activity Dressing / Incision Call your doctor if you observe: Fever of 101 or Higher, Shortness of breath, Dizziness, Fainting spells, Swelling in the ankles, Chest pain and Increased palpitations (irregular heartbeat) Follow Up Care Test Results: Test results from this visit will be discussed in further detail at your follow- up appointment, if applicable. Discharge Plan Admission Admit Date/Time: 03/17/25 12:22 Attending Provider: Henrry Tian Primary Care Provider: Pepe Osullivan Consulting Providers: Colby Romo; Sae Wilburn; Gwendolyn Cooper; Klarissa Butler; Caitie Sher; Fadi Caceres; Benitez Bianchi Instructions Patient Instructions: Diabetes Food Tips Ch, Diabetes Exercise Program Start, Diabetes Fitness Progress, Diabetes Carbs Fats Protein Discharge Orders/Prescriptions Prescriptions: New amoxicillin-pot clavulanate 875-125 mg tablet 1 tab PO BID Qty: 16 0RF Continued Jardiance 10 mg tablet 10 mg PO DAILY insulin glargine [Lantus Solostar U-100 Insulin] 100 unit/mL (3 mL) insulin pen 10 unit subcut QPM Referrals / Follow Up: Pepe Osullivan MD [Primary Care Provider] - Within 1 Week Fadi Caceres MD [Med Staff - Active Staff] - Within 2 Weeks Sae Wilburn DO [Med Staff - Active Staff] - Within 1 Month Disposition Disposition (needs filled in before D/C Order can be placed): Home, Self Care 03/19/25 0857Henrry Tian MD CC: MANAGEMENT INTERNSHIP-Sharda Cooper; MANAGEMENT INTERNSHIP-C Klarissa Butler; Dr. Pepe Osullivan MD; Dr. Benitez Bianchi MD; Dr. Fadi Caceres MD; Dr. Colby Romo MD; MATTHEW Brizuela; Sae Wilburn DO ~ Signed [facility]08-25-2025 Consult note Author Nick Carter [facility] Note Date/Time March 18, 2025 3: 51pm [facility] Medical Records Department [address] [place] [address] Anesthesia Postop Eval I 03/18/25 1551 MR#: [id number] Acct: [id number] Name: PHI GONZALEZ Rep #:[id number] : 1965 60 From: Nick MEJIA PCP: Dr. Pepe Osullivan MD Status :ADM IN Y Race: C Location: [place] [address] Anesthesia: Postop Eval I Current Vital Signs Temperature: 97.9 F Pulse Rate: 85 Blood Pressure: 111/78 Respiratory Rate: 16 Pulse Ox: 98 Assessment Airway patent: Yes Spontaneous unlabored respirations: Yes nausea: No Vomiting: No Anesthesia Complication: No Fluid Hydration Crystalloid volume administer (ml): 500 Total IV fluid infused: 500 Progress Note Anesthesia document: Postop Eval 1 completed: Yes 03/18/25 6056 <Electronically signed by Nick Carter CRNA> Date _ Nick Carter BLOCK SAW OPERATOR Cosigner Signature: Date CC: ~ Signed [facility] Work Phone: 1(558) 771-238108-25-2025 History and physical note Author Sae Wilburn [facility] Note Date/Time March 18, 2025 3: 20pm [facility] Medical Records Department [address] [place] [address] History & Physical Exam 03/18/25 1516 MR#: [id number] Acct: [id number] Name: PHI GONZALEZ Rep #:[id number] : 1965 60 From: Sae Wilburn DO PCP: Dr. Pepe Osullivan MD Status :ADM IN Location: [place] [address] HPI - General General Date of Admission: 03/17/25 Date of Service: 03/18/25 Chief Complaint: Constipation HPI Narrative PHI GONZALEZ, is a 60 M who presents with 11-day history of constipation. Patient initially presented to [place] emergency department CT of the abdomen and pelvis was questionable for diverticulitis with an abscess versus sigmoid mass. Patient did receive IV antibiotics plan was for patient to have been admitted for subsequent eval patient however requested to be transferred to [facility]. Patient did report nausea but denied any vomiting. Reports passing some mucus per rectum. CT/Abdomen/Pelvis WITH Contrast at outside institution IMPRESSION: Inflammatory sigmoid colon finding. More likely than not this is diverticulitis, but lesion has a masslike appearance is sigmoid colon carcinoma can not be entirely excluded. CT/Abdomen/Pelvis without Cont at our institution IMPRESSION: Large 10 cm lesion in the proximal to mid sigmoid colon, likely representing colon carcinoma. Diverticulitis is considered much less likely. [facility] Medical History HTN (hypertension) Diabetes Sleep apnea Home Medications ?Medication ?Instructions ?Recorded ?Last Taken ?Type empagliflozin 10 mg tablet 10 mg PO DAILY 03/17/25 Unk nown History (Jardiance) insulin glargine 100 unit/mL (3 10 unit subcut QPM Unknown History mL) subcutaneous pen (Lantus Solostar U-100 Insulin) Allergy/AdvReac Type Severity Reaction Status Date / Time lisinopril AdvReac Mild Nausea Verified 03/17/25 12:48 Surgical History no surgical history Social History Smoking Status: Never smoker ROS Constitutional Constitutional: Denies fatigue, fever(s), poor appetite, weight gain or weight loss Gastrointestinal Gastrointestinal: Denies belching, bloating, change in bowel habits, change in stool character, chewing difficulty, coffee ground emesis, constipation, cramping, diarrhea, dyspepsia, dysphagia, early satiety, excessive flatus, fecalincontinence, heartburn, hematemesis, hematochezia, hemorrhoids, loose stools, melena, nausea, odynophagia, rectal bleeding, tenesmus, vomiting or weight changes Vital Signs Vital Signs Vital Signs: 03/17/25 19:33 03/17/25 21:05 03/18/25 03:47 Temperature 98.6 F 97.3 F L Temperature Source Oral Oral Pulse Rate 81 82 Pulse Strength Respiratory Rate 18 18 Respiratory Effort Normal Respiratory Depth Normal Respiratory Pattern Normal Blood Pressure 127/79 H 132/84 H Blood Pressure Mean 95 100 Blood Pressure Source Blood Pressure Position Blood Pressure Location Pulse Ox 97 97 Oxygen Delivery Method Room Air Room Air Room Air 03/18/25 07:44 03/18/25 08:00 03/18/25 10:00 Temperature 97.2 F L Temperature Source Temporal Pulse Rate 80 Pulse Strength Normal (2+) Respiratory Rate 18 Respiratory Effort Respiratory Depth Respiratory Pattern Blood Pressure 121/71 H Blood Pressure Mean 87 Blood Pressure Source Monitor Blood Pressure Position Right Lateral Blood Pressure Location Right Arm Pulse Ox 99 Oxygen Delivery Method Room Air Room Air 03/18/25 10:30 03/18/25 13:53 03/18/25 13:53 Temperature 98.7 F 98.7 F Temperature Source Oral Oral Pulse Rate 84 84 Pulse Strength Respiratory Rate 18 18 Respiratory Effort Respiratory Depth Respiratory Pattern Blood Pressure 138/81 H Blood Pressure Mean 100 Blood Pressure Source Monitor Blood Pressure Position Semi-Fowlers Blood Pressure Location Right Arm Pulse Ox 97 96 96 Oxygen Delivery Method Room Air Room Air Room Air 03/18/25 14:32 Temperature 98.7 F Temperature Source Pulse Rate 84 Pulse Strength Respiratory Rate 18 Respiratory Effort Respiratory Depth Respiratory Pattern Blood Pressure 138/81 H Blood Pressure Mean Blood Pressure Source Blood Pressure Position Blood Pressure Location Pulse Ox 96 Oxygen Delivery Method Room Air Weight Weight: 252 lb 6.868 oz Body Mass Index (BMI) 38.3 Physical Exam Const alert, oriented x3, no apparent distress and healthy appearing General Appearance: cooperative GI normal to inspection, nondistended, normoactive bowel sounds, soft to palpation,non-tender and non-distended Percussion: normal to percussion Rectal Exam: deferred Results Lab / Micro Data 03/18/25 03:51 03/18/25 03:51 Labs: Laboratory Results - last 24 hr 03/17/25 12:55: Hemoglobin A1c 9.9 H 03/17/25 16:32: POC Glucose 128 H 03/17/25 21:08: POC Glucose 150 H 03/18/25 03:51: WBC 9.7, RBC 4.89, Hgb 14.3, Hct 41.8, MCV 85.5, MCH 29.2, MCHC 34.2, RDW Std Deviation 37.1, RDW Coeff of Tre 11.8, Plt Count 335, MPV 9.0, Immature Gran % (Auto) 0.400, Neut % (Auto) 69.0, Lymph % (Auto) 20.0, [place] % (Auto) 8.0, Eos % (Auto) 1.9, Baso % (Auto) 0.7, Absolute Neuts (auto) 6.7, Absolute Lymphs (auto) 1.94, Nucleated RBC % 0, Sodium 137, Potassium 3.3, Chloride 98, Carbon Dioxide 25.0, Anion Gap 14, BUN 12, Creatinine 1.00, Estim Creat Clear Calc 95.89, Est GFR (MDRD) Non-Af 86, BUN/Creatinine Ratio 12.0, Glucose 114 H, Calcium 9.1, TSH 3.780 03/18/25 06:35: POC Glucose 127 H 03/18/25 11:42: POC Glucose 119 H Imaging Radiology Impression Abdomen/Pelvis CT 03/17/25 12:53 IMPRESSION: Inflammatory sigmoid colon finding. More likely than not this is diverticulitis, but lesion has a masslike appearance is sigmoid colon carcinoma can not be entirely excluded. Subtle suggestion of radiolucent gallstones. Consider gallbladder ultrasound follow-up if clinically relevant Reading [facility]en/Pelvis CT 03/17/25 19:41 IMPRESSION: Large 10 cm lesion in the proximal to mid sigmoid colon, likely representing colon carcinoma. Diverticulitis is considered much less likely. Reading [facility] Assessment & Plan Assessment/Plan (1) Large bowel obstruction: (2) Colonic mass: PLAN: Plan Patient is a 60-year-old gentleman presenting with 11-day history of constipation found to have colonic mass on imaging study obtained on outside hospital and at our hospital in a patient with new onset constipation and weightloss. He will undergo colonoscopy to evaluate his lower GI tract. He was explained alternatives, risk and benefits include not withstanding bleeding, infection, sepsis, perforation, need for charge and . He will have an ASA of 3. Charges/Coding Visit Charges Inpatient E&M: 02133 Init Hosp L2 03/18/25 1520 <Electronically signed by Saebriana Wilburn DO> Cosigner Signature (if applicable): CC: Dr. Pepe Osullivan MD; Sae Friend, DO~ Signed [facility] Work Phone: 1(278) 422-837508-25-2025 Consult note Author Sarath Talamantes [facility] Note Date/Time March 18, 2025 [facility]: [facility] [address] [place] [address] Pre-Anesthesia Evaluation 03/18/25 1432 MR#: [id number] Acct: [id number] Name: PHI GONZALEZ Rep #:[id number] : 1965 60 From: Sarath Talamantes MD PCP: Dr. Pepe Osullivan MD Status :ADM IN Y Race: C Location: [place] -1 ASA Classification* ASA Classification ASA Classification: 3 Assessment & Plan Anesthesia* Anesthesia Assessment Anesthesia Assessment: Discussed sedation and/or anesthesia options, risks, benefits, and alternatives with patient/parents/legal guardian/POA. Questions invited. The patient/parents/legal guardian/POA seems to understand and agrees to proceedwith anesthesia plan. Reviewed the physical assessment, medical history, allergy history and patient home medications list prior to surgery/procedure/anesthetic and documented any changes. Performed airway and anesthesia risk assessments. Anesthesia Type Anesthesia Type: MAC Anesthesia Focused Assessment* Temperature: 98.7 F Pulse Rate: 84 Blood Pressure: 138/81 Respiratory Rate: 18 Pulse Ox: 96 Oxygen Delivery Method: Room Air Airway Assessment Mouth opens: 2 cm Mallampati Score: II Teeth Condition: Intact Labs Anesthesia Preop lab: CBC WBC 9.7 K/mm3 (4.4-11.0) 03/18/25 03:51 03/18/25 RBC 4.89 M/mm3 (4.6-6.2) 03/18/25 03:51 03/18/25 Hgb 14.3 g/dL (13.0-16.5) 03/18/25 03:51 03/18/25 Hct 41.8 % (40-54) 03/18/25 03:51 03/18/25 Plt Count 335 K/mm3 (150-450) 03/18/25 03:51 03/18/25 CHEMISTRY Potassium 3.3 mmol/L (3.3-5.1) 03/18/25 03:51 03/18/25 Sodium 137 mmol/L (133-145) 03/18/25 03:51 03/18/25 Magnesium 2.3 mg/dL (1.5-2.2) H 03/17/25 12:55 03/17/25 Phosphorus 2.9 mg/dL (2.7-4.5) 03/17/25 12:55 03/17/25 BUN 12 mg/dL (4-19) 03/18/25 03:51 03/18/25 Creatinine 1.00 mg/dL (0.70-1.20) 03/18/25 03:51 03/18/25 Glucose 114 mg/dL (70-99) H 03/18/25 03:51 03/18/25 POC Glucose 119 mg/dL (74-106) H 03/18/25 11:42 03/18/25 TSH 3.780 uIU/mL (0.300-4.200) 03/18/25 03:51 02/23 12/16 COAG Pre-Assessment Diagnosis/Proposed Procedure Planned Operative Procedure(s): Colonoscopy Anesthesia History Anesthesia History - core mounter: Anesthesia History - core mounter Hx Hospitalization Any Problems With Anesthesia No 03/18/25 03:44 Cholinesterase deficiency No 03/18/25 03:44 You/Your Family Experience fever (hyperthermia) with Relationship Recent Exposure to Contagious No 03/18/25 03:44 Disease Does patient have nerve No 03/18/25 03:44 stimulator Patient instructed to have device shut off --Does patient have Pacemaker or ICD? When Was Last Pacemaker Check QUESTION #4 FULL TEXT: You/Your Family Experience fever (hyperthermia) with Anesthesia Last Oral Intake Last Oral intake: Last Oral Intake NPO since 00:00 03/18/25 13:53 Meds taken in AM with sips of water? Meds patient instructed to take am of surgery PONV PONV - core mounter: PONV - core mounter Female HX of Motion Sickness HX of N/V After Surgery Non-Smoker Duration of Surgery greater than 60 minutes Number of Risk Factors PONV Score Height & Weight Height & Weight: Anesthesia: Height & Weight Height 5 ft 8 in 03/18/25 13:53 Weight: 114.5 kg 03/18/25 13:53 Body Mass Index (BMI) 38.3 03/18/25 13:53 Respiratory Assessment Respiratory Assessment - core mounter: Respiratory Tract Infection Hx - core mounter Hx Respiratory Tract Infection No 03/18/25 03:44 STOP Sleep Apnea STOP Sleep Apnea - core mounter: STOP Sleep Apnea - core mounter Hx Hypertension Yes 03/17/25 12:22 Hx Sleep Apnea Yes 03/17/25 12:22 CPAP No 03/17/25 12:22 BIPAP No 03/17/25 12:22 Do you snore loudly (louder than talking or can be heard Do you often feel tired/ fatigued/ sleepy during daytime? Has anyone observed you stop breathing during sleep? STOP Results Positive 03/17/25 12:22 QUESTION #5 FULL TEXT : Do you snore loudly (louder than talking or can be heard through closed doors)? Tobacco Use History Tobacco Use History - core mounter: Tobacco Use History - core mounter Tobacco Use Smoking Status Never smoker 03/17/25 12:22 Hx Tobacco Use No 03/17/25 12:22 Years Smoking Packs Smoked per Day Smoking Cessation Date was within the last 15 years Hx Smoking Cessation Date Hx Smoking Cessation Counseling Hematologic Medial History Hematologic Hx - core mounter: Hematologic Medical Hx - quantitative analyst Hx of Blood Transfusion No 03/17/25 12:22 Hx of Transfusion in last 3 No 03/17/25 12:22 Months Date of Last Transfusion (if within last 3 months) Ever experience any problems No 03/17/25 12:22 with transfusion(s)? Specify any problems Hx of Preganancy in last 3 N/A 03/17/25 12:22 Months Nurse Filling Out Transfusion KMESSENGE 03/17/25 12:22 & Questions: Date: 03/17/25 03/17/25 12:22 Time: 12:36 03/17/25 12:22 Patient unable to answer at this time (ie. confused, unrespo /Reproduction History /Reproductive History - core mounter: /Reproductive Hx- core mounter Hx Now Gestational Age (in weeks): EDC: Hx Hx Para Hx Section SAB Active Medications Active Medications: Current Medications Generic Name Dose Route Start Last Admin Trade Name Freq PRN Reason Stop Dose Admin Acetaminophen 650 mg 03/17/25 12:33 03/17/25 19:30 Acetaminophen 325 Mg Tablet PO 650 mg Q6H PRN PRN Administration Pain 1-10 Or Fever>100.7 Al Hydroxide/Mg Hydroxide 30 ml 03/17/25 12:33 Mag Hydrox/Al Hydrox/Simeth 30 Ml Udc PO Q6H PRN PRN Gastric Burning Albuterol Sulfate 2.5 mg 03/17/25 12:33 Albuterol 2.5 Mg/3 Ml Vial.Neb. INHALATION Q2H PRN PRN SOB &/OR WHEEZING Glucagon 1 mg 03/17/25 12:54 Glucagon 1 Mg/Ml Syringe IM X1 PRN Hypoglycemia Protocol Guaifenesin 20 ml 03/17/25 12:33 Guaifenesin 10 Ml Udc (200mg/10ml) PO Q4H PRN PRN COUGH Sodium Chloride 250 mls @ 15 mls/hr 03/17/25 12:24 03/18/25 05:15 IV 0 mls/hr .[id number] PRN Infusion Saline Flush Sodium Chloride 250 mls @ 15 mls/hr 03/17/25 12:24 IV .[id number] PRN Additional IVPB Infusion Dextrose 250 mls @ 0 mls/hr 03/17/25 12:54 Dextrose 10%-Water IV .Q0M PRN HYPOGLYCEMIA Protocol As Directed Piperacillin Sod/Tazobactam 50 mls @ 12.5 mls/hr 03/17/25 22:00 03/18/25 09:15 Sod 3.375 gm/ Sodium Chloride IV Infused Q8 DIDI Infusion Sodium Chloride 1,000 mls @ 75 mls/hr 03/18/25 09:30 03/18/25 09:46 IV 75 mls/hr .[id number] DIDI Administration Lactated Ringer's 1,000 mls @ 15 mls/hr 03/18/25 14:15 03/18/25 14:23 IV 15 mls/hr .Q48H DIDI Administration Insulin Glargine 10 unit 03/17/25 22:00 03/17/25 21:09 Insulin Glargine-Yfgn 100 Unit/Ml Pen SC Not Given QHS DIDI Protocol Insulin Human Lispro 0 unit 03/17/25 16:00 03/18/25 14:18 Insulin Lispro 100 Unit/Ml Insuln.Pen SC Not Given ACHS DIDI Protocol Melatonin 3 mg 03/17/25 12:33 Melatonin 3 Mg Tablet PO QHS PRN PRN INSOMNIA Ondansetron HCl 4 mg 03/17/25 12:33 Ondansetron 4 Mg/2 Ml Vial IV Q8H PRN PRN NAUSEA/VOMITING Potassium Chloride 20 meq 03/17/25 17:00 03/18/25 09:51 Potassium Chloride Oral Tablet 20 Meq PO Not Given BIDCM DIDI Sodium Chloride 10 - 40 ml 03/17/25 12:24 03/17/25 21:11 0.9% Saline Lock 10 Ml Syringe IV 10 ml UD PRN Administration SALINE FLUSH PFSH Medical History HTN (hypertension) Diabetes Sleep apnea Home Medications ?Medication ?Instructions ?Recorded ?Last Taken ?Type empagliflozin 10 mg tablet 10 mg PO DAILY 03/17/25 Unk nown History (Jardiance) insulin glargine 100 unit/mL (3 10 unit subcut QPM Unknown History mL) subcutaneous pen (Lantus Solostar U-100 Insulin) Allergy/AdvReac Type Severity Reaction Status Date / Time lisinopril AdvReac Mild Nausea Verified 03/17/25 12:48 Surgical History no surgical history Social History (System 03/08/24 @ 13:33 by Hetal Echols) Smoking Status: Never smoker Review of Systems (Anesthesia) ROS Narrative System reviewed and no additional complaints, except as documented. 03/18/25 1432 <Electronically signed by Sarath Jim D> Date _ Sarath Talamantes MD Cosigner Signature: Date CC: ~ Signed [facility] Work Phone: 1(296) 312-415408-25-2025 Procedure note [facility] Medical Records Department [address] [place] [address] Colonoscopy Report MR#: [id number] Acct: [id number] Name: PHI GONZALEZ Rep #:[id number] : 1965 60 From: Sae Wilburn DO PCP: Dr. Pepe Osullivan MD Status :ADM IN Patient Name: Phi Gonzalez Procedure Date: 03/18/2025 3:19 PM Date of : 1965 Age: 60 Procedure: Colonoscopy Indications: Abdominal pain in the left lower quadrant, Abnormal CT of the GI tract Providers: Sae Wilburn DO Medicines: Monitored Anesthesia Care Patient Profile: This is a 60 year old male. Refer to note in patient chart for documentation of history and physical. Last Colonoscopy: several years ago. Complications: No immediate complications. Procedure: Pre-Anesthesia Assessment: - Prior to the procedure, a History and Physical was performed, and patient medications and allergies were reviewed. The patient is competent. The risks and benefits of the procedure and the sedation options and risks were discussed with the patient. All questions were answered and informed consent was obtained. Patient identification and proposed procedure were verified by the physician in the pre-procedure area. Mental Status Examination: alert and oriented. Airway Examination: normal oropharyngeal airway and neck mobility. Respiratory Examination: clear to auscultation. CV Examination: normal. Prophylactic Antibiotics: The patient does not require prophylactic antibiotics. Prior Anticoagulants: The patient has taken no anticoagulant or antiplatelet agents. ASA Grade Assessment: III - A patient with severe systemic disease. After reviewing the risks and benefits, the patient was deemed in satisfactory condition to undergo the procedure. The anesthesia plan was to use monitored anesthesia care (MAC). Immediately prior to administration of medications, the patient was re-assessed for adequacy to receive sedatives. The heart rate, respiratory rate, oxygen saturations, blood pressure, adequacy of pulmonary ventilation, and response to care were monitored throughout the procedure. The physical status of the patient was re-assessed after the procedure. After I obtained informed consent, the scope was passed under direct vision. Throughout the procedure, the patient's blood pressure, pulse, and oxygen saturations were monitored continuously. The Colonoscope was introduced through the anus and advanced to the cecum, identified by appendiceal orifice and ileocecal valve. The colonoscopy was performed without difficulty. The patient tolerated the procedure well. The quality of the bowel preparation was poor. Anatomical landmarks were photographed. Scope In: 3:32:50 PM Scope Out: 3:43:03 PM Total Procedure Duration Time 0 hours 10 minutes 13 seconds Findings: The perianal and digital rectal examinations were normal. Multiple small and large-mouthed diverticula were found in the recto-sigmoid colon, sigmoid colon and descending colon. Segmental severe inflammation characterized by granularity and deep ulcerations was found in the recto-sigmoid colon, in the sigmoid colon and in the descending colon. Biopsies were taken with a cold forceps for histology. Verification of patient identification for the specimen was done. Estimated blood loss was minimal. An ulcerated non-obstructing large mass was found in the sigmoid colon and in the descending colon. The mass was circumferential. The mass measured seven cm in length. In addition, its diameter measured four mm. No bleeding was present. This was biopsied with a cold forceps for histology and diagnostic purposes. Verification of patient identification for the specimen was done. Estimated blood loss was minimal. A large amount of stool was found in the sigmoid colon, in the descending colon, at the splenic flexure, in the transverse colon, at the hepatic flexure, in the ascending colon and in the cecum. Impression: - Preparation of the colon was poor. - Diverticulosis in the recto-sigmoid colon, in the sigmoid colon and in the descending colon. - Segmental severe inflammation was found in the recto-sigmoid colon, in the sigmoid colon and in the descending colon secondary to ischemic colitis. Biopsied. - Benign tumor in the sigmoid colon and in the descending colon. Biopsied. - Stool in the sigmoid colon, in the descending colon, at the splenic flexure, in the transverse colon, at the hepatic flexure, in the ascending colon and in the cecum. Recommendation: - Return patient to [facility] for [facility] care. - Full liquid diet today. - Continue present medications. - Await pathology results. - Repeat colonoscopy in 4 months for surveillance. Procedure Code(s): --- Professional --- 95846, Colonoscopy, flexible; with biopsy, single or multiple CPT copyright 2021 [employer]. All rights reserved. The codes documented in this report are preliminary and upon oil tester review may be revised to meet current compliance requirements. Sae Wilburn DO 03/18/2025 3:59:43 PM This report has been signed electronically. Number of Addenda: 0 Note Initiated On: 03/18/2025 3:19 PM 03/18/25 1559 Date _ Sae Lott Signature: Date (if indicated) CC: Dr. Pepe Osullivan MD; Sae Wilburn DO ~ Date Dictated: 03/18/25 1519 Date Transcribed: Bag Inspector: RF Signed [facility]08-25-2025 Procedure note [facility] Medical Records Department [address] [place] [address] Provation Physician Letter MR#: [id number] Acct: [id number] Name: PHI GONZALEZ Rep #:[id number] : 1965 60 From: Sae Wilburn DO PCP: Dr. Pepe Osullivan MD Status :ADM IN 03/18/2025 Pepe Osullivan Re : Colonoscopy procedure for Phi Gonzalez Lisa Osullivan This procedure was performed on Tuesday, March 18, 2025. My impressions and recommendations are as follows: Impressions : - Preparation of the colon was poor. - Diverticulosis in the recto-sigmoid colon, in the sigmoid colon and in the descending colon. - Segmental severe inflammation was found in the recto-sigmoid colon, in the sigmoid colon and in the descending colon secondary to ischemic colitis. Biopsied. - Benign tumor in the sigmoid colon and in the descending colon. Biopsied. - Stool in the sigmoid colon, in the descending colon, at the splenic flexure, in the transverse colon, at the hepatic flexure, in the ascending colon and in the cecum. Recommendations : - Return patient to [facility] for ongoing care. - Full liquid diet today. - Continue present medications. - Await pathology results. - Repeat colonoscopy in 4 months for surveillance. My findings are described in the full procedure note, which is enclosed. If I can be of further assistance, please feel free to contact me at . Sincerely, Sae Wilburn DO 03/18/2025 3:59:43 PM This report has been signed electronically. 03/18/25 1559 Date _ Sae Wilburn DO Cosigner Signature: Date (if indicated) CC: MANAGEMENT INTERNSHIPDanielle Cooper; ISABELLE Butler; Dr. Pepe Osullivan MD; Dr. Benitez Bianchi MD; Dr. Fadi Caceres MD; Dr. Henrry Tian MD; Dr. Colby Romo MD; MATTHEW Brizuela; Sae Wilburn DO ~ Date Dictated: 03/18/25 1519 Date Transcribed: Bag Inspector: RF Signed [facility]08-25-2025 Consult note [facility] Medical Records Department [address] [place] [address] Anesthesia Postop Eval I 03/18/251550 MR#: [id number] Acct: [id number] Name: PHI GONZALEZ Rep #:[id number] : 1965 60 From: Nick MEJIA PCP: Dr. Pepe Osullivan MD Status :ADM IN Y Race: C Location: [place] [address] Anesthesia: Postop Eval I Current Vital Signs Temperature: 97.9 F Pulse Rate: 85 Blood Pressure: 111/78 Respiratory Rate: 16 Pulse Ox: 98 Assessment Airway patent: Yes Spontaneous unlabored respirations: Yes nausea: No Vomiting: No Anesthesia Complication: No Fluid Hydration Crystalloid volume administer (ml): 500 Total IV fluid infused: 500 Progress Note Anesthesia document: Postop Eval 1 completed: Yes 03/18/25 155 BLOCK SAW OPERATOR> Date _ Nick Carter CRNA Cosigner Signature: Date CC: ~ Signed [facility]08-25-2025 History and physical note [facility] Medical Records Department [address] [place] [address] History & Physical Exam 03/18/25 1516 MR#: [id number] Acct: [id number] Name: PHI GONZALEZ Rep #:[id number] : 1965 60 From: Sae Wilburn DO PCP: Dr. Pepe Osullivan MD Status :ADM IN [place] [facility] [place] HPI - General General Date of Admission: 03/17/25 Date of Service: 03/18/25 Chief Complaint: Constipation HPI Narrative PHI GONZALEZ, is a 60 M who presents with 11-day history of constipation. Patient initially presented to [place] emergency department CT of the abdomen and pelvis was questionable for diverticulitis with an abscess versus sigmoid mass. Patient did receive IV antibiotics plan was for patient to have been admitted for subsequent eval patient however requested to be transferred to [facility]. Patient didreport nausea but denied any vomiting. Reports passing some mucus per rectum. CT/Abdomen/Pelvis WITH Contrast at outside institution IMPRESSION: Inflammatory sigmoid colon finding. More likely than not this is diverticulitis, but lesion has a masslike appearance is sigmoid colon carcinoma can not be entirely excluded. CT/Abdomen/Pelvis without Cont at our institution IMPRESSION: Large 10 cm lesion in the proximal to mid sigmoid colon, likely representing colon carcinoma. Diverticulitis is considered much less likely. [facility] Medical History HTN (hypertension) Diabetes Sleep apnea Home Medications ?Medication ?Instructions ?Recorded ?Last Taken ?Type empagliflozin 10 mg tablet 10 mg PO DAILY 03/17/25 Unk nown History (Jardiance) insulin glargine 100 unit/mL (3 10 unit subcut QPM Unknown History mL) subcutaneous pen (Lantus Solostar U-100 Insulin) Allergy/AdvReac Type Severity Reaction Status Date / Time lisinopril AdvReac Mild Nausea Verified 03/17/25 12:48 Surgical History no surgical history Social History Smoking Status: Never smoker ROS Constitutional Constitutional: Denies fatigue, fever(s), poor appetite, weight gain or weight loss Gastrointestinal Gastrointestinal: Denies belching, bloating, change in bowel habits, change in stool character, chewing difficulty, coffee ground emesis, constipation, cramping, diarrhea, dyspepsia, dysphagia, earlysatiety, excessive flatus, fecalincontinence, heartburn, hematemesis, hematochezia, hemorrhoids, loose stools, melena, nausea, odynophagia, rectal bleeding, tenesmus, vomiting or weight changes Vital Signs Vital Signs Vital Signs: 03/17/25 19:33 03/17/25 21:05 03/18/25 03:47 Temperature 98.6 F 97.3 F L Temperature Source Oral Oral Pulse Rate 81 82 Pulse Strength Respiratory Rate 18 18 Respiratory Effort Normal Respiratory Depth Normal Respiratory Pattern Normal Blood Pressure 127/79 H 132/84 H Blood Pressure Mean 95 100 Blood Pressure Source Blood Pressure Position Blood Pressure Location Pulse Ox 97 97 Oxygen Delivery Method Room Air Room Air Room Air 03/18/25 07:44 03/18/25 08:00 03/18/25 10:00 Temperature 97.2 F L Temperature Source Temporal Pulse Rate 80 Pulse Strength Normal (2+) Respiratory Rate 18 Respiratory Effort Respiratory Depth Respiratory Pattern Blood Pressure 121/71 H Blood Pressure Mean 87 Blood Pressure Source Monitor Blood Pressure Position Right Lateral Blood Pressure Location Right Arm Pulse Ox 99 Oxygen Delivery Method Room Air Room Air 03/18/25 10:30 03/18/25 13:53 03/18/25 13:53 Temperature 98.7 F 98.7 F Temperature Source Oral Oral Pulse Rate 84 84 Pulse Strength Respiratory Rate 18 18 Respiratory Effort Respiratory Depth Respiratory Pattern Blood Pressure 138/81 H Blood Pressure Mean 100 Blood Pressure Source Monitor Blood Pressure Position Semi-Fowlers Blood Pressure Location Right Arm Pulse Ox 97 96 96 Oxygen Delivery Method Room Air Room Air Room Air 03/18/25 14:32 Temperature 98.7 F Temperature Source Pulse Rate 84 Pulse Strength Respiratory Rate 18 Respiratory Effort Respiratory Depth Respiratory Pattern Blood Pressure 138/81 H Blood Pressure Mean Blood Pressure Source Blood Pressure Position Blood Pressure Location Pulse Ox 96 Oxygen Delivery Method Room Air Weight Weight: 252 lb 6.868 oz Body Mass Index (BMI) 38.3 Physical Exam Const alert, oriented x3, no apparent distress and healthy appearing General Appearance: cooperative GI normal to inspection, nondistended, normoactive bowel sounds, soft to palpation,non-tender and non-distended Percussion: normal to percussion Rectal Exam: deferred Results Lab / Micro Data 03/18/25 03:51 03/18/25 03:51 Labs: Laboratory Results - last 24 hr 03/17/25 12:55: Hemoglobin A1c 9.9 H 03/17/25 16:32: POC Glucose 128 H 03/17/25 21:08: POC Glucose 150 H 03/18/25 03:51: WBC 9.7, RBC 4.89, Hgb 14.3, Hct 41.8, MCV 85.5, MCH 29.2, MCHC 34.2, RDW Std Deviation 37.1, RDW Coeff of Tre 11.8, Plt Count 335, MPV 9.0, Immature Gran % (Auto) 0.400, Neut % (Auto) 69.0, Lymph % (Auto) 20.0, [place] % (Auto) 8.0, Eos % (Auto) 1.9, Baso % (Auto) 0.7, Absolute Neuts (auto) 6.7, Absolute Lymphs (auto) 1.94, Nucleated RBC % 0, Sodium 137, Potassium 3.3, Chloride 98, Carbon Dioxide 25.0, Anion Gap 14, BUN 12, Creatinine 1.00, Estim Creat Clear Calc 95.89, Est GFR (MDRD) Non-Af 86, BUN/Creatinine Ratio 12.0, Glucose 114 H, Calcium 9.1, TSH 3.780 03/18/25 06:35: POC Glucose 127 H 03/18/25 11:42: POC Glucose 119 H Imaging Radiology Impression Abdomen/Pelvis CT 03/17/25 12:53 IMPRESSION: Inflammatory sigmoid colon finding. More likely than not this is diverticulitis, but lesion has a masslike appearance is sigmoid colon carcinoma can not be entirely excluded. Subtle suggestion of radiolucent gallstones. Consider gallbladder ultrasound follow-up if clinically relevant Reading Location: [facility] Abdomen/Pelvis CT 03/17/25 19:41 IMPRESSION: Large 10 cm lesion in the proximal to mid sigmoid colon, likely representing colon carcinoma. Diverticulitis is considered much less likely. Reading Location: [facility] Assessment & Plan Assessment/Plan (1) Large bowel obstruction: (2) Colonic mass: PLAN: Plan Patient is a 60-year-old gentleman presenting with 11-day history of constipation found to have colonic mass on imaging study obtained on outside hospital and at our hospital in a patient with new onset constipation and weightloss. He will undergo colonoscopy to evaluate his lower GI tract. He was e xplained alternatives, risk and benefits include not withstanding bleeding, infection, sepsis, perforation, need for charge and . He will have an ASA of 3. Charges/Coding Visit Charges Inpatient E&M: 78298 Init Hosp L2 03/18/25 1520 Cosigner Signature (if applicable): CC: Dr. Pepe Osullivan MD; Sae Wilburn DO~ Signed [facility]08-25-2025 [facility] Medical Records Department [address] [place] [id number] History Physical Exam 03/18/25 1516 MR#: [id number] Acct: [id number] Name: PHI GONZALEZ Rep #: [id number] : 1965 60 From: Sae Wilburn DO PCP: Dr. Pepe Osullivan MD Status:ADM IN Location: [facility] XP441-4 HPI - General General Date of Admission: 03/17/25 Date of Service: 03/18/25 Chief Complaint: Constipation HPI Narrative HPI GONZALEZ, is a 60 M who presents with 11-day history of constipation. Patient initially presented to [place] emergency department CT of the abdomen and pelvis was questionable for diverticulitis with an abscess versus sigmoid mass. Patient did receive IV antibiotics plan was for patient to have been admitted for subsequent eval patient however requested to be transferred to [facility]. Patient did report nausea but denied any vomiting. Reports passing some mucus per rectum. CT/Abdomen/Pelvis WITH Contrast at outside institution IMPRESSION: Inflammatory sigmoid colon finding. More likely than not this is diverticulitis, but lesion has a masslike appearance is sigmoid colon carcinoma can not be entirely excluded. CT/Abdomen/Pelvis without Cont at our institution IMPRESSION: Large 10 cm lesion in the proximal to mid sigmoid colon, likely representing colon carcinoma. Diverticulitis is considered much less likely. [facility] Medical History HTN (hypertension) Diabetes Sleep apnea Home Medications ???Medication ???Instructions ???Recorded ???Last Taken ???Type empagliflozin 10 mg tablet 10 mg PO DAILY 03/17/25 Unknown Hi story (Jardiance) insulin glargine 100 unit/mL (3 10 unit subcut QPM 03/17/25 Unknow n History mL) subcutaneous pen (Lantus Solostar U-100 Insulin) Allergy/AdvReac Type Severity Reaction Status Date / Time lisinopril AdvReac Mild Nausea Verified 03/17/25 12:48 Surgical History no surgical history Social History Smoking Status: Never smoker ROS Constitutional Constitutional: Denies fatigue, fever(s), poor appetite, weight gain or weight loss Gastrointestinal Gastrointestinal: Denies belching, bloating, change in bowel habits, change in stool character, chewing difficulty, coffee ground emesis, constipation, cramping, diarrhea, dyspepsia, dysphagia, early satiety, excessive flatus, fecal incontinence, heartburn, hematemesis, hematochezia, hemorrhoids, loose stools, melena, nausea, odynophagia, rectal bleeding, tenesmus, vomiting or weight changes Vital Signs Vital Signs Vital Signs: 03/17/25 19:33 03/17/25 21:05 03/18/25 03:47 Temperature 98.6 F 97.3 F L Temperature Source Oral Oral Pulse Rate 81 82 Pulse Strength Respiratory Rate 18 18 Respiratory Effort Normal Respiratory Depth Normal Respiratory Pattern Normal Blood Pressure 127/79 H 132/84 H Blood Pressure Mean 95 100 Blood Pressure Source Blood Pressure Position Blood Pressure Location Pulse Ox 97 97 Oxygen Delivery Method Room Air Room Air Room Air 03/18/25 07:44 03/18/25 08:00 03/18/25 10:00 Temperature 97.2 F L Temperature Source Temporal Pulse Rate 80 Pulse Strength Normal (2+) Respiratory Rate 18 Respiratory Effort Respiratory Depth Respiratory Pattern Blood Pressure 121/71 H Blood Pressure Mean 87 Blood Pressure Source Monitor Blood Pressure Position Right Lateral Blood Pressure Location Right Arm Pulse Ox 99 Oxygen Delivery Method Room Air Room Air 03/18/25 10:30 03/18/25 13:53 03/18/25 13:53 Temperature 98.7 F 98.7 F Temperature Source Oral Oral Pulse Rate 84 84 Pulse Strength Respiratory Rate 18 18 Respiratory Effort Respiratory Depth Respiratory Pattern Blood Pressure 138/81 H Blood Pressure Mean 100 Blood Pressure Source Monitor Blood Pressure Position Semi-Fowlers Blood Pressure Location Right Arm Pulse Ox 97 96 96 Oxygen Delivery Method Room Air Room Air Room Air 03/18/25 14:32 Temperature 98.7 F Temperature Source Pulse Rate 84 Pulse Strength Respiratory Rate 18 Respiratory Effort Respiratory Depth Respiratory Pattern Blood Pressure 138/81 H Blood Pressure Mean Blood Pressure Source Blood Pressure Position Blood Pressure Location Pulse Ox 96 Oxygen Delivery Method Room Air Weight Weight: 252 lb 6.868 oz Body Mass Index (BMI) 38.3 Physical Exam Const alert, oriented x3, no apparent distress and healthy appearing General Appearance: cooperative GI normal to inspection, nondistended, normoactive bowel sounds, soft to palpation, non-tender and non- dist (more content not included)...[facility]08-25-2025 Consult note [facility] Medical Records Department [address] [place] [address] Pre-Anesthesia Evaluation 03/18/25 1432 MR#: [id number] Acct: [id number] Name: PHI GONZALEZ Rep #:[id number] : 1965 60 From: Sarath Talamantes MD PCP: Dr. Pepe Osullivan MD Status :ADM IN Y Race: C [place] [facility] MS[place] 1 ASA Classification* ASA Classification ASA Classification: 3 Assessment & Plan Anesthesia* Anesthesia Assessment Anesthesia Assessment: Discussed sedation and/or anesthesia options, risks, benefits, and alternatives with patient/parents/legal guardian/POA. Questions invited. The patient/parents/legal guardian/POA seems to understand and agrees to proceedwith anesthesia plan. Reviewed the physical assessment, medical history, allergy history and patient home medications list prior to surgery/procedure/anesthetic and documented any changes. Performed airway and anesthesia risk assessments. Anesthesia Type Anesthesia Type: MAC Anesthesia Focused Assessment* Temperature: 98.7 F Pulse Rate: 84 Blood Pressure: 138/81 Respiratory Rate: 18 Pulse Ox: 96 Oxygen Delivery Method: Room Air Airway Assessment Mouth opens: 2 cm Mallampati Score: II Teeth Condition: Intact Labs Anesthesia Preop lab: CBC WBC 9.7 K/mm3 (4.4-11.0) 03/18/25 03:51 03/18/25 RBC 4.89 M/mm3 (4.6-6.2) 03/18/25 03:51 03/18/25 Hgb 14.3 g/dL (13.0-16.5) 03/18/25 03:51 03/18/25 Hct 41.8 % (40-54) 03/18/25 03:51 03/18/25 Plt Count 335 K/mm3 (150-450) 03/18/25 03:51 03/18/25 CHEMISTRY Potassium 3.3 mmol/L (3.3-5.1) 03/18/25 03:51 03/18/25 Sodium 137 mmol/L (133-145) 03/18/25 03:51 03/18/25 Magnesium 2.3 mg/dL (1.5-2.2) H 03/17/25 12:55 03/17/25 Phosphorus 2.9 mg/dL (2.7-4.5) 03/17/25 12:55 03/17/25 BUN 12 mg/dL (4-19) 03/18/25 03:51 03/18/25 Creatinine 1.00 mg/dL (0.70-1.20) 03/18/25 03:51 03/18/25 Glucose 114 mg/dL (70-99) H 03/18/25 03:51 03/18/25 POC Glucose 119 mg/dL (74-106) H 03/18/25 11:42 03/18/25 TSH 3.780 uIU/mL (0.300-4.200) 03/18/25 03:51 0812/16 COAG Pre-Assessment Diagnosis/Proposed Procedure Planned Operative Procedure(s): Colonoscopy Anesthesia History Anesthesia History - core mounter: Anesthesia History - core mounter Hx Hospitalization Any Problems With Anesthesia No 03/18/25 03:44 Cholinesterase deficiency No 03/18/25 03:44 You/Your Family Experience fever (hyperthermia) with Relationship Recent Exposure to Contagious No 03/18/25 03:44 Disease Does patient have nerve No 03/18/25 03:44 stimulator Patient instructed to have device shut off --Does patient have Pacemaker or ICD? When Was Last Pacemaker Check QUESTION #4 FULL TEXT: You/Your Family Experience fever (hyperthermia) with Anesthesia Last Oral Intake Last Oral intake: Last Oral Intake NPO since 00:00 03/18/25 13:53 Meds taken in AM with sips of water? Meds patient instructed to take am of surgery PONV PONV - core mounter: PONV - core mounter Female HX of Motion Sickness HX of N/V After Surgery Non-Smoker Duration of Surgery greater than 60 minutes Number of Risk Factors PONV Score Height & Weight Height & Weight: Anesthesia: Height & Weight Height 5 ft 8 in 03/18/25 13:53 Weight: 114.5 kg 03/18/25 13:53 Body Mass Index (BMI) 38.3 03/18/25 13:53 Respiratory Assessment Respiratory Assessment - core mounter: Respiratory Tract Infection Hx - core mounter Hx Respiratory Tract Infection No 03/18/25 03:44 STOP Sleep Apnea STOP Sleep Apnea - core mounter: STOP Sleep Apnea - core mounter Hx Hypertension Yes 03/17/25 12:22 Hx Sleep Apnea Yes 03/17/25 12:22 CPAP No 03/17/25 12:22 BIPAP No 03/17/25 12:22 Do you snore loudly (louder than talking or can be heard Do you often feel tired/ fatigued/ sleepy during daytime? Has anyone observed you stop breathing during sleep? STOP Results Positive 03/17/25 12:22 QUESTION #5 FULL TEXT : Do you snore loudly (louder than talking or can be heard through closeddoors)? Tobacco Use History Tobacco Use History - core mounter: Tobacco Use History - core mounter Tobacco Use Smoking Status Never smoker 03/17/25 12:22 Hx Tobacco Use No 03/17/25 12:22 Years Smoking Packs Smoked per Day Smoking Cessation Date was within the last 15 years Hx Smoking Cessation Date Hx Smoking Cessation Counseling Hematologic Medial History Hematologic Hx - core mounter: Hematologic Medical Hx - quantitative analyst Hx of Blood Transfusion No 03/17/25 12:22 Hx of Transfusion in last 3 No 03/17/25 12:22 Months Date of Last Transfusion (if within last 3 months) Ever experience any problems No 03/17/25 12:22 with transfusion(s)? Specify any problems Hx of Preganancy in last 3 N/A 03/17/25 12:22 Months Nurse Filling Out Transfusion KMESSENGE 03/17/25 12:22 & Questions: Date: 03/17/25 03/17/25 12:22 Time: 12:36 03/17/25 12:22 Patient unable to answer at this time (ie. confused, unrespo /Reproduction History /Reproductive History - core mounter: /Reproductive Hx- core mounter Hx Now Gestational Age (in weeks): EDC: Hx Hx Para Hx Section SAB Active Medications Active Medications: Current Medications Generic Name Dose Route Start Last Admin Trade Name Freq PRN Reason Stop Dose Admin Acetaminophen 650 mg 03/17/25 12:33 03/17/25 19:30 Acetaminophen 325 Mg Tablet PO 650 mg Q6H PRN PRN Administration Pain 1-10 Or Fever>100.7 Al Hydroxide/Mg Hydroxide 30 ml 03/17/25 12:33 Mag Hydrox/Al Hydrox/Simeth 30 Ml Udc PO Q6H PRN PRN Gastric Burning Albuterol Sulfate 2.5 mg 03/17/25 12:33 Albuterol 2.5 Mg/3 Ml Vial.Neb. INHALATION Q2H PRN PRN SOB &/OR WHEEZING Glucagon 1 mg 03/17/25 12:54 Glucagon 1 Mg/Ml Syringe IM X1 PRN Hypoglycemia Protocol Guaifenesin 20 ml 03/17/25 12:33 Guaifenesin 10 Ml Udc (200mg/10ml) PO Q4H PRN PRN COUGH Sodium Chloride 250 mls @ 15 mls/hr 03/17/25 12:24 03/18/25 05:15 IV 0 mls/hr .[id number] PRN Infusion Saline Flush Sodium Chloride 250 mls @ 15 mls/hr 03/17/25 12:24 IV .[id number] PRN Additional IVPB Infusion Dextrose 250 mls @ 0 mls/hr 03/17/25 12:54 Dextrose 10%-Water IV .Q0M PRN HYPOGLYCEMIA Protocol As Directed Piperacillin Sod/Tazobactam 50 mls @ 12.5 mls/hr 03/17/25 22:00 03/18/25 09:15 Sod 3.375 gm/ Sodium Chloride IV Infused Q8 DIDI Infusion Sodium Chloride 1,000 mls @ 75 mls/hr 03/18/25 09:30 03/18/25 09:46 IV 75 mls/hr .[id number] DIDI Administration Lactated Ringer's 1,000 mls @ 15 mls/hr 03/18/25 14:15 03/18/25 14:23 IV 15 mls/hr .Q48H DIDI Administration Insulin Glargine 10 unit 03/17/25 22:00 03/17/25 21:09 Insulin Glargine-Yfgn 100 Unit/Ml Pen SC Not Given QHS [facility] Protocol Insulin Human Lispro 0 unit 03/17/25 16:00 03/18/25 14:18 Insulin Lispro 100 Unit/Ml Insuln.Pen SC Not Given ACHS [facility] Protocol Melatonin 3 mg 03/17/25 12:33 Melatonin 3 Mg Tablet PO QHS PRN PRN INSOMNIA Ondansetron HCl 4 mg 03/17/25 12:33 Ondansetron 4 Mg/2 Ml Vial IV Q8H PRN PRN NAUSEA/VOMITING Potassium Chloride 20 meq 03/17/25 17:00 03/18/25 09:51 Potassium Chloride Oral Tablet 20 Meq PO Not Given BIDCM DIDI Sodium Chloride 10 - 40 ml 03/17/25 12:24 03/17/25 21:11 0.9% Saline Lock 10 Ml Syringe IV 10 ml UD PRN Administration SALINE FLUSH PFSH Medical History HTN (hypertension) Diabetes Sleep apnea Home Medications ?Medication ?Instructions ?Recorded ?Last Taken ?Type empagliflozin 10 mg tablet 10 mg PO DAILY 03/17/25 Unk nown History (Jardiance) insulin glargine 100 unit/mL (3 10 unit subcut QPM Unknown History mL) subcutaneous pen (Lantus Solostar U-100 Insulin) Allergy/AdvReac Type Severity Reaction Status Date / Time lisinopril AdvReac Mild Nausea Verified 03/17/25 12:48 Surgical History no surgical history Social History (System 03/08/24 @ 13:33 by Hetal Echols) Smoking Status: Never smoker Review of Systems (Anesthesia) ROS Narrative System reviewed and no additional complaints, except as documented. 03/18/25 1432 D> Date _ Sarath Wilkersonigncarla Signature: Date CC: ~ Signed [facility]08-25-2025 Progress note Author Ele Riley [facility] Note Date/Time March 18, 2025 10 :29am [facility] Medical Records Department [address] [place] [address] Progress Note - Surgery 03/18/25 1013 MR#: [id number] Acct: [id number] Name: PHI GONZALEZ Rep #:[id number] : 1965 60 From: Ele CASTRO PA-C PCP: Dr. Pepe Osullivan MD Status :ADM IN Location: [place] [address] Subjective Subjective Patient evaluated resting comfortably in bed. He is currently bowel prepping fora colonoscopy today. He notes only small amount of of loose stools. He denies any other concerns or compliants. Objective Data Objective Data Vital Signs: Vital Signs Temp Pulse Resp BP Pulse Ox O2 Del Method 97.2 F L 80 18 121/71 H 99 Room Air 03/18/25 07:44 03/18/25 07:44 03/18/25 07:44 03/18/25 07:44 03/18/25 07:44 03/18/25 07:44 Oxygen Delivery Method Room Air Weight: 252 lb 6.868 oz Body Mass Index (BMI) 38.2 Intake & Output: Intake and Output for Last 24 Hours 03/16/25 03/17/25 03/18/25 23:59 23:59 23:59 Intake Total 1000.25 / 1000.25 160 / 160 Balance 1000.25 / 1000.25 160 / 160 Lab / Micro Data 03/18/25 03:51 03/18/25 03:51 Labs: Laboratory Results - last 24 hr 03/17/25 12:55: WBC 11.6 H, RBC 4.82, Hgb 14.2, Hct 40.9, MCV 84.9, MCH 29.5, MCHC 34.7, RDW Std Deviation 35.8, RDW Coeff of Tre 11.7, Plt Count 326, MPV 8.7, Immature Gran % (Auto) 0.300, Neut % (Auto) 82.0 H, Lymph % (Auto) 10.9 L, [place] % (Auto) 6.0, Eos % (Auto) 0.5, Baso % (Auto) 0.3, Absolute Neuts (auto) 9.5 H, Absolute Lymphs (auto) 1.27, Nucleated RBC % 0, Sodium 134, Potassium 3.3, Chloride 97 L, Carbon Dioxide 23.6, Anion Gap 13, BUN 9, Creatinine 0.96, Estim Creat Clear Calc 99.89, Est GFR (MDRD) Non-Af 90, BUN/Creatinine Ratio 9.9L, Glucose 171 H, Hemoglobin A1c 9.9 H, Calcium 8.8, Phosphorus 2.9, Magnesium 2.3 H, Total Bilirubin 0.67, AST 15, ALT 12, Alkaline Phosphatase 69, Total Protein 7.3, Albumin 3.6, Globulin 3.8, Albumin/Globulin Ratio 0.9 03/17/25 16:32: POC Glucose 128 H 03/17/25 21:08: POC Glucose 150 H 03/18/25 03:51: WBC 9.7, RBC 4.89, Hgb 14.3, Hct 41.8, MCV 85.5, MCH 29.2, MCHC 34.2, RDW Std Deviation 37.1, RDW Coeff of Tre 11.8, Plt Count 335, MPV 9.0, Immature Gran % (Auto) 0.400, Neut % (Auto) 69.0, Lymph % (Auto) 20.0, [place] % (Auto) 8.0, Eos % (Auto) 1.9, Baso % (Auto) 0.7, Absolute Neuts (auto) 6.7, Absolute Lymphs (auto) 1.94, Nucleated RBC % 0, Sodium 137, Potassium 3.3, Chloride 98, Carbon Dioxide 25.0, Anion Gap 14, BUN 12, Creatinine 1.00, Estim Creat Clear Calc 95.89, Est GFR (MDRD) Non-Af 86, BUN/Creatinine Ratio 12.0, Glucose 114 H, Calcium 9.1, TSH 3.780 03/18/25 06:35: POC Glucose 127 H Radiography Diagnostic Testing: Radiology Impression Abdomen/Pelvis CT 03/17/25 12:53 IMPRESSION: Inflammatory sigmoid colon finding. More likely than not this is diverticulitis, but lesion has a masslike appearance is sigmoid colon carcinoma can not be entirely excluded. Subtle suggestion of radiolucent gallstones. Consider gallbladder ultrasound follow-up if clinically relevant Reading [facility] Abdomen/Pelvis CT 03/17/25 19:41 IMPRESSION: Large 10 cm lesion in the proximal to mid sigmoid colon, likely representing colon carcinoma. Diverticulitis is considered much less likely. Reading Location[facility] Physical Exam GI GI Narrative: Abdomen- obtunded. Soft. Non-tender Assessment & Plan Assessment/Plan (1) Colonic mass: (2) Large bowel obstruction: PLAN: Plan I am following this patient in conjunction with Dr. Caceres. He has independently evaluated this patient. Labs reviewed Repeat delayed CT scan yesterday demonstrated a 10 cm apple-core lesion within the sigmoid colon Dr. Wilburn will plan to perform a colonoscopy today Dr. Caceres has discussed a laparoscopic possible conversion to open sigmoid colectomy with possible colostomy creation on Tuesday morning We will continue to monitor this patient Charges/Coding Visit Charges Inpatient E&M: 32345 Subs Hosp L2 03/18/25 1029 <Electronically signed by Ele CASTRO PA-C> Cosigner Signature (if applicable): CC: ~ Signed [facility] Work Phone: 1(467) 647-709208-25-2025 Progress note Author Henrry Tian [facility] Note Date/Time March 18, 2025 10 :21am [facility] Medical Records Department [facility] [place] [address] Progress Note - Hospitalist 03/18/25 1017 MR#: [id number] Acct: [id number] Name: PHI GONZALEZ Rep #:[id number] : 1965 60 From: Henrry landers MD PCP: Dr. Pepe Osullivan MD Status :ADM IN Location: [place] [address] Subjective Subjective No issues overnight, doing well. Plan for colonoscopy today with plan for possible surgical intervention on Tuesday or Objective Data Objective Data Vital Signs: Vital Signs Temp Pulse Resp BP Pulse Ox O2 Del Method 97.2 F L 80 18 121/71 H 99 Room Air 03/18/25 07:44 03/18/25 07:44 03/18/25 07:44 03/18/25 07:44 03/18/25 07:44 03/18/25 07:44 Oxygen Delivery Method Room Air Weight: 252 lb 6.868 oz Body Mass Index (BMI) 38.2 Intake & Output: Intake and Output for Last 24 Hours 03/17/25 03/18/25 03/19/25 03:59 03:59 03:59 Intake Total 1050.25 / 1050.25 110 / 110 Balance 1050.25 / 1050.25 110 / 110 Lab / Micro Data 03/18/25 03:51 03/18/25 03:51 Labs: Laboratory Results - last 24 hr 03/17/25 12:55: WBC 11.6 H, RBC 4.82, Hgb 14.2, Hct 40.9, MCV 84.9, MCH 29.5, MCHC 34.7, RDW Std Deviation 35.8, RDW Coeff of Tre 11.7, Plt Count 326, MPV 8.7, Immature Gran % (Auto) 0.300, Neut % (Auto) 82.0 H, Lymph % (Auto) 10.9 L, [place] % (Auto) 6.0, Eos % (Auto) 0.5, Baso % (Auto) 0.3, Absolute Neuts (auto) 9.5 H, Absolute Lymphs (auto) 1.27, Nucleated RBC % 0, Sodium 134, Potassium 3.3, Chloride 97 L, Carbon Dioxide 23.6, Anion Gap 13, BUN 9, Creatinine 0.96, Estim Creat Clear Calc 99.89, Est GFR (MDRD) Non-Af 90, BUN/Creatinine Ratio 9.9L, Glucose 171 H, Hemoglobin A1c 9.9 H, Calcium 8.8, Phosphorus 2.9, Magnesium 2.3 H, Total Bilirubin 0.67, AST 15, ALT 12, Alkaline Phosphatase 69, Total Protein 7.3, Albumin 3.6, Globulin 3.8, Albumin/Globulin Ratio 0.9 03/17/25 16:32: POC Glucose 128 H 03/17/25 21:08: POC Glucose 150 H 03/18/25 03:51: WBC 9.7, RBC 4.89, Hgb 14.3, Hct 41.8, MCV 85.5, MCH 29.2, MCHC 34.2, RDW Std Deviation 37.1, RDW Coeff of Tre 11.8, Plt Count 335, MPV 9.0, Immature Gran % (Auto) 0.400, Neut % (Auto) 69.0, Lymph % (Auto) 20.0, [place] % (Auto) 8.0, Eos % (Auto) 1.9, Baso % (Auto) 0.7, Absolute Neuts (auto) 6.7, Absolute Lymphs (auto) 1.94, Nucleated RBC % 0, Sodium 137, Potassium 3.3, Chloride 98, Carbon Dioxide 25.0, Anion Gap 14, BUN 12, Creatinine 1.00, Estim Creat Clear Calc 95.89, Est GFR (MDRD) Non-Af 86, BUN/Creatinine Ratio 12.0, Glucose 114 H, Calcium 9.1, TSH 3.780 03/18/25 06:35: POC Glucose 127 H Radiography Diagnostic Testing: Radiology Impression Abdomen/Pelvis CT 03/17/25 12:53 IMPRESSION: Inflammatory sigmoid colon finding. More likely than not this is diverticulitis, but lesion has a masslike appearance is sigmoid colon carcinoma can not be entirely excluded. Subtle suggestion of radiolucent gallstones. Consider gallbladder ultrasound follow-up if clinically relevant Reading Location: [facility] Abdomen/Pelvis CT 03/17/25 19:41 IMPRESSION: Large 10 cm lesion in the proximal to mid sigmoid colon, likely representing colon carcinoma. Diverticulitis is considered much less likely. Reading Location: [facility] Physical Exam Narrative General: Alert, Oriented x3, Cooperative, No apparent distress HEENT: Atraumatic, PERRLA, EOMI, Normocephalic Oral: Moist Mucosa Neck: Supple, No JVD Lungs: Clear to auscultation, Normal air movement, No rhonchi, No wheeze, No rales Cardiovascular: Regular rate, Regular Rhythm, Normal S1, Normal S2, No murmurs Abdomen: Soft, Non Tender, Non-Distended, No Hepato-splenomegaly Extremities: No edema, Capillary Refill Less than 3 Seconds Skin: No rashes, No breakdown Musculoskeletal: No Tenderness to Palpation of Joints or Extremities Neurological: No focal neurological deficits, Motor Exam 5/5 strength throughout, Sensory exam intact to light touch and pain Psych/Mental Status: Normal Affect, Appropriate Assessment & Plan Assessment/Plan (1) Colonic mass: PLAN: Plan 1. Colonic mass ? Unclear etiology, he had a colonoscopy about 10 years ago which was unremarkable. ? Plan for colonoscopy today and then surgery on Tuesday or for possible ostomy ? It appears of the concern for the ostomy is due to his diabetes as his A1c was9.9 however his blood sugars here in the hospital have been in the 130s to 150s so very controlled 2. DM2 ? A1c of 9.9 ? Takes Jardiance and Lantus at home ? Accu-Cheks, sliding scale insulin ? Will monitor make adjustments as necessary DVT: SCDs Charges/Coding Visit Charges Inpatient E&M: 27835 Subs Hosp L2 03/18/25 1021 <Electronically signed by Henrry Tian MD> Cosigner Signature (if applicable): CC: ~ Signed [facility] Work Phone: 1(687) 263-180908-25-2025 Progress note [facility] Medical Records Department [address] [place] [address] Progress Note - Surgery 03/18/25 1013 MR#: [id number] Acct: [id number] Name: PHI GONZALEZ Rep #:[id number] : 1965 60 From: Ele MCGOWANC PCP: Dr. Pepe Osullivan MD Status :ADM IN Location: [facility] [id number] Subjective Subjective Patient evaluated resting comfortably in bed. He is currently bowel prepping fora colonoscopy today. He notes only small amount of of loose stools. He denies any other concerns or compliants. Objective Data Objective Data Vital Signs: Vital Signs Temp Pulse Resp BP Pulse Ox O2 Del Method 97.2 F L 80 18 121/71 H 99 Room Air 03/18/25 07:44 03/18/25 07:44 03/18/25 07:44 03/18/25 07:44 03/18/25 07:44 03/18/25 07:44 Oxygen Delivery Method Room Air Weight: 252 lb 6.868 oz Body Mass Index (BMI) 38.2 Intake & Output: Intake and Output for Last 24 Hours 03/16/25 03/17/25 03/18/25 23:59 23:59 23:59 Intake Total 1000.25 / 1000.25 160 / 160 Balance 1000.25 / 1000.25 160 / 160 Lab / Micro Data 03/18/25 03:51 03/18/25 03:51 Labs: Laboratory Results - last 24 hr 03/17/25 12:55: WBC 11.6 H, RBC 4.82, Hgb 14.2, Hct 40.9, MCV 84.9, MCH 29.5, MCHC 34.7, RDW Std Deviation 35.8, RDW Coeff of Tre 11.7, Plt Count 326, MPV 8.7, Immature Gran % (Auto) 0.300, Neut % (Auto) 82.0 H, Lymph % (Auto) 10.9 L, [place] % (Auto) 6.0, Eos % (Auto) 0.5, Baso % (Auto) 0.3, AbsoluteNeuts (auto) 9.5 H, Absolute Lymphs (auto) 1.27, Nucleated RBC % 0, Sodium 134, Potassium 3.3, Chloride 97 L, Carbon Dioxide 23.6, Anion Gap 13, BUN 9, Creatinine 0.96, Estim Creat Clear Calc 99.89, Est GFR (MDRD) Non-Af 90, BUN/Creatinine Ratio 9.9L, Glucose 171 H, Hemoglobin A1c 9.9 H, Calcium 8.8, Phosphorus 2.9, Magnesium 2.3 H, Total Bilirubin 0.67, AST 15, ALT 12, Alkaline Phosphatase 69, Total Protein 7.3, Albumin 3.6, Globulin 3.8, Albumin/Globulin Ratio 0.9 03/17/25 16:32: POC Glucose 128 H 03/17/25 21:08: POC Glucose 150 H 03/18/25 03:51: WBC 9.7, RBC 4.89, Hgb 14.3, Hct 41.8, MCV 85.5, MCH 29.2, MCHC 34.2, RDW Std Deviation 37.1, RDW Coeff of Tre 11.8, Plt Count 335, MPV 9.0, Immature Gran % (Auto) 0.400, Neut % (Auto) 69.0, Lymph % (Auto) 20.0, [place] % (Auto) 8.0, Eos % (Auto) 1.9, Baso % (Auto) 0.7, Absolute Neuts (auto) 6.7, Absolute Lymphs (auto) 1.94, Nucleated RBC % 0, Sodium 137, Potassium 3.3, Chloride 98, Carbon Dioxide 25.0, Anion Gap 14, BUN 12, Creatinine 1.00, Estim Creat Clear Calc 95.89, Est GFR (MDRD) Non-Af 86, BUN/Creatinine Ratio 12.0, Glucose 114 H, Calcium 9.1, TSH 3.780 03/18/25 06:35: POC Glucose 127 H Radiography Diagnostic Testing: Radiology Impression Abdomen/Pelvis CT 03/17/25 12:53 IMPRESSION: Inflammatory sigmoid colon finding. More likely than not this is diverticulitis, but lesion has a masslike appearance is sigmoid colon carcinoma can not be entirely excluded. Subtle suggestion of radiolucent gallstones. Consider gallbladder ultrasound follow-up if clinically relevant Reading [facility] Abdomen/Pelvis CT 03/17/25 19:41 IMPRESSION: Large 10 cm lesion in the proximal to mid sigmoid colon, likely representing colon carcinoma. Diverticulitis is considered much less likely. Reading [facility] Physical Exam GI GI Narrative: Abdomen- obtunded. Soft. Non-tender Assessment & Plan Assessment/Plan (1) Colonic mass: (2) Large bowel obstruction: PLAN: Plan I am following this patient in conjunction with Dr. Caceres. He has independently evaluated this patient. Labs reviewed Repeat delayed CT scan yesterday demonstrated a 10 cm apple-core lesion within the sigmoid colon Dr. Wilburn will plan to perform a colonoscopy today Dr. Caceres has discussed a laparoscopic possible conversion to open sigmoid colectomy with possible colostomy creation on Tuesday morning We will continue to monitor this patient Charges/Coding Visit Charges Inpatient E&M: 46013 Subs Hosp L2 03/18/25 1029 Cosigner Signature (if applicable): CC: ~ Signed [facility]08-25-2025 Progress note [facility] Medical Records Department [address] [place] [address] Progress Note - Hospitalist 03/18/25 1017 MR#: [id number] Acct: [id number] Name: PHI GONZALEZ Rep #:[id number] : 1965 60 From: Henrry landers MD PCP: Dr. Pepe Osullivan MD Status :ADM IN [id number] Subject[facility] Subjective No issues overnight, doing well. Plan for colonoscopy today with plan for possible surgical intervention on Tuesday or Objective Data Objective Data Vital Signs: Vital Signs Temp Pulse Resp BP Pulse Ox O2 Del Method 97.2 F L 80 18 121/71 H 99 Room Air 03/18/25 07:44 03/18/25 07:44 03/18/25 07:44 03/18/25 07:44 03/18/25 07:44 03/18/25 07:44 Oxygen Delivery Method Room Air Weight: 252 lb 6.868 oz Body Mass Index (BMI) 38.2 Intake & Output: Intake and Output for Last 24 Hours 03/17/25 03/18/25 03/19/25 03:59 03:59 03:59 Intake Total 1050.25 / 1050.25 110 / 110 Balance 1050.25 / 1050.25 110 / 110 Lab / Micro Data 03/18/25 03:51 03/18/25 03:51 Labs: Laboratory Results - last 24 hr 03/17/25 12:55: WBC 11.6 H, RBC 4.82, Hgb 14.2, Hct 40.9, MCV 84.9, MCH 29.5, MCHC 34.7, RDW Std Deviation 35.8, RDW Coeff of Tre 11.7, Plt Count 326, MPV 8.7, Immature Gran % (Auto) 0.300, Neut % (Auto) 82.0 H, Lymph % (Auto) 10.9 L, [place] % (Auto) 6.0, Eos % (Auto) 0.5, Baso % (Auto) 0.3, AbsoluteNeuts (auto) 9.5 H, Absolute Lymphs (auto) 1.27, Nucleated RBC % 0, Sodium 134, Potassium 3.3, Chloride 97 L, Carbon Dioxide 23.6, Anion Gap 13, BUN 9, Creatinine 0.96, Estim Creat Clear Calc 99.89, Est GFR (MDRD) Non-Af 90, BUN/Creatinine Ratio 9.9L, Glucose 171 H, Hemoglobin A1c 9.9 H, Calcium 8.8, Phosphorus 2.9, Magnesium 2.3 H, Total Bilirubin 0.67, AST 15, ALT 12, Alkaline Phosphatase 69, Total Protein 7.3, Albumin 3.6, Globulin 3.8, Albumin/Globulin Ratio 0.9 03/17/25 16:32: POC Glucose 128 H 03/17/25 21:08: POC Glucose 150 H 03/18/25 03:51: WBC 9.7, RBC 4.89, Hgb 14.3, Hct 41.8, MCV 85.5, MCH 29.2, MCHC 34.2, RDW Std Deviation 37.1, RDW Coeff of Tre 11.8, Plt Count 335, MPV 9.0, Immature Gran % (Auto) 0.400, Neut % (Auto) 69.0, Lymph % (Auto) 20.0, [place] % (Auto) 8.0, Eos % (Auto) 1.9, Baso % (Auto) 0.7, Absolute Neuts (auto) 6.7, Absolute Lymphs (auto) 1.94, Nucleated RBC % 0, Sodium 137, Potassium 3.3, Chloride 98, Carbon Dioxide 25.0, Anion Gap 14, BUN 12, Creatinine 1.00, Estim Creat Clear Calc 95.89, Est GFR (MDRD) Non-Af 86, BUN/Creatinine Ratio 12.0, Glucose 114 H, Calcium 9.1, TSH 3.780 03/18/25 06:35: POC Glucose 127 H Radiography Diagnostic Testing: Radiology Impression Abdomen/Pelvis CT 03/17/25 12:53 IMPRESSION: Inflammatory sigmoid colon finding. More likely than not this is diverticulitis, but lesion has a masslike appearance is sigmoid colon carcinoma can not be entirely excluded. Subtle suggestion of radiolucent gallstones. Consider gallbladder ultrasound follow-up if clinically relevant Reading Location: [facility] Abdomen/Pelvis CT 03/17/25 19:41 IMPRESSION: Large 10 cm lesion in the proximal to mid sigmoid colon, likely representing colon carcinoma. Diverticulitis is considered much less likely. Reading Location: [facility] Physical Exam Narrative General: Alert, Oriented x3, Cooperative, No apparent distress HEENT: Atraumatic, PERRLA, EOMI, Normocephalic Oral: Moist Mucosa Neck: Supple, No JVD Lungs: Clear to auscultation, Normal air movement, No rhonchi, No wheeze, No rales Cardiovascular: Regular rate, Regular Rhythm, Normal S1, Normal S2, No murmurs Abdomen: Soft, Non Tender, Non-Distended, No Hepato-splenomegaly Extremities: No edema, Capillary Refill Less than 3 Seconds Skin: No rashes, No breakdown Musculoskeletal: No Tenderness to Palpation of Joints or Extremities Neurological: No focal neurological deficits, Motor Exam 5/5 strength throughout, Sensory exam intact to light touch and pain Psych/Mental Status: Normal Affect, Appropriate Assessment & Plan Assessment/Plan (1) Colonic mass: PLAN: Plan 1. Colonic mass ? Unclear etiology, he had a colonoscopy about 10 years ago which was unremarkable. ? Plan for colonoscopy today and then surgery on Tuesday or for possible ostomy ? It appears of the concern for the ostomy is due to his diabetes as his A1c was9.9 however his blood sugars here in the hospital have been in the 130s to 150s so very controlled 2. DM2 ? A1c of 9.9 ? Takes Jardiance and Lantus at home ? Accu-Cheks, sliding scale insulin ? Will monitor make adjustments as necessary DVT: SCDs Charges/Coding Visit Charges Inpatient E&M: 90387 Subs Hosp L2 03/18/25 1021 Cosigner Signature (if applicable): CC: ~ Signed [facility]08-24-2025 Radiology Diagnostic study note [facility] Imaging Services [address] [place] [address] Abdomen/Pelvis without Cont MR#: [id number] Acct: [id number] Name: PHI GONZALEZ Rep #: [id number] : 1965 M 60 From: Pet er Peer DO PCP: Dr. Pepe Osullivan MD Status: ADM IN Study:Abdomen/Pelvis without Cont Date of Exa m: 03/17/25 Exam# [id number] Ordering Dr: Comfort Caceres MD PROCEDURE: ABDOMEN/PELVIS WITHOUT IV CONTRAST 03/17/2025 REASON FOR EXAM: CONSTIPATION,QUESTIONABLE COLON MASS TECHNIQUE: ABDOMEN/PELVIS WITHOUT CONT Noncontrast technique limits evaluation of the abdominal and pelvic viscera. Coronal and Sagittal reconstruction series were provided. One or more dose reduction techniques were used (e.g., Automated exposure control, adjustment of the mA and/or kV according to patient size, use of iterative reconstruction technique). RADIATION DOSE SUMMARY: CTDlvol: 20.8 mGy DLP: 5 1151.22 mGycm COMPARISON: Earlier today FINDINGS: Lung bases: Unremarkable. No infiltrates or nodules. Liver: No evidence of liver metastatic disease. Gallbladder: Normal Spleen: Normal Pancreas: Normal Adrenals: Normal Kidneys: Simple cyst right kidney otherwise unremarkable Bladder: Unremarkable Reproductive Organs: Enlarged prostate Bowel: 10 cm lesion is located in the mid to proximal sigmoid colon. This seemsto have a nearly apple-core appearance to it this is a barium enema finding indicating colon carcinoma. The thickened tumor produces a nearly occlusive passage to contrast, but there is contrast seen on both sides a vague suggestion of a string of contrast getting through, also findings associated with colon cancer Appendix: Normal Lymph nodes: No pathologically enlarged lymph nodes are identified. Questionable punctate lymph nodes in the mesentery Vasculature: Aorta and IVC are unremarkable. Peritoneum / Retroperitoneum: Trace fluid around the lesion no free air. Bones: No aggressive bony lesion identified. CT/Abdomen/Pelvis without Cont IMPRESSION: Large 10 cm lesion in the proximal to mid sigmoid colon, likely representing colon carcinoma. Diverticulitis is considered much less likely. Reading Location: [facility] CC: Dr. Pepe Osullivan MD; Dr. Fadi Caceres MD ~ Bag Inspector: Signed [facility]08-24-2025 Consult note Author Fadi Caceres [facility] Note Date/Time March 17, 2025 6: 14pm [facility] Medical Records Department [address] [place] [address] Consultation - Surgical 03/17/25 1756 MR#: [id number] Acct: [id number] Name: PHI GONZALEZ Rep #:[id number] : 1965 60 From: Fadi Gonsalez PCP: Dr. Pepe Osullivan MD Status :ADM IN Location: GA3 [id number] Assessment & Plan Assessment/Plan (1) Colonic mass: PLAN: Patient is 60-year-old male, past medical history of poorly controlled diabetes, who presents from outside facility with diagnosis of left colon mass that is causing at least partial large bowel obstruction. Patient reports 1 previous colonoscopy approximately 10 years ago that was unremarkable and his findings. However, for the last 11 days he has not had a true bowel movement. CT imaging demonstrates 10 x 7 cm mass of the sigmoid colon with surrounding diverticular disease. Therefore, differential must include neoplastic versus diverticular disease with intramural abscess. Repeat CT imaging with p.o. contrast was obtained but phase was suboptimal since contrast is yet to reach the area of the mass lesion. I have discussed with radiology techs that we should plan to obtain delayed pictures. Patient is currently completing a bowelprep for planned colonoscopy tomorrow. I discussed findings of patient's workupthus far with him at some length. Hand drawings were used to illustrate relevant anatomy and I also reviewed with him his index CT imaging. I shared the possibility of laparoscopic assisted sigmoid colectomy versus LAR with primary colorectal anastomosis versus sigmoid colectomy with ostomy versus diverting ostomy. I shared that if he is unable to have much output with his colon prep and his A1c remains prohibitive then I would strongly recommend we proceed with a colostomy as his risks for anastomotic leak would be prohibitive. He confirmed understanding of this conversation. I have obtained a updated hemoglobin A1c to assess for his glucose control given that his previous value is now 15 months old. Will continue to follow and evaluate patient next tomorrow a.m. Please notify of any acute changes. Fadi Caceres MD General Surgery Endocrine Surgery Pager: [facility] [address] [place] [address], [facility], [address] [place] [address] Office: [phone] (2) Large bowel obstruction: HPI Consult Data Date of Consult: 03/17/25 HPI Narrative Reason for Consultation: Concern for left colon mass HPI Narrative: PHI GONZALEZ, is a 60 M who presents to [facility] in direct transfer from [facility] after he presented there with complaints of constipation over the last 11 days. He states that his last bowel movement was 12 days ago and the following day when he went to have a bowel movement he only passed mucus. Since that time he has had constant cramping of his left lower quadrant and the result of attempted bowel movements has always been the same; mucus with some bright red blood. He reports feeling hot several days but is unable to say whether or not he has had any fevers or chills. He denies any nausea or vomiting. He denies any recent weight loss, but states that he has been reluctant to eat. Patient's ED workup that outside hospital showed mild leukocytosis of 11,[address] imaging demonstrating evidence of a sigmoid based mass measuring 10 x 7 cm. I was contacted by outside hospital for possible transfer after patient requested. For the interim patient has been started on a bowel prep by gastroenterology and also a CT scan with p.o. contrast has been completed but not yet read. Patient has a history of intermittent constipation which she states occurred approximately every 12 to 14 months but never lasted more than 3 to 5 days. Outside of this he shares a history of a colonoscopy completed between 9 and 11 years ago at an outpatient facility in [facility]. He reports this was done with Dr. Gutierrez and denies recalling any significant findings. Mr. Gonzalez denies any personal history of diverticulitis and unfortunately is unclear on his family history as he is adopted. Patient has a history of diabetes and reports his last A1c was 10.9 but this wasobtained in November 2023. He shares that he has had to cancel a number of visits with his PCP due to his restricted work schedule. However, for the last 14 months he does report that he has been working to improve his glycemic control. He has no history of prior abdominal surgery. [facility] Medical History HTN (hypertension) Diabetes Sleep apnea Home Medications ?Medication ?Instructions ?Recorded ?Last Taken ?Type empagliflozin 10 mg tablet 10 mg PO DAILY 03/17/25 Unk nown History (Jardiance) insulin glargine 100 unit/mL (3 10 unit subcut QPM Unknown History mL) subcutaneous pen (Lantus Solostar U-100 Insulin) Allergy/AdvReac Type Severity Reaction Status Date / Time lisinopril AdvReac Mild Nausea Verified 03/17/25 12:48 Surgical History no surgical history Social History (System 03/08/24 @ 13:33 by Hetal Onesimo) Smoking Status: Never smoker Physical Exam Const alert, oriented x3, no apparent distress and well nourished General Appearance: cooperative Nutritional Appearance: obese Resp normal respiratory effort GI GI Narrative: Morbidly obese, no scars, no visible hernia, mildly distended, soft, mild tenderness to palpation of the left lower quadrant. Lab / Micro Data 03/17/25 12:55 03/17/25 12:55 Labs: Laboratory Results - last 24 hr 03/17/25 12:55: WBC 11.6 H, RBC 4.82, Hgb 14.2, Hct 40.9, MCV 84.9, MCH 29.5, MCHC 34.7, RDW Std Deviation 35.8, RDW Coeff of Tre 11.7, Plt Count 326, MPV 8.7, Immature Gran % (Auto) 0.300, Neut % (Auto) 82.0 H, Lymph % (Auto) 10.9 L, Torrance % (Auto) 6.0, Eos % (Auto) 0.5, Baso % (Auto) 0.3, Absolute Neuts (auto) 9.5 H, Absolute Lymphs (auto) 1.27, Nucleated RBC % 0, Sodium 134, Potassium 3.3, Chloride 97 L, Carbon Dioxide 23.6, Anion Gap 13, BUN 9, Creatinine 0.96, Estim Creat Clear Calc 99.89, Est GFR (MDRD) Non-Af 90, BUN/Creatinine Ratio 9.9L, Glucose 171 H, Calcium 8.8, Phosphorus 2.9, Magnesium 2.3 H, Total Bilirubin 0.67, AST 15, ALT 12, Alkaline Phosphatase 69, Total Protein 7.3, Albumin 3.6, Globulin 3.8, Albumin/Globulin Ratio 0.9 03/17/25 16:32: POC Glucose 128 H Charges/Coding Visit Charges Inpatient E&M: 97465 Init Hosp L2 03/17/25 1814 <Electronically signed by Fadi Caceres MD> Cosigner Signature (if applicable): CC: Dr. Pepe Osullivan MD~ Signed [facility] Work Phone: 1(224) 767-133608-24-2025 Radiology Diagnostic study note [facility] Imaging Services [address] [place], [place] [id number] Abdomen/Pelvis WITH Contrast MR#: [id number] Acct: [id number] Name: HPI GONZALEZ Rep #: [id number] : 1965 M 60 From: Pet er Peer DO PCP: Dr. Pepe Osullivan MD Status: ADM IN Study:Abdomen/Pelvis WITH Contrast Date of Ex am: 03/17/25 Exam# [id number] Ordering Dr: Hal Wilburn DO PROCEDURE: ABDOMEN/PELVIS WITH CONTRAST 03/17/2025 REASON FOR EXAM: CONSTIPATION QUESTIONABLE COLON MASS TECHNIQUE: ABDOMEN/PELVIS WITH CONTRAST Coronal and Sagittal reconstruction series were provided. CONTRAST: Isovue 370 VOLUME: 97 mL One or more dose reduction techniques were used (e.g., Automated exposure control, adjustment of the mA and/or kV according to patient size, use of iterative reconstruction technique. RADIATION DOSE SUMMARY: CTDlvol: 9.47 and 32.86 mGy DLP: 1872.67 mGycm FINDINGS: Lung bases: Clear. No pleural effusions. Normal Liver: Normal Gallbladder: Intact. Vague suggestion of radiolucent stones Spleen: Unremarkable Pancreas: No inflammatory stranding or pseudocyst. Unremarkable pancreas. Adrenals: Normal Kidneys: Bilateral small renal cysts, Bosniak 1 requiring no follow-up. Kidneysare otherwise normalin location, contour and enhancement. No hydronephrosis. Bladder: Unremarkable Reproductive Organs: Enlarged prostate Bowel: Thickening and inflammatory stranding in the distal sigmoid colon. This is likely diverticulitis but has a masslike appearance and neoplasm can not be entirely excluded. Appendix: Normal appendix. Lymph nodes: No adenopathy. Vasculature: Unremarkable aorta and IVC Peritoneum / Retroperitoneum: Trace fluid around the inflamed sigmoid colon. Nofree air. Bones: No aggressive bony process. CT/Abdomen/Pelvis WITH Contrast IMPRESSION: Inflammatory sigmoid colon finding. More likely than not this is diverticulitis, but lesion has a masslike appearance is sigmoid colon carcinoma can not be entirely excluded. Subtle suggestion of radiolucent gallstones. Consider gallbladder ultrasound follow-up if clinically relevant Reading Location: [facility] CC: Dr. Pepe Osullivan MD; Sae Wilburn, DO ~ Bag Inspector: Signed [facility]08-24-2025 Consult note [facility] Medical Records Department [address] [place] [address] Consultation - Surgical 03/17/25 1756 MR#: [id number] Acct: [id number] Name: PHI GONZALEZ Rep #:[id number] : 1965 60 From: Fadi Gonsalez PCP: Dr. Pepe Osullivan MD Status :ADM IN Location: GA3 [id number] Assessment & Plan Assessment/Plan (1) Colonic mass: PLAN: Patient is 60-year-old male, past medical history of poorly controlled diabetes, who presentsfrom outside facility with diagnosis of left colon mass that is causing at least partial large bowel obstruction. Patient reports 1 previous colonoscopy approximately 10 years ago that was unremarkable and his findings. However, for the last 11 days he has not had a true bowel movement. CT imaging demonstrates 10 x 7 cm mass of the sigmoid colon with surrounding diverticular disease. Therefore, differential must include neoplastic versus diverticular disease with intramural abscess. Repeat CT imaging with p.o. contrast was obtained but phase was suboptimal since contrast is yet to reach the area of the mass lesion. I have discussed with radiology techs that we should plan to obtain delayed pictures. Patient is currently completing a bowelprep for planned colonoscopy tomorrow. I discussed findings of patient's workupthus far with him at some length. Hand drawings were used to illustrate r elevant anatomy and I also reviewed with him his index CT imaging. I shared the possibility of laparoscopic assisted sigmoid colectomy versus LAR with primary colorectal anastomosis versus sigmoid colectomy with ostomy versus diverting ostomy. I shared that if he is unable to have much output with his colon prep and his A1c remains prohibitive then I would strongly recommend we proceed with a colostomy as his risks for anastomotic leak would be prohibitive. He confirmed understanding of this conversation. I have obtained a updated hemoglobin A1c to assess for his glucose control given that his previous value is now 15 months old. Will continue to follow and evaluate patient next tomorrow a.m. Please notify of any acute changes. Fadi Caceres MD General Surgery Endocrine Surgery Pager: [facility] [address] [place] [address], [facility], [address] [place] [id number] Office: [phone] (2) Large bowel obstruction: HPI Consult Data Date of Consult: 03/17/25 HPI Narrative Reason for Consultation: Concern for left colon mass HPI Narrative: PHI GONZALEZ, is a 60 M who presents to [facility] in direct transfer from [facility] after he presented there with complaints of constipation over the last 11 days. He statesthat his last bowel movement was 12 days ago and the following day when he went to have a bowel movement he only passed mucus. Since that time he has had constant cramping of his left lower quadrant and the result of attempted bowel movements has always been the same; mucus with some bright red blood. He reports feeling hot several days but is unable to say whether or not he has had any fevers or chills. He denies any nausea or vomiting. He denies any recent weight loss, but states that he has been reluctant to eat. Patient's ED workup that outside hospital showed mild leukocytosis of 11,[address] imaging demonstrating evidence of a sigmoid based mass measuring 10 x 7 cm. I was contacted by outside hospital for possible transfer after patient requested. For the interim patient has been started on a bowel prep by gastroenterology and also a CT scan with p.o. contrast has been completed but not yet read. Patient has a history of intermittent constipation which she states occurred approximately every 12to 14 months but never lasted more than 3 to 5 days. Outside of this he shares a history of a colonoscopy completed between 9 and 11 years ago at an outpatient facility in [facility]. He reports this was done with Dr. Gutierrez and denies recalling any significant findings. Mr. Gonzalez denies any personal history of diverticulitis and unfortunately is unclear on his family history as he is adopted. Patient has a history of diabetes and reports his last A1c was 10.9 but this wasobtained in November 2023. He shares that he has had to cancel a number of visits with his PCP due to his restricted work schedule. However, for the last 14 months he does report that he has been working to improve his glycemic control. He has no history of prior abdominal surgery. [facility] Medical History HTN (hypertension) Diabetes Sleep apnea Home Medications ?Medication ?Instructions ?Recorded ?Last Taken ?Type empagliflozin 10 mg tablet 10 mg PO DAILY 03/17/25 Unk nown History (Jardiance) insulin glargine 100 unit/mL (3 10 unit subcut QPM Unknown History mL) subcutaneous pen (Lantus Solostar U-100 Insulin) Allergy/AdvReac Type Severity Reaction Status Date / Time lisinopril AdvReac Mild Nausea Verified 03/17/25 12:48 Surgical History no surgical history Social History (System 03/08/24 @ 13:33 by Hetal Echols) Smoking Status: Never smoker Physical Exam Const alert, oriented x3, no apparent distress and well nourished General Appearance: cooperative Nutritional Appearance: obese Resp normal respiratory effort GI GI Narrative: Morbidly obese, no scars, no visible hernia, mildly distended, soft, mild tenderness to palpation of the left lower quadrant. Lab / Micro Data 03/17/25 12:55 03/17/25 12:55 Labs: Laboratory Results - last 24 hr 03/17/25 12:55: WBC 11.6 H, RBC 4.82, Hgb 14.2, Hct 40.9, MCV 84.9, MCH 29.5, MCHC 34.7, RDW Std Deviation 35.8, RDW Coeff of Tre 11.7, Plt Count 326, MPV 8.7, Immature Gran % (Auto) 0.300, Neut % (Auto) 82.0 H, Lymph % (Auto) 10.9 L, Torrance % (Auto) 6.0, Eos % (Auto) 0.5, Baso % (Auto) 0.3, AbsoluteNeuts (auto) 9.5 H, Absolute Lymphs (auto) 1.27, Nucleated RBC % 0, Sodium 134, Potassium 3.3, Chloride 97 L, Carbon Dioxide 23.6, Anion Gap 13, BUN 9, Creatinine 0.96, Estim Creat Clear Calc 99.89, Est GFR (MDRD) Non-Af 90, BUN/Creatinine Ratio 9.9L, Glucose 171 H, Calcium 8.8, Phosphorus 2.9, Magnesium 2.3 H, Total Bilirubin 0.67, AST 15, ALT 12, Alkaline Phosphatase 69, Total Protein 7.3, Albumin 3.6, Globulin 3.8, Albumin/Globulin Ratio 0.9 03/17/25 16:32: POC Glucose 128 H Charges/Coding Visit Charges Inpatient E&M: 94575 Init Hosp L2 03/17/25 1814 Cosigner Signature (if applicable): CC: Dr. Pepe Osullivan MD~ Signed [facility]08-24-2025 History and physical note Author Benitez Bianchi [facility] Note Date/Time March 17, 2025 12 :54pm [facility] Medical Records Department [address] [place] [address] H&P Exam - Hospitalist 03/17/25 1249 MR#: [id number] Acct: [id number] Name: PHI GONZALEZ Rep #:[id number] : 1965 60 From: Benitez Bianchi MD PCP: Dr. Pepe Osullivan MD Status :ADM IN [place] [facility] [id number] HPI - General General Date of Admission: 03/17/25 Date of Service: 03/17/25 Chief Complaint: Constipation HPI Narrative PHI GONZALEZ, is a 60 M who presents with 11-day history of constipation. Patient initially presented to [place] emergency department CT of the abdomen and pelvis was questionable for diverticulitis with an abscess versus sigmoid mass. Patient did receive IV antibiotics plan was for patient to have been admitted for subsequent eval patient however requested to be transferred to [facility]. Patient did report nausea but denied any vomiting. Reports passing some mucus per rectum. The surgeon on-call was notified prior to patient being admitted. [facility] Medical History HTN (hypertension) Diabetes Sleep apnea Home Medications ?Medication ?Instructions ?Recorded ?Last Taken ?Type empagliflozin 10 mg tablet 10 mg PO DAILY 03/17/25 Unk nown History (Jardiance) insulin glargine 100 unit/mL (3 10 unit subcut QPM Unknown History mL) subcutaneous pen (Lantus Solostar U-100 Insulin) Allergy/AdvReac Type Severity Reaction Status Date / Time lisinopril AdvReac Mild Nausea Verified 03/17/25 12:48 Surgical History no surgical history Social History (System 03/08/24 @ 13:33 by Hetal Echols) Smoking Status: Never smoker ROS ROS Narrative GENERAL: denies fever, chills, night sweats, weight loss, anorexia HEENT: denies headache, sinus congestion, or drainage, dysphagia RESPIRATORY: denies cough, sputum production, shortness of breath, dyspnea on exertion CARDIAC: denies chest pain, palpitations, orthopnea, PND GASTROINTESTINAL: Constipation and nausea GENITOURINARY: denies dysuria, urgency, frequency, heamaturia EXTREMITY: denies swelling MUSCULOSKELETAL: denies current joint pain or tenderness NEUROLOGIC: denies focal numbness, weakness, tingling HEMATOLOGIC: denies easy bruising and/or hemorrhage INTEGUMENT: denies rashes PSYCHIATRIC: denies suicidal or homicidal ideation Vital Signs Vital Signs Vital Signs: 03/17/25 12:27 Temperature 98.5 F Temperature Source Oral Pulse Rate 96 Respiratory Rate 18 Blood Pressure 134/84 H Blood Pressure Mean 100 Blood Pressure Source Monitor Blood Pressure Position Semi-Fowlers Blood Pressure Location Right Arm Pulse Ox 98 Oxygen Delivery Method Room Air Weight Weight: 115.893 kg Body Mass Index (BMI) 38.8 Physical Exam Narrative GENERAL: cooperative HEENT: Atraumatic; normocephalic EYES; Anicteric, Normal Conjunctiva NECK; supple, normal thyroid, RESPIRATORY: Diminished to auscultation CARDIOVASCULAR: Regular S1 S2, GI: soft but protuberant, normoactive bowel sounds, : No Renal angle tenderness; EXTREMITIES: No edema, no clubbing, MUSCULOSKELETAL: no muscle wasting NEURO: Awake; no lateralizing signs. SKIN: No Rash PSYCH; Flat affect Assessment & Plan Assessment/Plan (1) Colonic mass: PLAN: Plan Patient is a 60-year-old gentleman presenting with 11-day history of constipation found to have colonic mass on imaging study obtained on outside hospital 1. Colonic mass ? Patient presented with 7-day history of constipation. Patient has been admitted to regular nursing floor. Bowel prep initiated. Consult placed to both GI?Dr. Wilburn as well as Dr. Caceres with general surgery 2. Hypokalemia this has been corrected per protocol repeat K levels ordered to assess response to therapy 3. Diabetes mellitus type II -patient's oral hypoglycemics held. Placed on long acting insulin, Accu-Cheks a.c. and at bedtime and covered with sliding scale insulin 4. Hypertension ? Blood pressure controlled, home medications continued with dose adjustment as needed 5. Class II obesity with BMI of 38.8 ? Complicating care weight loss advised 6. Dyslipidemia ?Patient is on statin therapy, continued at home dose 7. Obstructive sleep apnea ? Consistent use of PAP therapy encouraged 8. DVT prophylaxis ? SCDs for now with plan to initiate chemoprophylaxis following any surgical intervention Time spent in the patient's overall evaluation,decision-making process, review of diagnostic data, adjustment of management, discussion with other providers, nursing nursing and ancillary staff involved in patient's care documentation, 55 Minutes Advance planning; did discuss with the patient regarding advanced directives aswell as CODE STATUS. Did explain the various scenarios involved ( FULL CODE, DNR CCA, DNR CCA with no intubation, and DNR CC and what each meant) patient elected to remain full code with CPR intubation if warranted. Order was placed. Time spent on discussion 16 minutes. Charges/Coding Multi Select Codes Visit Charges Visit Charges: 51084 Init Hosp Hospitalists' Procedures Procedures: 08855 Advncd Care Plan 30 Min 03/17/25 1254 <Electronically signed by Benitez Bianchi MD> Cosigner Signature (if applicable): CC: Dr. Pepe Osullivan MD; Dr. Benitez Bianchi MD~ Signed [facility] Work Phone: 1(131) 647-920208-24-2025 Evaluation note* Diagnosis Onset Date Resolution Status Admit Date Colonic mass acute March 17, 2025 12:22pm Ischemic colitis acute February 232024 12:22pm Large bowel obstruction acute A ugust 2024 12:22pm [facility] Work Phone: 1(663) 244-721708-24-2025 Evaluation note* Diagnosis Onset Date Resolution Status Admit Date Colonic mass acute March 17, 2025 12:22pm Ischemic colitis acute February 232024 12:22pm Large bowel obstruction resolved A ugust 2024 12:22pm [facility] Work Phone: 1(335) 989-998208-24-2025 Evaluation note* Diagnosis Onset Date Resolution Status Admit Date Colonic mass acute March 17, 2025 12:22pm Ischemic colitis acute February 232024 12:22pm Large bowel obstruction resolved A ugust 2024 12:22pm Colonic mass acute March 9:58am Ischemic colitis acute Septembe r 2024 9:58am Abnormal finding on GI tract imaging acute April 01 025 2:27pm Constipation acute March 2:27pm [facility] Work Phone: 1(217) 235-389908-24-2025 Evaluation note* Diagnosis Onset Date Resolution Status Admit Date Colonic mass acute March 17, 2025 12:22pm Ischemic colitis acute February 232024 12:22pm Large bowel obstruction resolved A ugust 2024 12:22pm Colonic mass acute March 9:58am Ischemic colitis acute Septembe r 2024 9:58am Abnormal finding on GI tract imaging acute April 01 025 2:27pm Constipation acute March 2:27pm Abnormal finding on GI tract imaging acute April 08, 2025 10:21am Constipation acute April 082024 10:21am Ischemic colitis acute Septembe r 2024 10:21am [facility] Work Phone: 1(270) 413-754608-24-2025 History and physical note [facility] Medical Records Department [address] [place] [address] H&P Exam - Hospitalist 03/17/25 1249 MR#: [id number] Acct: [id number] Name: PHI GONZALEZ DERIK Rep #:[id number] : 1965 60 From: Benitez Bianchi MD PCP: Dr. Pepe Osullivan MD Status :ADM IN Location: MS3 ML838-3 HPI - General General Date of Admission: 03/17/25 Date of Service: 03/17/25 Chief Complaint: Constipation HPI Narrative PHI GONZALEZ, is a 60 M who presents with 11-day history of constipation. Patient initially presented to [place] emergency department CT of the abdomen and pelvis was questionable for diverticulitis with an abscess versus sigmoid mass. Patient did receive IV antibiotics plan was for patient to have been admitted for subsequent eval patient however requested to be transferred to [facility]. Patient didreport nausea but denied any vomiting. Reports passing some mucus per rectum. The surgeon on-call was notified prior to patient being admitted. [facility] Medical History HTN (hypertension) Diabetes Sleep apnea Home Medications ?Medication ?Instructions ?Recorded ?Last Taken ?Type empagliflozin 10 mg tablet 10 mg PO DAILY 03/17/25 Unk nown History (Jardiance) insulin glargine 100 unit/mL (3 10 unit subcut QPM Unknown History mL) subcutaneous pen (Lantus Solostar U-100 Insulin) Allergy/AdvReac Type Severity Reaction Status Date / Time lisinopril AdvReac Mild Nausea Verified 03/17/25 12:48 Surgical History no surgical history Social History (System 03/08/24 @ 13:33 by Hetal Echols) Smoking Status: Never smoker ROS ROS Narrative GENERAL: denies fever, chills, night sweats, weight loss, anorexia HEENT: denies headache, sinus congestion, or drainage, dysphagia RESPIRATORY: denies cough, sputum production, shortness of breath, dyspnea on exertion CARDIAC: denies chest pain, palpitations, orthopnea, PND GASTROINTESTINAL: Constipation and nausea GENITOURINARY: denies dysuria, urgency, frequency, heamaturia EXTREMITY: denies swelling MUSCULOSKELETAL: denies current joint pain or tenderness NEUROLOGIC: denies focal numbness, weakness, tingling HEMATOLOGIC: denies easy bruising and/or hemorrhage INTEGUMENT: denies rashes PSYCHIATRIC: denies suicidal or homicidal ideation Vital Signs Vital Signs Vital Signs: 03/17/25 12:27 Temperature 98.5 F Temperature Source Oral Pulse Rate 96 Respiratory Rate 18 Blood Pressure 134/84 H Blood Pressure Mean 100 Blood Pressure Source Monitor Blood Pressure Position Semi-Fowlers Blood Pressure Location Right Arm Pulse Ox 98 Oxygen Delivery Method Room Air Weight Weight: 115.893 kg Body Mass Index (BMI) 38.8 Physical Exam Narrative GENERAL: cooperative HEENT: Atraumatic; normocephalic EYES; Anicteric, Normal Conjunctiva NECK; supple, normal thyroid, RESPIRATORY: Diminished to auscultation CARDIOVASCULAR: Regular S1 S2, GI: soft but protuberant, normoactive bowel sounds, : No Renal angle tenderness; EXTREMITIES: No edema, no clubbing, MUSCULOSKELETAL: no muscle wasting NEURO: Awake; no lateralizing signs. SKIN: No Rash PSYCH; Flat affect Assessment & Plan Assessment/Plan (1) Colonic mass: PLAN: Plan Patient is a 60-year-old gentleman presenting with 11-day history of constipation found to have colonic mass on imaging study obtained on outside hospital 1. Colonic mass ? Patient presented with 7-day history of constipation. Patient has been admitted to regular nursing floor. Bowel prep initiated. Consult placed to both GI?Dr. Wilburn as well as Dr. Caceres with general surgery 2. Hypokalemia this has been corrected per protocol repeat K levels ordered to assess response to therapy 3. Diabetes mellitus type II -patient's oral hypoglycemics held. Placed on long acting insulin, Accu-Cheks a.c. and at bedtime and covered with sliding scale insulin 4. Hypertension ? Blood pressure controlled, home medications continued with dose adjustment as needed 5. Class II obesity with BMI of 38.8 ? Complicating care weight loss advised 6. Dyslipidemia ?Patient is on statin therapy, continued at home dose 7. Obstructive sleep apnea ? Consistent use of PAP therapy encouraged 8. DVT prophylaxis ? SCDs for now with plan to initiate chemoprophylaxis following any surgical intervention Time spent in the patient's overall evaluation,decision-making process, review of diagnostic data, adjustment of management, discussion with other providers, nursing nursing and ancillary staff involved in patient's care documentation, 55 Minutes Advance planning; did discuss with the patient regarding advanced directives aswell as CODE STATUS.Did explain the various scenarios involved ( FULL CODE, DNR CCA, DNR CCA with no intubation, and DNR CC and what each meant) patient elected to remain full code with CPR intubation if warranted. Order was placed. Time spent on discussion 16 minutes. Charges/Coding Multi Select Codes Visit Charges Visit Charges: 81262 Init Hosp L2 Hospitalists' Procedures Procedures: 29476 Advncd Care Plan 30 Min 03/17/25 1254 Cosigner Signature (if applicable): CC: Dr. Pepe Osullivan MD; Dr. Benitez Bianchi MD~ Signed [facility]08-22-2025 NoteHNO ID: [id number] Author: INGRID HUERTA APRN.HONORIO Service: ? Author Type: Nurse Practitioner Type: Progress Notes Filed: 03/15/2025 15:13 Note Text: URGENT CARE [facility] Phi [...] complication, without long-term current use of insulin ([facility]) 03/09/2021 PAST SURGICAL HISTORY Procedure Laterality Date COLONOSCOPY FLX DX W/COLLJ SPEC WHEN PFRMD 09/22/2017 Colonoscopy ENDOSCOPIC EXCISION N-P MASS 11/10/2017 excision cyst mass colon ALLERGIES Losartan and Seasonal Allergies MEDICATIONS insulin needles, DISPOSABLE, (PEN NEEDLE) 31 gauge x 12/07 Use one needle per dose. once per [...] Objective BP 151/100 Pulse 79 Temp 36.6 ?C (97.8 ?F) Resp 18 Wt 117.5 kg (259 lb 0.7 oz) SpO2 99% BMI 39.03 kg/m? Physical Exam Vitals and nursing note reviewed. [...] or rebound. Hernia: No hernia is present. Musculoskeletal (more content not included)...[facility] 03-15-2025 History of Present illness Narrative* Ingrid Huerta, ANDRES.SPORTS FITNESS AND WELLNESS DIRECTOR - 03/15/2025 3:11 PM EDT URGENT CARE [facility] Phi [...] Morbid obesity with BMI of 40.0-44.9, adult ([facility]) SILVANO (obstructive sleep apnea) severe Seasonal allergies Snoring Type 2 diabetes mellitus without complication, without long-term current use of insulin ([facility]) 03/09/2021 PAST SURGICAL HISTORY Procedure Laterality [...] abdominal cramping, (+) nausea, (+) vomiting, (+) diarrhea,(+) hematochezia, (+) flatulence Objective BP 151/100 Pulse [...] 2 diabetes mellitus without complication, unspecified whether residential insulin use (HCC) (E11.9) and Recording using [employer] software for draft documentation of the visit was discussed with thepatient/authorized medical representative; all questions welcomed and answered. Patient/authorized medical representative agreed to proceed MDM Procedures [1] Social History Tobacco Use Smoking status: Never Smokeless tobacco: Never Substance Use Topics Alcohol use: Yes Comment: Occasionally twice per month Drug use: No documented in this encounterCincinnati [facility] Center08-22-2025 Instructions* Patient Instructions* Ingrid Huerta APRN.CNP - 03/15/2025 2:57 PM EDT Constipation Constipation can be an unpleasant topic to talk about. Most people have experienced constipation atsome point in their life. Though typically not [...] the diet or a disruption of the regulardiet or routine. Chronic constipation may be due [...] is another medical condition that can cause constipationbut it usually also accompanied by other symptoms [...] evaluate constipation. Only a small number of patientswith constipation have a serious underlying medical problem [...] without any obvious illness to explain their symptoms,suffer from one of two problems: Colonic inertia (also called lazy colon): a condition in which the colon contracts poorly and retains stool. This can be determined by colon transit studies. Obstructed defecation: a condition in which the colon contracts normally, but the patient is unableto expel stool from the rectum. This condition [...] more? National Digestive Diseases Information Clearinghouse2 Information [place], [place] [address] www.digestive.niddk.nih.gov email: References: National Digestive Diseases Information Clearinghouse. Constipation. digestive.niddk.nih.gov Accessed April 28, 2012. Citizen Of [place] Gastro[employer]ological Association. Understanding Constipation. www.gastro.org. Accessed April 28, 2012. Copyright 7107-7474 The [facility]. All rights reserved This information is provided by the [facility] and is not intended to replace the medical advice of your doctor or health care provider. Please consult your health care provider for advice about a specific medical condition. For additional health information, please contact the Center for Consumer Health Information at the [facility] or toll-free extension [phone]. If you prefer, you may visit [email or web address] or [email or web address]. This document was last reviewed on: 2012 index #4059 documented in this encounterCincinnati Va Medical Center08-22-2025 History of Present illness Narrative* Ally Mc RT(R) - 03/15/2025 2:50 PM EDT Radiology Service Progress Note PATIENT NAME: Phi Gonzalez DATE OF SERVICE: March 15, 2025 TIME: 2:29 PM PATIENT IDENTITY VERIFICATION COMPLETED USING TWO (2) IDENTIFIERS: Name and Date of confirmedby patient verbally. FALL SCREENING: Has the patient had 2 falls in the last year or 1 fall with injury or currently using an Ambulatory Assistive Device (Walker, Cane, Wheelchair, Crutches, etc.)? No PATIENT GENDER DATA: Assigned male at PATIENT RELEVANT IMPLANT DATA REVIEWED: Not Applicable PATIENT PRESENTS WITH AN IMPLANTABLE OR ATTACHED CERTIFIED SOCIAL WORKERS IN HEALTH CARE: No RADIOLOGY DEPARTMENT: General X-ray: Exam(s) Completed: Abdomen X-Ray: Abdomen with Upright PERIPHERAL IV DATA: Not applicable SIGNED BY: RT Aaron(R) March 15, 2025 2:29 PM documented in this encounterCincinnati Va Medical Center08-22-2025 NoteHNO ID: [id number] Author: ALLY MC RT(Hal) Service: ? Author Type: Technologist Type: Progress Notes Filed: 03/15/2025 14:38 Note Text: Radiology Service Progress Note PATIENT NAME: Phi [...] PATIENT PRESENTS WITH AN IMPLANTABLE OR ATTACHED CERTIFIED SOCIAL WORKERS IN HEALTH CARE: No RADIOLOGY DEPARTMENT: General X-ray: Exam(s) Completed: Abdomen X-Ray: Abdomen with Upright PERIPHERAL IV DATA: Not applicable SIGNED BY: RT Aaron(R) March 15, 2025 2:29 [facility]03-27-2025 NoteHNO ID: [id number] Author: DANIELE MCKEON RN Service: ? Author Type: Registered Nurse Type: Progress Notes Filed: 10/18/2024 18:00 Note Text: DIABETES SELF-MANAGEMENT EDUCATION AND SUPPORT Location: [facility] Type of visit: Virtual (with video) individual I have communicated my name and active licensure. The patient's identity and physical location were verified at the time of this visit. 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 [...] Morbid obesity with BMI of 40.0-44.9, adult ([facility]) SILVANO (obstructive sleep apnea) severe Seasonal allergies Snoring Type 2 diabetes mellitus without complication, without long-term current use of insulin ([facility]) 03/09/2021 Most recent A1C Lab Results Component V (more content not included)...[facility]03-27-2025 History of Present illness Narrative* Daniele Mckeon RN - 10/18/2024 5:31 PM EDT DIABETES SELF-MANAGEMENT EDUCATION AND SUPPORT Location: [facility] Type of visit: Virtual (with video) individual I have communicated my name and active licensure. The patient's identity and physical location wereverified at the time of this visit. Either the patient or their legal medical representative has been informed of the risks and benefits of -- and alternatives to -- treatment through a remote evaluation andconsents to proceed with the evaluation remotely. Types [...] able to do a successful self-check of BGwith no coaching, and sharps disposal -Healthy Eating: [...] will take to make me take it moreserious, even with my A1c high. 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 [...] Morbid obesity with BMI of 40.0-44.9, adult ([facility]) SILVANO (obstructive sleep apnea) severe Seasonal allergies Snoring Type 2 diabetes mellitus without complication, without long-term current use of insulin ([facility]) 03/09/2021 Most recent A1C Lab Results [...] benefit from a new sleep assessment and recommendedhe discuss with PCP, ask for referral Current [...] Has been for 12 years, was doing allcooking so he shared he is not interested [...] TIME: 5:31 PM PAGER: documented in this encounterCincinnati [facility] Center02-27-2025 Telephone encounter Note * Telephone Encounter - Juan R Osullivan MD - 09/20/2024 12:50 PM EST Overdue for OV. Needs to schedule in next 30 days. [facility]02-27-2025 Miscellaneous Notes* Telephone Encounter - Juan R Osullivan MD - 09/20/2024 12:50 PM EST Overdue for OV. Needs to schedule in next 30 days. * Telephone Encounter - Myriam Lynch RN - 09/19/2024 4:57 PM EST The patient has been identified by name [...] 19, 2024 4:58 PM documented in this encounterCincinnati [facility] Center02-26-2025 Telephone encounter Note * Telephone Encounter - Myriam Lynch RN - 09/19/2024 4:57 PM EST The patient has been identified by name [...] Lynch RN September 19, 2024 4:58 PM [facility]02-05-2025 Telephone encounter Note* Telephone Encounter - Jessica Wynn LPN - 08/29/2024 2:24 PM EST Phoned patient and updated him with provider's message. Patient voiced understanding. Jessica Wynn LPN [facility]02-05-2025 Miscellaneous Notes* Telephone Encounter - Jessica Wynn LPN - 08/29/2024 2:24 PM EST Phoned patient and updated him with provider's message. Patient voiced understanding. Jessica Wynn LPN * Telephone Encounter - Juan R Osullivan MD - 08/29/2024 9:51 AM EST I will send in another 30 day refill, but needs OV in the next 1 month for DM follow up. * Telephone Encounter - Masha Aguayo MA - 08/29/2024 8:41 AM EST Per EPIC, Jardiance last prescribed 05/29/24, #30. Phone call to patient to see if he has been taking the jardiance. Pt states that he finished that prescription in June, so he has gone without all of July. Pt [place] with [place] 12/04/24 and was asked to follow up in 3 months. Masha Aguayo MA * Telephone Encounter - Carole Greer - 08/29/2024 8:36 AM EST Patient is asking for a refill that is empagliflozin (JARDIANCE) 10 mg tablet ( Patient last seen 12/05/23 Future visit scheduled: no PHARMACY: [facility]. documented in this encounterCincinnati [facility] Medical Center02-05-2025 Telephone encounter Note * Telephone Encounter - Juan R Osullivan MD - 08/29/2024 9:51 AM EST I will send in another 30 day refill, but needs OV in the next 1 month for DM follow up. [facility]02-05-2025 Telephone encounter Note* Telephone Encounter - Masha Aguayo MA - 08/29/2024 8:41 AM EST Per EPIC, Jardiance last prescribed 05/29/24, #30. Phone call to patient to see if he has been taking the jardiance. Pt states that he finished that prescription in June, so he has gone without all of July. Pt [place] with [place] 12/04/24 and was asked to follow up in 3 months. Masha Aguayo MA [facility]02-05-2025 Telephone encounter Note* Telephone Encounter - Carole Greer - 08/29/2024 8:36 AM EST Patient is asking for a refill that is empagliflozin (JARDIANCE) 10 mg tablet ( Patient last seen 12/05/23 Future visit scheduled: no PHARMACY: [facility]. [facility]12-04-2024 Telephone encounter Note* Telephone Encounter - Anthony Curran RN - 06/27/2024 11:56 AM EST MyChart msg sent to pt as requested. [facility]12-04-2024 Miscellaneous Notes* Telephone Encounter - Anthony Curran RN - 06/27/2024 11:56 AM EST MyChart msg sent to pt as requested. * Telephone Encounter - Juan R Osullivan MD - 06/27/2024 11:27 AM EST Labs ordered to be completed 1-2 days prior to OV. * Telephone Encounter - India Miller - 06/27/2024 9:51 AM EST Derik is calling Juan R Osullivan MD today to request an order for labs for his upcoming appointment. Please send a message in [employer] when labs are ordered. TY Patient has been identified by name and birthdate. Duration of symptoms: N/A Person calling: self Call patient at: at home [phone] (home) [phone] (cell) Was an appointment scheduled: No Closing statement: Results or non-symptom based questions: Thank you for calling [facility], your call will be returned within the next business day. India Miller documented in this encounterCincinnati [facility] Center12-04-2024 Telephone encounter Note * Telephone Encounter - Juan R Osullivan MD - 06/27/2024 11:27 AM EST Labs ordered to be completed 1-2 days prior to OV. [facility]12-04-20[facility] Telephone encounter Note* Telephone Encounter - India Miller - 06/27/2024 9:51 AM EST Derik is calling Juan R Osullivan MD today to request an order for labs for his upcoming appointment. Please send a message in [employer] when labs are ordered. TY Patient has been identified by name and birthdate. Duration of symptoms: N/A Person calling: self Call patient at: at home [phone] (home) [phone] (cell) Was an appointment scheduled: No Closing statement: Results or non-symptom based questions: Thank you for calling [facility], your call will be returned within the next business day. India Miller [facility]11-05-2024 Telephone encounter Note* Telephone Encounter - Sandhya Jackson LPN - 05/29/2024 9:24 AM EST Spoke with pt and apt booked and pt will get blood work done prior to apt. Sandhya Jackson LPN [facility]11-05-2024 Miscellaneous Notes* Telephone Encounter - Sandhya Jackson LPN - 05/29/2024 9:24 AM EST Spoke with pt and apt booked and pt will get blood work done prior to apt. Sandhya Jackson LPN * Telephone Encounter - Karla Almonte APRN.CNP - 05/29/2024 8:11 AM EST Please let patient know he is overdue for follow up and needs schedule. * Telephone Encounter - Klarissa Up - 05/28/2024 3:11 PM EST Prescription Refill Information The patient has been [...] 28, 2024 3:12 PM documented in this encounterCincinnati Va Medical Center11-05-2024 Telephone encounter Note * Telephone Encounter - Karla Almonte APRN.CNP - 05/29/2024 8:11 AM EST Please let patient know he is overdue for follow up and needs schedule. [facility]11-04-2024 Telephone encounter Note* Telephone Encounter - Klarissa Up - 05/28/2024 3:11 PM EST Prescription Refill Information The patient has been [...] Klarissa Luna May 28, 2024 3:12 PM [facility] Work Phone: 1(509) 514-510910-14-2024 Telephone encounter Note* Telephone Encounter - Martita Mckeon - 05/07/2024 1:31 PM EDT Prescription Refill Information The patient has been [...] Martita Luna May 07, 2024 1:31 PM [facility]10-14-2024 Miscellaneous Notes* Telephone Encounter - Martita Mckeon - 05/07/2024 1:31 PM EDT Prescription Refill Information The patient has been [...] 07, 2024 1:31 PM documented in this encounterCincinnati Va Medical Center09-24-2024 Telephone encounter Note * Telephone Encounter - Clarisse Quintero - 04/17/2024 3:46 PM EDT Prescription Refill Information The patient has been [...] Clarisse Quintero April 17, 2024 3:47 PM [facility]09-24-2024 Miscellaneous Notes* Telephone Encounter - Clarisse Quintero - 04/17/2024 3:46 PM EDT Prescription Refill Information The patient has been [...] 17, 2024 3:47 PM documented in this encounterCincinnati [facility] Center08-19-2024 Telephone encounter Note * Telephone Encounter - Jessica Wynn LPN - 03/12/2024 3:32 PM EDT Phoned patient and advised him PCP placed orders last week and recommend at least 2 days prior to appt to complete labs. Patient reports he will try to come tomorrow to complete. Jessica Wynn LPN [facility]08-19-2024 Miscellaneous Notes* Telephone Encounter - Jessica Wynn LPN - 03/12/2024 3:32 PM EDT Phoned patient and advised him PCP placed orders last week and recommend at least 2 days prior to appt to complete labs. Patient reports he will try to come tomorrow to complete. Jessica Wynn LPN * Telephone Encounter - Yudi Pimentel MA - 03/09/2024 10:50 AM EDT Mychart message sent to pt notifying him we tried to contact him with message left for a call back.Notified pt that fasting labs and a urine have been ordered to complete this week for his upcoming appt next week. Will keep encounter open to make sure pt has read his message. Yudi Pimentel MA * Telephone Encounter - Iliana Irving LPN - 03/06/2024 10:25 AM EDT Phoned patient left message to return call and ask to speak to a nurse. * Telephone Encounter - Juan R Osullivan MD - 03/06/2024 10:05 AM EDT Labs ordered. Come in this week to have them done so we can review at his appointment. * Telephone Encounter - Daniele Cortez - 03/06/2024 8:42 AM EDT Patient called to request lab orders for his upcoming follow up appt with Dr. Osullivan. Please call him at [phone] when placed. documented in this encounterCincinnati [facility] Center08-16-2024 Telephone encounter Note * Telephone Encounter - Yudi Pimentel MA - 03/09/2024 10:50 AM EDT Mychart message sent to pt notifying him we tried to contact him with message left for a call back.Notified pt that fasting labs and a urine have been ordered to complete this week for his upcoming appt next week. Will keep encounter open to make sure pt has read his message. Yudi Pimentel MA [facility]08-13-2024 Telephone encounter Note* Telephone Encounter - Iliana Irving LPN - 03/06/2024 10:25 AM EDT Phoned patient left message to return call and ask to speak to a nurse. [facility]08-13-2024 Telephone encounter Note* Telephone Encounter - Juan R Osullivan MD - 03/06/2024 10:05 AM EDT Labs ordered. Come in this week to have them done so we can review at his appointment. [facility]08-13-2024 Telephone encounter Note* Telephone Encounter - Daniele Cortez - 03/06/2024 8:42 AM EDT Patient called to request lab orders for his upcoming follow up appt with Dr. Osullivan. Please call him at [phone] when placed. [facility]07-11-2024 Telephone encounter Note* Telephone Encounter - Madi Mcdaniel - 02/02/2024 5:06 PM EDT Telephoned the patient regarding missed appt. Left a message. First attempt. [facility]07-11-2024 Miscellaneous Notes* Telephone Encounter - Madi Mcdaniel - 02/02/2024 5:06 PM EDT Telephoned the patient regarding missed appt. Left a message. First attempt. * Telephone Encounter - Charisse Nguyen RP - 02/02/2024 3:57 PM EDT Primary Care Pharmacy Rescheduling Outreach Call center, please contact patient and reschedule in person, telephone, and virtual visit for Diabetes management within ~4 week(s). (Visit length: 60 minutes - NEW) Thank you, Charisse Nguyen PharmD, DARRELL Primary Care Clinical Feller Operator 02/02/2024 3:57 PM documented in this encounterCincinnati [facility] Medical Center07-11-2024 Telephone encounter Note * Telephone Encounter - Charisse Nguyen RPh - 02/02/2024 3:57 PM EDT Primary Care Pharmacy Rescheduling Outreach Call center, please contact patient and reschedule in person, telephone, and virtual visit for Diabetes management within ~4 week(s). (Visit length: 60 minutes - NEW) Thank you, Charisse Nguyen PharmD, DARRELL Primary Care Clinical Feller Operator 02/02/2024 3:57 PM [facility] Work Phone: 1(809) 868-657607-05-2024 Telephone encounter Note* Telephone Encounter - Jessica Wynn LPN - 01/27/2024 12:59 PM EDT Patient updated and voiced understanding. Jessica Wynn LPN [facility]07-05-2024 Miscellaneous Notes* Telephone Encounter - Jessica Wynn LPN - 01/27/2024 12:59 PM EDT Patient updated and voiced understanding. Jessica Wynn LPN * Telephone Encounter - India Tavares APRN.CNP - 01/27/2024 12:53 PM EDT Prescription sent. India Tavares APRN.CNP * Telephone Encounter - Masha Oreilly - 01/27/2024 12:21 PM EDT Derik is calling India Tavares APRN.CNP today to request Medication Problem (Patient states that the insulin pen needles were not sent to the pharmacy. Please send script over to his pharmacy ) Patient has been identified by name and birthdate. Duration of symptoms: N/A Person calling: self Call patient at: at home [phone] (home) [phone] (cell) Was an appointment scheduled: No Closing statement: Results or non-symptom based questions: Thank you for calling [facility], your call will be returned within the next business day. Masha Luna documented in this encounterCinc[facility]07-[facility]-2024 Telephone encounter Note * Telephone Encounter - India Tavares APRN.CNP - 01/27/2024 12:53 PM EDT Prescription sent. India Tavares APRN.CNP [facility]07-05-2024 Telephone encounter Note* Telephone Encounter - Masha Oreilly - 01/27/2024 12:21 PM EDT Derik is calling India Tavares APRN.CNP today to request Medication Problem (Patient states that the insulin pen needles were not sent to the pharmacy. Please send script over to his pharmacy ) Patient has been identified by name and birthdate. Duration of symptoms: N/A Person calling: self Call patient at: at home [phone] (home) [phone] (cell) Was an appointment scheduled: No Closing statement: Results or non-symptom based questions: Thank you for calling [facility], your call will be returned within the next business day. Masha Luna [facility] Work Phone: [phone] Telephone encounter Note* Telephone Encounter - Hemalatha Delaney - 12/26/2023 10:23 AM EDT Called and spoke to patient to schedule Primary Care Pharmacy consult on 02/02/2024 (soonest available at [facility]). [facility]06-03-2024 Miscellaneous Notes* Telephone Encounter - Hemalatha Delaney - 12/26/2023 10:23 AM EDT Called and spoke to patient to schedule Primary Care Pharmacy consult on 02/02/2024 (soonest available at [facility]). documented in this encounterCincinnati [facility] Center05-21-2024 Telephone encounter Note * Telephone Encounter - Leann Hill LPN - 12/13/2023 1:23 PM EDT Order, demographics and office note faxed to [facility] at [phone]. Patient telephoned and notified. Will follow up with [employer]. Patient will call office back if has any further issues. Leann Hill LPN [facility]05-21-2024 Miscellaneous Notes* Telephone Encounter - Leann Hill LPN - 12/13/2023 1:23 PM EDT Order, demographics and office note faxed to [facility] at [phone]. Patient telephoned and notified. Will follow up with [employer]. Patient will call office back if has any further issues. Leann Hill LPN * Telephone Encounter - Carole Greer - 12/13/2023 11:51 AM EDT Derik is calling Juan R Osullivan MD [...] calling: self Call patient at: on cell [phone] (home) [phone] (cell) Was an appointment scheduled: No Closing statement: Results or non-symptom based questions: Thank you for calling [facility], your call will be returned within the next business day. Carole Greer documented in this encounterCincinnati [facility] Center05-21-2024 Telephone encounter Note * Telephone Encounter - Carole Greer - 12/13/2023 11:51 AM EDT Derik is calling Juan R Osullivan MD [...] calling: self Call patient at: on cell [phone] (home) [phone] (cell) Was an appointment scheduled: No Closing statement: Results or non-symptom based questions: Thank you for calling [facility], your call will be returned within the next business day. Carole Greer [facility]05-13-2024 Instructions* Patient Instructions* Podlogar, India, FRENCH [employer] B[employer]ER.SPORTS FITNESS AND WELLNESS DIRECTOR - 12/05/2023 3:15 PM EDT Images from the original note were not included. To schedule a diabetic eye exam at the [facility] [place], please call: [phone] Online resources to learn more https://my.[facility].org/health/diseases/2754-nuwirgjv-tfzolkdctzb https://www.diabetes.org/diabetes/complications/eye-complications https://www.aoa.org/healthy-eyes/dzu-xoj-zyujpy-conditions/diabetic-retinopathy? sso=y https://www.[employer]Ad.[employer] References 1. National Diabetes Statistics Report 2020: Estimates of Diabetes and Its [place] in the [facility]. Center for Disease Control and Prevention; 2020. Available at: https://www.cdc.gov/diabetes/pdfs /data/statistics/hwqeyymy-azujpisj-wkthuwzjny-report.pdf 2. Estefania Rios, Razia Bush, Bala Montenegro, Kasie Hermosillo, Klarissa Farrell, Red Lewis, Walt Siegel, Madi Genao; Diabetic Retinopathy: A Position Statement by the Citizen Of [place] Diabetes Association. Diabetes Care 22 September 2016; 40 (3): 412-418 documented in this encounterCincinnati [facility] Medical Center05-13-2024 History of Present illness Narrative* India Tavares APRN.CNP - 12/05/2023 2:51 PM EDT 12/05/2023 Patient presents with: Yearly Exam SUBJECTIVE: [...] Morbid obesity with BMI of 40.0-44.9, adult ([facility]) SILVANO (obstructive sleep apnea) severe Seasonal allergies Snoring Type 2 diabetes mellitus without complication, without long-term current use of insulin ([facility]) 03/09/2021 ALLERGIES Losartan and Seasonal Allergies [...] [facility] discussed risks of untreated sleep apnea- verbalizes understanding - CPAP DEVICE, WITH HUMIDIFIER 7. Depression screening - ICD9: V79.0, ICD10: Z13.31 - BEHAVIORAL HEALTH SCREENING India Tavares, ANDRES.SPORTS FITNESS AND WELLNESS DIRECTOR Prescription instructions reviewed with patient as applicable. Patient advised if symptoms do not improve or if symptoms worsen sooner, to contact their primary care physician. Potential red flag symptoms discussed with the patient. Reviewed appropriate action plan to take if red flag symptoms occur. Patient agreeable to treatment plan. documented in this encounterCincinnati [facility] Medical Center09-19-2023 History of Present illness Narrative* India Tavraes APRN.HONORIO - 04/12/2023 1:55 PM EDT 04/12/2023 Patient presents with: Rash I have communicated my name and active licensure. The patient's identity and physical location wereverified at the time of this visit. Either the patient or their legal medical representative has been informed of the risks and benefits of -- and alternatives to -- treatment through a remote evaluation andconsents to proceed with the evaluation remotely. SUBJECTIVE: This is a 58 year old that is here today for Above Complaints. Developed rash eight days ago after doing some landscaping. Originally on right arm, but has spreadto the left arm and now a couple of spots on his left thigh. Has been using caladryl and medicated soap with little relief. Areas are itching PAST MEDICAL HISTORY Diagnosis Date Coronary artery disease Erectile dysfunction Essential hypertension GERD (gastroesophageal reflux disease) Hyperlipidemia Morbid obesity with BMI of 40.0-44.9, adult ([facility]) SILVANO (obstructive sleep apnea) severe Seasonal allergies Snoring Type 2 diabetes mellitus without complication, without long-term current use of insulin ([facility]) 03/09/2021 ALLERGIES Losartan and Seasonal Allergies [...] follow-up if symptoms fail to improve India Tavares, [employer].SPORTS FITNESS AND WELLNESS DIRECTOR Prescription instructions reviewed with patient as applicable. [...] which included preparing to see the patient, sksy-fj-ttmc patient care, completing clinical documentation, obtaining and/or reviewing separately obtained history, performing a medically appropriate examination, counseling and educating the pat ient/family/caregiver, and ordering medications, tests, or procedures. documented in this encounterCinc[facility] Center11-29-2022 Miscellaneous Notes* Telephone Encounter - Juan R Osullivan MD - 06/22/2022 11:20 AM EST Rx for Cialis 10 mg sent to pharmacy. Contact our office if symptoms not improved on this dosage. * Telephone Encounter - Myriam Lynch RN - 06/22/2022 11:02 AM EST Patient contacted and states he would like to try the Cialis due to wanting something stronger thanViagra 100 mg. Uses [facility] in [place]. Thank you. * Telephone Encounter - Juan R Osullivan MD - 06/22/2022 10:48 AM EST He is on 100 mg of viagra which is max dose for this medication. Does he still want the refill? Would he like to try Cialis PRN instead to see if it works better for him? * Telephone Encounter - Myriam Lynch RN - 06/22/2022 10:34 AM EST Pt calling and requesting refill of Viagra. He is also asking PCP if he can have a stronger dose? Script pended for review and completion. Please advise patient. Thank you. documented in this encounterCincinnati [facility] Medical Center11-03-2022 History of Present illness Narrative* Juan R Osullivan MD - 05/27/2022 1:28 PM EDT Chief Complaint Patient presents with: Physical HPI [...] past [address] Brandt in [place]. Reports this was normal/negative. Last Podiatry exam [...] Morbid obesity with BMI of 40.0-44.9, adult ([facility]) SILVANO (obstructive sleep apnea) severe Prediabetes Seasonal allergies Snoring Type 2 diabetes mellitus without complication, without long-term current use of insulin ([facility]) 03/09/2021 Previous Surgical History PAST SURGICAL [...] by mouth once daily. (Patient taking differently: Take25 mg by mouth once daily. Taking once [...] (FLONASE) 50 mcg/actuation nasal spray Use 1 Dallas in each nostril once daily. (Patientnot taking: Reported on 07/21/2021 ) No current [...] incontinence, No difficulty urinating, nocturia > 1 timeper night or hematuria MUSCULOSKELETAL: Negative for joint [...] arise. - Discussed diabetic education issues of residential diabetic complications, hypoglycemic symptoms, hyperglycemic symptoms, diet, [...] Juan R Osullivan MD documented in this encounterCincinnati [facility] Center04-15-2022 Miscellaneous Notes* Telephone Encounter - Sangeeta Daly LPN - 11/06/2021 11:25 AM EDT Patient notified and voiced his understanding. * Telephone Encounter - Leann Hill LPN - 11/06/2021 9:44 AM EDT Patient telephoned. Message left to call back for update. Leann Hill LPN * Telephone Encounter - India Tavares APRN.CNP - 11/06/2021 7:42 AM EDT Please call patient and let him know A1c hs improved- continue current medication, diet and exercise. The rest of his blood work and his urine is normal. India Tavares APRN.CNP documented in this encounterCincinnati Va Medical Center04-13-2022 History of Present illness Narrative* India Tavares APRN.CNP - 11/04/2021 1:08 PM EDT 11/04/2021 Patient presents with: Diabetes Physical SUBJECTIVE: This is a 56 year old that is here today for Above Complaints. . DIABETES MELLITUS: Mr. Gonzalez was last seen on 03/23/2022. Since our last visit he denies excessivethirst or increased frequency of urination, chest pain or dyspnea , numbness, tingling or pain in extremities, new or unusual visual symptoms, low sugar/hypoglycemic reactions, weight loss/gain, light headedness/dizziness and bowel changes/loose stools. Follows a diabetic [...] week. Doesn't like how it feels over hismouth and face. BP elevated today on arrival [...] Morbid obesity with BMI of 40.0-44.9, adult ([facility]) SILVANO (obstructive sleep apnea) severe Prediabetes Seasonal allergies Snoring Type 2 diabetes mellitus without complication, without long-term current use of insulin ([facility]) 03/09/2021 ALLERGIES Seasonal Allergies MEDICATIONS Current [...] (FLONASE) 50 mcg/actuation nasal spray Use 1 Dallas in each nostril once daily. (Patientnot taking: Reported on 07/21/2021 ) No current [...] starch, healthy oil intake (olive oil), healthy protein(fish) along the lines of the Mediterranean diet. [...] agreeable to treatment plan. documented in [facility] encounterMer[facility] note Author Madi Garza [facility] Note Date/Time April 08, 2025 12:14pm [facility] Medical Records Department [address] [place] [address] Anesthesia Postop Eval I 04/08/251212 MR#: [id number] Acct: [id number] Name: PHI GONZALEZ Rep #:[id number] : 1965 60 From: Madi Garza PCP: Dr. Pepe Osullivan MD Status :REG [facility] [place] Race: C Location: [place] [address] Anesthesia: Postop Eval I Current Vital Signs Temperature: 98.1 F Pulse Rate: 81 Blood Pressure: 112/74 Respiratory Rate: 16 Pulse Ox: 98 Oxygen Delivery Method: Room Air Assessment Airway patent: Yes Spontaneous unlabored respirations: Yes Mental status: Awake and Calm nausea: No Vomiting: No Anesthesia Complication: No Fluid Hydration Crystalloid volume administer (ml): 600 Total IV fluid infused: 600 Progress Note Anesthesia document: Postop Eval 1 completed: Yes 04/08/251213 <Electronically signed by Madi Garza > Date _ Madi Garza Cosigner Signature: Date CC: ~ Signed [facility] Work Phone: Consult note Author Asaf Keyes [facility] Note Date/Time April 08, 2025 1:02pm [facility] Medical Records Department [address] [place] [address] Anesthesia Postop Eval II 04/08/25 1221 MR#: [id number] Acct: [id number] Name: PHI GONZALEZ Rep #:[id number] : 1965 60 From: Asaf Keyes MD PCP: Dr. Pepe Osullivan MD Status :REG [facility] Y Race: C Location: [place] [address] Anesthesia Postop Eval I Sum Postop Eval Completion status Anesthesia document: Postop Eval 1 completed: Yes Anesthesia Postop Eval I Summary Anesthesia Postop Eval I Summary: Anesthesia Postop Eval I: Assessment Summary Airway patent Yes 04/08/25 12:14 [email or web address] Spontaneous unlabored Yes 04/08/25 12:14 [email or web address] respirations Mental status Awake,Calm 04/08/25 12:14 [email or web address] nausea No 04/08/25 12:14 [email or web address] Vomiting No 04/08/25 12:14 [email or web address] Anesthesia Postop Eval I: Fluid Summary Crystalloid volume administer 600 04/08/25 12:14 [email or web address] (ml) Colloids volume administered ( ml) Blood Product volume administered (ml) Total IV fluid infused 600 04/08/25 12:14 [email or web address] Anesthesia Postop Eval I: Summary Notes Anesthesia Complication No 04/08/25 12:14 [email or web address] Anesthesia Complication Comment: Post-operative progress note Anesthesia: Postop Eval II Evaluation Mental status: Awake Pain Level: 0 nausea: No Vomiting: No 04/08/25 1221 <Electronically signed by Asaf Keyes MD > Date _ Asaf Keyes MD Cosigner Signature: Date CC: ~ Signed [facility] Work Phone: Discharge summary Author Henrry Tian [facility] Note Date/Time March 19, 2025 3: 37pm [facility] Medical Records Department [address] [place] [address] Discharge Summary 03/19/25 1532 MR#: [id number] Acct: [id number] Name: PHI GONZALEZ Rep #:[id number] : 1965 60 From: Henrry landers MD PCP: Dr. Pepe Osullivan MD Status :ADM IN [facility] Prov[facility] Date of Admission: 03/17/25 Primary Care Physician: Dr. Pepe Osullivan MD Consultations 03/17/25 12:33 Consult: Gastroenterology Routine Consulting Provider: [facility] Reason for Consult: Colonic mass EMERGENT Consult: No Notified: Yes Date Notified: 03/17/25 Time Notified: 12:25 Method of Notification: Verbal Consult: General Surgery Routine Consulting Provider: Fadi Caceres Reason for Consult: Colonic mass EMERGENT Consult: No Notified: Yes Date Notified: 03/17/25 Time Notified: 12:25 Method of Notification: Verbal Reason For Visit: COLONIC MASS Diagnosis Discharge Diagnosis (1) Colonic mass: Status: Acute Code(s): K63.89 - Other specified diseases of intestine (2) Ischemic colitis: Status: Acute Code(s): K55.9 - Vascular disorder of intestine, unspecified Medications at Discharge Home Medications empagliflozin 10 mg tablet (Jardiance) 10 mg PO DAILY 03/17/25 insulin glargine 100 unit/mL (3 mL) subcutaneous pen (Lantus Solostar U-100 Insulin) 10 unit subcut QPM 03/17/25 amoxicillin 875 mg-potassium clavulanate 125 mg tablet 1 tab PO BID #16 tabs 03/19/25 Hospital Course Operations None Procedures Colonoscopy Summary of Care Provided Minutes Spent on Discharge: 42 Hospital Course: Per HPI: PHI GONZALEZ, is a 60 M who presents with 11-day history of constipation. Patient initially presented to [place] emergency department CT ofthe abdomen and pelvis was questionable for diverticulitis with an abscess versus sigmoid mass. Patient did receive IV antibiotics plan was for patient tohave been admitted for subsequent eval patient however requested to be transferred to [facility]. Patient did report nausea but denied any vomiting. Reportspassing some mucus per rectum. The surgeon on-call was notified prior to patient being admitted. Hospital Course: 1. Acute diverticulitis?60-year-old male presented to the hospital with significant constipation, he presented to [facility] where they performed a CT scan of his abdomen and pelvis that demonstrated diverticulitis versus sigmoid mass. Repeat CT scan here seem to show a more definitive sigmoid mass with obstruction so a colonoscopy was performed however it demonstrated inflammation and he was able to pass the scope through the obstruction. Today the abdominal pain is much improved and he is having bowel movements, albeit liquid, and is passing gas. Because of this improvement and the findings of thecolonoscopy that did not demonstrate a colonic mass the possibility of dischargewas discussed with him and he expressed understanding of the risks and benefits of going home and would like to try to go home today. I discussed the case withgeneral surgery who was okay with it assuming he tolerated lunch which he did. He was given recommendations for a low residue diet and I did spend about 30 to 45 minutes discussing lifestyle modifications specifically dietary modificationsfor his diabetes and weight loss. The plan will be for him to follow-up with gastroenterology to schedule an outpatient colonoscopy in 3 to 4 months, and then he will follow-up with general surgery as well because he will still likelyregardless of the pathology we will need his the sigmoid section resected however if he can get his blood sugar under control and he can potentially avoidan ostomy from his outpatient surgery. Also recommend follow-up with his PCP in3 to 5 days. Will continue with Augmentin for another 8 days to complete treatment of his acute diverticulitis. 2. Type 2 diabetes?when extensive discussion on lifestyle modifications as wellas dietary changes. Will not change his blood sugar medications at this time and will continue with his Lantus and his Jardiance. He will need close follow-up as he can become severely hypoglycemic if he does make significant lifestyle changes with these medications. Of note his A1c was 9.9 but he does admit to not following any kind of specific diet for the last 5 to 6 weeks because of work. Physical Exam Narrative General: Alert, Oriented x3, Cooperative, No apparent distress HEENT: Atraumatic, PERRLA, EOMI, Normocephalic Oral: Moist Mucosa Neck: Supple, No JVD Lungs: Clear to auscultation, Normal air movement, No rhonchi, No wheeze, No rales Cardiovascular: Regular rate, Regular Rhythm, Normal S1, Normal S2, No murmurs Abdomen: Soft, Non Tender, Non-Distended, No Hepato-splenomegaly Extremities: No edema, Capillary Refill Less than 3 Seconds Skin: No rashes, No breakdown Musculoskeletal: No Tenderness to Palpation of Joints or Extremities Neurological: No focal neurological deficits, Motor Exam 5/5 strength throughout, Sensory exam intact to light touch and pain Psych/Mental Status: Normal Affect, Appropriate Weight / BMI Weight Weight: 253 lb 15.56 oz Body Mass Index (BMI) 38.6 ABG / Lab / Microbiology Data 03/19/25 06:31 03/19/25 06:31 Laboratory: Laboratory Results - last 24 hr 03/18/25 17:25: POC Glucose 91 03/18/25 22:03: POC Glucose 117 H 03/19/25 06:31: WBC 9.8, RBC 4.57 L, Hgb 13.5, Hct 39.2 L, MCV 85.8, MCH 29.5, MCHC 34.4, RDW Std Deviation 36.9, RDW Coeff of Tre 11.8, Plt Count 330, MPV 9.1, Immature Gran % (Auto) 0.500, Neut % (Auto) 76.2 H, Lymph % (Auto) 12.8 L, [place] % (Auto) 7.2, Eos % (Auto) 2.8, Baso % (Auto) 0.5, Absolute Neuts (auto) 7.5, Absolute Lymphs (auto) 1.26, Nucleated RBC % 0, Sodium 137, Potassium 3.4, Chloride 102, Carbon Dioxide 22.8, Anion Gap 12, BUN 12, Creatinine 0.88, Estim Creat Clear Calc 108.63, Est GFR (MDRD) Non-Af 98, BUN/Creatinine Ratio 13.6, Glucose 98, Calcium 8.6 03/19/25 06:32: POC Glucose 104 D/C Instructions Call your doctor if you observe: Fever of 101 or Higher, Shortness of breath, Dizziness, Fainting spells, Swelling in the ankles, Chest pain and Increased palpitations (irregular heartbeat) DC O2, CPAP, BIPAP Needs Home O2 Discharge instructions: No Meaningful Use Info Meaningful Use Meaningful Use Diagnoses (Choose all that apply): None applicable Discharge Plan Admission Admit Date/Time: 03/17/25 12:22 Attending Provider: Henrry Tian Primary Care Provider: Pepe Osullivan Consulting Providers: Colby Romo; Cosmo,Sae; Gwendolyn Cooper; Klarissa Butler; Caitie Sher; Fadi Caceres; Benitez Bianchi Instructions Patient Instructions: Diabetes Food Tips Ch, Diabetes Exercise Program Start, Diabetes Fitness Progress, Diabetes Carbs Fats Protein Additional Instructions / Restrictions: What are low-fiber foods? If your doctor tells you to follow a low-fiber diet, here are low-fiber foods you can eat and higher-fiber foods you should avoid. Remember to always choose foods that you would normally eat. Do not try any foods that caused you discomfort or allergic reactions in the past. If you are on a ?low-residue diet,? your food choices are even more restricted than those listed below. Talk with your cancer care team or dietitian if you have questions about certainfoods or amounts. Meat, fish, poultry, and protein Eat: Tender cuts of meat Ground meat Tofu Fish and shellfish Smooth peanut butter Eggs Bake, broil, or poach meats, and use mild seasonings. Try preparing meats as stews, roasts, meatloaves, casseroles, sandwiches, and soups using ingredients on the approved lists. Scramble, poach, or boil eggs; or make omelets, souffl?s, custard, puddings, andcasseroles, using ingredients noted below. You might want to ask your doctor, nurse, or dietitian about other foods may be OK for you to eat, and find out when you can go back to your normal diet. Avoid: All beans, nuts, peas, lentils, and legumes Processed meats, hot dogs, sausage, and cold cuts Tough meats with gristle Dairy: Milk and cheese Eat: Only in small to medium amounts and only if they don?t cause problems for you Milk, chocolate milk, buttermilk, and milk drinks Yogurt without seeds or granola Sour cream Cheese Cottage cheese Custard or pudding Ice cream or frozen desserts (without nuts) Cream sauces, soups, and casseroles You can use these items in desserts, snacks, or breads. Bread, cereals, and grains Eat: White breads, waffles, Mongolian toast, plain white rolls, or white bread toast Pretzels Plain pasta or noodles White rice Crackers, zwieback, cari, and matzoh (no cracked wheat or whole grains) Cereals without whole grains, added fiber, seeds, raisins, or other dried fruit Use white flour for baking and making sauces. Grains, such as white rice, Cream of Wheat, or grits, should be well-cooked. Include the above grains in casseroles, dumplings, souffl?s, cheese strata, kugels, and pudding. Avoid any food that contains: Brown or wild rice Whole grains, cracked grains, or whole wheat products Kasha (buckwheat) Cornbread or cornmeal Keegan crackers Bran Wheat germ Nuts Granola Coconut Dried fruit Seeds Vegetables and potatoes Eat: Tender, well-cooked fresh or canned vegetables without seeds, stems, or skins Cooked sweet or white potatoes without skins Strained vegetable juices without pulp or spices You can also eat these with cream sauces, or in soups, souffl?s, kugels, and casseroles. Avoid: All raw or steamed vegetables All types of beans Potatoes with skin Peas [place] Cabbage, broccoli, cauliflower, [place] sprouts, and greens Sauerkraut Onions Fruits and desserts Eat: Soft canned or cooked fruit without seeds or skins (small amounts) Small amounts of well-ripened banana Strained or clear juices Small amounts of soft cantaloupe or honeydew melon Cookies and other desserts without whole grains, dried fruit, berries, nuts, or coconut Sherbet and popsicles Serving suggestions include gelatins, milk shakes, frozen desserts, puddings, tapioca, cakes, and sauces. Avoid: All raw or dried fruits Berries Prune juice, prunes, and raisins Other foods Eat: Mayonnaise and mild salad dressings Margarine, butter, cream, and oils in small amounts Plain gravies Plain bouillon and broth Ketchup and mild mustard Spices, cooked herbs, and salt Sugar, honey, and syrup Clear jellies Hard candy and marshmallows Plain chocolate Avoid: Marmalade Pickles, olives, relish, and horseradish Popcorn Potato chips Liquids Keep in mind that low-fiber foods cause fewer bowel movements and smaller stools. You may need to drink extra fluids to help prevent constipation while you are on a low-fiber diet. Drink plenty of water unless your doctor tells you otherwise, and use juices and milk as noted above. Discharge Orders/Prescriptions Prescriptions: New amoxicillin-pot clavulanate 875-125 mg tablet 1 tab PO BID Qty: 16 0RF Continued Jardiance 10 mg tablet 10 mg PO DAILY insulin glargine [Lantus Solostar U-100 Insulin] 100 unit/mL (3 mL) insulin pen 10 unit subcut QPM Referrals / Follow Up: Pepe Oslulivan MD [Primary Care Provider] - Within 1 Week Fadi Caceres MD [Med Staff - Active Staff] - Within 2 Weeks Sae Wilburn DO [Med Staff - Active Staff] - Within 1 Month Disposition Disposition (needs filled in before D/C Order can be placed): Home, Self Care Charges/Coding Visit Charges Inpatient E&M: 18042 Disch Hosp >30min 03/19/25 153 <Electronically signed by Henrry Tian MD> Cosigner Signature (if applicable): CC: Dr. Pepe Osullivan MD; Dr. Henrry Tian MD~ Signed [facility] Work Phone: Evaluation note* Diagnosis Type 2 diabetes mellitus without complication, without long-term current use of insulin (HCC)- Primary Hypertension, essential Unspecified essential hypertension SILVANO (obstructive sleep apnea) Obstructive sleep apnea (adult) (pediatric) [facility] Diagnosis Annual physical exam- Primary Routine [...] neoplasm of prostate [facility] Diagnosis Skin tag Unspecified hypertrophic and atrophic condition of skin [facility] Diagnosis Irritant contact dermatitis, unspecified trigger- Primary [facility] Diagnosis Annual physical exam- Primary Routine general medical examination at a health care facility Type 2 diabetes mellitus without complication, without long-term current use of insulin (HCC) Elevated triglycerides with high cholesterol Mixed hyperlipidemia Essential hypertension Unspecified essential hypertension Hyperlipidemia, mixed Mixed hyperlipidemia SILVANO (obstructive sleep apnea) Obstructive sleep apnea (adult) (pediatric) Depression screening Screening for depression [facility]* Diagnosis Type 2 diabetes mellitus with hyperglycemia, unspecified whether terminal makeup operator insulin use (HCC)- Primary [facility] Diagnosis Type 2 diabetes mellitus with hyperglycemia, unspecified whether residential insulin use (HCC)- Primary [facility] Diagnosis Type 2 diabetes mellitus with hyperglycemia, unspecified whether terminal makeup operator insulin use (HCC)- Primary [facility] Diagnosis Type 2 diabetes mellitus with hyperglycemia, unspecified whether residential insulin use (HCC) [facility]* Diagnosis Acute constipation- Primary Unspecified constipation Essential (primary) hypertension Unspecified essential hypertension Gastro-esophageal reflux disease without esophagitis Esophageal reflux Type 2 diabetes mellitus without complication, unspecified whether residential insulin use (HCC) Acute constipation Unspecified constipation documented in this encounter [facility] note* Diagnosis Acute constipation Unspecified constipation [facility] Diagnosis Acute diverticulitis- Primary Diverticulitis of colon (without mention of hemorrhage) Ischemic colitis (HCC) Unspecified vascular insufficiency of intestine Acute constipation Unspecified constipation Type 2 diabetes mellitus with hyperglycemia, with long-term current use of insulin (HCC) Essential hypertension Unspecified essential hypertension Pure hypercholesterolemia SILVANO (obstructive sleep apnea) Obstructive sleep apnea (adult) (pediatric) [facility] Author Sae Wilburn [facility] Note Date/Time April 08, 2025 11:26am [facility] Medical Records Department [address] [place] [address] History & Physical Exam 04/08/25 1123 MR#: [id number] Acct: [id number] Name: PHI GONZALEZ Rep #:[id number] : 1965 60 From: Sae Wilburn DO PCP: Dr. Pepe Osullivan MD [facility] Location: [place] [address] HPI - General General Date of Admission: 04/08/25 Date of Service: 04/08/25 Chief Complaint: abnormal CT scan HPI Narrative PHI GONZALEZ, is a 60-year-old male, past medical history of poorly controlleddiabetes, who presents from outside facility with diagnosis of left colon mass that is causing at least partial large bowel obstruction. Patient reports 1 previous colonoscopy approximately 10 years ago that was unremarkable and his findings. However, for the last 11 days he has not had a true bowel movement. CT imaging demonstrates 10 x 7 cm mass of the sigmoid colon with surrounding diverticular disease. Therefore, differential must include neoplastic versus diverticular disease with intramural abscess. Repeat CT imaging with p.o. contrast was obtained but phase was suboptimal since contrast is yet to reach the area of the mass lesion. I have discussed with radiology techs that we should plan to obtain delayed pictures. Patient is currently completing a bowelprep for planned colonoscopy tomorrow. I discussed findings of patient's workupthus far with him at some length. Hand drawings were used to illustrate relevant anatomy and I also reviewed with him his index CT imaging. I shared the possibility of laparoscopic assisted sigmoid colectomy versus LAR with primary colorectal anastomosis versus sigmoid colectomy with ostomy versus diverting ostomy. I shared that if he is unable to have much output with his colon prep and his A1c remains prohibitive then I would strongly recommend we proceed with a colostomy as his risks for anastomotic leak would be prohibitive. He confirmed understanding of this conversation. I have obtained a updated hemoglobin A1c to assess for his glucose control given that his previous value is now 15 months old. Will continue to follow and evaluate patient next tomorrow a.m. Please notify of any acute changes. CT 03/17/2025 10 cm lesion is located in the mid to proximal sigmoid colon. This seems to have a nearly apple-core appearance to it this is a barium enema finding indicating colon carcinoma. The thickened tumor produces a nearly occlusive passage to contrast, but there is contrast seen on both sides a vague suggestion of a string of contrast getting through, also findings associated with colon cancer No pathologically enlarged lymph nodes are identified. Questionable punctate lymph nodes in the mesentery COLON 03/18/2025 - inflammatory lesion - Preparation of the colon was poor. - Diverticulosis in the recto-sigmoid colon, in the sigmoid colon and in the descending colon. - Segmental severe inflammation was found in the recto-sigmoid colon, in the sigmoid colon and in the descending colon secondary to ischemic colitis. Biopsied. - Benign tumor in the sigmoid colon and in the descending colon. Biopsied. - Stool in the sigmoid colon, in the descending colon, at the splenic flexure, in the transverse colon, at the hepatic flexure, in the ascending colon and in the cecum. F/U w/ Dr. Caceres 03/28/2025 Patient is 60-year-old male who makes post hospital follow-up today after admission for sigmoid colon mass that appeared nearly obstructing, however, subsequent workup showed it to be nonobstructive and inflammatory in nature. Patient appears to be doing quite well today with no clinical symptoms of eitherabdominal pain or obstruction. He completed his prescribed antibiotic course and appears to be making significant strides with his diabetes control. I sharedthat I remain cautiously optimistic as I have had past patients where initial colonoscopic biopsies were benign but final surgical pathology still showed an underlying malignancy. I recommended follow-up CT imaging now that we are 2 weeks out from his prior studies and he has clinically shown some any improvements. Additionally he has pending follow-up with GI next week presumably to schedule follow-up colonoscopy. For the interim he is encouraged to try to increase his protein intake can liberalize his dietary intake. I alsoshared there may be some benefit him beginning a probiotic in addition to his activity having recently completed antibiotics. Lastly I encouraged him to continue his work with his fluid intake and diabetes control (I stated that the potential side effects of Ozempic appeared outweighed by the potential benefits of improved glycemic control as he increases his dietary intake). Plan: ? Repeat CT abdomen pelvis with p.o. and IV contrast ? Continue restricted diet but incorporate more protein ? Continued diligence with maintaining well-hydrated ? Continue to work on diabetes control ? Follow-up GI reevaluation and repeat colonoscopy (2) Colonic mass: Status: Acute Orders: Orders Abdomen/Pelvis WITH Contrast [facility] Medical History Wears glasses Alcohol use Insulin dependent diabetes mellitus History of diverticulitis Non-smoker CPAP (continuous positive airway pressure) dependence HTN (hypertension) Diabetes Sleep apnea Home Medications ?Medication ?Instructions ?Recorded ?Last Taken ?Type empagliflozin 10 mg tablet 10 mg PO DAILY 03/17/2506/18 History (Jardiance) insulin glargine 100 unit/mL (3 10 unit subcut QPM Unknown History mL) subcutaneous pen (Lantus Solostar U-100 Insulin) lisinopril 10 mg tablet 10 mg PO QDAY 03/28/25 Unkno wn History semaglutide 0.25 mg or 0.5 mg (2 0.25 mg subcut QWEEK 03/28/25 Unknown History mg/3 mL) subcutaneous pen injector (Ozempic) Allergy/AdvReac Type Severity Reaction Status Date / Time No Known Allergies Allergy Verified 04/08/25 10:41 Surgical History History of esophagogastroduodenoscopy (EGD) Hx of colonoscopy Social History Smoking Status: Never smoker alcohol intake: current details: social substance use type: does not use what type of physical activity do you participate in: none ROS Constitutional Constitutional: Denies fatigue, fever(s), poor appetite, weight gain or weight loss Gastrointestinal Gastrointestinal: Denies belching, bloating, change in bowel habits, change in stool character, chewing difficulty, coffee ground emesis, constipation, cramping, diarrhea, dyspepsia, dysphagia, early satiety, excessive flatus, fecalincontinence, heartburn, hematemesis, hematochezia, hemorrhoids, loose stools, melena, nausea, odynophagia, rectal bleeding, tenesmus, vomiting or weight changes Vital Signs Vital Signs Vital Signs: 04/08/25 10:49 04/08/25 10:49 Temperature 97.5 F L Temperature Source Temporal Pulse Rate 76 Respiratory Rate 16 Respiratory Pattern Normal Blood Pressure 126/86 H Blood Pressure Mean 99 Blood Pressure Source Monitor Blood Pressure Position Sitting Blood Pressure Location Left Arm Pulse Ox 96 Oxygen Delivery Method Room Air Weight Weight: 247 lb 9.266 oz Body Mass Index (BMI) 37.6 Physical Exam Const alert, oriented x3, no apparent distress and healthy appearing General Appearance: cooperative GI normal to inspection, nondistended, normoactive bowel sounds, soft to palpation,non-tender and non-distended Percussion: normal to percussion Rectal Exam: deferred Assessment & Plan Assessment/Plan (1) Abnormal finding on GI tract imaging: (2) Constipation: (3) Ischemic colitis: PLAN: Assessment and Plan Assessment and Plan (1) Abnormal finding on GI tract imaging: Status: Acute (2) Constipation: Status: Acute Plan: Continuing with hydration and dietary modifications alongside MiraLax administration to alleviate constipation. Monitor bowel movements and reassess digestive function post-dietary change. Plan 60-year-old male with a history of severe constipation and recently diagnosed severe diverticulitis presenting with suspicion of a colonic mass. Initial presentations suggested constipation linked to motility issues, possibly exacerbated by lack of adequate solid diet intake and water consumption. Imagingraised concerns of a possible mass, meriting further investigation via colonoscopy and additional CT imaging to ensure comprehensive assessment for malignancy exclusion. The patient's stable vital signs and absence of acute abdominal pain post-discharge denote a favorable response to antibiotics and dietary modifications pending further evaluations. Patient Instructions: - Follow your restricted diet and gradually reintroduce solid foods based on comfort. - Drink enough water to help with bowel regularity. - Take MiraLax as directed to prevent constipation. - Attend all scheduled appointments, including the upcoming CT scan and colonoscopy. - SuTab (Jardiance 3d hold) - Cease Ozempic initiation until further notice, pending CT scan review. - Report any new symptoms, especially abdominal pain or changes in bowel habits,promptly. 04/08/25 1126 <Electronically signed by Sae Friend > Cosigner Signature (if applicable): CC: Dr. Pepe Osullivan MD; Sae Wilburn, ~ Signed [facility] Work Phone: Hospital Discharge instructionsAdditional Instructions What are low-fiber foods? If your doctor tells you to follow a low-fiber diet, here are low-fiber foods you can eat and higher-fiber foods you should avoid. Remember to always choose foods that you would normally eat. Do not try any foods that caused you discomfort or allergic reactions in the past. If you are on a low-residue diet, your food choices are even more restricted than those listed below. Talk with your cancer care team or dietitian if you have questions about certain foods or amounts. Meat, fish, poultry, and protein Eat: Tender cuts of meat Ground meat Tofu Fish and shellfish Smooth peanut butter Eggs Bake, broil, or poach meats, and use mild seasonings. Try preparing meats as stews, roasts, meatloaves, casseroles, sandwiches, and soups using ingredients on the approved lists. Scramble, poach, or boil eggs; or make omelets, souffl s, custard, puddings, and casseroles, using ingredients noted below. You might want to ask your doctor, nurse, or dietitian about other foods may be OK for you to eat, and find out when you can go back to your normal diet. Avoid: All beans, nuts, peas, lentils, and legumes Processed meats, hot dogs, sausage, and cold cuts Tough meats with gristle Dairy: Milk and cheese Eat: Only in small to medium amounts and only if they don t cause problems for you Milk, chocolate milk, buttermilk, and milk drinks Yogurt without seeds or granola Sour cream Cheese Cottage cheese Custard or pudding Ice cream or frozen desserts (without nuts) Cream sauces, soups, and casseroles You can use these items in desserts, snacks, or breads. Bread, cereals, and grains Eat: White breads, waffles, [place] toast, plain white rolls, or white bread toast Pretzels Plain pasta or noodles White rice Crackers, zwieback, cari, and matzoh (no cracked wheat or whole grains) Cereals without whole grains, added fiber, seeds, raisins, or other dried fruit Use white flour for baking and making sauces. Grains, such as white rice, Cream of Wheat, or grits, should be well-cooked. Include the above grains in casseroles, dumplings, souffl s, cheese strata, kugels, and pudding. Avoid any food that contains: Brown or wild rice Whole grains, cracked grains, or whole wheat products Kasha (buckwheat) Cornbread or cornmeal Keegan crackers Bran Wheat germ Nuts Granola Coconut Dried fruit Seeds Vegetables and potatoes Eat: Tender, well-cooked fresh or canned vegetables without seeds, stems, or skins Cooked sweet or white potatoes without skins Strained vegetable juices without pulp or spices You can also eat these with cream sauces, or in soups, souffl s, kugels, and casseroles. Avoid: All raw or steamed vegetables All types of beans Potatoes with skin Peas [place] Cabbage, broccoli, cauliflower, [place] sprouts, and greens Sauerkraut Onions Fruits and desserts Eat: Soft canned or cooked fruit without seeds or skins (small amounts) Small amounts of well-ripened banana Strained or clear juices Small amounts of soft cantaloupe or honeydew melon Cookies and other desserts without whole grains, dried fruit, berries, nuts, or coconut Sherbet and popsicles Serving suggestions include gelatins, milk shakes, frozen desserts, puddings, tapioca, cakes, and sauces. Avoid: All raw or dried fruits Berries Prune juice, prunes, and raisins Other foods Eat: Mayonnaise and mild salad dressings Margarine, butter, cream, and oils in small amounts Plain gravies Plain bouillon and broth Ketchup and mild mustard Spices, cooked herbs, and salt Sugar, honey, and syrup Clear jellies Hard candy and marshmallows Plain chocolate Avoid: Marmalade Pickles, olives, relish, and horseradish Popcorn Potato chips Liquids Keep in mind that low-fiber foods cause fewer bowel movements and smaller stools. You may need to drink extra fluids to help prevent constipation while you are on a low-fiber diet. Drink plenty of water unless your doctor tells you otherwise, and use juices and milk as noted above.[facility] Work Phone: Reason for referral (narrative)No reason for referral information availableWHighland District Hospital Work Phone: Retxbh for visit Narrative* Diagnostic Procedure Only (Urgent) - Closed Specialty Diagnoses / Procedures Referred By Joe t Referred To Contact XR IMAGING Diagnoses Acute constipation Procedures XR ABDOMEN 2V ROUTINE SUPINE W UPRIGHT/DECUB/CTL RADIOLOGIC EXAM ABDOMEN 2 VIEWS Ingrid Huerta APRN.[employer] WELLNESS DIRECTOR [address] [place] [address] Phone: tel: fax: [place] [phone] Referral ID Status Reason Start Date Expiration Date V isits Requested Visits Authorized [id number] Closed Auto-Generate d Referral 03/15/2025 04/14/2026 1 1 [facility] Advance Directives No Advanced Directives Records FoundDocuments on File Type Date Recorded 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 Yes March 17, 2025 12:22pm Advance Directive Response Recorded Date/ Time Do you have a Healthcare Power of Burner Technician? Yes April 03, 2025 11:47am Do you have a Healthcare Power of Burner Technician? Yes March 17, 2025 12:22pm Summary Purpose Family History No Family History Records FoundNo Family History Records FoundNo Family History Records FoundNo Family History Records Found Chief Complaint and Reason for Visit Chief Complaint Admit Date COLONIC MASS March 17, 2025 12 :22pm COLONIC MASS March 17, 2025 12 :49pm COLONIC MASS March 17, 2025 5: 56pm COLONIC MASS March 18, 2025 10 :13am COLONIC MASS March 18, 2025 10 :17am COLONIC MASS March 18, 2025 3: 16pm COLONIC MASS March 19, 2025 11 :24am COLONIC MASS March 19, 2025 3: 32pm Reason for Visit Admit Date Colonic mass March 17, 2025 12 :22pm Ischemic colitis March 17, 2025 12 :22pm Large bowel obstruction March 17 12:22pm Chief Complaint Admit Date COLONIC MASS March 17, 2025 12 :22pm COLONIC MASS March 17, 2025 12 :49pm COLONIC MASS March 17, 2025 5: 56pm COLONIC MASS March 18, 2025 10 :13am COLONIC MASS March 18, 2025 10 :17am COLONIC MASS March 18, 2025 3: 16pm COLONIC MASS March 19, 2025 11 :24am COLONIC MASS March 19, 2025 3: 32pm HOSPITAL F/U - COLONIC MASS March 9:58am Chief Complaint Admit Date COLONIC MASS March 17, 2025 12 :22pm COLONIC MASS March 17, 2025 12 :49pm COLONIC MASS March 17, 2025 5: 56pm COLONIC MASS March 18, 2025 10 :13am COLONIC MASS March 18, 2025 10 :17am COLONIC MASS March 18, 2025 3: 16pm COLONIC MASS March 19, 2025 11 :24am COLONIC MASS March 19, 2025 3: 32pm HOSPITAL F/U - COLONIC MASS March 9:58am HOSP FU April 01, 2025 2:27pm Reason for Visit Admit Date Colonic mass March 17, 2025 12 :22pm Ischemic colitis March 17, 2025 12 :22pm Large bowel obstruction March 17 12:22pm Colonic mass March 28, 2025 9:58am Ischemic colitis March 28, 2025 9:58am Abnormal finding on GI tract imaging [facility] 2024 2:27pm Constipation April 01, 2025 2:27pm Reason for Visit Admit Date Colonic mass March 17, 2025 12 :22pm Ischemic colitis March 17, 2025 12 :22pm Large bowel obstruction March 17 12:22pm Colonic mass March 28, 2025 9:58am Ischemic colitis March 28, 2025 9:58am Abnormal finding on GI tract imaging Sep 2024 2:27pm Constipation April 01, 2025 2:27pm Abnormal finding on GI tract imaging Sep 2024 10:21am Constipation April 08, 2025 10:21am Ischemic colitis April 08, 2025 10:21am Additional Source Comments Source Comments (unrecognize d section and content) In the event this informatio n is protected by the Federal Confidentiality of Alcohol and Drug Abuse Patient Records regulations: The Federal rules restrict any use of the information to criminally investigate or prosecute any alcohol or drug abuse patient.[facility] the event this information is protected by the Federal Confidentiality of Alcohol and Drug Abuse Patient Records regulations: The Federal rules restrict any use of the information to criminally investigate or prosecute any alcohol or drug abuse patient.[facility] Center[facility] the event this information is protected by the Federal Confidentiality of Alcohol and Drug Abuse Patient Records regulations: The Federal rules restrict any use of the information to criminally investigate or prosecute any alcohol or drug abuse patient.[facility] Center[facility] the event this information is protected by the Federal Confidentiality of Alcohol and Drug Abuse Patient Records regulations: The Federal rules restrict any use of the information to criminally investigate or prosecute any alcohol or drug abuse patient.[facility] Center[facility] the event this information is protected by the Federal Confidentiality of Alcohol and Drug Abuse Patient Records regulations: The Federal rules restrict any use of the information to criminally investigate or prosecute any alcohol or drug abuse patient.[facility] Center[facility] the event this information is protected by the Federal Confidentiality of Alcohol and Drug Abuse Patient Records regulations: The Federal rules restrict any use of the information to criminally investigate or prosecute any alcohol or drug abuse patient.[facility] Medical CenterIn the event this information is protected by the Federal Confidentiality of Alcohol and Drug Abuse Patient Records regulations: The Federal rules restrict any use of the information to criminally investigate or prosecute any alcohol or drug abuse patient.[facility] Center[facility] the event this information is protected by the Federal Confidentiality of Alcohol and Drug Abuse Patient Records regulations: The Federal rules restrict any use of the information to criminally investigate or prosecute any alcohol or drug abuse patient.[facility] CenterIn the event this information is protected by the Federal Confidentiality of Alcohol and Drug Abuse Patient Records regulations: The Federal rules restrict any use of the information to criminally investigate or prosecute any alcohol or drug abuse patient.[facility] CenterIn the event this information is protected by the Federal Confidentiality of Alcohol and Drug Abuse Patient Records regulations: The Federal rules restrict any use of the information to criminally investigate or prosecute any alcohol or drug abuse patient.[facility] CenterIn the event this information is protected by the Federal Confidentiality of Alcohol and Drug Abuse Patient Records regulations: The Federal rules restrict any use of the information to criminally investigate or prosecute any alcohol or drug abuse patient.[facility] CenterIn the event this information is protected by the Federal Confidentiality of Alcohol and Drug Abuse Patient Records regulations: The Federal rules restrict any use of the information to criminally investigate or prosecute any alcohol or drug abuse patient.[facility] CenterIn the event this information is protected by the Federal Confidentiality of Alcohol and Drug Abuse Patient Records regulations: The Federal rules restrict any use of the information to criminally investigate or prosecute any alcohol or drug abuse patient.[facility] CenterIn the event this information is protected by the Federal Confidentiality of Alcohol and Drug Abuse Patient Records regulations: The Federal rules restrict any use of the information to criminally investigate or prosecute any alcohol or drug abuse patient.[facility] CenterIn the event this information is protected by the Federal Confidentiality of Alcohol and Drug Abuse Patient Records regulations: The Federal rules restrict any use of the information to criminally investigate or prosecute any alcohol or drug abuse patient.[facility] CenterIn the event this information is protected by the Federal Confidentiality of Alcohol and Drug Abuse Patient Records regulations: The Federal rules restrict any use of the information to criminally investigate or prosecute any alcohol or drug abuse patient.[facility] CenterIn the event this information is protected by the Federal Confidentiality of Alcohol and Drug Abuse Patient Records regulations: The Federal rules restrict any use of the information to criminally investigate or prosecute any alcohol or drug abuse patient.[facility] CenterIn the event this information is protected by the Federal Confidentiality of Alcohol and Drug Abuse Patient Records regulations: The Federal rules restrict any use of the information to criminally investigate or prosecute any alcohol or drug abuse patient.[facility] CenterIn the event this information is protected by the Federal Confidentiality of Alcohol and Drug Abuse Patient Records regulations: The Federal rules restrict any use of the information to criminally investigate or prosecute any alcohol or drug abuse patient.[facility] CenterIn the event this information is protected by the Federal Confidentiality of Alcohol and Drug Abuse Patient Records regulations: The Federal rules restrict any use of the information to criminally investigate or prosecute any alcohol or drug abuse patient.[facility] CenterIn the event this information is protected by the Federal Confidentiality of Alcohol and Drug Abuse Patient Records regulations: The Federal rules restrict any use of the information to criminally investigate or prosecute any alcohol or drug abuse patient.[facility] CenterIn the event this information is protected by the Federal Confidentiality of Alcohol and Drug Abuse Patient Records regulations: The Federal rules restrict any use of the information to criminally investigate or prosecute any alcohol or drug abuse patient.[facility] CenterIn the event this information is protected by the Federal Confidentiality of Alcohol and Drug Abuse Patient Records regulations: The Federal rules restrict any use of the information to criminally investigate or prosecute any alcohol or drug abuse patient.[facility] CenterIn the event this information is protected by the Federal Confidentiality of Alcohol and Drug Abuse Patient Records regulations: The Federal rules restrict any use of the information to criminally investigate or prosecute any alcohol or drug abuse patient.[facility] CenterIn the event this information is protected by the Federal Confidentiality of Alcohol and Drug Abuse Patient Records regulations: The Federal rules restrict any use of the information to criminally investigate or prosecute any alcohol or drug abuse patient.[facility] CenterIn the event this information is protected by the Federal Confidentiality of Alcohol and Drug Abuse Patient Records regulations: The Federal rules restrict any use of the information to criminally investigate or prosecute any alcohol or drug abuse patient.[facility] CenterIn the event this information is protected by the Federal Confidentiality of Alcohol and Drug Abuse Patient Records regulations: The Federal rules restrict any use of the information to criminally investigate or prosecute any alcohol or drug abuse patient.[facility] CenterIn the event this information is protected by the Federal Confidentiality of Alcohol and Drug Abuse Patient Records regulations: The Federal rules restrict any use of the information to criminally investigate or prosecute any alcohol or drug abuse patient.[facility] Reason for Visit (unrecogniz ed section and content) Reason Comments Diabetes Physical Reason Comments Results Reason Onset Date Comments Physical Immunizations 05/27/2022 Flu vaccination Specialty Diagnoses / Procedures Referred By Contac t Referred To Contact Family Medicine / FAMILY MEDICINE Diagnoses My a1c and general overall health Procedures [facility] Pcp, Juan R Ascencio MD [address] [place] [address] Referral ID Status Reason Start Date Expiration Date V isits Requested Visits Authorized [id number] Pending Review 05/04/2022 08/02/2022 1 1 Reason [...] Reason Comments Missed Appointment Pharmacy Visit Stephany francis Reason Comments Lab Orders Reason Onset Date Comments Refill Request 04/17/2024 Reason Onset Date Comments Refill Request 05/07/2024 Reason Onset Date Comments Refill Request 05/28/2024 Reason Comments Orders Reason Comments requesting refill that is Reason Onset Date Comments Refill Request 09/19/2024 Reason Comments Diabetes Specialty Diagnoses / Procedures Referred By Contcheryl t Referred To Contact Diagnoses Type 2 diabetes mellitus with hyperglycemia, unspecified whether terminal makeup operator insulin use (HCC) Procedures CONSULT TO DIABETES EDUCATION DSME/MNT MEDICAL NUTRITION ASSMT&IVNTJ INDIV EACH 15 ID MEDICAL NUTRITION ASSMT&IVNTJ INDIV EACH 15 ID MEDICAL NUTRITION ASSMT&IVNTJ INDIV EACH 15 ID MEDICAL NUTRITION ASSMT&IVNTJ INDIV EACH 15 ID [place] Tavares APRN.[employer]OR[employer] FITNESS AND WELLNESS DIRECTOR [address] [place] [address] Phone: tel: fax: Endocrinology [address] [place] [address] Phone: tel: Referral ID Status Reason Start Date Expiration Date V isits Requested Visits Authorized [id number] Closed PCP Requested Referral 12/23/2023 12/22/2024 1 1 Reason Comments Constipation X9 days, used mag ci trate w/o relief Reason Comments Transition Of Care Reason Comments Transition Of Care Reason Comments Primary Care Pharmacy Appt Care Teams (unrecognized sec tion and content) Manual Plate Filler Relationship Specialty Start Date End Date Juan R Osullivan MD [address] [place], [place] [id number] PCP - General Family Practice 05/05/17 Manual Plate Filler Relationship Specialty Start Date End Date Juan R Osullivan MD [address] [place], [place] [id number] PCP - General Family Practice 05/05/17 Manual Plate Filler Relationship Specialty Start Date End Date Juan R Osullivan MD [address] [place], [place] [id number] [phone] PCP - General Family Medicine 05/05/17 Manual Plate Filler Relationship Specialty Start Date End Date Juan R Osullivan MD [address] [place], [place] [id number] PCP - General Family Medicine 05/05/17 Manual Plate Filler Relationship Specialty Start Date End Date Juan R Osullivan MD [address] [place] [address] PCP - General Family Medicine 05/05/17 Manual Plate Filler Relationship Specialty Start Date End Date Juan R Osullivan MD [address] [place] [address] PCP - General Family Medicine 05/05/17 Manual Plate Filler Relationship Specialty Start Date End Date Juan R Osullivan MD [address] [place] [address] PCP - General Family Medicine 05/05/17 Manual Plate Filler Relationship Specialty Start Date End Date Juan R Osullivan MD [address] [place] [address] PCP - General Family Medicine 05/05/17 Manual Plate Filler Relationship Specialty Start Date End Date Juan R Osullivan MD [address] [place] [address] PCP - General Family Medicine 05/05/17 Manual Plate Filler Relationship Specialty Start Date End Date Juan R Osullivan MD [address] [place] [address] PCP - General Family Medicine 05/05/17 Manual Plate Filler Relationship Specialty Start Date End Date Juan R Osullivan MD [address] [place] [address] PCP - General Family Medicine 05/05/17 Manual Plate Filler Relationship Specialty Start Date End Date Juan R Osullivan MD [address] [place] [address] PCP - General Family Medicine 05/05/17 Manual Plate Filler Relationship Specialty Start Date End Date Juan R Osullivan MD [address] [place] [address] PCP - General Family Medicine 05/05/17 Manual Plate Filler Relationship Specialty Start Date End Date Juan R Osullivan MD [address] [place] [address] PCP - General Family Medicine 05/05/17 Manual Plate Filler Relationship Specialty Start Date End Date Juan R Osullivan MD [address] [place] [address] PCP - General Family Medicine 05/05/17 Manual Plate Filler Relationship Specialty Start Date End Date Juan R Osullivan MD [address] [place] [address] PCP - General Family Medicine 05/05/17 India Tavares APRN.SPORTS FITNESS AND WELLNESS DIRECTOR [address] [place] [address] Turn Supervisor Family Medicine 06/30/24 Manual Plate Filler Relationship Specialty Start Date End Date Juan R Osullivan MD [address] [place] [address] PCP - General Family Medicine 05/05/17 PodlogarIndia APRN.SPORTS FITNESS AND WELLNESS DIRECTOR [address] [place] [address] Turn Supervisor Family Medicine 06/30/24 Karla Almonte APRN.SPORTS FITNESS AND WELLNESS DIRECTOR [address] [place] [address] [facility] 10/15/24 Manual Plate Filler Relationship Specialty Start Date End Date Juan R Osullivan MD [address] [place] [address] PCP - General Family Medicine 05/05/17 Podlogar, CARL OsborneN.SPORTS FITNESS AND WELLNESS DIRECTOR [address] [place] [address] Turn Supervisor Family Medicine 06/30/24 Karla Almonte APRN.SPORTS FITNESS AND WELLNESS DIRECTOR [address] [place] [address] [facility]ly [facility] 10/15/24 Manual Plate Filler Relationship Specialty Start Date End Date Juan R Osullivan MD [address] [place] [address] PCP - General Family Medicine 05/05/17 Podlogar, [place], FRENCH CORD BINDER.SPORTS FITNESS AND WELLNESS DIRECTOR [address] [place] [address] [facility] 06/30/24 Karla Almonte, FRENCH CORD BINDER.SPORTS FITNESS AND WELLNESS DIRECTOR [address] [place] [address] [facility] Medicine 01/03/25 Manual Plate Filler Relationship Specialty Start Date End Date Juan R Osullivan MD [address] [place] [address] PCP - General Family Medicine 05/05/17 Podlogar, [place], FRENCH CORD BINDER.SPORTS FITNESS AND WELLNESS DIRECTOR [address] [place] [address] Formerly [facility] 06/30/24 TristinjatinKarla APRN.SPORTS FITNESS AND WELLNESS DIRECTOR [address] [place] [address] Formerly [facility] 01/03/25 Team Status: Active Member Role/Relationship Status Dates Dr. Pepe Ousllivan MD Primary Care Provider Acti ve Team Status: Inactive Member Role/Relationship Status Dates Dr. Benitez Bianchi MD Admit Provider Active Star t: March 17, 2025 End: March 19, 2025 Dr. Benitez Bianchi MD Other Provider Active Star t: March 17, 2025 End: March 19, 2025 Dr. Pepe Osullivan MD Primary Care Provider Acti ve Start: March 17, 2025 End: March 19, 2025 Dr. Colby Romo MD Other Provider Active Sta rt: March 17, 2025 End: March 19, 2025 Dr. Sae Wilburn DO Other Provider Active St art: March 17, 2025 End: March 19, 2025 Gwendolyn Cooper NP-C Other Provider Active Start : March 17, 2025 End: March 19, 2025 Klarissa Butler NP-Sharda Other Provider Active St art: March 17, 2025 End: March 19, 2025 MATTHEW Brizuela Other Provider Active Star t: March 17, 2025 End: March 19, 2025 Dr. Fadi Caceres MD Other Provider Active Sta rt: March 17, 2025 End: March 19, 2025 Dr. Henrry Tian MD Attending Provider Active Start: March 17, 2025 End: March 19, 2025 Team Status: Active Member Role/Relationship Status Dates Dr. Benitez Bianchi MD Admit Provider Active Star t: March 17, 2025 Dr. Benitez Bianchi MD Attending Provider Active Start: March 17, 2025 Dr. Benitez Bianchi MD Other Provider Active Star t: March 17, 2025 Dr. Pepe Osullivan MD Primary Care Provider Acti ve Start: March 17, 2025 Dr. Colby Romo MD Other Provider Active Sta rt: March 17, 2025 Dr. Sae Wilburn DO Other Provider Active St art: March 17, 2025 ISABELLE Amato Other Provider Active Start : March 17, 2025 ISABELLE Bonilla Other Provider Active St art: March 17, 2025 MATTHEW Brizuela Other Provider Active Star t: March 17, 2025 Dr. Fadi Caceres MD Other Provider Active Sta rt: March 17, 2025 Team Status: Active Member Role/Relationship Status Dates Dr. Benitez Bianchi MD Admit Provider Active Star t: March 17, 2025 Dr. Benitez Bianchi MD Other Provider Active Star t: March 17, 2025 Dr. Pepe Osullivan MD Primary Care Provider Acti ve Start: March 17, 2025 Dr. Colby Romo MD Other Provider Active Sta rt: March 17, 2025 Dr. Sae Wilburn DO Other Provider Active St art: March 17, 2025 ISABELLE Amato Other Provider Active Start : March 17, 2025 ISABELLE Bonilla Other Provider Active St art: March 17, 2025 MATTHEW Brizuela Other Provider Active Star t: March 17, 2025 Dr. Fadi Caceres MD Attending Provider Active Start: March 17, 2025 Dr. Fadi Caceres MD Other Provider Active Sta rt: March 17, 2025 Team Status: Active Member Role/Relationship Status Dates Dr. Benitez Bianchi MD Admit Provider Active Star t: March 18, 2025 Dr. Benitez Bianchi MD Other Provider Active Star t: March 18, 2025 Dr. Pepe Osullivan MD Primary Care Provider Acti ve Start: March 18, 2025 Dr. Colby Romo MD Other Provider Active Sta rt: March 18, 2025 Dr. Sae Wilburn DO Other Provider Active St art: March 18, 2025 ISABELLE Amato Other Provider Active Start : March 18, 2025 ISABELLE Bonilla Other Provider Active St art: March 18, 2025 MATTHEW Brizuela Other Provider Active Star t: March 18, 2025 Dr. Fadi Caceres MD Other Provider Active Sta rt: March 18, 2025 Dr. Henrry Tian MD Other Provider Active Start: March 18, 2025 Ele CASTRO, PA-C Attending Provider Active Start: March 18, 2025 Team Status: Active Member Role/Relationship Status Dates Dr. Benitez Bianchi MD Admit Provider Active Star t: March 18, 2025 Dr. Benitez Bianchi MD Other Provider Active Star t: March 18, 2025 Dr. Pepe Osullivan MD Primary Care Provider Acti ve Start: March 18, 2025 Dr. Colby Romo MD Other Provider Active Sta rt: March 18, 2025 Dr. Sae Wilburn DO Other Provider Active St art: March 18, 2025 ISABELLE Amato Other Provider Active Start : March 18, 2025 ISABELLE Bonilla Other Provider Active St art: March 18, 2025 MATTHEW Brizuela Other Provider Active Star t: March 18, 2025 Dr. Fadi Caceres MD Other Provider Active Sta rt: March 18, 2025 Dr. Henrry Tian MD Attending Provider Active Start: March 18, 2025 Dr. Henrry Tain MD Other Provider Active Start: March 18, 2025 Team Status: Active Member Role/Relationship Status Dates Dr. Benitez Bianchi MD Admit Provider Active Star t: March 18, 2025 Dr. Benitez Bianchi MD Other Provider Active Star t: March 18, 2025 Dr. Pepe Osullivan MD Primary Care Provider Acti ve Start: March 18, 2025 Dr. Colby Romo MD Other Provider Active Sta rt: March 18, 2025 Dr. Sae Wilburn DO Attending Provider Active Start: March 18, 2025 Dr. Sae Wilburn DO Other Provider Active St art: March 18, 2025 ISABELLE Amato Other Provider Active Start : March 18, 2025 ISABELLE Bonilla Other Provider Active St art: March 18, 2025 MATTHEW Brizuela Other Provider Active Star t: March 18, 2025 Dr. Fadi Caceres MD Other Provider Active Sta rt: March 18, 2025 Dr. Henrry Tian MD Other Provider Active Start: March 18, 2025 Team Status: Active Member Role/Relationship Status Dates Dr. Benitez Bianchi MD Admit Provider Active Star t: March 19, 2025 Dr. Benitez Bianchi MD Other Provider Active Star t: March 19, 2025 Dr. Pepe Osullivan MD Primary Care Provider Acti ve Start: March 19, 2025 Dr. Colby Romo MD Other Provider Active Sta rt: March 19, 2025 Dr. Sae Wilburn , Other Provider Active St art: March 19, 2025 ISABELLE Amato Other Provider Active Start : March 19, 2025 ISABELLE Bonilla Other Provider Active St art: March 19, 2025 MATTHEW Brizuela Other Provider Active Star t: March 19, 2025 Dr. Fadi Caceres MD Other Provider Active Sta rt: March 19, 2025 Dr. Henrry Tian MD Other Provider Active Start: March 19, 2025 Ele CASTRO, PA-C Attending Provider Active Start: March 19, 2025 Team Status: Active Member Role/Relationship Status Dates Dr. eBnitez Bianchi MD Admit Provider Active Star t: March 19, 2025 Dr. Benitez Bianchi MD Other Provider Active Star t: March 19, 2025 Dr. Pepe Osullivan MD Primary Care Provider Acti ve Start: March 19, 2025 Dr. Colby Romo MD Other Provider Active Sta rt: March 19, 2025 Dr. Sae Wilburn DO Other Provider Active St art: March 19, 2025 ISABELLE Amato Other Provider Active Start : March 19, 2025 ISABELLE Bonilla Other Provider Active St art: March 19, 2025 MATTHEW Brizuela Other Provider Active Star t: March 19, 2025 Dr. Fadi Caceres MD Other Provider Active Sta rt: March 19, 2025 Dr. Henrry Tian MD Attending Provider Active Start: March 19, 2025 Dr. Henrry Tian MD Other Provider Active Start: March 19, 2025 Manual Plate Filler Relationship Specialty Start Date End Date Juan R Osullivan MD [address] [place] [address] PCP - General Family Medicine 05/05/17 Podlogar, [place], FRENCH CORD BINDER.SPORTS FITNESS AND WELLNESS DIRECTOR [address] [place], [place] [id number] Formerly [facility] 06/30/24 Karla Almonte, FRENCH CORD BINDER.SPORTS FITNESS AND WELLNESS DIRECTOR [address] [place], [place] [address] Former[facility] 01/03/25 Manual Plate Filler Relationship Specialty Start Date End Date Juan R Osullivan MD [address] [place], [place] [address] PCP - General Family Medicine 05/05/17 Podlogar, [place], FRENCH CORD BINDER.SPORTS FITNESS AND WELLNESS DIRECTOR [address] [place] [address] Formerly [facility] 06/30/24 Karla Almonte, FRENCH CORD BINDER.SPORTS FITNESS AND WELLNESS DIRECTOR [address] [place], [place] [address] Former[facility] 01/03/25 Team Status: Inactive Member Role/Relationship Status Dates Dr. Pepe Osullivan MD Primary Care Provider Acti ve Start: March 28, 2025 End: March 28, 2025 Dr. Pepe Osullivan MD Referring Provider Active Start: March 28, 2025 End: March 28, 2025 Dr. Fadi Caceres MD Attending Provider Active Start: March 28, 2025 End: March 28, 2025 Manual Plate Filler Relationship Specialty Start Date End Date Juan R Osullivan MD [address] [place], [place] [address] PCP - General Family Medicine 05/05/17 Podlogar, [place], FRENCH CORD BINDER.SPORTS FITNESS AND WELLNESS DIRECTOR [address] [place] [address] Formerly [facility] 06/30/24 Karla Almonte APRN.SPORTS FITNESS AND WELLNESS DIRECTOR [address] [place] [address] Formerly [facility] 01/03/25 Team Status: Inactive Member Role/Relationship Status Dates Dr. Pepe Osullivan MD Primary Care Provider Acti ve Start: April 01, 2025 End: April 01, 2025 Dr. Pepe Osullivan MD Referring Provider Active Start: April 01, 2025 End: April 01, 2025 ISABELLE Bonilla Attending Provider Active Start: April 01, 2025 End: April 01, 2025 Team Status: Active Member Role/Relationship Status Dates Dr. Benitez Bianchi MD Admit Provider Active Star t: March 17, 2025 Dr. Benitez Bianchi MD Other Provider Active Star t: March 17, 2025 Dr. Pepe Osullivan MD Primary Care Provider Acti ve Start: March 17, 2025 Dr. oClby Romo MD Other Provider Active Sta rt: March 17, 2025 Dr. Sae Wilburn DO Other Provider Active St art: March 17, 2025 ISABELLE Amato Other Provider Active Start : March 17, 2025 ISABELLE Bonilla Other Provider Active St art: March 17, 2025 MATTHEW Brizuela Other Provider Active Star t: March 17, 2025 Dr. Fadi Caceres MD Attending Provider Active Start: March 17, 2025 Dr. Fadi Caceres MD Other Provider Active Sta rt: March 17, 2025 Dr. Henrry Tian MD Referring Provider Active Start: March 17, 2025 Team Status: Inactive Member Role/Relationship Status Dates Dr. Pepe Osullivan MD Primary Care Provider Acti ve Start: April 08, 2025 End: April 08, 2025 Dr. Pepe Osullivan MD Referring Provider Active Start: April 08, 2025 End: April 08, 2025 Dr. Sae Wilburn DO Attending Provider Active Start: April 08, 2025 End: April 08, 2025 Team Status: Active Member Role/Relationship Status Dates Dr. Pepe Osullivan MD Primary Care Provider Acti ve Start: April 08, 2025 Dr. Pepe Osullivan MD Referring Provider Active Start: April 08, 2025 Dr. Sae Wilburn DO Attending Provider Active Start: April 08, 2025 Dr. Sae Wilburn DO Other Provider Active St art: April 08, 2025 (unrecognized sect ion and content) No Status Records FoundNo Status Records FoundNo Status Records FoundNo Status Records Found INFORMATION SOURCE (unrecogn ized section and content) DATE CREATED AUTHOR 12/26/2023 [facility] DATE CREATED AUTHOR AUTHOR'S ORGANIZ ATION 03/24/2025 [facility] DATE CREATED AUTHOR AUTHOR'S ORGANIZ ATION 04/07/2025 [facility] DATE CREATED AUTHOR AUTHOR'S ORGANIZ ATION 04/09/2025 [facility] FOR RECORDS PERTAINING TO PATIENTS WHO [...] BE BASED ON THE PRIMARY CLINICAL RECORDS. [employer] provides no warranty or guarantee of the accuracy or completeness of information in this document.
--- NOTE | 2025-04-11 06:20 | CT_ITS ---
PROCEDURE: ABDOMEN/PELVIS WITH CONTRAST 04/11/2025 REASON FOR EXAM: COLONIC MASS TECHNIQUE: Procedure Code: [id number] Modality: CT Procedure: ABDOMEN/PELVIS WITH CONTRAST Coronal and Sagittal reconstruction series were provided. CONTRAST: Isovue 370 VOLUME: 95 mL One or more dose reduction techniques were used (e.g., Automated exposure control, adjustment of the mA and/or kV according to patient size, use of iterative reconstruction technique. RADIATION DOSE SUMMARY: CTDlvol: 9+ 19 mGy DLP: 990 mGycm COMPARISON: 03/17/2025 CT. FINDINGS: The lung bases are clear. The peripheral soft tissues are unremarkable. Grade 1 anterolisthesis of L5 on S1 with bilateral L5 pars defects. Mild atherosclerosis. Normal caliber abdominal aorta. No suspicious lymphadenopathy stable hepatic dome subcentimeter hypodense lesion which is too small to characterize. The gallbladder, pancreas, spleen, adrenals are unremarkable. Bilateral kidney simple cysts. Additional bilateral subcentimeter renal hypodense lesions that are too small to characterize. No hydroureteronephrosis. No urinary bladder wall thickening. Markedly enlarged prostate. Stable marked focal wall thickening of the sigmoid colon with mild adjacent fat stranding compatible with a sigmoid mass. Lipomatosis of the ileocecal valve. CT/Abdomen/Pelvis WITH Contrast IMPRESSION: Stable sigmoid mass. Reading Location: [id number]
== END | disposition home or self-care (01) ==
PROVIDERS: PCP Family Medicine; Referring Provider Surgery; Visit Provider Surgery
DX: K63.89 Other specified diseases of intestine (principal); K55.9 Vascular disorder of intestine, unspecified
CPT/HCPCS: 74177; Q9967